=== PATIENT | female | born 1935 | race Caucasian/White ===

== ENCOUNTER → 2018-01-01 08:52 | Outpatient (CLI) | payer MEDICARE, BC, OTHER, SELFPAY ==
--- NOTE | 2018-01-01 09:00 | BD_ITS ---
STUDY: DUAL ENERGY X-RAY ABSORPTIOMETRY / DXA REASON FOR EXAM: Female, 82 years old. The patient is postmenopausal. Loss of height of 1 inch. TECHNIQUE: Bone Mineral Density (BMD) measurements of lumbar spine and bilateral hips were obtained. COMPARISON: Comparison is made with prior study dated December 28, 2015. FINDINGS: Lumbar Spine (L1-L4): g/cm2 (1.070) / T-score (-1.1) / Z-score (0.8) Findings are suggestive of osteopenia with a low fracture risk. Left Femur Total: g/cm2 (0.724) / T-score (-2.3) / Z-score (-0.2) Left Femoral Neck: g/cm2 (0.579) / T-score (-3.3) / Z-score (-1.1) Right Femur Total: g/cm2 (0.776) / T-score (-1.8) / Z-score (0.2) Right Femoral Neck: g/cm2 (0.703) / T-score (-2.4) / Z-score (-0.2) The T-Scores on the most recent prior examination were: Lumbar Spine (L1-L4): There has been worsening of bone density since the previous examination. Left Femur Total: which represents an improvement of 3.6%. Right Femur Total: which represents an improvement of 0.6%. BD/Dexa Bone Density Study IMPRESSION: The patient is considered osteoporotic as outlined below according to World [employer] Organization (WHO) criteria with a high fracture risk. There has been improvement of bone density since the previous examination. Reference Information: The T-score is the number of standard deviations above or below the standard which is normal for young adults at their peak bone mineral density. The World Health Organization (WHO) interprets the T-scores as follows: Above -1 Normal bone density Between -1 and -2.5 Osteopenia Equal to / or below -2.5 Osteoporosis As a practical clinical guideline, osteopenia may be graded as follows: Mild -1 through -1.5 Moderate -1.6 through -2.0 Severe -2.1 through -2.4 The Z-score is the number of standard deviations above or below age-matched controls. A Z-score of less than -1.5 would be considered abnormal. References: 1. NIH Osteoporosis and Related Bone Diseases http://www.osteo.org 2. International Society for Clinical Densitometry http://www.iscd.org 3. National Osteoporosis Foundation http://www.nof.org Electronically Signed: Arjun Dan MD at 14:40 EDT Tel [phone], Service support ,
== END ==
PROVIDERS: Family Provider Internal Medicine; PCP Internal Medicine; Visit Provider Internal Medicine
DX: Z78.0 Asymptomatic menopausal state (principal)
CPT/HCPCS: 77080

== ENCOUNTER → 2018-06-11 09:45 | Outpatient (CLI) | payer MEDICARE, BC, OTHER, SELFPAY ==
--- NOTE | 2018-06-11 09:50 | CDU_ITS ---
Reason For Study: CAROTID STENOSIS Rt. Velocities/BP Lt. Velocities/BP Prox CCA 69.8/11.1 cm/sec. Prox CCA 68.4/13.0 cm/sec. Mid CCA 87.9/16.4 cm/sec. Mid CCA 85.0/17.0 cm/sec. Dist CCA 75.0/13.5 cm/sec. Dist CCA 78.0/15.2 cm/sec. Prox ICA 80.3/20.5 cm/sec. Prox ICA 78.6/17.6 cm/sec. Mid ICA 97.9/23.5 cm/sec. Mid ICA 90.3/21.7 cm/sec. Dist ICA 103.0/22.9 cm/sec. Dist ICA 129.0/35.4 cm/sec. Rt. ICA/CCA = 103.0/87.9=1.2. Lt. ICA/CCA = 129.0/85.0=1.5. Prox ECA 191.0/0.0 cm/sec. Prox ECA 105.0/5.28 cm/sec. Rt. Vert. 42.0/8.25 cm/sec. Lt. Vert. 39.7/9.82 cm/sec. Right Extracranial There is homogeneous, smooth atherosclerotic plaque noted in the right common carotid artery. There is heterogeneous, irregular atherosclerotic plaque noted in the right internal carotid artery. There is heterogeneous, irregular atherosclerotic plaque noted in the right external carotid artery. Antegrade flow is noted in the right vertebral artery. Left Extracranial There is homogeneous, smooth atherosclerotic plaque noted in the left common carotid artery. There is heterogeneous, irregular atherosclerotic plaque noted in the left internal carotid artery. The tortuous nature of the left distal internal carotid artery may result in flow velocities overestimating the degree of stenosis. There is heterogeneous, irregular atherosclerotic plaque noted in the left external carotid artery. Antegrade flow is noted in the left vertebral artery. Procedure Carotid Duplex [id number]. The exam was diagnostic. Exam performed in department. Interpretation Summary Mild (<50%) stenosis right extracranial internal carotid. However, acoustic shadowing is noted in the proximal right internal carotid artery, which obscures visualization of the arterial lumen. Therefore, the degree of stenosis may exceed that which is estimated by velocity criteria alone, and clinical correlation is advised. Mild (<50%) stenosis left extracranial internal carotid. Flow within the vertebral arteries is antegrade bilaterally. Significant stenosis is noted in the right external carotid artery. Ordering Physician: Audrey Golden Referring Physician: Audrey Golden Performed By: Leanna Scanlon, HAWA, RVT
== END ==
PROVIDERS: Family Provider Internal Medicine; PCP Internal Medicine; Visit Provider Internal Medicine
DX: I65.23 Occlusion and stenosis of bilateral carotid arteries (principal)
CPT/HCPCS: 93880

== ENCOUNTER → 2018-07-02 09:19 | Outpatient (CLI) | payer MEDICARE, BC, OTHER, SELFPAY ==
--- NOTE | 2018-07-02 09:23 | CT_ITS ---
STUDY: CT ANGIOGRAM OF THE NECK WITH CONTRAST REASON FOR EXAM: Female, 83 years old. Bilateral carotid stenosis. RADIATION DOSAGE (If Supplied By Facility): CTDIvol = ( 19.05 ) mGy, DLP = ( 524.63 ) mGycm. Individualized dose optimization techniques were used for this CT.? TECHNIQUE: IV contrast Isovue-370, 100 mL. Thin slice helical [address] endocrine was performed of the cervical vasculature. Coronal and sagittal, curved planar, 3-D volume rendered reformatted images and MIP reformatted images saved to the PACS archive. COMPARISON: Carotid duplex ultrasound 06/11/2018. FINDINGS: Extra cranial soft tissues including orbital contents exhibit no acute process. Paranasal sinuses are clear. Mastoid air cells and middle ear cavities are clear. Craniofacial osseous structures unremarkable. There is prominent multilevel cervical degenerative disc disease with uncovertebral joint hypertrophy contributing to foraminal narrowing between C5-C6, C6-C7. Mild to moderate foraminal narrowing. Apical lungs are clear but with features consistent with underlying COPD/emphysema. Apical thoracic cage intact. Upper thoracic soft tissues unremarkable. Supraclavicular soft tissues exhibit no acute process. Mild heterogeneity of the thyroid gland without dominant nodule. No cervical mass or lymphadenopathy. Normal submandibular and parotid glands. Normal pharyngeal and laryngeal structures. No acute intracranial process is evident in limited evaluation. Grossly normal arborization of the intracranial arteries without visible stenosis, occlusion or aneurysm. Cervical vertebral arteries: Normal. Aorta: Mild atherosclerosis, otherwise normal, widely patent three-vessel cervical arch branching and normal subclavian arteries. Right carotid artery: Minimal plaque of the bulb, no stenosis. Left carotid artery: Minimal plaque of the bulb, no stenosis. CT/CTA Neck W/WO Contrast IMPRESSION: There is no carotid or vertebral artery stenosis. NASCET Criteria : Favian H, et al. Quantitative Vascular Measurements in Arterial Occlusive Disease. [employer] 2005;25:7919-2109. Electronically Signed: Alvaro Lancaster, at 17:50 EDT Tel , Service support ,
[2018-07-02 09:36] LABS: CREATININE FINGERSTICK 0.7 mg/dL (0.55-1.02); EGFR FINGERSTICK > 60.0000 mL/min (>60)
== END ==
PROVIDERS: Family Provider Internal Medicine; PCP Internal Medicine; Referring Provider Internal Medicine; Visit Provider Internal Medicine
DX: I65.23 Occlusion and stenosis of bilateral carotid arteries (principal)
CPT/HCPCS: 70498; Q9967

== ENCOUNTER → 2018-10-14 12:09 | Outpatient (CLI) | payer MEDICARE, BC, OTHER, SELFPAY ==
--- NOTE | 2018-10-14 12:16 | BI_ITS ---
MAMMOGRAPHY - BILATERAL SCREENING REASON FOR EXAM: Female, 83 years old. Routine annual screening examination. PERTINENT HISTORY: Non-contributory. TECHNIQUE: Digital bilateral breast jesse (3D mammographic acquisition) in the CC and MLO projections. 2-D mediolateral oblique (MLO) and craniocaudad (CC) views of both breasts were obtained. CAD: Full Field Digital Mammography with Computer Added Detection was performed. COMPARISON: Comparison is made with prior study dated August 25, 2017 and August 11, 2016. FINDINGS: Breast Composition: There are scattered areas of fibroglandular density. There are no dominant masses or suspicious calcifications. Stable small benign-appearing left axillary lymph nodes. No other significant abnormalities are identified. There has been no significant change since the prior study. BI/SCREENING MAMM (CAD), BILAT IMPRESSION: Stable bilateral screening mammogram. Yearly follow-up mammogram recommended. (A) ASSESSMENT CATEGORY: BIRADS Category 2: Benign. A letter regarding these results will be sent to the patient by the facility within 30 days. Approximately 10% of breast cancers are not detected by mammography. A normal mammogram should not delay biopsy of a clinically suspicious abnormality. [id number] Electronically Signed: Arjun Dan MD at 13:45 EST Tel [phone], Service support ,
--- OUTSIDE RECORDS SUMMARY | 2018-12-16 23:14 | XMS RPT_ITS | Continuity of Care Document ---
:1935 Author Organization [facility] Address [address] [place] [address] Phone Care Team Providers Name Role Phone Ke Rodriguez DOa A Unavailable Fast , Audrey A Unavailable Dr. Tyler Bagley Unavailable Sully Wright Unavailable Unavailable Kindra Vargas Unavailable Unavailable Az Graves Unavailable Unavailable Unavailable Unavailable Problems Name Dates Details Abnormal blood chemistry (R79.9, 790.6) Status: Active Abnormal Chest X-Ray (793.9) Status: Active Allergic reaction, initial encounter (T78.40XA, 995.3) Status: Active Annual Medicare Phyiscal WITHOUT abnormal findings (Renamed from Encounter for general adult medical examination without abnormal findings) (Z00.00, V70.9) Status: Active Bilateral carotid artery stenosis (I65.23, 433.10) Comments: cta was negative Status: Active BMI 29.0-29.9,adult (Z68.29, V85.25) Status: Active BMI 30.0-30.9,adult (Z68.30, V85.30) Status: Active Branch retinal artery occlusion of right eye (H34.231, 362.32) Comments: workup neg Status: Active Carpal tunnel syndrome, unspecified laterality (G56.00, 354.0) Status: Active Central retinal vein occlusion (H34.8192, 362.35) Comments: has had work up was off aspirin - had echo /carotids /hypercoag workup and rule out vasculitis Status: Active Chronic pain of left knee (M25.562, 719.46) Comments: better Status: Active Colonoscopy Comments: 10-21-09 Repeat 5 yrs. Status: Active Encounter for screening mammogram for breast cancer (Renamed from Encounter for screening mammogram for malignant neoplasm of breast) (Z12.31, V76.12) Status: Active Encounter for screening mammogram for breast cancer (Renamed from Encounter for screening mammogram for malignant neoplasm of breast) (Z12.31, V76.12) Status: Active Encounter for screening mammogram for breast cancer (Renamed from Encounter for screening mammogram for malignant neoplasm of breast) (Z12.31, V76.12) Status: Active Eustachian tube dysfunction (H69.80, 381.81) Status: Active Family history of diabetes mellitus (Z83.3, V18.0) Status: Active Family history of ischemic heart disease (Z82.49, V17.3) Status: Active Family history of malignant neoplasm of gastrointestinal tract (Z80.0, V16.0) Status: Active Fatigue (R53.83, 780.79) -Jun-2012 Status: Active Gastroesophageal reflux disease without esophagitis (K21.9, 530.81) Status: Active Hearing loss, unspecified laterality (389.9) Status: Active Hematuria (R31.9, 599.70) Comments: etioligy infection vs stone vs primary bladder problem?-- send for cx and rto end of week to re-eval if needs rx vs ct vs urology consult --pt remains asx at time Status: Active Herpes zoster without complication (B02.9, 053.9) Status: Active History of colon polyps (Z86.010, V12.72) Status: Active Hypercholesterolemia (E78.00, 272.0) Status: Active Hyperglycemia (R73.9, 790.29) Status: Active Hypertensive heart disease without congestive heart failure (I11.9, 402.90) Status: Active Impaired fasting glucose (R73.01, 790.21) Status: Active [facility]LL[facility] EXAM Status: Active [facility] Physical Status: Active Need for prophylactic vaccination and inoculation against influenza (Z23, V04.81) Status: Active Need for prophylactic vaccination and inoculation against influenza (Renamed from Need for immunization against influenza) (Z23, V04.81) Status: Active Need for prophylactic vaccination and inoculation against influenza (Renamed from Need for immunization against influenza) (Z23, V04.81) Status: Active Nonsmoker (Z78.9, V49.89) Status: Active Obstructive sleep apnea, adult (G47.33, 327.23) Comments: chronic stable-continue present regimen Status: Active Osteoarthritis (M19.90, 715.90) Comments: getting knee replacement Status: Active Osteoporosis (M81.0, 733.00) Status: Active Other abnormal finding of urine (R82.99, 791.9) Status: Active Other intervertebral disc degeneration, lumbar region (M51.36, 722.52) Status: Active Other specified cardiac dysrhythmias (I49.8, 427.89) Status: Active Other viral warts (B07.8, 078.19) Comments: cryo x 40 seconds right index finger Status: Active Peripheral vascular disease (I73.9, 443.9) Status: Active Postmenopausal (Renamed from Postmenopausal status) (Z78.0, V49.81) Status: Active Pre-operative exam (Renamed from Encounter for pre-operative examination) (Z01.818, V72.84) Status: Active screening Status: Active SCREENING MAMMOGRAM NEC (Z12.31, V76.12) Status: Active 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) Comments: improving Status: Active Upper respiratory tract infection, unspecified type (J06.9, 465.9) Status: Active Urinary frequency (R35.0, 788.41) Status: Active Urinary tract infection, site not specified (N39.0, 599.0) Status: Active Vitamin B 12 deficiency (E53.8, 266.2) Status: Active Vitamin D deficiency (E55.9, 268.9) Status: Active Medications Name Dates Details Aspirin 325 MG Oral Tablet Active 1 tab daily (325 MG) Atorvastatin Calcium 80 MG Oral Tablet 1 (one) Tablet qd for 0 days Quantity: 90 {Tablet} Refills: 3 Ordered:30-Sep-2018 Fast DO, Audrey AFast DO, Audrey A Start : 30-Sep-2018 Active Atorvastatin Calcium 80 MG Oral Tablet 1 (one) Tablet qd for 0 days Quantity: 90 {Tablet} Refills: 3 Ordered:30-Sep-2018 Audrey Rodriguez DO, DO Audrey Simon Start : 30-Sep-2018 Active Lotrel 10-40 MG Oral Capsule 1 Capsule daily for 90 days Quantity: 90 {Capsule} Refills: 3 Ordered:04-Feb-2018 Audrey Rodriguez DO, DO Audrey Simon Start : 04-Feb-2018 Active Micardis 40 MG Oral Tablet 1 Tablet qd for 90 days Quantity: 90 {Tablet} Refills: 3 Ordered:17-May-2018 Audrey Rodriguez DO, DO Audrey Simon Start : 17-May-2018 Active Mobic 7.5 MG Oral Tablet 1 (one) Tablet bid prn with food for 0 days Quantity: 180 {Tablet} Refills: 1 Ordered:03-Jun-2018 Audrey Rodriguez DO, DO Audrey Simon Start : 03-Jun-2018 Active Omeprazole 20 MG Oral Capsule Delayed Release [address] qd for 0 days Quantity: 90 {Capsule} Refills: 3 Ordered:18-Dec-2017 Audrey Rodriguez DO, DO Audrey Simon Start : 18-Dec-2017 Active OXYBUTYNIN CHLORIDE ER, 10MG (Oral Tablet Extended Release 24 Hour) 1 tab daily (10 MG) Active Vitamin D3 5000 UNIT Oral Capsule 1 (one) Capsule qd for 0 days Quantity: 60 {Capsule} Refills: 0 Ordered:05-Apr-2016 Audrey Rodriguez DO, DO Audrey Simon Start : 05-Apr-2016 Active Comments:take 3 one day - 1 rest of week AMOXICILLIN, 875MG (Oral Tablet) 1 (one) Tablet bid for 21 days Quantity: 42 {Tablet} Refills: 0 Ordered:21-Nov-2013 Audrey Rodriguez DO, DO Audrey Simon Start : 21-Nov-2013 End : 12-Dec-2013 Inactive Comments:with probiotic Atorvastatin Calcium 10 MG Oral Tablet 1 (one) Tablet Tablet qd for 0 days Quantity: 90 {Tablet} Refills: 3 Ordered:24-Jun-2018 Audrey Rodriguez DO, DO Audrey Simon Start : 04-Feb-2018 End : 24-Jun-2018 Inactive Atorvastatin Calcium 20 MG Oral Tablet 11/2 qd (20 MG) Start : 01-Feb-2018 Inactive BENICAR, 20MG (Oral Tablet) 1 (one) Tablet qd for 0 days Quantity: 30 {Tablet} Refills: 3 Ordered:01-Feb-2010 Kindra Vargas Start : 12-May-2009 Inactive BIAXIN XL PAC, 500MG (Oral Tablet Extended Release 24 Hour) 2 (two) Tablet ER 24HR as directed for 0 days Quantity: 1 {Package(s)} Refills: 0 Ordered:20-Nov-2006 [place] [facility] Start : 20-Nov-2006 End : 26-Jul-2007 Inactive Comments:hold zocor while take DIFLUCAN, 150MG (Oral Tablet) 1 (one) Tablet qd for 0 days Quantity: 5 {Tablet} Refills: 0 Ordered:01-Feb-2010 Kindra Vargas Start : 02-Nov-2009 Inactive METOPROLOL SUCCINATE, 50MG (Oral Tablet Extended Release 24 Hour) 1 Tablet ER 24HR daily for 0 days Quantity: 30 {Tablet_ER_24HR} Refills: 3 Ordered:06-Apr-2011 KENDALL Matamoros Start : 05-Apr-2011 End : 06-Apr-2011 Inactive Comments:disregard first fax for 25mg, pt to take 50mg-jjp VITAMIN B-12, 500MCG (Sublingual Tablet Sublingual) 1 (one) Tab Sublingual daily for 30 days Quantity: 30 {Tablet} Refills: 0 Ordered:08-Feb-2016 [place] NIETO, Audrey AFsly DO, Audrey A Start : 30-Nov-2015 End : 30-Dec-2015 Inactive ZOSTAVAX, 23026WHQ/0.65ML (Subcutaneous Solution Reconstituted) 1 For Solution x1-bring to doctors office once picked up for 0 days Quantity: 1 {For_Solution} Refills: 0 Ordered:01-Feb-2010 Kindra Vargas Start : 19-Oct-2009 Inactive ZOVIRAX, 5% (External Ointment) PRN for 0 days Refills: 0 Ordered:15-Oct-2012 Kindra Vargas End : 15-Oct-2012 Inactive Augmentin 875-125 MG Oral Tablet 1 Tablet Twice daily for 0 days Quantity: 28 {Tablet} Refills: 0 Ordered:05-Jun-2016 Kindra Vargas Start : 20-Oct-2015 End : 05-Jun-2016 Discontinued BONIVA, 150MG (Oral Tablet) 1 (one) Tablet q month for 90 days Quantity: 3 {Tablet} Refills: 3 Ordered:12-Dec-2011 Fast DO, Audrey AFast DO, Audrey A Start : 12-Dec-2011 End : 12-Dec-2011 Discontinued CALCIUM 500, 500MG (Oral Tablet) 1 (one) Tablet tid for 0 days Quantity: 90 {Tablet} Refills: 0 Ordered:04-Dec-2017 Fast DO, Audrey AFast DO, Audrey A Start : 02-Nov-2009 End : 04-Dec-2017 Discontinued Comments:This order discontinued per [facility]. Calcium Citrate Plus Oral Tablet 1 (one) Tablet 500 mg qd for 0 days Quantity: 30 {Tablet} Refills: 0 Ordered:13-Mar-2018 Carley Wise Start : 04-Dec-2017 End : 13-Mar-2018 Discontinued CEFDINIR, 300MG (Oral Capsule) 1 Capsule bid for 0 days Quantity: 20 {Capsule} Refills: 0 Ordered:15-Oct-2012 Fast DO, Audrey AFast DO, Audrey A Start : 15-Oct-2012 End : 15-Oct-2012 Discontinued CIPRO, 500MG (Oral Tablet) 1 (one) Tablet bid for 0 days Quantity: 20 {Tablet} Refills: 0 Ordered:01-Jul-2012 Fast DO, Audrey AFast DO, Audrey A Start : 01-Jul-2012 End : 01-Jul-2012 Discontinued Claritin 10 MG Oral Tablet 1 tab Tablet qd, prn for 0 days Quantity: 30 {Tablet} Refills: 0 Ordered:06-Aug-2017 Kindra Vargas Start : 15-Oct-2012 End : 06-Aug-2017 Discontinued Crestor 20 MG Oral Tablet 1/2 Tablet 3 times weekly for 0 days Quantity: 90 {Tablet} Refills: 3 Ordered:05-Jun-2016 Fast DO, Audrey AFast DO, Audrey A Start : 05-Jun-2016 End : 05-Jun-2016 Discontinued Crestor 20 MG Oral Tablet 1/2 Tablet 3 times weekly for 0 days Quantity: 90 {Tablet} Refills: 3 Ordered:05-Jun-2016 Fast DO, Audrey AFast DO, Audrey A Start : 05-Jun-2016 End : 05-Jun-2016 Discontinued ERGOCALCIFEROL, 52802OYUF (Oral Capsule) 1 (one) Capsule twice a week for 0 days Quantity: 24 {Capsule} Refills: 0 Ordered:12-May-2009 [place] NIETO Audrey SALINASsly DO, Audrey A Start : 12-May-2009 End : 12-May-2009 Discontinued FLAVOXATE HCL, 100MG (Oral Tablet) 1 Tablet tid for 0 days Quantity: 12 {Tablet} Refills: 0 Ordered:17-Jul-2012 [place] NIETO Audrey SALINASsly DO, Audrey A Start : 17-Jul-2012 End : 17-Jul-2012 Discontinued FOSAMAX, 70MG (Oral Tablet) 1 Tablet Daily for 0 days Quantity: 12 {Tablet} Refills: 3 Ordered:30-Jul-2006 Marium Liu RN Start : 30-Jul-2006 End : 12-Sep-2006 Discontinued HYDROCHLOROTHIAZIDE, 25MG (Oral Tablet) 1 (one) Tablet qd for 90 days Quantity: 90 {Tablet} Refills: 3 Ordered:28-May-2013 [place] NIETO Audrey SALINASsly NIETO Audrey A Start : 28-May-2013 End : 28-May-2013 Discontinued Comments:but she doesnt take it qd because she doesnt want to have to be using the restroom all day KEFLEX, 500MG (Oral Capsule) 1 (one) Capsule bid [id number] for 0 days Quantity: 20 {Capsule} Refills: 0 Ordered:30-Aug-2012 [place] NIETO Audrey SALINASsly , Audrey A Start : 30-Aug-2012 End : 30-Aug-2012 Discontinued Metoprolol Tartrate 25 MG Oral Tablet 1 (one) Tablet qd for 90 days Quantity: 90 {Tablet} Refills: 3 Ordered:06-Aug-2017 Kindra Vargas Start : 28-Jan-2014 End : 06-Aug-2017 Discontinued NASONEX, 50MCG/ACT (Nasal Suspension) 2 (two) Suspension qd for 0 days Quantity: 1 {Suspension} Refills: 0 Ordered:15-Oct-2012 [place] NIETO Audrey AFast DO, Audrey A Start : 15-Oct-2012 End : 15-Oct-2012 Discontinued Neurontin 100 MG Oral Capsule 1 (one) Capsule Capsule tid for 0 days Quantity: 360 {Capsule} Refills: 2 Ordered:06-Aug-2017 Kindra Vargas Start : 19-Jun-2016 End : 06-Aug-2017 Discontinued Comments:1 pill tid for 3 days then 2 tid for 3 days then 3 tid Pravastatin Sodium 10 MG Oral Tablet 1 (one) Tablet Tablet qeve for 0 days Quantity: 30 {Tablet} Refills: 3 Ordered:06-Sep-2016 [place] DO, Audrey AFast DO, Audrey A Start : 06-Sep-2016 End : 06-Sep-2016 Discontinued PredniSONE 10 MG Oral Tablet 1 Tablet uad for 0 days Quantity: 18 {QS} Refills: 0 Ordered:08-Dec-2016 Kindra Vargas Start : 06-Sep-2016 End : 08-Dec-2016 Discontinued Comments:3 pills for 3 days 2 pills for 3 days 1 pill for 3 days - take with food in am PRILOSEC, 20MG (Oral Capsule Delayed Release) [address] qd, prn for 0 days Quantity: 90 {Capsule_DR} Refills: 3 Ordered:12-Dec-2011 [place] NIETO Audrey AFast DO, Audrey A Start : 12-Dec-2011 End : 12-Dec-2011 Discontinued Probiotic Oral Capsule 1 (one) Capsule Capsule 2 hours after atb for 0 days Quantity: 1 {Bottle} Refills: 0 Ordered:06-Aug-2017 Kindra Vargas Start : 27-Oct-2013 End : 06-Aug-2017 Discontinued Comments:or 20 for 10 days Prolia 60 MG/ML Subcutaneous Solution 1 (one) Solution sq q 6months for 0 days Quantity: 1 {Pre-filled_Pen_Syringe} Refills: 1 Ordered:14-Jun-2016 [place] NIETO, Audrey AFast DO, Audrey A Start : 14-Jun-2016 End : 14-Jun-2016 Discontinued Comments:Lot #:[id number] date:07/2018Amount given:60mg/mlRoute: SQSite given: left armGiven by: ARABELLA Burgos Valtrex 1 GM Oral Tablet 1 (one) Tablet Tablet tid for 0 days Quantity: 21 {Tablet} Refills: 0 Ordered:06-Aug-2017 Kindra Vargas Start : 19-Jun-2016 End : 06-Aug-2017 Discontinued ZOCOR, 40MG (Oral Tablet) 1 Tablet Daily for 0 days Quantity: 90 {Tablet} Refills: 3 Ordered:20-Sep-2007 Fast DO, Audrey AFast DO, Audrey A Start : 20-Sep-2007 End : 20-Sep-2007 Discontinued Comments:generic Allergies and Adverse Reactions Name Dates Details BENICAR, 20MG (Oral Tablet) Status: Active (Allergy) Comments: dizzy Cipro *FLUOROQUINOLONES* (Allergy) Status: Active Comments: severe myalgia Estrace *VAGINAL PRODUCTS* Status: Active (Allergy) Comments: severe vaginal pain No Known Drug Allergies (Allergy) Onset: 28-May-2013 Status: Inactive Prolia *ENDOCRINE AND METABOLIC Status: Active AGENTS - MISC.* (Allergy) Comments: joint pain hives gi upset Past Medical History Name Dates Details Abnormal mammogram (R92.8, 793.80) Status: Resolved as of 12-May-2009 ACUTE CYSTITIS (N30.00, 595.0) Comments: completed atb course 2 weeks ago -- no symptoms Status: Resolved as of 24-Jun-2014 Acute sinusitis, unspecified (J01.90, 461.9) 08-Aug-2011 Status: Resolved as of 22-Jan-2013 BMI 28.0-28.9,adult (Z68.28, V85.24) Status: Inactive as of 24-Jun-2018 BMI 29.0-29.9,adult (Z68.29, V85.25) Status: Inactive as of 04-Dec-2017 BMI 29.0-29.9,adult (Z68.29, V85.25) Status: Inactive as of 30-Sep-2018 Bronchitis (J40, 490) Status: Resolved as of 03-Feb-2009 Candidiasis, unspecified (B37.9, 112.9) Status: Resolved as of 01-Feb-2010 Cerumen impaction (H61.20, 380.4) Comments: refused irrigation Status: Resolved as of 20-Nov-2011 Chest pain (R07.9, 786.59) Status: Resolved as of 03-Feb-2009 claudication Status: Inactive as of 30-Mar-2009 Cold sore (B00.1, 054.9) Status: Resolved as of 22-Jan-2013 Contact dermatitis and other eczema due to plants (except food) (L25.5, 692.6) Status: Resolved as of 03-May-2010 Dysuria (R30.0, 788.1) Status: Resolved as of 22-Jan-2013 Dysuria (R30.0, 788.1) Status: Resolved as of 30-Nov-2010 Edema (R60.9, 782.3) Status: Resolved as of 03-Feb-2009 Encounter for Medicare annual wellness exam (Z00.00, V70.0) Status: Inactive as of 24-Jun-2014 Encounter for screening for malignant neoplasm of cervix (Z12.4, V76.2) Status: Inactive as of 24-Jun-2014 Hematuria (Renamed from Blood in the urine) (R31.9, 599.7) Status: Inactive as of 04-Dec-2017 Immunization Hx: Shingles vaccine (Renamed from Shingles vaccine) Comments: 11/03 Status: Inactive Left leg swelling (M79.89, 729.81) Status: Inactive as of 04-Dec-2017 lower ext edema Status: Resolved as of 03-Feb-2009 Need for prophylactic vaccination and inoculation against influenza (Z23, V04.81) Status: Inactive as of 02-Sep-2010 screening Status: Inactive as of 24-Aug-2009 screening Status: Inactive as of 30-Nov-2010 screening Status: Inactive as of 24-Jun-2014 screening Status: Inactive as of 22-Jan-2013 supraventricular ectopy- avoid caffeine and decongestants- has had recent full cardiac workup and not significant enough to treat- avoid caffeine and decongestants Status: Inactive as of 30-Mar-2009 Swelling of limb (M79.89, 729.81) Status: Resolved as of 30-Nov-2010 Tachycardia, unspecified (R00.0, 785.0) Status: Inactive as of 04-Dec-2017 Unspecified Diagnosis Status: Inactive as of 24-Jun-2014 Unspecified Diagnosis Status: Inactive as of 22-Jan-2013 Urinary frequency (Renamed from Urine frequency) (R35.0, 788.41) Status: Inactive as of 04-Dec-2017 Procedures Procedure Dates Details left partial knee replacement 05/10- [place] Completed Tonsillectomy Completed tubal ligation Completed typanostomy- bilateral- 2010 Completed Date Value Details 02-Jul-2018 CTA Neck W/WO Contrast Result: Comments: See Note; NOTES: [facility] Imaging Services [address] [place] [address] CTA Neck W/WO Contrast MR#: [id number] Acct: [id number] Name: MANISH KERN Rep #: [id number] : 1935 F 83 From: Alvaro Lancaster MD PCP: Audrey Rodriguez DO Status: REG CLI Study: CTA Neck W/WO Contrast Date of Exam: 07/02/18 Exam# [id number] Ordering Dr: Audrey Rodriguez DO STUDY: CT ANGIOGR AM OF THE NECK WITH CONTRAST REASON FOR EXAM: Female, 83 years old. Bilateral carotid stenosis. RADIATION DOSAGE (If Supplied By Facility): CTDIvol = ( 19.05 ) mGy, DLP = ( 524.63 ) mGycm. Individuali zed dose optimization techniques were used for this CT.? TECHNIQUE: IV contrast Isovue-370, 100 mL. Thin slice helical [address] endocrine was performed of the cervical vasculature. Coronal and sagittal, curv ed planar, 3-D volume rendered reformatted images and MIP reformatted images saved to the PACS archive. COMPARISON: Carotid duplex ultrasound 06/11/2018. FINDINGS: Extra cranial soft tissues including orbital contents exhibit no acute process. Paranasal sinuses are clear. Mastoid air cells and middle ear cavities are clear. Craniofacial osseous structures unremark able. There is prominent multilevel cervical degenerative disc disease with uncovertebral joint hypertrophy contributing to foraminal narrowing between C5-C6, C6-C7. Mild to moderate foraminal narrowing . Apical lungs are clear but with features consistent with underlying COPD/emphysema. Apical thoracic cage intact. Upper thoracic soft tissues unremarkable. Supraclavicular soft tissues exhibit no acute process. Mild heterogeneity of the thyroid gland without dominant nodule. No cervical mass or lymphadenopathy. Normal submandibular and parotid glands. Normal pharyngeal and laryngeal structures. No ac elem intracranial process is evident in limited evaluation. Grossly normal arborization of the intracranial arteries without visible stenosis, occlusion or aneurysm. Cervical vertebral arteries: Normal. Aorta: Mild atherosclerosis, otherwise normal, widely patent three-vessel cervical arch branching and normal subclavian arteries. Right carotid artery: Minimal plaque of the bulb, no stenosis. Left carotid artery: Minimal plaque of the bulb, no stenosis. CT/CTA Neck W/WO Contrast IMPRESSION: There is no carotid or vertebral artery stenosis. NASCET Criteria : Third Loader H, et al. Quantitative Vascular Measurements in Arterial Occlusive Disease. [employer] 2005;25:8681-2911. Electronically Signed: Alvaro Lancaster, at 17:50 EDT Tel , Service support , CC: Audrey Rodriguez DO Barrel Bridge Assembler: Signed 15-Jun-2018 Carotid Duplex Ultrasound Result: Comments: See Note; NOTES: [facility] Cardiovascular Services [address] [place] [address] Carotid Duplex Ultrasound 06/11/18 1013 MR#: [id number] Acct: [id number] Name: MANISH ERICKSON Rep #: [id number] : 1935 82 From: Archie Shipman MD Attending Dr: Audrey Rodriguez DO Status: REG CLI Ordering Dr: Audrey Rodriguez DO Date: 06/11/18 Location: [facility] Sex: F C Admitted: Reason For Study: CAROTID STENOSIS Rt. Velocities/BP Lt. Velocities/BP Prox CCA 69.8/11.1 cm/sec. Prox CCA 68.4/13.0 cm/sec. Mid CCA 87.9/16.4 cm/sec. Mid CCA 85.0/17.0 cm/sec. Dist CCA 75.0/13.5 cm/sec. Dist CCA 78.0/15.2 cm/sec. Prox ICA 80.3/20.5 cm/sec. Prox ICA 78.6/17.6 cm/sec. Mid ICA 97.9/23.5 cm/sec. Mid ICA 90.3/21.7 cm/sec. Dist ICA 103.0/22.9 cm/sec. Dist ICA 129.0/35.4 cm/sec. Rt. ICA/CCA = 103 .0/87.9=1.2. Lt. ICA/CCA = 129.0/85.0=1.5. Prox ECA 191.0/0.0 cm/sec. Prox ECA 105.0/5.28 cm/sec. Rt. Vert. 42.0/8.25 cm/sec. Lt. Vert. 39.7/9.82 cm/sec. Right Extracranial There is homogeneous, smooth atherosclerotic plaque noted in the right common carotid artery. There is heterogeneous, irregular atherosclerotic plaque noted in the right internal carotid artery. There is heterogeneous, irregular a therosclerotic plaque noted in the right external carotid artery. Antegrade flow is noted in the right vertebral artery. Left Extracranial There is homogeneous, smooth atherosclerotic plaque noted in t he left common carotid artery. There is heterogeneous, irregular atherosclerotic plaque noted in the left internal carotid artery. The tortuous nature of the left distal internal carotid artery may resu lt in flow velocities overestimating the degree of stenosis. There is heterogeneous, irregular atherosclerotic plaque noted in the left external carotid artery. Antegrade flow is noted in the left verte bral artery. Procedure Carotid Duplex 55241. The exam was diagnostic. Exam performed in department. Interpretation Summary Mild (<50%) stenosis right extracranial internal carotid. However, ac oustic shadowing is noted in the proximal right internal carotid artery, which obscures visualization of the arterial lumen. Therefore, the degree of stenosis may exceed that which is estimated by veloc ity criteria alone, and clinical correlation is advised. Mild (<50%) stenosis left extracranial internal carotid. Flow within the vertebral arteries is antegrade bilaterally. Significant stenosi s is noted in the right external carotid artery. Ordering Physician: Audrey Rodriguez Referring Physic zach: Audrey Rodriguez Performed By: Leanna Scanlon, RDCS, RVT 06/15/18 9760 Date Archie Fowler MD CC: Audrey Rodriguez DO; Audrey Rodriguez DO Date Dictated: 06/11/18 1013 Date Transcribed: 06/15/18 1418 Barrel Bridge Assembler: Signed 01-Jan-2018 Dexa Bone Density Study Result: Comments: See Note; NOTES: [facility] Imaging Services [address] [place] [address] Dexa Bone Density Study MR#: [id number] Acct: [id number] Name: MANISH KERN Rep #: [id number] : 1935 F 82 From: Arjun Weathers MD PCP: Audrey Rodriguez DO Status: REG CLI Study: Dexa Bone Density Study Date of Exam: 01/01/18 Exam# [id number] Ordering Dr: Audrey Rodriguez DO STUDY: DUAL ENERGY X-RAY ABSORPTIOMETRY / DXA REASON FOR EXAM: Female, 82 years old. The patient is postmenopausal. Loss of height of 1 inch. TECHNIQUE: Bone Mineral Density (BMD) measurements of lumbar spine and bilateral hips were obtained. COMPARISON: Comparison is made with prior study dated December 28, 2015. FINDINGS: Lumbar Spine (L1-L4): g/cm2 (1.070) / T-score (-1.1) / Z-score (0.8) Findings are suggestive of osteopenia with a low fracture risk. Left Femur Total: g/cm2 (0.724) / T-score (-2.3) / Z-score (-0.2) Left Femoral Neck: g/cm2 (0.579) / T-score (-3.3) / Z-s core (-1.1) Right Femur Total: g/cm2 (0.776) / T-score (-1.8) / Z-score (0.2) Right Femoral Neck: g/cm2 (0.703) / T-score (-2.4) / Z-score (-0.2) The T- Scores on the most recent prior examination were: Lumbar Spine (L1-L4): There has been worsening of bone density since the previous examination. Left Femur Total: which represents an improvement of 3.6%. Right Femur Total: which represents an improv ement of 0.6%. BD/Dexa Bone Density Study IMPRESSION: The patient is considered osteoporotic as outlined below according to [employer] ion (WHO) criteria with a high fracture risk. There has been improvement of bone density since the previous examination. Reference Information: The T-score is the n umber of standard deviations above or below the standard which is normal for young adults at their peak bone mineral density. The World Health Organization (WHO) interprets the T-scores as follows: Abo ve -1 Normal bone density Between -1 and -2.5 Osteopenia Equal to / or below - 2.5 Osteoporosis As a practical clinical guideline, osteopenia may be graded as follows: Mild -1 through -1.5 Moderate -1.6 through -2.0 Severe -2.1 through -2.4 The Z-score is the number of standard deviations above or below age-matched controls. A Z-score of less than -1.5 would be considered abnormal. References: 1. NI H Osteoporosis and Related Bone Diseases http://www.osteo.org 2. International Society for Clinical Densitometry http://www.iscd.org 3. National Osteoporosis Foundation http://www.nof.org Electronicall y Signed: Arjun Weathers MD at 14:40 EDT Tel [phone], Service support , CC: Audrey Rodriguez DO Barrel Bridge Assembler: Signed 25-Aug-2017 SCREENING MAMM (CAD), BILAT Result: Comments: See Note; NOTES: [facility] Imaging Services [address] [place] [address] SCREENING MAMM (CAD), BILAT MR#: [id number] Acct: [id number] Name: MANISH KERN Rep #: [id number] : 1935 F 82 From: Arjun Weathers MD PCP: Audrey Rodriguez DO Status: PRE CLI Study: SCREENING MAMM (CAD), BILAT Date of Exam: 08/25/17 Exam# [id number] Ordering Dr: Audrey Rodriguez DO MAMM OGRAPHY - BILATERAL SCREENING REASON FOR EXAM: Female, 82 years old. Routine annual screening examination. PERTINENT HISTORY: Non-contributory. TECHNIQUE: Digital bilateral breast jesse (3D mammograph ic acquisition) in the CC and MLO projections. 2-D mediolateral oblique (MLO) and craniocaudad (CC) views of both breasts were obtained. CAD: Full Field Digital Mammography with Computer Added Detection was performed. COMPARISON: Comparison is made with prior examination dated August 11, 2016 and August 10, 2015. FINDINGS: Breast Composition: There are scatter ed areas of fibroglandular density. There are no dominant masses or suspicious calcifications. No other significant abnormalities are identified. There has been no significant change since the prior s dy. HPBI/SCREENING MAMM (CAD), BILAT IMPRESSION: Stable bilateral screening mammogram. Yearly follow-up mammogram recommended. (A) ASSESSMENT CATEGORY: BIRADS Category 1: Negative. A letter regarding these results will be sent to the patient by the facility within 30 days. Approximately 10% of breast canc ers are not detected by mammography. A normal mammogram should not delay biopsy of a clinically suspicious abnormality. [id number] Electronically Signed: Arjun Weathers MD at 9:39 EST Tel [phone], Service support , CC: Audrey Rodriguez DO Barrel Bridge Assembler: Signed 07-Aug-2017 Venous Duplex Lower Extremity Result: Comments: See Note; NOTES: [facility] Cardiovascular Services [address] [place] [address] Venous Duplex US, Unilateral 08/06/17 1403 MR#: [id number] Acct: [id number] Name: MANISH LOGAN Rep #: [id number] : 1935 82 From: Archie Shipman MD Attending Dr: Audrey Rodriguez DO Status: REG CLI Ordering Dr: Audrey Rodriguez DO Date: 08/06/17 Location: [facility] Sex: F C Admitted: Reas on For Study: SWELLING RIGHT LEFT CFV is compressible, spontaneous, phasic, GSV is normal. competent and demonstrates normal CFV is compressible, spontaneous, phasic, augmentation. competent, and demon strates normal Procedure augmentation. Exam performed in department. FV is compressible, spontaneous, phasic, A preliminary report was called and/or faxed competent and demonstrates normal to DR RODRIGUEZ. a ugmentation. POP V is compressible, spontaneous, phasic, competent and demonstrates normal augmentation. T/P Trunk is compressible. PTV is compressible. LT PerV is compressible. Interpretation Summary Deep veins of the left lower extremity are patent and compressible segmentally. There is no evidence of left lower extremity deep vein thrombosis. Valvular competence appears intact within the proximal deep venous system on the left . The left greater saphenous vein appears patent and compressible segmentally. __ Ordering Physician: Audrey Rodriguez Performed By: Isabel Kern, HAWA, RVT 08/07/172024 Date Archie Shipman MD CC: Audrey Rodriguez DO Date Dictated: 08/06/17 140 Date Transcribed: 08/07/172024 Barrel Bridge Assembler: Signed 23-Jun-2017 Echocardiogram Complete Result: Comments: See Note; NOTES: [facility] Cardiovascular Services [address] [place] [address] Echo Complete 06/22/17 1002 MR#: [id number] Acct: [id number] Name: CONCHAMANISH ep #: [id number] : 1935 81 From: Mac Smith MD Attending Dr: Coco BERG,Elbert Status: REG CLI Ordering Dr: Elbert Sepulveda MD Date: 06/22/17 Location: [facility] Sex: F C Admitted: Reason For Study: AMAUROSIS FUGAX, HTN, retinal artery occlusion Procedure This was a 2D Doppler, Color Flow transthoracic echocardiogram. Exam performed in department. Left Ventricle Normal LV size. Left ventricular systolic function is normal. The estimated ejection fraction is 65 %. No regional wall motion abnormalities noted. Right Ventricle Normal RV size. Normal systolic function. Atria Normal left atrium. N ormal right atrium. Mitral Valve Normal mitral valve. Tricuspid Valve Normal tricuspid valve. Mild (1+) tricuspid valve insufficiency. Pulmonary artery systolic pressure is 33 mmHg. Aortic Valve Carly l aortic valve. Pulmonic Valve Normal pulmonic valve. Great Vessels Normal aortic root. The pulmonary artery is normal size. Normal inferior vena cava. Pericardium/Pleural No pericardial effusion. M Mode/2D Measurements AND Calculations LVIDd: 4.4 cm IVSd: 1.0 cm Ao root diam: 2.7 cm LVIDs: 2.7 cm LVPWd: 1.1 cm LA dimension: 4.0 cm RVDd: 3.0 cm FS: 38.4 % LAV(MOD-bp): 43.1 ml LA A4 area: 14.6 cm2 RA A4 area: 12.5 cm2 LAV(MOD-bp) Indexed: 24.8 ml/m2 LAV(MOD-sp2): 46.6 ml LAV(MOD-sp4): 39.2 ml Doppler Measurements AND Calculations MV E max norberto: 77.1 cm/sec Lat Peak E' Norberto: 5.2 cm/sec Med Peak E' Norberto: 4.6 cm/sec MV A max norberto: 116.5 cm/sec E/E' lat: 14.8 E/E' med: 16.6 MV E/A: 0.66 Ao V2 max: 122.8 cm/sec LV V1 max: 113.2 cm/sec PA V2 max: 107.2 cm/sec Ao max P.0 mmHg LV V1 max P.1 mmHg TR max norberto: 269.3 cm/sec TR max P.0 mmHg Interpretation Summary Normal LV size. Left ventricular systolic function is normal. The estimated ejection fracti on is 65 %. Ordering Physician: Elbert Sepulveda Referring Physician: Audrey Rodriguez Performed By: Sydney de la fuente, Leanna, RDCS, RVT 06/23/17 1203 Date Mac Smith MD CC: Elbert Sepulveda MD; Audrey Rodriguez DO Date Dictated: 06/22/17 1002 Date Transcribed: 06/23/17 1203 Barrel Bridge Assembler: Signed 03-May-2017 Carotid Duplex Ultrasound Result: Comments: See Note; NOTES: [facility] Cardiovascular Services [address] [place] [address] Carotid Duplex Ultrasound 05/03/17 1338 MR#: [id number] Acct: [id number] Name: MANISH ERICKSON Rep #: [id number] : 1935 81 From: Archie Shipman MD Attending Dr: Audrey Rodriguez DO Status: REG CLI Ordering Dr: Audrey Rodriguez DO Date: 05/03/17 Location: [facility] Sex: F C Admitted: Reason For Study: carotid stenosis Rt. Velocities/BP Lt. Velocities/BP Prox CCA 60.4/11.7 cm/sec. Prox CCA 84.4/15.8 cm/sec. Mid CCA 90.9/15.8 cm/sec. Mid CCA 89.7/18.2 cm/sec. Dist CCA 80.9/13.5 cm/sec. Dist CCA 93.2/19.9 cm/sec. Prox ICA 85.0/19.9 cm/sec. Prox ICA 86.2/17.0 cm/sec. Mid ICA 82.7/21.7 cm/sec. Mid ICA 106/28.1 cm/sec. Dist ICA 77.8/18.4 cm/sec. Dist ICA 98.5/27.6 cm/sec. Rt. ICA/CCA = .9. Lt . ICA/CCA = 1.2. Prox ECA 174 cm/sec. Prox ECA 110/8.79 cm/sec. Rt. Vert. 53.9/9.38 cm/sec. Lt. Vert. 47.5/11.1 cm/sec. Right Extracranial There is homogeneous, smooth atherosclerotic plaque noted in t he right common carotid artery. There is heterogeneous, irregular atherosclerotic plaque noted in the right internal carotid artery. There is heterogeneous, irregular atherosclerotic plaque noted in the right external carotid artery. Antegrade flow is noted in the right vertebral artery. Left Extracranial There is homogeneous, smooth atherosclerotic plaque noted in the left common carotid artery. The re is heterogeneous, irregular atherosclerotic plaque noted in the left internal carotid artery. There is heterogeneous, irregular atherosclerotic plaque noted in the left external carotid artery. Anteg rade flow is noted in the left vertebral artery. Procedure Carotid Duplex 07585. The exam was diagnostic. Exam performed in department. Interpretation Summary Mild (<50%) stenosis right extrac ranial internal carotid. Mild (<50%) stenosis left extracranial internal carotid. Flow within the vertebral arteries is antegrade bilaterally. Ordering Physician: Audrey Rodriguez Performed By: Lloyd Barclay Rayne 05/03/17 1620 Date Archie Shipman MD CC: Audrey Rodriguez DO Date Dictated: 05/03/17 1338 Date Transcribed: 05/03/17 162 Barrel Bridge Assembler: Signed 02-May-2017 Chest PA and Lateral Result: Comments: See Note; NOTES: [facility] Imaging Services [address] [place] [address] Chest PA and Lateral MR#: [id number] Acct: [id number] Name: CONCHAMANISH Rep #: [id number] : 1935 F 81 From: Arjun Weathers MD PCP: Audrey Rodriguez DO Status: REG CLI Study: Chest PA and Lateral Date of Exam: 05/02/17 Exam# [id number] Ordering Dr: Audrey Rodriguez DO STUDY: X-RAY CHEST REASON FOR EXAM: Female, 81 years old. Preoperative evaluation. TECHNIQUE: PA and lateral views of the chest. COMPARISON: None. FINDINGS: Scattered calcified gr anulomas. No acute infiltrate or mass lesion is seen. There is no demonstrated pleural abnormality. There is borderline cardiomegaly. Normal mediastinum and alfredito. Normal visualized pulmonary arteries. There is atherosclerotic calcification of the aortic arch with tortuosity. There is demineralization of the osseous structures. Normal visualized ribs, clavicles, and shoulders. There is no demonstrat ed abnormality of the visualized soft tissue structures of the upper abdomen. RAD/Chest PA and Lateral IMPRESSION: No acute abnormality is seen. Electronically Signed: Arjun Weathers MD at 15:31 EDT Tel [phone], Service support , CC: Audrey Rodriguez DO Barrel Bridge Assembler: Signed 11-Aug-2016 Bilat Scrn Digital AND CAD Result: Comments: See Note; NOTES: [facility] Imaging Services [address] [place] [address] Verdana 4d Bilat Scrn Digital AND CAD MR#: [id number] Acct: [id number] Name: MANISH KERN Rep #: [id number] : 1935 F 81 From: Arjun Weathers MD PCP: Audrey Rodriguez DO Status: REG CLI Study: Bilat Scrn Digital AND CAD Date of Exam: 08/11/16 Exam# [id number] Ordering Dr: Audrey Rodriguez DO MAMMOGRAPHY - BILATERAL SCREENING REASON FOR EXAM: Female, 81 years old. Routine annual screening examination. PERTINENT HISTORY: Non-contributory. TECHNIQUE: Digital bilateral breast jesse (3D m ammographic acquisition) in the CC and MLO projections. 2-D mediolateral oblique (MLO) and craniocaudad (CC) views of both breasts were obtained. CAD: Full Field Digital Mammography with Computer Added Detection was performed. COMPARISON: Comparison is made with prior study dated August 10, 2015 and July 28, 2014. FINDINGS: Breast Composition: There are scatt ered areas of fibroglandular density. There are no dominant masses or suspicious calcifications. No other significant abnormalities are identified. There has been no significant change since the prior study. BI/Bilat Scrn Digital AND CAD IMPRESSION: Stable bilateral screening mammogram. Yearly follow-up mammogram recommended. (A) ASSESSMENT CATEGORY: BIRADS Category 1: Negative. A letter regarding these results will be sent to the patient by the facility within 30 days. Approximately 10% of breast can cers are not detected by mammography. A normal mammogram should not delay biopsy of a clinically suspicious abnormality. [id number] Electronically Signed: Arjun Weathers MD at 13:43 EST Te l [phone], Service support [phone], CC: Audrey Rodriguez DO Barrel Bridge Assembler: Signed 14-Jun-2016 Carotid Duplex Ultrasound Result: Comments: See Note; NOTES: [facility] Cardiovascular Services [address] [place] [address] Carotid Duplex Ultrasound 06/08/16 1257 MR#: [id number] Acct: [id number] Name: MANISH HADLEY Rep #: [id number] : 1935 80 From: Max Bustillos MD Attending Dr: Audrey Rodriguez DO Status: REG CLI Ordering Dr: Audrey Rodriguez DO Date: 06/08/16 Location: [facility] Sex: F C Admitted: Reas on For Study: Carotid stenosis Rt. Velocities/BP Lt. Velocities/BP Prox CCA 85.0/12.3 cm/sec. Prox CCA 75.6/10.6 cm/sec. Mid CCA 77.4/15.8 cm/sec. Mid CCA 87.9/18.8 cm/sec. Dist CCA 76.8/14.7 cm/sec. D ist CCA 70.9/16.4 cm/sec. Prox ICA 85.0/18.2 cm/sec. Prox ICA 74.5/14.7 cm/sec. Mid ICA 112.0/29.1 cm/sec. Mid ICA 92.6/23.5 cm/sec. Dist ICA 87.4/20.4 cm/sec. Dist ICA 119.0/34.8 cm/sec. Rt. ICA/CCA = 1.5. Lt. ICA/CCA = 1.4. Prox ECA 179.0/13.8 cm/sec. Prox ECA 93.3/6.3 cm/sec. Rt. Vert. 44.0/7.5 cm/sec. Lt. Vert. 42.4/10.2 cm/sec. Right Extracranial There is no significant atherosclerotic plaque no leanne in the right common carotid artery. There is heterogeneous, irregular atherosclerotic plaque noted in the right internal carotid artery. There is heterogeneous, irregular atherosclerotic plaque note d in the right external carotid artery. Antegrade flow is noted in the right vertebral artery. Left Extracranial There is intimal thickening but no significant atherosclerotic plaque noted in the left common carotid artery. There is heterogeneous, irregular atherosclerotic plaque noted in the left internal carotid artery. There is heterogeneous, irregular atherosclerotic plaque noted in the left exte rnal carotid artery. Antegrade flow is noted in the left vertebral artery. Interpretation Summary Mild (<50%) stenosis right extracranial internal carotid. Mild (<50%) stenosis left ext racranial internal carotid. Flow within the vertebral arteries is antegrade bilaterally. Ordering Physician: Audrey Rodriguez Performed By: Taisha Vasquez RVT 06/14/16 1220 Date Sherwin Bustillos MD CC: Audrey Rodriguez DO Date Dictated: 06/08/16 1257 Date Transcribed: 06/14/16 1220 Barrel Bridge Assembler: Signed 05-Apr-2016 Knee 4 or More Views Result: Comments: See Note; NOTES: [facility] Imaging Services [address] [place] [address] Verdana 4d Knee 4 or More Views MR#: [id number] Acct: [id number] Name: MANISH KERN Rep #: [id number] : 1935 F 80 From: Arjun Weathers MD PCP: Audrey Rodriguez DO Status: REG CLI Study: Knee 4 or More Views Date of Exam: 04/05/16 Exam# [id number] Ordering Dr: Hayley Rodriguez DO STUDY: X-RAY - LEFT KNEE REASON FOR EXAM: Female, 80 years old. Knee pain. No history of trauma. TECHNIQUE: 4 view(s) of the knee. COMPARISON: None. _ FINDINGS: Normal visualized distal femur. Normal visualized proximal tibia and fibula. Normal proximal tibiofibular articulation. There is severe degenerative arthrosis of the medial femorotibia l compartment with severe joint space narrowing. Normal lateral femorotibial compartment. There is mild degenerative arthrosis of the patellofemoral articulation. There is evidence of chondrocalcinos is. Small joint effusion. IMPRESSION: Degenerative arthrosis. Chondrocalcinosis. Small joint effusion. Electronically Signed: Arjun Weathers MD 04/05 at 10:47 EDT Tel [phone], Service support [phone], RAD/Knee 4 or More Views IMPRESSION: Degenerative arthrosis. Chondrocalcinosis. Small joint effusion. Electronically Signed: Arjun Weathers MD at 10:47 EDT Tel [phone], Service support [phone], CC: Audrey Rodriguez DO Barrel Bridge Assembler: Signed 28-Dec-2015 Dexa Bone Density Study () Result: Comments: See Note; NOTES: [facility] Imaging Services [address] [place] [address] Verda 4d Dexa Bone Density Study () MR#: [id number] Acct: [id number] Name : MANISH KERN Rep #: [id number] : 1935 F 80 From: Arjun Weathers MD PCP: Audrey Rodriguez DO Status: REG CLI Study: Dexa Bone Density Study () Date of Exam: 12/28/15 Exam# [id number] Marina velazquez Dr: Audrey Rodriguez DO STUDY: DUAL ENERGY X-RAY ABSORPTIOMETRY / DXA REASON FOR EXAM: Female, 80 years old. The patient is postmenopausal. Loss of height. TECHNIQUE: Bone Mineral Density (BMD) measurements of lumbar spine and bilateral hips were obtained. COMPARISON: Comparison is made with prior examination dated October 12, 2011. FINDINGS: Lumba r Spine (L1-L4): g/cm2 (0.982) / T-score (-1.6) / Z-score (0.2) Findings are suggestive of osteopenia with a moderate fracture risk. Left Femur Total: g/cm2 (0.699) / T-score (-2.4) / Z-score (-0.5) Left Femoral Neck: g/cm2 (0.577) / T-score (-3.3) / Z-score (-1.2) Right Femur Total: g/cm2 (0.771) / T-score (-1.9) / Z-score (0.0) Right Femoral Neck: g/cm2 (0.694) / T-score (-2.5) / Z-score (-0.4 ) The T-Scores on the most recent prior examination were: Lumbar Spine (L1- L4): There has been improvement of bone density since the previous examination. Left Femur Total: which represents a wor sening of 4.1%. Right Femur Total: which represents a worsening of 3.1%. IMPRESSION: The patient is considered osteoporotic at the level of femoral neck as outl ined below according to World Gavino Organization (WHO) criteria with a high fracture risk. There has been worsening of bone density since the previous examination. _ Reference Information: The T-score is the number of standard deviations above or below the standard which is normal for young adults at their peak bone mineral density. The World Health Organizat ion (WHO) interprets the T-scores as follows: Above -1 Normal bone density Between -1 and -2.5 Osteopenia Equal to / or below -2.5 Osteoporosis As a practical clinical guideline, osteopenia may b e graded as follows: Mild -1 through -1.5 Moderate -1.6 through -2.0 Severe -2.1 through -2.4 The Z-score is the number of standard deviations above or below age-matched controls. A Z-score of les s than -1.5 would be considered abnormal. References: 1. NIH Osteoporosis and Related Bone Diseases http://www.osteo.org 2. International Society for Clinical Densitometry http://www.iscd.org 3. [employer] [facility] Osteoporosis Foundation http://www.nof.org Electronically Signed: Arjun Weathers MD at 12:54 EDT Tel [phone], Service support [phone], CC: Syl Rodriguez DO Barrel Bridge Assembler: Signed 12-Nov-2015 ELECTROCARDIOGRAM, COMPLETE (ECG) (13481) Comments: ekg showed normal sinus rhythym, normal axis, no acute st/t wave changes lvh no change Result: [MEASUREMENTS ANALYSIS] Date of Test: 11/12/2015 10:43:53; Heart Rate: 54; PA Interval: 174; QRS: 98; QT Interval: 448; Corrected QT Interval (QTc): 438; P Wave Holden: 36; QRS Wave Holden: -21; T Wave Holden : 18; Blood Pressure: 168/84 [ECG DIAGNOSTIC STATEMENTS] Date of Test: 11/12/2015 10:43:53; Summary: Sinus Bradycardia Voltage criteria for LVH (R(I)+S(III) exceeds 2.50 mV) -Voltage criteria w/o ST/ T abnormality may be normal. -Poor R-wave progression -nonspecific -consider old anterior infarct. BORDERLINE 11-Aug-2015 Carotid Duplex Ultrasound Result: Comments: See Note; NOTES: [facility] Cardiovascular Services [address] [place] [address] Carotid Duplex Ultrasound 08/05/15 0957 MR#: [id number] Acct: [id number] Name: MANISH KERN Rep #: [id number] : 1935 80 From: Max Bustillos MD Attending Dr: Audrey Rodriguez DO Status: REG CLI Ordering Dr: Audrey Rodriguez DO Date: 08/05/15 Location: [facility] Sex: F C Ad mitted: Rt. Velocities/BP Lt. Velocities/BP Prox CCA 84/14 cm/sec. Prox CCA 88/14 cm/sec. Mid CCA 73/16 cm/sec. Mid CCA 86/19 cm/sec. Dist CCA 76/15 cm/sec. Dist CCA 76/18 cm/sec. Prox ICA 58/1 6 cm/sec. Prox ICA 81/20 cm/sec. Mid ICA 100/27 cm/sec. Mid ICA 90/30 cm/sec. Dist ICA 61/16 cm/sec. Dist ICA 111/35 cm/sec. Rt. ICA/CCA = 1.4. Lt. ICA/CCA = 1.3. Prox ECA 204/20 cm/sec. Prox ECA 10 0/8 cm/sec. Rt. Vert. 35/6 cm/sec. Lt. Vert. 41/11 cm/sec. Right Extracranial There is intimal thickening but no significant atherosclerotic plaque noted in the right common carotid artery. There is heterogeneous, irregular atherosclerotic plaque noted in the right internal carotid artery. There is heterogeneous, irregular atherosclerotic plaque noted in the right external carotid artery. An tegrade flow is noted in the right vertebral artery. There is heterogeneous, irregular atherosclerotic plaque noted in the left bulb. Left Extracranial There is intimal thickening but no significant atherosclerotic plaque noted in the left common carotid artery. There is heterogeneous, irregular atherosclerotic plaque noted in the left internal carotid artery. There is heterogeneous, irregular atherosclerotic plaque noted in the left external carotid artery. Antegrade flow is noted in the left vertebral artery. There is heterogeneous, irregular atherosclerotic plaque noted in the left bulb . Procedure Carotid Duplex 21589. Exam performed in department. Interpretation Summary Mild (<50%) stenosis right extracranial internal carotid. Mild (<50%) stenosis left extracra nial internal carotid. Flow within the vertebral arteries is antegrade bilaterally. Ordering P hysician: Audrey Rodriguez Performed By: Isabel Kern RDCS 08/11/15802 Date B tim Bustillos MD CC: Audrey Rodriguez DO Date Dictated: 08/05/15 0957 Date Transcribed: 08/11/15802 Barrel Bridge Assembler: Signed 10-Aug-2015 Bilat Scrn Digital AND CAD Result: Comments: See Note; NOTES: [facility] Imaging Services [address] [place] [address] Verdana 4d Bilat Scrn Digital AND CAD MR#: [id number] Acct: [id number] Name: MANISH KERN Rep #: [id number] : 1935 F 80 From: Arjun Weathers MD PCP: Audrey Rodriguez DO Status: REG CLI Study: Bilat Scrn Digital AND CAD Date of Exam: 08/10/15 Exam# [id number] Ordering Dr: Audrey Rodriguez DO MAMMOGRAPHY - BILATERAL SCREENING REASON FOR EXAM: Female, 80 years old. Routine annual screening examination. PERTINENT HISTORY: Non- contributory. TECHNIQUE: Digital exam ination. Mediolateral oblique (MLO) and craniocaudad (CC) views of both breasts were obtained. CAD: CAD was performed on this study. COMPARISON: Comparison is made with prior study dated July 28, 2014 and May 19, 2013. FINDINGS: Breast Composition: There are scattered areas of fibroglandular density. There are no dominant masses or suspicious calcif ications. No other significant abnormalities are identified. There has been no significant change since the prior study. IMPRESSION: Stable bilateral screening mammogram. Yearly follow-up recommended. (A) ASSESSMENT CATEGORY: BIRADS Category 1: Negative. A letter regarding these results will be sent to the patient by the facility within 30 days. Approximately 10% of breast cancers are not detected by mammography. A normal mammogram should not delay biopsy of a clinically suspicious abnormality. Electronically Signed: Arjun Weathers MD at 13:35 EST Tel [phone], Service support [phone], CC: Audrey Rodriguez DO Barrel Bridge Assembler: Signed 28-Jul-2014 Bilat Scrn Digital & CAD Result: Comments: See Note; NOTES: [facility] Imaging Services [address] [place] [address] Breast Imaging Report MR#: [id number] Acct: [id number] Name: MANISH KERN Rep #: [id number] : 1935 F 79 From: Arjun Weathers MD PCP: Audrey Rodriguez DO Status: REG CLI Exam# [id number] Ordering Dr: Audrey Rodriguez DO MAMMOGRAPHY - BILATERAL SCREENING REASON FOR EXAM: Fem dago, 79 years old. Routine annual screening examination. PERTINENT HISTORY: Non-contributory. TECHNIQUE: Digital examination. Mediolateral oblique (MLO) and craniocaudad (CC) views of both breasts were obtained. CAD: CAD was performed on this study. COMPARISON: Comparison is made with prior study dated May 19, 2013 and March 08, 2012. FINDINGS: Breas t Composition: There are scattered areas of fibroglandular density. There are no dominant masses or suspicious calcifications. No other significant abnormalities are identified. There has been no s ignificant change since the prior study. IMPRESSION: Stable bilateral screening mammogram. Yearly follow-up recommended. (A) ASSESSMENT CATEGORY: BIRADS Category 2: Benign finding(s). A letter regarding these results will be sent to the patient by the facility within 30 days. Approximately 10% of breast cancers are not detected by mammography. A normal mammogram should not delay biopsy of a clinically suspicious abnormality. Electronically Signed: Arjun Weathers MD at 10:23 EST Tel [phone], S ervice support [phone], CC: Audrey Rodriguez DO Barrel Bridge Assembler: Signed 16-Jul-2014 Echocardiogram Complete Result: Comments: See Note; NOTES: [facility] Cardiovascular Services [address] [place] [address] Echo Complete 07/15/14 1204 MR#: [id number] Acct: [id number] Name: DO YUVAL KERN Rep #: [id number] : 1935 79 From: Jhon Parker MD Attending Dr: Audrey Rodriguez DO Status: REG CLI Ordering Dr: Audrey Rodriguez DO Date: 07/15/14 Location: [facility] Sex: F C [facility] was a 2D Doppler, Color Flow transthoracic echocardiogram. The exam was diagnostic. Exam performed in department. Left Ventricle Normal size and thickness. The estimated ejection fraction is 65 %. Stage 1 diastolic dysfunction. No regional wall motion abnormalities noted. Right Ventricle Normal size and thickness. Normal systolic function. Atria Normal left atrium. Normal right a trium. Normal atrial septum. Mitral Valve The mitral valve is structurally normal. No prolapse or stenosis seen. Trivial mitral valve insufficiency. Tricuspid Valve Normal tricuspid valve. Trivi al tricuspid valve insufficiency. Right ventricular systolic pressure estimated to be 10 mmHg. Aortic Valve Trisinus/trileaflet aortic valve. Pulmonic Valve Normal pulmonic valve. Great Vessel s Normal aortic root. Normal arch. Normal inferior vena cava. Inferior vena cava collapse with sniff. Pericardium/Pleural No pericardial effusion. LVIDd: 4.8 cm IVSd: 1.0 cm Ao root diam: 2.5 cm LAV(MOD-bp): 38.9 ml LVIDs: 3.0 cm LVPWd: 1.3 cm Ao root area: 4.8 cm2 LAV(MOD- bp) Indexed: 22.4 ml/m2 RVDd: 3.4 cm FS: 36.6 % LA dimension: 3.6 cm LAV(MOD- sp2): 32.1 ml LAV(MOD-sp4): 43.6 ml __ LA A4 area: 15.9 cm2 RA A4 area: 12.0 cm2 MV E max norberto: Lat Peak E' Norberto: Med Peak E' Norberto: Ao V2 max: 88.8 cm/sec 7. 5 cm/sec 6.2 cm/sec 95.8 cm/sec MV A max norberto: Ao max P.7 mmHg 97.6 cm/sec MV E/A: 0.91 LV V1 max: 102.0 cm/s ec PA V2 max: 91.1 cm/sec TR max norberto: 111.5 cm/sec E /E' lat: 11.9 LV V1 max P.2 mmHg PA max P.3 mmHg TR max P.0 mmHg E/E' med: 14.3 Interpretation Summary The estimated ejection fraction is 65 %. Stage 1 diastolic dysfunction. Right ventricular systolic pressure estimated to be 10 mmHg. There is n o comparison study available. Ordering Physician: Audrey Rodriguez Performed By: LORETO Jones 07/16/141208 Date Jhon Parker MD CC: Audrey Rodriguez DO Date Dictated: 06/25 Date Transcribed: 07/16/141208 Barrel Bridge Assembler: Signed 06-Jul-2014 Carotid Duplex Ultrasound Result: Comments: See Note; NOTES: [facility] Cardiovascular Services [address] [place] [address] 06/26/14 0932 MR#: [id number] Acct: [id number] Name: MANSIH KERN Rep #: [id number] : 1935 78 From: Archie Shipman MD Attending Dr: Dre Flowers MD Status: REG CLI Ordering Dr: Date: 07/06/14 Location: [facility] Sex: F C Admitted: Rt. Velocities/BP Lt. Velocities/B P Prox CCA 61.6/6.5 cm/sec. Prox CCA 75.5/ 13.4 cm/sec. Mid CCA 65.7/11.1 cm/sec. Mid CCA 81.7/16.5 cm/sec. Dist CCA 65.7/15.2 cm/sec. Dist CCA 80.9/ 21.2 cm/sec. Prox ICA 67.6/20.4 cm/sec. Prox ICA 70.8/ 17.2 cm/sec. Mid ICA 105/24.9 cm/sec. Mid ICA 72.7/11.5 cm/sec. Dist ICA 81.9/20.2 cm/sec. Dist ICA 85.6/ 20.4 cm/sec. Rt. ICA/CCA = 1.5. Lt. ICA/CCA = 0.8. Prox ECA 200/29.5 cm/sec. Prox EC A 106/20.8 cm/sec. Rt. Vert. 58.1/11 cm/sec. Lt. Vert. 50.3/ 13.4 cm/sec. Right Extracranial There is homogeneous, smooth atherosclerotic plaque noted in the right common carotid artery. There is intimal thickening but no significant atherosclerotic plaque noted in the right internal carotid artery. There is intimal thickening but no significant atherosclerotic plaque noted in the right exte rnal carotid artery. Antegrade flow is noted in the right vertebral artery. There is heterogeneous, irregular atherosclerotic plaque noted in the right bulb. Left Extracranial There is homogeneous, smooth atherosclerotic plaque noted in the left common carotid artery. There is intimal thickening but no significant atherosclerotic plaque noted in the left internal carotid artery. There is intim al thickening but no significant atherosclerotic plaque noted in the left external carotid artery. Antegrade flow is noted in the left vertebral artery. There is heterogeneous, irregular atheroscler otic plaque noted in the left bulb. Procedure Carotid Duplex [id number]. The exam was diagnostic. Exam performed in department. Interpretation Summary Mild (<50%) stenosis right extracranial in ternal carotid. Mild (<50%) stenosis left extracranial internal carotid. Flow within the vertebral arteries is antegrade bilaterally. Elevated velocities within the right external carotid ar dolores are suggestive of stenosis. Ordering Physician: Dre Flowers M.D. Performed By: LORETO Jones 06/28/142152 Date Archie Shipman MD CC: Audrey Rodriguez DO Date Dictate d: 06/26/14931 Date Transcribed: 06/28/142152 Barrel Bridge Assembler: Signed 29-Dec-2013 Abdomen/Pelvis without Cont Result: Comments: See Note; NOTES: [facility] Imaging Services [address] [address] CAT Scan Report MR#: [id number] Acct: [id number] Name: CONCHAMAN[place] Rep #: [id number] : 1935 F 78 From: Medhat Leach MD PCP: Audrey Rodriguez DO Status: REG CLI Study: Abdomen/Pelvis without Cont Date of Exam: 12/29/13 Exam# [id number] Ordering Dr: Sabina Damon DO GELA DY: CT ABDOMEN AND PELVIS WITHOUT CONTRAST REASON FOR EXAM: Female, 78 years old. Hematuria and chronic urinary tract infections. RADIATION DOSAGE (If Supplied By Facility): CTDIvol = ( 12.58 ) mGy , DLP = ( 624.62 ) mGycm TECHNIQUE: Transaxial images were obtained from the dome of the diaphragm to the symphysis pubis without oral contrast, and without intravenous contrast. Sagittal and coron al images were reconstructed. COMPARISON: Prior CT scan performed with intravenous contrast on 08/26/09 FINDINGS: The visualized lung bases are unremarkable. Th ere is moderate cardiomegaly. Normal liver. Normal gallbladder and extrahepatic biliary system. Normal spleen. Normal pancreas. Normal bilateral adrenal glands. Normal right kidney. Normal left kidney. There are no right or left renal or ureteral calculi, and there are no masses, hydronephrosis or perinephric stranding. Normal visualized stomach. Normal small intestine. Normal colon. The appendix is normal and is visualized on sagittal images 30-36. There is diffuse atherosclerotic calcification of the abdominal aorta with elongation and tortuosity, but without a demonstrated aneurys m. There are similar changes in the iliac vessels, femoral vessels and splenic artery. Normal inferior vena cava. Normal retroperitoneum. Normal urinary bladder. Multiple pelvic phleboliths. Carly l abdominal wall. There is a stable curvature of the lumbar spine, convex left with degenerative changes. There are stable degenerative changes of the sacroiliac joints and hips. IMPRESSION: 1. No acute abdominal or pelvic process and no appreciable interval change. 2. There are no renal or ureteral calculi. 3. Bladder is unremarkable. Electronically Sign ed: Medhat Leach MD at 13:28 EDT Tel , Service support [phone], CC: Audrey Rodriguez DO; Sabina Damon DO Barrel Bridge Assembler: Signed 14-Oct-2013 Dexa Bone Density Study (HP) Result: Comments: See Note; NOTES: [facility] Imaging Services [address] [place] [address] Bone Density Report MR#: [id number] Acct: [id number] Name: MANISH KERN Rep #: [id number] : 1935 F 78 From: Arjun Weathers MD PCP: Audrey Rodriguez DO Status: REG CLI Study: Dexa Bone Density Study (HP) Date of Exam: 10/14/13 Exam# [id number] Ordering Dr: Audrey Rodriguez DO STUDY: DUAL ENERGY X-RAY ABSORPTIOMETRY / DXA REASON FOR EXAM: Female, 78 years old. Osteoporosis. TECHNIQUE: Bone Mineral Density (BMD) measurements of lumbar spine and bilateral hips were obtain ed. COMPARISON: Comparison is made with prior examination dated October 12, 2011. FINDINGS: Lumbar Spine (L1-L4): g/cm2 (0.856) / T-score (-2.6) / Z-score (-0 .8) Findings are suggestive of osteoporosis with a moderate fracture risk. Left Femur Total: g/cm2 (0.729) / T-score (-2.2) / Z-score (-0.4) Left Femoral Neck: g/cm2 (0.569) / T-score (-3.4) / Z-sco re (-1.4) Right Femur Total: g/cm2 (0.796) / T-score (-1.7) / Z-score (0.1) Right Femoral Neck: g/cm2 (0.650) / T-score (-2.8) / Z-score (-0.8) The T- Scores on the most recent prior examination were : Lumbar Spine (L1-L4): There has been worsening of bone density since the previous examination. Left Femur Total: which represents a worsening of 1.2%. Right Femur Total: which represents a worse cameron of 5.1%. IMPRESSION: The patient is considered osteoporotic as outlined below according to World Gavino Organization (WHO) criteria with a high fracture risk . There has been worsening of bone density since the previous examination. Reference Information: The T-score is the number of standard deviations above or belo w the standard which is normal for young adults at their peak bone mineral density. The World Health Organization (WHO) interprets the T-scores as follows: Above -1 Normal bone density Between -1 and -2.5 Osteopenia Equal to / or below -2.5 Osteoporosis As a practical clinical guideline, osteopenia may be graded as follows: Mild -1 through -1.5 Moderate -1.6 through -2.0 Severe -2.1 throug h -2.4 The Z-score is the number of standard deviations above or below age-matched controls. A Z-score of less than -1.5 would be considered abnormal. References: 1. NIH Osteoporosis and Related B one Diseases http://www.osteo.org 2. International Society for Clinical Densitometry http://www.iscd.org 3. National Osteoporosis Foundation http://www.nof.org Electronically Signed: Arjun bowman M.D. at 15:58 EST , Service support [phone], CC: Audrey Rodriguez DO Barrel Bridge Assembler: Signed Immunization Name Dates Details Influenza (3 years and up) on: 10-Jul-2008 Comments: 0.5cc given im lt loyd [place] Family History Unknown Family Member Name Dates Details Daughter 1 Comments: age 42 colon cancer Status: Active Daughter 2 Comments: dupytrens contracture Status: Active Father Comments: , CHF for unknown reasons Status: Active Mother Comments: , [place], peritonitis, DM Status: Active Sister 1 Comments: , [place]- age 52 Status: Active Sister 2 Comments: HTN, Osteoporosis, heart problems Status: Active Son 1 Comments: pvd and aneurysm of iliac artery Status: Active Social History Name Dates Details Caffeine Use Status: Active Non Drinker/No Alcohol Use Status: Active Non Smoker/No Tobacco Use Comments: 05/17/11 Status: Active Tobacco use: Never smoker. Comments: 12/12/11 Status: Active Smoking Status Name Dates Details Never smoker Vital Signs Date Test Result Details :01 Temperature 97.7 f Comments: Method: Temporal Pulse 68 /min Comments: Pattern: Regular Respiration Rate 16 /min Comments: Pattern: Unlabored BP Systolic 142 mm[Hg] Comments: Patient Position: Sitting; Cuff Location: Left Arm; Cuff Size: Standard BP Diastolic 68 mm[Hg] Comments: Patient Position: Sitting; Cuff Location: Left Arm; Cuff Size: Standard Weight 164 lb Height 62 in Body Mass Index Calculated 30 kg/m2 Body Surface Area Calculated 1.76 m2 :56 Temperature 97.8 f Comments: Method: Temporal Pulse 60 /min Comments: Pattern: Regular Respiration Rate 16 /min Comments: Pattern: Unlabored BP Systolic 132 mm[Hg] Comments: Patient Position: Sitting; Cuff Location: Left Arm; Cuff Size: Standard BP Diastolic 62 mm[Hg] Comments: Patient Position: Sitting; Cuff Location: Left Arm; Cuff Size: Standard Weight 160 lb Height 62 in Body Mass Index Calculated 29.26 kg/m2 Body Surface Area Calculated 1.74 m2 :55 Temperature 98 f Comments: Method: Oral Pulse 61 /min Comments: Pattern: Regular Respiration Rate 18 /min Comments: Pattern: Unlabored O2 SAT 97 % Comments: Room air BP Systolic 134 mm[Hg] Comments: Patient Position: Sitting; Cuff Location: Left Arm; Cuff Size: Standard BP Diastolic 62 mm[Hg] Comments: Patient Position: Sitting; Cuff Location: Left Arm; Cuff Size: Standard Weight 158 lb Height 62 in Body Mass Index Calculated 28.9 kg/m2 Body Surface Area Calculated 1.73 m2 :48 Temperature 97.5 f Pulse 66 /min Comments: Pattern: Regular Respiration Rate 18 /min Comments: Pattern: Unlabored O2 SAT 97 % Comments: Room air BP Systolic 128 mm[Hg] Comments: Patient Position: Sitting; Cuff Location: Left Arm; Cuff Size: Standard BP Diastolic 62 mm[Hg] Comments: Patient Position: Sitting; Cuff Location: Left Arm; Cuff Size: Standard Weight 156 lb Height 62 in Body Mass Index Calculated 28.53 kg/m2 Body Surface Area Calculated 1.72 m2 :35 Temperature 97.2 f Comments: Method: Temporal Pulse 68 /min Comments: Pattern: Regular Respiration Rate 16 /min Comments: Pattern: Unlabored O2 SAT 98 % Comments: Room air BP Systolic 152 mm[Hg] Comments: Patient Position: Sitting; Cuff Location: Left Arm; Cuff Size: Standard BP Diastolic 82 mm[Hg] Comments: Patient Position: Sitting; Cuff Location: Left Arm; Cuff Size: Standard Weight 156 lb Height 62 in Body Mass Index Calculated 28.53 kg/m2 Body Surface Area Calculated 1.72 m2 :48 Temperature 98.2 f Comments: Method: Temporal Pulse 70 /min Comments: Pattern: Regular Respiration Rate 16 /min Comments: Pattern: Unlabored BP Systolic 132 mm[Hg] Comments: Patient Position: Sitting; Cuff Location: Left Arm; Cuff Size: Standard BP Diastolic 62 mm[Hg] Comments: Patient Position: Sitting; Cuff Location: Left Arm; Cuff Size: Standard Weight 162 lb Height 62 in Body Mass Index Calculated 29.63 kg/m2 Body Surface Area Calculated 1.75 m2 :30 Temperature 97.1 f Comments: Method: Temporal Pulse 63 /min Comments: Pattern: Regular Respiration Rate 16 /min Comments: Pattern: Unlabored BP Systolic 142 mm[Hg] Comments: Patient Position: Sitting; Cuff Location: Left Arm; Cuff Size: Standard BP Diastolic 70 mm[Hg] Comments: Patient Position: Sitting; Cuff Location: Left Arm; Cuff Size: Standard Weight 163 lb Height 62 in Body Mass Index Calculated 29.81 kg/m2 Body Surface Area Calculated 1.75 m2 :34 Temperature 97.5 f Comments: Method: Temporal Pulse 62 /min Comments: Pattern: Regular Respiration Rate 16 /min Comments: Pattern: Unlabored O2 SAT 98 % Comments: Room air BP Systolic 148 mm[Hg] Comments: Patient Position: Sitting; Cuff Location: Left Arm; Cuff Size: Standard BP Diastolic 74 mm[Hg] Comments: Patient Position: Sitting; Cuff Location: Left Arm; Cuff Size: Standard Weight 162 lb Height 62 in Body Mass Index Calculated 29.63 kg/m2 Body Surface Area Calculated 1.75 m2 :03 Temperature 97.2 f Comments: Method: Temporal Pulse 63 /min Comments: Pattern: Regular Respiration Rate 16 /min Comments: Pattern: Unlabored BP Systolic 146 mm[Hg] Comments: Patient Position: Sitting; Cuff Location: Left Arm; Cuff Size: Standard BP Diastolic 70 mm[Hg] Comments: Patient Position: Sitting; Cuff Location: Left Arm; Cuff Size: Standard Weight 160 lb Height 62 in Body Mass Index Calculated 29.26 kg/m2 Body Surface Area Calculated 1.74 m2 :12 Temperature 97.6 f Comments: Method: Temporal Pulse 68 /min Comments: Pattern: Regular Respiration Rate 16 /min Comments: Pattern: Unlabored O2 SAT 98 % Comments: Room air BP Systolic 144 mm[Hg] Comments: Patient Position: Sitting; Cuff Location: Left Arm; Cuff Size: Standard BP Diastolic 80 mm[Hg] Comments: Patient Position: Sitting; Cuff Location: Left Arm; Cuff Size: Standard Weight 161 lb Height 62 in Body Mass Index Calculated 29.45 kg/m2 Body Surface Area Calculated 1.74 m2 :43 Temperature 97.8 f Comments: Method: Temporal Pulse 62 /min Comments: Pattern: Regular Respiration Rate 15 /min Comments: Pattern: Unlabored O2 SAT 97 % Comments: Room air BP Systolic 126 mm[Hg] Comments: Patient Position: Sitting; Cuff Location: Left Arm; Cuff Size: Standard BP Diastolic 64 mm[Hg] Comments: Patient Position: Sitting; Cuff Location: Left Arm; Cuff Size: Standard Weight 161 lb Height 62 in Body Mass Index Calculated 29.45 kg/m2 Body Surface Area Calculated 1.74 m2 :38 Temperature 97.3 f Comments: Method: Temporal Pulse 60 /min Comments: Pattern: Regular Respiration Rate 15 /min Comments: Pattern: Unlabored O2 SAT 99 % Comments: Room air BP Systolic 124 mm[Hg] Comments: Patient Position: Sitting; Cuff Location: Left Arm; Cuff Size: Standard BP Diastolic 70 mm[Hg] Comments: Patient Position: Sitting; Cuff Location: Left Arm; Cuff Size: Standard Weight 161 lb Height 62 in Body Mass Index Calculated 29.45 kg/m2 Body Surface Area Calculated 1.74 m2 :30 Temperature 97.6 f Comments: Method: Temporal Pulse 66 /min Comments: Pattern: Regular Respiration Rate 16 /min Comments: Pattern: Unlabored BP Systolic 142 mm[Hg] Comments: Patient Position: Sitting; Cuff Location: Left Arm; Cuff Size: Standard BP Diastolic 80 mm[Hg] Comments: Patient Position: Sitting; Cuff Location: Left Arm; Cuff Size: Standard Weight 160 lb Height 62 in Body Mass Index Calculated 29.26 kg/m2 Body Surface Area Calculated 1.74 m2 :17 Temperature 97.2 f Comments: Method: Temporal Pulse 73 /min Comments: Pattern: Regular Respiration Rate 16 /min Comments: Pattern: Unlabored O2 SAT 98 % Comments: Room air BP Systolic 134 mm[Hg] Comments: Patient Position: Sitting; Cuff Location: Left Arm; Cuff Size: Standard BP Diastolic 78 mm[Hg] Comments: Patient Position: Sitting; Cuff Location: Left Arm; Cuff Size: Standard Weight 160 lb Height 62 in Body Mass Index Calculated 29.26 kg/m2 Body Surface Area Calculated 1.74 m2 :54 Temperature 98 f Comments: Method: Temporal Pulse 60 /min Comments: Pattern: Regular Respiration Rate 16 /min Comments: Pattern: Unlabored O2 SAT 98 % Comments: Room air BP Systolic 124 mm[Hg] Comments: Patient Position: Sitting; Cuff Location: Left Arm; Cuff Size: Standard BP Diastolic 78 mm[Hg] Comments: Patient Position: Sitting; Cuff Location: Left Arm; Cuff Size: Standard Weight 161 lb Height 62 in Body Mass Index Calculated 29.45 kg/m2 Body Surface Area Calculated 1.74 m2 :41 Temperature 97 f Comments: Method: Oral Pulse 66 /min Comments: Pattern: Regular Respiration Rate 18 /min Comments: Pattern: Unlabored O2 SAT 98 % Comments: Room air BP Systolic 120 mm[Hg] Comments: Patient Position: Sitting; Cuff Location: Left Arm; Cuff Size: Standard BP Diastolic 62 mm[Hg] Comments: Patient Position: Sitting; Cuff Location: Left Arm; Cuff Size: Standard Weight 164 lb Height 62 in Body Mass Index Calculated 30 kg/m2 Body Surface Area Calculated 1.76 m2 :54 Temperature 98.4 f Pulse 64 /min Comments: Pattern: Regular Respiration Rate 16 /min Comments: Pattern: Unlabored BP Systolic 148 mm[Hg] Comments: Patient Position: Sitting; Cuff Location: Left Arm; Cuff Size: Standard BP Diastolic 88 mm[Hg] Comments: Patient Position: Sitting; Cuff Location: Left Arm; Cuff Size: Standard Weight 162 lb Height 62 in Body Mass Index Calculated 29.63 kg/m2 Body Surface Area Calculated 1.75 m2 :24 Temperature 98.4 f Pulse 68 /min Comments: Pattern: Regular Respiration Rate 16 /min Comments: Pattern: Unlabored BP Systolic 132 mm[Hg] Comments: Patient Position: Sitting; Cuff Location: Left Arm; Cuff Size: Standard BP Diastolic 84 mm[Hg] Comments: Patient Position: Sitting; Cuff Location: Left Arm; Cuff Size: Standard Weight 162 lb Height 62 in Body Mass Index Calculated 29.63 kg/m2 Body Surface Area Calculated 1.75 m2 :08 Temperature 97.2 f Pulse 54 /min Comments: Pattern: Regular Respiration Rate 16 /min Comments: Pattern: Unlabored BP Systolic 116 mm[Hg] Comments: Patient Position: Sitting; Cuff Location: Left Arm; Cuff Size: Large BP Diastolic 74 mm[Hg] Comments: Patient Position: Sitting; Cuff Location: Left Arm; Cuff Size: Large Weight 161 lb Height 62 in Body Mass Index Calculated 29.45 kg/m2 Body Surface Area Calculated 1.74 m2 :43 Temperature 96.7 f Comments: Method: Temporal Pulse 60 /min Comments: Pattern: Regular Respiration Rate 16 /min Comments: Pattern: Unlabored O2 SAT 97 % Comments: Room air BP Systolic 138 mm[Hg] Comments: Patient Position: Sitting; Cuff Location: Left Arm; Cuff Size: Standard BP Diastolic 78 mm[Hg] Comments: Patient Position: Sitting; Cuff Location: Left Arm; Cuff Size: Standard Weight 166 lb Height 62 in Body Mass Index Calculated 30.36 kg/m2 Body Surface Area Calculated 1.77 m2 :03 Pulse 58 /min Comments: Pattern: Regular Respiration Rate 18 /min Comments: Pattern: Unlabored O2 SAT 98 % Comments: Room air BP Systolic 142 mm[Hg] Comments: Patient Position: Sitting; Cuff Location: Left Arm; Cuff Size: Large BP Diastolic 80 mm[Hg] Comments: Patient Position: Sitting; Cuff Location: Left Arm; Cuff Size: Large Weight 165 lb Height 62 in Body Mass Index Calculated 30.18 kg/m2 Body Surface Area Calculated 1.76 m2 :55 Temperature 97.1 f Comments: Method: Oral Pulse 62 /min Comments: Pattern: Regular Respiration Rate 18 /min Comments: Pattern: Unlabored O2 SAT 98 % Comments: Room air BP Systolic 142 mm[Hg] Comments: Patient Position: Sitting; Cuff Location: Left Arm; Cuff Size: Standard BP Diastolic 82 mm[Hg] Comments: Patient Position: Sitting; Cuff Location: Left Arm; Cuff Size: Standard Weight 165 lb Height 62 in Body Mass Index Calculated 30.18 kg/m2 Body Surface Area Calculated 1.76 m2 :01 Temperature 97.9 f Comments: Method: Oral Pulse 50 /min Comments: Pattern: Regular Respiration Rate 18 /min Comments: Pattern: Unlabored O2 SAT 97 % Comments: Room air BP Systolic 138 mm[Hg] Comments: Patient Position: Sitting; Cuff Location: Left Arm; Cuff Size: Standard BP Diastolic 82 mm[Hg] Comments: Patient Position: Sitting; Cuff Location: Left Arm; Cuff Size: Standard Weight 165 lb Height 62 in Body Mass Index Calculated 30.18 kg/m2 Body Surface Area Calculated 1.76 m2 :50 Temperature 96.5 f Pulse 62 /min Comments: Pattern: Regular Respiration Rate 18 /min Comments: Pattern: Unlabored BP Systolic 128 mm[Hg] Comments: Patient Position: Sitting; Cuff Location: Left Arm; Cuff Size: Large BP Diastolic 80 mm[Hg] Comments: Patient Position: Sitting; Cuff Location: Left Arm; Cuff Size: Large Weight 165 lb Height 62 in Body Mass Index Calculated 30.18 kg/m2 Body Surface Area Calculated 1.76 m2 :43 Temperature 97 f Pulse 52 /min Comments: Pattern: Regular Respiration Rate 16 /min Comments: Pattern: Unlabored BP Systolic 120 mm[Hg] Comments: Patient Position: Sitting; Cuff Location: Left Arm; Cuff Size: Large BP Diastolic 76 mm[Hg] Comments: Patient Position: Sitting; Cuff Location: Left Arm; Cuff Size: Large Weight 158 lb Height 62 in Body Mass Index Calculated 28.9 kg/m2 Body Surface Area Calculated 1.73 m2 :40 Temperature 98.7 f Pulse 60 /min Comments: Pattern: Regular Respiration Rate 18 /min Comments: Pattern: Unlabored BP Systolic 126 mm[Hg] Comments: Patient Position: Sitting; Cuff Location: Left Arm; Cuff Size: Large BP Diastolic 78 mm[Hg] Comments: Patient Position: Sitting; Cuff Location: Left Arm; Cuff Size: Large Weight 157 lb Height 62 in Body Mass Index Calculated 28.72 kg/m2 Body Surface Area Calculated 1.72 m2 :40 Temperature 98.2 f Comments: Method: Oral Pulse 64 /min Comments: Pattern: Regular Respiration Rate 20 /min Comments: Pattern: Unlabored BP Systolic 120 mm[Hg] Comments: Patient Position: Sitting; Cuff Location: Left Arm; Cuff Size: Large BP Diastolic 70 mm[Hg] Comments: Patient Position: Sitting; Cuff Location: Left Arm; Cuff Size: Large Weight 164 lb Height 62 in Body Mass Index Calculated 30 kg/m2 Body Surface Area Calculated 1.76 m2 :36 Temperature 96.4 f Pulse 62 /min Comments: Pattern: Regular Respiration Rate 16 /min Comments: Pattern: Unlabored BP Systolic 134 mm[Hg] Comments: Patient Position: Sitting; Cuff Location: Left Arm; Cuff Size: Large BP Diastolic 82 mm[Hg] Comments: Patient Position: Sitting; Cuff Location: Left Arm; Cuff Size: Large Weight 164 lb Height 62 in Body Mass Index Calculated 30 kg/m2 Body Surface Area Calculated 1.76 m2 :26 Temperature 97.1 f Pulse 64 /min Comments: Pattern: Regular Respiration Rate 16 /min Comments: Pattern: Unlabored BP Systolic 142 mm[Hg] Comments: Patient Position: Sitting; Cuff Location: Left Arm; Cuff Size: Large BP Diastolic 68 mm[Hg] Comments: Patient Position: Sitting; Cuff Location: Left Arm; Cuff Size: Large Weight 166 lb Height 62 in Body Mass Index Calculated 30.36 kg/m2 Body Surface Area Calculated 1.77 m2 :18 Temperature 96.5 f Pulse 48 /min Comments: Pattern: Regular Respiration Rate 16 /min Comments: Pattern: Unlabored BP Systolic 136 mm[Hg] Comments: Patient Position: Sitting; Cuff Location: Left Arm; Cuff Size: Large BP Diastolic 72 mm[Hg] Comments: Patient Position: Sitting; Cuff Location: Left Arm; Cuff Size: Large Weight 166 lb Height 62 in Body Mass Index Calculated 30.36 kg/m2 Body Surface Area Calculated 1.77 m2 :53 Temperature 98.1 f Weight 167 lb Height 62 in Body Mass Index Calculated 30.54 kg/m2 Body Surface Area Calculated 1.77 m2 :47 Temperature 97 f Pulse 52 /min Comments: Pattern: Regular Respiration Rate 16 /min Comments: Pattern: Unlabored BP Systolic 140 mm[Hg] Comments: Patient Position: Sitting; Cuff Location: Left Arm; Cuff Size: Large BP Diastolic 66 mm[Hg] Comments: Patient Position: Sitting; Cuff Location: Left Arm; Cuff Size: Large Weight 167 lb Height 62 in Body Mass Index Calculated 30.54 kg/m2 Body Surface Area Calculated 1.77 m2 :12 Temperature 96.9 f Pulse 56 /min Comments: Pattern: Regular Respiration Rate 16 /min Comments: Pattern: Unlabored BP Systolic 150 mm[Hg] Comments: Patient Position: Sitting; Cuff Location: Left Arm; Cuff Size: Large BP Diastolic 78 mm[Hg] Comments: Patient Position: Sitting; Cuff Location: Left Arm; Cuff Size: Large Weight 165 lb Height 62 in Body Mass Index Calculated 30.18 kg/m2 Body Surface Area Calculated 1.76 m2 :03 Temperature 97.3 f Comments: Method: Oral Pulse 60 /min Comments: Pattern: Regular Respiration Rate 18 /min Comments: Pattern: Unlabored BP Systolic 100 mm[Hg] Comments: Patient Position: Sitting; Cuff Location: Left Arm; Cuff Size: Large BP Diastolic 62 mm[Hg] Comments: Patient Position: Sitting; Cuff Location: Left Arm; Cuff Size: Large Weight 160 lb Height 62 in Body Mass Index Calculated 29.26 kg/m2 Body Surface Area Calculated 1.74 m2 :53 Temperature 98 f Comments: Method: Oral Pulse 56 /min Comments: Pattern: Regular Respiration Rate 15 /min Comments: Pattern: Unlabored O2 SAT 98 % Comments: Room air BP Systolic 110 mm[Hg] Comments: Patient Position: Sitting; Cuff Location: Left Arm; Cuff Size: Standard BP Diastolic 62 mm[Hg] Comments: Patient Position: Sitting; Cuff Location: Left Arm; Cuff Size: Standard Weight 156 lb Height 62 in Body Mass Index Calculated 28.53 kg/m2 Body Surface Area Calculated 1.72 m2 :11 Temperature 96 f Pulse 56 /min Comments: Pattern: Regular Respiration Rate 16 /min Comments: Pattern: Unlabored BP Systolic 144 mm[Hg] Comments: Patient Position: Sitting; Cuff Location: Left Arm; Cuff Size: Large BP Diastolic 84 mm[Hg] Comments: Patient Position: Sitting; Cuff Location: Left Arm; Cuff Size: Large Weight 156 lb Height 62 in Body Mass Index Calculated 28.53 kg/m2 Body Surface Area Calculated 1.72 m2 :48 Temperature 98.4 f Comments: Method: Oral Pulse 60 /min Comments: Pattern: Regular Respiration Rate 16 /min Comments: Pattern: Unlabored BP Systolic 128 mm[Hg] Comments: Patient Position: Supine; Cuff Location: Left Arm; Cuff Size: Standard BP Diastolic 60 mm[Hg] Comments: Patient Position: Supine; Cuff Location: Left Arm; Cuff Size: Standard Weight 161 lb Height 62 in Body Mass Index Calculated 29.45 kg/m2 Body Surface Area Calculated 1.74 m2 :15 Temperature 97.4 f Pulse 68 /min Comments: Pattern: Regular Respiration Rate 14 /min Comments: Pattern: Unlabored BP Systolic 114 mm[Hg] Comments: Patient Position: Sitting; Cuff Location: Left Arm; Cuff Size: Large BP Diastolic 78 mm[Hg] Comments: Patient Position: Sitting; Cuff Location: Left Arm; Cuff Size: Large Weight 161 lb Height 62 in Body Mass Index Calculated 29.45 kg/m2 Body Surface Area Calculated 1.74 m2 :55 Temperature 96.7 f Pulse 60 /min Comments: Pattern: Regular Respiration Rate 16 /min Comments: Pattern: Unlabored BP Systolic 138 mm[Hg] Comments: Patient Position: Sitting; Cuff Location: Left Arm; Cuff Size: Large BP Diastolic 82 mm[Hg] Comments: Patient Position: Sitting; Cuff Location: Left Arm; Cuff Size: Large :29 Temperature 96.5 f Comments: Method: Oral Pulse 60 /min Comments: Pattern: Regular Respiration Rate 18 /min Comments: Pattern: Unlabored Weight 163 lb :13 Temperature 97 f Pulse 52 /min Comments: Pattern: Regular Respiration Rate 18 /min Comments: Pattern: Unlabored BP Systolic 142 mm[Hg] Comments: Patient Position: Sitting; Cuff Location: Left Arm; Cuff Size: Standard BP Diastolic 82 mm[Hg] Comments: Patient Position: Sitting; Cuff Location: Left Arm; Cuff Size: Standard Weight 163 lb :04 Temperature 96.7 f Pulse 56 /min Comments: Pattern: Regular Respiration Rate 18 /min Comments: Pattern: Unlabored BP Systolic 118 mm[Hg] Comments: Patient Position: Sitting; Cuff Location: Left Arm; Cuff Size: Large BP Diastolic 56 mm[Hg] Comments: Patient Position: Sitting; Cuff Location: Left Arm; Cuff Size: Large Weight 155 lb :58 Pulse 60 /min Comments: Pattern: Regular Respiration Rate 20 /min Comments: Pattern: Unlabored BP Systolic 122 mm[Hg] Comments: Patient Position: Sitting; Cuff Location: Left Arm; Cuff Size: Standard BP Diastolic 82 mm[Hg] Comments: Patient Position: Sitting; Cuff Location: Left Arm; Cuff Size: Standard Weight 158.1875 lb Height 62.25 in Body Mass Index Calculated 28.7 kg/m2 Body Surface Area Calculated 1.74 m2 :54 Temperature 96.4 f Pulse 56 /min Comments: Pattern: Regular Respiration Rate 18 /min Comments: Pattern: Unlabored BP Systolic 132 mm[Hg] Comments: Patient Position: Sitting; Cuff Location: Left Arm; Cuff Size: Standard BP Diastolic 72 mm[Hg] Comments: Patient Position: Sitting; Cuff Location: Left Arm; Cuff Size: Standard Weight 158 lb :27 Temperature 96.9 f Pulse 48 /min Comments: Pattern: Regular Respiration Rate 16 /min Comments: Pattern: Unlabored BP Systolic 124 mm[Hg] Comments: Patient Position: Sitting; Cuff Location: Left Arm; Cuff Size: Standard BP Diastolic 82 mm[Hg] Comments: Patient Position: Sitting; Cuff Location: Left Arm; Cuff Size: Standard Weight 162 lb :29 Temperature 97.3 f Comments: Method: Undefined Pulse 56 /min Comments: Pattern: Regular Respiration Rate 18 /min Comments: Pattern: Undefined BP Systolic 152 mm[Hg] Comments: Patient Position: Sitting; Cuff Location: Left Arm; Cuff Size: Large BP Diastolic 72 mm[Hg] Comments: Patient Position: Sitting; Cuff Location: Left Arm; Cuff Size: Large Weight 159 lb Height 62.25 in Body Mass Index Calculated 28.85 kg/m2 Body Surface Area Calculated 1.74 m2 Head Circumference 0.00 cm :30 Temperature 96.8 f Comments: Method: Undefined Pulse 68 /min Comments: Pattern: Regular Respiration Rate 18 /min Comments: Pattern: Undefined BP Systolic 146 mm[Hg] Comments: Patient Position: Sitting; Cuff Location: Right Arm; Cuff Size: Standard BP Diastolic 72 mm[Hg] Comments: Patient Position: Sitting; Cuff Location: Right Arm; Cuff Size: Standard Weight 158 lb Height 0 in Head Circumference 0.00 cm :01 BP Systolic 140 mm[Hg] Comments: Patient Position: Sitting; Cuff Location: Undefined; Cuff Size: Undefined BP Diastolic 74 mm[Hg] Comments: Patient Position: Sitting; Cuff Location: Undefined; Cuff Size: Undefined Weight 0 lb Height 0 in Head Circumference 0.00 cm :36 Temperature 97.1 f Comments: Method: Undefined Pulse 56 /min Comments: Pattern: Regular Respiration Rate 18 /min Comments: Pattern: Undefined BP Systolic 150 mm[Hg] Comments: Patient Position: Sitting; Cuff Location: Right Arm; Cuff Size: Standard BP Diastolic 74 mm[Hg] Comments: Patient Position: Sitting; Cuff Location: Right Arm; Cuff Size: Standard Weight 159 lb Height 0 in Head Circumference 0.00 cm :32 Temperature 97.3 f Comments: Method: Undefined Pulse 66 /min Comments: Pattern: Regular Respiration Rate 16 /min Comments: Pattern: Undefined BP Systolic 138 mm[Hg] Comments: Patient Position: Sitting; Cuff Location: Right Arm; Cuff Size: Standard BP Diastolic 60 mm[Hg] Comments: Patient Position: Sitting; Cuff Location: Right Arm; Cuff Size: Standard Weight 161 lb Height 62.25 in Body Mass Index Calculated 29.21 kg/m2 Body Surface Area Calculated 1.75 m2 Head Circumference 0.00 cm :03 Temperature 95.8 f Comments: Method: Undefined Pulse 56 /min Comments: Pattern: Regular Respiration Rate 16 /min Comments: Pattern: Undefined BP Systolic 142 mm[Hg] Comments: Patient Position: Sitting; Cuff Location: Left Arm; Cuff Size: Large BP Diastolic 82 mm[Hg] Comments: Patient Position: Sitting; Cuff Location: Left Arm; Cuff Size: Large Weight 156 lb Height 0 in Head Circumference 0.00 cm :02 Pulse 48 /min Comments: Pattern: Regular Respiration Rate 16 /min Comments: Pattern: Unlabored BP Systolic 112 mm[Hg] Comments: Patient Position: Sitting; Cuff Location: Left Arm; Cuff Size: Standard BP Diastolic 66 mm[Hg] Comments: Patient Position: Sitting; Cuff Location: Left Arm; Cuff Size: Standard Weight 155 lb Height 0 in Head Circumference 0.00 cm :00 Temperature 97 f Comments: Method: Undefined Pulse 52 /min Comments: Pattern: Regular Respiration Rate 16 /min Comments: Pattern: Undefined BP Systolic 144 mm[Hg] Comments: Patient Position: Sitting; Cuff Location: Right Arm; Cuff Size: Standard BP Diastolic 80 mm[Hg] Comments: Patient Position: Sitting; Cuff Location: Right Arm; Cuff Size: Standard Weight 155 lb Height 0 in Head Circumference 0.00 cm :41 Temperature 97.8 f Comments: Method: Undefined Pulse 64 /min Comments: Pattern: Regular Respiration Rate 16 /min Comments: Pattern: Undefined BP Systolic 120 mm[Hg] Comments: Patient Position: Sitting; Cuff Location: Right Arm; Cuff Size: Standard BP Diastolic 60 mm[Hg] Comments: Patient Position: Sitting; Cuff Location: Right Arm; Cuff Size: Standard Weight 156 lb Height 0 in Head Circumference 0.00 cm :59 Temperature 97.8 f Comments: Method: Undefined Pulse 52 /min Comments: Pattern: Regular Respiration Rate 16 /min Comments: Pattern: Undefined BP Systolic 158 mm[Hg] Comments: Patient Position: Sitting; Cuff Location: Left Arm; Cuff Size: Large BP Diastolic 78 mm[Hg] Comments: Patient Position: Sitting; Cuff Location: Left Arm; Cuff Size: Large Weight 0 lb Height 0 in Head Circumference 0.00 cm :59 Temperature 98.6 f Comments: Method: Oral Pulse 72 /min Comments: Pattern: Regular Respiration Rate 20 /min Comments: Pattern: Unlabored BP Systolic 122 mm[Hg] Comments: Patient Position: Sitting; Cuff Location: Left Arm; Cuff Size: Large BP Diastolic 80 mm[Hg] Comments: Patient Position: Sitting; Cuff Location: Left Arm; Cuff Size: Large Weight 153 lb Height 0 in Head Circumference 0.00 cm :28 Temperature 98 f Comments: Method: Oral Pulse 60 /min Comments: Pattern: Regular Respiration Rate 18 /min Comments: Pattern: Unlabored BP Systolic 102 mm[Hg] Comments: Patient Position: Sitting; Cuff Location: Right Arm; Cuff Size: Standard BP Diastolic 70 mm[Hg] Comments: Patient Position: Sitting; Cuff Location: Right Arm; Cuff Size: Standard Weight 0 lb Height 0 in Head Circumference 0.00 cm :15 Temperature 97.7 f Comments: Method: Oral Pulse 64 /min Comments: Pattern: Regular Respiration Rate 16 /min Comments: Pattern: Unlabored BP Systolic 110 mm[Hg] Comments: Patient Position: Sitting; Cuff Location: Left Arm; Cuff Size: Standard BP Diastolic 64 mm[Hg] Comments: Patient Position: Sitting; Cuff Location: Left Arm; Cuff Size: Standard Weight 0 lb Height 0 in Head Circumference 0.00 cm :37 Temperature 97.6 f Comments: Method: Oral Pulse 52 /min Comments: Pattern: Regular Respiration Rate 16 /min Comments: Pattern: Unlabored BP Systolic 120 mm[Hg] Comments: Patient Position: Sitting; Cuff Location: Right Arm; Cuff Size: Standard BP Diastolic 60 mm[Hg] Comments: Patient Position: Sitting; Cuff Location: Right Arm; Cuff Size: Standard Weight 153 lb Height 0 in Head Circumference 0.00 cm :33 Temperature 98.3 f Comments: Method: Oral Pulse 72 /min Comments: Pattern: Regular Respiration Rate 16 /min Comments: Pattern: Unlabored O2 SAT 95 % Comments: Room air BP Systolic 108 mm[Hg] Comments: Patient Position: Sitting; Cuff Location: Left Arm; Cuff Size: Standard BP Diastolic 76 mm[Hg] Comments: Patient Position: Sitting; Cuff Location: Left Arm; Cuff Size: Standard Weight 0 lb Height 0 in Head Circumference 0.00 cm :34 Temperature 98.5 f Comments: Method: Oral Pulse 64 /min Comments: Pattern: Regular Respiration Rate 16 /min Comments: Pattern: Unlabored BP Systolic 138 mm[Hg] Comments: Patient Position: Sitting; Cuff Location: Right Arm; Cuff Size: Standard BP Diastolic 70 mm[Hg] Comments: Patient Position: Sitting; Cuff Location: Right Arm; Cuff Size: Standard Weight 162 lb Height 0 in Head Circumference 0.00 cm :31 Temperature 97.7 f Comments: Method: Oral Pulse 62 /min Comments: Pattern: Regular Respiration Rate 20 /min Comments: Pattern: Unlabored BP Systolic 142 mm[Hg] Comments: Patient Position: Sitting; Cuff Location: Left Arm; Cuff Size: Standard BP Diastolic 76 mm[Hg] Comments: Patient Position: Sitting; Cuff Location: Left Arm; Cuff Size: Standard Weight 161 lb Height 0 in Head Circumference 0.00 cm :32 Temperature 97.7 f Comments: Method: Oral Pulse 60 /min Comments: Pattern: Regular Respiration Rate 16 /min Comments: Pattern: Unlabored BP Systolic 120 mm[Hg] Comments: Patient Position: Standing; Cuff Location: Right Arm; Cuff Size: Standard BP Diastolic 60 mm[Hg] Comments: Patient Position: Standing; Cuff Location: Right Arm; Cuff Size: Standard Weight 160.375 lb Height 0 in Head Circumference 0.00 cm [id number] Temperature 97.5 f Comments: Method: Oral Pulse 64 /min Comments: Pattern: Regular Respiration Rate 16 /min Comments: Pattern: Unlabored BP Systolic 166 mm[Hg] Comments: Patient Position: Sitting; Cuff Location: Left Arm; Cuff Size: Standard BP Diastolic 68 mm[Hg] Comments: Patient Position: Sitting; Cuff Location: Left Arm; Cuff Size: Standard Weight 157 lb Height 62 in Body Mass Index Calculated 28.72 kg/m2 Body Surface Area Calculated 1.72 m2 Head Circumference 0.00 cm Results Date Description Value Details :32 CREATININE FINGERSTICK Comments: [facility] [place] [address] [place], [place] [id number] EGFR WB > 60.0000 mL/min (Normal) CREATININE WB 0.7 mg/dL (Normal) Range: 0.55-1.02 [id number]:21 CBC with auto diff ([id number]) Comments: PATIENT WAS FASTINGPERFORMED BY: [facility] [id number] [facility] [id number] Immature Grans (Abs) 0.0 {x10E3/uL} (Normal) Range: 0.0-0.1 Immature Granulocytes 0 % (Normal) Baso (Absolute) 0.0 {x10E3/uL} (Normal) Range: 0.0-0.2 Eos (Absolute) 0.3 {x10E3/uL} (Normal) Range: 0.0-0.4 Monocytes(Absolute) 0.5 {x10E3/uL} (Normal) Range: 0.1-0.9 Lymphs (Absolute) 1.9 {x10E3/uL} (Normal) Range: 0.7-3.1 Neutrophils (Absolute) 3.2 {x10E3/uL} (Normal) Range: 1.4-7.0 Basos 1 % (Normal) Eos 4 % (Normal) Monocytes 8 % (Normal) Lymphs 32 % (Normal) Neutrophils 55 % (Normal) Platelets 187 {x10E3/uL} (Normal) Range: 150-379 RDW 13.9 % (Normal) Range: 12.3-15.4 MCHC 33.7 g/dL (Normal) Range: 31.5-35.7 MCH 31.5 pg (Normal) Range: 26.6-33.0 MCV 93 fL (Normal) Range: 79-97 Hematocrit 41.2 % (Normal) Range: 34.0-46.6 Hemoglobin 13.9 g/dL (Normal) Range: 11.1-15.9 RBC 4.41 {x10E6/uL} (Normal) Range: 3.77-5.28 WBC 5.9 {x10E3/uL} (Normal) Range: 3.4-10.8 0-Teh-[id number]:21 LIPID PANEL ([id number]) Comments: PATIENT WAS FASTINGPERFORMED BY: [facility] [id number] [facility] [id number] LDL/HDL Ratio 2.3 {ratio} (Normal) Range: 0.0-3.2 Comments: LDL/HDL Ratio Men Women 1/2 Avg.Risk 1.0 1.5 Av g.Risk 3.6 3.2 2X Avg.Risk 6.2 5.0 3X Avg.Risk 8.0 6.1 LDL Cholesterol Calc 94 mg/dL (Normal) Range: 0-99 VLDL Cholesterol Alexander 30 mg/dL (Normal) Range: 5-40 HDL Cholesterol 41 mg/dL (Normal) Triglycerides 149 mg/dL (Normal) Range: 0-149 Cholesterol, Total 165 mg/dL (Normal) Range: 100-199 2-Eqk-160793:21 MICROALBUMIN: CREATININE RATIO Comments: PATIENT WAS FASTINGPERFORMED BY: [email or web address] [id number] [facility] [id number] ([id number]) AND (79205) Alb/Creat Ratio 6.6 {mg/g_creat} (Normal) Range: 0.0-30.0 Comments: Normal: 0.0 - 30.0 Albuminuria: 31.0 - 300.0 Clinical albuminuria: >300.0 Albumin, Urine 3.9 ug/mL (Normal) Creatinine, Urine 58.9 mg/dL (Normal) [id number]:21 METABOLIC PANEL, COMPREHENSIVE Comments: PATIENT WAS FASTINGPERFORMED BY: KAILA Venyo [id number] [facility] [id number]; appt 09/30 (48889) ALT (SGPT) 19 [iU]/L (Normal) Range: 0-32 AST (SGOT) 14 [iU]/L (Normal) Range: 0-40 Alkaline Phosphatase 96 [iU]/L (Normal) Range: 39-117 Bilirubin, Total 0.6 mg/dL (Normal) Range: 0.0-1.2 A/G Ratio 1.6 (Normal) Range: 1.2-2.2 Globulin, Total 2.5 g/dL (Normal) Range: 1.5-4.5 Albumin 4.0 g/dL (Normal) Range: 3.5-4.7 Protein, Total 6.5 g/dL (Normal) Range: 6.0-8.5 Calcium 9.1 mg/dL (Normal) Range: 8.7-10.3 Carbon Dioxide, Total 25 mmol/L (Normal) Range: 20-29 Chloride 106 mmol/L (Normal) Range: 96-106 Potassium 4.2 mmol/L (Normal) Range: 3.5-5.2 Sodium 145 mmol/L (Abnormal) Range: 134-144 BUN/Creatinine Ratio 21 (Normal) Range: 12-28 eGFR If Africn Am 78 mL/min/1.73 (Normal) eGFR If NonAfricn Am 67 mL/min/1.73 (Normal) Creatinine 0.82 mg/dL (Normal) Range: 0.57-1.00 BUN 17 mg/dL (Normal) Range: 8-27 Glucose 104 mg/dL (Abnormal) Range: 65-99 3-Kam-[id number]:21 HGB A1C (59651) Comments: PATIENT WAS FASTINGPERFORMED BY: Venyo [id number] [facility] [id number] Hemoglobin A1c 5.6 % (Normal) Range: 4.8-5.6 Comments: . Prediabetes: 5.7 - 6.4 Diabetes: >6.4 Glycemic control for adults with diabetes: <7.0 77-Zpe-67784:29 Hemoglobin A1c 5.5 % (Normal) Comments: PATIENT WAS FASTINGPERFORMED BY: [employer] [facility] [id number] Range: 4.8-5.6 Comments: . Prediabetes: 5.7 - 6.4 Diabetes: >6.4 Glycemic control for adults with diabetes: <7.0 :29 VITAMIN B-12 (CYANOCOBALAMIN) Comments: PATIENT WAS FASTINGPERFORMED BY: [facility] [id number] [address] RoadDublin [place] [id number] (06075) Vitamin B12 583 pg/mL (Normal) Range: 232-1245 :29 Vitamin D Hydroxy (16470) Comments: PATIENT WAS FASTINGPERFORMED BY: [facility] [id number] [address] [facility] HospitalD[facility] [place] [id number] Vitamin D, 25-Hydroxy 54.1 ng/mL (Normal) Range: 30.0-100.0 Comments: Vitamin D deficiency has been defined by the [place] [facility] and an Endocrine Society practice guideline as alevel of serum 25-OH vitamin D less than 20 ng/mL (1,2).The Endocrine Society went on to further define vitamin Dinsufficiency as a level between 21 and 29 ng/mL (2).1. IOM ([place] of Medicine). 2010. Dietary reference intakes for calcium and D. [place]: The National Academies Press.2. Freddy MF, Pineda [place], Brody KHOURY, et al. Evaluation, treatment, and prevention of vitamin D deficiency: an Endocrine Society clinical practice guideline. JCEM. 2010; 96(7):1911-30. :29 LIPID PANEL (13970) Comments: PATIENT WAS FASTINGPERFORMED BY: [facility] [id number] [address] [facility] HospitalDublin [place] [id number] LDL/HDL Ratio 2.4 {ratio} (Normal) Range: 0.0-3.2 Comments: LDL/HDL Ratio Men Women 1/2 Avg.Risk 1.0 1.5 Av g.Risk 3.6 3.2 2X Avg.Risk 6.2 5.0 3X Avg.Risk 8.0 6.1 LDL Cholesterol Calc 94 mg/dL (Normal) Range: 0-99 VLDL Cholesterol Alexander 28 mg/dL (Normal) Range: 5-40 HDL Cholesterol 40 mg/dL (Normal) Triglycerides 140 mg/dL (Normal) Range: 0-149 Cholesterol, Total 162 mg/dL (Normal) Range: 100-199 94-Pkv-81008:29 METABOLIC PANEL, COMPREHENSIVE Comments: PATIENT WAS FASTINGPERFORMED BY: [facility] HospitalMdmbke6103 [facility] [id number]; will discuss at aura 06/24 (50192) ALT (SGPT) 13 [iU]/L (Normal) Range: 0-32 AST (SGOT) 17 [iU]/L (Normal) Range: 0-40 Alkaline Phosphatase 83 [iU]/L (Normal) Range: 39-117 Bilirubin, Total 0.6 mg/dL (Normal) Range: 0.0-1.2 A/G Ratio 1.7 (Normal) Range: 1.2-2.2 Globulin, Total 2.4 g/dL (Normal) Range: 1.5-4.5 Albumin 4.1 g/dL (Normal) Range: 3.5-4.7 Protein, Total 6.5 g/dL (Normal) Range: 6.0-8.5 Calcium 9.0 mg/dL (Normal) Range: 8.7-10.3 Carbon Dioxide, Total 25 mmol/L (Normal) Range: 20-29 Chloride 104 mmol/L (Normal) Range: 96-106 Potassium 4.3 mmol/L (Normal) Range: 3.5-5.2 Sodium 143 mmol/L (Normal) Range: 134-144 BUN/Creatinine Ratio 18 (Normal) Range: 12-28 eGFR If Africn Am 90 mL/min/1.73 (Normal) eGFR If NonAfricn Am 78 mL/min/1.73 (Normal) Creatinine 0.73 mg/dL (Normal) Range: 0.57-1.00 BUN 13 mg/dL (Normal) Range: 8-27 Glucose 97 mg/dL (Normal) Range: 65-99 77-Uel-924111:03 Microscopic Examination Comments: PATIENT WAS FASTINGPERFORMED BY: [facility] HospitalFeoprv7607 [facility] [id number] Bacteria Few (Normal) Epithelial Cells (non renal) 0-10 {/hpf} (Normal) Range: 0 - 10 RBC None seen {/hpf} (Normal) Range: 0 - 2 WBC 0-5 {/hpf} (Normal) Range: 0 - 5 :03 URINALYSIS, W/ MICRO (10456) Comments: PATIENT WAS FASTINGPERFORMED BY: VenyoUniversity HospitalWuludm8207 [facility] [id number] Microscopic Examination See below: (Normal) Comments: Microscopic was indicated and was performed. Nitrite, Urine Negative (Normal) Urobilinogen,Semi-Qn 0.2 mg/dL (Normal) Range: 0.2-1.0 Bilirubin Negative (Normal) Occult Blood Negative (Normal) Ketones Negative (Normal) Glucose Negative (Normal) Protein Negative (Normal) WBC Esterase Trace (Abnormal) Appearance Clear (Normal) Urine-Color Yellow (Normal) pH 7.5 (Normal) Range: 5.0-7.5 Specific Brandon 1.010 (Normal) Range: 1.005-1.030 33-Sio-561308:03 MICROALBUMIN: CREATININE RATIO Comments: PATIENT WAS FASTINGPERFORMED BY: [facility]yoUniversity HospitalCjmtqt2691 [facility] [id number] ([id number]) AND (74134) Alb/Creat Ratio <8.4 {mg/g_creat} (Normal) Range: 0.0-30.0 Albumin, Urine <3.0 ug/mL (Normal) Creatinine, Urine 35.9 mg/dL (Normal) :03 CBC W/AUTO DIFF WBC (33281) Comments: PATIENT WAS FASTINGPERFORMED BY: [facility]yoUniversity HospitalMyadoz4517 [facility] [id number] Immature Grans (Abs) 0.0 {x10E3/uL} (Normal) Range: 0.0-0.1 Immature Granulocytes 0 % (Normal) Baso (Absolute) 0.0 {x10E3/uL} (Normal) Range: 0.0-0.2 Eos (Absolute) 0.1 {x10E3/uL} (Normal) Range: 0.0-0.4 Monocytes(Absolute) 0.4 {x10E3/uL} (Normal) Range: 0.1-0.9 Lymphs (Absolute) 1.8 {x10E3/uL} (Normal) Range: 0.7-3.1 Neutrophils (Absolute) 3.1 {x10E3/uL} (Normal) Range: 1.4-7.0 Basos 1 % (Normal) Eos 2 % (Normal) Monocytes 8 % (Normal) Lymphs 33 % (Normal) Neutrophils 56 % (Normal) Platelets 190 {x10E3/uL} (Normal) Range: 150-379 RDW 14.8 % (Normal) Range: 12.3-15.4 MCHC 32.9 g/dL (Normal) Range: 31.5-35.7 MCH 30.6 pg (Normal) Range: 26.6-33.0 MCV 93 fL (Normal) Range: 79-97 Hematocrit 40.1 % (Normal) Range: 34.0-46.6 Hemoglobin 13.2 g/dL (Normal) Range: 11.1-15.9 RBC 4.32 {x10E6/uL} (Normal) Range: 3.77-5.28 WBC 5.4 {x10E3/uL} (Normal) Range: 3.4-10.8 59-Rvq-944514:03 METABOLIC PANEL, COMPREHENSIVE Comments: PATIENT WAS FASTINGPERFORMED BY: [facility]CoUniversity HospitalXmsyne3454 [facility] [id number]; review on 03/13 (31452) ALT (SGPT) 13 [iU]/L (Normal) Range: 0-32 AST (SGOT) 15 [iU]/L (Normal) Range: 0-40 Alkaline Phosphatase 81 [iU]/L (Normal) Range: 39-117 Bilirubin, Total 0.5 mg/dL (Normal) Range: 0.0-1.2 A/G Ratio 1.7 (Normal) Range: 1.2-2.2 Globulin, Total 2.3 g/dL (Normal) Range: 1.5-4.5 Albumin 4.0 g/dL (Normal) Range: 3.5-4.7 Protein, Total 6.3 g/dL (Normal) Range: 6.0-8.5 Calcium 9.0 mg/dL (Normal) Range: 8.7-10.3 Carbon Dioxide, Total 22 mmol/L (Normal) Range: 20-29 Comments: Please note reference interval change Chloride 105 mmol/L (Normal) Range: 96-106 Potassium 4.4 mmol/L (Normal) Range: 3.5-5.2 Sodium 143 mmol/L (Normal) Range: 134-144 BUN/Creatinine Ratio 23 (Normal) Range: 12-28 eGFR If Africn Am 83 mL/min/1.73 (Normal) eGFR If NonAfricn Am 72 mL/min/1.73 (Normal) Creatinine 0.78 mg/dL (Normal) Range: 0.57-1.00 BUN 18 mg/dL (Normal) Range: 8-27 Glucose 104 mg/dL (Abnormal) Range: 65-99 24-Fhn-201050:03 LIPID PANEL (78277) Comments: PATIENT WAS FASTINGPERFORMED BY: PLASTIQ LabComcast6370 [facility] [id number] LDL/HDL Ratio 2.5 {ratio} (Normal) Range: 0.0-3.2 Comments: LDL/HDL Ratio Men Women 1/2 Avg.Risk 1.0 1.5 Av g.Risk 3.6 3.2 2X Avg.Risk 6.2 5.0 3X Avg.Risk 8.0 6.1 LDL Cholesterol Calc 112 mg/dL (Abnormal) Range: 0-99 VLDL Cholesterol Alexander 22 mg/dL (Normal) Range: 5-40 HDL Cholesterol 44 mg/dL (Normal) Triglycerides 108 mg/dL (Normal) Range: 0-149 Cholesterol, Total 178 mg/dL (Normal) Range: 100-199 97-Xqg-322387:03 VITAMIN B-12 (CYANOCOBALAMIN) Comments: PATIENT WAS FASTINGPERFORMED BY: LabCo Vmgaug1015 [facility] [id number] (75632) Vitamin B12 453 pg/mL (Normal) Range: 232-1245 91-Ryh-186586:06 Vitamin D Hydroxy (05005) Comments: PATIENT WAS FASTINGPERFORMED BY: PLASTIQ [facility] Lzjppt2121 [facility] [id number] Vitamin D, 25-Hydroxy 69.0 ng/mL (Normal) Range: 30.0-100.0 Comments: Vitamin D deficiency has been defined by the [place] and an Endocrine Society practice guideline as alevel of serum 25-OH vitamin D less than 20 ng/mL (1,2).The Endocrine Society went on to further define vitamin Dinsufficiency as a level between 21 and 29 ng/mL (2).1. IOM ([place] [employer]). 2010. Dietary reference intakes for calcium and D. [place]: The National Academies Press.2. Freddy MF, Pineda EUBANKS, Brody KHOURY, et al. Evaluation, treatment, and prevention of vitamin D deficiency: an Endocrine Society clinical practice guideline. JCEM. 2010; 96(7):1911-30. 28-Sco-955696:06 VITAMIN B-12 (CYANOCOBALAMIN) Comments: PATIENT WAS FASTINGPERFORMED BY: Gen110 [place] [id number] (38336) Vitamin B12 519 pg/mL (Normal) Range: 232-1245 52-Hea-234320:06 LIPID PANEL (88665) Comments: PATIENT WAS FASTINGPERFORMED BY: WhistlestopMaria [facility] [id number] LDL/HDL Ratio 2.5 {ratio_units} (Normal) Range: 0.0-3.2 Comments: LDL/HDL Ratio Men Women 1/2 Avg.Risk 1.0 1.5 Av g.Risk 3.6 3.2 2X Avg.Risk 6.2 5.0 3X Avg.Risk 8.0 6.1 LDL Cholesterol Calc 100 mg/dL (Abnormal) Range: 0-99 VLDL Cholesterol Alexander 25 mg/dL (Normal) Range: 5-40 HDL Cholesterol 40 mg/dL (Normal) Triglycerides 127 mg/dL (Normal) Range: 0-149 Cholesterol, Total 165 mg/dL (Normal) Range: 100-199 97-Yvz-529190:06 METABOLIC PANEL, COMPREHENSIVE Comments: PATIENT WAS FASTINGPERFORMED BY: Rooster Teeth70 Excel EnergyMaria [facility] [id number]; review at 11/13 appt (78690) ALT (SGPT) 12 [iU]/L (Normal) Range: 0-32 AST (SGOT) 15 [iU]/L (Normal) Range: 0-40 Alkaline Phosphatase, S 74 [iU]/L (Normal) Range: 39-117 Bilirubin, Total 0.7 mg/dL (Normal) Range: 0.0-1.2 A/G Ratio 2.0 (Normal) Range: 1.2-2.2 Globulin, Total 2.2 g/dL (Normal) Range: 1.5-4.5 Albumin, Serum 4.3 g/dL (Normal) Range: 3.5-4.7 Protein, Total, Serum 6.5 g/dL (Normal) Range: 6.0-8.5 Calcium, Serum 9.0 mg/dL (Normal) Range: 8.7-10.3 Carbon Dioxide, Total 24 mmol/L (Normal) Range: 18-29 Chloride, Serum 102 mmol/L (Normal) Range: 96-106 Potassium, Serum 4.3 mmol/L (Normal) Range: 3.5-5.2 Sodium, Serum 143 mmol/L (Normal) Range: 134-144 BUN/Creatinine Ratio 22 (Normal) Range: 12-28 eGFR If Africn Am 100 mL/min/1.73 (Normal) eGFR If NonAfricn Am 86 mL/min/1.73 (Normal) Creatinine, Serum 0.60 mg/dL (Normal) Range: 0.57-1.00 BUN 13 mg/dL (Normal) Range: 8-27 Glucose, Serum 91 mg/dL (Normal) Range: 65-99 52-Kbt-63199:58 CBC W/Diff, Automated Comments: [facility] [address] [place], [place], [id number] Absolute Lymph 1.41 {X10_3/ul} (Normal) Range: 0.83-4.51 Absolute Neut 3.9 {X10_3/uL} (Normal) Range: 2.0-7.7 IM GRAN % 0.300 % (Normal) Range: 0.0-0.9 Comments: IG% - Immature Granulocytes (promyelocytes, myelocytes andmetamyelocytes) > 1% indicates that a LEFT SHIFT is Present. BASO% 0.5 % (Normal) Range: 0-1 EO% 1.7 % (Normal) Range: 0-5 MONO% 7.8 % (Normal) Range: 0-10 LY% 23.9 % (Normal) Range: 19-41 NEUT% 65.8 % (Normal) Range: 47-70 MPV 10.1 fL (Normal) Range: 6.2-12.0 PLT 255 K/mm3 (Normal) Range: 150-450 RDW SD 44.9 fL (Abnormal) Range: 35.1-43.9 RDW CV 13.5 % (Normal) Range: 11.6-14.6 MCHC 32.9 {g/gl} (Normal) Range: 32-36 MCH 30.6 pg (Normal) Range: 27.0-32.0 MCV 93.3 fL (Normal) Range: 81-99 HCT 41.7 % (Normal) Range: 37-47 HGB 13.7 g/dL (Normal) Range: 12.0-15.0 RBC 4.47 {M/mm3} (Normal) Range: 4.2-5.4 WBC 5.9 K/mm3 (Normal) Range: 4.4-11.0 :58 Hemoglobin A1c Comments: [facility] F[address]udoaiya[address] [place], [place], [id number] HGB A1C 5.7 % (Normal) Range: 4.2-6.3 38-Xet-194876:09 Fecal Occult Blood , Office (Inhouse) (49292) Fecal Occult Blood , Office (Inhouse) Negative (Normal) Comments: error 8-Rmd-735214:07 Basic Metabolic Profile (BMP) Comments: [facility] Wjnomxklbi6828 [facility] [address] [place], [place], [address] GAP 10 (Normal) Range: 5-15 CO2 27.0 mmol/L (Normal) Range: 21.0-32.0 CL 103 mmol/L (Normal) Range: 98-107 K 3.7 mmol/L (Normal) Range: 3.5-5.1 NA 140 mmol/L (Normal) Range: 136-145 CA 9.0 mg/dL (Normal) Range: 8.5-10.1 BUN/CRE 24.7 {RATIO} (Abnormal) Range: 10-20 EST GFR - AA 93 mL/min (Normal) Comments: GFR Calc EST GFR 77 mL/min (Normal) Comments: Non- GFR Calc CREAT,SERUM 0.77 mg/dL (Normal) Range: 0.55-1.02 Comments: The validity of the calculated GFR AND GFRAA in patients over70 years has not been determined. Clinical correlation isessential. BUN 19 mg/dL (Abnormal) Range: 7-18 GLU 98 mg/dL (Normal) Range: 70-110 3-Jxq-951625:07 CBC-Complete Blood Cnt No Diff Comments: [facility] [address] [place], [address] MPV 10.8 fL (Normal) Range: 6.2-12.0 PLT 178 K/mm3 (Normal) Range: 150-450 RDW SD 43.8 fL (Normal) Range: 35.1-43.9 RDW CV 13.2 % (Normal) Range: 11.6-14.6 MCHC 34.3 {g/gl} (Normal) Range: 32-36 MCH 31.5 pg (Normal) Range: 27.0-32.0 MCV 91.9 fL (Normal) Range: 81-99 HCT 42.0 % (Normal) Range: 37-47 HGB 14.4 g/dL (Normal) Range: 12.0-15.0 RBC 4.57 {M/mm3} (Normal) Range: 4.2-5.4 WBC 6.2 K/mm3 (Normal) Range: 4.4-11.0 27-Mmb-624547:25 HgA1C , Office (76424) HgA1C , Office 5.6 % (Normal) Range: 4.6 - 7.1 11-Pqh-512818:25 Blood Glucose , Office (77546) Blood Glucose , Office 106 (Normal) 67-Ihl-601174:30 VITAMIN B-12 Comments: PATIENT WAS FASTINGPERFORMED BY: Leverage[employer]7 [facility] [id number] BY: TravelAI Coreworx [facility] [id number] (CYANOCOBALAMIN) (14308) Vitamin B12 511 pg/mL (Normal) Range: 211-946 11-Fey-935707:30 MICROALBUMIN: CREATININE Comments: PATIENT WAS FASTINGPERFORMED BY: [address]theloo[address] [id number] BY: TravelAI Gbcmum1719 [facility] CenterTreasure In The Sand PizzeriaMaria [facility] [id number] RATIO (78546) AND (75381) Microalb/Creat Ratio 7.0 {mg/g_creat} (Normal) Range: 0.0-30.0 Microalbumin, Urine 3.6 ug/mL (Normal) Creatinine, Urine 51.4 mg/dL (Normal) 42-Nwu-464496:30 CBC W/AUTO DIFF WBC Comments: PATIENT WAS FASTINGPERFORMED BY: BN [facility] Bmgbjhuqmt0413 [facility] [id number] BY: CB [facility] Cucmvn1549 [facility] [id number] (03665) Immature Grans (Abs) 0.0 {x10E3/uL} (Normal) Range: 0.0-0.1 Immature Granulocytes 0 % (Normal) Baso (Absolute) 0.0 {x10E3/uL} (Normal) Range: 0.0-0.2 Eos (Absolute) 0.1 {x10E3/uL} (Normal) Range: 0.0-0.4 Monocytes(Absolute) 0.5 {x10E3/uL} (Normal) Range: 0.1-0.9 Lymphs (Absolute) 1.9 {x10E3/uL} (Normal) Range: 0.7-3.1 Neutrophils (Absolute) 3.6 {x10E3/uL} (Normal) Range: 1.4-7.0 Basos 0 % (Normal) Eos 2 % (Normal) Monocytes 8 % (Normal) Lymphs 31 % (Normal) Neutrophils 59 % (Normal) Platelets 204 {x10E3/uL} (Normal) Range: 150-379 RDW 13.4 % (Normal) Range: 12.3-15.4 MCHC 33.7 g/dL (Normal) Range: 31.5-35.7 MCH 30.7 pg (Normal) Range: 26.6-33.0 MCV 91 fL (Normal) Range: 79-97 Hematocrit 41.9 % (Normal) Range: 34.0-46.6 Hemoglobin 14.1 g/dL (Normal) Range: 11.1-15.9 RBC 4.59 {x10E6/uL} (Normal) Range: 3.77-5.28 WBC 6.1 {x10E3/uL} (Normal) Range: 3.4-10.8 64-Qbd-943054:30 METABOLIC PANEL, Comments: PATIENT WAS FASTINGPERFORMED BY: LabCo[address] [id number] BY: LabValnevaUniversity HospitalBcixzi9090 [facility] [id number] COMPREHENSIVE (31971) ALT (SGPT) 13 [iU]/L (Normal) Range: 0-32 AST (SGOT) 17 [iU]/L (Normal) Range: 0-40 Alkaline Phosphatase, S 75 [iU]/L (Normal) Range: 39-117 Bilirubin, Total 0.5 mg/dL (Normal) Range: 0.0-1.2 A/G Ratio 1.6 (Normal) Range: 1.2-2.2 Globulin, Total 2.5 g/dL (Normal) Range: 1.5-4.5 Albumin, Serum 3.9 g/dL (Normal) Range: 3.5-4.8 Protein, Total, Serum 6.4 g/dL (Normal) Range: 6.0-8.5 Calcium, Serum 8.9 mg/dL (Normal) Range: 8.7-10.3 Carbon Dioxide, Total 24 mmol/L (Normal) Range: 18-29 Chloride, Serum 104 mmol/L (Normal) Range: 96-106 Potassium, Serum 4.1 mmol/L (Normal) Range: 3.5-5.2 Sodium, Serum 144 mmol/L (Normal) Range: 134-144 BUN/Creatinine Ratio 17 (Normal) Range: 12-28 eGFR If Africn Am 97 mL/min/1.73 (Normal) eGFR If NonAfricn Am 84 mL/min/1.73 (Normal) Creatinine, Serum 0.66 mg/dL (Normal) Range: 0.57-1.00 BUN 11 mg/dL (Normal) Range: 8-27 Glucose, Serum 102 mg/dL (Abnormal) Range: 65-99 31-Sel-390494:30 LIPOPROTEIN, BLD, BY NMR Comments: PATIENT WAS FASTINGPERFORMED BY: LabCo[address] [id number] BY: LabCoJoan Ville 0289270 [facility] [id number]; non-emergent till apt ([address]) LP-IR Score 60 (Abnormal) Comments: INSULIN RESISTANCE MARKER <--Insulin Sensitive Insulin Resistant--> Percentile in Reference PopulationInsulin Resistance ScoreLP-IR Score Low 25th 50th 75th High <27 27 45 63 >63LP-IR Score is inaccurate if patient is non-fasting. .The LP-IR score is a laboratory developed i [facility] that has beenassociated with insulin resistance and diabetes risk and should beused as one component of a physician's clinical assessment. TheLP-IR score listed above has not been cleared by the US Food andDrug Administration. LDL Size 20.4 nm (Normal) Comments: INTERPRETATIVE INFORMATION PARTICLE CONCENTRATION AND SIZE <--Lower CVD Risk Highe r CVD Risk--> LDL AND HDL PARTICLES Percentile in Reference Population HDL-P (total) High 75th 50th 25th Low >34.9 34.9 30.5 26.7 <26.7 . Small LDL-P Low 25th 50th 75th High <117 117 527 839 >839 . LDL Size <-Large (Pattern A)-> <-Small (Pattern B)-> 23.0 20.6 20.5 19.0 Small LDL-P and LDL Size are associated with CVD risk, but not afterLDL-P is taken into account. .These assays were developed and their performance characteristicsdetermined by [employer]. These assays have not been cleared by [place] Food and Drug Administration. The clinical utility of theselaboratory values have not been fully established. Small LDL-P 882 nmol/L (Abnormal) HDL-P (Total) 26.5 umol/L (Abnormal) Cholesterol, Total 179 mg/dL (Normal) Range: 100-199 Triglycerides 156 mg/dL (Abnormal) Range: 0-149 HDL-C 37 mg/dL (Abnormal) LDL-C 111 mg/dL (Abnormal) Range: 0-99 Comments: . Optimal < 100 Above optimal 100 - 129 Borderline 1 30 - 159 High 160 - 189 Very high > 189 .LDL-C is inaccurate if patient is non-fasting. LDL-P 1564 nmol/L (Abnormal) Comments: Low < 1000 Moderate 1000 - 1299 Borderline-High 1300 - 1599 High 1600 - 2000 Very High > 2000 25-Vyr-274862:47 Urinalysis, Office (72333) UA - LEUKOCYTE ESTERASE Small (Normal) UA - NITRITE Negative (Normal) URINE UROBILINGN KOLBY TIMED Normal mg/dL (Normal) UA - PROTEIN Negative mg/dL (Normal) UA - PH 6.5 (Normal) UA - BLOOD Negative (Normal) UA - SPECIFIC GRAVITY 1.015 (Normal) UA - KETONES Negative mg/dL (Normal) UA - BILIRUBIN Negative (Normal) UA - GLUCOSE Negative (Normal) 71-Xvn-147944:42 URINE TEA CULTURE-IDENTIFICATN Comments: PATIENT NOT FASTINGPERFORMED BY: ReviewZAP [facility] [id number] Information: SRC:UC (33001) Result 1 MUG (Normal) Comments: Mixed urogenital flora25,000-50,000 colony forming units per mL Urine Final report (Normal) Culture,Comprehensive 59-Dek-782121:25 HgA1C , Office (06398) HgA1C , Office 5.4 % (Normal) Range: 4.6 - 7.1 21-Bqz-635686:31 MICROALBUMIN: CREATININE Comments: PATIENT WAS FASTINGPERFORMED BY: BeneStream [facility] [id number] BY: [employer] ([place])6370 [facility] [id number] RATIO (57272) AND (53565) Microalb/Creat Ratio 77.7 {mg/g_creat} (Abnormal) Range: 0.0-30.0 Microalbumin, Urine 30.3 ug/mL (Normal) Creatinine, Urine 39.0 mg/dL (Normal) 35-Nrn-253450:31 CBC, PLATELETS & AUT DIFF Comments: PATIENT WAS FASTINGPERFORMED BY: 2thelooton1447 [facility] [id number] BY: LabCoUniversity HospitalOdukee9920 [facility] [id number] (85571) Immature Grans (Abs) 0.0 {x10E3/uL} (Normal) Range: 0.0-0.1 Immature Granulocytes 0 % (Normal) Baso (Absolute) 0.0 {x10E3/uL} (Normal) Range: 0.0-0.2 Eos (Absolute) 0.1 {x10E3/uL} (Normal) Range: 0.0-0.4 Monocytes(Absolute) 0.4 {x10E3/uL} (Normal) Range: 0.1-0.9 Lymphs (Absolute) 2.4 {x10E3/uL} (Normal) Range: 0.7-3.1 Neutrophils (Absolute) 2.6 {x10E3/uL} (Normal) Range: 1.4-7.0 Basos 1 % (Normal) Eos 2 % (Normal) Monocytes 8 % (Normal) Lymphs 43 % (Normal) Neutrophils 46 % (Normal) Platelets 204 {x10E3/uL} (Normal) Range: 150-379 RDW 14.3 % (Normal) Range: 12.3-15.4 MCHC 33.2 g/dL (Normal) Range: 31.5-35.7 MCH 31.1 pg (Normal) Range: 26.6-33.0 MCV 94 fL (Normal) Range: 79-97 Hematocrit 43.7 % (Normal) Range: 34.0-46.6 Hemoglobin 14.5 g/dL (Normal) Range: 11.1-15.9 RBC 4.66 {x10E6/uL} (Normal) Range: 3.77-5.28 WBC 5.7 {x10E3/uL} (Normal) Range: 3.4-10.8 50-Qvp-037739:31 VITAMIN B-12 Comments: PATIENT WAS FASTINGPERFORMED BY: Lab[address] [id number] BY: LabCorewell Health [facility]6370 [facility] [id number] (CYANOCOBALAMIN) (34440) Vitamin B12 604 pg/mL (Normal) Range: 211-946 06-Dlt-222337:31 METABOLIC PANEL, Comments: PATIENT WAS FASTINGPERFORMED BY: Venyo[address] [id number] BY: VenyoUniversity HospitalFxncde7344 [facility] [id number] COMPREHENSIVE (21186) ALT (SGPT) 22 [iU]/L (Normal) Range: 0-32 AST (SGOT) 17 [iU]/L (Normal) Range: 0-40 Alkaline Phosphatase, S 75 [iU]/L (Normal) Range: 39-117 Bilirubin, Total 0.4 mg/dL (Normal) Range: 0.0-1.2 A/G Ratio 1.8 (Normal) Range: 1.2-2.2 Comments: Please note reference interval change Globulin, Total 2.4 g/dL (Normal) Range: 1.5-4.5 Albumin, Serum 4.3 g/dL (Normal) Range: 3.5-4.8 Protein, Total, Serum 6.7 g/dL (Normal) Range: 6.0-8.5 Calcium, Serum 8.8 mg/dL (Normal) Range: 8.7-10.3 Carbon Dioxide, Total 22 mmol/L (Normal) Range: 18-29 Chloride, Serum 103 mmol/L (Normal) Range: 96-106 Potassium, Serum 4.1 mmol/L (Normal) Range: 3.5-5.2 Sodium, Serum 143 mmol/L (Normal) Range: 134-144 BUN/Creatinine Ratio 21 (Normal) Range: 11-26 eGFR If Africn Am 95 mL/min/1.73 (Normal) eGFR If NonAfricn Am 83 mL/min/1.73 (Normal) Creatinine, Serum 0.70 mg/dL (Normal) Range: 0.57-1.00 BUN 15 mg/dL (Normal) Range: 8-27 Glucose, Serum 101 mg/dL (Abnormal) Range: 65-99 86-Gff-328405:31 LIPOPROTEIN, BLD, BY NMR Comments: PATIENT WAS FASTINGPERFORMED BY: Venyo[address] [id number] BY: VenyoUniversity HospitalHefvyx8909 [facility] [id number] (19550) LP-IR Score 72 (Abnormal) Comments: INSULIN RESISTANCE MARKER <--Insulin Sensitive Insulin Resistant--> Percentile in Reference PopulationInsulin Resistance ScoreLP-IR Score Low 25th 50th 75th High <27 27 45 63 >63LP-IR Score is inaccurate if patient is non-fasting. .The LP-IR score is a laboratory developed i [facility] that has beenassociated with insulin resistance and diabetes risk and should beused as one component of a physician's clinical assessment. TheLP-IR score listed above has not been cleared by the US Food andDrug Administration. LDL Size 20.2 nm (Normal) Comments: INTERPRETATIVE INFORMATION PARTICLE CONCENTRATION AND SIZE <--Lower CVD Risk Highe r CVD Risk--> LDL AND HDL PARTICLES Percentile in Reference Population HDL-P (total) High 75th 50th 25th Low >34.9 34.9 30.5 26.7 <26.7 . Small LDL-P Low 25th 50th 75th High <117 117 527 839 >839 . LDL Size <-Large (Pattern A)-> <-Small (Pattern B)-> 23.0 20.6 20.5 19.0 Small LDL-P and LDL Size are associated with CVD risk, but not afterLDL-P is taken into account. .These assays were developed and their performance characteristicsdetermined by [employer]. These assays have not been cleared by [place] Food and Drug Administration. The clinical utility of theselaboratory values have not been fully established. Small LDL-P 1084 nmol/L (Abnormal) HDL-P (Total) 32.1 umol/L (Normal) Cholesterol, Total 198 mg/dL (Normal) Range: 100-199 Triglycerides 148 mg/dL (Normal) Range: 0-149 HDL-C 41 mg/dL (Normal) LDL-C 127 mg/dL (Abnormal) Range: 0-99 Comments: . Optimal < 100 Above optimal 100 - 129 Borderline 1 30 - 159 High 160 - 189 Very high > 189 .LDL-C is inaccurate if patient is non-fasting. LDL-P 1634 nmol/L (Abnormal) Comments: Low < 1000 Moderate 1000 - 1299 Borderline-High 1300 - 1599 High 1600 - 2000 Very High > 2000 9-Ynu-300081:22 HGB A1C (79180) Comments: PATIENT WAS FASTINGPERFORMED BY: Venyo[address] [id number] BY: VenyoUniversity HospitalVfvnci7396 [facility] [id number] Hemoglobin A1c 5.8 % (Abnormal) Range: 4.8-5.6 Comments: . Pre-diabetes: 5.7 - 6.4 Diabetes: >6.4 Glycemic control for adults with diabetes: <7.0 8-Bkk-162772:22 VITAMIN B-12 (CYANOCOBALAMIN) Comments: PATIENT WAS FASTINGPERFORMED BY: Venyo[address] [id number] BY: VenyoJoan [place] 0289270 [facility] [id number] (83180) Vitamin B12 511 pg/mL (Normal) Range: 211-946 8-Otr-737505:22 CBC W/AUTO DIFF WBC Comments: PATIENT WAS FASTINGPERFORMED BY: Venyo[address] [id number] BY: Venyo[address] [id number] (93784) Immature Grans (Abs) 0.0 {x10E3/uL} (Normal) Range: 0.0-0.1 Immature Granulocytes 0 % (Normal) Baso (Absolute) 0.0 {x10E3/uL} (Normal) Range: 0.0-0.2 Eos (Absolute) 0.1 {x10E3/uL} (Normal) Range: 0.0-0.4 Monocytes(Absolute) 0.5 {x10E3/uL} (Normal) Range: 0.1-0.9 Lymphs (Absolute) 2.0 {x10E3/uL} (Normal) Range: 0.7-3.1 Neutrophils (Absolute) 3.4 {x10E3/uL} (Normal) Range: 1.4-7.0 Basos 0 % (Normal) Eos 1 % (Normal) Monocytes 8 % (Normal) Lymphs 34 % (Normal) Neutrophils 57 % (Normal) Platelets 172 {x10E3/uL} (Normal) Range: 150-379 RDW 14.7 % (Normal) Range: 12.3-15.4 MCHC 34.5 g/dL (Normal) Range: 31.5-35.7 MCH 31.6 pg (Normal) Range: 26.6-33.0 MCV 92 fL (Normal) Range: 79-97 Hematocrit 44.6 % (Normal) Range: 34.0-46.6 Hemoglobin 15.4 g/dL (Normal) Range: 11.1-15.9 RBC 4.87 {x10E6/uL} (Normal) Range: 3.77-5.28 WBC 5.9 {x10E3/uL} (Normal) Range: 3.4-10.8 6-Lgi-110375:22 METABOLIC PANEL, Comments: PATIENT WAS FASTINGPERFORMED BY: BN [facility] [address] [id number] BY: CB [facility] Qqrkhw2686 [facility] [id number] COMPREHENSIVE (20579) ALT (SGPT) 18 [iU]/L (Normal) Range: 0-32 AST (SGOT) 19 [iU]/L (Normal) Range: 0-40 Alkaline Phosphatase, S 57 [iU]/L (Normal) Range: 39-117 Bilirubin, Total 0.5 mg/dL (Normal) Range: 0.0-1.2 A/G Ratio 1.8 (Normal) Range: 1.1-2.5 Globulin, Total 2.3 g/dL (Normal) Range: 1.5-4.5 Albumin, Serum 4.1 g/dL (Normal) Range: 3.5-4.8 Protein, Total, Serum 6.4 g/dL (Normal) Range: 6.0-8.5 Calcium, Serum 9.1 mg/dL (Normal) Range: 8.7-10.3 Carbon Dioxide, Total 25 mmol/L (Normal) Range: 18-29 Chloride, Serum 101 mmol/L (Normal) Range: 97-106 Comments: Effective September 04, 2016 the reference interval for Chloride, Serum will be changing to: 96 - 106 Potassium, Serum 4.2 mmol/L (Normal) Range: 3.5-5.2 Sodium, Serum 141 mmol/L (Normal) Range: 136-144 Comments: Effective September 04, 2016 the reference interval for Sodium, Serum will be changing to: 134 - 144 BUN/Creatinine Ratio 23 (Normal) Range: 11-26 eGFR If Africn Am 95 mL/min/1.73 (Normal) eGFR If NonAfricn Am 83 mL/min/1.73 (Normal) Creatinine, Serum 0.70 mg/dL (Normal) Range: 0.57-1.00 BUN 16 mg/dL (Normal) Range: 8-27 Glucose, Serum 92 mg/dL (Normal) Range: 65-99 9-Wsq-841631:22 LIPOPROTEIN, BLD, BY NMR Comments: PATIENT WAS FASTINGPERFORMED BY: BN [facility] [address] [id number] BY: CB [facility] Xutjbh7851 [facility] [id number]; non-emergent till apt (00969) LP-IR Score 73 (Abnormal) Comments: INSULIN RESISTANCE MARKER <--Insulin Sensitive Insulin Resistant--> Percentile in Reference PopulationInsulin Resistance ScoreLP-IR Score Low 25th 50th 75th High <27 27 45 63 >63LP-IR Score is inaccurate if patient is non-fasting. .The LP-IR score is a laboratory developed i [facility] that has beenassociated with insulin resistance and diabetes risk and should beused as one component of a physician's clinical assessment. TheLP-IR score listed above has not been cleared by the US Food andDrug Administration. LDL Size 20.0 nm (Normal) Comments: INTERPRETATIVE INFORMATION PARTICLE CONCENTRATION AND SIZE <--Lower CVD Risk Highe r CVD Risk--> LDL AND HDL PARTICLES Percentile in Reference Population HDL-P (total) High 75th 50th 25th Low >34.9 34.9 30.5 26.7 <26.7 . Small LDL-P Low 25th 50th 75th High <117 117 527 839 >839 . LDL Size <-Large (Pattern A)-> <-Small (Pattern B)-> 23.0 20.6 20.5 19.0 Small LDL-P and LDL Size are associated with CVD risk, but not afterLDL-P is taken into account. .These assays were developed and their performance characteristicsdetermined by [employer]. These assays have not been cleared by [place] Food and Drug Administration. The clinical utility of theselaboratory values have not been fully established. Small LDL-P 1491 nmol/L (Abnormal) HDL-P (Total) 25.4 umol/L (Abnormal) Cholesterol, Total 230 mg/dL (Abnormal) Range: 100-199 Triglycerides 202 mg/dL (Abnormal) Range: 0-149 HDL-C 34 mg/dL (Abnormal) LDL-C 156 mg/dL (Abnormal) Range: 0-99 Comments: . Optimal < 100 Above optimal 100 - 129 Borderline 1 30 - 159 High 160 - 189 Very high > 189 .LDL-C is inaccurate if patient is non-fasting. LDL-P 2226 nmol/L (Abnormal) Comments: Low < 1000 Moderate 1000 - 1299 Borderline-High 1300 - 1599 High 1600 - 2000 Very High > 2000 [id number] Vitamin D Hydroxy Comments: PATIENT WAS FASTINGPERFORMED BY: [facility] CenterSrioouhjuu8137 [facility] [id number] BY: [facility] [id number] [facility] [id number] ([id number]) Vitamin D, 25-Hydroxy 59.7 ng/mL (Normal) Range: 30.0-100.0 Comments: Vitamin D deficiency has been defined by the [place] [employer] and an Endocrine Society practice guideline as alevel of serum 25-OH vitamin D less than 20 ng/mL (1,2).The Endocrine Society went on to further define vitamin Dinsufficiency as a level between 21 and 29 ng/mL (2).1. IOM ([place] [employer]). 2010. Dietary reference intakes for calcium and D. [place]: The National Academies Press.2. Freddy MF, Pineda NC, Brody KHOURY, et al. Evaluation, treatment, and prevention of vitamin D deficiency: an Endocrine Society clinical practice guideline. JCEM. 2010; 96(7):1911-30. :37 HgA1C , Office (76731) HgA1C , Office 5.6 % (Normal) Range: 4.6 - 7.1 [id number] Lipid Panel With LDL/HDL Comments: PATIENT NOT FASTINGPERFORMED BY: [facility] [id number] [facility] [id number] Information: [id number] Ratio LDL/HDL Ratio 2.4 {ratio_units} Range: 0.0-3.2 (Normal) Comments: LDL/HDL Ratio Men Women 1/2 Avg.Risk 1.0 1.5 Av g.Risk 3.6 3.2 2X Avg.Risk 6.2 5.0 3X Avg.Risk 8.0 6.1 LDL Cholesterol Calc 106 mg/dL (Abnormal) Range: 0-99 VLDL Cholesterol Alexander 29 mg/dL (Normal) Range: 5-40 HDL Cholesterol 44 mg/dL (Normal) Comments: According to ATP-III Guidelines, HDL-C >59 mg/dL is considered anegative risk factor for CHD. Triglycerides 143 mg/dL (Normal) Range: 0-149 Cholesterol, Total 179 mg/dL (Normal) Range: 100-199 Written Authorization WAR (Normal) Comments: PATIENT NOT FASTINGPERFORMED BY: [facility] Xiscer1405 [facility] [id number] 0:25 Comments: Written Authorization Received.Authorization received from KINDRA VARGAS [id number] by Madie Huynh 1-Auv-241165:24 Vitamin D Hydroxy (11326) Comments: PATIENT WAS FASTINGPERFORMED BY: Zero MotorcyclesFulton Medical Center- FultonXpdclz8080 [facility] [id number] Vitamin D, 25-Hydroxy 32.9 ng/mL (Normal) Range: 30.0-100.0 Comments: Vitamin D deficiency has been defined by the [place] [facility] and an Endocrine Society practice guideline as alevel of serum 25-OH vitamin D less than 20 ng/mL (1,2).The Endocrine Society went on to further define vitamin Dinsufficiency as a level between 21 and 29 ng/mL (2).1. IOM ([place] of Medicine). 2010. Dietary reference intakes for calcium and D. [place]: The National Academies Press.2. Freddy MF, Pineda EUBANKS, Brody KHOURY, et al. Evaluation, treatment, and prevention of vitamin D deficiency: an Endocrine Society clinical practice guideline. JCEM. 2010; 96(7):1911-30. 9-Llc-054792:24 METABOLIC PANEL, COMPREHENSIVE Comments: PATIENT WAS FASTINGPERFORMED BY: VenyoUniversity HospitalUnhfwm1387 [facility] [id number] (67905) ALT (SGPT) 12 [iU]/L (Normal) Range: 0-32 AST (SGOT) 16 [iU]/L (Normal) Range: 0-40 Alkaline Phosphatase, S 73 [iU]/L (Normal) Range: 39-117 Bilirubin, Total 0.4 mg/dL (Normal) Range: 0.0-1.2 A/G Ratio 1.8 (Normal) Range: 1.1-2.5 Globulin, Total 2.4 g/dL (Normal) Range: 1.5-4.5 Albumin, Serum 4.3 g/dL (Normal) Range: 3.5-4.8 Protein, Total, Serum 6.7 g/dL (Normal) Range: 6.0-8.5 Calcium, Serum 9.5 mg/dL (Normal) Range: 8.7-10.3 Carbon Dioxide, Total 21 mmol/L (Normal) Range: 18-29 Chloride, Serum 101 mmol/L (Normal) Range: 97-108 Potassium, Serum 4.6 mmol/L (Normal) Range: 3.5-5.2 Sodium, Serum 140 mmol/L (Normal) Range: 134-144 BUN/Creatinine Ratio 24 (Normal) Range: 11-26 eGFR If Africn Am 77 mL/min/1.73 (Normal) eGFR If NonAfricn Am 67 mL/min/1.73 (Normal) Creatinine, Serum 0.84 mg/dL (Normal) Range: 0.57-1.00 BUN 20 mg/dL (Normal) Range: 8-27 Glucose, Serum 109 mg/dL (Abnormal) Range: 65-99 9-Mjd-528920:24 CBC W/AUTO DIFF WBC Comments: PATIENT WAS FASTINGPERFORMED BY: LabCoUniversity HospitalRmegbv3914 [facility] [id number] Information: [id number] (44694) Immature Grans (Abs) 0.0 {x10E3/uL} (Normal) Range: 0.0-0.1 Immature Granulocytes 0 % (Normal) Baso (Absolute) 0.0 {x10E3/uL} (Normal) Range: 0.0-0.2 Eos (Absolute) 0.1 {x10E3/uL} (Normal) Range: 0.0-0.4 Monocytes(Absolute) 0.5 {x10E3/uL} (Normal) Range: 0.1-0.9 Lymphs (Absolute) 2.1 {x10E3/uL} (Normal) Range: 0.7-3.1 Neutrophils (Absolute) 3.7 {x10E3/uL} (Normal) Range: 1.4-7.0 Basos 1 % (Normal) Eos 2 % (Normal) Monocytes 8 % (Normal) Lymphs 32 % (Normal) Neutrophils 57 % (Normal) Platelets 206 {x10E3/uL} (Normal) Range: 150-379 RDW 14.3 % (Normal) Range: 12.3-15.4 MCHC 34.5 g/dL (Normal) Range: 31.5-35.7 MCH 31.1 pg (Normal) Range: 26.6-33.0 MCV 90 fL (Normal) Range: 79-97 Hematocrit 41.7 % (Normal) Range: 34.0-46.6 Hemoglobin 14.4 g/dL (Normal) Range: 11.1-15.9 RBC 4.63 {x10E6/uL} (Normal) Range: 3.77-5.28 WBC 6.5 {x10E3/uL} (Normal) Range: 3.4-10.8 :25 Vitamin B-12 (cyanocobalamin) Comments: 1 month; PATIENT NOT FASTINGPERFORMED BY: [facility]6370 [facility] [id number] Information: [id number] (94986) Vitamin B12 1403 pg/mL (Abnormal) Range: 211-946 :53 CBC, PLATELETS & AUT DIFF Comments: PATIENT NOT FASTINGPERFORMED BY: LabCoUniversity HospitalJoyffc5689 [facility] [id number] Information: [id number] (76118) Immature Grans (Abs) 0.0 {x10E3/uL} (Normal) Range: 0.0-0.1 Immature Granulocytes 0 % (Normal) Baso (Absolute) 0.0 {x10E3/uL} (Normal) Range: 0.0-0.2 Eos (Absolute) 0.2 {x10E3/uL} (Normal) Range: 0.0-0.4 Monocytes(Absolute) 0.5 {x10E3/uL} (Normal) Range: 0.1-0.9 Lymphs (Absolute) 2.4 {x10E3/uL} (Normal) Range: 0.7-3.1 Neutrophils (Absolute) 3.6 {x10E3/uL} (Normal) Range: 1.4-7.0 Basos 0 % (Normal) Eos 2 % (Normal) Monocytes 7 % (Normal) Lymphs 35 % (Normal) Neutrophils 56 % (Normal) Platelets 211 {x10E3/uL} (Normal) Range: 150-379 RDW 14.4 % (Normal) Range: 12.3-15.4 MCHC 33.6 g/dL (Normal) Range: 31.5-35.7 MCH 30.3 pg (Normal) Range: 26.6-33.0 MCV 90 fL (Normal) Range: 79-97 Hematocrit 44.7 % (Normal) Range: 34.0-46.6 Hemoglobin 15.0 g/dL (Normal) Range: 11.1-15.9 RBC 4.95 {x10E6/uL} (Normal) Range: 3.77-5.28 WBC 6.7 {x10E3/uL} (Normal) Range: 3.4-10.8 :53 VITAMIN B-12 (CYANOCOBALAMIN) Comments: PATIENT NOT FASTINGPERFORMED BY: [employer] Angnch5179 [address] [place] [id number] (94082) Vitamin B12 298 pg/mL (Normal) Range: 211-946 :53 TSH (40094) Comments: PATIENT NOT FASTINGPERFORMED BY: PLASTIQ [facility] Tvkknj4920 [address] imedoDublin [place] [id number] TSH 2.590 {uIU/mL} (Normal) Range: 0.450-4.500 :53 LIPID PANEL (96171) Comments: PATIENT NOT FASTINGPERFORMED BY: [employer] Ygmwnv7840 [address] imedoDublin [place] [id number] LDL/HDL Ratio 2.5 {ratio_units} (Normal) Range: 0.0-3.2 Comments: LDL/HDL Ratio Men Women 1/2 Avg.Risk 1.0 1.5 Av g.Risk 3.6 3.2 2X Avg.Risk 6.2 5.0 3X Avg.Risk 8.0 6.1 LDL Cholesterol Calc 116 mg/dL (Abnormal) Range: 0-99 VLDL Cholesterol Alxeander 26 mg/dL (Normal) Range: 5-40 HDL Cholesterol 47 mg/dL (Normal) Comments: According to ATP-III Guidelines, HDL-C >59 mg/dL is considered anegative risk factor for CHD. Triglycerides 130 mg/dL (Normal) Range: 0-149 Cholesterol, Total 189 mg/dL (Normal) Range: 100-199 :37 HgA1C , Office (47878) HgA1C , Office 5.8 % (Normal) Range: 4.6 - 7.1 :13 Vitamin D Hydroxy (03274) Comments: PATIENT WAS FASTINGPERFORMED BY: PLAST[facility] Nswppt7514 [address] imedoDublin [place] [id number] Vitamin D, 25-Hydroxy 44.2 ng/mL (Normal) Range: 30.0-100.0 Comments: Vitamin D deficiency has been defined by the [place] of[place]icine and an Endocrine Society practice guideline as alevel of serum 25-OH vitamin D less than 20 ng/mL (1,2).The Endocrine Society went on to further define vitamin Dinsufficiency as a level between 21 and 29 ng/mL (2).1. IOM ([place] of Medicine). 2010. Dietary reference intakes for calcium and D. [place]: The National Academies Press.2. Freddy MF, Pineda EUBANKS, Brody KHOURY, et al. Evaluation, treatment, and prevention of vitamin D deficiency: an Endocrine Society clinical practice guideline. JCEM. 2010; 96(7):1911-30. 56-Blp-030951:13 METABOLIC PANEL, Comments: PATIENT WAS FASTINGPERFORMED BY: LabCoUniversity HospitalWuxrrr2361 [facility] [id number] Information: [id number] COMPREHENSIVE (76184) ALT (SGPT) 11 [iU]/L (Normal) Range: 0-32 AST (SGOT) 14 [iU]/L (Normal) Range: 0-40 Alkaline Phosphatase, S 73 [iU]/L (Normal) Range: 39-117 Bilirubin, Total 0.5 mg/dL (Normal) Range: 0.0-1.2 A/G Ratio 1.6 (Normal) Range: 1.1-2.5 Globulin, Total 2.6 g/dL (Normal) Range: 1.5-4.5 Albumin, Serum 4.2 g/dL (Normal) Range: 3.5-4.8 Protein, Total, Serum 6.8 g/dL (Normal) Range: 6.0-8.5 Calcium, Serum 9.1 mg/dL (Normal) Range: 8.7-10.3 Carbon Dioxide, Total 20 mmol/L (Normal) Range: 18-29 Chloride, Serum 105 mmol/L (Normal) Range: 97-108 Potassium, Serum 4.1 mmol/L (Normal) Range: 3.5-5.2 Sodium, Serum 143 mmol/L (Normal) Range: 134-144 BUN/Creatinine Ratio 16 (Normal) Range: 11-26 eGFR If Africn Am 78 mL/min/1.73 (Normal) eGFR If NonAfricn Am 68 mL/min/1.73 (Normal) Creatinine, Serum 0.83 mg/dL (Normal) Range: 0.57-1.00 BUN 13 mg/dL (Normal) Range: 8-27 Glucose, Serum 92 mg/dL (Normal) Range: 65-99 70-Oid-088073:13 LIPID PANEL (05191) Comments: PATIENT WAS FASTINGPERFORMED BY: VenyoUniversity HospitalGukkeh8213 [facility] [id number] LDL/HDL Ratio 3.6 {ratio_units} (Abnormal) Range: 0.0-3.2 Comments: LDL/HDL Ratio Men Women 1/2 Avg.Risk 1.0 1.5 Av g.Risk 3.6 3.2 2X Avg.Risk 6.2 5.0 3X Avg.Risk 8.0 6.1 LDL Cholesterol Calc 126 mg/dL (Abnormal) Range: 0-99 VLDL Cholesterol Alexander 32 mg/dL (Normal) Range: 5-40 HDL Cholesterol 35 mg/dL (Abnormal) Comments: According to ATP-III Guidelines, HDL-C >59 mg/dL is considered anegative risk factor for CHD. Triglycerides 159 mg/dL (Abnormal) Range: 0-149 Cholesterol, Total 193 mg/dL (Normal) Range: 100-199 26-Hzl-76506:39 HgA1C , Office (53665) HgA1C , Office 6.2 % (Normal) Range: 4.6 - 7.1 96-Pzt-054589:03 URINE TEA CULTURE-IDENTIFICATN Comments: PATIENT NOT FASTINGPERFORMED BY: Zero MotorcyclesCorewell Health [facility]6370 [facility] [id number] Information: [id number] (25374) Antimicrobial MIHEAD (Normal) Comments: S = Susceptible; I = Intermediate; R = Resistant P = Positive; N = Negative MICS are expressed in micrograms per mL Antibiotic RSLT#1 RSLT#2 RS Susceptibility LT#3 RSLT#4Amoxicillin/Clavulanic Acid IAmpicillin RCefepime SCeftriaxone SCefuroxime SCephalothin ICiprofloxacin SErtapenem SGentamicin SImipenem SLevofloxacin SNitrofurantoin SPipera cillin RTetracycline STobramycin STrimethoprim/Sulfa S Result 1 Escherichia coli Comments: 10,000-25,000 colony forming units per mL (Abnormal) Urine Final report Culture,Comprehensive (Abnormal) :11 Urinalysis, Office (80953) UA - LEUKOCYTE ESTERASE Small (Normal) UA - NITRITE Negative (Normal) URINE UROBILINGN KOLBY TIMED Normal mg/dL (Normal) UA - PROTEIN Negative mg/dL (Normal) UA - PH 7 (Normal) UA - BLOOD Negative (Normal) UA - SPECIFIC GRAVITY 1.015 (Normal) UA - KETONES Negative mg/dL (Normal) UA - BILIRUBIN Negative (Normal) UA - GLUCOSE Negative (Normal) 04-Stx-750993:42 Urine Culture,Comprehensive Comments: PATIENT NOT FASTINGPERFORMED BY: [facility]opMaria [facility] [id number] Information: [facility] [place] [id number] Antimicrobial MIHEAD (Normal) Comments: S = Susceptible; I = Intermediate; R = Resistant P = Positive; N = Negative MICS are expressed in micrograms per mL Antibiotic RSLT#1 RSLT#2 RS Susceptibility LT#3 RSLT#4Amoxicillin/Clavulanic Acid SAmpicillin RCefepime SCeftriaxone SCefuroxime SCephalothin SCiprofloxacin SErtapenem SGentamicin SImipenem SLevofloxacin SNitrofurantoin SPipera cillin RTetracycline STobramycin STrimethoprim/Sulfa S Result 1 Escherichia coli Comments: 50,000-100,000 colony forming units per mL (Abnormal) Urine Final report Culture,Comprehensive (Abnormal) :42 Comp. Metabolic Panel (14) Comments: PATIENT WAS FASTINGPERFORMED BY: [employer] ([place])6370 [facility] [id number] Information: [id number] ALT (SGPT) 12 [iU]/L (Normal) Range: 0-32 AST (SGOT) 15 [iU]/L (Normal) Range: 0-40 Alkaline Phosphatase, 75 [iU]/L (Normal) Range: 39-117 S Bilirubin, Total 0.5 mg/dL (Normal) Range: 0.0-1.2 A/G Ratio 2.1 (Normal) Range: 1.1-2.5 Globulin, Total 2.0 g/dL (Normal) Range: 1.5-4.5 Albumin, Serum 4.1 g/dL (Normal) Range: 3.5-4.8 Protein, Total, Serum 6.1 g/dL (Normal) Range: 6.0-8.5 Calcium, Serum 9.2 mg/dL (Normal) Range: 8.7-10.3 Carbon Dioxide, Total 25 mmol/L (Normal) Range: 18-29 Chloride, Serum 102 mmol/L (Normal) Range: 97-108 Potassium, Serum 4.3 mmol/L (Normal) Range: 3.5-5.2 Sodium, Serum 142 mmol/L (Normal) Range: 134-144 BUN/Creatinine Ratio 16 (Normal) Range: 11-26 eGFR If Africn Am 98 mL/min/1.73 (Normal) eGFR If NonAfricn Am 85 mL/min/1.73 (Normal) Creatinine, Serum 0.68 mg/dL (Normal) Range: 0.57-1.00 BUN 11 mg/dL (Normal) Range: 8-27 Glucose, Serum 94 mg/dL (Normal) Range: 65-99 Hemoglobin A1c 5.6 % (Normal) Comments: PATIENT WAS FASTINGPERFORMED BY: ReviewZAP [facility] [id number] :42 Range: 4.8-5.6 Comments: . Increased risk for diabetes: 5.7 - 6.4 Diabetes: >6.4 Glycemic control for adults with diabetes: <7.0 :42 Lipid Panel With LDL/HDL Comments: PATIENT WAS FASTINGPERFORMED BY: [employer]70 [facility] [id number] Ratio LDL/HDL Ratio 2.9 {ratio_units} (Normal) Range: 0.0-3.2 Comments: LDL/HDL Ratio Men Women 1/2 Avg.Risk 1.0 1.5 Av g.Risk 3.6 3.2 2X Avg.Risk 6.2 5.0 3X Avg.Risk 8.0 6.1 LDL Cholesterol Calc 105 mg/dL (Abnormal) Range: 0-99 VLDL Cholesterol Alexander 39 mg/dL (Normal) Range: 5-40 HDL Cholesterol 36 mg/dL (Abnormal) Comments: According to ATP-III Guidelines, HDL-C >59 mg/dL is considered anegative risk factor for CHD. Triglycerides 196 mg/dL (Abnormal) Range: 0-149 Cholesterol, Total 180 mg/dL (Normal) Range: 100-199 44-Sgm-582861:22 Urine Culture,Comprehensive Comments: PATIENT NOT FASTINGPERFORMED BY: Venyo Jqrxvj7591 [facility] [id number] Information: [id number] Result 1 BETAGB (Abnormal) Comments: Beta hemolytic Streptococcus, group BGreater than 100,000 colony forming units per mLPenicillin and ampicillin are drugs of choice for treatment ofbeta-hemolytic streptococcal infections. Susceptibility testing ofpenicillins and other beta-lactam agents approved by the FDA fortreatment of beta-hemolytic streptococcal infections need not beperformed routinely because nonsusceptible isolates are extreme lyrare in any beta-hemolytic streptococcus and have not been reportedfor Streptococcus pyogenes (group A). (CLSI 2011) Urine Final report (Abnormal) Culture,Comprehensive :43 Urinalysis, Office (12903) UA - LEUKOCYTE ESTERASE Small (Normal) UA - NITRITE Negative (Normal) URINE UROBILINGN KOLBY TIMED Normal mg/dL (Normal) UA - PROTEIN Trace mg/dL (Normal) UA - PH 6.5 (Normal) UA - BLOOD Negative (Normal) UA - SPECIFIC GRAVITY 1.015 (Normal) UA - KETONES Negative mg/dL (Normal) UA - BILIRUBIN Negative (Normal) UA - GLUCOSE Negative (Normal) :43 MICROALBUMIN: CREATININE RATIO Comments: PATIENT WAS FASTINGPERFORMED BY: VenyoUniversity HospitalQimgds0863 [facility] [id number] (67606) AND (21919) Microalb/Creat Ratio 5.2 {mg/g_creat} (Normal) Range: 0.0-30.0 Microalbumin, Urine 6.5 ug/mL (Normal) Range: 0.0-17.0 Creatinine, Urine 125.1 mg/dL (Normal) Range: 15.0-278.0 :43 Vitamin D Hydroxy (33970) Comments: PATIENT WAS FASTINGPERFORMED BY: [facility]6370 [facility] [id number] Vitamin D, 25-Hydroxy 56.5 ng/mL (Normal) Range: 30.0-100.0 Comments: Vitamin D deficiency has been defined by the [place] of[place]icine and an Endocrine Society practice guideline as alevel of serum 25-OH vitamin D less than 20 ng/mL (1,2).The Endocrine Society went on to further define vitamin Dinsufficiency as a level between 21 and 29 ng/mL (2).1. IOM ([place] of Medicine). 2010. Dietary reference intakes for calcium and D. [place]: The National Academies Press.2. Freddy MF, Pineda [place], Brody KHOURY, et al. Evaluation, treatment, and prevention of vitamin D deficiency: an Endocrine Society clinical practice guideline. JCEM. 2010; 96(7):1911-30. :43 CBC W/AUTO DIFF WBC Comments: PATIENT WAS FASTINGPERFORMED BY: LabCoUniversity HospitalFrolpl8438 [facility] [id number] Information: [id number] (67842) Immature Grans (Abs) 0.0 {x10E3/uL} (Normal) Range: 0.0-0.1 Immature Granulocytes 0 % (Normal) Baso (Absolute) 0.0 {x10E3/uL} (Normal) Range: 0.0-0.2 Eos (Absolute) 0.1 {x10E3/uL} (Normal) Range: 0.0-0.4 Monocytes(Absolute) 0.4 {x10E3/uL} (Normal) Range: 0.1-0.9 Lymphs (Absolute) 1.9 {x10E3/uL} (Normal) Range: 0.7-3.1 Neutrophils (Absolute) 3.1 {x10E3/uL} (Normal) Range: 1.4-7.0 Basos 0 % (Normal) Eos 2 % (Normal) Monocytes 8 % (Normal) Lymphs 35 % (Normal) Neutrophils 55 % (Normal) Platelets 186 {x10E3/uL} (Normal) Range: 150-379 RDW 14.1 % (Normal) Range: 12.3-15.4 MCHC 33.7 g/dL (Normal) Range: 31.5-35.7 MCH 30.9 pg (Normal) Range: 26.6-33.0 MCV 92 fL (Normal) Range: 79-97 Hematocrit 42.1 % (Normal) Range: 34.0-46.6 Hemoglobin 14.2 g/dL (Normal) Range: 11.1-15.9 RBC 4.60 {x10E6/uL} (Normal) Range: 3.77-5.28 WBC 5.6 {x10E3/uL} (Normal) Range: 3.4-10.8 30-Oct-20149:43 METABOLIC PANEL, COMPREHENSIVE Comments: PATIENT WAS FASTINGPERFORMED BY: LabCoUniversity HospitalRttogp5529 [facility] [id number] (33869) ALT (SGPT) 15 [iU]/L (Normal) Range: 0-32 AST (SGOT) 16 [iU]/L (Normal) Range: 0-40 Alkaline Phosphatase, S 67 [iU]/L (Normal) Range: 39-117 Bilirubin, Total 0.4 mg/dL (Normal) Range: 0.0-1.2 A/G Ratio 2.1 (Normal) Range: 1.1-2.5 Globulin, Total 2.0 g/dL (Normal) Range: 1.5-4.5 Albumin, Serum 4.2 g/dL (Normal) Range: 3.5-4.8 Protein, Total, Serum 6.2 g/dL (Normal) Range: 6.0-8.5 Calcium, Serum 9.1 mg/dL (Normal) Range: 8.7-10.3 Carbon Dioxide, Total 25 mmol/L (Normal) Range: 18-29 Chloride, Serum 102 mmol/L (Normal) Range: 97-108 Potassium, Serum 4.2 mmol/L (Normal) Range: 3.5-5.2 Sodium, Serum 142 mmol/L (Normal) Range: 134-144 BUN/Creatinine Ratio 21 (Normal) Range: 11-26 eGFR If Africn Am 97 mL/min/1.73 (Normal) eGFR If NonAfricn Am 84 mL/min/1.73 (Normal) Creatinine, Serum 0.70 mg/dL (Normal) Range: 0.57-1.00 BUN 15 mg/dL (Normal) Range: 8-27 Glucose, Serum 89 mg/dL (Normal) Range: 65-99 :43 LIPID PANEL (94453) Comments: PATIENT WAS FASTINGPERFORMED BY: [facility] Xrlavz3470 [facility] [id number] LDL/HDL Ratio 1.7 {ratio_units} (Normal) Range: 0.0-3.2 Comments: LDL/HDL Ratio Men Women 1/2 Avg.Risk 1.0 1.5 Av g.Risk 3.6 3.2 2X Avg.Risk 6.2 5.0 3X Avg.Risk 8.0 6.1 LDL Cholesterol Calc 79 mg/dL (Normal) Range: 0-99 VLDL Cholesterol Alexander 23 mg/dL (Normal) Range: 5-40 HDL Cholesterol 47 mg/dL (Normal) Comments: According to ATP-III Guidelines, HDL-C >59 mg/dL is considered anegative risk factor for CHD. Triglycerides 115 mg/dL (Normal) Range: 0-149 Cholesterol, Total 149 mg/dL (Normal) Range: 100-199 82-Jmp-269067:55 Anticardiolip Ab, IgA/G/M, Comments: PATIENT NOT FASTINGPERFORMED BY: [facility] Znbbso8992 [facility] [id number] BY: [facility] Rsfcmibvdb8141 [facility] [id number] BY: TG [facility] Qn [id number] [facility] [id number] Anticardiolipin Ab,IgA,Qn <9 {APL_U/mL} (Normal) Range: 0-11 Comments: Negative: <12 Indeterminate: 12 - 20 Low-Med Positive: >20 - 80 High Positive: >80 Anticardiolipin Ab,IgM,Qn <9 {MPL_U/mL} (Normal) Range: 0-12 Comments: Negative: <13 Indeterminate: 13 - 20 Low-Med Positive: >20 - 80 High Positive: >80 Anticardiolipin Ab,IgG,Qn <9 {GPL_U/mL} (Normal) Range: 0-14 Comments: Negative: <15 Indeterminate: 15 - 20 Low-Med Positive: >20 - 80 High Positive: >80 97-Mbc-499699:55 Antinuclear Antibodies Comments: PATIENT NOT FASTINGPERFORMED BY: CB [facility] Rrboxu1313 [address]riz[address] RoadDublin [place] [id number] BY: [facility] [address] [id number] BY: TG [facility] Direct [id number] [facility] [id number] SURI Direct Negative (Normal) 61-Pkc-662806:55 Antithrombin III, Comments: PATIENT NOT FASTINGPERFORMED BY: CB [facility] Wtczao2377 [address] RoadDublin [place] [id number] BY: [facility] [address] [id number] BY: TG [facility] Func/Immunol [id number] [facility] [id number] Antithrombin Antigen 85 % (Normal) Range: 75-130 Antithrombin Activity 100 % (Normal) Range: 75-135 C-Reactive Protein, <0.3 mg/L (Normal) Comments: PATIENT NOT FASTINGPERFORMED BY: CB [facility] Sdexcm6389 [address]rizales RoadDublin [place] [id number] BY: [facility] [address] [id number] BY: TG [facility] 2:55 Quant [id number] [facility] [id number] Range: 0.0-4.9 Factor II Activity 88 % (Normal) Comments: PATIENT NOT FASTINGPERFORMED BY: CB [facility] Tyhomn7222 [address]rizales RoadDublin [place] [id number] BY: [facility] [address] [id number] BY: TG [facility] 2:55 LVO6327 [facility] [id number] Range: 75-130 27-Buj-156233:55 Factor V Leiden Mutation Comments: PATIENT NOT FASTINGPERFORMED BY: CB [facility] Ylezxd9503 [address] RoadDublin [place] [id number] BY: [facility] [place] [address] [facility] [id number] BY: [facility] [id number] [facility]UN[facility] [id number] Factor V Leiden FVNEG3 (Normal) Comments: Result: Negative (no mutation found) .Factor V Leiden is a specific mutation (R506Q) in the factorV gene that is associated with an increased r isk of venousthrombosis. Factor V Leiden is more resistant toinactivation by activated protein C. As a result, factor Vpersists in the circulation leading to a mild hyper-coagulable state. The Leiden mutation accounts for 90% -95% of APC resistance. Factor V Leiden has been reported inpatients with deep vein thrombosis, pulmonary embolus,central retinal vein occlusion, cerebral sinus thrombosisand hepatic vein thrombosis. Other risk factors to beconsidered in the workup for venous thrombosis include [id number] mutation in the factor II (prothrombin) gene,protein S and C deficiency, and antithromb in deficiencies.Anticardiolipin antibody and lupus anticoagulant analysismay be appropriate for certain patients, as well ashomocysteine levels. .Contact your local [facility] for information on how to orderadditional testing if desired. .Genetic counselors are available for health care* providers to discuss results at [phone] .Methodology:DNA analysis of the Factor V gene was performed by allele-specific PCR followed by gel electrophoresis. The diagnosticsensitivity and specificity is >99% for both. Molecular-based testing is highly accurate, but as in any laboratorytest, diagnostic errors may occur. All test results must becombined with clinical information for the most accurateinterpretation. .References:Katharine Lew (1996). Clin Lab Med 16: 169-186. .Korey Mccall, Mauricio Cantor PhDAgustina Hsu, PhDCassie Hearn MDVal V Zvereff, MD, PhDS MARQUISE Gonsales, PhD . 72-Siv-978652:55 Protein C Deficiency Comments: PATIENT NOT FASTINGPERFORMED BY: LabCoUniversity HospitalBosjur4486 [facility] [id number] BY: [facility] [address] [id number] BY: LabValnevarp Profile [id number] [facility] [id number] Protein C-Functional 134 % (Normal) Range: 74-151 Protein C Antigen 97 % (Normal) Range: 70-140 21-Eoo-412380:55 Protein Electro, Random Comments: PATIENT NOT FASTINGPERFORMED BY: [facility] Ephuem8268 [facility] [id number] BY: [facility] [address] [id number] BY: LabValneva Urine ZIE8584 [facility] [id number] Please note: SPRCS (Normal) Comments: Protein electrophoresis scan will follow via computer, mail, orcourier delivery. M-Peter, % Not Observed % (Normal) Gamma Globulin, U 18.3 % (Normal) Beta Globulin, U 24.9 % (Normal) Vutmp-9-Jvtbrrhu, U 17.0 % (Normal) Jxpek-4-Oxzorbun, U 6.3 % (Normal) Albumin, U 33.5 % (Normal) Protein,Total,Urine 5.6 mg/dL (Normal) Range: 0.0-15.0 [id number] Protein Electro.,S Comments: PATIENT NOT FASTINGPERFORMED BY: PLASTIQ [facility] [id number] [facility] [id number] BY: [facility] [address] [id number] BY: [facility] [id number] [facility] [id number] Please note: SPRCS (Normal) Comments: Protein electrophoresis scan will follow via computer, mail, orcourier delivery. A/G Ratio 1.5 (Normal) Range: 0.7-2.0 Globulin, Total 2.7 g/dL (Normal) Range: 2.0-4.5 M-Peter Not Observed g/dL (Normal) Gamma Globulin 1.0 g/dL (Normal) Range: 0.5-1.6 Beta Globulin 0.9 g/dL (Normal) Range: 0.6-1.3 Xuqwp-9-Jturwsyt 0.6 g/dL (Normal) Range: 0.4-1.2 Xywhm-9-Njnlfrzf 0.2 g/dL (Normal) Range: 0.1-0.4 Albumin 4.1 g/dL (Normal) Range: 3.2-5.6 Protein, Total, Serum 6.8 g/dL (Normal) Range: 6.0-8.5 [id number] Protein S Panel Comments: PATIENT NOT FASTINGPERFORMED BY: CB [facility] [id number]Dublin [place] [id number] BY: [address]Co[address] [id number] BY: [facility]Co[address] [id number] Protein S-Functional 100 % (Normal) Range: 60-145 Protein S, Free 112 % (Normal) Range: 56-124 Protein S, Total 120 % (Normal) Range: 58-150 99-Opz-477517:55 Rheumatoid Arthritis Comments: PATIENT NOT FASTINGPERFORMED BY: [facility] Kvwdag1697 [address] [place] [id number] BY: LabValneva[address] [id number] BY: [facility]Co[facility] BED0546 [facility] [id number] RA Latex Turbid. 6.4 {IU/mL} Range: 0.0-13.9 (Normal) 62-Yzf-24186 Sedimentation 5 mm/h (Normal) Comments: PATIENT NOT FASTINGPERFORMED BY: [facility] Tscxqe7358 [address] imedoDublin [place] [id number] BY: [address] [id number] BY: [facility] 2:55 Rate-Westergren XSQ6441 [facility] [id number] Range: 0-40 7-Mow-628910:10 Vitamin D Hydroxy (03927) Comments: PATIENT NOT FASTINGPERFORMED BY: CB [facility] Plcukv8528 Carrizales RoadDublin [place] [id number] Vitamin D, 25-Hydroxy 56.5 ng/mL (Normal) Range: 30.0-100.0 Comments: Vitamin D deficiency has been defined by the [place] of[place] and an Endocrine Society practice guideline as alevel of serum 25-OH vitamin D less than 20 ng/mL (1,2).The Endocrine Society went on to further define vitamin Dinsufficiency as a level between 21 and 29 ng/mL (2).1. IOM ([place]). 2010. Dietary reference intakes for calcium and D. [place]: The National Academies Press.2. Freddy MF, Pineda EUBANKS, Brody KHOURY, et al. Evaluation, treatment, and prevention of vitamin D deficiency: an Endocrine Society clinical practice guideline. JCEM. 2010; 96(7):1911-30. 0-Gyp-131459:10 VITAMIN B-12 (CYANOCOBALAMIN) Comments: PATIENT NOT FASTINGPERFORMED BY: [employer] ([place])[address] [facility] [id number] (89541) Vitamin B12 455 pg/mL (Normal) Range: 211-946 7-Eot-846242:10 TSH (94999) Comments: PATIENT NOT FASTINGPERFORMED BY: TravelAIrp Siyudg9146 [employer] EnergyMaria [facility] [id number] TSH 1.870 {uIU/mL} (Normal) Range: 0.450-4.500 7-Xxp-791527:10 EBV Panel (23187) Comments: PATIENT NOT FASTINGPERFORMED BY: TravelAIrp Qexhit8551 [facility] [id number] Information: [id number] Interpretation: SPRCS (Normal) Comments: EBV Interpretation Chart . Interpretation EBV-IgM VCA-IgG EBNA-IgG EA(D)-IgG . EBV Seronegative - - - - Early Phase + - - - Acute Primary + + - +or- Infection Convalescence/Past - + + +or- Infection Reactivated +or- + + + Infection + Antibody Present - Antibody Absent EBV Nuclear Antigen Ab, IgG 297.0 U/mL (Abnormal) Range: 0.0-17.9 Comments: Negative <18.0 Equivocal 18.0 - 21.9 Positive >21.9 EBV Ab VCA, IgG 165.0 U/mL (Abnormal) Range: 0.0-17.9 Comments: Negative <18.0 Equivocal 18.0 - 21.9 Positive >21.9 EBV Early Antigen Ab, IgG 26.9 U/mL (Abnormal) Range: 0.0-8.9 Comments: Hepatitis A, Hepatitis C and HIV antibodies may cross-reactwith this assay. Negative < 9.0 Equivoc al 9.0 - 10.9 Positive >10.9 EBV Ab VCA, IgM <36.0 U/mL (Normal) Range: 0.0-35.9 Comments: Negative <36.0 Equivocal 36.0 - 43.9 Positive >43.9 :47 HgA1C , Office (47756) HgA1C , Office 5.8 % (Normal) Range: 4.6 - 7.1 05-Man-497449:38 Microscopic Examination Comments: PATIENT WAS FASTINGPERFORMED BY: [facility]istlestopMaria [facility] [id number] Bacteria Few (Normal) Mucus Threads Present (Normal) Epithelial Cells (non renal) 0-10 {/hpf} (Normal) Range: 0 - 10 RBC None seen {/hpf} (Normal) Range: 0 - 2 WBC 0-5 {/hpf} (Normal) Range: 0 - 5 89-Uce-795625:38 MICROALBUMIN: CREATININE RATIO Comments: PATIENT WAS FASTINGPERFORMED BY: [facility]noteC[facility] [id number] (66524) AND (99608) Creatinine, Urine 59.0 mg/dL (Normal) Range: 15.0-278.0 Microalb/Creat Ratio 8.3 {mg/g_creat} (Normal) Range: 0.0-30.0 Microalbumin, Urine 4.9 ug/mL (Normal) Range: 0.0-17.0 24-Equ-498013:38 URINALYSIS, W/ MICRO (01175) Comments: PATIENT WAS FASTINGPERFORMED BY: [facility]noteC[facility] [id number] Microscopic Examination MICRON (Normal) Comments: Microscopic follows if indicated. Microscopic Examination See below: (Normal) Comments: Microscopic was indicated and was performed. Nitrite, Urine Negative (Normal) Urobilinogen,Semi-Qn 0.2 mg/dL (Normal) Range: 0.0-1.9 Bilirubin Negative (Normal) Occult Blood Negative (Normal) Ketones Negative (Normal) Glucose Negative (Normal) Protein Negative (Normal) Appearance Clear (Normal) WBC Esterase Negative (Normal) pH 7.5 (Normal) Range: 5.0-7.5 Urine-Color Yellow (Normal) Specific Brandon 1.016 (Normal) Range: 1.005-1.030 33-Rdh-745294:38 CBC WITH MANUAL DIFF Comments: PATIENT WAS FASTINGPERFORMED BY: [facility]Corewell [facility]6370 [facility] [id number] Information: [id number] (03176) Immature Grans (Abs) 0.0 {x10E3/uL} (Normal) Range: 0.0-0.1 Immature Granulocytes 0 % (Normal) Range: 0-2 Baso (Absolute) 0.0 {x10E3/uL} (Normal) Range: 0.0-0.2 Eos (Absolute) 0.1 {x10E3/uL} (Normal) Range: 0.0-0.4 Monocytes(Absolute) 0.4 {x10E3/uL} (Normal) Range: 0.1-0.9 Lymphs (Absolute) 1.8 {x10E3/uL} (Normal) Range: 0.7-3.1 Neutrophils (Absolute) 2.5 {x10E3/uL} (Normal) Range: 1.4-7.0 Basos 0 % (Normal) Range: 0-3 Eos 2 % (Normal) Range: 0-5 Monocytes 8 % (Normal) Range: 4-12 Lymphs 37 % (Normal) Range: 14-46 Neutrophils 53 % (Normal) Range: 40-74 Platelets 172 {x10E3/uL} (Normal) Range: 150-379 RDW 13.8 % (Normal) Range: 12.3-15.4 MCHC 34.3 g/dL (Normal) Range: 31.5-35.7 MCH 30.9 pg (Normal) Range: 26.6-33.0 MCV 90 fL (Normal) Range: 79-97 Hematocrit 40.2 % (Normal) Range: 34.0-46.6 Hemoglobin 13.8 g/dL (Normal) Range: 11.1-15.9 RBC 4.47 {x10E6/uL} (Normal) Range: 3.77-5.28 WBC 4.8 {x10E3/uL} (Normal) Range: 3.4-10.8 :38 LIPID PANEL (31390) Comments: PATIENT WAS FASTINGPERFORMED BY: [employer] Te[employer]70 [facility] [id number] LDL/HDL Ratio 1.9 {ratio_units} (Normal) Range: 0.0-3.2 LDL Cholesterol Calc 83 mg/dL (Normal) Range: 0-99 VLDL Cholesterol Alexander 22 mg/dL (Normal) Range: 5-40 HDL Cholesterol 43 mg/dL (Normal) Comments: According to ATP-III Guidelines, HDL-C >59 mg/dL is considered anegative risk factor for CHD. Triglycerides 110 mg/dL (Normal) Range: 0-149 Cholesterol, Total 148 mg/dL (Normal) Range: 100-199 :38 METABOLIC PANEL, COMPREHENSIVE Comments: PATIENT WAS FASTINGPERFORMED BY: [employer] ([place])6370 [facility] [id number] (96959) ALT (SGPT) 12 [iU]/L (Normal) Range: 0-32 AST (SGOT) 16 [iU]/L (Normal) Range: 0-40 Alkaline Phosphatase, S 69 [iU]/L (Normal) Range: 39-117 Bilirubin, Total 0.4 mg/dL (Normal) Range: 0.0-1.2 A/G Ratio 2.0 (Normal) Range: 1.1-2.5 Globulin, Total 2.1 g/dL (Normal) Range: 1.5-4.5 Albumin, Serum 4.2 g/dL (Normal) Range: 3.5-4.8 Protein, Total, Serum 6.3 g/dL (Normal) Range: 6.0-8.5 Calcium, Serum 9.2 mg/dL (Normal) Range: 8.6-10.2 Carbon Dioxide, Total 27 mmol/L (Normal) Range: 18-29 Chloride, Serum 100 mmol/L (Normal) Range: 97-108 Potassium, Serum 4.4 mmol/L (Normal) Range: 3.5-5.2 Sodium, Serum 141 mmol/L (Normal) Range: 134-144 BUN/Creatinine Ratio 18 (Normal) Range: 11-26 eGFR If Africn Am 91 mL/min/1.73 (Normal) eGFR If NonAfricn Am 79 mL/min/1.73 (Normal) Creatinine, Serum 0.74 mg/dL (Normal) Range: 0.57-1.00 BUN 13 mg/dL (Normal) Range: 8-27 Glucose, Serum 98 mg/dL (Normal) Range: 65-99 97-Hos-965588:43 URINE TEA CULTURE (KOLBY Comments: PATIENT NOT FASTINGPERFORMED BY: LabCoUniversity HospitalAgqynk6802 [facility] [id number] Information: SRC:VALENTINA [id number] COL COUNT) (41177) Result 1 BETAGB (Abnormal) Comments: Beta hemolytic Streptococcus, group B25,000- 50,000 colony forming units per mLPenicillin and ampicillin are drugs of choice for treatment ofbeta-hemolytic streptococcal infections. Susceptibility testin g ofpenicillins and other beta-lactam agents approved by the FDA fortreatment of beta-hemolytic streptococcal infections need not beperformed routinely because nonsusceptible isolates are extremelyrare in any beta-hemolytic streptococcus and have not been reportedfor Streptococcus pyogenes (group A). (CLSI 2011) Urine Final report (Abnormal) Culture,Comprehensive 4-Rrm-950562:47 Urinalysis, Office (49654) UA - LEUKOCYTE ESTERASE Small (Normal) UA - NITRITE Negative (Normal) URINE UROBILINGN KOLBY TIMED Normal mg/dL (Normal) UA - PROTEIN 30 mg/dL (Normal) UA - PH 5 (Abnormal) UA - BLOOD Negative (Normal) UA - SPECIFIC GRAVITY 1.025 (Normal) UA - KETONES Negative mg/dL (Normal) UA - BILIRUBIN Small (Normal) UA - GLUCOSE Negative (Normal) 4-Mhj-661613:43 HgA1C , Office (58964) HgA1C , Office 5.9 % (Normal) Range: 4.6 - 7.1 4-Fnn-908167:43 Blood Glucose , Office (60093) Blood Glucose , Office 137 (Normal) 2-Wrl-041531:00 URINE TEA CULTURE-IDENTIFICATN Comments: PATIENT NOT FASTINGPERFORMED BY: [facility]6370 [facility] [id number] Information: [id number] (00039) Result 1 BETAGB (Abnormal) Comments: Beta hemolytic Streptococcus, group B25,000- 50,000 colony forming units per mLPenicillin and ampicillin are drugs of choice for treatment ofbeta-hemolytic streptococcal infections. Susceptibility testin g ofpenicillins and other beta-lactam agents approved by the FDA fortreatment of beta-hemolytic streptococcal infections need not beperformed routinely because nonsusceptible isolates are extremelyrare in any beta-hemolytic streptococcus and have not been reportedfor Streptococcus pyogenes (group A). (CLSI 2011) Urine Final report (Abnormal) Culture,Comprehensive 7-Epe-811528:04 Urinalysis, Office (43938) UA - LEUKOCYTE ESTERASE Small (Normal) UA - NITRITE Negative (Normal) URINE UROBILINGN KOLBY TIMED Normal mg/dL (Normal) UA - PROTEIN Negative mg/dL (Normal) UA - PH 6.5 (Normal) UA - BLOOD non-hemolyzed trace (Normal) UA - SPECIFIC GRAVITY 1.015 (Normal) UA - KETONES Negative mg/dL (Normal) UA - BILIRUBIN Negative (Normal) UA - GLUCOSE Negative (Normal) 79-Rgu-515418:47 LIPID PANEL (60144) Comments: PATIENT WAS FASTINGPERFORMED BY: Zero MotorcyclesCorewell Health [facility]6370 [facility] [id number] LDL/HDL Ratio 2.0 {ratio_units} (Normal) Range: 0.0-3.2 LDL Cholesterol Calc 88 mg/dL (Normal) Range: 0-99 VLDL Cholesterol Alexander 19 mg/dL (Normal) Range: 5-40 HDL Cholesterol 45 mg/dL (Normal) Comments: According to ATP-III Guidelines, HDL-C >59 mg/dL is considered anegative risk factor for CHD. Cholesterol, Total 152 mg/dL (Normal) Range: 100-199 Triglycerides 95 mg/dL (Normal) Range: 0-149 28-Gjc-875979:47 CBC WITH MANUAL DIFF Comments: PATIENT WAS FASTINGPERFORMED BY: [place] 2395870 [facility] [id number] Information: [id number],2ND ORDER NO DRAW F EE (72870) Immature Grans (Abs) 0.0 {x10E3/uL} (Normal) Range: 0.0-0.1 Immature Granulocytes 0 % (Normal) Range: 0-2 Baso (Absolute) 0.0 {x10E3/uL} (Normal) Range: 0.0-0.2 Eos (Absolute) 0.1 {x10E3/uL} (Normal) Range: 0.0-0.4 Monocytes(Absolute) 0.5 {x10E3/uL} (Normal) Range: 0.1-0.9 Lymphs (Absolute) 2.0 {x10E3/uL} (Normal) Range: 0.7-3.1 Neutrophils (Absolute) 3.1 {x10E3/uL} (Normal) Range: 1.4-7.0 Basos 1 % (Normal) Range: 0-3 Eos 2 % (Normal) Range: 0-5 Monocytes 9 % (Normal) Range: 4-12 Lymphs 34 % (Normal) Range: 14-46 Neutrophils 54 % (Normal) Range: 40-74 Platelets 174 {x10E3/uL} (Normal) Range: 155-379 RDW 13.9 % (Normal) Range: 12.3-15.4 MCHC 32.8 g/dL (Normal) Range: 31.5-35.7 MCH 30.4 pg (Normal) Range: 26.6-33.0 MCV 93 fL (Normal) Range: 79-97 Hematocrit 43.0 % (Normal) Range: 34.0-46.6 Hemoglobin 14.1 g/dL (Normal) Range: 11.1-15.9 RBC 4.64 {x10E6/uL} (Normal) Range: 3.77-5.28 WBC 5.8 {x10E3/uL} (Normal) Range: 3.4-10.8 89-Run-856691:47 METABOLIC PANEL, COMPREHENSIVE Comments: PATIENT WAS FASTINGPERFORMED BY: LabCoUniversity HospitalHvfzgq4971 [facility] [id number] (04598) ALT (SGPT) 16 [iU]/L (Normal) Range: 0-32 AST (SGOT) 19 [iU]/L (Normal) Range: 0-40 Alkaline Phosphatase, S 76 [iU]/L (Normal) Range: 39-117 Bilirubin, Total 0.4 mg/dL (Normal) Range: 0.0-1.2 A/G Ratio 2.0 (Normal) Range: 1.1-2.5 Globulin, Total 2.1 g/dL (Normal) Range: 1.5-4.5 Albumin, Serum 4.3 g/dL (Normal) Range: 3.5-4.8 Protein, Total, Serum 6.4 g/dL (Normal) Range: 6.0-8.5 Calcium, Serum 9.2 mg/dL (Normal) Range: 8.6-10.2 Carbon Dioxide, Total 25 mmol/L (Normal) Range: 19-28 Chloride, Serum 103 mmol/L (Normal) Range: 97-108 Potassium, Serum 4.2 mmol/L (Normal) Range: 3.5-5.2 Sodium, Serum 141 mmol/L (Normal) Range: 134-144 BUN/Creatinine Ratio 17 (Normal) Range: 11-26 eGFR If Africn Am 96 mL/min/1.73 (Normal) eGFR If NonAfricn Am 83 mL/min/1.73 (Normal) BUN 12 mg/dL (Normal) Range: 8-27 Creatinine, Serum 0.71 mg/dL (Normal) Range: 0.57-1.00 Glucose, Serum 94 mg/dL (Normal) Range: 65-99 86-Atd-835660:13 URINE TEA CULTURE (KOLBY Comments: PATIENT NOT FASTINGPERFORMED BY: [facility] Rsdttt1753 [facility] [id number] Information: SRC:UR [id number] COL COUNT) (47546) Result 1 BETAGB (Abnormal) Comments: Beta hemolytic Streptococcus, group BGreater than 100,000 colony forming units per mLPenicillin and ampicillin are drugs of choice for treatment ofbeta-hemolytic streptococcal infections. Susceptibility testing ofpenicillins and other beta-lactam agents approved by the FDA fortreatment of beta-hemolytic streptococcal infections need not beperformed routinely because nonsusceptible isolates are extreme lyrare in any beta-hemolytic streptococcus and have not been reportedfor Streptococcus pyogenes (group A). (CLSI 2011) Urine Final report (Abnormal) Culture,Comprehensive 90-Btd-180977:11 Urinalysis, Office (38002) UA - LEUKOCYTE ESTERASE Small (Normal) UA - NITRITE Negative (Normal) URINE UROBILINGN KOLBY TIMED Normal mg/dL (Normal) UA - PROTEIN Negative mg/dL (Normal) UA - PH 7 (Normal) UA - BLOOD Non Hemolyzed Moderate (Normal) UA - SPECIFIC GRAVITY 1.015 (Normal) UA - KETONES Negative mg/dL (Normal) UA - BILIRUBIN Negative (Normal) UA - GLUCOSE Negative (Normal) 12-Wkb-368093:47 Phosphorus (60057) Comments: 2 weeks; PATIENT NOT FASTINGPERFORMED BY: [employer]70 [address] imedoCape Fear [facility] [id number] Information: [id number] Phosphorus, Serum 3.7 mg/dL (Normal) Range: 2.5-4.5 58-Pou-763292:36 URINE TEA CULTURE-IDENTIFICATN Comments: PATIENT NOT FASTINGPERFORMED BY: [employer]70 [employer] EnergyMaria [facility] [id number] Information: SRC: URINE (92998) Result 1 BETAGB (Normal) Comments: Beta hemolytic Streptococcus, group B50,000- 100,000 colony forming units per mLPenicillin and ampicillin are drugs of choice for treatment ofbeta-hemolytic streptococcal infections. Susceptibility testi ng ofpenicillins and other beta-lactam agents approved by the FDA fortreatment of beta-hemolytic streptococcal infections need not beperformed routinely because nonsusceptible isolates are extremelyrare in any beta-hemolytic streptococcus and have not been reportedfor Streptococcus pyogenes (group A). (CLSI 2011) Urine Final report (Normal) Culture,Comprehensive 44-Zxf-291217:02 Urinalysis, Office (54295) UA - LEUKOCYTE ESTERASE Trace (Normal) UA - NITRITE Negative (Normal) URINE UROBILINGN KOLBY TIMED Normal mg/dL (Normal) UA - PROTEIN Negative mg/dL (Normal) UA - PH 7 (Normal) UA - BLOOD Negative (Normal) UA - SPECIFIC GRAVITY 1.010 (Normal) UA - KETONES Negative mg/dL (Normal) UA - BILIRUBIN Negative (Normal) UA - GLUCOSE Negative (Normal) 63-Pwi-689121:16 Microscopic Examination Comments: PATIENT NOT FASTINGPERFORMED BY: TravelAIrp Yqtwxg6988 [facility] [id number] Bacteria Few (Normal) Mucus Threads Present (Normal) Epithelial Cells (non renal) 0-10 {/hpf} (Normal) Range: 0 - 10 RBC 0-3 {/hpf} (Normal) Range: 0 - 3 WBC 6-10 {/hpf} (Abnormal) Range: 0 - 5 :45 Protein Electro, Random Urine Comments: PERFORMED BY: WhistlestopMaria [facility] [id number] M-Peter, % Not Observed % (Normal) Please note: SPRCS (Normal) Comments: Protein electrophoresis scan will follow via computer, mail, orcourier delivery. Beta Globulin, U 27.1 % (Normal) Gamma Globulin, U 31.6 % (Normal) Ljarc-0-Jwczqajv, U 4.3 % (Normal) Petlq-2-Xrrbzphr, U 15.2 % (Normal) Albumin, U 21.8 % (Normal) Protein,Total,Urine 5.5 mg/dL (Normal) Range: 0.0-15.0 :45 Protein Electro.,S Comments: PERFORMED BY: WhistlestopMaria [facility] [id number] Please note: SPRCS (Normal) Comments: Protein electrophoresis scan will follow via computer, mail, orcourier delivery. A/G Ratio 1.6 (Normal) Range: 0.7-2.0 Globulin, Total 2.5 g/dL (Normal) Range: 2.0-4.5 Beta Globulin 0.8 g/dL (Normal) Range: 0.6-1.3 Gamma Globulin 0.9 g/dL (Normal) Range: 0.5-1.6 M-Peter Not Observed g/dL (Normal) Xenjz-7-Hjuridpq 0.6 g/dL (Normal) Range: 0.4-1.2 Tsyot-2-Fmmuwtqe 0.2 g/dL (Normal) Range: 0.1-0.4 Albumin 4.1 g/dL (Normal) Range: 3.2-5.6 Protein, Total, Serum 6.6 g/dL (Normal) Range: 6.0-8.5 23-Kgw-146815:25 URINALYSIS, W/ MICRO Comments: PATIENT NOT FASTINGPERFORMED BY: TalknoteDublin [place] [id number] Information: [id number] (30983) Microscopic Examination See below: (Normal) Nitrite, Urine Negative (Normal) Bilirubin Negative (Normal) Urobilinogen,Semi-Qn 0.2 mg/dL (Normal) Range: 0.0-1.9 Occult Blood Negative (Normal) Ketones Negative (Normal) Glucose Negative (Normal) Protein Negative (Normal) WBC Esterase Trace (Abnormal) Appearance Clear (Normal) Urine-Color Yellow (Normal) pH 6.5 (Normal) Range: 5.0-7.5 Specific Brandon 1.019 (Normal) Range: 1.005-1.030 91-Lsu-661288:25 URINE TEA CULTURE (KOLBY COL Comments: PATIENT NOT FASTINGPERFORMED BY: [facility]6370 [facility] [id number] COUNT) (33520) Result 1 BETAGB (Normal) Comments: Beta hemolytic Streptococcus, group B25,000- 50,000 colony forming units per mLPenicillin and ampicillin are drugs of choice for treatment ofbeta-hemolytic streptococcal infections. Susceptibility testin g ofpenicillins and other beta-lactam agents approved by the FDA fortreatment of beta-hemolytic streptococcal infections need not beperformed routinely because nonsusceptible isolates are extremelyrare in any beta-hemolytic streptococcus and have not been reportedfor Streptococcus pyogenes (group A). (CLSI 2011) Urine Final report (Normal) Culture,Comprehensive 2-Frw-592192:13 URINE CALCIUM KOLBY TIMED Comments: PATIENT NOT FASTINGPERFORMED BY: [facility]6370 [facility] [id number] Information: [id number], START TIME: 10-27-13 AT 9 AMEND TIME 10/28/13 AT 7 AM 24 Hour (27349) Calcium, Urine 24hr 199.5 {mg/24_hr} (Normal) Range: 100.0-300.0 Calcium, Urine 21.0 mg/dL (Normal) 23-Ciz-889437:15 PARATHORMONE (87720) Comments: PERFORMED BY: Zero MotorcyclesSsm [facility] Zsdgml8310 [facility] [id number] PTH, Intact 20 pg/mL (Normal) Range: 15-65 09-Nec-704374:15 PHOSPHORUS (72139) Comments: PERFORMED BY: Zero MotorcyclesCorewell Health [facility]6370 [facility] [id number] Phosphorus, Serum 4.6 mg/dL (Abnormal) Range: 2.5-4.5 07-Yon-159632:15 TSH (94803) Comments: PERFORMED BY: Zero MotorcyclesCorewell Health [facility]6370 [facility] [id number] TSH 2.710 {uIU/mL} (Normal) Range: 0.450-4.500 35-Vst-905185:57 FECAL OCCULT- Tubes sent home (70392) FECAL OCCULT HGB ASSAY, QUAL, 1-3 SIMULTANEOU negative (Normal) 84-Dlh-593928:50 HgA1C , Office (49060) HgA1C , Office 6.1 % (Normal) Range: 4.6 - 7.1 :26 LIPID PANEL (70549) Comments: PATIENT WAS FASTINGPERFORMED BY: VenyoUniversity HospitalBgeulm8160 [facility] [id number] LDL/HDL Ratio 2.1 {ratio_units} (Normal) Range: 0.0-3.2 LDL Cholesterol Calc 104 mg/dL (Abnormal) Range: 0-99 HDL Cholesterol 50 mg/dL (Normal) Comments: According to ATP-III Guidelines, HDL-C >59 mg/dL is considered anegative risk factor for CHD. VLDL Cholesterol Alexander 22 mg/dL (Normal) Range: 5-40 Triglycerides 109 mg/dL (Normal) Range: 0-149 Cholesterol, Total 176 mg/dL (Normal) Range: 100-199 :26 MICROALBUMIN: CREATININE RATIO Comments: PATIENT WAS FASTINGPERFORMED BY: Zero MotorcyclesCorewell Health [facility]6370 [facility] [id number] (03965) AND (90383) Microalb/Creat Ratio 13.1 {mg/g_creat} (Normal) Range: 0.0-30.0 Creatinine, Urine 70.1 mg/dL (Normal) Range: 15.0-278.0 Microalbumin, Urine 9.2 ug/mL (Normal) Range: 0.0-17.0 :26 METABOLIC PANEL, Comments: PATIENT WAS FASTINGPERFORMED BY: Venyo Qlrnyx7077 [facility] [id number] Information: [id number] [facility] (57395) ALT (SGPT) 17 [iU]/L (Normal) Range: 0-32 AST (SGOT) 18 [iU]/L (Normal) Range: 0-40 Alkaline Phosphatase, S 80 [iU]/L (Normal) Range: 39-117 Bilirubin, Total 0.5 mg/dL (Normal) Range: 0.0-1.2 A/G Ratio 1.7 (Normal) Range: 1.1-2.5 Globulin, Total 2.6 g/dL (Normal) Range: 1.5-4.5 Albumin, Serum 4.3 g/dL (Normal) Range: 3.5-4.8 Protein, Total, Serum 6.9 g/dL (Normal) Range: 6.0-8.5 Calcium, Serum 9.4 mg/dL (Normal) Range: 8.6-10.2 Carbon Dioxide, Total 23 mmol/L (Normal) Range: 19-28 Chloride, Serum 102 mmol/L (Normal) Range: 97-108 Potassium, Serum 4.1 mmol/L (Normal) Range: 3.5-5.2 Sodium, Serum 140 mmol/L (Normal) Range: 134-144 BUN/Creatinine Ratio 26 (Normal) Range: 11-26 eGFR If Africn Am 85 mL/min/1.73 (Normal) eGFR If NonAfricn Am 74 mL/min/1.73 (Normal) Creatinine, Serum 0.78 mg/dL (Normal) Range: 0.57-1.00 BUN 20 mg/dL (Normal) Range: 8-27 Glucose, Serum 108 mg/dL (Abnormal) Range: 65-99 :26 Vitamin D Hydroxy (55287) Comments: PATIENT WAS FASTINGPERFORMED BY: VenyoUniversity HospitalOkotzy2560 [facility] [id number] Vitamin D, 25-Hydroxy 57.3 ng/mL (Normal) Range: 30.0-100.0 Comments: Vitamin D deficiency has been defined by the [place] of[place] and an Endocrine Society practice guideline as alevel of serum 25-OH vitamin D less than 20 ng/mL (1,2).The Endocrine Society went on to further define vitamin Dinsufficiency as a level between 21 and 29 ng/mL (2).1. IOM ([place] [employer]). 2010. Dietary reference intakes for calcium and D. [place]: The National Academies Press.2. Freddy MF, Pineda EUBANKS, Brody KHOURY, et al. Evaluation, treatment, and prevention of vitamin D deficiency: an Endocrine Society clinical practice guideline. JCEM. 2010; 96(7):1911-30. 6-Vpm-279477:42 HgA1C , Office (90721) HgA1C , Office 5.6 % (Normal) Range: 4.6 - 7.1 :17 METABOLIC PANEL, Comments: PATIENT WAS FASTINGPERFORMED BY: LabCoUniversity HospitalQogknl2646 [facility] [id number] Information: [id number] COMPREHENSIVE (19821) ALT (SGPT) 25 [iU]/L (Normal) Range: 0-32 AST (SGOT) 27 [iU]/L (Normal) Range: 0-40 Alkaline Phosphatase, S 76 [iU]/L (Normal) Range: 45-108 Bilirubin, Total 0.5 mg/dL (Normal) Range: 0.0-1.2 A/G Ratio 1.6 (Normal) Range: 1.1-2.5 Globulin, Total 2.5 g/dL (Normal) Range: 1.5-4.5 Albumin, Serum 4.1 g/dL (Normal) Range: 3.5-4.8 Protein, Total, Serum 6.6 g/dL (Normal) Range: 6.0-8.5 Calcium, Serum 9.2 mg/dL (Normal) Range: 8.6-10.2 Carbon Dioxide, Total 23 mmol/L (Normal) Range: 19-28 Chloride, Serum 104 mmol/L (Normal) Range: 97-108 Potassium, Serum 4.4 mmol/L (Normal) Range: 3.5-5.2 Sodium, Serum 143 mmol/L (Normal) Range: 134-144 BUN/Creatinine Ratio 20 (Normal) Range: 11-26 eGFR If Africn Am 83 mL/min/1.73 (Normal) eGFR If NonAfricn Am 72 mL/min/1.73 (Normal) Creatinine, Serum 0.80 mg/dL (Normal) Range: 0.57-1.00 BUN 16 mg/dL (Normal) Range: 8-27 Glucose, Serum 94 mg/dL (Normal) Range: 65-99 [id number] LIPID PANEL ([id number]) Comments: PATIENT WAS FASTINGPERFORMED BY: [facility] [id number] [facility] [id number] LDL/HDL Ratio 1.9 {ratio_units} (Normal) Range: 0.0-3.2 LDL Cholesterol Calc 77 mg/dL (Normal) Range: 0-99 VLDL Cholesterol Alexander 24 mg/dL (Normal) Range: 5-40 HDL Cholesterol 40 mg/dL (Normal) Comments: According to ATP-III Guidelines, HDL-C >59 mg/dL is considered anegative risk factor for CHD. Triglycerides 119 mg/dL (Normal) Range: 0-149 Cholesterol, Total 141 mg/dL (Normal) Range: 100-199 04-Hpk-682313:35 BILAT SCRN DIGITAL & CAD Radiology Report See Note Comments: MAMMOGRAPHY - BILATERAL SCREENING REASON FOR EXAM: Female, 77 years old. Routine annual screeningexamination. PERTINENT HISTORY: Non-contributory. TECHNIQUE: Digital examination. Med iolateral ob (Normal) lique (MLO) andcraniocaudad (CC) views of both breasts were obtained. CAD: CAD wasperformed on this study. COMPARISON: 03/08/12 FINDINGS:The breast composition is c om posed of scattered fibroglandular tissuesranging from 25% to 50% of the breast. There are no dominant masses or suspicious calcifications. Benign right-sided calcifications are unchanged. Asymmetric pa renchymaldensities in the upper left breast and outer left breast are unchanged.Tiny benign nodular asymmetric parenchymal density in the subareolar leftbreast is unchanged. IMPRESSION:Stable bilateral screening mammogram. Yearly follow-up recommended. (A) ASSESSMENT CATEGORY:BIRADS Category 2: Benign finding(s). A letter diegoar reyna these resultswill be sent to the patient by the facility within 30 days. Approximately 10% of breast cancers are not detected by mammography. Anormal mammogram should not delay biopsy of a clinica lly suspiciousabnormality. Signed:Alvaro Bajwa M.D.May 20, 2013 at 7:25:00 AM [phone] Signed RU/RU If you are the referring physician and would like to consult with suzette maurer who provided this interpretation, please contact Julisa George at [phone]. If this radiologist is unavailable, youwillbe directed to another radiologist to assist. If you are a patien t with a question regarding this report, pleasecontactyour referring physician directly. Professional Interpretation Provided By: [employer], Phone , These documents conta in legally protected and confidential healthinformation intended only for the use of the individual or entity namedabove. If you are not the intended recipient, you are hereby notifiedthatany disclosure , copying, distribution, or other use of these documents isstrictly prohibited. If you have received this information in error,pleasenotify the sender immediately and arrange for the return or destructi onofthese documents. Dictated on 05/20/13724 by Alvaro BajwaTranscribed on 05/20/13725 by ITS IMPORTSign by Alvaro Bajwa on 05/20/13726 Sign by: Alvaro Bajwa 4-Yhs-639011:29 VITAMIN B-12 (CYANOCOBALAMIN) Comments: PATIENT NOT FASTINGPERFORMED BY: [facility]Co[facility]Ftdhti0093 [facility] [id number] ([id number]) Vitamin B12 395 pg/mL (Normal) Range: 211-946 0-Qyw-528488:29 TSH (76520) Comments: PATIENT NOT FASTINGPERFORMED BY: [facility] Jwoufv5866 [facility] [id number] TSH 2.020 {uIU/mL} (Normal) Range: 0.450-4.500 2-Kax-259648:29 CBC WITH MANUAL DIFF Comments: PATIENT NOT FASTINGPERFORMED BY: [facility] Avceqm2332 [facility] [id number] Information: [id number] ([id number]) Immature Grans (Abs) 0.0 {x10E3/uL} (Normal) Range: 0.0-0.1 Immature Granulocytes 0 % (Normal) Range: 0-2 Baso (Absolute) 0.0 {x10E3/uL} (Normal) Range: 0.0-0.2 Eos (Absolute) 0.1 {x10E3/uL} (Normal) Range: 0.0-0.4 Monocytes(Absolute) 0.7 {x10E3/uL} (Normal) Range: 0.1-1.0 Lymphs (Absolute) 2.2 {x10E3/uL} (Normal) Range: 0.7-4.5 Neutrophils (Absolute) 4.6 {x10E3/uL} (Normal) Range: 1.8-7.8 Basos 0 % (Normal) Range: 0-3 Eos 1 % (Normal) Range: 0-7 Monocytes 10 % (Normal) Range: 4-13 Lymphs 28 % (Normal) Range: 14-46 Neutrophils 61 % (Normal) Range: 40-74 Platelets 210 {x10E3/uL} (Normal) Range: 140-415 RDW 13.8 % (Normal) Range: 12.3-15.4 MCHC 33.2 g/dL (Normal) Range: 31.5-35.7 MCH 30.5 pg (Normal) Range: 26.6-33.0 MCV 92 fL (Normal) Range: 79-97 Hematocrit 41.6 % (Normal) Range: 34.0-46.6 Hemoglobin 13.8 g/dL (Normal) Range: 11.1-15.9 RBC 4.52 {x10E6/uL} (Normal) Range: 3.77-5.28 WBC 7.6 {x10E3/uL} (Normal) Range: 4.0-10.5 2-Qkz-434030:29 EBV Panel (35112) Comments: PATIENT NOT FASTINGPERFORMED BY: [facility]6370 [facility] [id number] Interpretation: SPRCS (Normal) Comments: EBV Interpretation Chart . Interpretation VCA-IgM EA-IgG VCA-IgG NA-ABS . Susceptible - - - - Acute Infection + +or- +or- - Convalescent Phase +or- +or- + + Chronic or Reactivated - + + +or- Old Infection - - +or- + + Antibody Present - Antibody Absent EBV Ab VCA, IgG 8.0 {AI} (Abnormal) Range: 0.0-0.8 Comments: Negative <0.9 Equivocal 0.9 - 1.0 Positive >1.0 EBV Nuclear Antigen Ab, IgG >8.0 {AI} (Abnormal) Range: 0.0-0.8 Comments: Negative <0.9 Equivocal 0.9 - 1.0 Positive >1.0 EBV Early Antigen Ab, IgG 2.7 {AI} (Abnormal) Range: 0.0-0.8 Comments: Negative <0.9 Equivocal 0.9 - 1.0 Positive >1.0 EBV Ab VCA, IgM <0.2 {AI} (Normal) Range: 0.0-0.8 Comments: Negative <0.9 Equivocal 0.9 - 1.0 Positive >1.0 1-Eqb-049841:39 HgA1C , Office (47388) HgA1C , Office 6.2 % (Normal) Range: 4.6 - 7.1 06-Ced-049986:36 Vitamin D Hydroxy (14672) Comments: PATIENT WAS FASTINGPERFORMED BY: [facility]6370 [facility] [id number] Vitamin D, 25-Hydroxy 64.3 ng/mL (Normal) Range: 30.0-100.0 Comments: Vitamin D deficiency has been defined by the [place] of[place] and an Endocrine Society practice guideline as alevel of serum 25-OH vitamin D less than 20 ng/mL (1,2).The Endocrine Society went on to further define vitamin Dinsufficiency as a level between 21 and 29 ng/mL (2).1. IOM ([place] of Medicine). 2010. Dietary reference intakes for calcium and D. [place]: The National Academies Press.2. Freddy MF, Pineda NC, Brody KHOURY, et al. Evaluation, treatment, and prevention of vitamin D deficiency: an Endocrine Society clinical practice guideline. JCEM. 2010; 96(7):1911-30. :36 METABOLIC PANEL, COMPREHENSIVE Comments: PATIENT WAS FASTINGPERFORMED BY: [facility] [id number] ([id number]) ALT (SGPT) 16 [iU]/L (Normal) Range: 0-32 AST (SGOT) 17 [iU]/L (Normal) Range: 0-40 Alkaline Phosphatase, S 79 [iU]/L (Normal) Range: 25-165 Bilirubin, Total 0.4 mg/dL (Normal) Range: 0.0-1.2 A/G Ratio 1.9 (Normal) Range: 1.1-2.5 Globulin, Total 2.2 g/dL (Normal) Range: 1.5-4.5 Albumin, Serum 4.2 g/dL (Normal) Range: 3.5-4.8 Protein, Total, Serum 6.4 g/dL (Normal) Range: 6.0-8.5 Calcium, Serum 9.0 mg/dL (Normal) Range: 8.6-10.2 Carbon Dioxide, Total 22 mmol/L (Normal) Range: 20-32 Chloride, Serum 104 mmol/L (Normal) Range: 97-108 Potassium, Serum 3.8 mmol/L (Normal) Range: 3.5-5.2 Sodium, Serum 141 mmol/L (Normal) Range: 134-144 BUN/Creatinine Ratio 19 (Normal) Range: 11-26 eGFR If Africn Am 93 mL/min/1.73 (Normal) eGFR If NonAfricn Am 81 mL/min/1.73 (Normal) Creatinine, Serum 0.73 mg/dL (Normal) Range: 0.57-1.00 BUN 14 mg/dL (Normal) Range: 8-27 Glucose, Serum 96 mg/dL (Normal) Range: 65-99 :36 LIPID PANEL (96755) Comments: PATIENT WAS FASTINGPERFORMED BY: [place] [id number] LDL/HDL Ratio 2.3 {ratio_units} (Normal) Range: 0.0-3.2 LDL Cholesterol Calc 86 mg/dL (Normal) Range: 0-99 VLDL Cholesterol Alexander 28 mg/dL (Normal) Range: 5-40 HDL Cholesterol 38 mg/dL (Abnormal) Comments: According to ATP-III Guidelines, HDL-C >59 mg/dL is considered anegative risk factor for CHD. Triglycerides 140 mg/dL (Normal) Range: 0-149 Cholesterol, Total 152 mg/dL (Normal) Range: 100-199 4-Efz-957723:14 URINE TEA CULTURE-IDENTIFICATN Comments: PATIENT NOT FASTINGPERFORMED BY: [place] 2395870 [facility] [id number] Information: [id number] ([id number]) Result 1 MUG (Normal) Comments: Mixed urogenital flora8,000 Colonies/mL Urine Culture,Comprehensive Final report (Normal) 02-Oct-20129:47 Urinalysis, Office (00705) UA - BILIRUBIN Negative (Normal) UA - BLOOD Negative (Normal) UA - GLUCOSE Negative (Normal) UA - KETONES Negative mg/dL (Normal) UA - LEUKOCYTE ESTERASE Small (Normal) UA - NITRITE Negative (Normal) UA - PH 7.0 (Normal) UA - PROTEIN Trace mg/dL (Normal) UA - SPECIFIC GRAVITY 1.020 (Normal) URINE UROBILINGN KOLBY TIMED Normal mg/dL (Normal) Comments: 1.0 E.U./dL 23-Yye-450598:49 URINE TEA CULTURE-IDENTIFICATN Comments: PATIENT NOT FASTINGPERFORMED BY: [facility]6370 [facility] [id number] Information: [id number] (85211) Result 2 ECV (Normal) Comments: Escherichia coli, identified by an automated biochemical system.300 Colonies/mL2ND STRAIN S = Susceptible; I = Intermediate; R = Resistant P = Positive; N = Negative MICS are expressed in micrograms per mL Antibiotic RSLT#1 RSLT#2 RSLT#3 RSLT#4Amoxicillin/Clavulanic Acid S IAmpicillin S RCefazo milo S RCefepime S SCeftriaxone S SCefuroxime S SCephalothin I RCiprofloxacin S SESBL N NErtapenem S SGentamicin S RImipenem S SLevofloxacin S SNitrofurantoin S SPiperacillin S RTetracycline S RTobramycin S ITrimethoprim/Sulfa S R Result 1 Escherichia coli Comments: 1,000 Colonies/mL (Normal) Urine Final report (Normal) [facility] 77-Kbi-806964:47 Urinalysis, Office (12626) UA - BILIRUBIN Negative (Normal) UA - BLOOD Hemolyzed Moderate (Normal) UA - GLUCOSE Negative (Normal) UA - KETONES Negative mg/dL (Normal) UA - LEUKOCYTE ESTERASE Small (Normal) UA - NITRITE Negative (Normal) UA - PH 7.0 (Normal) UA - PROTEIN Negative mg/dL (Normal) UA - SPECIFIC GRAVITY 1.015 (Normal) URINE UROBILINGN KOLBY TIMED Normal mg/dL (Normal) 58-Xja-011518:07 URINE TEA CULTURE-IDENTIFICATN Comments: PATIENT NOT FASTINGPERFORMED BY: [facility] Nfezre6948 [facility] [id number] Information: [id number] ([id number]) Result 2 ECV (Normal) Comments: Escherichia coli, identified by an automated biochemical system.200 Colonies/mL .STRAIN#2 S = Susceptible; I = Intermediate; R = Resistant P = Positive; N = Negative MICS are expressed in micrograms per mL Antibiotic RSLT#1 RSLT#2 RSLT#3 RSLT#4Amoxicillin/Clavulanic Acid S IAmpicillin S RCefazolin S SCefepime S SCeftriaxone S SCefuroxime S SCephalothin S RCiprofloxacin S SESBL N NErtapenem S SGentamicin S RImipenem S SLevofloxacin S SNitrofurantoin S SPiperacillin S RTetracycline S RTobramycin S ITrimethoprim/Sulfa S R Result 1 Escherichia coli Comments: 900 Colonies/mLSTRAIN#1 (Normal) Urine Final report (Normal) Culture,[facility] 15-Bop-642398:56 Urinalysis, Office (76831) UA - BILIRUBIN Small (Normal) UA - BLOOD Negative (Normal) UA - GLUCOSE Negative (Normal) UA - KETONES Small mg/dL (Normal) UA - LEUKOCYTE ESTERASE Small (Normal) UA - NITRITE Negative (Normal) UA - PH 6.0 (Normal) UA - PROTEIN Trace mg/dL (Normal) UA - SPECIFIC GRAVITY 1.025 (Normal) URINE UROBILINGN KOLBY TIMED Normal mg/dL (Normal) :34 MICROALBUMIN: CREATININE RATIO Comments: PATIENT WAS FASTINGPERFORMED BY: [employer]70 [facility] [id number] ([id number]) AND (03373) Microalb/Creat Ratio 5.9 {mg/g_creat} (Normal) Range: 0.0-30.0 Microalbumin, Urine 5.6 ug/mL (Normal) Range: 0.0-17.0 Creatinine, Urine 95.1 mg/dL (Normal) Range: 15.0-278.0 :34 CBC WITH MANUAL DIFF Comments: PATIENT WAS FASTINGPERFORMED BY: [employer] ([place])6370 [facility] EnergyMaria [facility] [id number] Information: [id number] (33984) Immature Grans (Abs) 0.0 {x10E3/uL} (Normal) Range: 0.0-0.1 Immature Granulocytes 0 % (Normal) Range: 0-2 Baso (Absolute) 0.0 {x10E3/uL} (Normal) Range: 0.0-0.2 Eos (Absolute) 0.1 {x10E3/uL} (Normal) Range: 0.0-0.4 Monocytes(Absolute) 0.5 {x10E3/uL} (Normal) Range: 0.1-1.0 Lymphs (Absolute) 1.8 {x10E3/uL} (Normal) Range: 0.7-4.5 Neutrophils (Absolute) 2.7 {x10E3/uL} (Normal) Range: 1.8-7.8 Basos 0 % (Normal) Range: 0-3 Eos 2 % (Normal) Range: 0-7 Monocytes 10 % (Normal) Range: 4-13 Lymphs 35 % (Normal) Range: 14-46 Neutrophils 53 % (Normal) Range: 40-74 Platelets 191 {x10E3/uL} (Normal) Range: 140-415 RDW 14.2 % (Normal) Range: 12.3-15.4 MCHC 33.7 g/dL (Normal) Range: 31.5-35.7 MCH 30.5 pg (Normal) Range: 26.6-33.0 MCV 91 fL (Normal) Range: 79-97 Hematocrit 39.8 % (Normal) Range: 34.0-46.6 Hemoglobin 13.4 g/dL (Normal) Range: 11.1-15.9 RBC 4.39 {x10E6/uL} (Normal) Range: 3.77-5.28 WBC 5.1 {x10E3/uL} (Normal) Range: 4.0-10.5 :34 Vitamin D Hydroxy (50146) Comments: PATIENT WAS FASTINGPERFORMED BY: [employer] [facility] [id number] Vitamin D, 25-Hydroxy 70.7 ng/mL (Normal) Range: 30.0-100.0 Comments: Vitamin D deficiency has been defined by the [place] of[place] and an Endocrine Society practice guideline as alevel of serum 25-OH vitamin D less than 20 ng/mL (1,2).The Endocrine Society went on to further define vitamin Dinsufficiency as a level between 21 and 29 ng/mL (2).1. IOM ([place] of [employer]). 2010. Dietary reference intakes for calcium and D. [place]: The National Academies Press.2. Freddy MF, Pineda NC, Brody KHOURY, et al. Evaluation, treatment, and prevention of vitamin D deficiency: an Endocrine Society clinical practice guideline. JCEM. 2010; 96(7):1911-30. :34 LIPID PANEL (00372) Comments: PATIENT WAS FASTINGPERFORMED BY: [facility] ClinicPhttcb1787 [facility] [id number] LDL/HDL Ratio 1.5 {ratio_units} (Normal) Range: 0.0-3.2 LDL Cholesterol Calc 68 mg/dL (Normal) Range: 0-99 VLDL Cholesterol Alexander 20 mg/dL (Normal) Range: 5-40 HDL Cholesterol 46 mg/dL (Normal) Comments: According to ATP-III Guidelines, HDL-C >59 mg/dL is considered anegative risk factor for CHD. Triglycerides 98 mg/dL (Normal) Range: 0-149 Cholesterol, Total 134 mg/dL (Normal) Range: 100-199 02-Oct-20129:34 METABOLIC PANEL, COMPREHENSIVE Comments: PATIENT WAS FASTINGPERFORMED BY: [employer]70 [facility] EnergyMaria [facility] [id number] ([id number]) ALT (SGPT) 19 [iU]/L (Normal) Range: 0-32 AST (SGOT) 18 [iU]/L (Normal) Range: 0-40 Alkaline Phosphatase, S 71 [iU]/L (Normal) Range: 25-165 Bilirubin, Total 0.6 mg/dL (Normal) Range: 0.0-1.2 A/G Ratio 1.9 (Normal) Range: 1.1-2.5 Globulin, Total 2.2 g/dL (Normal) Range: 1.5-4.5 Albumin, Serum 4.1 g/dL (Normal) Range: 3.5-4.8 Protein, Total, Serum 6.3 g/dL (Normal) Range: 6.0-8.5 Calcium, Serum 9.1 mg/dL (Normal) Range: 8.6-10.2 Carbon Dioxide, Total 23 mmol/L (Normal) Range: 20-32 Chloride, Serum 105 mmol/L (Normal) Range: 97-108 Potassium, Serum 4.2 mmol/L (Normal) Range: 3.5-5.2 Sodium, Serum 143 mmol/L (Normal) Range: 134-144 BUN/Creatinine Ratio 14 (Normal) Range: 11-26 eGFR If Africn Am 87 mL/min/1.73 (Normal) eGFR If NonAfricn Am 76 mL/min/1.73 (Normal) Creatinine, Serum 0.77 mg/dL (Normal) Range: 0.57-1.00 BUN 11 mg/dL (Normal) Range: 8-27 Glucose, Serum 95 mg/dL (Normal) Range: 65-99 72-Mjo-610050:25 URINE TEA CULTURE-KOLBY COL Comments: PATIENT NOT FASTINGPERFORMED BY: [employer] Sussps1778 [facility] EnergyMaria [facility] [id number] Information: SRC:UR [id number] COUNT ([id number]) Result 1 ECV (Normal) Comments: Escherichia coli, identified by an automated biochemical system.600 Colonies/mL S = Susceptible; I = Intermediate; R = Resistant P = Positive; N = Negative GA CS are expressed in micrograms per mL Antibiotic RSLT#1 RSLT#2 RSLT#3 RSLT#4Amoxicillin/Clavulanic Acid IAmpicillin RCefazolin SCef epime SCeftriaxone SCefuroxime SCephalothin RCiprofloxacin SESBL NErtapenem SGentamicin RImipenem SLevofloxacin SNitrofurantoin SPiperacillin RTetracycline RTobramycin ITrimethoprim/Sulfa R Urine Final report (Normal) Culture,Comprehensiv e 56-Obb-38578:42 Urinalysis, Office (36494) UA - BILIRUBIN Negative (Normal) UA - BLOOD Negative (Normal) UA - GLUCOSE Negative (Normal) UA - KETONES Negative mg/dL (Normal) UA - LEUKOCYTE ESTERASE Trace (Normal) UA - NITRITE Negative (Normal) UA - PH 7.0 (Normal) UA - PROTEIN Negative mg/dL (Normal) UA - SPECIFIC GRAVITY 1.010 (Normal) URINE UROBILINGN KOLBY TIMED Normal mg/dL (Normal) 5-Mns-544974:52 Hemoglobin Glyclated (HGB A1C) Comments: PATIENT NOT FASTINGPERFORMED BY: [employer] ([place])6370 [facility] [id number] (88069) Hemoglobin A1c 5.6 % (Normal) Range: 4.8-5.6 Comments: . Increased risk for diabetes: 5.7 - 6.4 Diabetes: >6.4 Glycemic control for adults with diabetes: <7.0 3-Mnl-942259:52 EBV Panel (99294) Comments: PATIENT NOT FASTINGPERFORMED BY: Sprig[employer] KidsCoiSTARJqogjj2391 [facility] [id number] Interpretation: SPRCS (Normal) Comments: EBV Interpretation Chart . Interpretation VCA-IgM EA-IgG VCA-IgG NA-ABS . Susceptible - - - - Acute Infection + +or- +or- - Convalescent Phase +or- +or- + + Chronic or Reactivated - + + +or- Old Infection - - +or- + + Antibody Present - Antibody Absent EBV Nuclear Antigen Ab, IgG >8.0 {AI} (Abnormal) Range: 0.0-0.8 Comments: Negative <0.9 Equivocal 0.9 - 1.0 Positive >1.0 EBV Ab VCA, IgG >8.0 {AI} (Abnormal) Range: 0.0-0.8 Comments: Negative <0.9 Equivocal 0.9 - 1.0 Positive >1.0 EBV Early Antigen Ab, IgG 2.5 {AI} (Abnormal) Range: 0.0-0.8 Comments: Negative <0.9 Equivocal 0.9 - 1.0 Positive >1.0 EBV Ab VCA, IgM <0.2 {AI} (Normal) Range: 0.0-0.8 Comments: Negative <0.9 Equivocal 0.9 - 1.0 Positive >1.0 6-Msv-291082:52 CBC WITH MANUAL DIFF Comments: PATIENT NOT FASTINGPERFORMED BY: [facility] Lvskdr6355 [facility] [id number] Information: [id number] (73922) Immature Grans (Abs) 0.0 {x10E3/uL} (Normal) Range: 0.0-0.1 Immature Granulocytes 0 % (Normal) Range: 0-2 Baso (Absolute) 0.0 {x10E3/uL} (Normal) Range: 0.0-0.2 Eos (Absolute) 0.1 {x10E3/uL} (Normal) Range: 0.0-0.4 Monocytes(Absolute) 0.5 {x10E3/uL} (Normal) Range: 0.1-1.0 Lymphs (Absolute) 2.1 {x10E3/uL} (Normal) Range: 0.7-4.5 Neutrophils (Absolute) 3.6 {x10E3/uL} (Normal) Range: 1.8-7.8 Basos 1 % (Normal) Range: 0-3 Eos 2 % (Normal) Range: 0-7 Monocytes 9 % (Normal) Range: 4-13 Lymphs 32 % (Normal) Range: 14-46 Neutrophils 56 % (Normal) Range: 40-74 Platelets 199 {x10E3/uL} (Normal) Range: 140-415 RDW 14.2 % (Normal) Range: 12.3-15.4 MCHC 34.1 g/dL (Normal) Range: 31.5-35.7 MCH 31.0 pg (Normal) Range: 26.6-33.0 MCV 91 fL (Normal) Range: 79-97 Hematocrit 41.0 % (Normal) Range: 34.0-46.6 Hemoglobin 14.0 g/dL (Normal) Range: 11.1-15.9 RBC 4.52 {x10E6/uL} (Normal) Range: 3.77-5.28 WBC 6.4 {x10E3/uL} (Normal) Range: 4.0-10.5 1-Rya-386226:52 VITAMIN B-12 (CYANOCOBALAMIN) Comments: PATIENT NOT FASTINGPERFORMED BY: [employer] Viwwca8543 [facility] [id number] ([id number]) Vitamin B12 373 pg/mL (Normal) Range: 211-946 0-Xfm-472340:22 URINE TEA CULTURE-KOLBY COL Comments: PATIENT NOT FASTINGPERFORMED BY: [employer] [facility] [id number] Information: SRC: URINE COUNT ([id number]) Result 1 ECV (Normal) Comments: Escherichia coli, identified by an automated biochemical system.Greater than 100,000 colony forming units per mL S = Susceptible; I = Intermediate; R = Resistant P = Posi tive; N = Negative MICS are expressed in micrograms per mL Antibiotic RSLT#1 RSLT#2 RSLT#3 RSLT#4Amoxicillin/Clavulanic Acid RAmpicillin RCef azolin SCefepime SCeftriaxone SCefuroxime SCephalothin RCiprofloxacin SESBL NErtapenem SGentamicin RImipenem SLevofloxacin SNitrofurantoin SPiperacillin RTetracycline RTobramycin ITrimethoprim/Sulfa R Urine Final report (Normal) Culture,Comprehensiv e 8-Tnk-682201:11 Urinalysis, Office (54993) UA - BILIRUBIN Negative (Normal) UA - BLOOD Negative (Normal) UA - GLUCOSE Negative (Normal) UA - KETONES Negative mg/dL (Normal) UA - LEUKOCYTE ESTERASE Small (Normal) UA - NITRITE Negative (Normal) UA - PH 7.0 (Normal) UA - PROTEIN Negative mg/dL (Normal) UA - SPECIFIC GRAVITY 1.015 (Normal) URINE UROBILINGN KOLBY TIMED Normal mg/dL (Normal) 26-Dku-090227:01 BILAT JOSE DIGITAL & CAD Radiology Report See Note (Normal) Comments: MAMMOGRAPHY - BILATERAL SCREENING REASON FOR EXAM: Female, 76 years old. Routine annual screeningexamination. PERTINENT HISTORY: TECHNIQUE: Digital examination. Mediolateral oblique ( MLO) andcran iocaudad (CC) views of both breasts were obtained. CAD: CAD wasperformed on this study. COMPARISON: February 16, 2011 FINDINGS:The breast composition is composed of scattered fibroglandular densities. Ther e are no dominant masses or suspicious calcifications. No other significant abnormalities are identified. IMPRESSION:Stable bilateral screening mammogram. Yearly follow-up recommended. (A) ASSESSMENT CATEGORY:BIRADS Category 1: Negative. A letter regarding these results will besent to the patient by the facility within 30 days. Approximately 10% of breast cancers are not detected by mammography. Anormal mammogram should not delay biopsy of a clinically suspiciousabnormality. Signed:Marcelino Dixno M.D.March 08, 2012 at 12:50:06 PM EDTElectronically Signed MV/MV Professional Interpretation Provided By: [facility], , To consult with a radiologist regarding this report, please call our [id number] line @ Dictated on 03/08/12 1212 by Abdiel PETERS MDcribed on 03/08/12 1535 by ITS IMPORTSign by MARCELINO PETERS MD on 03/08/12 1536 Sign by: __ MARCELINO PETERS MD 28-May-20129:39 METABOLIC PANEL, Comments: PATIENT WAS FASTINGPERFORMED BY: [facility]CoUniversity HospitalSvbaez5282 [facility] [id number] Information: [id number] COMPREHENSIVE (48515) ALT (SGPT) 18 [iU]/L (Normal) Range: 0-40 AST (SGOT) 20 [iU]/L (Normal) Range: 0-40 Alkaline Phosphatase, S 67 [iU]/L (Normal) Range: 25-165 Bilirubin, Total 0.5 mg/dL (Normal) Range: 0.0-1.2 A/G Ratio 2.1 (Normal) Range: 1.1-2.5 Globulin, Total 2.1 g/dL (Normal) Range: 1.5-4.5 Albumin, Serum 4.4 g/dL (Normal) Range: 3.5-4.8 Protein, Total, Serum 6.5 g/dL (Normal) Range: 6.0-8.5 Calcium, Serum 9.4 mg/dL (Normal) Range: 8.6-10.2 Carbon Dioxide, Total 26 mmol/L (Normal) Range: 20-32 Chloride, Serum 104 mmol/L (Normal) Range: 97-108 Potassium, Serum 4.4 mmol/L (Normal) Range: 3.5-5.2 Sodium, Serum 142 mmol/L (Normal) Range: 134-144 BUN/Creatinine Ratio 17 (Normal) Range: 11-26 eGFR If Africn Am 87 mL/min/1.73 (Normal) eGFR If NonAfricn Am 75 mL/min/1.73 (Normal) Creatinine, Serum 0.78 mg/dL (Normal) Range: 0.57-1.00 BUN 13 mg/dL (Normal) Range: 8-27 Glucose, Serum 104 mg/dL (Abnormal) Range: 65-99 28-May-20129:39 LIPID PANEL (71768) Comments: PATIENT WAS FASTINGPERFORMED BY: [facility]Co[facility] HospitalGyzifh7929 [facility] [id number] LDL/HDL Ratio 2.2 {ratio_units} (Normal) Range: 0.0-3.2 LDL Cholesterol Calc 91 mg/dL (Normal) Range: 0-99 Comments: Effective June 03, 2012, the reference interval for LDL Cholesterol Calc will be changing to: 0 - 19 years 0 - 109 20 - 24 years 0 - 119 > 24 years 0 - 99 VLDL Cholesterol Alexander 28 mg/dL (Normal) Range: 5-40 HDL Cholesterol 42 mg/dL (Normal) Comments: According to ATP-III Guidelines, HDL-C >59 mg/dL is considered anegative risk factor for CHD. Triglycerides 142 mg/dL (Normal) Range: 0-149 Comments: Effective June 03, 2012, the reference interval for Triglycerides will be changing to: 0 - 9 years 0 - 74 10 - 19 years 0 - 89 20 - 24 years 0 - 114 > 24 years 0 - 149 Cholesterol, Total 161 mg/dL (Normal) Range: 100-199 Comments: Effective June 03, 2012, the reference interval for Cholesterol, Total will be changing to: 0 - 19 years 100 - 169 20 - 24 years 100 - 189 > 24 years 100 - 199 :39 Vitamin D Hydroxy (81235) Comments: PATIENT WAS FASTINGPERFORMED BY: ZAP [id number]Dublin [place] [id number] Vitamin D, 25-Hydroxy 63.5 ng/mL (Normal) Range: 30.0-100.0 Comments: Vitamin D deficiency has been defined by the [place] [facility] and an Endocrine Society practice guideline as alevel of serum 25-OH vitamin D less than 20 ng/mL (1,2).The Endocrine Society went on to further define vitamin Dinsufficiency as a level between 21 and 29 ng/mL (2).1. IOM ([place] [employer]). 2010. Dietary reference intakes for calcium and D. [place]: The National Academies Press.2. Freddy MF, Pineda EUBANKS, Brody KHOURY, et al. Evaluation, treatment, and prevention of vitamin D deficiency: an Endocrine Society clinical practice guideline. JCEM. 2010; 96(7):1911-30. :39 PHOSPHORUS (60633) Comments: PATIENT WAS FASTINGPERFORMED BY: [facility] Yeenqt16[address]Dublin [place] [id number] Phosphorus, Serum 4.1 mg/dL (Normal) Range: 2.5-4.5 :39 PARATHORMONE (89058) Comments: PATIENT WAS FASTINGPERFORMED BY: [facility] Mcqifz1493 [address]Dublin [place] [id number] PTH, Intact 32 pg/mL (Normal) Range: 15-65 :39 TSH (92180) Comments: PATIENT WAS FASTINGPERFORMED BY: [facility] [id number] TSH 3.330 {uIU/mL} (Normal) Range: 0.450-4.500 10-Fyc-565451:01 DEXA BONE DENSITY STUDY () Radiology Report See Note (Normal) Comments: PROCEDURE: DUAL ENERGY X-RAY ABSORPTIOMETRY / DEXA. REASON FOR EXAM: Female, 76 years old. The patient has a history ofosteoporosis. TECHNIQUE: Bone Mineral Density (BMD) measurements of lumbar sp ine andbilateral hips were obtained. COMPARISON: Comparison is made with prior study dated August. FINDINGS: Lumbar Spine (L1-L4): g/cm2 (0.929) / T-score (-2.1) / Z-score (-0.4)Left Fe mur Total: g/cm2 (0.576) / T-score (-3.3) / Z-score (-1.4)Right Femur Total: g/cm2 (0.685) / T-score (-2.5) / Z-score (-0.7) Since prior study, there has been an improvement of 1.6% in the lum barspine and a decrease in bone density of 6.6% in the left hip. IMPRESSION:The patient is considered osteoporotic, as outlined above, according toWorld Health Organization (WHO) criteria. Fracture ris k is high. Reference Information:The T-score is the number of standard deviations above or below thestandard which is normal for young adults at their peak bone mineraldensity. The World Health Organiza tion (WHO) interprets the T-scores asfollows: Above -1 Normal bone densityBetween -1 and -2.5 OsteopeniaEqual to / or below -2.5 Osteoporosis As a practical clinical guideline, osteopenia may be graded as follows:Mild -1 through -1.5Moderate -1.6 through -2.0Severe -2.1 through -2.4 The Z-score is the number of standard deviations above or below age-matchedcontrols. A Z-score of less than -1.5 would be considered abnormal. References:1. NIH Osteoporosis and Related Bone Diseases http://www.osteo.org2. International Society for Clinical Densitometry http://www.iscd.org3. National Osteoporosis Foundation http://www.nof.org To consult with a radiologist regarding this report, please call our [id number] line @ Dictated on 10/12/11 1004 by Ni BERG,Oscar rodriguezribed on 10/12/11 1101 by ITS IMPORTSign by Ni BERG,Arjun on 10/12/11 1102 Sign by: Ni BERG,Arjun 22-Wrl-528570:12 METABOLIC PANEL, Comments: PATIENT WAS FASTINGPERFORMED BY: [facility]6[address] [facility] [id number] Information: [id number] COMPREHENSIVE (40046) ALT (SGPT) 15 [iU]/L (Normal) Range: 0-40 AST (SGOT) 19 [iU]/L (Normal) Range: 0-40 Alkaline Phosphatase, S 72 [iU]/L (Normal) Range: 25-165 Bilirubin, Total 0.5 mg/dL (Normal) Range: 0.0-1.2 A/G Ratio 1.9 (Normal) Range: 1.1-2.5 Globulin, Total 2.3 g/dL (Normal) Range: 1.5-4.5 Albumin, Serum 4.4 g/dL (Normal) Range: 3.5-4.8 Protein, Total, Serum 6.7 g/dL (Normal) Range: 6.0-8.5 Calcium, Serum 9.5 mg/dL (Normal) Range: 8.6-10.2 Carbon Dioxide, Total 26 mmol/L (Normal) Range: 20-32 Chloride, Serum 103 mmol/L (Normal) Range: 97-108 Potassium, Serum 4.0 mmol/L (Normal) Range: 3.5-5.2 Sodium, Serum 141 mmol/L (Normal) Range: 134-144 BUN/Creatinine Ratio 24 (Normal) Range: 11-26 eGFR If Africn Am 100 mL/min/1.73 (Normal) Comments: Note: A persistent eGFR <60 mL/min/1.73 m2 (3 months or more) mayindicate chronic kidney disease. An eGFR >59 mL/min/1.73 m2 with anelevated urine protein also may indicate chronic kidney disease.Calculated using CKD-EPI formula. eGFR If NonAfricn Am 86 mL/min/1.73 (Normal) Creatinine, Serum 0.68 mg/dL (Normal) Range: 0.57-1.00 BUN 16 mg/dL (Normal) Range: 8-27 Glucose, Serum 92 mg/dL (Normal) Range: 65-99 85-Snf-743319:12 Vitamin D Hydroxy (96628) Comments: PATIENT WAS FASTINGPERFORMED BY: [employer] ([place])[address] [facility] [id number] Vitamin D, 25-Hydroxy 70.5 ng/mL (Normal) Range: 30.0-100.0 Comments: Vitamin D deficiency has been defined by the [place] of[place] and an Endocrine Society practice guideline as alevel of serum 25-OH vitamin D less than 20 ng/mL (1,2).The Endocrine Society went on to further define vitamin Dinsufficiency as a level between 21 and 29 ng/mL (2).1. IOM ([place] [employer]). 2010. Dietary reference intakes for calcium and D. [place]: The National Academies Press.2. Freddy MF, Pineda NC, Brody KHOURY, et al. Evaluation, treatment, and prevention of vitamin D deficiency: an Endocrine Society clinical practice guideline. JCEM. 2010; 96(7):1911-30. 68-Aij-272769:12 LIPID PANEL (30895) Comments: PATIENT WAS FASTINGPERFORMED BY: [employer] Uqmukj9122 [facility] [id number] LDL/HDL Ratio 2.1 {ratio_units} (Normal) Range: 0.0-3.2 LDL Cholesterol Calc 103 mg/dL (Abnormal) Range: 0-99 VLDL Cholesterol Alexander 19 mg/dL (Normal) Range: 5-40 HDL Cholesterol 50 mg/dL (Normal) Comments: According to ATP-III Guidelines, HDL-C >59 mg/dL is considered anegative risk factor for CHD. Triglycerides 97 mg/dL (Normal) Range: 0-149 Cholesterol, Total 172 mg/dL (Normal) Range: 100-199 30-Fgm-723584:56 UNILAT LT DIAG DIGITAL & CAD Radiology Report See Note (Normal) Comments: MAMMOGRAPHY - UNILATERAL DIAGNOSTIC: LEFT BREAST INDICATION:Female, 75 years old. PERTINENT HISTORY:The patient was recalled for additional views of the left breast. TECHNIQUE:Digital exami nation. 90 degree lateral as well as compression views ofthe breast were obtained. CAD: CAD was performed on this study. COMPARISON:Comparison is made with prior study dated February 16, 2011. FINDINGS:The breast comp osition is heterogeneously dense. There are no masses or suspicious microcalcifications. No other significant abnormalities are identified. IMPRESSION:Normal unilateral diagnostic mammogram. One year f ollow-up recommended.(1) ASSESSMENT CATEGORY:BIRADS Category 2: Benign finding(s). A letter regarding these resultswill be sent to the patient by the facility within 30 days. Approximately 10% of [address] cancers are not detected by mammography. Anormal mammogram should not delay biopsy of a clinically suspiciousabnormality. Dictated on 02/17/11 1004 by Estella Weathers MDeleTranscribed on 02/17/11 1133 by ITS IMPORTSign by Arjun Weathers MD on 02/17/11 1134 Sign by: Arjun Weathers MD 92-Kvw-95371:59 BILAT SCRN DIGITAL & CAD Radiology Report See Note (Normal) Comments: MAMMOGRAPHY - BILATERAL SCREENING INDICATION:Female, 75 years old. Routine annual screening examination. PERTINENT HISTORY:Non-contributory. TECHNIQUE:Digital examination. Mediolateral oblique (MLO) and craniocaudad (CC)viewsof both breasts were obtained. CAD: CAD was performed on this study. COMPARISON:Comparison is made with prior study dated September 07, 2009. FINDINGS:The breast composition is het erogeneously dense. Two small densities are seen in the upper aspect of the left breast onthemediolateral oblique view. This most likely represents super impositionoftissue. The patient will be recalled for additional views including a 90degree lateral, as well as compression spot views. No cluster ofmicrocalcifications seen. No other significant abnormalities are identified. IMPRESSION:Two densities seen in the left breast as previously described. Thepatientwill be recalled for additional views. ASSESSMENT CATEGORY:BIRADS Category 0: Need Additional Imaging Evaluation. A letter regardingthese resul ts will be sent to the patient by the facility within 30 days. Approximately 10% of breast cancers are not detected by mammography. Anormal mammogram should not delay biopsy of a clinically suspiciousab normality. Dictated on 02/16/11 0824 by Rhea Weathers MDranscribed on 02/16/11 1025 by ITS IMPORTSign by Arjun Weathers MD on 02/16/11 1026 Sign by: Arjun Weathers MD 65-Uxq-726393:01 METABOLIC PANEL, Comments: PATIENT WAS FASTINGPERFORMED BY: LabCoUniversity HospitalOsgsya0098 [facility] [id number] Information: [id number] COMPREHENSIVE (49154) ALT (SGPT) 20 [iU]/L (Normal) Range: 0-40 AST (SGOT) 20 [iU]/L (Normal) Range: 0-40 Alkaline Phosphatase, S 60 [iU]/L (Normal) Range: 25-165 Bilirubin, Total 0.5 mg/dL (Normal) Range: 0.0-1.2 A/G Ratio 1.9 (Normal) Range: 1.1-2.5 Globulin, Total 2.3 g/dL (Normal) Range: 1.5-4.5 Albumin, Serum 4.4 g/dL (Normal) Range: 3.5-4.8 Protein, Total, Serum 6.7 g/dL (Normal) Range: 6.0-8.5 Calcium, Serum 9.3 mg/dL (Normal) Range: 8.6-10.2 Carbon Dioxide, Total 26 mmol/L (Normal) Range: 20-32 Chloride, Serum 104 mmol/L (Normal) Range: 97-108 Potassium, Serum 4.3 mmol/L (Normal) Range: 3.5-5.2 Sodium, Serum 140 mmol/L (Normal) Range: 135-145 BUN/Creatinine Ratio 22 (Normal) Range: 11-26 eGFR If Africn Am 86 mL/min/1.73 (Normal) Comments: Note: A persistent eGFR <60 mL/min/1.73 m2 (3 months or more) mayindicate chronic kidney disease. An eGFR >59 mL/min/1.73 m2 with anelevated urine protein also may indicate chronic kidney disease.Calculated using CKD-EPI formula. eGFR If NonAfricn Am 74 mL/min/1.73 (Normal) Creatinine, Serum 0.79 mg/dL (Normal) Range: 0.57-1.00 BUN 17 mg/dL (Normal) Range: 8-27 Glucose, Serum 99 mg/dL (Normal) Range: 65-99 66-Rhe-923445:01 LIPID PANEL (63389) Comments: PATIENT WAS FASTINGPERFORMED BY: [facility] [id number] LDL/HDL Ratio 2.1 {ratio_units} (Normal) Range: 0.0-3.2 LDL Cholesterol Calc 91 mg/dL (Normal) Range: 0-99 VLDL Cholesterol Alexander 23 mg/dL (Normal) Range: 5-40 HDL Cholesterol 44 mg/dL (Normal) Comments: According to ATP-III Guidelines, HDL-C >59 mg/dL is considered anegative risk factor for CHD. Triglycerides 114 mg/dL (Normal) Range: 0-149 Cholesterol, Total 158 mg/dL (Normal) Range: 100-199 88-Van-725732:01 Vitamin D Hydroxy (29099) Comments: PATIENT WAS FASTINGPERFORMED BY: [employer] ([place])[address] [facility] [id number] Vitamin D, 25-Hydroxy 39.2 ng/mL (Normal) Range: 32.0-100.0 Comments: Recent studies consider the lower limit of 32.0 ng/mL to be athreshold for optimal health.Harman GALVAN. J Nutr. 2004;135(2):317-22. 52-Rpz-445916:59 URINE TEA CULTURE-KOLBY COL Comments: PATIENT NOT FASTINGPERFORMED BY: [employer]70 [facility] [id number] Information: SRC:UR [id number] COUNT (65766) Result 1 MUG (Normal) Comments: Mixed urogenital Colonies/mL Urine Culture,Comprehensive Final report (Normal) 40-Xjw-139551:54 Urinalysis, Office (13103) UA - BILIRUBIN Negative (Normal) UA - BLOOD Negative (Normal) UA - GLUCOSE Negative (Normal) UA - KETONES Negative mg/dL (Normal) UA - LEUKOCYTE ESTERASE Small (Normal) UA - NITRITE Negative (Normal) UA - PH 6.0 (Normal) UA - PROTEIN Negative mg/dL (Normal) UA - SPECIFIC GRAVITY 1.005 (Normal) URINE UROBILINGN KOLBY TIMED Normal mg/dL (Normal) 85-Cna-641643:21 URINE TEA CULTURE (KOLBY Comments: PATIENT NOT FASTINGPERFORMED BY: [employer]70 [facility] [id number] Information: SRC:UR [id number] COL COUNT) (95905) Result 1 BETAGB (Normal) Comments: Beta hemolytic Streptococcus, group B3,000 Colonies/mL .Penicillin continues to be the drug of choice for infectionscaused by beta hemolytic streptococ ci in groups A,B,C and G.No penicillin resistance has been described among theseorganisms and surveillance for emerging resistance is notrecommended. (MARQUIS Lopez. Clinical Microbiology Newsletter,; CURT Mondragon, et al. Diagnostic Microbiology andInfectious Disease, February,.) Urine Final report (Normal) Culture,Comprehensive 53-Cuc-66334:30 Urinalysis, Office (01043) UA - BILIRUBIN Negative (Normal) UA - BLOOD Hemolyzed Trace (Normal) UA - GLUCOSE Negative (Normal) UA - KETONES Negative mg/dL (Normal) UA - LEUKOCYTE ESTERASE Moderate (Normal) UA - NITRITE Negative (Normal) UA - PH 7.0 (Normal) UA - PROTEIN Negative mg/dL (Normal) UA - SPECIFIC GRAVITY 1.010 (Normal) URINE UROBILINGN KOLBY TIMED Normal mg/dL (Normal) 53-Svy-013778:26 Microscopic Examination Comments: PATIENT WAS FASTINGPERFORMED BY: [employer] ([place])[address] [facility] [id number] Bacteria None seen (Normal) Epithelial Cells (non renal) 0-10 {/hpf} (Normal) Range: 0 - 10 Mucus Threads Present (Normal) RBC 4-10 {/hpf} (Abnormal) Range: 0 - 3 WBC 11-30 {/hpf} (Abnormal) Range: 0 - 5 :26 CBC WITH MANUAL DIFF Comments: PATIENT WAS FASTINGPERFORMED BY: [facility]yoUniversity HospitalLkgifh5980 [facility] [id number] Information: [id number] (82760) Baso (Absolute) 0.0 {x10E3/uL} (Normal) Range: 0.0-0.2 Basos 0 % (Normal) Range: 0-3 Eos 3 % (Normal) Range: 0-7 Eos (Absolute) 0.1 {x10E3/uL} (Normal) Range: 0.0-0.4 Immature Grans (Abs) 0.0 {x10E3/uL} (Normal) Range: 0.0-0.1 Immature Granulocytes 0 % (Normal) Range: 0-1 Lymphs (Absolute) 1.9 {x10E3/uL} (Normal) Range: 0.7-4.5 Monocytes(Absolute) 0.5 {x10E3/uL} (Normal) Range: 0.1-1.0 Neutrophils (Absolute) 2.6 {x10E3/uL} (Normal) Range: 1.8-7.8 Hematocrit 40.3 % (Normal) Range: 34.0-44.0 Hemoglobin 13.5 g/dL (Normal) Range: 11.5-15.0 Lymphs 37 % (Normal) Range: 14-46 MCH 31.3 pg (Normal) Range: 27.0-34.0 MCHC 33.5 g/dL (Normal) Range: 32.0-36.0 MCV 93 fL (Normal) Range: 80-98 Monocytes 10 % (Normal) Range: 4-13 Neutrophils 50 % (Normal) Range: 40-74 Platelets 198 {x10E3/uL} (Normal) Range: 140-415 RBC 4.32 {x10E6/uL} (Normal) Range: 3.80-5.10 RDW 13.7 % (Normal) Range: 11.7-15.0 WBC 5.2 {x10E3/uL} (Normal) Range: 4.0-10.5 04-Adh-278525:26 URINALYSIS, W/ MICRO (39574) Comments: PATIENT WAS FASTINGPERFORMED BY: [facility]yoUniversity HospitalMrcweu8823 [facility] [id number] Bilirubin Negative (Normal) Ketones Negative (Normal) Microscopic Examination See below: (Normal) Nitrite, Urine Negative (Normal) Occult Blood 1+ (Abnormal) Urobilinogen,Semi-Qn 0.2 mg/dL (Normal) Range: 0.0-1.9 Appearance Clear (Normal) Glucose Negative (Normal) pH 6.5 (Normal) Range: 5.0-7.5 Protein Trace (Normal) Specific Brandon 1.024 (Normal) Range: 1.005-1.030 Urine-Color Yellow (Normal) WBC Esterase 2+ (Abnormal) 52-Lbv-408454:26 TSH (95816) Comments: PATIENT WAS FASTINGPERFORMED BY: [employer] [facility] [id number] TSH 2.590 {uIU/mL} (Normal) Range: 0.450-4.500 49-Irh-317664:26 METABOLIC PANEL, COMPREHENSIVE Comments: PATIENT WAS FASTINGPERFORMED BY: [employer]70 [facility] [id number] (21995) A/G Ratio 2.0 (Normal) Range: 1.1-2.5 Albumin, Serum 4.3 g/dL (Normal) Range: 3.5-4.8 Alkaline Phosphatase, S 55 [iU]/L (Normal) Range: 25-165 ALT (SGPT) 15 [iU]/L (Normal) Range: 0-40 AST (SGOT) 19 [iU]/L (Normal) Range: 0-40 Bilirubin, Total 0.5 mg/dL (Normal) Range: 0.0-1.2 Globulin, Total 2.2 g/dL (Normal) Range: 1.5-4.5 BUN 17 mg/dL (Normal) Range: 5-26 Comments: Effective October 03, 2010, BUN reference interval will be changing to: 0 - 12 months 3 - 18 mg/dL 1 - 17 years 5 - 18 mg/dL 18 - 39 years 6 - 20 mg/dL 40 - 59 years 6 - 24 mg/dL 60 - 89 y ears 8 - 27 mg/dL > 89 years 10 - 36 mg/dL BUN/Creatinine Ratio 20 (Normal) Range: 8-27 Comments: Effective October 03, 2010, Bun/Creatinine Ratio reference interval will be changing to: Age Male Female <18 years 9 - 27 9 - 25 18 - 39 years 8 - 8 - 20 40 - 59 years 9 - 9 - 60 years and older 11 - Calcium, Serum 9.4 mg/dL (Normal) Range: 8.6-10.2 Carbon Dioxide, Total 27 mmol/L (Normal) Range: 20-32 Chloride, Serum 102 mmol/L (Normal) Range: 97-108 Creatinine, Serum 0.86 mg/dL (Normal) Range: 0.57-1.00 eGFR >59 mL/min/1.73 (Normal) eGFR AfricanAmerican >59 mL/min/1.73 Comments: Note: Persistent reduction for 3 months or more in an eGFR<60 mL/min/1.73 m2 defines CKD. Patients with eGFR values>/=60 mL/min/1.73 m2 may also have CKD if evidence of persistentproteinuria is (Normal) present. Additional information may be found atwww.kdoqi.org. Potassium, Serum 3.7 mmol/L (Normal) Range: 3.5-5.2 Protein, Total, Serum 6.5 g/dL (Normal) Range: 6.0-8.5 Sodium, Serum 140 mmol/L (Normal) Range: 135-145 Glucose, Serum 98 mg/dL (Normal) Range: 65-99 95-Xjx-449140:26 Vitamin D Hydroxy (13926) Comments: PATIENT WAS FASTINGPERFORMED BY: [employer] ([place])[address] [facility] [id number] Vitamin D, 25-Hydroxy 57.0 ng/mL (Normal) Range: 32.0-100.0 Comments: Recent studies consider the lower limit of 32.0 ng/mL to be athreshold for optimal health.Harman GALVAN. J Nutr. 2004;135(2):317-22. 53-Thp-399968:26 LIPID PANEL (49980) Comments: PATIENT WAS FASTINGPERFORMED BY: [employer] ([place])[address] [facility] [id number] Cholesterol, Total 145 mg/dL (Normal) Range: 100-199 HDL Cholesterol 45 mg/dL (Normal) Comments: According to ATP-III Guidelines, HDL-C >59 mg/dL is considered anegative risk factor for CHD. LDL Cholesterol Calc 81 mg/dL (Normal) Range: 0-99 LDL/HDL Ratio 1.8 {ratio_units} (Normal) Range: 0.0-3.2 Triglycerides 93 mg/dL (Normal) Range: 0-149 VLDL Cholesterol Alexander 19 mg/dL (Normal) Range: 40 :32 LIPID PANEL (10960) Comments: PATIENT WAS FASTINGPERFORMED BY: [employer] [id number] Cholesterol, Total 168 mg/dL (Normal) Range: 100-199 HDL Cholesterol 43 mg/dL (Normal) Comments: According to ATP-III Guidelines, HDL-C >59 mg/dL is considered anegative risk factor for CHD. LDL Cholesterol Calc 110 mg/dL (Abnormal) Range: 0-99 LDL/HDL Ratio 2.6 {ratio_units} (Normal) Range: 0.0-3.2 Triglycerides 76 mg/dL (Normal) Range: 0-149 VLDL Cholesterol Alexander 15 mg/dL (Normal) Range: 40 36-Psq-155435:32 METABOLIC PANEL, Comments: PATIENT WAS FASTINGPERFORMED BY: [employer]6370 [facility] [id number] Information: [id number] COMPREHENSIVE (93038) A/G Ratio 1.8 (Normal) Range: 1.1-2.5 Alkaline Phosphatase, S 75 [iU]/L (Normal) Range: 25-165 ALT (SGPT) 32 [iU]/L (Normal) Range: 0-40 AST (SGOT) 29 [iU]/L (Normal) Range: 0-40 Bilirubin, Total 0.4 mg/dL (Normal) Range: 0.0-1.2 Globulin, Total 2.4 g/dL (Normal) Range: 1.5-4.5 Albumin, Serum 4.4 g/dL (Normal) Range: 3.5-4.8 Calcium, Serum 9.1 mg/dL (Normal) Range: 8.6-10.2 Carbon Dioxide, Total 23 mmol/L (Normal) Range: 20-32 Chloride, Serum 103 mmol/L (Normal) Range: 97-108 Protein, Total, Serum 6.8 g/dL (Normal) Range: 6.0-8.5 BUN/Creatinine Ratio 20 (Normal) Range: 8-27 Creatinine, Serum 0.74 mg/dL (Normal) Range: 0.57-1.00 eGFR >59 mL/min/1.73 (Normal) eGFR AfricanAmerican >59 mL/min/1.73 Comments: Note: Persistent reduction for 3 months or more in an eGFR<60 mL/min/1.73 m2 defines CKD. Patients with eGFR values>/=60 mL/min/1.73 m2 may also have CKD if evidence of persistentproteinuria is (Normal) present. Additional information may be found atwww.[email or web address]. Potassium, Serum 4.2 mmol/L (Normal) Range: 3.5-5.2 Sodium, Serum 140 mmol/L (Normal) Range: 135-145 BUN 15 mg/dL (Normal) Range: 5-26 Glucose, Serum 93 mg/dL (Normal) Range: 65-99 75-Yfe-983751:32 Vitamin D Hydroxy (84663) Comments: PATIENT WAS FASTINGPERFORMED BY: [employer] ([place])6[address] [facility] [id number] Vitamin D, 25-Hydroxy 39.3 ng/mL (Normal) Range: 32.0-100.0 Comments: Recent studies consider the lower limit of 32.0 ng/mL to be athreshold for optimal health.Harman GALVAN. J Nutr. 2004;135(2):317-22. :20 Glucose (2 Spec) Comments: PATIENT WAS FASTINGPERFORMED BY: [employer] Etdfdq9121 [facility]comC[facility] [id number] Information: 75G DRAWN @ 1107AM Tolerance, S Glucose, 2 hour 92 mg/dL (Normal) Range: 65-139 Glucose, Fasting 97 mg/dL (Normal) Range: 65-99 :44 Vitamin D Hydroxy (35050) Comments: PATIENT WAS FASTINGPERFORMED BY: [employer] Hokheu7581 [facility] [id number] Vitamin D, 25-Hydroxy 38.1 ng/mL (Normal) Range: 32.0-100.0 Comments: Recent studies consider the lower limit of 32.0 ng/mL to be athreshold for optimal health.Harman GALVAN. J Nutr. 2004;135(2):317-22. :44 CBC WITH MANUAL DIFF Comments: PATIENT WAS FASTINGPERFORMED BY: [facility]yoUniversity HospitalJzeqsq9605 [facility] [id number] Information: [id number] (10153) Baso (Absolute) 0.1 {x10E3/uL} (Normal) Range: 0.0-0.2 Eos (Absolute) 0.1 {x10E3/uL} (Normal) Range: 0.0-0.4 Lymphs (Absolute) 1.9 {x10E3/uL} (Normal) Range: 0.7-4.5 Monocytes(Absolute) 0.4 {x10E3/uL} (Normal) Range: 0.1-1.0 Neutrophils (Absolute) 2.6 {x10E3/uL} (Normal) Range: 1.8-7.8 Basos 1 % (Normal) Range: 0-3 Eos 2 % (Normal) Range: 0-7 Lymphs 37 % (Normal) Range: 14-46 Monocytes 8 % (Normal) Range: 4-13 Neutrophils 52 % (Normal) Range: 40-74 Platelets 182 {x10E3/uL} (Normal) Range: 140-415 RDW 14.0 % (Normal) Range: 11.7-15.0 MCH 32.2 pg (Normal) Range: 27.0-34.0 MCHC 33.9 g/dL (Normal) Range: 32.0-36.0 MCV 95 fL (Normal) Range: 80-98 Hematocrit 41.6 % (Normal) Range: 34.0-44.0 Hemoglobin 14.1 g/dL (Normal) Range: 11.5-15.0 RBC 4.37 {x10E6/uL} (Normal) Range: 3.80-5.10 WBC 5.0 {x10E3/uL} (Normal) Range: 4.0-10.5 :44 METABOLIC PANEL, COMPREHENSIVE Comments: PATIENT WAS FASTINGPERFORMED BY: [facility]6370 [facility] [id number] (09085) ALT (SGPT) 24 [iU]/L (Normal) Range: 0-40 Alkaline Phosphatase, S 64 [iU]/L (Normal) Range: 25-165 AST (SGOT) 25 [iU]/L (Normal) Range: 0-40 A/G Ratio 1.9 (Normal) Range: 1.1-2.5 Albumin, Serum 4.3 g/dL (Normal) Range: 3.5-4.8 Bilirubin, Total 0.5 mg/dL (Normal) Range: 0.0-1.2 Comments: Please note reference interval change Globulin, Total 2.3 g/dL (Normal) Range: 1.5-4.5 Protein, Total, Serum 6.6 g/dL (Normal) Range: 6.0-8.5 Calcium, Serum 9.2 mg/dL (Normal) Range: 8.6-10.2 Carbon Dioxide, Total 27 mmol/L (Normal) Range: 20-32 Chloride, Serum 104 mmol/L (Normal) Range: 97-108 Potassium, Serum 4.0 mmol/L (Normal) Range: 3.5-5.2 BUN/Creatinine Ratio 19 (Normal) Range: 8-27 eGFR AfricanAmerican >59 mL/min/1.73 Comments: Note: Persistent reduction for 3 months or more in an eGFR<60 mL/min/1.73 m2 defines CKD. Patients with eGFR values>/=60 mL/min/1.73 m2 may also have CKD if evidence of persistentproteinuria is (Normal) present. Additional information may be found [email or web address]. Sodium, Serum 144 mmol/L (Normal) Range: 135-145 Creatinine, Serum 0.84 mg/dL (Normal) Range: 0.57-1.00 eGFR >59 mL/min/1.73 (Normal) BUN 16 mg/dL (Normal) Range: 5-26 Glucose, Serum 104 mg/dL (Abnormal) Range: 65-99 :44 HEPATIC FUNCTION PANEL (74266) Comments: PATIENT WAS FASTINGPERFORMED BY: LabCoUniversity HospitalTyhseq8207 [facility] [id number] Bilirubin, Direct 0.14 mg/dL (Normal) Range: 0.00-0.40 :44 LIPID PANEL (91772) Comments: PATIENT WAS FASTINGPERFORMED BY: [employer] Kpelky9089 [facility] [id number] LDL/HDL Ratio 2.3 {ratio_units} (Normal) Range: 0.0-3.2 HDL Cholesterol 45 mg/dL (Normal) Comments: According to ATP-III Guidelines, HDL-C >59 mg/dL is considered anegative risk factor for CHD. LDL Cholesterol Calc 104 mg/dL (Abnormal) Range: 0-99 Triglycerides 105 mg/dL (Normal) Range: 0-149 VLDL Cholesterol Alexander 21 mg/dL (Normal) Range: 5-40 Cholesterol, Total 170 mg/dL (Normal) Range: 100-199 12-Meq-182940:45 BILAT SCRN DIGITAL & CAD Radiology Report See Note (Normal) Comments: Exam Number: [id number] DIGITAL BILATERAL MAMMOGRAM Digital oblique and craniocaudal views were obtained. Comparison ismade with the prior examination dated July 31, 2008.Interpretation was made with the benefit of the CAD system. There is a small amount of fibroglandular tissue. No dominant masslesion is seen. No cluster of microcalcification is present. Theoverlying skin is not thickened. The re has been no change since priorexamination. IMPRESSION1. There has been no change since prior examination. 2. Routine annual mammographic followup is suggested.3. BIRADS Category 1, negative. A le tter regarding the results has been sent to the patient. This interpretation was rendered by a radiologist certified under theMammography Quality Standards Act of 1992 (MQSA). The mammograms werealso examined with computer-aided detection software ([employer], [employer] Reported By: ARJUN WEATHERS 10-Fpu-191062:42 DEXA BONE DENSITY STUDY () Radiology Report See Note (Normal) Comments: Exam Number: [id number] DEXA BONE DENSITY STUDY A dexa scan was obtained. At the level of the lumbar spine, thepatient's bone mineral density measured 0.914 g per cm2. This givesthe patient a T-score of -2.2 and a Z-score of -0.8. This isconsistent with osteopenia. Since prior examination dated September, the bone mineral density has increased by 17.5%. At the left femoral neck, the patie nt's mean bone mineral densitymeasures 0.711 g per cm2. This gives the patient a T-score of -2.4and a Z-score of -1. This is consistent with osteopenia. Since priorexamination dated October 11, 2005 , there has been a decrease in theamount of bone mineral density of approximately -9.8%. Treatment isadvised. Reported By: ARJUN WEATHERS 4-Ssk-270582:04 CTA ABDOMEN W/WO CONTRAST Radiology Report See Note (Normal) Comments: Exam Number: [id number] CT ANGIOGRAM ABDOMEN WITH CONTRAST HISTORY Uncontrolled hypertension. Abnormal renal ultrasound. TECHNIQUE Multiplanar CT angiogram abdomen with contrast images were obtainedaf ter intravenous injection of 100 mL of Isovue 370. No oral contrastwas given for this study. FINDINGSThere are scattered atherosclerotic calcifications at abdominal aorta.No evidence of aneurysm. Or igin of celiac trunk, superior mesenteric artery, inferior mesenteric artery are patent with no evidence ofhigh-grade stenosis. Left renal artery demonstrated atheroscleroticcalcifications at its origi n, however no evidence of stenosis. Rightrenal artery demonstrated no evidence of atheroscleroticcalcifications, however appears to be mildly narrowed at its ostium orno definite evidence of high-grade stenosis. Both kidneysconcentrated and excreted contrast normally. Normal size of bothkidneys is noted. The liver, spleen, pancreas, bilateral adrenal glands, gallbladder areunremarkable. No sign ificant lymphadenopathy. Normal appendix. Images were onlyobtained up to mid pelvic region. Multilevel degenerative changes at lumbar spine most prominent atL5-S1 facet joints, left much more promin ent than right side. However, there was no significant neural foraminal narrowing or spinalcanal narrowing. IMPRESSION 1. Atherosclerotic disease at abdominal aorta and its branches,however no eviden ce of high-grade stenosis at renal arteries or othermajor abdominal aorta branches. 2. Mild atherosclerotic calcifications at origin of left renalartery, however no definite evidence of stenosis. Mil d narrowing atostium of right renal artery, however no evidence of associatedatherosclerotic calcifications. Both kidneys concentrated andexcreted contrast normally. Reported By: Real Monk 68-Rum-57201:33 Vitamin D Hydroxy (04186) Comments: PATIENT WAS FASTINGPERFORMED BY: KAILA LabCoUniversity HospitalFwxbca5090 [facility] [id number] Vitamin D, 25-Hydroxy 35.2 ng/mL (Normal) Range: 32.0-100.0 Comments: Recent studies consider the lower limit of 32.0 ng/mL to be athreshold for optimal health.Harman GALVAN. J Nutr. 2004;135(2):317-22. 69-Fld-65081:33 METABOLIC PANEL, Comments: PATIENT WAS FASTINGPERFORMED BY: KAILA [facility] Efzpdx6068 [facility] [id number] Information: [id number] COMPREHENSIVE (57754) ALT (SGPT) 23 [iU]/L (Normal) Range: 0-40 AST (SGOT) 22 [iU]/L (Normal) Range: 0-40 A/G Ratio 1.7 (Normal) Range: 1.1-2.5 Albumin, Serum 4.3 g/dL (Normal) Range: 3.5-4.8 Alkaline Phosphatase, S 82 [iU]/L (Normal) Range: 25-165 Bilirubin, Total 0.4 mg/dL (Normal) Range: 0.1-1.2 Calcium, Serum 9.6 mg/dL (Normal) Range: 8.6-10.2 Carbon Dioxide, Total 23 mmol/L (Normal) Range: 20-32 Chloride, Serum 103 mmol/L (Normal) Range: 97-108 Globulin, Total 2.6 g/dL (Normal) Range: 1.5-4.5 Potassium, Serum 3.9 mmol/L (Normal) Range: 3.5-5.2 Protein, Total, Serum 6.9 g/dL (Normal) Range: 6.0-8.5 BUN/Creatinine Ratio 18 (Normal) Range: 8-27 eGFR AfricanAmerican >59 mL/min/1.73 Comments: Note: Persistent reduction for 3 months or more in an eGFR<60 mL/min/1.73 m2 defines CKD. Patients with eGFR values>/=60 mL/min/1.73 m2 may also have CKD if evidence of persistentproteinuria is (Normal) present. Additional information may be found [email or web address]. Sodium, Serum 141 mmol/L (Normal) Range: 135-145 Creatinine, Serum 0.82 mg/dL (Normal) Range: 0.57-1.00 eGFR >59 mL/min/1.73 (Normal) BUN 15 mg/dL (Normal) Range: 5-26 Glucose, Serum 104 mg/dL (Abnormal) Range: 65-99 :33 LIPID PANEL (67005) Comments: PATIENT WAS FASTINGPERFORMED BY: ZAP Pqtago7641 [facility] [id number] Cholesterol, Total 180 mg/dL (Normal) Range: 100-199 HDL Cholesterol 49 mg/dL (Normal) Comments: According to ATP-III Guidelines, HDL-C >59 mg/dL is considered anegative risk factor for CHD. LDL Cholesterol Calc 112 mg/dL (Abnormal) Range: 0-99 LDL/HDL Ratio 2.3 {ratio_units} (Normal) Range: 0.0-3.2 Triglycerides 95 mg/dL (Normal) Range: 0-149 VLDL Cholesterol Alexander 19 mg/dL (Normal) Range: 5-40 :29 Comp. Metabolic Panel (14) Comments: PATIENT WAS FASTINGPERFORMED BY: ZAP Cefpvf8856 [facility] [id number] A/G Ratio 1.6 (Normal) Range: 1.1-2.5 Albumin, Serum 4.1 g/dL (Normal) Range: 3.5-4.8 Alkaline Phosphatase, S 76 [iU]/L (Normal) Range: 25-165 ALT (SGPT) 19 [iU]/L (Normal) Range: 0-40 AST (SGOT) 25 [iU]/L (Normal) Range: 0-40 Bilirubin, Total 0.5 mg/dL (Normal) Range: 0.1-1.2 Globulin, Total 2.5 g/dL (Normal) Range: 1.5-4.5 BUN 13 mg/dL (Normal) Range: 5-26 BUN/Creatinine Ratio 16 (Normal) Range: 8-27 Calcium, Serum 9.1 mg/dL (Normal) Range: 8.5-10.6 Carbon Dioxide, Total 26 mmol/L (Normal) Range: 20-32 Chloride, Serum 105 mmol/L (Normal) Range: 97-108 Creatinine, Serum 0.81 mg/dL (Normal) Range: 0.57-1.00 eGFR >59 mL/min/1.73 (Normal) eGFR AfricanAmerican >59 mL/min/1.73 Comments: Note: Persistent reduction for 3 months or more in an eGFR<60 mL/min/1.73 m2 defines CKD. Patients with eGFR values>/=60 mL/min/1.73 m2 may also have CKD if evidence of persistentproteinuria is (Normal) present. Additional information may be found [email or web address]. Glucose, Serum 96 mg/dL (Normal) Range: 65-99 Potassium, Serum 4.2 mmol/L (Normal) Range: 3.5-5.2 Protein, Total, Serum 6.6 g/dL (Normal) Range: 6.0-8.5 Sodium, Serum 142 mmol/L (Normal) Range: 135-145 :29 Lipid Panel With LDL/HDL Comments: PATIENT WAS FASTINGPERFORMED BY: Ro[employer] Teeth70 Excel EnergyMaria [facility] [id number] Ratio Cholesterol, Total 156 mg/dL (Normal) Range: 100-199 HDL Cholesterol 44 mg/dL (Normal) Comments: According to ATP-III Guidelines, HDL-C >59 mg/dL is considered anegative risk factor for CHD. LDL Cholesterol Calc 83 mg/dL (Normal) Range: 0-99 LDL/HDL Ratio 1.9 {ratio_units} Range: 0.0-3.2 (Normal) Triglycerides 143 mg/dL (Normal) Range: 0-149 VLDL Cholesterol Alexander 29 mg/dL (Normal) Range: 5-40 Vitamin D, 25-Hydroxy 49.0 ng/mL (Normal) Comments: PATIENT WAS FASTINGPERFORMED BY: ZAP Ijishw2928 [facility] [id number] :29 Range: 32.0-100.0 Comments: Recent studies consider the lower limit of 32.0 ng/mL to be athreshold for optimal health.Harman GALVAN. J Nutr. 2004;135(2):317-22. D-DIMER QUANT <200 ng/mL (Normal) Comments: NORMAL D-Dimer level indicates no DVT or PE. 0:05 TROPONIN-I < 0.04 ng/mL Comments: TROPONIN-I EXPECTED VALUES < 0.50 NEGATIVE 0.50 - 1.49 INDETERMINANT > OR = 1.50 SUGGEST GA 0:05 (Normal) VIT D,25 97163 16.5 ng/mL Range: 32.0-100.0 0:05 (Abnormal) Comments: Recent studies consider the lower limit of 32.0 ng/mL to dulce maria threshold for optimal health.Harman GALVAN. J Nutr. 2004;135(2):317- 22.Performed At: [address] [id number] VITAMIN B12 403 pg/mL (Normal) Range: 211-911 0:05 23-Pfz-509210:38 Microscopic Examination Comments: PATIENT WAS FASTINGPERFORMED BY: TravelAI Fufzjq3728 [facility] [id number] Bacteria Few (Normal) Epithelial Cells (non renal) 0-10 {/hpf} (Normal) Range: 0 - 10 Mucus Threads Present (Normal) RBC 0-3 {/hpf} (Normal) Range: 0 - 3 WBC 6-10 {/hpf} (Abnormal) Range: 0 - 5 66-Ofg-861975:38 URINALYSIS W/O MICRO (44624) Comments: PATIENT WAS FASTINGPERFORMED BY: TravelAI [address] [place] [address] [id number] Appearance Clear (Normal) Bilirubin Negative (Normal) Glucose Negative (Normal) Ketones Negative (Normal) Microscopic Examination See below: (Normal) Nitrite, Urine Negative (Normal) Occult Blood Negative (Normal) pH 6.0 (Normal) Range: 5.0-7.5 Protein Trace (Normal) Specific Brandon 1.022 (Normal) Range: 1.005-1.030 Urine-Color Yellow (Normal) Urobilinogen,Semi-Qn 0.2 mg/dL (Normal) Range: 0.0-1.9 WBC Esterase 1+ (Abnormal) :38 TSH (01167) Comments: PATIENT WAS FASTINGPERFORMED BY: Venyo[address] [id number] TSH 2.313 {uIU/mL} (Normal) Range: 0.450-4.500 :38 CBC WITH MANUAL DIFF (36646) Comments: PATIENT WAS FASTINGClinical Information: ADD DRAW FEE [id number] ADD [id number] PERFORMED BY: LabCoUniversity HospitalUpxrtl5987 [facility] [id number] Baso (Absolute) 0.0 {x10E3/uL} (Normal) Range: 0.0-0.2 Basos 0 % (Normal) Range: 0-3 Eos 1 % (Normal) Range: 0-7 Eos (Absolute) 0.1 {x10E3/uL} (Normal) Range: 0.0-0.4 Hematocrit 41.8 % (Normal) Range: 34.0-44.0 Hemoglobin 14.2 g/dL (Normal) Range: 11.5-15.0 Lymphs 23 % (Normal) Range: 14-46 Lymphs (Absolute) 2.0 {x10E3/uL} (Normal) Range: 0.7-4.5 MCH 31.6 pg (Normal) Range: 27.0-34.0 MCHC 34.1 g/dL (Normal) Range: 32.0-36.0 MCV 93 fL (Normal) Range: 80-98 Monocytes 5 % (Normal) Range: 4-13 Monocytes(Absolute) 0.4 {x10E3/uL} (Normal) Range: 0.1-1.0 Neutrophils 71 % (Normal) Range: 40-74 Neutrophils (Absolute) 6.3 {x10E3/uL} (Normal) Range: 1.8-7.8 Platelets 196 {x10E3/uL} (Normal) Range: 140-415 RBC 4.49 {x10E6/uL} (Normal) Range: 3.80-5.10 RDW 13.8 % (Normal) Range: 11.7-15.0 WBC 8.9 {x10E3/uL} (Normal) Range: 4.0-10.5 56-Pyl-035318:38 HEPATIC FUNCTION PANEL Comments: PATIENT WAS FASTINGPERFORMED BY: LabCoUniversity HospitalMbipqx1730 [facility] [id number] (84394) Albumin, Serum 4.4 g/dL (Normal) Range: 3.5-4.8 Alkaline Phosphatase, S 85 [iU]/L (Normal) Range: 25-165 ALT (SGPT) 13 [iU]/L (Normal) Range: 0-40 AST (SGOT) 15 [iU]/L (Normal) Range: 0-40 Bilirubin, Direct 0.12 mg/dL (Normal) Range: 0.00-0.40 Bilirubin, Total 0.4 mg/dL (Normal) Range: 0.1-1.2 Protein, Total, Serum 6.7 g/dL (Normal) Range: 6.0-8.5 29-Pqx-590131:38 LIPID PANEL (41100) Comments: PATIENT WAS FASTINGPERFORMED BY: [facility]Corewell [facility]6370 [facility] [id number] Cholesterol, Total 161 mg/dL (Normal) Range: 100-199 HDL Cholesterol 47 mg/dL (Normal) Comments: According to ATP-III Guidelines, HDL-C >59 mg/dL is considered anegative risk factor for CHD. LDL Cholesterol Calc 97 mg/dL (Normal) Range: 0-99 LDL/HDL Ratio 2.1 {ratio_units} (Normal) Range: 0.0-3.2 Triglycerides 85 mg/dL (Normal) Range: 0-149 VLDL Cholesterol Alexander 17 mg/dL (Normal) Range: 5-40 31-Jul-20087:35 BILAT SCRN DIGITAL & CAD Radiology Report See Note (Normal) Comments: Exam Number: [id number] BILATERAL SCREENING DIGITAL MAMMOGRAM CLINICAL INFORMATIONScreening. Bilateral digital mammography was performed as a screening exam. Standard CC and MLO views were ob tained. The current study is compared to the previous examinations of October 11, 2005, and August 20, 2007. FINDINGSThere has been no significant change in the overall appearance of thebreasts. There are scatte red fibroglandular elements bilaterally. Nodominant masses are evident and no suspicious groups of calcificationsare seen. There are benign calcifications bilaterally includingvascular calcifications. No areas of spiculation or distortion arefound. IMPRESSION1. Stable appearance of the breasts with no specific mammographicevidence of malignancy. Annual mammography is recommended.2. BIRADS 2 wi th 1-year followup. A letter regarding the results has been sent to the patient. This interpretation was rendered by a radiologist certified underthe Mammography Quality Standards Act of 1992 (MQSA). T he mammogramswere also examined with computer-aided detection software([employer] Reported By: DRE BEVERLY M.D. 60-Ndf-965690:47 KNEE,1 OR 2 VIEWS Radiology Report See Note (Normal) Comments: Exam Number: [id number] LEFT KNEE - 4 VIEWS CLINICAL INFORMATIONOsteoarthritis. 4 images of the left knee were obtained. There is no acute bonyabnormality. No joint effusion is seen. There is diffuse osteopenia.There is narrowing of the medial joint compartment and minimalspurring at the superior articular surface of the patella. Thereappears to be some meniscal calcification present. No destructi vebone lesion is seen. IMPRESSIONFindings appear consistent with mild osteoarthritis of the left knee. Reported By: DRE BEVERLY M.D. 73-Awu-348847:23 URINE TEA CULTURE (KOLBY COL Comments: PATIENT NOT FASTINGClinical Information: SRC:UR ADD [id number] PERFORMED BY: Rooster [employer]70 [facility] [place] [id number] COUNT) (72808) Result 1 NG36 (Normal) Comments: No growth in 36 - 48 hours. Urine Culture,Comprehensive Final report (Normal) 17-Lyk-009723:51 Urinalysis, Office (36999) UA - BILIRUBIN Negative (Normal) UA - BLOOD Non Hemolyzed Trace (Normal) UA - GLUCOSE Negative (Normal) UA - KETONES Negative mg/dL (Normal) UA - LEUKOCYTE ESTERASE Trace (Normal) UA - NITRITE Negative (Normal) UA - PH 6.0 (Normal) UA - PROTEIN Negative mg/dL (Normal) UA - SPECIFIC GRAVITY 1.015 (Normal) URINE UROBILINGN KOLBY TIMED Normal mg/dL (Normal) 28-Xkq-12839:49 CBC With Differential/Platelet Comments: PATIENT WAS FASTINGPERFORMED BY: [employer]70 [employer] [place] [id number] Baso (Absolute) 0.0 {x10E3/uL} (Normal) Range: 0.0-0.2 Basos 0 % (Normal) Range: 0-3 Eos 2 % (Normal) Range: 0-7 Eos (Absolute) 0.1 {x10E3/uL} (Normal) Range: 0.0-0.4 Hematocrit 39.9 % (Normal) Range: 34.0-44.0 Hemoglobin 13.6 g/dL (Normal) Range: 11.5-15.0 Lymphs 30 % (Normal) Range: 14-46 Lymphs (Absolute) 1.9 {x10E3/uL} (Normal) Range: 0.7-4.5 MCH 31.2 pg (Normal) Range: 27.0-34.0 MCHC 34.2 g/dL (Normal) Range: 32.0-36.0 MCV 91 fL (Normal) Range: 80-98 Monocytes 9 % (Normal) Range: 4-13 Monocytes(Absolute) 0.6 {x10E3/uL} (Normal) Range: 0.1-1.0 Neutrophils 59 % (Normal) Range: 40-74 Neutrophils (Absolute) 3.7 {x10E3/uL} (Normal) Range: 1.8-7.8 Platelets 217 {x10E3/uL} (Normal) Range: 140-415 RBC 4.37 {x10E6/uL} (Normal) Range: 3.80-5.10 RDW 14.2 % (Normal) Range: 11.7-15.0 WBC 6.2 {x10E3/uL} (Normal) Range: 4.0-10.5 :49 Comp. Metabolic Panel (14) Comments: PATIENT WAS FASTINGPERFORMED BY: LabCoUniversity HospitalHzhmxd4600 [facility] [id number] A/G Ratio 1.8 (Normal) Range: 1.1-2.5 Albumin, Serum 4.2 g/dL (Normal) Range: 3.5-4.8 Alkaline Phosphatase, S 78 [iU]/L (Normal) Range: 25-165 ALT (SGPT) 17 [iU]/L (Normal) Range: 0-40 AST (SGOT) 19 [iU]/L (Normal) Range: 0-40 Bilirubin, Total 0.5 mg/dL (Normal) Range: 0.1-1.2 BUN 17 mg/dL (Normal) Range: 5-26 BUN/Creatinine Ratio 21 (Normal) Range: 8-27 Calcium, Serum 9.4 mg/dL (Normal) Range: 8.5-10.6 Carbon Dioxide, Total 24 mmol/L (Normal) Range: 20-32 Chloride, Serum 107 mmol/L (Normal) Range: 97-108 Creatinine, Serum 0.80 mg/dL (Normal) Range: 0.50-1.50 Globulin, Total 2.4 g/dL (Normal) Range: 1.5-4.5 Glom Filt Rate, Est >60 mL/min (Normal) Range: 60-128 Glucose, Serum 99 mg/dL (Normal) Range: 65-99 If -Micronesian >60 mL/min (Normal) Range: 60-128 Comments: Note: Persistent reduction for 3 months or more in an eGFR<60 mL/min/1.73 m2 defines CKD. Patients with eGFR values>/=60 mL/min/1.73 m2 may also have CKD if evidence of persistentproteinuria is present. Additional information may be found [email or web address]. Potassium, Serum 4.0 mmol/L (Normal) Range: 3.5-5.2 Protein, Total, Serum 6.6 g/dL (Normal) Range: 6.0-8.5 Sodium, Serum 144 mmol/L (Normal) Range: 135-145 :49 Lipid Panel With LDL/HDL Comments: PATIENT WAS FASTINGPERFORMED BY: Whistlestop[facility] [id number] Ratio Cholesterol, Total 164 mg/dL (Normal) Range: 100-199 Comment SPRCS (Normal) Comments: If initial LDL-cholesterol result is >100 mg/dL, assess forrisk factors. HDL Cholesterol 42 mg/dL (Normal) Range: 40-59 LDL Cholesterol Calc 102 mg/dL (Abnormal) Range: 0-99 LDL/HDL Ratio 2.4 {ratio_units} (Normal) Range: 0.0-3.2 Triglycerides 101 mg/dL (Normal) Range: 0-149 VLDL Cholesterol Alexander 20 mg/dL (Normal) Range: 5-40 :49 Microscopic Examination Comments: PATIENT WAS FASTINGPERFORMED BY: [facility] Teeth70 [facility] [id number] Bacteria Few (Normal) Epithelial Cells (non 0-10 {/hpf} Range: 0 - 10 renal) (Normal) Mucus Threads Present (Abnormal) RBC 0-3 {/hpf} (Normal) Range: 0 - 3 WBC 6-10 {/hpf} Range: 0 - 5 (Abnormal) TSH 2.465 {uIU/mL} Comments: PATIENT WAS FASTINGPERFORMED BY: VenyoUniversity HospitalSecveb1388 [facility] [id number] :49 (Normal) Range: 0.350-5.500 Comments: Adult TSH concentrations below 5.5 uIU/mL do not rule out the presence of subclinical hypothyroidism. . EFFECTIVE Apr the adult reference interval for TSH will be changing to 0.450 - 4.500 uIU/mL. :49 Urinalysis, Routine Comments: PATIENT WAS FASTINGPERFORMED BY: VenyoUniversity HospitalXcvamo8586 [facility] [id number] Appearance Clear (Normal) Bilirubin Negative (Normal) Glucose Negative (Normal) Ketones Negative (Normal) Microscopic Examination See below: (Normal) Nitrite, Urine Negative (Normal) Occult Blood Negative (Normal) pH 6.0 (Normal) Range: 5.0-7.5 Protein Negative (Normal) Specific Brandon 1.020 (Normal) Range: 1.005-1.030 Urine-Color Yellow (Normal) Urobilinogen,Semi-Qn 0.2 mg/dL (Normal) Range: 0.0-1.9 WBC Esterase 2+ (Abnormal) :03 DEXA BONE DENSITY STUDY () Radiology Report See Note (Normal) Comments: Exam Number: [id number] BONE DENSITOMETRY HISTORYOsteoporosis. TECHNIQUE Bone densitometry of the lumbar spine and left hip was performed. Thebest criteria for evaluation of osteoporosis is the T-va lue whichrepresents the comparison of the patient's bone mass to an expectedpeak bone mass. For most patients, the mean T-value of L1 through L4and the T-value of the total left hip are most useful. FINDINGSIn this patient, the mean T-value of L1 through L4 is -2.8 which is inthe range of osteoporosis. Bone mineral density is measured at 10.4%greater than in 2003, and 1.1% less than in 2006. Digi brennan lateralview for evaluation of vertebral deformity only demonstrates slightconcavity of multiple vertebral body end plates but no frankcompression fracture is present. T-value of the left femoral n iglesia is-3.2 which is in the range of osteoporosis. T-value of the total lefthip is -2.2 which is in the range of osteopenia. The WHOclassification is now based on the T-value of the femoral neck. There fore, there is osteoporosis of the left hip. Bone mineraldensity is measured at 1.9% less than in 2003, and 5.1% less than se2154. IMPRESSIONThere is osteoporosis of the lumbar spine and left hip. Reported By: LAYO ROTH M.D. 29-Oct-20078:16 METABOLIC PANEL, BASIC (92379) Comments: PATIENT WAS FASTINGClinical Information: ADD DRAW FEE [id number] ADD [id number] PERFORMED BY: LabCoUniversity HospitalVuflje3957 [facility] [id number] BUN 15 mg/dL (Normal) Range: 5-26 BUN/Creatinine Ratio 19 (Normal) Range: 8-27 Calcium, Serum 9.1 mg/dL (Normal) Range: 8.5-10.6 Carbon Dioxide, Total 27 mmol/L (Normal) Range: 20-32 Chloride, Serum 104 mmol/L (Normal) Range: 96-109 Creatinine, Serum 0.8 mg/dL (Normal) Range: 0.5-1.5 Glucose, Serum 94 mg/dL (Normal) Range: 65-99 Potassium, Serum 4.0 mmol/L (Normal) Range: 3.5-5.5 Sodium, Serum 141 mmol/L (Normal) Range: 135-148 41-Eso-956709:12 UNILAT DIA DIGITAL & CAD Radiology Report See Note (Normal) Comments: Exam Number: [id number] MAMMOGRAM, UNILATERAL LEFT DIAGNOSTIC DIGITAL AND CAD HISTORYRoutine screening. Full field digital images were obtained in left true lateral, leftmediolateral oblique spot myke sully views and left craniocaudalmagnification spot view. The current study is compared to the examinations of July. The apparent focal density seen in the upper outer quadrant of the left breast is not a persistent finding. The possible calcificationseen in the outer left breast appear to be small parenchymal densitieson the magnification view. There is no skin thickening or retraction ,architectural distortion or dominant mass. If there is no suspiciouspalpable abnormality, followup mammogram in 1 year is recommended. IMPRESSIONThere is no radiographic evidence of malignancy ident ified. FINAL ASSESSMENTBenign findings. BIRADS Category 2. A letter regarding these results has been sent to the patient. This interpretation was rendered by a radiologist certified under theMammogr aphy Quality Standards Act of 1992 (MQSA). The mammograms werealso examined with computer-aided detection software ([employer], [employer] Reported By: LAYO ROTH M.D. 51-Wix-990256:21 BILAT SCRN DIGITAL & CAD Radiology Report See Note (Normal) Comments: Exam Number: [id number] MAMMOGRAM, BILATERAL SCREENING DIGITAL AND CAD HISTORYRoutine screening. Full field digital images were obtained in mediolateral oblique andcraniocaudal projections. CAD images w ere reviewed. The current study is compared to the examinations of January 2004 andSeptember 2005. There is moderately dense fibroglandular parenchyma present. There isno skin thickening or retraction. Ther e are scattered calcificationspresent. In the left breast in the anterior depth, there is anapparent group of calcifications seen laterally. A magnificationspot view of this finding is recommended. A lso seen on the left is adensity in the upper breast which appears irregular and isquestionably associated with architectural distortion. For furtherevaluation of this finding, left true lateral and sp ot mediolateraloblique views are recommended. IMPRESSIONThere are changes on the left for which additional views arerecommended. FINAL ASSESSMENTNeed additional imaging evaluation. BIRADS Category 0. A letter regarding these results has been sent to the patient. This interpretation was rendered by a radiologist certified under theMammography Quality Standards Act of 1992 (MQSA). The mammograms wer ealso examined with computer-aided detection software ([facility], [employer] Reported By: LAYO ROTH M.D. :06 BMP BUN 13 mg/dL (Normal) Range: 7-18 BUN/CRE 18.6 {RATIO} (Normal) Range: 10-20 CA 8.5 mg/dL (Normal) Range: 8.5-10.1 CL 105 mmol/L (Normal) Range: 98-107 CO2 28.1 mmol/L (Normal) Range: 21.0-32.0 Comments: Please Note Reference Interval Change CREAT,SERUM 0.7 mg/dL (Normal) Range: 0.6-1.0 GAP 8 (Normal) Range: 5-15 GLU 85 mg/dL (Normal) Range: 70-110 K 3.4 mmol/L (Abnormal) Range: 3.5-5.1 NA 141 mmol/L (Normal) Range: 136-145 :12 CBCD,SMEAR DIFF MONOCYTE 8 % (Normal) Range: 0-10 PLT EST SeeNote (Normal) Comments: Result: ADEQUATE RED CELL MORPH SeeNote {NORMAL} (Normal) Comments: Result: NORM C&C BAND 1 % (Normal) Range: 0-5 CELLS COUNTED 100 (Normal) HCT 39.1 % (Normal) Range: 37-47 HGB 13.5 g/dL (Normal) Range: 12.0-16.0 LYMPH 50 % (Abnormal) Range: 19-41 MCH 32.3 pg (Abnormal) Range: 27.0-32.0 MCHC 34.5 g/dL (Normal) Range: 32-36 MCV 93.7 fL (Normal) Range: 81-99 PLT 223 K/mm3 (Normal) Range: 150-450 RBC 4.18 {M/mm3} (Abnormal) Range: 4.2-5.4 RDW 13.2 % (Normal) Range: 11.6-14.6 SEGS 41 % (Abnormal) Range: 47-70 WBC 5.6 K/mm3 (Normal) Range: 4.4-11.0 :12 COMP METABOLIC A/G 1.3 {RATIO} (Normal) Range: 0.9-2.4 ALB 3.5 g/dL (Normal) Range: 3.4-5.0 ALK P 85 U/L (Normal) Range: 50-136 ALT 33 [iU]/L (Normal) Range: 30-65 AST 19 U/L (Normal) Range: 15-37 BUN 10 mg/dL (Normal) Range: 7-18 BUN/CRE 12.5 {RATIO} (Normal) Range: 10-20 CA 8.4 mg/dL (Abnormal) Range: 8.5-10.1 CL 103 mmol/L (Normal) Range: 98-107 CO2 29.6 mmol/L (Normal) Range: 21.0-32.0 Comments: Please Note Reference Interval Change CREAT,SERUM 0.8 mg/dL (Normal) Range: 0.6-1.0 GAP 5 (Normal) Range: 5-15 GLOB 2.8 g/dL (Normal) Range: 2.7-4.2 Comments: Please Note Reference Interval Change GLU 89 mg/dL (Normal) Range: 70-110 K 3.3 mmol/L (Abnormal) Range: 3.5-5.1 NA 138 mmol/L (Normal) Range: 136-145 T BILI 0.43 mg/dL (Normal) Range: 0.00-1.00 T PROT 6.3 g/dL (Abnormal) Range: 6.4-8.2 :12 D BILI 0.09 mg/dL (Normal) Range: 0.00-0.30 :12 LIPID CHOL 118 mg/dL (Normal) Comments: <200 mg/dL Desirable 200-240 mg/dL Borderline >240 mg/dL High Risk HDL 38 mg/dL (Normal) Comments: Reference Range HDL <40 mg/dL Low HDL Cholesterol HDL >or= 60 mg/dL High HDL Cholesterol LDL 59 mg/dL (Normal) Range: 0-130 TRIG 107 mg/dL (Normal) Comments: Serum Triglycerides Reference Interval Normal <150 mg/dL Borderline high 150 - 199 mg/dL High 200 - 499 mg/dL Very High > or = 500 mg/dL VLDL 21 mg/dL (Normal) Range: 5-40 :12 ROUTINE UA BILIRUBIN URINE SeeNote (Normal) Comments: Result: NEGATIVE CLARITY CLEAR (Normal) COLOR YELLOW (Normal) GLUCOSE, UR SeeNote (Normal) Comments: Result: NEGATIVE KETONE UR SeeNote mg/dL (Normal) Comments: Result: NEGATIVE LEUK ESTERASE 1+ (Abnormal) NITRITE UR SeeNote (Normal) Comments: Result: NEGATIVE OCCULT BLOOD-UR SeeNote (Normal) Comments: Result: NEGATIVE pH UR 7.0 (Normal) Range: 5.0-8.0 PROT DIPSTX SeeNote (Normal) Comments: Result: NEGATIVE SP.GR. DIPSTX 1.015 (Normal) Range: 1.002-1.030 UROBILI 0.2 EU/dl (Normal) Range: 0.2 - 1.0 66-Rua-43690:12 TSH 3.09 {uIU/mL} (Normal) Range: 0.34-4.82 8-Glj-405494:45 Urinalysis, Office (24322) UA - BILIRUBIN Negative (Normal) UA - BLOOD Hemolyzed Trace (Normal) UA - GLUCOSE Negative (Normal) UA - KETONES Negative mg/dL (Normal) UA - LEUKOCYTE ESTERASE Moderate (Normal) UA - NITRITE Negative (Normal) UA - PH 5.0 (Normal) UA - PROTEIN Negative mg/dL (Normal) UA - SPECIFIC GRAVITY 1.020 (Normal) URINE UROBILINGN KOLBY TIMED Normal mg/dL (Normal) 30-Jul-20060:00 CULTURE, URINE Comments: The date and/or time of collection was not indicated on therequisition as required by state and federal law. The dateof receipt of the specimen was used as the collection dateif not supplied. URINE CULTURE See Note {CFU/mL} (Normal) Comments: COLONY COUNT 11,000-25,000 ORGANISM 1: MIXED GRAM POSITIVE ORGANISMS Plan of Care Name Dates Details Instructions Hypertensive heart disease without congestive heart failure : Eprescribed prescriptions (G8553) Indication: Hypertensive heart disease without congestive heart failure Gastroesophageal reflux disease without esophagitis : Eprescribed prescriptions (G8553) Indication: Gastroesophageal reflux disease without esophagitis Impaired fasting glucose : Eprescribed prescriptions (G8553) Indication: Impaired fasting glucose [facility] WELLNESS EXAM : Eprescribed prescriptions (G8553) Indication: [facility] WELLNESS EXAM Hypertensive heart disease without congestive heart failure : Eprescribed prescriptions (G8553) Indication: Hypertensive heart disease without congestive heart failure Pre-operative exam (Renamed from Encounter for pre-operative examination) : Eprescribed prescriptions (G8553) Indication: Pre-operative exam (Renamed from Encounter for pre-operative examination) Impaired fasting glucose : Eprescribed prescriptions (G8553) Indication: Impaired fasting glucose Impaired fasting glucose : Eprescribed prescriptions (G8553) Indication: Impaired fasting glucose Impaired fasting glucose : Blood Pressure: blood pressure Indication: Impaired fasting glucose Impaired fasting glucose : Eprescribed prescriptions (G8553) Indication: Impaired fasting glucose Herpes zoster without complication : Eprescribed prescriptions (G8553) Indication: Herpes zoster without complication [facility] Wellness Physical : Eprescribed prescriptions (G8553) Indication: [facility] Wellness Physical Impaired fasting glucose : Eprescribed prescriptions (G8553) Indication: Impaired fasting glucose Impaired fasting glucose : Eprescribed prescriptions (G8553) Indication: Impaired fasting glucose Upper respiratory tract infection, unspecified type : Eprescribed prescriptions (G8553) Indication: Upper respiratory tract infection, unspecified type Impaired fasting glucose : Diet, Exercise, and Wt loss Indication: Impaired fasting glucose Impaired fasting glucose : Eprescribed prescriptions (G8553) Indication: Impaired fasting glucose Urinary frequency : Eprescribed prescriptions (G8553) Indication: Urinary frequency Impaired fasting glucose : Eprescribed prescriptions (G8553) Indication: Impaired fasting glucose Need for prophylactic vaccination and inoculation against influenza : Eprescribed prescriptions (G8553) Indication: Need for prophylactic vaccination and inoculation against influenza Impaired fasting glucose : Eprescribed prescriptions (G8553) Indication: Impaired fasting glucose Encounter for Medicare annual wellness exam : fall reduction handout Indication: Encounter for Medicare annual wellness exam Encounter for Medicare annual wellness exam : elderly packet given Indication: Encounter for Medicare annual wellness exam Encounter for screening for malignant neoplasm of cervix : *Well Female Maintenance (KF) Indication: Encounter for screening for malignant neoplasm of cervix Impaired fasting glucose : Diet, Exercise, and Wt loss Indication: Impaired fasting glucose Acute sinusitis, unspecified : *Antibiotic Usage Education - Female Indication: Acute sinusitis, unspecified Urinary tract infection, site not specified : *Antibiotic Usage Education - Female Indication: Urinary tract infection, site not specified Hypertensive heart disease without congestive heart failure : High Blood Pressure (Essential Hypertension) *: blood pressure problems Indication: Hypertensive heart disease without congestive heart failure Urinary tract infection, site not specified : follow up for recheck urine 1 week after complete antibiotic Indication: Urinary tract infection, site not specified Dysuria : *Antibiotic Usage Education - Female Indication: Dysuria Dysuria : Urinary Tract Infection in Women *: bladder infection Indication: Dysuria Hearing loss, unspecified laterality : Follow up in 2 weeks Indication: Hearing loss, unspecified laterality Acute sinusitis, unspecified : *Antibiotic Usage Education - Female Indication: Acute sinusitis, unspecified Acute sinusitis, unspecified : *URI Treatment Indication: Acute sinusitis, unspecified Acute sinusitis, unspecified : *Antibiotic Usage Education - Female Indication: Acute sinusitis, unspecified Hyperglycemia : Diet, Exercise, and Wt loss Indication: Hyperglycemia Hyperglycemia : Diet, Exercise, and Wt loss Indication: Hyperglycemia Hyperglycemia : Diet, Exercise, and Wt loss Indication: Hyperglycemia Hypercholesterolemia : Diet, Exercise, and Wt loss Indication: Hypercholesterolemia Osteoporosis : *Bisphosphonate Education Indication: Osteoporosis Acute sinusitis, unspecified : Antibiotic Usage Education - Female Indication: Acute sinusitis, unspecified Hypercholesterolemia : Diet and Exercise Indication: Hypercholesterolemia Urinary frequency : Antibiotic Usage Education - Female Indication: Urinary frequency Hypertensive heart disease without congestive heart failure : Continue Current Prescription(s) Indication: Hypertensive heart disease without congestive heart failure Acute sinusitis, unspecified : *URI Treatment Indication: Acute sinusitis, unspecified Acute sinusitis, unspecified : Antibiotic Usage Education - Female Indication: Acute sinusitis, unspecified Acute sinusitis, unspecified : URI Symptoms Indication: Acute sinusitis, unspecified Bronchitis : Antibiotic Usage Education - Female Indication: Bronchitis Bronchitis : URI Symptoms Indication: Bronchitis Edema : FOLLOW UP IN 3 MONTHS Indication: Edema Abnormal Chest X-Ray : FOLLOW UP - MAKE APPT AFTER DIAGNOSTIC TESTS Indication: Abnormal Chest X-Ray Planned Observations CBC W/AUTO DIFF WBC ([id number])Indication: Hypertensive heart disease without congestive heart failure On: :25 Request METABOLIC PANEL, COMPREHENSIVE (88316)Indication: Hypertensive heart disease without congestive heart failure On: :25 Request VITAMIN B-12 (CYANOCOBALAMIN) (96537)Indication: Vitamin B 12 deficiency On: :24 Request HgA1C , Office (62270)Indication: Impaired fasting glucose On: 46-Nal-884916:13 Request MICROALBUMIN: CREATININE RATIO (33673) AND (90186)Indication: Impaired fasting glucose On: 3-Cxf-473421:26 Request CBC W/AUTO DIFF WBC (13286)Indication: Impaired fasting glucose On: 9-Voy-108697:26 Request METABOLIC PANEL, COMPREHENSIVE (61402)Indication: Impaired fasting glucose On: 5-Crq-920241:25 Request PTT (Activated Partial Thromboplastin Time) (64605)Indication: Pre-operative exam (Renamed from Encounter for pre-operative examination) On: 4-Fve-733675:10 Request PT (Prothrobim Time) (68402)Indication: Pre-operative exam (Renamed from Encounter for pre-operative examination) On: 6-Yyn-057524:10 Request URINALYSIS, W/ MICRO (48541)Indication: Pre-operative exam (Renamed from Encounter for pre-operative examination) On: 0-Cfb-349660:09 Request CBC W/AUTO DIFF WBC (50262)Indication: Pre-operative exam (Renamed from Encounter for pre-operative examination) On: 7-Zyh-951203:09 Request METABOLIC PANEL, COMPREHENSIVE (63586)Indication: Pre-operative exam (Renamed from Encounter for pre-operative examination) On: 4-Yra-887837:09 Request CBC W/AUTO DIFF WBC (26107)Indication: Impaired fasting glucose On: 29-Ytr-454888:56 Request METABOLIC PANEL, COMPREHENSIVE (69379)Indication: Impaired fasting glucose On: 88-Xsk-927610:56 Request VITAMIN B-12 (CYANOCOBALAMIN) (91536)Indication: Vitamin B 12 deficiency On: 33-Kmv-180216:56 Request HgA1C , Office (94055)Indication: Impaired fasting glucose On: 56-Bgc-565801:34 Request URINE TEA CULTURE-KOLBY COL COUNT (59377)Indication: Urinary tract infection, site not specified On: 5-Bug-026922:37 Request URINE TEA CULTURE-KOLBY COL COUNT (50516)Indication: Urinary frequency On: 30-Vkb-610101:40 Request LIPID PANEL (63977)Indication: Hypercholesterolemia On: 88-Dpo-009335:27 Request Hemoglobin Glyclated (HGB A1C) (39527)Indication: Impaired fasting glucose On: 74-Pij-688093:27 Request METABOLIC PANEL, COMPREHENSIVE (80274)Indication: Hypertensive heart disease without congestive heart failure On: 69-Zhq-585945:27 Request URINE TEA CULTURE-IDENTIFICATN (72403)Indication: Urinary frequency On: 18-Hyo-88804:43 Request HgA1C , Office (29467)Indication: Impaired fasting glucose On: 28-Oct-20149:47 Request RHEUMATOID FACTOR-QUANT (79231)Indication: Branch retinal artery occlusion of right eye On: 68-Vgv-738490:21 Request SURI (ANTINUCLEAR ANTIBODY) (78415)Indication: Branch retinal artery occlusion of right eye On: 94-Khs-123486:21 Request Protein S Profile (82423)Indication: Branch retinal artery occlusion of right eye On: 39-Eqo-762886:21 Request Protein C Profile (84246)Indication: Branch retinal artery occlusion of right eye On: Request Antiphospholipid atb (28735)Indication: Branch retinal artery occlusion of right eye On: Request ANTICOAG ANTTHROMB III & ASSAY (66634)Indication: Branch retinal artery occlusion of right eye On: Request ANTITHROMBIN III ACTIVTY (35170)Indication: Branch retinal artery occlusion of right eye On: Request CLOTTING FACTOR II (94705)Indication: Branch retinal artery occlusion of right eye On: Request Factor V Leiden (13095)Indication: Branch retinal artery occlusion of right eye On: Request Protein Electrophoresis, Serum (SPEP) (57326)Indication: Branch retinal artery occlusion of right eye On: Request UPEP (26968)Indication: Branch retinal artery occlusion of right eye On: Request C-REACTIVE PROTEIN (27220)Indication: Branch retinal artery occlusion of right eye On: Request SED RATE ERYTHROCYTE (07725)Indication: Branch retinal artery occlusion of right eye On: Request CBC W/AUTO DIFF WBC (96608)Indication: Impaired fasting glucose On: 37 Request Comments: 4 months MICROALBUMIN: CREATININE RATIO (41352) AND (10233)Indication: Impaired fasting glucose On: :37 Request Comments: 4 months LIPID PANEL (30630)Indication: Impaired fasting glucose On: 37 Request Comments: 4 mnths METABOLIC PANEL, COMPREHENSIVE (22791)Indication: Impaired fasting glucose On: :37 Request Comments: 4 months Calcium Serum (92418)Indication: Abnormal blood chemistry On: :44 Request Comments: 2 weeks URINE TEA CULTURE-KOLBY COL COUNT (91930)Indication: Urinary tract infection, site not specified On: 37-Abr-405916:28 Request SPEP (08632)Indication: Osteoporosis On: :13 Request UPEP (63094)Indication: Osteoporosis On: 88-Trw-805037:13 Request GLUCOSE TOLERANCE TEST (GTT) 2 hour (16086)Indication: Hyperglycemia On: 84-Dop-255588:07 Request Vitamin D Hydroxy (40119)Indication: Vitamin D deficiency On: 67-Bwn-72885:50 Request Vitamin D Hydroxy (57456) On: 87-Qgy-435165:58 Request ASSAY, TROPONIN, QUANTITATIVE (aka Troponin I) (49291)Indication: Chest pain On: 18-Ezp-943069:06 Request D-Dimer (15317)Indication: Chest pain On: 06-Zmk-649221:05 Request VITAMIN B-12 (CYANOCOBALAMIN) (10184)Indication: Fatigue On: 84-Rkk-238871:00 Request Vitamin D Hydroxy (32262)Indication: Osteoporosis On: 46-Kfk-03719:59 Request METABOLIC PANEL, COMPREHENSIVE (75288)Indication: Hypertensive heart disease without congestive heart failure On: :28 Request LIPID PANEL (23207)Indication: Hypercholesterolemia On: :27 Request HEPATIC FUNCTION PANEL (98960)Indication: Hypercholesterolemia On: :27 Request URINALYSIS W/O MICRO (97748)Indication: lower ext edema On: 84-Kur-388759:32 Request TSH ([id number])Indication: lower ext edema On: :32 Request CBC WITH MANUAL DIFF (63071)Indication: lower ext edema On: :32 Request METABOLIC PANEL, COMPREHENSIVE (57131)Indication: lower ext edema On: :32 Request LIPID PANEL (20305)Indication: Hypercholesterolemia On: :56 Request HEPATIC FUNCTION PANEL (78179)Indication: Hypercholesterolemia On: 79-Gwi-114321:56 Request URINALYSIS W/O MICRO (90783)Indication: Hypertensive heart disease without congestive heart failure On: :03 Request TSH (76183)Indication: Hypertensive heart disease without congestive heart failure On: :03 Request METABOLIC PANEL, COMPREHENSIVE (86650)Indication: Hypertensive heart disease without congestive heart failure On: :03 Request CBC WITH MANUAL DIFF (78243)Indication: Hypertensive heart disease without congestive heart failure On: :03 Request HEPATIC FUNCTION PANEL (68876)Indication: Hypercholesterolemia On: 8-Dnw-428963:03 Request LIPID PANEL (87731)Indication: Hypercholesterolemia On: 8-Ncz-827473:03 Request URINE TEA CULTURE-IDENTIFICATN (33609)Indication: Urinary tract infection, site not specified On: 9-Izl-341987:34 Request URINALYSIS W/O MICRO ([id number])Indication: Hypertensive heart disease without congestive heart failure On: 88-Fup-386558:20 Request TSH ([id number])Indication: Hypertensive heart disease without congestive heart failure On: 43-Ybq-595569:20 Request METABOLIC PANEL, COMPREHENSIVE (02847)Indication: Hypertensive heart disease without congestive heart failure On: 72-Lmt-149543:20 Request LIPID PANEL (77561)Indication: Hypercholesterolemia On: :19 Request CBC WITH MANUAL DIFF ([id number])Indication: Hypertensive heart disease without congestive heart failure On: 55-Xbf-489829:19 Request Planned Encounters Medical; [facility] Pre Wellness Exam (DF Nurse) - On: 31-Dec-2018 10:00 [facility] NURSE, DF Medical; [facility] Wellness Exam (Doctor) - On: 22-Jan-2019 13:30 [facility] Fast DO, Audrey A Fast DO, Audrey A Planned Procedures COMPUTED TOMOGRAPHY ANGIOGRAPHY OF On: 24-Jun-2018 Intent BOTH CAROTID ARTERIES ([id number])By: Fast DO, Audrey A Fast DO, Audrey A SCREENING DIGITAL TOMOSYNTHESIS OF On: 24-Jun-2018 Intent BREAST (65469)By: Fast DO, Audrey A Comments: dec Fast DO, Audrey A Flu Vaccine (Quadrivalent) 42379Ji: On: 24-Jun-2018 Intent Fast DO, Audrey A Fast DO, Audrey A Comments: Lot: [id number]: 03/23/19Site: L dltd, IMDose prefilled syringegiven by: CManchakVIS reviewed and ABN signed Cartoid DopplerBy: Fast DO, Audrey A On: 13-Mar-2018 Intent Fast DO, Audrey A Comments: sept ELECTROCARDIOGRAM, COMPLETE (ECG) On: 04-Dec-2017 Intent (58094)By: Fast DO, Audrey A Fast DO, Audrey A DEXA SCAN AXIAL SKELETON (20598)By: On: 04-Dec-2017 Intent Fast DO, Audrey A Fast DO, Audrey A Comments: DUE IN DECEMBER Doppler Ultrasound OtherBy: Fast DO, On: 06-Aug-2017 Intent Audrey A Fast DO, Audrey A Comments: left leg SCREENING DIGITAL TOMOSYNTHESIS OF On: 06-Aug-2017 Intent BREAST (40751)By: Fast DO, Audrey A Fast DO, Audrey A Flu Vaccine (Quadrivalent) 27299Le: On: 06-Aug-2017 Intent Fast DO, Audrey A Fast DO, Audrey A Comments: Lot #:[id number] date:03/11/18Amount given:0.5mlRoute: IMSite given: deltoidGiven by: ARABELLA Burgos Radiology - Chest- PA and LatBy: On: 02-May-2017 Intent Fast DO, Audrey A Fast DO, Audrey A Cartoid DopplerBy: Fast DO, Audrey A On: 02-May-2017 Intent Fast DO, Audrey A ELECTROCARDIOGRAM, COMPLETE (ECG) On: 02-May-2017 Intent (35110)By: Fast DO, Audrey A Fast DO, Comments: ekg- lvh with poor r wave progression no change sinus and no st/t wave changes Audrey A Flu Vaccine (Quadrivalent) 60319Zg: On: 03-Aug-2016 Intent Fast DO, Audrey A Fast DO, Audrey A Comments: FLUlot: [id number]:02/07site:Lt deltoidroute:IMdose:.5mlARABELLA VAZQUEZ Cartoid DopplerBy: Fast DO, Audrey A On: 05-Jun-2016 Intent Fast DO, Audrey A Comments: bilateral MAMMOGRAM, SCREENING, BOTH BREAST On: 05-Jun-2016 Intent ([id number])By: Fast DO, Audrey A Fast DO, Comments: nov Audrey A ELECTROCARDIOGRAM, COMPLETE (ECG) On: 05-Jun-2016 Intent (58508)By: Fast DO, Audrey A Fast DO, Comments: ekg showed normal sinus rhythym, normal axis, no acute st/t wave changes sinus edy poor rwave progression no change Audrey A Radiology - Knee - Left - Weight On: 05-Apr-2016 Intent BearingBy: Fast DO, Audrey A Fast DO, Audrey A B 12 Injection, 1000 mcg ([id number])By: On: 01-Dec-2015 Intent Fast DO, Audrey A Fast DO, Audrey A Comments: B12lot:5200exp:02/07site:lt deltroute:IMdose:ARABELLA BANSAL DEXA SCAN AXIAL SKELETON (04925)By: On: 12-Nov-2015 Intent Fast DO, Audrey A Fast DO, Audrey A MAMMOGRAM, SCREENING, BOTH BREAST On: 14-Jul-2015 Intent (07340)By: Fast DO, Audrey A Fast DO, Audrey A Cartoid DopplerBy: Fast DO, Audrey A On: 14-Jul-2015 Intent Fast DO, Audrey A Flu Vaccine (Quadrivalent) 97555Dg: On: 14-Jul-2015 Intent Fast DO, Audrey A Fast DO, Audrey A Comments: Lot #:[id number] date: 02/2016Amount given:prefilled syringeSite given:L Dltd, IMGiven by: ANA Caruso and PEDRITO signed ADMINISTRATION OF INFLUENZA VIRUS On: 14-Jul-2015 Intent VACCINE (G0008)By: Fast DO, Audrey A Fast DO, Audrey A EKG (85217)By: Fast DO, Audrey A On: 08-Jul-2014 Intent Fast DO, Audrey A Comments: ekg showed normal sinus rhythym, normal axis, no acute st/t wave changes lvh - poor r wave progresxsion no change Echo CompleteBy: Fast DO, Audrey A On: 08-Jul-2014 Intent Fast DO, Audrey A FLU VAC, SPLIT, >3 YEARS, INTRAMUSC On: 08-Jul-2014 Intent (48939)By: Fast DO, Audrey A Fast DO, Comments: Lot:[id number]:03/23/15Dose:0.5mLRoute:IMSite:L DltdGiven By:GRACIELA signed Audrey A ADMINISTRATION OF INFLUENZA VIRUS On: 08-Jul-2014 Intent VACCINE (G0008)By: Fast DO, Audrey A Fast DO, Audrey A MAMMOGRAM, SCREENING, BOTH BREAST On: 24-Jun-2014 Intent (83654)By: Fast DO, Audrey A Fast DO, Audrey A EKG (03114)By: Fast DO, Audrey A On: 24-Jun-2014 Intent Fast DO, Audrye A Comments: ekg showed normal sinus rhythym, normal axis, no acute st/t wave changes sinus edy- lvh no change in r wave Eprescribed prescriptions (G8553)By: On: 28-Jan-2014 Intent Fast DO, Audrey A Fast DO, Audrey A Eprescribed prescriptions (G8553)By: On: 29-Dec-2013 Intent Sabina Damon DO CT - Abdomen & Pelvis Stone On: 29-Dec-2013 Intent ProtocolBy: Sabina Damon DO Pelvic and Breast, Medicare On: 24-Oct-2013 Intent (G0101)By: Kindra Vargas DXA, BONE DENSITY, AXIAL SKELETON On: 28-May-2013 Intent (98909)By: Fast DO, Audrey A Fast DO, Comments: sep Audrey A Eprescribed prescriptions (G8553)By: On: 28-May-2013 Intent Kindra Vargas MAMMOGRAM, SCREENING, BOTH BREASTS On: 22-Jan-2013 Intent (63532)By: Fast DO, Audrey A Fast DO, Comments: february Audrey A Eprescribed prescriptions (G8553)By: On: 22-Jan-2013 Intent Kindra Vargas Eprescribed prescriptions (G8553)By: On: 15-Oct-2012 Intent Kindra Vargas Rocephon Injection, 1 Gm ([id number])By: On: 09-Sep-2012 Intent Fast DO, Audrey A Fast DO, Audrey A Comments: [id number] 5.141 gram,plit into 2 injections of 2ml with lidocaine 1%R hip, IMMegan Eprescribed prescriptions (G8553)By: On: 09-Sep-2012 Intent Kindra Vargas EKG (58766)By: Fast DO, Audrey A On: 30-Aug-2012 Intent Fast DO, Audrey A Comments: ekg showed sinusbrady, normal axis, no acute st/t wave changes- lvh Holter Monitor 24 hrsBy: Fast DO, On: 30-Aug-2012 Intent Audrey A Fast DO, Audrey A Comments: 1 week Eprescribed prescriptions (G8553)By: On: 30-Aug-2012 Intent Kindra Vargas Renal DopplerBy: Fast DO, Audrey A On: 17-Jul-2012 Intent Fast DO, Audrey A Eprescribed prescriptions (G8553)By: On: 17-Jul-2012 Intent Kindra Vargas Eprescribed prescriptions (G8553)By: On: 28-Jun-2012 Intent Kindra Vargas MAMMOGRAM, SCREENING, BOTH BREASTS On: 12-Dec-2011 Intent (82648)By: Fast DO, Audrey A Fast DO, Comments: a A TDAP VACCINE >7 IM (42080)By: [place] On: 17-May-2011 Intent DO, Audrey A Fast DO, Audrey A Comments: Lot #:[id number] date:mount given:0.5mlRoute: IMSite given:left deltGiven by: ARABELLA Burgos EKG (92106)By: Kindra Vargas On: 17-May-2011 Intent Comments: ekg showed normal sinus rhythym, normal axis, no acute st/t wave changes poor r wave progerssion- lvh no change DXA, BONE DENSITY, AXIAL SKELETON On: 17-May-2011 Intent (55441)By: Fast DO, Audrey A Fast DO, Comments: aug Audrey A Breast Screening - BilateralBy: Fast On: 06-Sep-2010 Intent DO, Audrey A Fast DO, Audrey A Comments: bilateral mammo MAMMOGRAM, SCREENING, BOTH BREASTS On: 02-Sep-2010 Intent (08591)By: Fast DO, Audrey A Fast DO, Audrey A Solu -Medrol Injection, 125 mg On: 25-Apr-2010 Intent ([id number])By: Bc BERG, Shandra Denney Comments: 2ml given im rt hip 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 EKG (03100)By: Kindra Vargas On: 01-Feb-2010 Intent Comments: ekg- sinus edy lvh no acute change MAMMOGRAM, SCREENING, BOTH BREASTS On: 18-Aug-2009 Intent (43481)By: Fast DO, Audrey A Fast DO, Audrey A DXA, BONE DENSITY, AXIAL SKELETON On: 18-Aug-2009 Intent (95372)By: Fast DO, Audrey A Fast DO, Comments: oct Audrey A Bio Z (75886)By: Fast DO, Audrey A On: 12-May-2009 Intent Fast DO, Audrey A Comments: high svr on bioz normal cardiac output Renal Duplex ScanBy: Fast DO, Audrey On: 12-May-2009 Intent A Fast DO, Audrey A Bio Z ([id number])By: Fast DO, Audrey A On: 11-Jan-2009 Intent Fast DO, Audrey A Comments: good cardiac output and svr -- bpis good EKG (96203)By: Fast DO, Audrey A On: 11-Jan-2009 Intent Fast DO, Audrey A Comments: ekg showed normal sinus rhythym, normal axis, no acute st/t wave changes lvh RIGO (Ankle Brachial Index) On: 30-Sep-2008 Intent (57443)By: Floresita Parker LPN ADMINISTRATION OF INFLUENZA VIRUS On: 10-Jul-2008 Intent VACCINE (G0008)By: Saida Oreilly LPN FLU VAC, SPLIT, >3 YEARS, INTRAMUSC On: 10-Jul-2008 Intent (51982)By: Saida Oreilly LPN Comments: 0.5cc given im lt loyd H.Horn MAMMOGRAM, SCREENING, BOTH BREASTS On: 30-Jun-2008 Intent (00467)By: Fast DO, Audrey A Fast DO, Audrey A RIGO (Ankle Brachial Index) On: 30-Jun-2008 Intent (31426)By: Fast DO, Audrey A Fast DO, Comments: nov Audrey A Radiology - Knee - Left - Weight On: 19-May-2008 Intent BearingBy: Fast DO, Audrey A Fast DO, Audrey A Venous Doppler - BothBy: Fast DO, On: 22-Apr-2008 Intent Audrey A Fast DO, Audrey A Comments: lower ext Bio Z (62534)By: Fast DO, Audrey A On: 22-Apr-2008 Intent Fast DO, Audrey A Comments: parameters good EKG (43372)By: Fast DO, Audrey A On: 22-Apr-2008 Intent Fast DO, Audrey A Comments: ekg showed normal sinus rhythym, normal axis, no acute st/t wave changes poor r wave progression unchanged Echo CompleteBy: Fast DO, Audrey A On: 22-Apr-2008 Intent Fast DO, Audrey A RIGO (Ankle Brachial Index) On: 07-Aug-2007 Intent ([id number])By: Marium Liu RN RIGO (Ankle Brachial Index) On: 26-Jul-2007 Intent ([id number])By: Fast DO, Audrey A Fast DO, Audrey A DXA, BONE DENSITY, AXIAL SKELETON On: 26-Jul-2007 Intent ([id number])By: Fast DO, Audrey A Fast DO, Comments: in [place] A MAMMOGRAM, SCREENING, BOTH BREASTS On: 26-Jul-2007 Intent ([id number])By: Fast DO, Audrey A Fast DO, Audrey A Pulse Oximetry ([id number])By: Noe BETTENCOURT, On: 20-Nov-2006 Intent Marium Holter Moniter ([id number])By: Ly, On: 10-Sep-2006 Intent Sridevi Holter Moniter ([id number])By: [place] NIETO, On: 30-Jul-2006 Intent Audrey A Fast DO, Audrey A Planned Medications INJECTION, CEFTRIAXONE SODIUM, PER 250 MG Ordered: 09-Sep-2012 Pending Fast DO, Audrey A Fast DO, Audrey A Vitamin B-12 1000 MCG/ML Injection Solution Ordered: 01-Dec-2015 Pending Fast DO, Audrey A Fast DO, Audrey A Instructions Name Dates Details Hypertensive heart disease without congestive heart failure : How to access health information online Indication: Hypertensive heart disease without congestive heart failure Hypertensive heart disease without congestive heart failure : How to access health information online - Detail Indication: Hypertensive heart disease without congestive heart failure Hypertensive heart disease without congestive heart failure : Patient Instructions Indication: Hypertensive heart disease without congestive heart failure Gastroesophageal reflux disease without esophagitis : How to access health information online Indication: Gastroesophageal reflux disease without esophagitis Gastroesophageal reflux disease without esophagitis : How to access health information online - Detail Indication: Gastroesophageal reflux disease without esophagitis Gastroesophageal reflux disease without esophagitis : Patient Instructions Indication: Gastroesophageal reflux disease without esophagitis Impaired fasting glucose : How to access health information online Indication: Impaired fasting glucose Impaired fasting glucose : How to access health information online - Detail Indication: Impaired fasting glucose Impaired fasting glucose : Patient Instructions Indication: Impaired fasting glucose [facility] EXAM : How to access health information online Indication: [facility] EX[facility] EXAM : How to access health information online - Detail Indication: [facility] EXAM [facility] EXAM : Patient Instructions Indication: [facility] EXAM Hypertensive heart disease without congestive heart failure : How to access health information online Indication: Hypertensive heart disease without congestive heart failure Hypertensive heart disease without congestive heart failure : How to access health information online - Detail Indication: Hypertensive heart disease without congestive heart failure Hypertensive heart disease without congestive heart failure : Patient Instructions Indication: Hypertensive heart disease without congestive heart failure Pre-operative exam (Renamed from Encounter for pre-operative examination) : How to access health information online Indication: Pre-operative exam (Renamed from Encounter for pre-operative examination) Pre-operative exam (Renamed from Encounter for pre-operative examination) : How to access health information online - Detail Indication: Pre-operative exam (Renamed from Encounter for pre-operative examination) Pre-operative exam (Renamed from Encounter for pre-operative examination) : Patient Instructions Indication: Pre-operative exam (Renamed from Encounter for pre-operative examination) Impaired fasting glucose : How to access health information online Indication: Impaired fasting glucose Impaired fasting glucose : How to access health information online - Detail Indication: Impaired fasting glucose Impaired fasting glucose : Patient Instructions Indication: Impaired fasting glucose Impaired fasting glucose : How to access health information online Indication: Impaired fasting glucose Impaired fasting glucose : How to access health information online - Detail Indication: Impaired fasting glucose Impaired fasting glucose : Patient Instructions Indication: Impaired fasting glucose Impaired fasting glucose : How to access health information online Indication: Impaired fasting glucose Impaired fasting glucose : How to access health information online - Detail Indication: Impaired fasting glucose Impaired fasting glucose : Patient Instructions Indication: Impaired fasting glucose Herpes zoster without complication : How to access health information online Indication: Herpes zoster without complication Herpes zoster without complication : How to access health information online - Detail Indication: Herpes zoster without complication Herpes zoster without complication : Patient Instructions Indication: Herpes zoster without complication [facility] : How to access health information online Indication: [facility] Physical [facility] Physical : How to access health information online - Detail Indication: [facility] Physical [facility] Physical : Patient Instructions Indication: [facility] Physical Impaired fasting glucose : How to access health information online Indication: Impaired fasting glucose Impaired fasting glucose : How to access health information online - Detail Indication: Impaired fasting glucose Impaired fasting glucose : Patient Instructions Indication: Impaired fasting glucose Impaired fasting glucose : How to access health information online Indication: Impaired fasting glucose Impaired fasting glucose : How to access health information online - Detail Indication: Impaired fasting glucose Impaired fasting glucose : Patient Instructions Indication: Impaired fasting glucose Upper respiratory tract infection, unspecified type : How to access health information online Indication: Upper respiratory tract infection, unspecified type Upper respiratory tract infection, unspecified type : How to access health information online - Detail Indication: Upper respiratory tract infection, unspecified type Upper respiratory tract infection, unspecified type : Patient Instructions Indication: Upper respiratory tract infection, unspecified type Impaired fasting glucose : Patient Instructions Indication: Impaired fasting glucose Urinary frequency : Patient Instructions Indication: Urinary frequency Impaired fasting glucose : Patient Instructions Indication: Impaired fasting glucose Need for prophylactic vaccination and inoculation against influenza : Patient Instructions Indication: Need for prophylactic vaccination and inoculation against influenza Impaired fasting glucose : How to access health information online Indication: Impaired fasting glucose Impaired fasting glucose : How to access health information online - Detail Indication: Impaired fasting glucose screening : How to access health information online Indication: screening screening : How to access health information online - Detail Indication: screening Impaired fasting glucose : Patient Instructions Indication: Impaired fasting glucose Impaired fasting glucose : Patient Instructions Indication: Impaired fasting glucose Urinary frequency : Patient Instructions Indication: Urinary frequency Impaired fasting glucose : Patient Instructions Indication: Impaired fasting glucose Impaired fasting glucose : Patient Instructions Indication: Impaired fasting glucose Impaired fasting glucose : Patient Instructions Indication: Impaired fasting glucose Acute sinusitis, unspecified : Patient Instructions Indication: Acute sinusitis, unspecified Hypertensive heart disease without congestive heart failure : Patient Instructions Indication: Hypertensive heart disease without congestive heart failure Hypertensive heart disease without congestive heart failure : Patient Instructions Indication: Hypertensive heart disease without congestive heart failure Fatigue : Patient Instructions Indication: Fatigue Urinary tract infection, site not specified : Patient Instructions Indication: Urinary tract infection, site not specified Dysuria : Patient Instructions Indication: Dysuria Encounters Review On: 30-Sep-2018 8:55 Encounter Reason: Follow up tests - Date: (09/25 blood work)., [ADDITIONAL REASON] Follow up for chronic medical issues - The patient feels well with no complaints , has good energy level and is sleeping well. Patient has been compliant with instructions. Current medication use: no side effects and compliant with dosing regimen. Patient sleeps 7 hours per night. N utrition: balanced diet. The medical issues the patient is following up for include All identified problems below, blood sugar issues, cardiac issues and osteoarthritis. Note for Follow up for chronic medical issues: she is not checking bps at home feeling ok although little tired today- bp up a little took her pills just prior to coming she getting routine eye exams and has appt this week at retinal doc Encounter Diagnosis: Nonsmoker, BMI 30.0-30.9,adult, Hypertensive heart disease without congestive heart failure, Hypercholesterolemia, Vitamin B 12 deficiency, Vitamin D deficiency, Impaired fasting glucose (790.21), Gastroesophageal reflux disease without esophagitis, Osteoporosis, Bilateral carotid artery stenosis [facility] Office Visit On: 24-Jun-2018 8:50 Encounter Reason: Follow up tests - Date: (06/17 blood work)., [ADDITIONAL REASON] Follow up for chronic medical issues - The patient feels well with no complaints End: 24-Jun-2018 10:07 , has good energy level and is sleeping well. Patient has been compliant with instructions. Current medication use: no side effects and compliant with dosing regimen. Patient sleeps 7 hours per night. N utrition: balanced diet. The medical issues the patient is following up for include All identified problems below, blood sugar issues, cardiac issues and osteoarthritis. Note for Follow up for chronic medical issues: bp good energy good- she getting different shots now in eyes for crao- and carotid artery screening questions amount of plaque - chol improved - sugar good- no gerd and knee doing well Encounter Diagnosis: Nonsmoker, Need for prophylactic vaccination and inoculation against influenza (Renamed from Need for immunization against influenza), BMI 29.0-29.9,adult, Encounter for screening mammogram for breast cancer (Renamed from Encounter for screening mammogram f or malignant neoplasm of breast), Gastroesophageal reflux disease without esophagitis, Impaired fasting glucose (790.21), Bilateral carotid artery stenosis, Hypertensive heart disease without congestive heart failure, Vitamin D deficiency, Vitamin B 12 deficiency, Hypercholesterolemia [facility] Office Visit On: 13-Mar-2018 9:42 Encounter Reason: Follow up tests - Date: (03/04 blood work)., [ADDITIONAL REASON] Follow up for chronic medical issues - The patient feels well with no complaints End: 13-Mar-2018 10:48 , has good energy level and is sleeping well. Patient has been compliant with instructions. Current medication use: no side effects and compliant with dosing regimen. Patient sleeps 7 hours per night. N utrition: balanced diet. The medical issues the patient is following up for include All identified problems below, blood sugar issues, cardiac issues and osteoarthritis. Note for Follow up for chronic medical issues: still wh2vsjol shots in the eye- they have been adjusting meds- feels good otherwise and energy good- no gerd =- knee feels alot better Encounter Diagnosis: Nonsmoker, BMI 28.0-28.9,adult, Impaired fasting glucose (790.21), Bilateral carotid artery stenosis, Hypercholesterolemia, Vitamin B 12 deficiency, Hypertensive heart disease without congestive heart failure, Gastroesophageal reflux disease without esophagitis, Vitamin D deficiency, Chronic pain of left knee, Osteoporosis [facility] Phone Encounter On: 04-Feb-2018 10:41 Encounter Diagnosis: Hypercholesterolemia End: 04-Feb-2018 11:01 [facility] Office Visit On: 04-Dec-2017 8:43 Encounter Reason: Physical female exam - General health: feels well with no complaints, has good energy level and is sleeping well. The patient's appetite is normal. Nutrition: normal/adequate. Exercises 2 days per week. End: 20-Dec-2017 16:43 Sleeps on average 7 hours per night. Elimination problems include constipation. Safety measures include appropriate use of safety belts, appropriate use of helmets and home smoke detectors. There are n o current emotional problems. Note for Physical exam: [facility] Well[facility] Physical- she is going every 6 weeks to retinal specialist- they think related to her bp but her bp is good and has been good there - she getting avastatin// has macular degeneration and crvo- bp is good and no gerd and energy is variable depending on whats going onEncounter Diagnosis: Nonsmoker, BMI 28.0-28.9,adult, [facility]LL[facility] EXAM, Gastroesophageal reflux disease without esophagitis, Hypertensive heart disease without congestive heart failure, Vitamin D deficiency, Vitamin B 12 deficiency, Hypercholesterolemia, Osteoporosis, Postmenopausal (Renamed from Postmenopausal status), Chronic pain of left knee [facility] Office Visit On: 06-Aug-2017 10:07 Encounter Reason: Follow up for chronic medical issues - The patient feels well with no complaints, has good energy level and is sleeping well. Patient has been compliant with instructions. Current medication use: no eduarda End: 06-Aug-2017 13:57 e effects and compliant with dosing regimen. Patient sleeps 7 hours per night. Nutrition: balanced diet. The medical issues the patient is following up for include All identified problems below, blood s ugar issues, cardiac issues and osteoarthritis. 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 He put her on a full strength asa daily. She is doing well. She also had a partial left knee surgery and is doing well with that too.- happened after the surgery- her bp wasnt high- she was off her aspirin for the surgery and sh thinks this may have done it - n ow on full strength aspirin- reviewed chart had hypercoag workup- and echo and carotids- and she is feeling good and energy good- she had been monioring her bp she runnign 140/70- she hasnt taken for couple weeks and didnt take micardis this am, [ADDITIONAL REASON] Follow up, Laboratory Test Results - Date: (06/20/17). Encounter Diagnosis: Hypertensive heart disease without congestive heart failure, Nonsmoker, BMI 29.0-29.9,adult, Need for prophylactic vaccination and inoculation against influenza (Renamed from Need for immunization against influenza), Impaired fasting glucose (790.21), Bilateral carotid artery stenosis, Encounter for screening mammogram for breast cancer (Renamed from Encounter for screening mammogram for malignant neoplasm of breast), Gastroesophageal reflux disease without esophagitis, Vitamin B 12 deficiency, Hypercholesterolemia, Vitamin D deficiency, Central retinal vein occlusion, Left leg swelling [facility] Annotation/Addendum On: 06-Jun-2017 15:08 Encounter Diagnosis: History of colon polyps End: 06-Jun-2017 15:10 [facility] Office Visit On: 02-May-2017 9:40 Encounter Reason: Pre-Op Visit - The procedure scheduled is a partial Lknee replacement on undetermined. The surgeon for the procedure will be Dr. Singleton. Pertinent medical history includes prior anesthesia (tonsilecetom End: 02-May-2017 12:60 y at young age) and frequent aspirin use (81mg), while pertinent medical history does not include previous anesthesia reaction, clotting disorder, bleeding disorder or impaired immunity. Pertinent famil y history does not include clotting disorder or bleeding disorder. Pertinent social history includes aspirin use, nonsteroidal anti-inflammatory drug use (mobic) and wearing dentures or partial plates, while pertinent social history does not include tobacco use, alcohol use or concerns regarding care after surgery. After surgery the patient plans to recover at home with family. Note for Pre-op visit : no chest pain or sob and bp is good and sugar last was good at 5.6- no history of issues with anesthesia- no gerd no history of bleeding or clottingEncounter Diagnosis: Pre-operative exam (Renamed from Encounter for pre-operative examination), Nonsmoker, Hypertensive heart disease without congestive heart failure, Impaired fasting glucose (790.21), Gastroesophageal reflux disease without esophagitis, Osteoarthritis, Bilateral carotid artery stenosis, Obstructive sleep apnea, adult [facility] Office Visit On: 02-Apr-2017 11:24 Encounter Reason: Follow up tests - Date: (03/19 blood work)., [ADDITIONAL REASON] Follow up for chronic medical issues - The patient feels well with no complaints End: 03-Apr-2017 8:25 , has good energy level and is sleeping well. Patient has been compliant with instructions. Current medication use: no side effects and compliant with dosing regimen. Patient sleeps 7 hours per night. N utrition: balanced diet. The medical issues the patient is following up for include All identified problems below, blood sugar issues, cardiac issues and osteoarthritis. Note for Follow up for chronic medical issues: she not getting 140s on er bp at home she is monitoring typically in the 130s- - going to have partial knee replacemetn on left she thinks seeing [facility]- she tolerating her meds and chol not moving a whole lot though Encounter Diagnosis: Nonsmoker, Impaired fasting glucose (790.21), BMI 29.0-29.9,adult, Hypercholesterolemia, Vitamin B 12 deficiency, Vitamin D deficiency, Hypertensive heart disease without congestive heart failure, Bilateral carotid artery stenosis [facility] Office Visit On: 08-Dec-2016 10:23 Encounter Reason: Follow up for chronic medical issues - The patient feels well with no complaints, has good energy level and is sleeping well. Patient has been compliant with instructions. Current medication use: no eduarda End: 10-Dec-2016 17:06 e effects and compliant with dosing regimen. Patient sleeps 7 hours per night. Nutrition: balanced diet. The medical issues the patient is following up for include All identified problems below, blood s ugar issues, cardiac issues and osteoarthritis. Note for Follow up for chronic medical issues: francisco didnt take bp pill again this am needs to be consistent- her knee swelling better but still some melvin n - has to go back to [facility] inmay ??- her sugar way better has been exercising, [ADDITIONAL REASON] Follow up, Laboratory Test Results - Date: (11/2016). Encounter Diagnosis: Impaired fasting glucose (790.21), Nonsmoker, BMI 29.0-29.9,adult, Hypertensive heart disease without congestive heart failure, Vitamin B 12 deficiency, Chronic pain of left knee, Urinary frequency (Renamed from Urine frequency), Hypercholesterolemia, Vitamin D deficiency, Osteoporosis, Bilateral carotid artery stenosis [facility] Office Visit On: 06-Sep-2016 9:16 Encounter Reason: Follow up tests - Date: (08/28 blood work)., [ADDITIONAL REASON] Follow up for chronic medical issues - The patient feels well with minor complai End: 07-Sep-2016 20:31 nts (a lot of pain in knee. Had 3 shots of euflexxa), has good energy level and is sleeping well. Patient has been compliant with instructions. Current medication use: no side effects and compliant with dosing regimen. Patient sleeps 7 hours per night. Nutrition: balanced diet. The medical issues the patient is following up for include All identified problems below, blood sugar issues, cardiac issues and osteoarthritis. Note for Follow up for chronic medical issues: has had 3 euflexxa shots scond one hurt a lot and told them when went back- but they said would be ok- - leg actually less swollen th en was- cant bend the knee right now- not takingmobic didnt help much - sugar better but chol worse is taking pravastatin - tolerating but not much effectiveness Encounter Diagnosis: Impaired fasting glucose (790.21), Bilateral carotid artery stenosis, Hypercholesterolemia, Hypertensive heart disease without congestive heart failure, Chronic pain of left knee, Vitamin B 12 deficiency [facility] Office Visit On: 03-Aug-2016 11:34 Encounter Reason: Nurse procedure visit - The symptoms have been associated with other (flu).Encounter Diagnosis: Need for prophylactic vaccination and inoculation against influenza End: 03-Aug-2016 20:28 [facility] Office Visit On: 19-Jun-2016 14:05 Encounter Reason: Rash - Symptoms include rash, while symptoms do not include fever. The patient describes the rash as red, tender, burning and stinging. The rash is located on the right side of the back and on the right End: 19-Jun-2016 21:26 side of the abdomen. Onset was sudden day(s) ago. The rash is spreading. Note for Rash: Pt is unable to wear a bra also. is taking tylenol - is having signficant pain Encounter Diagnosis: Herpes zoster without complication [facility] Office Visit On: 14-Jun-2016 12:22 Encounter Diagnosis: Allergic reaction, initial encounter End: 14-Jun-2016 12:27 [facility] Office Visit On: 05-Jun-2016 13:33 Encounter Reason: Follow up tests - Diagnostic tests include other (labs). Date: (04/2016)., [ADDITIONAL REASON] Physical female exam - General health: feels well with no complaints, has good e End: 12-Jun-2016 12:19 nergy level and is sleeping well. The patient's appetite is normal. Nutrition: normal/adequate. Exercises 0 days per week. Sleeps on average 7 hours per night. Elimination problems include constipation. Safety measures include appropriate use of safety belts and home smoke detectors. There are no current emotional problems. Note for Physical exam: [facility] Physical Encounter Diagnosis: [facility] Physical, BMI 29.0- 29.9,adult, Nonsmoker , Osteoporosis, Encounter for screening mammogram for breast cancer (Renamed from Encounter for screening mammogram for malignant neoplasm of breast), Bilateral carotid artery stenosis, Hypercholesterolemia, Vitamin B 12 deficiency, Impaired fasting glucose (790.21) [facility] Office Visit On: 21-Apr-2016 11:02 Encounter Diagnosis: Obstructive sleep apnea, adult End: 21-Apr-2016 11:02 [facility] Office Visit On: 05-Apr-2016 8:35 Encounter Reason: Follow up for chronic medical issues - The patient feels well with no complaints, has good energy level and is sleeping well. Patient has been compliant with instructions. Current medication use: no eduarda End: 05-Apr-2016 10:22 e effects and compliant with dosing regimen. Patient sleeps 7 hours per night. Nutrition: balanced diet. The medical issues the patient is following up for include All identified problems below. Note fo r Follow up for chronic medical issues: overall feeling ok and trying to be active sugars good and tolerating crestor, [ADDITIONAL REASON] Follow up, Laboratory Test Results - Date: (02/24/16). Encounter Diagnosis: Impaired fasting glucose (790.21) , BMI 29.0-29.9,adult, Nonsmoker, Osteoporosis, Hypertensive heart disease without congestive heart failure, Vitamin B 12 deficiency, Vitamin D deficiency, Bilateral carotid artery stenosis, Hypercholesterolemia, Gastroesophageal reflux disease without esophagitis, Chronic pain of left knee [facility] Office Visit On: 01-Dec-2015 10:36 Encounter Reason: Nurse procedure visit - Reason for visit: other (B12).Encounter Diagnosis: Vitamin B 12 deficiency End: 01-Dec-2015 13:28 [facility] Phone Encounter On: 30-Nov-2015 12:47 Encounter Diagnosis: Vitamin B 12 deficiency End: 30-Nov-2015 12:51 [facility] Office Visit On: 12-Nov-2015 9:21 Encounter Reason: Follow up for chronic medical issues - The patient feels well with no complaints, has good energy level and is sleeping well. Patient has been compliant with instructions. Current medication use: no eduarda End: 14-Nov-2015 16:44 e effects and compliant with dosing regimen. Patient sleeps 7 hours per night. Nutrition: balanced diet. The medical issues the patient is following up for include All identified problems below. Note fo r Follow up for chronic medical issues: bp up no sx- took meds- nothing new sx everett - no routien gerd tolerating meds - we talkeda bout her level of cardio exx which is low and diet , [ADDITIONAL REASON] Follow up, Laboratory Test Results - Date: (10/04/15). , [ADDITIONAL REASON] Annual Medicare Exam - The patient had reviewed and updated the family history, medication/s, past medical history and social history. Yes the patient did have (in sep- see scanned document) a mini mental status exam done today. The activities of daily living the patient needs help with are none. The patient has driven in past 6 months, fallen in the past 6 months (fell over her sweeper in the kitchen) and put area rugs through house, but the patient has not had fecal incontinenc e, had urinary incontinence, missed or ran out of medications to soon, gotten lost, has a medalert necklace or bracelet or put handrails in bathroom. The patient has completed the following preventative measures: mammography (2014) and colonoscopy (2014- repeat in 5 years). The patient does have durable power of blister rust eradicator and living will. The patient has noticed nothing from the geriatic depression sca le. Other providers contributing to the patient's care are urologist (Dr. Lilly) and other: (ENT- Dr. lees). Encounter Diagnosis: Impaired fasting glucose (790.21), Osteoporosis, Annual Medicare Phyiscal WITHOUT abnormal findings (Renamed from Encounter for general adult medical examination without abnormal findings), Hypertensive heart disease without congestive heart failure, Vitamin D deficiency, Bilateral carotid artery stenosis, Hypercholesterolemia, Gastroesophageal reflux disease without esophagitis, Fatigue (780.79) [facility] Office Visit On: 20-Oct-2015 10:07 Encounter Reason: Nasal Congestion - The onset of the nasal congestion has been gradual and has been occurring in a persistent pattern for 2 months. The course has been constant. The nasal congestion is described as mode End: 21-Oct-2015 22:19 rate. The congestion is located in both sides. The nasal discharge is described as yellowish. There has been associated cough, while there has been no dizziness, ear pain, facial pain, fever, headache, nausea or vomiting. Note for Nasal congestion: using nasal spray- she getting bloody nasal draiange- no fever, [ADDITIONAL REASON] Warts, Unspecified - The lesions are located on the right hand (index finger). O nset was gradual 3 month(s) ago. The patient describes this as mild and unchanged. Associated symptoms include irritation (painful), while associated symptoms do not include itching or bleeding. Current treatment includes cryosurgery (otc). Encounter Diagnosis: Upper respiratory tract infection, unspecified type, Other viral warts [facility] Office Visit On: 14-Jul-2015 9:37 Encounter Reason: Follow up for chronic medical issues - The patient feels well with no complaints, has good energy level and is sleeping well. Patient has been compliant with instructions. Current medication use: no eduarda End: 15-Jul-2015 23:11 e effects and compliant with dosing regimen. Patient sleeps 7 hours per night. Nutrition: balanced diet. The medical issues the patient is following up for include All identified problems below. Note fo r Follow up for chronic medical issues: -her sugar up significantly she- may not be exercising as much sugar -- but cereal ??for breakfast and eating fast food - so we discussed , [ADDITIONAL REASON] Follow up, Laboratory Test Results - Date: (03/22/15). Encounter Diagnosis: Impaired fasting glucose (790.21), Osteoarthritis (715.96), Hypertensive heart dx. (402.90), Need for prophylactic vaccination and inoculation against influenza (Renamed from Need for immunization against influenza), Hypercholesterolemia, GERD (gastroesophageal reflux disease), Carotid stenosis, Vitamin D deficiency, SCREENING MAMMOGRAM NEC (V76.12) [facility] Office Visit On: 12-May-2015 8:48 Encounter Diagnosis: Urinary frequency (788.41) End: 12-May-2015 9:28 [facility] Phone Encounter On: 29-Mar-2015 18:35 Encounter Diagnosis: Urinary tract infection, site not specified (599.0) End: 29-Mar-2015 18:38 [facility] Phone Encounter On: 22-Mar-2015 10:39 Encounter Diagnosis: Urinary frequency (788.41) End: 22-Mar-2015 10:41 [facility] Office Visit On: 05-Mar-2015 9:38 Encounter Reason: Follow up for chronic medical issues - The patient feels well with no complaints, has good energy level and is sleeping well. Patient has been compliant with instructions. Current medication use: no eduarda End: 07-Mar-2015 21:09 e effects and compliant with dosing regimen. Patient sleeps 7 hours per night. Nutrition: balanced diet. Note for Follow up for chronic medical issues: she is feeling better fatigue better and bp is g ood- had colosnocopy and had polyp repeat 5 years- has urinary sx- has tolerted half crestorEncounter Diagnosis: Urinary frequency (788.41), VITAMIN D DEFICIENCY, NOS (268.9), Hypercholesterolemia (272.0), Impaired fasting glucose (790.21), GERD (530.81), Carotid Stenosis (433.10), Osteoporosis (733.00), Hypertensive heart dx. (402.90) [facility] Office Visit On: 28-Oct-2014 9:43 Encounter Reason: Follow up for chronic medical issues - The patient feels well with no complaints, has good energy level and is sleeping well. Patient has been compliant with instructions. Current medication use: no eduarda End: 28-Oct-2014 10:26 e effects, compliant with dosing regimen and considered effective by patient. Patient sleeps 7 hours per night. Nutrition: balanced diet, supplemental vitamins and low salt diet. The medical issues the patient is following up for include All identified problems below, cardiac issues (cardiac dysrhythmia), gastric reflux, high blood pressure, high cholesterol, osteoarthritis, osteoporosis/osteopenia, o ther (ddd, fatigue, vitamin d deficient) and peripheral vascular disease. Note for Follow up for chronic medical issues: no change in vision no headache - and all workup for secondary causes of retina l aretery occlusion were neg- no gerd and bp up didnt take meds-this aqm warned no t to do this - rebound htn stroke- and myalgia from crestor at bedtime so hold, [ADDITIONAL REASON] Follow up, Laboratory Test Results - Date: (07/08/14). Encounter Diagnosis: Impaired fasting glucose (790.21), Hypercholesterolemia (272.0), GERD (530.81), Carotid Stenosis (433.10), Branch retinal artery occlusion of right eye, VITAMIN D DEFICIENCY, NOS (268.9), Colon Polyps, History of (V12.72) [facility] Office Visit On: 08-Jul-2014 9:24 Encounter Reason: Follow up tests - Diagnostic tests include other (carotid doppler and labs). Date: (07/06/14). Current symptoms include other (a lot of fatigue ). Note for Discuss procedure results: had branch retina End: 08-Jul-2014 22:58 l artery occlusion - right eye and had carotids done- we reviewed today and taking baby asprin daily- has more energy since off beta riki and bp acceptable and pulse higher and sleeping better- still some fatigue but betterEncounter Diagnosis: NEED FOR PROPHYLACTIC VACCINATION AND INOCULATION AGAINST INFLUENZA (V04.81), Carotid Stenosis (433.10), Branch retinal artery occlusion of right eye, OTHER SPECIFIED CARDIAC DYSRHYTHMIAS, OTHER (427.89) [facility] Office Visit On: 24-Jun-2014 9:44 Encounter Reason: Follow up for chronic medical issues - The patient feels well with minor complaints (wonders if has mono again cause really tired and wants to sleep all the time), has decreased energy level and is slee End: 24-Jun-2014 22:46 ping well. Patient has been compliant with instructions. Current medication use: no side effects, compliant with dosing regimen and considered effective by patient. Patient sleeps 7 hours per night. Nut rition: balanced diet, supplemental vitamins and low salt diet. The medical issues the patient is following up for include All identified problems below, cardiac issues (cardiac dysrhythmia), gastric re flux, high blood pressure, high cholesterol, osteoarthritis, osteoporosis/osteopenia, other (ddd, fatigue, vitamin d deficient) and peripheral vascular disease. Note for Follow up for chronic medical i ssues: more fatigue and worried aboutmono again - bp is good and weight down 5 pounds- had eye issue and saw Fenzyl- has carotid dopplers set up- had hemianopsia right eye- and apparently some more testing- she still only seeing Half- not as bad, [ADDITIONAL REASON] Follow up, Laboratory Test Results - Date: (05/21/14). Encounter Diagnosis: Impaired fasting glucose (790.21), Hypertensive heart dx. (402.90), screening, Fatigue (780.79), GERD (530.81), Hypercholesterolemia (272.0), VITAMIN D DEFICIENCY, NOS (268.9), OTHER SPECIFIED CARDIAC DYSRHYTHMIAS, OTHER (427.89) [facility] Office Visit On: 28-Jan-2014 10:40 Encounter Reason: Follow up for chronic medical issues - The patient feels well with no complaints, has good energy level and is sleeping well. Patient has been compliant with instructions. Current medication use: no eduarda End: 28-Jan-2014 13:04 e effects, compliant with dosing regimen and considered effective by patient. Patient sleeps 7 hours per night. Nutrition: balanced diet, supplemental vitamins and low salt diet. The medical issues the patient is following up for include All identified problems below, cardiac issues (cardiac dysrhythmia), gastric reflux, high blood pressure, high cholesterol, osteoarthritis, osteoporosis/osteopenia, o ther (ddd, fatigue, vitamin d deficient) and peripheral vascular disease. Note for Follow up for chronic medical issues: sugar better and bp is good no urinary sx and chol good-except hdl low- - so she is exercising more routinelynow , [ADDITIONAL REASON] Follow up tests - Date: (). Encounter Diagnosis: Impaired fasting glucose (790.21), ACUTE CYSTITIS, Hypertensive heart dx. (402.90), Hypercholesterolemia (272.0), GERD (530.81) [facility] Office Visit On: 29-Dec-2013 10:01 Encounter Reason: Follow up acute care visit - The patient feeling better since last seen. Patient has been compliant with instructions. Current medication use: no side effects and compliant with dosing regimen. The medi End: 29-Dec-2013 10:38 alexander issues the patient is following up for include UTI.Encounter Diagnosis: Urinary frequency (788.41), Hematuria (Renamed from Blood in the urine), ACUTE CYSTITIS [facility] Office Visit On: 22-Dec-2013 10:32 Encounter Reason: Nurse procedure visit - Reason for visit: other (recheck urine).Encounter Diagnosis: Urinary frequency (788.41), Hematuria (599.70), Abnormal Urine (791.9) End: 22-Dec-2013 12:50 [facility] Phone Encounter On: 19-Nov-2013 15:43 Encounter Diagnosis: Abnormal blood chemistry (790.6) End: 19-Nov-2013 15:45 [facility] Office Visit On: 19-Nov-2013 12:00 Encounter Diagnosis: Urinary frequency (788.41) End: 19-Nov-2013 23:14 [facility] Phone Encounter On: 18-Nov-2013 16:24 Encounter Diagnosis: Urinary tract infection, site not specified (599.0) End: 18-Nov-2013 16:28 [facility] Phone Encounter On: 27-Oct-2013 9:07 Encounter Diagnosis: Unspecified Diagnosis End: 03-Nov-2013 14:42 [facility] Office Visit On: 24-Oct-2013 11:41 Encounter Reason: Follow up for chronic medical issues - The patient feels well with no complaints, has good energy level and is sleeping well. Patient has been compliant with instructions. Current medication use: no eduarda End: 24-Oct-2013 14:32 e effects, compliant with dosing regimen and considered effective by patient. Patient sleeps 7 hours per night. Nutrition: balanced diet, supplemental vitamins and low salt diet. The medical issues the patient is following up for include All identified problems below, cardiac issues (cardiac dysrhythmia), gastric reflux, high blood pressure, high cholesterol, osteoarthritis, osteoporosis/osteopenia, o ther (ddd, fatigue, vitamin d deficient) and peripheral vascular disease. Note for Follow up for chronic medical issues: had eye doc appt in last year bp is good sugar went up discussed feeling ok tho ugh - no gerd- failed reclast has taken for 2-3 years adn doing calcium and vit d- and active maybe not as much as was though - has had nighttime urinary freq , [ADDITIONAL REASON] Follow up, Laboratory Test Results - Date: (10/23/13). , [ADDITIONAL REASON] Annual Medicare Exam - The patient had reviewed and updated the family history, medication/s, past medical history and social history. Yes the patient did have a mini mental status exam done today. The activities of daily living the patient needs help with are none. The patient has driven in past 6 months and put area rugs through house, but the patient has not had fecal incontine nce, had urinary incontinence, missed or ran out of medications to soon, fallen in the past 6 months, gotten lost, has a medalert necklace or bracelet or put handrails in bathroom. The patient has compl eted the following preventative measures: mammography and colonoscopy. The patient does have durable power of blister rust eradicator and living will. The patient has noticed nothing from the geriatic depression scale . Other providers contributing to the patient's care are other: (ENT). , [ADDITIONAL REASON] Well Women Exam - The patient feels well with no complaints, has good energy lev el and is sleeping well. Pap smear: date of last pap: (long time ago). Contraceptive history: The patient is not using any method of contraception at this time. Patient does not exercise. The patient's libido is absent. The patient reports that she performs monthly self breast exam. Calcium intake includes 2 serving(s) milk daily. The patient denies the use of oral contraceptives or hormone replacemen t therapy. Menstruation: Last menstrual period date: (post-anita). Note for Well Women Exam: no vaginal bleeding and doing breast exam - no lumps - and not due for colonsocopy - mammo and bone density up to date and reviewed - had flu vaccine this year Encounter Diagnosis: Impaired fasting glucose (790.21), Hypertensive heart dx. (402.90), Well Woman Exam , Medicare (V76.2) (Renamed from Well Woman Exam , Medicare (V76.2, V72.31)), Osteoporosis (733.00), VITAMIN D DEFICIENCY, NOS (268.9), GERD (530.81), Hypercholesterolemia (272.0), Urinary frequency (788.41), Annual Medicare Physical (V70.0) [facility] Office Visit On: 28-May-2013 10:39 Encounter Reason: Follow up for chronic medical issues - The patient feels well with no complaints, has good energy level and is sleeping well. Patient has been compliant with instructions. Current medication use: no eduarda End: 28-May-2013 11:20 e effects, compliant with dosing regimen and considered effective by patient. Patient sleeps 7 hours per night. Nutrition: balanced diet, supplemental vitamins and low salt diet. The medical issues the patient is following up for include All identified problems below, cardiac issues (cardiac dysrhythmia), gastric reflux, high blood pressure, high cholesterol, osteoarthritis, osteoporosis/osteopenia, o ther (ddd, fatigue, vitamin d deficient) and peripheral vascular disease., [ADDITIONAL REASON] Follow up, Laboratory Test Results - Date: (05/19/13). Encounter Diagnosis: Impaired fasting glucose (790.21), Hypertensive heart dx. (402.90), VITAMIN D DEFICIENCY, NOS (268.9), GERD (530.81), Hypercholesterolemia (272.0), Osteoporosis (733.00) [facility] Office Visit On: 22-Jan-2013 11:34 Encounter Reason: Follow up for chronic medical issues - The patient feels well with minor complaints (still a lot of fatigue- hopes the mono isnt back?), has decreased energy level and is sleeping well. Patient has been End: 22-Jan-2013 12:22 compliant with instructions. Current medication use: no side effects, compliant with dosing regimen and considered effective by patient. Patient sleeps 7 hours per night. Nutrition: balanced diet, supp lemental vitamins and low salt diet. The medical issues the patient is following up for include All identified problems below, cardiac issues (cardiac dysrhythmia), gastric reflux, high blood pressure, high cholesterol, osteoarthritis, osteoporosis/osteopenia, other (ddd, fatigue, vitamin d deficient) and peripheral vascular disease. Note for Follow up for chronic medical issues: weight down 10 poun ds becuase more active- bp is good- and feels sleepy still - sleeping 8-9 hours of sleep and wakes up rested but gets sleepy after gets kids on bus- sugar and chol up becuase was eating out alot for a while- no gerd , [ADDITIONAL REASON] Follow up, Laboratory Test Results - Date: (01/14/13). Encounter Diagnosis: Impaired fasting glucose (790.21), Fatigue (780.79), Hypertensive heart dx. (402.90), VITAMIN D DEFICIENCY, NOS (268.9), Hypercholesterolemia (272.0), GERD (530.81), screening, Osteoporosis (733.00) [facility] Office Visit On: 14-Nov-2012 10:36 Encounter Reason: Sinusitis - The last clinic visit was 1 week(s) ago. No changes in management were made at the last visit. Symptoms include nasal congestion, clear rhinorrhea, cheek pressure, upper tooth pain, forehead End: 14-Nov-2012 11:11 pain, cough, ear fullness, ear pain and headache. Onset was sudden. The symptoms occur constantly. The patient describes this as moderate in severity and worsening. Associated symptoms include sore thr oat, while associated symptoms do not include chills, fever or diplopia.Encounter Diagnosis: Acute sinusitis, unspecified (461.9), Cold sore (054.9) [facility] Office Visit On: 15-Oct-2012 11:31 Encounter Reason: Follow up Meds - The patient feels well with no complaints, has good energy level and is sleeping well. Patient has been compliant with instructions. Current medication use: no side effects and complian End: 15-Oct-2012 11:54 t with dosing regimen. Patient sleeps 7 hours per night. Nutrition: balanced diet and no supplemental vitamins & iron. Note for Follow up Meds: F/u on starting Micardis for HTN. Pt states she is t olerating it well and brought a bp list. no uti sx and feeling good- she went off metoprolol thinking she was supposed to so will go back on 25- no side effects on meds- her bps are improving now down low 130-140- and feels better than has in months , [ADDITIONAL REASON] Follow up, Laboratory Test Results - Date: (10/02/12). Encounter Diagnosis: Hypertensive heart dx. (402.90), VITAMIN D DEFICIENCY, NOS (268.9), Hypercholesterolemia (272.0) [facility] Office Visit On: 02-Oct-2012 9:29 Encounter Reason: Nurse procedure visit - Reason for visit: other (re check urine).Encounter Diagnosis: Hematuria (599.70) End: 02-Oct-2012 10:28 [facility] Office Visit On: 09-Sep-2012 10:19 Encounter Reason: Follow up Hypertension - The patient has experienced follow up hypertension for weeks. The symptoms have been associated with family history of hypertension, while the symptoms have not been associated End: 09-Sep-2012 11:20 with anxiety, excessive caffeine intake, obesity, use of nasal decongestants, use of oral contraceptives or use of steroids. blood pressure range : (see pt list- 141/65, 154/69, 148/68, 143/71, 152/69, 158/79, 153/80 and 168/87). Note for Follow up Hypertension: she isnt taking mobic routinely- she isnt walking routinely but going to try, [ADDITIONAL REASON] Follow up, Diagnostic Procedure Results - Diagnostic tests include other (holter monitor and urine culture). Date: (09/04/12). Note for Discuss procedure results: pulse better- bps are high at home- 140-150 she was less fatigued last week but was up last night with urinary freq and urgency - no fever Encounter Diagnosis: Hypertensive heart dx. (402.90), Urinary tract infection, site not specified (599.0) [facility] Office Visit On: 06-Sep-2012 14:42 Encounter Reason: Urinary problems - The onset of the urinary problems has been variable (no sx just a recheck).Encounter Diagnosis: Hematuria (599.70) End: 08-Sep-2012 22:17 [facility] Office Visit On: 30-Aug-2012 11:11 Encounter Reason: Follow up tests - Diagnostic tests include ultrasound (renal vascular- in scanned documents). Date: (07/17/12). Follow up visit with no current symptoms. 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 Patient has been compliant with inst End: 17-Jul-2012 10:30 ructions. Current medication use: no side effects, compliant with dosing regimen and considered effective by patient. Patient sleeps 7 hours per night. Nutrition: balanced diet, supplemental vitamins an d low salt diet. The medical issues the patient is following up for include All identified problems below, cardiac issues (cardiac dysrhythmia), gastric reflux, high blood pressure, high cholesterol, os teoarthritis, osteoporosis/osteopenia, other (ddd, fatigue, vitamin d deficient) and peripheral vascular disease. Note for Follow up for chronic medical issues: her uti sx are gone - hasnt taken mobic this week - doesnt take routinely , [ADDITIONAL REASON] Follow up, Laboratory Test Results - Date: (06/28/12). 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 The course has been constant. The dysuria is described as moderate. The quality of the pain i End: 30-Jun-2012 20:31 s described as a burning sensation The dysuria is described as being located in the vaginal area. The dysuria does not radiate. The symptoms have been associated with frequency, incontinence, past histo ry of urinary tract infections and urgency, while the symptoms have not been associated with chills, fever or vaginal discharge. Note for Dysuria: - she hasnt had fever or flank pain but alot of dysur ia- she hasd some incontinence - she is doing some caffeine and trying to cut back Encounter Diagnosis: Dysuria (788.1), Fatigue (780.79), Impaired fasting glucose (790.21) [facility] Office Visit On: 12-Dec-2011 10:01 Encounter Reason: Follow up for chronic medical issues - The patient feels well with no complaints, has good energy level and is sleeping well. Patient has been compliant with instructions. Current medication use: no eduarda End: 12-Dec-2011 10:49 e effects, non-compliant with dosing regimen (hasn't been taking the hctz because says that she hasnt had swelling in her feet) and considered effective by patient. Patient sleeps 7 hours per night. Imp act of disease: emotional impact-mild. Nutrition: balanced diet, supplemental vitamins and low salt diet. The medical issues the patient is following up for include All identified problems below, cardia c issues (cardiac dysrhythmia), gastric reflux, high blood pressure, high cholesterol, osteoarthritis, osteoporosis/osteopenia, other (ddd, fatigue, vitamin d deficient) and peripheral vascular disease. Note for Follow up for chronic medical issues: she saw nabeel and ended up having tubes in ears because fluid and couldnt hear- hearing better now and feeling betteris taking boniva every month and stillnot improving- no gerd , [ADDITIONAL REASON] Follow up tests - Diagnostic tests include other (labs- cmp, flp, vit d). Date: (11/15/11). Encounter Diagnosis: Hypercholesterolemia (272.0), Hypertensive heart dx. (402.90), Carpel tunnel syndrome (354.0), Osteoporosis (733.00), GERD (530.81), screening [facility] Office Visit On: 08-Aug-2011 8:45 Encounter Reason: Sinusitis/ - The duration of the symptoms are 4 weeks The course has been increasing. The sinusitis/ has no relieving factors. Associated features include The symptoms have been associated with cough, e End: 08-Aug-2011 9:16 ar pain (bilatteral) and nasal discharge/stuffy nose, while the symptoms have not been associated with sinus pain, sore throat, swollen lymph glands or teeth pain.Encounter Diagnosis: Hearing loss, unspecified (389.9), Eustachian tube dysfunction (381.81), Cerumen impaction (380.4), Acute sinusitis, unspecified (461.9) [facility] Office Visit On: 17-May-2011 9:06 Encounter Reason: Follow up for chronic medical issues - The patient feels well with no complaints, has good energy level and is sleeping well. Patient has been compliant with instructions. Current medication use: no eduarda End: 17-May-2011 10:19 e effects and compliant with dosing regimen. Patient sleeps 7 hours per night. Nutrition: balanced diet, supplemental vitamins and low salt diet. The medical issues the patient is following up for inclu de All identified problems below, cardiac issues (cardiac dysrhythmia), gastric reflux, high blood pressure, high cholesterol, osteoarthritis, osteoporosis/osteopenia, other (ddd, fatigue, vitamin d def icient) and peripheral vascular disease. Note for Follow up for chronic medical issues: she was only taking 5000 5 days aweek and 90850 twice a week- - take 45841 4 x a week- she was out of one bp med last week but weight coming down and tryign - blood sugar ok- no gerd or dysphagia, [ADDITIONAL REASON] Follow up, Laboratory Test Results - Date: (05/05/11). Encounter Diagnosis: Osteoporosis (733.00), Hypertensive heart dx. (402.90), Hypercholesterolemia (272.0), Degenerative Disc Disease - Lumbar (722.52), VITAMIN D DEFICIENCY, NOS (268.9) [facility] Office Visit On: 02-Mar-2011 8:36 Encounter Reason: Sinusitis/ - The duration of the symptoms are 5 days The course has been gradually worsening. The sinusitis/ has no relieving factors. Associated features include The symptoms have been associated with End: 02-Mar-2011 9:03 cough, ear pain, nasal discharge/stuffy nose, sinus pain and swollen lymph glands. No previous evaluations were reported.Encounter Diagnosis: Acute sinusitis, unspecified (461.9) [facility] Office Visit On: 30-Nov-2010 10:02 Encounter Reason: Follow up for chronic medical issues - The patient feels well with no complaints, has good energy level and is sleeping well. Patient has been compliant with instructions. Current medication use: no eduarda End: 30-Nov-2010 10:39 e effects and compliant with dosing regimen. Patient sleeps 7 hours per night. Nutrition: balanced diet, supplemental vitamins and low salt diet. The medical issues the patient is following up for inclu de All identified problems below, cardiac issues (cardiac dysrhythmia), gastric reflux, high blood pressure, high cholesterol, osteoarthritis, osteoporosis/osteopenia, other (ddd, fatigue, vitamin d def icient) and peripheral vascular disease. Note for Follow up for chronic medical issues: weight down 2 pounds and bp is good- - no gerd - hasnt done mammo- but will- edema is better- and got rid of utiEncounter Diagnosis: Hypertensive heart dx. (402.90), VITAMIN D DEFICIENCY, NOS (268.9), Hypercholesterolemia (272.0), HYPERGLYCEMIA, NOS (790.6), Osteoporosis (733.00) [facility] Office Visit On: 11-Oct-2010 10:50 Encounter Reason: Dysuria - The onset of the dysuria has been sudden and has been occurring in a persistent pattern for 1 day. The course has been increasing. The dysuria is described as moderate. The quality of the pain End: 11-Oct-2010 11:25 is described as a burning sensation The dysuria is described as being located in the vaginal area. The dysuria does not radiate. The symptoms have been associated with frequency, nocturia, past history of urinary tract infections, urgency and excessive caffeine intake (4 cups coffee and tea daily), while the symptoms have not been associated with chills, fever, incontinence or vaginal discharge. Note for Dysuria: doesnt drink much except coffee- during day- no feveerEncounter Diagnosis: Dysuria (788.1) [facility] Annotation/Addendum On: 14-Sep-2010 9:29 Encounter Reason: Nurse procedure visit - The symptoms have been associated with other. Reason for visit: other (ua).Encounter Diagnosis: Family history of diabetes mellitus (V18.0) End: 14-Sep-2010 9:44 [facility] Office Visit On: 06-Sep-2010 9:32 Encounter Diagnosis: SCREENING MAMMOGRAM NEC (V76.12) End: 06-Sep-2010 9:34 [facility] Office Visit On: 02-Sep-2010 10:04 Encounter Reason: Follow up for chronic medical issues - The patient feels well with no complaints, has good energy level and is sleeping well. Patient has been compliant with instructions. Current medication use: no eduarda End: 02-Sep-2010 10:49 e effects and compliant with dosing regimen. Patient sleeps 7 hours per night. Nutrition: balanced diet, supplemental vitamins and low salt diet. The medical issues the patient is following up for inclu de All identified problems below, cardiac issues (cardiac dysrhythmia), gastric reflux, high blood pressure, high cholesterol, osteoarthritis, osteoporosis/osteopenia, other (ddd, fatigue, vitamin d def icient) and peripheral vascular disease. Note for Follow up for chronic medical issues: no ge4rd or dysphagia - with boniva- she is gaining weight and bp is up- she admits to drinking alot of coffee- that she wasnt doing before- - not more sob- no orthopnea has been standing alot the last few mos- hours at a time making candy-thinks may be related, [ADDITIONAL REASON] Follow up, Laboratory Test Results - Date: (06/17/10). Encounter Diagnosis: Hypercholesterolemia (272.0), Hypertensive heart dx. (402.90), GERD (530.81), VITAMIN D DEFICIENCY, NOS (268.9), Osteoporosis (733.00), Swelling of limb (729.81), screening [facility] Office Visit On: 03-May-2010 11:57 Encounter Reason: Follow up for chronic medical issues - The patient feels well with no complaints ,has good energy level and is sleeping well. Patient has been compliant with instructions. Current medication use: no eduarda End: 03-May-2010 12:36 e effects and compliant with dosing regimen. Patient sleeps 7 hours per night. Nutrition: balanced diet ,supplemental vitamins and low salt diet. The medical issues the patient is following up for inclu de All identified problems below ,cardiac issues (cardiac dysrhythmia) ,gastric reflux ,high blood pressure ,high cholesterol ,osteoarthritis ,osteoporosis/osteopenia ,other (ddd, fatigue, vitamin d def icient) and peripheral vascular disease. Note for Follow up for chronic medical issues: she tried lower dose of metroplol and actually felt worse so went back to full dose and feels fine and bp is goo d only using mobic prn and helps aches and pains- she isnt having gerd if takes medsEncounter Diagnosis: Osteoporosis (733.00), GERD (530.81), VITAMIN D DEFICIENCY, NOS (268.9), Hypertensive heart dx. (402.90), Hypercholesterolemia (272.0), HYPERGLYCEMIA, NOS (790.6) [facility] Office Visit On: 25-Apr-2010 7:57 Encounter Reason: Rash - The onset of the rash has been sudden and has been occurring in a persistent pattern for 1 days. The course has been constant. The rash is characterized as red and raised above the skin. The rash End: 25-Apr-2010 8:09 was first seen on the entire body. It spread to the entire body. There has been associated itching. Encounter Diagnosis: Contact dermatitis and other eczema due to plants (except food) (692.6) [facility] Office Visit On: 01-Feb-2010 10:40 Encounter Reason: Follow up, Laboratory Test Results - Date: (01/27/10). Note for Follow up, Laboratory Test Results: her bp has been good at home no diastolic 80s- the diuretic has helped she is feeling well and she saw End: 01-Feb-2010 11:32 Jabour and no polyps recheck 5 years- had cta had plaque but not significant-- no gerd, [ADDITIONAL REASON] Follow up for chronic medical issues - The patient feels well with no complaints ,has good energy level and is sleeping well. Patient has been compliant with instructions. Current medication use: no side effects and compliant with dosing regimen. Patient sleeps 7 hours per night. N utrition: balanced diet ,supplemental vitamins and low salt diet. The medical issues the patient is following up for include All identified problems below ,cardiac issues (cardiac dysrhythmia) ,gastric reflux ,high blood pressure ,high cholesterol ,osteoarthritis ,osteoporosis/osteopenia ,other (ddd, fatigue, vitamin d deficient) and peripheral vascular disease. Note for Follow up for chronic medical issues: feeling well and got rid of yeast- weight down 4 pounds more active- she doesnt check bp at home Encounter Diagnosis: Osteoarthritis (715.96), Hypertensive heart dx. (402.90), VITAMIN D DEFICIENCY, NOS (268.9), HYPERGLYCEMIA, NOS (790.6), Osteoporosis (733.00), GERD (530.81), Fatigue (780.79) [facility] Historical Summary On: 04-Nov-2009 9:31 [facility] End: 04-Nov-2009 9:32 Office Visit On: 02-Nov-2009 10:27 Encounter Reason: Follow up, Laboratory Test Results - Date: (10/18/09). Note for Follow up, Laboratory Test Results: her bp has been good at home no diastolic 80s- the diuretic has helped she is feeling well and she sa End: 02-Nov-2009 11:04 w Yudi and no polyps recheck 5 years- had cta had plaque but not significant-- no gerd, [ADDITIONAL REASON] Follow up, Diagnostic Procedure Results - Diagnostic tests include other (bone dexa). Date: (09/07/10). Encounter Diagnosis: Osteoporosis (733.00), Hypercholesterolemia (272.0), VITAMIN D DEFICIENCY, NOS (268.9), Hypertensive heart dx. (402.90), Colon Polyps, History of (V12.72), 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), HYPERGLYCEMIA, NOS (790.6), Yeast Infection: Candidiasis of Unspecified Site (112.9) [facility] Annotation/Addendum On: 19-Oct-2009 13:43 [facility] End: 19-Oct-2009 13:45 Office Visit On: 18-Aug-2009 8:22 Encounter Reason: Follow up, Diagnostic Procedure Results - Diagnostic tests include ultrasound (renal duplex- on paper). Date: (08/12/09). , [ADDITIONAL REASON] Follow up for chronic medical issues - The patient feels well with no complaints End: 18-Aug-2009 9:21 ,has good energy level and is sleeping well. Patient has been compliant with instructions. Current medication use: experiencing side effects (lightheadedness from benicar- stopped it) and compliant wit h dosing regimen. Patient sleeps 7 hours per night. Nutrition: balanced diet ,supplemental vitamins and low salt diet. The medical issues the patient is following up for include All identified problems below ,cardiac issues (cardiac dysrhythmia) ,gastric reflux ,high blood pressure ,high cholesterol ,osteoarthritis ,osteoporosis/osteopenia ,other (ddd, fatigue, vitamin d deficient) and peripheral vasc ular disease. blood pressure range : (130's/60's to 150's/70's) and weight :. Note for Follow up for chronic medical issues: didnt get colonsocopy- [facility] office never called her to schedule- and she didnt tolerate the benicar it made her dizzy Encounter Diagnosis: renovascular htn, VITAMIN D DEFICIENCY, NOS (268.9), Hypercholesterolemia (272.0), Colon Polyps, History of (V12.72), GERD (530.81), Osteoporosis (733.00), screening [facility] Office Visit On: 12-May-2009 8:22 Encounter Reason: Follow up for chronic medical issues - The patient feels well with no complaints and is sleeping well. Patient has been compliant with instructions. Current medication use: no side effects and compliant End: 13-May-2009 22:52 with dosing regimen. Patient sleeps 7 hours per night. Nutrition: balanced diet ,no supplemental vitamins & iron and low salt diet. The medical issues the patient is following up for include All id entified problems below ,gastric reflux ,high blood pressure ,high cholesterol ,osteoarthritis ,osteoporosis/osteopenia ,other (vit d deficient, ddd) and peripheral vascular disease. Note for Follow up for chronic medical issues: only zari lin a couple times a week and really helps her aches and pains- her gerd is good as long as eats rifht- vitamin d level is good - does snore -- has family hx of sleep apnea- less fatigue with vitamin d- than previously but stillhas but bp not controlled on 3 drugsEncounter Diagnosis: VITAMIN D DEFICIENCY, NOS (268.9), Hypertensive heart dx. (402.90), Hypercholesterolemia (272.0), Peripheral vascular disease (443.9), Fatigue (780.79), GERD (530.81), Abnormal mammogram (793.80), Colon Polyps, History of (V12.72) [facility] Historical Summary On: 30-Mar-2009 10:59 [facility] End: 30-Mar-2009 11:00 Office Visit On: 03-Feb-2009 11:36 Encounter Reason: Follow up, Laboratory Test Results - Date: (01/11/09). Note for Follow up, Laboratory Test Results: she is feeling alot better- chest pain gone fatigue improved and sinus bug gone- her whole family was End: 03-Feb-2009 22:43 sick with the same and she is doing alot better Encounter Diagnosis: vit d deficency, Hypertensive heart dx. (402.90), Fatigue (780.79), Chest pain (786.59), Acute sinusitis, unspecified (461.9), BRONCHITIS, NOT SPECIFIED ACUTE OR CHRONIC (490.) , Edema (782.3), Knee pain (719.46), lower ext edema, Urinary frequency (788.41) [facility] Office Visit On: 11-Jan-2009 9:26 Encounter Reason: Nasal discharge - The onset of the nasal discharge has been sudden and has been occurring in a persistent pattern for 1 weeks. The course has been constant. The nasal discharge is described as moderate. End: 11-Jan-2009 10:29 Note for Nasal discharge: yellow, [ADDITIONAL REASON] Follow up, Laboratory Test Results - Date: (01/06/09 under date of 10/02). , [ADDITIONAL REASON] Follow up for chronic medical issues - The patient does not feel well ,has decre ased energy level and is sleeping well. Patient has been compliant with instructions. Current medication use: no side effects and compliant with dosing regimen. Patient sleeps 7 hours per night. Nutriti on: balanced diet ,no supplemental vitamins & iron and low salt diet. The medical issues the patient is following up for include All identified problems below ,gastric reflux ,high blood pressure ,h igh cholesterol ,osteoarthritis ,osteoporosis/osteopenia ,other (ddd) and peripheral vascular disease. Encounter Diagnosis: Hypertensive heart dx. (402.90), Osteoarthritis (715.96), GERD (530.81), Osteoporosis (733.00), Hypercholesterolemia (272.0), Fatigue (780.79), Chest pain (786.59), Acute sinusitis, unspecified (461.9) [facility] Office Visit On: 02-Oct-2008 10:00 Encounter Reason: Follow up for chronic medical issues - The patient feels well with no complaints ,has good energy level and is sleeping well. Patient has been compliant with instructions. Current medication use: no eduarda End: 02-Oct-2008 10:42 e effects and compliant with dosing regimen. Patient sleeps 6 hours per night. Nutrition: balanced diet and no supplemental vitamins & iron. The medical issues the patient is following up for includ e All identified problems below ,cardiac issues (tachy) ,gastric reflux ,high blood pressure ,high cholesterol ,osteoarthritis ,osteoporosis/osteopenia ,other (ddd, edema) and peripheral vascular diseas e. Note for Follow up for chronic medical issues: not checking her bps- her knee still bothers her but she doesnt feel bad enough to do more venkat- her abis neg-- Encounter Diagnosis: Peripheral vascular disease (443.9), Hypertensive heart dx. (402.90), Hypercholesterolemia (272.0), GERD (530.81), Knee pain (719.46) [facility] Office Visit On: 30-Sep-2008 9:43 Encounter Diagnosis: Peripheral vascular disease (443.9) End: 30-Sep-2008 13:28 [facility] Nurse Visit On: 10-Jul-2008 15:13 Encounter Diagnosis: Need for prophylactic vaccination and inoculation against influenza (V04.81) End: 10-Jul-2008 15:14 [facility] Office Visit On: 30-Jun-2008 11:58 Encounter Reason: Follow up, Diagnostic Procedure Results - Diagnostic tests include X-Ray (knee). Date: (05/19/08). Note for Follow up, Diagnostic Procedure Results: knee significantly better since cold- went and walke End: 30-Jun-2008 12:29 d all day sun and sunday-- and so flared a little again-- she does think the mobic helped=-- and only use prn-- hasnt needed for 2-3 days== no swollen feet -- do some bp checks at home-- urinary freq go ne and carpal tunnel doing great- she reallly hasnt felt this good in ages - no claudication, [ADDITIONAL REASON] Follow up Meds - The patient feels well with minor complaints (feeling better wi th the knee pain. Over did it this past weekend and her knee is alittle stiff and sore, but overall better since last here. The mobic is helping with the knee pain, prn.) ,has good energy level and is s leeping well. Patient has been compliant with instructions. Current medication use: no side effects and compliant with dosing regimen. Patient sleeps 7 hours per night. Nutrition: balanced diet and no supplemental vitamins & iron. Encounter Diagnosis: Knee pain (719.46), Hypercholesterolemia (272.0), Peripheral vascular disease (443.9), Abnormal mammogram (793.80), Hypertensive heart dx. (402.90) [facility] Office Visit On: 19-May-2008 11:38 Encounter Reason: Follow up, Laboratory Test Results - Date: (04/23/08). Note for Follow up, Laboratory Test Results: her bp is bettter- and her leg is intermittently swelling in the left leg- and her left knee is reall End: 19-May-2008 22:04 y giving her pain when she walks or sleeps- and she is getting carpal tunnel back again in right arm - can she shake it out- had gone off her splint- , [ADDITIONAL REASON] Urinary problems - The onset of the urinary problems has been sudden and they have been occurring in a persistent pattern for 3 days. The course has been constant. The urinary probl ems are described as severe. The urinary problem is characterized as frequency and urgency. There has been no associated fever / chills ,back pain ,nausea or blood in urine. Past medical history : recurrent urinary tract infection. Encounter Diagnosis: Urinary frequency (788.41), Osteoarthritis (715.96), Hypercholesterolemia (272.0), Carpel tunnel syndrome (354.0) [facility] Office Visit On: 22-Apr-2008 16:59 Encounter Reason: Edema - The onset of the edema has been gradual and has been occurring in an intermittent pattern for 6 weeks. The course has been recurrent. The edema is described as being located in the left lower ex End: 23-Apr-2008 20:38 tremity. The symptoms have been associated with fatigue, while the symptoms have not been associated with abdominal pain ,chest pain ,fever ,itching ,known diabetes ,known heart disease ,redness ,use of new medication ,use of oral contraceptives ,use of steroids ,wheezing ,calf pain ,cough or short of breath. Note for Edema: the swelling is new- this has done however in past - but last was == has done traveling- and happens with traveling- no chest pain or sob- bps have been up as well, [ADDITIONAL REASON] Leg pain - The leg pain began suddenly and has been occurring for 1 weeks. The s ymptoms have been occurring in a persistent (with walking) pattern. The symptoms are described as a ache and sharp, stabbing pain and are moderate to severe. The symptoms occur at rest ,when lying down ,when walking and at night. There is involvement of the left lower extremity. There are no precipitating factors. Aggravating factors include exertion and lying flat. Relief is provided by other (elevat ion of leg). The symptoms have been associated with fatigue and muscle weakness, while the symptoms have not been associated with blurred vision ,chest pain ,dizziness ,numbness and tingling in toes ,vi sual disturbances or calf swelling. Note for Leg pain: no weakness or numbness in the leg-- feels different than sciatica-- feels heavy and tight Encounter Diagnosis: lower ext edema, Hypertensive heart dx. (402.90) [facility] Office Visit On: 10-Feb-2008 7:57 Encounter Reason: Sinusitis/ - The duration of the symptoms are 3 days The course has been worsening. The sinusitis/ has no relieving factors. Associated features include The symptoms have been associated with cough and End: 10-Feb-2008 8:49 nasal discharge/stuffy nose, while the symptoms have not been associated with ear pain ,sinus pain ,sore throat ,swollen lymph glands or teeth pain. No previous evaluations were reported. Encounter Diagnosis: Acute sinusitis, unspecified (461.9), Hypertensive heart dx. (402.90) [facility] Phone Encounter On: 28-Oct-2007 16:07 Encounter Diagnosis: OTHER SPECIFIED CARDIAC DYSRHYTHMIAS, OTHER (427.89) End: 28-Oct-2007 16:08 [facility] Office Visit On: 20-Sep-2007 10:28 Encounter Reason: Follow up tests - Diagnostic tests include RIGO and mammography. Date: (08/20/07). Current symptoms include other (muscle aches- right leg). Note for Follow up tests: pt states in general her leg pain End: 25-Sep-2007 8:04 is gone with respect to both aching off the zocor but now noting chronic pain in the right lateral calf-- this pain there all the time-- doesnt come and go not worse with exertion-- we did find mild vas cular disease in that leg-- laying down sometimes makes it sometimes go awayEncounter Diagnosis: Hypercholesterolemia (272.0), Degenerative Disc Disease - Lumbar (722.52), Abnormal mammogram (793.80), Peripheral vascular disease (443.9) [facility] Office Visit On: 07-Aug-2007 12:15 Encounter Diagnosis: claudication End: 07-Aug-2007 13:34 [facility] Office Visit On: 26-Jul-2007 11:37 Encounter Reason: Leg pain - The leg pain began gradually over time and has been occurring for 1 years. The symptoms have been occurring in a persistent pattern. The symptoms are described as a ache and are moderate to s End: 28-Jul-2007 16:10 evere. The symptoms occur at night and during the day. There is involvement of the lower extremities (both). There are no precipitating factors. There are no aggravating factors. Relief is provided by o ther (aleve). The symptoms have been associated with muscle weakness, while the symptoms have not been associated with chest pain ,dizziness ,fatigue ,numbness and tingling in toes ,foot/leg ulcers ,calf swelling ,fever or chills. , [ADDITIONAL REASON] Follow up for chronic medical issues - The patient feels well with minor complaints (leg myalgia) ,has good energy level and is sleeping well (unless her lags are aching). Patient h as been compliant with instructions. Current medication use: no side effects and compliant with dosing regimen. Nutrition: balanced diet and supplemental vitamins. The medical issues the patient is foll owing up for include All identified problems below ,gastric reflux ,high blood pressure ,high cholesterol ,osteoarthritis ,osteoporosis/osteopenia and other (edema, ddd). Note for Follow up for chronic medical issues: no leg swelling but legs are aching-- -- legs ache with walking -- aleve helps Encounter Diagnosis: Hypercholesterolemia (272.0), Colon Polyps, History of (V12.72), Hypertensive heart dx. (402.90), Osteoporosis (733.00), claudication [facility] Refill Request On: 31-Dec-2006 13:59 [facility] End: 31-Dec-2006 14:00 Office Visit On: 20-Nov-2006 8:33 Encounter Reason: Cough - The onset of the cough has been 3 weeks ago. The cough is characterized as productive of mucoid sputum. The amount of sputum produced is less than a half a cup per day. The cough occurs all the End: 20-Nov-2006 9:00 time. The symptoms have been associated with wheezing. the color of the sputum is yellowish. Encounter Diagnosis: BRONCHITIS, NOT SPECIFIED ACUTE OR CHRONIC (490.) [facility] Office Visit On: 12-Sep-2006 15:33 Encounter Reason: Edema - The onset of the edema has been acute (x approximately 2 weeks) and has been occurring in a persistent pattern for 2 weeks. The course has been increasing. The edema is described as being locate End: 18-Sep-2006 22:42 d in both lower extremities. The symptoms have been associated with fatigue. Note for Edema: also started lyrica when the swelling started and also on celebrex but was swelling prior to celebrex, [ADDITIONAL REASON] Follow up tests - Diagnostic tests include other (Holter Monitor). Date: (09/10/06). Current symptoms include other (LE Edema). Encounter Diagnosis: Edema (782.3), supraventricular ectopy- avoid caffeine and decongestants- has had recent full cardiac workup and not significant enough to treat- avoid caffeine and decongestants, Hypertensive heart dx. (402.90) [facility] Nurse Visit On: 10-Sep-2006 13:31 Encounter Diagnosis: Unspecified Diagnosis End: 10-Sep-2006 13:33 [facility] Historical Summary On: 04-Sep-2006 13:05 [facility] End: 04-Sep-2006 13:09 Office Visit On: 30-Jul-2006 10:32 Encounter Reason: Follow up, Laboratory Test Results - Date: (07/13/06-IN EMR, CMP,FLP,UA). , [ADDITIONAL REASON] Follow up tests - Diagnostic tests include chest X-ray (06/13/06-IN EMR) ,MRI ( End: 31-Jul-2006 14:16 15/03- IN EMR) and treadmill exercise stress test (06/13/06-IN EMR). , [ADDITIONAL REASON] Follow up for chronic medical issues - The patient has decreased energy level. T he medical issues the patient is following up for include high blood pressure ,high cholesterol and other (uti, herniated disc, fatigue). Note for Follow up for chronic medical issues: nausea gone- ap petite still some diminished- but believes partly secondary to pain and is presently in pt for her herniated disc- she saw [facility] and he is trying to avoid surgery- urinary frequency is gone and fatigue is somewhat better but not resolved- xray showed emphysema and we need to do spiromety- has 30-40 pack year hx Encounter Diagnosis: Hypercholesterolemia (272.0), Hypertensive heart dx. (402.90), OTHER SPECIFIED CARDIAC DYSRHYTHMIAS, OTHER (427.89) , Urinary tract infection, site not specified (599.0), Osteoporosis (733.00), GERD (530.81), Degenerative Disc Disease - Lumbar (722.52), Abnormal Chest X-Ray (793.9) [facility] Office Visit On: 13-Jun-2006 11:39 Encounter Reason: Nausea - The onset of the nausea has been gradual and has been occurring in an intermittent pattern for 4 hours. The course has been recurrent. The symptoms have no aggravating factors. , End: 14-Jun-2006 9:28 [ADDITIONAL REASON] Arthritis - The onset of the arthritis has been gradual and has been occurring in a persistent and all year round pattern. The course has been worsening. The arthritis is described as a severe dull ache and tightness. , [ADDITIONAL REASON] Follow up for chronic medical issues - The patient does not feel well (pain in hips and leg) ,has decreased energy level and is sleeping poorly. Patient has been compliant with inst ructions. Current medication use: no side effects. Patient sleeps 5 hours per night. Nutrition: balanced diet and supplemental vitamins. The medical issues the patient is following up for include gastri c reflux ,high blood pressure ,high cholesterol ,osteoarthritis and osteoporosis/osteopenia. blood pressure range : and weight :. Note for Follow up for chronic medical issues: bps are running 150-180/ 60-70 Encounter Diagnosis: Hypercholesterolemia (272.0), GERD (530.81), Hypertensive heart dx. (402.90), Osteoporosis (733.00) [facility] Historical Summary On: 12-Jun-2006 19:36 [facility] End: 12-Jun-2006 19:47 Payers MedicareAnthem [employer]/[facility], [place]/[employer]; a guarantor
--- OUTSIDE RECORDS SUMMARY | 2018-12-16 23:16 | XMS RPT_ITS | Continuity of Care Document ---
:1935 Author Organization [facility] Address [address] [facility] [address] [place] [address] Phone Care Team Providers Name Role Phone [...] {Package(s)} Refills: 0 Ordered:20-Nov-2006 [place] NI[facility], [facility] A Start : 20-Nov-2006 [...] : 30-Nov-2015 End : 30-Dec-2015 Inactive ZOSTAVAX, 81935UWM/0.65ML (Subcutaneous Solution Reconstituted) 1 For Solution x1-bring [...] : 05-Jun-2016 End : 05-Jun-2016 Discontinued ERGOCALCIFEROL, 75200CJWX (Oral Capsule) 1 (one) Capsule twice a [...] 500MG (Oral Capsule) 1 (one) Capsule bid y73ghva for 0 days Quantity: 20 {Capsule} Refills: [...] : 14-Jun-2016 End : 14-Jun-2016 Discontinued Comments:Lot #:[id number] date:07/2018Amount given:60mg/mlRoute: SQSite given: left armGiven by: [...] W/WO Contrast Result: Comments: See Note; NOTES: [facility] Imaging Services [address] [place] [address] CTA Neck W/WO Contrast MR#: [id number] Acct: [id number] Name: MANISH KERN Rep #: [id number] : 1935 F 83 From: Alvaro Lancaster MD PCP: Audrey Rodriguez DO Status: REG CLI Study: CTA Neck W/WO Contrast Date of Exam: 07/02/18 Exam# [id number] Ordering Dr: Audrey Rodriguez DO STUDY: CT [...] Normal pharyngeal and laryngeal structures. No ac k[place] intracranial process is evident in limited evaluation. [...] or vertebral artery stenosis. NASCET Criteria : Instrument Assembly Supervisor H, et al. Quantitative Vascular Measurements in Arterial Occlusive Disease. RadioGraphics 2005;25:2145-8861. Electronically Signed: Alvaro Lancaster, at 17:50 EDT Tel , Service support , CC: Audrey Rodriguez DO Acute Care Assistant: Signed 15-Jun-2018 Carotid Duplex Ultrasound Result: Comments: See Note; NOTES: [facility] Cardiovascular Services [address] [place] [address] Carotid Duplex Ultrasound 06/11/18 1013 MR#: [id number] Acct: [id number] Name: MANISH ERICKSON Rep #: [id number] : 1935 82 From: Archie Shipman MD Attending Dr: Audrey Rodriguez DO Status: REG CLI Ordering Dr: Audrey Rodriguez DO Date: 06/11/18 Location: [facility] Sex: F C Admitted: Reason For Study: [...] left verte bral artery. Procedure Carotid Duplex 06673. The exam was diagnostic. Exam performed in [...] Performed By: Leanna Scanlon, RDCS, RVT 06/15/18 4100 Date Archie Fowler MD CC: Audrey Rodriguez DO; Audrey Rodriguez DO Date Dictated: 06/11/18 1013 Date Transcribed: 06/15/18 1418 Acute Care Assistant: Signed 01-Jan-2018 Dexa Bone Density Study Result: Comments: See Note; NOTES: [facility] Imaging Services [address] [place] [address] Dexa Bone Density Study MR#: [id number] Acct: [id number] Name: MANISH KERN Rep #: [id number] : 1935 F 82 From: Arjun Weathers MD PCP: Audrey Rodriguez DO Status: REG CLI Study: Dexa Bone Density Study Date of Exam: 01/01/18 Exam# [id number] Ordering Dr: Audrey Rodriguez DO STUDY: DUAL [...] Arjun Weathers MD at 14:40 EDT Tel [phone], Service support , CC: Audrey Rodriguez DO Acute Care Assistant: Signed 25-Aug-2017 SCREENING MAMM (CAD), BILAT Result: Comments: See Note; NOTES: [facility] Imaging Services [address] [place] [address] SCREENING MAMM (CAD), BILAT MR#: [id number] Acct: [id number] Name: MANISH KERN Rep #: [id number] : 1935 F 82 From: Arjun Weathers MD PCP: Audrey Rodriguez DO Status: PRE CLI Study: SCREENING MAMM (CAD), BILAT Date of Exam: 08/25/17 Exam# [id number] Ordering Dr: Audrey Rodriguez DO MAMM OGRAPHY [...] delay biopsy of a clinically suspicious abnormality. II3840 Electronically Signed: Arjun Weathers MD at 9:39 EST Tel [phone], Service support , CC: Audrey Rodriguez DO Acute Care Assistant: Signed 07-Aug-2017 Venous Duplex Lower Extremity Result: Comments: See Note; NOTES: [facility] Cardiovascular Services [address] [place] [address] Venous Duplex US, Unilateral 08/06/17 1403 MR#: [id number] Acct: [id number] Name: MANISH LOGAN Rep #: [id number] : 1935 82 From: Archie Shipman MD [...] Date Dictated: 08/06/17 140 Date Transcribed: 08/07/172024 Acute Care Assistant: Signed 23-Jun-2017 Echocardiogram Complete Result: Comments: See Note; NOTES: [facility] Cardiovascular Services [address] [place] [address] Echo Complete 06/22/17 1002 MR#: [id number] Acct: [id number] Name: CONCHAMANISH ep #: [id number] : 1935 81 From: Mac Smith MD Attending Dr: Coco BERG,Elbert Status: REG CLI Ordering Dr: Elbert Sepulveda MD Date: 06/22/17 Location: [facility] Sex: F C Admitted: Reason For Study: [...] Dictated: 06/22/17 1002 Date Transcribed: 06/23/17 1203 Acute Care Assistant: Signed 03-May-2017 Carotid Duplex Ultrasound Result: Comments: See Note; NOTES: [facility] Cardiovascular Services [address] [place] [address] Carotid Duplex Ultrasound 05/03/17 1338 MR#: [id number] Acct: [id number] Name: MANISH ERICKSON Rep #: [id number] : 1935 81 From: Archie Shipman MD [...] the left vertebral artery. Procedure Carotid Duplex 44289. The exam was diagnostic. Exam performed in department. Interpretation Summary Mild (<50%) stenosis right extrac ranial internal carotid. Mild (<50%) stenosis left extracranial internal carotid. Flow within the vertebral arteries is antegrade bilaterally. Ordering Physician: Audrey Rodriguez Performed By: Lloyd Barclay Rayne 05/03/17 1620 Date Archie Shipman MD CC: Audrey Rodriguez DO Date Dictated: 05/03/17 1338 Date Transcribed: 05/03/17 162 Acute Care Assistant: Signed 02-May-2017 Chest PA and Lateral Result: Comments: See Note; NOTES: [facility] Imaging Services [address] [place] [address] Chest PA and Lateral MR#: [id number] Acct: [id number] Name: CONCHAMANISH Rep #: [id number] : 1935 F 81 From: Arjun Weathers MD PCP: Audrey Rodriguez DO Status: REG CLI Study: Chest PA and Lateral Date of Exam: 05/02/17 Exam# [id number] Ordering Dr: Audrey Rodriguez DO STUDY: X-RAY [...] Arjun Weathers MD at 15:31 EDT Tel [phone], Service support , CC: Audrey Rodriguez DO Acute Care Assistant: Signed 11-Aug-2016 Bilat Scrn Digital AND CAD Result: Comments: See Note; NOTES: [facility] Imaging Services [address] [place] [address] Verdana 4d Bilat Scrn Digital AND CAD MR#: [id number] Acct: [id number] Name: MANISH KERN Rep #: [id number] : 1935 F 81 From: Arjun Weathers MD PCP: Audrey Rodriguez DO Status: REG CLI Study: Bilat Scrn Digital AND CAD Date of Exam: 08/11/16 Exam# [id number] Ordering Dr: Audrey Rodriguez DO MAMMOGRAPHY - [...] delay biopsy of a clinically suspicious abnormality. XL0123 Electronically Signed: Arjun Weathers MD at 13:43 EST Te l [phone], Service support [phone], CC: Audrey Rodriguez DO Acute Care Assistant: Signed 14-Jun-2016 Carotid Duplex Ultrasound Result: Comments: See Note; NOTES: [facility] Cardiovascular Services [address] [place] [address] Carotid Duplex Ultrasound 06/08/16 1257 MR#: [id number] Acct: [id number] Name: MANISH HADLEY Rep #: [id number] : 1935 80 From: Max Bustillos MD Attending Dr: Audrey Rodriguez DO Status: REG CLI Ordering Dr: Audrey Rodriguez DO Date: 06/08/16 Location: [facility] Sex: F C Admitted: Reas on For [...] Dictated: 06/08/16 1257 Date Transcribed: 06/14/16 1220 Acute Care Assistant: Signed 05-Apr-2016 Knee 4 or More Views Result: Comments: See Note; NOTES: [facility] Imaging Services [address] [place] [address] Verdana 4d Knee 4 or More Views MR#: [id number] Acct: [id number] Name: MANISH KERN Rep #: [id number] : 1935 F 80 From: Arjun Weathers MD PCP: Audrey Rodriguez DO Status: REG CLI Study: Knee 4 or More Views Date of Exam: 04/05/16 Exam# [id number] Ordering Dr: Hayley Rodriguez DO STUDY: X-RAY [...] Weathers MD 04/05 at 10:47 EDT Tel [phone], Service support [phone], RAD/Knee 4 or More Views IMPRESSION: Degenerative arthrosis. Chondrocalcinosis. Small joint effusion. Electronically Signed: Arjun Weathers MD at 10:47 EDT Tel [phone], Service support [phone], CC: Audrey Rodriguez DO Acute Care Assistant: Signed 28-Dec-2015 Dexa Bone Density Study () Result: Comments: See Note; NOTES: [facility] Imaging Services [address] [place] [address] Verda 4d Dexa Bone Density Study () MR#: [id number] Acct: [id number] Name : MANISH KERN Rep #: [id number] : 1935 F 80 From: Arjun Weathers MD PCP: Audrey Rodriguez DO Status: REG CLI Study: Dexa Bone Density Study () Date of Exam: 12/28/15 Exam# [id number] Marina velazquez Dr: Audrey Rodriguez DO STUDY: [...] Society for Clinical Densitometry http://www.iscd.org 3. [facility] Osteoporosis Foundation http://www.nof.org Electronically Signed: Arjun Weathers MD at 12:54 EDT Tel [phone], Service support [phone], CC: Syl Rodriguez DO Acute Care Assistant: Signed 12-Nov-2015 ELECTROCARDIOGRAM, COMPLETE (ECG) (28925) Comments: ekg showed normal sinus rhythym, normal axis, no acute st/t wave changes lvh no change Result: [MEASUREMENTS ANALYSIS] Date of Test: 11/12/2015 10:43:53; Heart Rate: 54; MA Interval: 174; QRS: 98; QT Interval: 448; Corrected QT Interval (QTc): 438; P Wave Cranbury: 36; QRS Wave Cranbury: -21; T Wave Cranbury : 18; Blood Pressure: 168/84 [ECG DIAGNOSTIC STATEMENTS] Date of Test: 11/12/2015 10:43:53; Summary: Sinus Bradycardia Voltage criteria for LVH (R(I)+S(III) exceeds 2.50 mV) -Voltage criteria w/o ST/ T abnormality may be normal. -Poor R-wave progression -nonspecific -consider old anterior infarct. BORDERLINE 11-Aug-2015 Carotid Duplex Ultrasound Result: Comments: See Note; NOTES: [facility] Cardiovascular Services [address] [place] [address] Carotid Duplex Ultrasound 08/05/15 0957 MR#: [id number] Acct: [id number] Name: MANISH KERN Rep #: [id number] : 1935 80 From: Max Bustillos MD [...] the left bulb . Procedure Carotid Duplex 00573. Exam performed in department. Interpretation Summary Mild (<50%) stenosis right extracranial internal carotid. Mild (<50%) stenosis left extracra nial internal carotid. Flow within the vertebral arteries is antegrade bilaterally. Ordering P hysician: Audrey Rodriguez Performed By: Isabel Kern RDCS 08/11/15802 Date B tim Bustillos MD CC: Audrey Rodriguez DO Date Dictated: 08/05/15 0957 Date Transcribed: 08/11/15802 Acute Care Assistant: Signed 10-Aug-2015 Bilat Scrn Digital AND CAD Result: Comments: See Note; NOTES: [facility] Imaging Services [address] [place] [address] Verdana 4d Bilat Scrn Digital AND CAD MR#: [id number] Acct: [id number] Name: MANISH KERN Rep #: [id number] : 1935 F 80 From: Arjun Weathers MD PCP: Audrey Rodriguez DO Status: REG CLI Study: Bilat Scrn Digital AND CAD Date of Exam: 08/10/15 Exam# [id number] Ordering Dr: Audrey Rodriguez DO MAMMOGRAPHY - [...] Arjun Weathers MD at 13:35 EST Tel [phone], Service support [phone], CC: Audrey Rodriguez DO Acute Care Assistant: Signed 28-Jul-2014 Bilat Scrn Digital & CAD Result: Comments: See Note; NOTES: [facility] Imaging Services [address] [place] [address] Breast Imaging Report MR#: [id number] Acct: [id number] Name: MANISH KERN Rep #: [id number] : 1935 F 79 From: Arjun Weathers MD PCP: Audrey Rodriguez DO Status: REG CLI Exam# [id number] Ordering Dr: Audrey Rodriguez DO MAMMOGRAPHY - [...] Arjun Weathers MD at 10:23 EST Tel [phone], S ervice support [phone], CC: Audrey Rodriguez DO Acute Care Assistant: Signed 16-Jul-2014 Echocardiogram Complete Result: Comments: See Note; NOTES: [facility] Cardiovascular Services [address] [place] [address] Echo Complete 07/15/14 1204 MR#: [id number] Acct: [id number] Name: DO YUVAL KERN Rep #: [id number] : 1935 79 From: Jhon Parker MD Attending Dr: Audrey Rodriguez DO Status: REG CLI Ordering Dr: Audrey Rodriguez DO Date: 07/15/14 Location: [facility] Sex: F C [facility], Color [...] DO Date Dictated: 06/25 Date Transcribed: 07/16/141208 Acute Care Assistant: Signed 06-Jul-2014 Carotid Duplex Ultrasound Result: Comments: See Note; NOTES: [facility] Cardiovascular Services [address] [place] [address] 06/26/14 0932 MR#: [id number] Acct: [id number] Name: MANISH KERN Rep #: [id number] : 1935 [...] in the left bulb. Procedure Carotid Duplex 16583. The exam was diagnostic. Exam performed in [...] Date Dictate d: 06/26/14931 Date Transcribed: 06/28/142152 Acute Care Assistant: Signed 29-Dec-2013 Abdomen/Pelvis without Cont Result: Comments: See Note; NOTES: [facility] Imaging Services [address] [place] [place] [address] CAT Scan Report MR#: [id number] Acct: [id number] Name: CONCHAMANISH Rep #: [id number] : 1935 F 78 From: Medhat Leach MD PCP: Audrey Rodriguez DO Status: REG CLI Study: Abdomen/Pelvis without Cont Date of Exam: 12/29/13 Exam# [id number] Ordering Dr: Sabina Damon DO GELA DY: [...] at 13:28 EDT Tel , Service support [phone], CC: Audrey Rodriguez DO; Sabina Damon DO Acute Care Assistant: Signed 14-Oct-2013 Dexa Bone Density Study (HP) Result: Comments: See Note; NOTES: [facility] Imaging Services [address] [place] [address] Bone Density Report MR#: [id number] Acct: [id number] Name: MANISH KERN Rep #: [id number] : 1935 F 78 From: Arjun Weathers MD PCP: Audrey Rodriguez DO Status: REG CLI Study: Dexa Bone Density Study (HP) Date of Exam: 10/14/13 Exam# [id number] Ordering Dr: Audrey Rodriguez DO STUDY: DUAL [...] M.D. at 15:58 EST , Service support [phone], CC: Audrey Rodriguez DO Acute Care Assistant: Signed Immunization Name Dates Details Influenza (3 [...] DM Status: Active Sister 1 Comments: , DC- age 52 Status: Active Sister 2 Comments: [...] Height 0 in Head Circumference 0.00 cm 07-Xvv-451659:39 Temperature 97.5 f Comments: Method: Oral Pulse [...] Description Value Details :32 CREATININE FINGERSTICK Comments: [facility] [place] [address] [place], [place] [id number] EGFR WB > 60.0000 mL/min (Normal) CREATININE WB 0.7 mg/dL (Normal) Range: 0.55-1.02 9-Vsi-802996:21 CBC with auto diff (27577) Comments: PATIENT WAS FASTINGPERFORMED BY: [facility] Amsadl5467 [facility] [id number] Immature Grans (Abs) 0.0 {x10E3/uL} (Normal) Range: [...] 3.77-5.28 WBC 5.9 {x10E3/uL} (Normal) Range: 3.4-10.8 9-Ecb-937239:21 LIPID PANEL (77761) Comments: PATIENT WAS FASTINGPERFORMED BY: [employer] Tfsmzy4574 [facility] [id number] LDL/HDL Ratio 2.3 {ratio} (Normal) Range: 0.0-3.2 Comments: LDL/HDL Ratio Men Women 1/2 Avg.Risk 1.0 1.5 Av g.Risk 3.6 3.2 2X Avg.Risk 6.2 5.0 3X Avg.Risk 8.0 6.1 LDL Cholesterol Calc 94 mg/dL (Normal) Range: 0-99 VLDL Cholesterol Alexander 30 mg/dL (Normal) Range: 5-40 HDL Cholesterol 41 mg/dL (Normal) Triglycerides 149 mg/dL (Normal) Range: 0-149 Cholesterol, Total 165 mg/dL (Normal) Range: 100-199 6-Leo-459627:21 MICROALBUMIN: CREATININE RATIO Comments: PATIENT WAS FASTINGPERFORMED BY: [employer] [facility] Cbnrby3827 [facility] [id number] (75766) AND (45621) Alb/Creat Ratio 6.6 {mg/g_creat} (Normal) Range: 0.0-30.0 Comments: Normal: 0.0 - 30.0 Albuminuria: 31.0 - 300.0 Clinical albuminuria: >300.0 Albumin, Urine 3.9 ug/mL (Normal) Creatinine, Urine 58.9 mg/dL (Normal) 9-Mwg-802106:21 METABOLIC PANEL, COMPREHENSIVE Comments: PATIENT WAS FASTINGPERFORMED BY: [facility] [employer] Joipdt8257 [facility] [id number]; appt 09/30 (71511) ALT (SGPT) 19 [iU]/L (Normal) Range: 0-32 [...] 8-27 Glucose 104 mg/dL (Abnormal) Range: 65-99 8-Lec-278374:21 HGB A1C (82669) Comments: PATIENT WAS FASTINGPERFORMED BY: [employer] Pckmii8536 [facility] [id number] Hemoglobin A1c 5.6 % (Normal) Range: 4.8-5.6 Comments: . Prediabetes: 5.7 - 6.4 Diabetes: >6.4 Glycemic control for adults with diabetes: <7.0 80-Tow-97045:29 Hemoglobin A1c 5.5 % (Normal) Comments: PATIENT WAS FASTINGPERFORMED BY: [employer] [facility] [id number] Range: 4.8-5.6 Comments: . Prediabetes: 5.7 - 6.4 Diabetes: >6.4 Glycemic control for adults with diabetes: <7.0 :29 VITAMIN B-12 (CYANOCOBALAMIN) Comments: PATIENT WAS FASTINGPERFORMED BY: [facility] Vlfvhq4115 Carrizales RoadDublin [place] [id number] (53945) Vitamin B12 583 pg/mL (Normal) Range: 232-1245 :29 Vitamin D Hydroxy (31350) Comments: PATIENT WAS FASTINGPERFORMED BY: [facility] Wtflfe8652 [address] [facility] HospitalDublin [place] [id number] Vitamin D, 25-Hydroxy 54.1 ng/mL (Normal) Range: 30.0-100.0 Comments: Vitamin D deficiency has been defined by the Bland ofMer[facility] Health Clermont Hospitalcine and an Endocrine Society practice guideline as alevel of serum 25-OH vitamin D less than 20 ng/mL (1,2).The Endocrine Society went on to further define vitamin Dinsufficiency as a level between 21 and 29 ng/mL (2).1. IOM (Bland of Medicine). 2010. Dietary reference intakes for calcium and D. [place]: The National Academies Press.2. Freddy MF, Pineda NC, Brody KHOURY, et al. Evaluation, treatment, and prevention of vitamin D deficiency: an Endocrine Society clinical practice guideline. JCEM. 2010; 96(7):1911-30. :29 LIPID PANEL (48186) Comments: PATIENT WAS FASTINGPERFORMED BY: [facility] Erentv6415 [address] [facility] HospitalDublin [place] [id number] LDL/HDL Ratio 2.4 {ratio} (Normal) Range: 0.0-3.2 Comments: LDL/HDL Ratio Men Women 1/2 Avg.Risk 1.0 1.5 Av g.Risk 3.6 3.2 2X Avg.Risk 6.2 5.0 3X Avg.Risk 8.0 6.1 LDL Cholesterol Calc 94 mg/dL (Normal) Range: 0-99 VLDL Cholesterol Alexander 28 mg/dL (Normal) Range: 5-40 HDL Cholesterol 40 mg/dL (Normal) Triglycerides 140 mg/dL (Normal) Range: 0-149 Cholesterol, Total 162 mg/dL (Normal) Range: 100-199 15-Tiz-40268:29 METABOLIC PANEL, COMPREHENSIVE Comments: PATIENT WAS FASTINGPERFORMED BY: [facility]CoMarl[facility] Rehabilitation HospitalOsbroy6793 [facility] [id number]; will discuss at aura 06/24 (11654) ALT (SGPT) 13 [iU]/L (Normal) Range: 0-32 [...] 8-27 Glucose 97 mg/dL (Normal) Range: 65-99 14-Hvm-165182:03 Microscopic Examination Comments: PATIENT WAS FASTINGPERFORMED BY: [facility]CoMarl[facility] Rehabilitation HospitalKwesqp8468 [facility] [id number] Bacteria Few (Normal) Epithelial Cells (non renal) 0-10 {/hpf} (Normal) Range: 0 - 10 RBC None seen {/hpf} (Normal) Range: 0 - 2 WBC 0-5 {/hpf} (Normal) Range: 0 - 5 :03 URINALYSIS, W/ MICRO (06827) Comments: PATIENT WAS FASTINGPERFORMED BY: [facility]Cards.comMarlton Rehabilitation HospitalZxbcpu4779 [facility] [id number] Microscopic Examination See below: (Normal) Comments: Microscopic was indicated and was performed. Nitrite, Urine Negative (Normal) Urobilinogen,Semi-Qn 0.2 mg/dL (Normal) Range: 0.2-1.0 Bilirubin Negative (Normal) Occult Blood Negative (Normal) Ketones Negative (Normal) Glucose Negative (Normal) Protein Negative (Normal) WBC Esterase Trace (Abnormal) Appearance Clear (Normal) Urine-Color Yellow (Normal) pH 7.5 (Normal) Range: 5.0-7.5 Specific Kincaid 1.010 (Normal) Range: 1.005-1.030 21-Icg-780459:03 MICROALBUMIN: CREATININE RATIO Comments: PATIENT WAS FASTINGPERFORMED BY: CreditCards.comMarlton Rehabilitation HospitalCictqd3019 [facility] [id number] (91244) AND (41317) Alb/Creat Ratio <8.4 {mg/g_creat} (Normal) Range: 0.0-30.0 Albumin, Urine <3.0 ug/mL (Normal) Creatinine, Urine 35.9 mg/dL (Normal) :03 CBC W/AUTO DIFF WBC (65537) Comments: PATIENT WAS FASTINGPERFORMED BY: CreditCards.comMarlton Rehabilitation HospitalCkiyyl0767 [facility] [id number] Immature Grans (Abs) 0.0 {x10E3/uL} (Normal) Range: [...] 3.77-5.28 WBC 5.4 {x10E3/uL} (Normal) Range: 3.4-10.8 70-Ncy-137083:03 METABOLIC PANEL, COMPREHENSIVE Comments: PATIENT WAS FASTINGPERFORMED BY: LabCoMarl[facility] Rehabilitation HospitalBtmlzs0351 [facility] [id number]; review on 03/13 (73661) ALT (SGPT) 13 [iU]/L (Normal) Range: 0-32 [...] 8-27 Glucose 104 mg/dL (Abnormal) Range: 65-99 62-Msw-637071:03 LIPID PANEL (05583) Comments: PATIENT WAS FASTINGPERFORMED BY: [employer] LabOrthos6370 [facility] Orthodontic TechnologiesRutherford Regional [facility] System [id number] LDL/HDL Ratio 2.5 {ratio} (Normal) Range: 0.0-3.2 Comments: LDL/HDL Ratio Men Women 1/2 Avg.Risk 1.0 1.5 Av g.Risk 3.6 3.2 2X Avg.Risk 6.2 5.0 3X Avg.Risk 8.0 6.1 LDL Cholesterol Calc 112 mg/dL (Abnormal) Range: 0-99 VLDL Cholesterol Alexander 22 mg/dL (Normal) Range: 5-40 HDL Cholesterol 44 mg/dL (Normal) Triglycerides 108 mg/dL (Normal) Range: 0-149 Cholesterol, Total 178 mg/dL (Normal) Range: 100-199 69-Vzf-454330:03 VITAMIN B-12 (CYANOCOBALAMIN) Comments: PATIENT WAS FASTINGPERFORMED BY: [facility] Fusdvv6860 [facility] [id number] (22481) Vitamin B12 453 pg/mL (Normal) Range: 232-1245 75-Hsw-944229:06 Vitamin D Hydroxy (99054) Comments: PATIENT WAS FASTINGPERFORMED BY: [facility] Jjodnf3025 [facility] [id number] Vitamin D, 25-Hydroxy 69.0 ng/mL (Normal) Range: 30.0-100.0 Comments: Vitamin D deficiency has been defined by the Bland ofMedicine and an Endocrine Society practice guideline as alevel of serum 25-OH vitamin D less than 20 ng/mL (1,2).The Endocrine Society went on to further define vitamin Dinsufficiency as a level between 21 and 29 ng/mL (2).1. IOM (Bland of Medicine). 2010. Dietary reference intakes for calcium and D. [place]: The National Academies Press.2. Freddy MF, Pineda EUBANKS, Brody KHOURY, et al. Evaluation, treatment, and prevention of vitamin D deficiency: an Endocrine Society clinical practice guideline. JCEM. 2010; 96(7):1911-30. 64-Zeo-973001:06 VITAMIN B-12 (CYANOCOBALAMIN) Comments: PATIENT WAS FASTINGPERFORMED BY: [employer] [place] [id number] (41274) Vitamin B12 519 pg/mL (Normal) Range: 232-1245 72-Rce-383204:06 LIPID PANEL (95750) Comments: PATIENT WAS FASTINGPERFORMED BY: [facility] [id number] LDL/HDL Ratio 2.5 {ratio_units} (Normal) Range: 0.0-3.2 Comments: LDL/HDL Ratio Men Women 1/2 Avg.Risk 1.0 1.5 Av g.Risk 3.6 3.2 2X Avg.Risk 6.2 5.0 3X Avg.Risk 8.0 6.1 LDL Cholesterol Calc 100 mg/dL (Abnormal) Range: 0-99 VLDL Cholesterol Alexander 25 mg/dL (Normal) Range: 5-40 HDL Cholesterol 40 mg/dL (Normal) Triglycerides 127 mg/dL (Normal) Range: 0-149 Cholesterol, Total 165 mg/dL (Normal) Range: 100-199 78-Fpp-547136:06 METABOLIC PANEL, COMPREHENSIVE Comments: PATIENT WAS FASTINGPERFORMED BY: [email or web address] [facility] NetworkCritical access hospital [id number]; review at 11/13 appt (09721) ALT (SGPT) 12 [iU]/L (Normal) Range: 0-32 [...] Glucose, Serum 91 mg/dL (Normal) Range: 65-99 60-Obj-29928:58 CBC W/Diff, Automated Comments: [facility] [address] [place], [place], [id number] Absolute Lymph 1.41 {X10_3/ul} (Normal) Range: 0.83-4.51 [...] (Normal) Range: 4.4-11.0 :58 Hemoglobin A1c Comments: [facility] Pdfrdbukot[address] [place], [place], [id number] HGB A1C 5.7 % (Normal) Range: 4.2-6.3 25-Yio-018277:09 Fecal Occult Blood , Office (Inhouse) (02130) Fecal Occult Blood , Office (Inhouse) Negative (Normal) Comments: error 5-Wgv-185760:07 Basic Metabolic Profile (BMP) Comments: [facility] Byspucdjoh[address] [facility] [address] [place], [place], [address] GAP 10 (Normal) Range: 5-15 CO2 27.0 [...] 7-18 GLU 98 mg/dL (Normal) Range: 70-110 5-Awg-333466:07 CBC-Complete Blood Cnt No Diff Comments: [facility] [address] [place], [address] MPV 10.8 fL (Normal) Range: 6.2-12.0 PLT [...] 4.2-5.4 WBC 6.2 K/mm3 (Normal) Range: 4.4-11.0 69-Pnq-134944:25 HgA1C , Office (45550) HgA1C , Office 5.6 % (Normal) Range: 4.6 - 7.1 64-Xrw-408074:25 Blood Glucose , Office (75629) Blood Glucose , Office 106 (Normal) 45-Rvi-221517:30 VITAMIN B-12 Comments: PATIENT WAS FASTINGPERFORMED BY: Adaptivity7 [facility] [id number] BY: Noveporter KneoWorld [facility] [id number] (CYANOCOBALAMIN) (53116) Vitamin B12 511 pg/mL (Normal) Range: 211-946 62-Pqk-566889:30 MICROALBUMIN: CREATININE Comments: PATIENT WAS FASTINGPERFORMED BY: Watchfinder[address] [id number] BY: Noveporter Dbisyn1284 [facility] SystemAlvos TherapeuticCritical access hospital [id number] RATIO (00999) AND (68191) Microalb/Creat Ratio 7.0 {mg/g_creat} (Normal) Range: 0.0-30.0 Microalbumin, Urine 3.6 ug/mL (Normal) Creatinine, Urine 51.4 mg/dL (Normal) 51-Wov-943441:30 CBC W/AUTO DIFF WBC Comments: PATIENT WAS FASTINGPERFORMED BY: BN [facility] Nolgwadnnr4364 [facility] [id number] BY: CB [facility] Onnfid4008 [facility] [id number] (79704) Immature Grans (Abs) 0.0 {x10E3/uL} (Normal) Range: [...] 3.77-5.28 WBC 6.1 {x10E3/uL} (Normal) Range: 3.4-10.8 42-Mdv-109432:30 METABOLIC PANEL, Comments: PATIENT WAS FASTINGPERFORMED BY: LabCo[address] [id number] BY: LabEco MarketMarlton Rehabilitation HospitalOiivfa1260 [facility] [id number] COMPREHENSIVE (71047) ALT (SGPT) 13 [iU]/L (Normal) Range: 0-32 [...] Glucose, Serum 102 mg/dL (Abnormal) Range: 65-99 96-Lah-092693:30 LIPOPROTEIN, BLD, BY NMR Comments: PATIENT WAS FASTINGPERFORMED BY: LabCo[address] [id number] BY: LabCoJoyce Ville 1982370 [facility] [id number]; non-emergent till apt (84162) LP-IR Score 60 (Abnormal) Comments: INSULIN RESISTANCE MARKER <--Insulin Sensitive Insulin Resistant--> Percentile in Reference PopulationInsulin Resistance ScoreLP-IR Score Low 25th 50th 75th High <27 27 45 63 >63LP-IR Score is inaccurate if patient is non-fasting. .The LP-IR score is a laboratory developed i [facility] that has beenassociated with insulin resistance and [...] were developed and their performance characteristicsdetermined by GELI. These assays have not been cleared by [...] 1600 - 2000 Very High > 2000 23-Gyn-726050:47 Urinalysis, Office (01705) UA - LEUKOCYTE ESTERASE Small (Normal) UA - NITRITE Negative (Normal) URINE UROBILINGN KOLBY TIMED Normal mg/dL (Normal) UA - PROTEIN Negative mg/dL (Normal) UA - PH 6.5 (Normal) UA - BLOOD Negative (Normal) UA - SPECIFIC GRAVITY 1.015 (Normal) UA - KETONES Negative mg/dL (Normal) UA - BILIRUBIN Negative (Normal) UA - GLUCOSE Negative (Normal) 65-Npk-028553:42 URINE TEA CULTURE-IDENTIFICATN Comments: PATIENT NOT FASTINGPERFORMED BY: Contemporary Analysis [facility] [id number] Information: SRC:UC (30505) Result 1 MUG (Normal) Comments: Mixed urogenital flora25,000-50,000 colony forming units per mL Urine Final report (Normal) Culture,Comprehensive 25-Her-632295:25 HgA1C , Office (92134) HgA1C , Office 5.4 % (Normal) Range: 4.6 - 7.1 05-Wjx-588256:31 MICROALBUMIN: CREATININE Comments: PATIENT WAS FASTINGPERFORMED BY: Scrapblog [facility] [id number] BY: gBox6370 [facility] [id number] RATIO (57470) AND (81382) Microalb/Creat Ratio 77.7 {mg/g_creat} (Abnormal) Range: 0.0-30.0 Microalbumin, Urine 30.3 ug/mL (Normal) Creatinine, Urine 39.0 mg/dL (Normal) 08-Kmo-407727:31 CBC, PLATELETS & AUT DIFF Comments: PATIENT WAS FASTINGPERFORMED BY: Watchfinderton1447 [facility] [id number] BY: LabCoMarlton Rehabilitation HospitalIlbxyn6757 [facility] [id number] (42297) Immature Grans (Abs) 0.0 {x10E3/uL} (Normal) Range: [...] 3.77-5.28 WBC 5.7 {x10E3/uL} (Normal) Range: 3.4-10.8 39-Xbp-017112:31 VITAMIN B-12 Comments: PATIENT WAS FASTINGPERFORMED BY: Lab[address] [id number] BY: LabMymichigan Medical Center [facility]aginaw6370 [facility] [id number] (CYANOCOBALAMIN) (55357) Vitamin B12 604 pg/mL (Normal) Range: 211-946 97-Wjj-634659:31 METABOLIC PANEL, Comments: PATIENT WAS FASTINGPERFORMED BY: CreditCards.com[address] [id number] BY: CreditCards.comMarlton Rehabilitation HospitalQmlhdz6153 [facility] [id number] COMPREHENSIVE (25556) ALT (SGPT) 22 [iU]/L (Normal) Range: 0-32 [...] Glucose, Serum 101 mg/dL (Abnormal) Range: 65-99 00-Ujp-088898:31 LIPOPROTEIN, BLD, BY NMR Comments: PATIENT WAS FASTINGPERFORMED BY: CreditCards.com[address] [id number] BY: CreditCards.comMarlton Rehabilitation HospitalNsfyef5061 [facility] [id number] (14642) LP-IR Score 72 (Abnormal) Comments: INSULIN RESISTANCE MARKER <--Insulin Sensitive Insulin Resistant--> Percentile in Reference PopulationInsulin Resistance ScoreLP-IR Score Low 25th 50th 75th High <27 27 45 63 >63LP-IR Score is inaccurate if patient is non-fasting. .The LP-IR score is a laboratory developed i [facility] that has beenassociated with insulin resistance and [...] 1600 - 2000 Very High > 2000 5-Fzi-728377:22 HGB A1C (16051) Comments: PATIENT WAS FASTINGPERFORMED BY: CreditCards.com[address] [id number] BY: CreditCards.comMarlton Rehabilitation HospitalFymlmx2569 [facility] [id number] Hemoglobin A1c 5.8 % (Abnormal) Range: 4.8-5.6 Comments: . Pre-diabetes: 5.7 - 6.4 Diabetes: >6.4 Glycemic control for adults with diabetes: <7.0 7-Wpp-398389:22 VITAMIN B-12 (CYANOCOBALAMIN) Comments: PATIENT WAS FASTINGPERFORMED BY: CreditCards.com[address] [id number] BY: CreditCards.comJoyce Ville 1982370 [facility] [id number] (57085) Vitamin B12 511 pg/mL (Normal) Range: 211-946 8-Opa-773945:22 CBC W/AUTO DIFF WBC Comments: PATIENT WAS FASTINGPERFORMED BY: CreditCards.com[address] [id number] BY: CreditCards.com[address] [id number] (78141) Immature Grans (Abs) 0.0 {x10E3/uL} (Normal) Range: [...] 3.77-5.28 WBC 5.9 {x10E3/uL} (Normal) Range: 3.4-10.8 3-Npz-954147:22 METABOLIC PANEL, Comments: PATIENT WAS FASTINGPERFORMED BY: BN [facility] [address] [id number] BY: CB [facility] Cgbibl5750 [facility] [id number] COMPREHENSIVE (69463) ALT (SGPT) 18 [iU]/L (Normal) Range: 0-32 [...] Glucose, Serum 92 mg/dL (Normal) Range: 65-99 1-Afg-002309:22 LIPOPROTEIN, BLD, BY NMR Comments: PATIENT WAS FASTINGPERFORMED BY: BN [facility] [address] [id number] BY: CB [facility] Lfiltx2620 [facility] [id number]; non-emergent till apt (91271) LP-IR Score 73 (Abnormal) Comments: INSULIN RESISTANCE MARKER <--Insulin Sensitive Insulin Resistant--> Percentile in Reference PopulationInsulin Resistance ScoreLP-IR Score Low 25th 50th 75th High <27 27 45 63 >63LP-IR Score is inaccurate if patient is non-fasting. .The LP-IR score is a laboratory developed i [facility] that has beenassociated with insulin resistance and [...] were developed and their performance characteristicsdetermined by GELI. These assays have not been cleared by [...] 1600 - 2000 Very High > 2000 1-Hth-816212:22 Vitamin D Hydroxy Comments: PATIENT WAS FASTINGPERFORMED BY: LabCoInspira Medical Center Mullica HillTeldzqdyzd9089 [facility] [id number] BY: [facility] Syjvvy3192 [facility] [id number] (99750) Vitamin D, 25-Hydroxy 59.7 ng/mL (Normal) Range: 30.0-100.0 Comments: Vitamin D deficiency has been defined by the Bland ofMedicine and an Endocrine Society practice guideline as alevel of serum 25-OH vitamin D less than 20 ng/mL (1,2).The Endocrine Society went on to further define vitamin Dinsufficiency as a level between 21 and 29 ng/mL (2).1. IOM (Bland of Medicine). 2010. Dietary reference intakes for calcium and D. [place]: The National Academies Press.2. Freddy MF, Pineda NC, Brody KHOURY, et al. Evaluation, treatment, and prevention of vitamin D deficiency: an Endocrine Society clinical practice guideline. JCEM. 2010; 96(7):1911-30. :37 HgA1C , Office (19832) HgA1C , Office 5.6 % (Normal) Range: 4.6 - 7.1 4-Ggh-719648:25 Lipid Panel With LDL/HDL Comments: PATIENT NOT FASTINGPERFORMED BY: LabCo Ykzqic6553 CarrizalesSt. [facility] [id number] Information: [id number] Ratio LDL/HDL Ratio 2.4 {ratio_units} Range: 0.0-3.2 [...] (Normal) Comments: PATIENT NOT FASTINGPERFORMED BY: [facility] Meeqre4722 [facility] [id number] 0:25 Comments: Written Authorization Received.Authorization received from KINDRA VARGAS [id number] by Madie Huynh 1-Gla-700193:24 Vitamin D Hydroxy (88442) Comments: PATIENT WAS FASTINGPERFORMED BY: AmeiboSaint John'S HospitalAnlgpg1335 [facility] [id number] Vitamin D, 25-Hydroxy 32.9 ng/mL (Normal) Range: 30.0-100.0 Comments: Vitamin D deficiency has been defined by the Bland ofMercy Health Clermont Hospitalcine and an Endocrine Society practice guideline as alevel of serum 25-OH vitamin D less than 20 ng/mL (1,2).The Endocrine Society went on to further define vitamin Dinsufficiency as a level between 21 and 29 ng/mL (2).1. IOM (Bland of Medicine). 2010. Dietary reference intakes for calcium and D. [place]: The National Academies Press.2. Freddy MF, Pineda EUBANKS, Brody KHOURY, et al. Evaluation, treatment, and prevention of vitamin D deficiency: an Endocrine Society clinical practice guideline. JCEM. 2010; 96(7):1911-30. 4-Cmi-782370:24 METABOLIC PANEL, COMPREHENSIVE Comments: PATIENT WAS FASTINGPERFORMED BY: CreditCards.comMarlton Rehabilitation HospitalBamnqs8401 [facility] [id number] (03290) ALT (SGPT) 12 [iU]/L (Normal) Range: 0-32 [...] Glucose, Serum 109 mg/dL (Abnormal) Range: 65-99 2-Zdp-569476:24 CBC W/AUTO DIFF WBC Comments: PATIENT WAS FASTINGPERFORMED BY: LabCoMarlton Rehabilitation HospitalLzgnxe2284 [facility] [id number] Information: [id number] (02486) Immature Grans (Abs) 0.0 {x10E3/uL} (Normal) Range: [...] Comments: 1 month; PATIENT NOT FASTINGPERFORMED BY: [facility]6370 [facility] [id number] Information: [id number] (46019) Vitamin B12 1403 pg/mL (Abnormal) Range: 211-946 :53 CBC, PLATELETS & AUT DIFF Comments: PATIENT NOT FASTINGPERFORMED BY: LabCoMarlton Rehabilitation HospitalTqscgo9776 [facility] [id number] Information: [id number] (39997) Immature Grans (Abs) 0.0 {x10E3/uL} (Normal) Range: [...] B-12 (CYANOCOBALAMIN) Comments: PATIENT NOT FASTINGPERFORMED BY: Noveporter Ajcfkb8270 [address] Zane Prepblin [place] [id number] (76329) Vitamin B12 298 pg/mL (Normal) Range: 211-946 :53 TSH (30756) Comments: PATIENT NOT FASTINGPERFORMED BY: CliqSearch [facility] Nrspcz2293 [address] BiiCodeDublin [place] [id number] TSH 2.590 {uIU/mL} (Normal) Range: 0.450-4.500 :53 LIPID PANEL (26675) Comments: PATIENT NOT FASTINGPERFORMED BY: Noveporter Cufenh4975 [address] BiiCodeDublin [place] [id number] LDL/HDL Ratio 2.5 {ratio_units} (Normal) Range: 0.0-3.2 Comments: LDL/HDL Ratio Men Women 1/2 Avg.Risk 1.0 1.5 Av g.Risk 3.6 3.2 2X Avg.Risk 6.2 5.0 3X Avg.Risk 8.0 6.1 LDL Cholesterol Calc 116 mg/dL (Abnormal) Range: 0-99 VLDL Cholesterol Alexander 26 mg/dL (Normal) Range: 5-40 HDL Cholesterol 47 mg/dL (Normal) Comments: According to ATP-III Guidelines, HDL-C >59 mg/dL is considered anegative risk factor for CHD. Triglycerides 130 mg/dL (Normal) Range: 0-149 Cholesterol, Total 189 mg/dL (Normal) Range: 100-199 :37 HgA1C , Office (45480) HgA1C , Office 5.8 % (Normal) Range: 4.6 - 7.1 :13 Vitamin D Hydroxy (55597) Comments: PATIENT WAS FASTINGPERFORMED BY: CliqSearch [facility] Mwaabd1678 [address] BiiCodeDublin [place] [id number] Vitamin D, 25-Hydroxy 44.2 ng/mL (Normal) Range: 30.0-100.0 Comments: Vitamin D deficiency has been defined by the Bland ofMedicine and an Endocrine Society practice guideline as alevel of serum 25-OH vitamin D less than 20 ng/mL (1,2).The Endocrine Society went on to further define vitamin Dinsufficiency as a level between 21 and 29 ng/mL (2).1. IOM (Bland of Medicine). 2010. Dietary reference intakes for calcium and D. [place]: The National Academies Press.2. Freddy MF, Pineda EUBANKS, Brody KHOURY, et al. Evaluation, treatment, and prevention of vitamin D deficiency: an Endocrine Society clinical practice guideline. JCEM. 2010; 96(7):1911-30. 31-Fhd-732864:13 METABOLIC PANEL, Comments: PATIENT WAS FASTINGPERFORMED BY: LabCoMarlton Rehabilitation HospitalHmsdxl7379 [facility] [id number] Information: [id number] COMPREHENSIVE (26615) ALT (SGPT) 11 [iU]/L (Normal) Range: 0-32 [...] Glucose, Serum 92 mg/dL (Normal) Range: 65-99 20-Adq-269713:13 LIPID PANEL (96399) Comments: PATIENT WAS FASTINGPERFORMED BY: CreditCards.comMarlton Rehabilitation HospitalYqddsp7423 [facility] [id number] LDL/HDL Ratio 3.6 {ratio_units} (Abnormal) Range: 0.0-3.2 [...] Cholesterol, Total 193 mg/dL (Normal) Range: 100-199 79-Avz-97091:39 HgA1C , Office (71262) HgA1C , Office 6.2 % (Normal) Range: 4.6 - 7.1 40-Nns-134830:03 URINE TEA CULTURE-IDENTIFICATN Comments: PATIENT NOT FASTINGPERFORMED BY: AmeiboMymichigan Medical Center [facility]aw6370 [facility] [id number] Information: [id number] (45654) Antimicrobial MIHEAD (Normal) Comments: S = Susceptible; [...] Final report Culture,Comprehensive (Abnormal) :11 Urinalysis, Office (37506) UA - LEUKOCYTE ESTERASE Small (Normal) UA - NITRITE Negative (Normal) URINE UROBILINGN KOLBY TIMED Normal mg/dL (Normal) UA - PROTEIN Negative mg/dL (Normal) UA - PH 7 (Normal) UA - BLOOD Negative (Normal) UA - SPECIFIC GRAVITY 1.015 (Normal) UA - KETONES Negative mg/dL (Normal) UA - BILIRUBIN Negative (Normal) UA - GLUCOSE Negative (Normal) 37-Zrj-623152:42 Urine Culture,Comprehensive Comments: PATIENT NOT FASTINGPERFORMED BY: CloudFloorCritical access hospital [id number] Information: [facility] [id number] Antimicrobial MIHEAD (Normal) Comments: S = Susceptible; [...] Panel (14) Comments: PATIENT WAS FASTINGPERFORMED BY: gBox6370 [facility] [id number] Information: [id number] ALT (SGPT) 12 [iU]/L (Normal) Range: 0-32 [...] % (Normal) Comments: PATIENT WAS FASTINGPERFORMED BY: Contemporary Analysis [facility] [id number] :42 Range: 4.8-5.6 Comments: . Increased risk for diabetes: 5.7 - 6.4 Diabetes: >6.4 Glycemic control for adults with diabetes: <7.0 :42 Lipid Panel With LDL/HDL Comments: PATIENT WAS FASTINGPERFORMED BY: MENA36070 [facility] [id number] Ratio LDL/HDL Ratio 2.9 {ratio_units} (Normal) Range: [...] Cholesterol, Total 180 mg/dL (Normal) Range: 100-199 14-Puc-340845:22 Urine Culture,Comprehensive Comments: PATIENT NOT FASTINGPERFORMED BY: [employer] Ygjqng2299 [facility] [id number] Information: [id number] Result 1 BETAGB (Abnormal) Comments: Beta hemolytic [...] Final report (Abnormal) Culture,Comprehensive :43 Urinalysis, Office (68461) UA - LEUKOCYTE ESTERASE Small (Normal) UA [...] CREATININE RATIO Comments: PATIENT WAS FASTINGPERFORMED BY: CreditCards.comMarlton Rehabilitation HospitalUlwuhe2786 [facility] [id number] (22253) AND (59410) Microalb/Creat Ratio 5.2 {mg/g_creat} (Normal) Range: 0.0-30.0 Microalbumin, Urine 6.5 ug/mL (Normal) Range: 0.0-17.0 Creatinine, Urine 125.1 mg/dL (Normal) Range: 15.0-278.0 :43 Vitamin D Hydroxy (02282) Comments: PATIENT WAS FASTINGPERFORMED BY: [facility]6370 [facility] [id number] Vitamin D, 25-Hydroxy 56.5 ng/mL (Normal) Range: 30.0-100.0 Comments: Vitamin D deficiency has been defined by the Bland ofMedicine and an Endocrine Society practice guideline as alevel of serum 25-OH vitamin D less than 20 ng/mL (1,2).The Endocrine Society went on to further define vitamin Dinsufficiency as a level between 21 and 29 ng/mL (2).1. IOM (Bland of Medicine). 2010. Dietary reference intakes for calcium and D. [place]: The National Academies Press.2. Freddy MF, Pineda NC, Brody KHOURY, et al. Evaluation, treatment, and prevention of vitamin D deficiency: an Endocrine Society clinical practice guideline. JCEM. 2010; 96(7):1911-30. :43 CBC W/AUTO DIFF WBC Comments: PATIENT WAS FASTINGPERFORMED BY: LabCoMarlton Rehabilitation HospitalAqujlu9895 [facility] [id number] Information: [id number] (34831) Immature Grans (Abs) 0.0 {x10E3/uL} (Normal) Range: [...] PANEL, COMPREHENSIVE Comments: PATIENT WAS FASTINGPERFORMED BY: LabCoMarlton Rehabilitation HospitalTfooon2081 [facility] [id number] (06141) ALT (SGPT) 15 [iU]/L (Normal) Range: 0-32 [...] mg/dL (Normal) Range: 65-99 :43 LIPID PANEL (27601) Comments: PATIENT WAS FASTINGPERFORMED BY: [facility] Iyttdg8000 [facility] [id number] LDL/HDL Ratio 1.7 {ratio_units} (Normal) Range: 0.0-3.2 [...] Cholesterol, Total 149 mg/dL (Normal) Range: 100-199 62-Tkw-637002:55 Anticardiolip Ab, IgA/G/M, Comments: PATIENT NOT FASTINGPERFORMED BY: [facility] Apmxbz9536 [facility] [id number] BY: [facility] Lsvbpgcehb8572 [facility] [id number] BY: TG [facility] Qn AEN4981 [facility] [id number] Anticardiolipin Ab,IgA,Qn <9 {APL_U/mL} (Normal) Range: 0-11 [...] Positive: >20 - 80 High Positive: >80 19-Tuq-075122:55 Antinuclear Antibodies Comments: PATIENT NOT FASTINGPERFORMED BY: CB [facility] Jojlup2446 Carrizales RoadDublin [place] [id number] BY: [facility] [address] [id number] BY: TG [facility] Direct FVD6675 [facility] [id number] SURI Direct Negative (Normal) 15-Jqw-702684:55 Antithrombin III, Comments: PATIENT NOT FASTINGPERFORMED BY: CB [facility] Kphqao4781 Carrizales RoadDublin [place] [id number] BY: [facility] [address] [id number] BY: TG [facility] Func/Immunol WZR4295 [facility] [id number] Antithrombin Antigen 85 % (Normal) Range: 75-130 Antithrombin Activity 100 % (Normal) Range: 75-135 C-Reactive Protein, <0.3 mg/L (Normal) Comments: PATIENT NOT FASTINGPERFORMED BY: CB [facility] Pspsmv6761 Carrizales RoadDublin [place] [id number] BY: [facility] [address] [id number] BY: TG [facility] 2:55 Quant BBM3109 [facility] [id number] Range: 0.0-4.9 Factor II Activity 88 % (Normal) Comments: PATIENT NOT FASTINGPERFORMED BY: CB [facility] Pkwiqu1013 Carrizales RoadDublin [place] [id number] BY: [facility] [address] [id number] BY: TG [facility] 2:55 CJB3201 [facility] [id number] Range: 75-130 28-Okd-449118:55 Factor V Leiden Mutation Comments: PATIENT NOT FASTINGPERFORMED BY: CB [facility] Uuxadr1456 Carrizales RoadDublin [place] [id number] BY: [facility] [place] [address] [facility] [id number] BY: LabCo OMR0021 PANCHO [facility]oP[facility] [id number] Factor V Leiden FVNEG3 (Normal) Comments: Result: [...] in the workup for venous thrombosis include [id number] mutation in the factor II (prothrombin) gene,protein S and C deficiency, and antithromb in deficiencies.Anticardiolipin antibody and lupus anticoagulant analysismay be appropriate for certain patients, as well ashomocysteine levels. .Contact your local [facility] for information on how to orderadditional testing if desired. .Genetic counselors are available for health care* providers to discuss results at [phone] ([phone]). .Methodology:DNA analysis of the Factor V gene [...] Zvereff, MD, PhDS MARQUISE Gonsales, PhD . 87-Knu-772089:55 Protein C Deficiency Comments: PATIENT NOT FASTINGPERFORMED BY: LabCoMarlton Rehabilitation HospitalZfahea7907 [facility] [id number] BY: [facility] [address] [id number] BY: LabEco Marketrp Profile ZPJ1162 [facility] [id number] Protein C-Functional 134 % (Normal) Range: 74-151 Protein C Antigen 97 % (Normal) Range: 70-140 47-Uaz-314875:55 Protein Electro, Random Comments: PATIENT NOT FASTINGPERFORMED BY: [facility] Grugcy5311 [facility] [id number] BY: [facility] [address] [id number] BY: LabEco Market Urine LAV5952 [facility] [id number] Please note: SPRCS (Normal) Comments: Protein electrophoresis scan will follow via computer, mail, orcourier delivery. M-Peter, % Not Observed % (Normal) Gamma Globulin, U 18.3 % (Normal) Beta Globulin, U 24.9 % (Normal) Nqfff-7-Ytunxrij, U 17.0 % (Normal) Yrmlg-2-Ebhgmklu, U 6.3 % (Normal) Albumin, U 33.5 % (Normal) Protein,Total,Urine 5.6 mg/dL (Normal) Range: 0.0-15.0 74-Jfn-193099:55 Protein Electro.,S Comments: PATIENT NOT FASTINGPERFORMED BY: CliqSearch [facility] Kuyydm9759 [facility] [id number] BY: [facility] [address] [id number] BY: [facility] LFN4867 [facility] [id number] Please note: SPRCS (Normal) Comments: Protein electrophoresis scan will follow via computer, mail, orcourier delivery. A/G Ratio 1.5 (Normal) Range: 0.7-2.0 Globulin, Total 2.7 g/dL (Normal) Range: 2.0-4.5 M-Peter Not Observed g/dL (Normal) Gamma Globulin 1.0 g/dL (Normal) Range: 0.5-1.6 Beta Globulin 0.9 g/dL (Normal) Range: 0.6-1.3 Lwetp-7-Gqpfahjy 0.6 g/dL (Normal) Range: 0.4-1.2 Lchlt-1-Tldcykwn 0.2 g/dL (Normal) Range: 0.1-0.4 Albumin 4.1 g/dL (Normal) Range: 3.2-5.6 Protein, Total, Serum 6.8 g/dL (Normal) Range: 6.0-8.5 84-Lda-702200:55 Protein S Panel Comments: PATIENT NOT FASTINGPERFORMED BY: CB [facility] Znzyny2609 Carrizales RoadDublin [place] [id number] BY: LabCo[address] [id number] BY: LabCo[address] [id number] Protein S-Functional 100 % (Normal) Range: 60-145 Protein S, Free 112 % (Normal) Range: 56-124 Protein S, Total 120 % (Normal) Range: 58-150 58-Wcb-362651:55 Rheumatoid Arthritis Comments: PATIENT NOT FASTINGPERFORMED BY: [facility] Opjyes3329 [address] Zane Prepblin [place] [id number] BY: LabEco Market[address] [id number] BY: [facility]CoBr[facility] XTA9037 [facility] [id number] RA Latex Turbid. 6.4 {IU/mL} Range: 0.0-13.9 (Normal) 05-Nmr-65410 Sedimentation 5 mm/h (Normal) Comments: PATIENT NOT FASTINGPERFORMED BY: [facility] Tfopqx3163 [address] BiiCodeDublin [place] [id number] BY: LabCo[address] [id number] BY: [facility] 2:55 Rate-Westergren MLE9748 [facility] [id number] Range: 0-40 6-Oun-908739:10 Vitamin D Hydroxy (00167) Comments: PATIENT NOT FASTINGPERFORMED BY: CB [facility] Tqyhur9742 [address]rizales RoadDublin [place] [id number] Vitamin D, 25-Hydroxy 56.5 ng/mL (Normal) Range: 30.0-100.0 Comments: Vitamin D deficiency has been defined by the Bland ofMedicine and an Endocrine Society practice guideline as alevel of serum 25-OH vitamin D less than 20 ng/mL (1,2).The Endocrine Society went on to further define vitamin Dinsufficiency as a level between 21 and 29 ng/mL (2).1. IOM (Bland of Medicine). 2010. Dietary reference intakes for calcium and D. [place]: The National Academies Press.2. Freddy MF, Pineda EUBANKS, Brody KHOURY, et al. Evaluation, treatment, and prevention of vitamin D deficiency: an Endocrine Society clinical practice guideline. JCEM. 2010; 96(7):1911-30. 3-Tcq-992321:10 VITAMIN B-12 (CYANOCOBALAMIN) Comments: PATIENT NOT FASTINGPERFORMED BY: gBox6370 [facility] [id number] (31337) Vitamin B12 455 pg/mL (Normal) Range: 211-946 9-Zsk-451092:10 TSH (76245) Comments: PATIENT NOT FASTINGPERFORMED BY: Noveporterrp Nusfsy8785 [facility] NetworkCritical access hospital [id number] TSH 1.870 {uIU/mL} (Normal) Range: 0.450-4.500 1-Qjs-626567:10 EBV Panel (91079) Comments: PATIENT NOT FASTINGPERFORMED BY: Noveporterrp Wtagkl9062 [facility] [id number] Information: [id number] Interpretation: SPRCS (Normal) Comments: EBV Interpretation Chart [...] 43.9 Positive >43.9 :47 HgA1C , Office (27691) HgA1C , Office 5.8 % (Normal) Range: 4.6 - 7.1 12-Hzw-105548:38 Microscopic Examination Comments: PATIENT WAS FASTINGPERFORMED BY: CloudFloorCritical access hospital [id number] Bacteria Few (Normal) Mucus Threads Present (Normal) Epithelial Cells (non renal) 0-10 {/hpf} (Normal) Range: 0 - 10 RBC None seen {/hpf} (Normal) Range: 0 - 2 WBC 0-5 {/hpf} (Normal) Range: 0 - 5 63-Qrt-790378:38 MICROALBUMIN: CREATININE RATIO Comments: PATIENT WAS FASTINGPERFORMED BY: Miso MediaRuther[facility] System [id number] (69133) AND (72671) Creatinine, Urine 59.0 mg/dL (Normal) Range: 15.0-278.0 Microalb/Creat Ratio 8.3 {mg/g_creat} (Normal) Range: 0.0-30.0 Microalbumin, Urine 4.9 ug/mL (Normal) Range: 0.0-17.0 58-Eet-279595:38 URINALYSIS, W/ MICRO (63964) Comments: PATIENT WAS FASTINGPERFORMED BY: Miso MediaRutherford Regional Health System [id number] Microscopic Examination MICRON (Normal) Comments: Microscopic follows if indicated. Microscopic Examination See below: (Normal) Comments: Microscopic was indicated and was performed. Nitrite, Urine Negative (Normal) Urobilinogen,Semi-Qn 0.2 mg/dL (Normal) Range: 0.0-1.9 Bilirubin Negative (Normal) Occult Blood Negative (Normal) Ketones Negative (Normal) Glucose Negative (Normal) Protein Negative (Normal) Appearance Clear (Normal) WBC Esterase Negative (Normal) pH 7.5 (Normal) Range: 5.0-7.5 Urine-Color Yellow (Normal) Specific Kincaid 1.016 (Normal) Range: 1.005-1.030 27-Nia-559139:38 CBC WITH MANUAL DIFF Comments: PATIENT WAS FASTINGPERFORMED BY: [facility] [facility] [id number] Information: [id number] (98761) Immature Grans (Abs) 0.0 {x10E3/uL} (Normal) Range: [...] {x10E3/uL} (Normal) Range: 3.4-10.8 :38 LIPID PANEL (92782) Comments: PATIENT WAS FASTINGPERFORMED BY: MENA36070 [facility] [id number] LDL/HDL Ratio 1.9 {ratio_units} (Normal) Range: 0.0-3.2 [...] PANEL, COMPREHENSIVE Comments: PATIENT WAS FASTINGPERFORMED BY: gBox6370 [facility] [id number] (77133) ALT (SGPT) 12 [iU]/L (Normal) Range: 0-32 [...] Glucose, Serum 98 mg/dL (Normal) Range: 65-99 35-Hzh-796351:43 URINE TEA CULTURE (KOLBY Comments: PATIENT NOT FASTINGPERFORMED BY: LabCoMarlton Rehabilitation HospitalHldrga5738 [facility] [id number] Information: SRC:VALENTINA [id number] COL COUNT) (33223) Result 1 BETAGB (Abnormal) Comments: Beta hemolytic [...] (CLSI 2011) Urine Final report (Abnormal) Culture,Comprehensive 0-Cqu-025029:47 Urinalysis, Office (97407) UA - LEUKOCYTE ESTERASE Small (Normal) UA - NITRITE Negative (Normal) URINE UROBILINGN KOLBY TIMED Normal mg/dL (Normal) UA - PROTEIN 30 mg/dL (Normal) UA - PH 5 (Abnormal) UA - BLOOD Negative (Normal) UA - SPECIFIC GRAVITY 1.025 (Normal) UA - KETONES Negative mg/dL (Normal) UA - BILIRUBIN Small (Normal) UA - GLUCOSE Negative (Normal) 6-Vlp-298975:43 HgA1C , Office (71967) HgA1C , Office 5.9 % (Normal) Range: 4.6 - 7.1 3-Trl-188568:43 Blood Glucose , Office (25664) Blood Glucose , Office 137 (Normal) 8-Wmb-558506:00 URINE TEA CULTURE-IDENTIFICATN Comments: PATIENT NOT FASTINGPERFORMED BY: [facility]6[address] [facility] [id number] Information: [id number] (39006) Result 1 BETAGB (Abnormal) Comments: Beta hemolytic [...] (CLSI 2011) Urine Final report (Abnormal) Culture,Comprehensive 4-Btj-202710:04 Urinalysis, Office (81075) UA - LEUKOCYTE ESTERASE Small (Normal) UA - NITRITE Negative (Normal) URINE UROBILINGN KOLBY TIMED Normal mg/dL (Normal) UA - PROTEIN Negative mg/dL (Normal) UA - PH 6.5 (Normal) UA - BLOOD non-hemolyzed trace (Normal) UA - SPECIFIC GRAVITY 1.015 (Normal) UA - KETONES Negative mg/dL (Normal) UA - BILIRUBIN Negative (Normal) UA - GLUCOSE Negative (Normal) 80-Rdz-770910:47 LIPID PANEL (94765) Comments: PATIENT WAS FASTINGPERFORMED BY: [facility]iboMymich[facility]6[address] [facility] [id number] LDL/HDL Ratio 2.0 {ratio_units} (Normal) Range: 0.0-3.2 LDL Cholesterol Calc 88 mg/dL (Normal) Range: 0-99 VLDL Cholesterol Alexander 19 mg/dL (Normal) Range: 5-40 HDL Cholesterol 45 mg/dL (Normal) Comments: According to ATP-III Guidelines, HDL-C >59 mg/dL is considered anegative risk factor for CHD. Cholesterol, Total 152 mg/dL (Normal) Range: 100-199 Triglycerides 95 mg/dL (Normal) Range: 0-149 27-Uzg-685989:47 CBC WITH MANUAL DIFF Comments: PATIENT WAS FASTINGPERFORMED BY: [place] 9[address] [facility] [id number] Information: [id number] ORDER NO DRAW F EE (35382) Immature Grans (Abs) 0.0 {x10E3/uL} (Normal) Range: [...] 3.77-5.28 WBC 5.8 {x10E3/uL} (Normal) Range: 3.4-10.8 90-Yig-031494:47 METABOLIC PANEL, COMPREHENSIVE Comments: PATIENT WAS FASTINGPERFORMED BY: LabCoMarlton Rehabilitation HospitalLcpoys6649 [facility] [id number] (01363) ALT (SGPT) 16 [iU]/L (Normal) Range: 0-32 [...] Glucose, Serum 94 mg/dL (Normal) Range: 65-99 87-Myg-513937:13 URINE TEA CULTURE (KOLBY Comments: PATIENT NOT FASTINGPERFORMED BY: [facility] Sbwott0316 [facility] [id number] Information: SRC:UR [id number] COL COUNT) (93971) Result 1 BETAGB (Abnormal) Comments: Beta hemolytic [...] (CLSI 2011) Urine Final report (Abnormal) Culture,Comprehensive 92-Tvv-917043:11 Urinalysis, Office (04871) UA - LEUKOCYTE ESTERASE Small (Normal) UA - NITRITE Negative (Normal) URINE UROBILINGN KOLBY TIMED Normal mg/dL (Normal) UA - PROTEIN Negative mg/dL (Normal) UA - PH 7 (Normal) UA - BLOOD Non Hemolyzed Moderate (Normal) UA - SPECIFIC GRAVITY 1.015 (Normal) UA - KETONES Negative mg/dL (Normal) UA - BILIRUBIN Negative (Normal) UA - GLUCOSE Negative (Normal) 11-Fyr-527971:47 Phosphorus (96454) Comments: 2 weeks; PATIENT NOT FASTINGPERFORMED BY: [id number] Carrizales BiiCodeRutherford [facility] System [id number] Information: [id number] Phosphorus, Serum 3.7 mg/dL (Normal) Range: 2.5-4.5 77-Rfp-667627:36 URINE TEA CULTURE-IDENTIFICATN Comments: PATIENT NOT FASTINGPERFORMED BY: MENA36070 Independent Comedy NetworkCritical access hospital [id number] Information: SRC: URINE (26138) Result 1 BETAGB (Normal) Comments: Beta hemolytic [...] (CLSI 2011) Urine Final report (Normal) Culture,Comprehensive 91-Ukj-223859:02 Urinalysis, Office (75506) UA - LEUKOCYTE ESTERASE Trace (Normal) UA - NITRITE Negative (Normal) URINE UROBILINGN KOLBY TIMED Normal mg/dL (Normal) UA - PROTEIN Negative mg/dL (Normal) UA - PH 7 (Normal) UA - BLOOD Negative (Normal) UA - SPECIFIC GRAVITY 1.010 (Normal) UA - KETONES Negative mg/dL (Normal) UA - BILIRUBIN Negative (Normal) UA - GLUCOSE Negative (Normal) 36-Ngr-578539:16 Microscopic Examination Comments: PATIENT NOT FASTINGPERFORMED BY: Noveporterrp Lsibrv7852 [facility] [id number] Bacteria Few (Normal) Mucus Threads Present (Normal) Epithelial Cells (non renal) 0-10 {/hpf} (Normal) Range: 0 - 10 RBC 0-3 {/hpf} (Normal) Range: 0 - 3 WBC 6-10 {/hpf} (Abnormal) Range: 0 - 5 :45 Protein Electro, Random Urine Comments: PERFORMED BY: CloudFloorCritical access hospital [id number] M-Peter, % Not Observed % (Normal) Please note: SPRCS (Normal) Comments: Protein electrophoresis scan will follow via computer, mail, orcourier delivery. Beta Globulin, U 27.1 % (Normal) Gamma Globulin, U 31.6 % (Normal) Tvofm-5-Cmqprgxr, U 4.3 % (Normal) Inaeg-0-Ztdtaesw, U 15.2 % (Normal) Albumin, U 21.8 % (Normal) Protein,Total,Urine 5.5 mg/dL (Normal) Range: 0.0-15.0 :45 Protein Electro.,S Comments: PERFORMED BY: CloudFloorCritical access hospital [id number] Please note: SPRCS (Normal) Comments: Protein electrophoresis scan will follow via computer, mail, orcourier delivery. A/G Ratio 1.6 (Normal) Range: 0.7-2.0 Globulin, Total 2.5 g/dL (Normal) Range: 2.0-4.5 Beta Globulin 0.8 g/dL (Normal) Range: 0.6-1.3 Gamma Globulin 0.9 g/dL (Normal) Range: 0.5-1.6 M-Peter Not Observed g/dL (Normal) Enjoc-0-Eidlqicb 0.6 g/dL (Normal) Range: 0.4-1.2 Icccd-3-Tttqovrk 0.2 g/dL (Normal) Range: 0.1-0.4 Albumin 4.1 g/dL (Normal) Range: 3.2-5.6 Protein, Total, Serum 6.6 g/dL (Normal) Range: 6.0-8.5 27-Dir-309057:25 URINALYSIS, W/ MICRO Comments: PATIENT NOT FASTINGPERFORMED BY: Miso MediaDublin [place] [id number] Information: [id number] (15049) Microscopic Examination See below: (Normal) Nitrite, Urine Negative (Normal) Bilirubin Negative (Normal) Urobilinogen,Semi-Qn 0.2 mg/dL (Normal) Range: 0.0-1.9 Occult Blood Negative (Normal) Ketones Negative (Normal) Glucose Negative (Normal) Protein Negative (Normal) WBC Esterase Trace (Abnormal) Appearance Clear (Normal) Urine-Color Yellow (Normal) pH 6.5 (Normal) Range: 5.0-7.5 Specific Kincaid 1.019 (Normal) Range: 1.005-1.030 76-Bri-799510:25 URINE TEA CULTURE (KOLBY COL Comments: PATIENT NOT FASTINGPERFORMED BY: [facility]6[address] [facility] [id number] COUNT) (07821) Result 1 BETAGB (Normal) Comments: Beta hemolytic [...] (CLSI 2011) Urine Final report (Normal) Culture,Comprehensive 2-Qny-184026:13 URINE CALCIUM KOLBY TIMED Comments: PATIENT NOT FASTINGPERFORMED BY: [facility]6[address] [facility] [id number] Information: [id number], START TIME: 10-27-13 AT 9 AMEND TIME 10/28/13 AT 7 AM 24 Hour (30935) Calcium, Urine 24hr 199.5 {mg/24_hr} (Normal) Range: 100.0-300.0 Calcium, Urine 21.0 mg/dL (Normal) 45-Ran-071924:15 PARATHORMONE (79257) Comments: PERFORMED BY: [facility]Haw[facility] Pjjxan5995 [facility] [id number] PTH, Intact 20 pg/mL (Normal) Range: 15-65 99-Vev-779750:15 PHOSPHORUS (99237) Comments: PERFORMED BY: [facility]iboMymichigan [facility]6370 [facility] [id number] Phosphorus, Serum 4.6 mg/dL (Abnormal) Range: 2.5-4.5 54-Kfl-909857:15 TSH (32808) Comments: PERFORMED BY: [facility]iboMymichigan [facility] Center [facility]6[address] [facility] [id number] TSH 2.710 {uIU/mL} (Normal) Range: 0.450-4.500 50-Cnp-428693:57 FECAL OCCULT- Tubes sent home (15986) FECAL OCCULT HGB ASSAY, QUAL, 1-3 SIMULTANEOU negative (Normal) 96-Swo-152751:50 HgA1C , Office (44973) HgA1C , Office 6.1 % (Normal) Range: 4.6 - 7.1 :26 LIPID PANEL (38708) Comments: PATIENT WAS FASTINGPERFORMED BY: CreditCards.comMarlton Rehabilitation HospitalDdbwbg2728 [facility] [id number] LDL/HDL Ratio 2.1 {ratio_units} (Normal) Range: 0.0-3.2 [...] CREATININE RATIO Comments: PATIENT WAS FASTINGPERFORMED BY: [facility]iboMymichigan [facility]6[address] [facility] [id number] (78510) AND (43684) Microalb/Creat Ratio 13.1 {mg/g_creat} (Normal) Range: 0.0-30.0 Creatinine, Urine 70.1 mg/dL (Normal) Range: 15.0-278.0 Microalbumin, Urine 9.2 ug/mL (Normal) Range: 0.0-17.0 :26 METABOLIC PANEL, Comments: PATIENT WAS FASTINGPERFORMED BY: [employer] Iabrfj1417 [facility] [id number] Information: [id number] [facility] (39768) ALT (SGPT) 17 [iU]/L (Normal) Range: 0-32 [...] (Abnormal) Range: 65-99 :26 Vitamin D Hydroxy (54313) Comments: PATIENT WAS FASTINGPERFORMED BY: CreditCards.comMarlton Rehabilitation HospitalCqydmy0681 [facility] [id number] Vitamin D, 25-Hydroxy 57.3 ng/mL (Normal) Range: 30.0-100.0 Comments: Vitamin D deficiency has been defined by the Bland ofMedicine and an Endocrine Society practice guideline as alevel of serum 25-OH vitamin D less than 20 ng/mL (1,2).The Endocrine Society went on to further define vitamin Dinsufficiency as a level between 21 and 29 ng/mL (2).1. IOM (Bland of Medicine). 2010. Dietary reference intakes for calcium and D. [place]: The National Academies Press.2. Freddy MF, Pineda EUBANKS, Brody KHOURY, et al. Evaluation, treatment, and prevention of vitamin D deficiency: an Endocrine Society clinical practice guideline. JCEM. 2010; 96(7):1911-30. 8-Frq-906606:42 HgA1C , Office (68302) HgA1C , Office 5.6 % (Normal) Range: 4.6 - 7.1 :17 METABOLIC PANEL, Comments: PATIENT WAS FASTINGPERFORMED BY: LabCoMarlton Rehabilitation HospitalKakuak6762 [facility] [id number] Information: [id number] COMPREHENSIVE (65884) ALT (SGPT) 25 [iU]/L (Normal) Range: 0-32 [...] Glucose, Serum 94 mg/dL (Normal) Range: 65-99 86-Kly-763076:17 LIPID PANEL (66572) Comments: PATIENT WAS FASTINGPERFORMED BY: LabCo Mfxxyp8717 [facility] [id number] LDL/HDL Ratio 1.9 {ratio_units} (Normal) Range: 0.0-3.2 LDL Cholesterol Calc 77 mg/dL (Normal) Range: 0-99 VLDL Cholesterol Alexander 24 mg/dL (Normal) Range: 5-40 HDL Cholesterol 40 mg/dL (Normal) Comments: According to ATP-III Guidelines, HDL-C >59 mg/dL is considered anegative risk factor for CHD. Triglycerides 119 mg/dL (Normal) Range: 0-149 Cholesterol, Total 141 mg/dL (Normal) Range: 100-199 31-Bir-582472:35 BILAT SCRN DIGITAL & CAD Radiology Report [...] Bajwa M.D.May 20, 2013 at 7:25:00 AM [id number] Signed RU/RU If you are the referring physician and would like to consult with suzette maurer who provided this interpretation, please contact Julisa George at [phone]. If this radiologist is unavailable, youwillbe directed to another radiologist to assist. If you are a patien t with a question regarding this report, pleasecontactyour referring physician directly. Professional Interpretation Provided By: [employer], Phone , These documents conta in legally [...] Bajwa on 05/20/13726 Sign by: Alvaro Bajwa 3-Nxu-020653:29 VITAMIN B-12 (CYANOCOBALAMIN) Comments: PATIENT NOT FASTINGPERFORMED BY: LabCoMarlton Rehabilitation HospitalTyvybo1409 [facility] [id number] (43931) Vitamin B12 395 pg/mL (Normal) Range: 211-946 1-Gfo-408046:29 TSH (19783) Comments: PATIENT NOT FASTINGPERFORMED BY: [facility] Ztsaog9163 [facility] [id number] TSH 2.020 {uIU/mL} (Normal) Range: 0.450-4.500 3-Rnh-740147:29 CBC WITH MANUAL DIFF Comments: PATIENT NOT FASTINGPERFORMED BY: [facility] Cyjsxn4524 [facility] [id number] Information: [id number] (36943) Immature Grans (Abs) 0.0 {x10E3/uL} (Normal) Range: [...] 3.77-5.28 WBC 7.6 {x10E3/uL} (Normal) Range: 4.0-10.5 3-Cof-813518:29 EBV Panel (32236) Comments: PATIENT NOT FASTINGPERFORMED BY: [facility]Mym[facility]6370 [facility] [id number] Interpretation: SPRCS (Normal) Comments: EBV Interpretation Chart [...] <0.9 Equivocal 0.9 - 1.0 Positive >1.0 6-Puq-997473:39 HgA1C , Office (50488) HgA1C , Office 6.2 % (Normal) Range: 4.6 - 7.1 91-Xzq-468847:36 Vitamin D Hydroxy (82272) Comments: PATIENT WAS FASTINGPERFORMED BY: [facility]Mym[facility]6370 [facility] [id number] Vitamin D, 25-Hydroxy 64.3 ng/mL (Normal) Range: 30.0-100.0 Comments: Vitamin D deficiency has been defined by the Bland ofMedicine and an Endocrine Society practice guideline as alevel of serum 25-OH vitamin D less than 20 ng/mL (1,2).The Endocrine Society went on to further define vitamin Dinsufficiency as a level between 21 and 29 ng/mL (2).1. IOM (Bland of Medicine). 2010. Dietary reference intakes for calcium and D. [place]: The National Academies Press.2. Freddy MF, Pineda [place], Brody KHOURY, et al. Evaluation, treatment, and prevention of vitamin D deficiency: an Endocrine Society clinical practice guideline. JCEM. 2010; 96(7):1911-30. :36 METABOLIC PANEL, COMPREHENSIVE Comments: PATIENT WAS FASTINGPERFORMED BY: CloudFloorCritical access hospital [id number] (57275) ALT (SGPT) 16 [iU]/L (Normal) Range: 0-32 [...] mg/dL (Normal) Range: 65-99 :36 LIPID PANEL (18501) Comments: PATIENT WAS FASTINGPERFORMED BY: [place] [id number] LDL/HDL Ratio 2.3 {ratio_units} (Normal) Range: 0.0-3.2 LDL Cholesterol Calc 86 mg/dL (Normal) Range: 0-99 VLDL Cholesterol Alexander 28 mg/dL (Normal) Range: 5-40 HDL Cholesterol 38 mg/dL (Abnormal) Comments: According to ATP-III Guidelines, HDL-C >59 mg/dL is considered anegative risk factor for CHD. Triglycerides 140 mg/dL (Normal) Range: 0-149 Cholesterol, Total 152 mg/dL (Normal) Range: 100-199 6-Nkx-077382:14 URINE TEA CULTURE-IDENTIFICATN Comments: PATIENT NOT FASTINGPERFORMED BY: [place] [address]270 [facility] [id number] Information: [id number] (44379) Result 1 MUG (Normal) Comments: Mixed urogenital flora8,000 Colonies/mL Urine Culture,Comprehensive Final report (Normal) 02-Oct-20129:47 Urinalysis, Office (63407) UA - BILIRUBIN Negative (Normal) UA - BLOOD Negative (Normal) UA - GLUCOSE Negative (Normal) UA - KETONES Negative mg/dL (Normal) UA - LEUKOCYTE ESTERASE Small (Normal) UA - NITRITE Negative (Normal) UA - PH 7.0 (Normal) UA - PROTEIN Trace mg/dL (Normal) UA - SPECIFIC GRAVITY 1.020 (Normal) URINE UROBILINGN KOLBY TIMED Normal mg/dL (Normal) Comments: 1.0 E.U./dL 78-Dhd-749335:49 URINE TEA CULTURE-IDENTIFICATN Comments: PATIENT NOT FASTINGPERFORMED BY: [facility]6[address] [facility] [id number] Information: [id number] (01970) Result 2 ECV (Normal) Comments: Escherichia coli, [...] 1,000 Colonies/mL (Normal) Urine Final report (Normal) Culture,[facility] 01-Wpu-579698:47 Urinalysis, Office (92893) UA - BILIRUBIN Negative (Normal) UA - BLOOD Hemolyzed Moderate (Normal) UA - GLUCOSE Negative (Normal) UA - KETONES Negative mg/dL (Normal) UA - LEUKOCYTE ESTERASE Small (Normal) UA - NITRITE Negative (Normal) UA - PH 7.0 (Normal) UA - PROTEIN Negative mg/dL (Normal) UA - SPECIFIC GRAVITY 1.015 (Normal) URINE UROBILINGN KOLBY TIMED Normal mg/dL (Normal) 67-Rao-525420:07 URINE TEA CULTURE-IDENTIFICATN Comments: PATIENT NOT FASTINGPERFORMED BY: [facility] Fdvaii7260 [facility] [id number] Information: [id number] (09443) Result 2 ECV (Normal) Comments: Escherichia coli, [...] 900 Colonies/mLSTRAIN#1 (Normal) Urine Final report (Normal) Culture,[facility] 87-Ypp-021002:56 Urinalysis, Office (21378) UA - BILIRUBIN Small (Normal) UA - [...] CREATININE RATIO Comments: PATIENT WAS FASTINGPERFORMED BY: MENA36070 Independent Comedy NetworkCritical access hospital [id number] (59763) AND (04308) Microalb/Creat Ratio 5.9 {mg/g_creat} (Normal) Range: 0.0-30.0 Microalbumin, Urine 5.6 ug/mL (Normal) Range: 0.0-17.0 Creatinine, Urine 95.1 mg/dL (Normal) Range: 15.0-278.0 :34 CBC WITH MANUAL DIFF Comments: PATIENT WAS FASTINGPERFORMED BY: gBox6370 Independent Comedy NetworkCritical access hospital [id number] Information: [id number] (30136) Immature Grans (Abs) 0.0 {x10E3/uL} (Normal) Range: [...] (Normal) Range: 4.0-10.5 :34 Vitamin D Hydroxy (03685) Comments: PATIENT WAS FASTINGPERFORMED BY: Wipebook70 Carrizales [facility] [id number] Vitamin D, 25-Hydroxy 70.7 ng/mL (Normal) Range: 30.0-100.0 Comments: Vitamin D deficiency has been defined by the Bland ofMedicine and an Endocrine Society practice guideline as alevel of serum 25-OH vitamin D less than 20 ng/mL (1,2).The Endocrine Society went on to further define vitamin Dinsufficiency as a level between 21 and 29 ng/mL (2).1. IOM (Bland of Medicine). 2010. Dietary reference intakes for calcium and D. [place]: The National Academies Press.2. Freddy MF, Pineda [place], Brody KHOURY, et al. Evaluation, treatment, and prevention of vitamin D deficiency: an Endocrine Society clinical practice guideline. JCEM. 2010; 96(7):1911-30. :34 LIPID PANEL (75147) Comments: PATIENT WAS FASTINGPERFORMED BY: LabCoAcoma-Canoncito-Laguna Service UnitCuucja4820 [facility] [id number] LDL/HDL Ratio 1.5 {ratio_units} (Normal) Range: 0.0-3.2 [...] PANEL, COMPREHENSIVE Comments: PATIENT WAS FASTINGPERFORMED BY: [id number] Independent Comedy NetworkCritical access hospital [id number] (82096) ALT (SGPT) 19 [iU]/L (Normal) Range: 0-32 [...] Glucose, Serum 95 mg/dL (Normal) Range: 65-99 53-Wre-960590:25 URINE TEA CULTURE-KOLBY COL Comments: PATIENT NOT FASTINGPERFORMED BY: Noveporter Nfudoo3741 Independent Comedy NetworkCritical access hospital [id number] Information: SRC:UR [id number] COUNT (88950) Result 1 ECV (Normal) Comments: Escherichia coli, identified by an automated biochemical system.600 Colonies/mL S = Susceptible; I = Intermediate; R = Resistant P = Positive; N = Negative DC CS are expressed in micrograms per mL Antibiotic RSLT#1 RSLT#2 RSLT#3 RSLT#4Amoxicillin/Clavulanic Acid IAmpicillin RCefazolin SCef epime SCeftriaxone SCefuroxime SCephalothin RCiprofloxacin SESBL NErtapenem SGentamicin RImipenem SLevofloxacin SNitrofurantoin SPiperacillin RTetracycline RTobramycin ITrimethoprim/Sulfa R Urine Final report (Normal) Culture,Comprehensiv e 08-Hcj-74055:42 Urinalysis, Office (31823) UA - BILIRUBIN Negative (Normal) UA - BLOOD Negative (Normal) UA - GLUCOSE Negative (Normal) UA - KETONES Negative mg/dL (Normal) UA - LEUKOCYTE ESTERASE Trace (Normal) UA - NITRITE Negative (Normal) UA - PH 7.0 (Normal) UA - PROTEIN Negative mg/dL (Normal) UA - SPECIFIC GRAVITY 1.010 (Normal) URINE UROBILINGN KOLBY TIMED Normal mg/dL (Normal) 6-Xxa-515983:52 Hemoglobin Glyclated (HGB A1C) Comments: PATIENT NOT FASTINGPERFORMED BY: gBox6370 [facility] [id number] (62999) Hemoglobin A1c 5.6 % (Normal) Range: 4.8-5.6 Comments: . Increased risk for diabetes: 5.7 - 6.4 Diabetes: >6.4 Glycemic control for adults with diabetes: <7.0 4-Iru-669557:52 EBV Panel (56557) Comments: PATIENT NOT FASTINGPERFORMED BY: [employer] SoftwareCoPlura ProcessingTlhlmr1762 [facility] [id number] Interpretation: SPRCS (Normal) Comments: EBV Interpretation Chart [...] <0.9 Equivocal 0.9 - 1.0 Positive >1.0 7-Axw-583237:52 CBC WITH MANUAL DIFF Comments: PATIENT NOT FASTINGPERFORMED BY: LabCo Osflxc6788 [facility] [id number] Information: [id number] (19168) Immature Grans (Abs) 0.0 {x10E3/uL} (Normal) Range: [...] 3.77-5.28 WBC 6.4 {x10E3/uL} (Normal) Range: 4.0-10.5 5-Uck-905008:52 VITAMIN B-12 (CYANOCOBALAMIN) Comments: PATIENT NOT FASTINGPERFORMED BY: [email or web address] Oavqar4620 [facility] [id number] (33248) Vitamin B12 373 pg/mL (Normal) Range: 211-946 6-Kjn-732398:22 URINE TEA CULTURE-KOLBY COL Comments: PATIENT NOT FASTINGPERFORMED BY: [employer] KneoWorld [facility] [id number] Information: SRC: URINE COUNT ([id number]) Result 1 ECV (Normal) Comments: Escherichia coli, [...] R Urine Final report (Normal) Culture,Comprehensiv e 8-Fnd-154718:11 Urinalysis, Office (17276) UA - BILIRUBIN Negative (Normal) UA - BLOOD Negative (Normal) UA - GLUCOSE Negative (Normal) UA - KETONES Negative mg/dL (Normal) UA - LEUKOCYTE ESTERASE Small (Normal) UA - NITRITE Negative (Normal) UA - PH 7.0 (Normal) UA - PROTEIN Negative mg/dL (Normal) UA - SPECIFIC GRAVITY 1.015 (Normal) URINE UROBILINGN KOLBY TIMED Normal mg/dL (Normal) [id number] BILAT JOSE DIGITAL & CAD Radiology Report [...] delay biopsy of a clinically suspiciousabnormality. Signed:Marcelino Dixon M.D.March 08, 2012 at 12:50:06 PM EDTElectronically Signed MV/MV Professional Interpretation Provided By: [facility], , To consult with a radiologist regarding this report, please call our [id number] line @ Dictated on 03/08/12 1212 by Abdiel PETERS MDcribed on 03/08/12 1535 by ITS IMPORTSign by MARCELINO PETERS MD on 03/08/12 1536 Sign by: __ MARCELINO PETERS MD 28-May-20129:39 METABOLIC PANEL, Comments: PATIENT WAS FASTINGPERFORMED BY: LabCoMarlton Rehabilitation HospitalBqwauy2356 [facility] [id number] Information: [id number] COMPREHENSIVE (97510) ALT (SGPT) 18 [iU]/L (Normal) Range: 0-40 [...] mg/dL (Abnormal) Range: 65-99 28-May-20129:39 LIPID PANEL (18522) Comments: PATIENT WAS FASTINGPERFORMED BY: LabCoMarlton Rehabilitation HospitalXilhhi1679 [facility] [id number] LDL/HDL Ratio 2.2 {ratio_units} (Normal) Range: 0.0-3.2 [...] 100 - 199 :39 Vitamin D Hydroxy (13339) Comments: PATIENT WAS FASTINGPERFORMED BY: LendingStandard Kdaiil7806 [address]riz[address] RoadDublin [place] [id number] Vitamin D, 25-Hydroxy 63.5 ng/mL (Normal) Range: 30.0-100.0 Comments: Vitamin D deficiency has been defined by the Bland ofMer[facility] Health Clermont Hospitalcine and an Endocrine Society practice guideline as alevel of serum 25-OH vitamin D less than 20 ng/mL (1,2).The Endocrine Society went on to further define vitamin Dinsufficiency as a level between 21 and 29 ng/mL (2).1. IOM (Bland of Medicine). 2010. Dietary reference intakes for calcium and D. [place]: The National Academies Press.2. Freddy MF, Pineda EUBANKS, Brody KHOURY, et al. Evaluation, treatment, and prevention of vitamin D deficiency: an Endocrine Society clinical practice guideline. JCEM. 2010; 96(7):1911-30. :39 PHOSPHORUS (86606) Comments: PATIENT WAS FASTINGPERFORMED BY: [facility] Acsdzx75[address] RoadDublin [place] [id number] Phosphorus, Serum 4.1 mg/dL (Normal) Range: 2.5-4.5 :39 PARATHORMONE (09562) Comments: PATIENT WAS FASTINGPERFORMED BY: [facility] Gahncq7[address] RoadDublin [place] [id number] PTH, Intact 32 pg/mL (Normal) Range: 15-65 :39 TSH (70562) Comments: PATIENT WAS FASTINGPERFORMED BY: [facility]6370 [address]rizalesSt[address] [facility] [id number] TSH 3.330 {uIU/mL} (Normal) Range: 0.450-4.500 85-Aai-322518:01 DEXA BONE DENSITY STUDY () Radiology Report [...] radiologist regarding this report, please call our [id number] line @ Dictated on 10/12/11 1004 by Ni BERG,Oscar rodriguezribed on 10/12/11 1101 by ITS IMPORTSign by Ni BERG,Arjun on 10/12/11 1102 Sign by: Ni BERG,Arjun 55-Pyt-170297:12 METABOLIC PANEL, Comments: PATIENT WAS FASTINGPERFORMED BY: [facility]6370 [facility] [id number] Information: [id number] COMPREHENSIVE (15201) ALT (SGPT) 15 [iU]/L (Normal) Range: 0-40 [...] Glucose, Serum 92 mg/dL (Normal) Range: 65-99 56-Oxq-807354:12 Vitamin D Hydroxy (73554) Comments: PATIENT WAS FASTINGPERFORMED BY: gBox6370 [facility] [id number] Vitamin D, 25-Hydroxy 70.5 ng/mL (Normal) Range: 30.0-100.0 Comments: Vitamin D deficiency has been defined by the Bland ofMedicine and an Endocrine Society practice guideline as alevel of serum 25-OH vitamin D less than 20 ng/mL (1,2).The Endocrine Society went on to further define vitamin Dinsufficiency as a level between 21 and 29 ng/mL (2).1. IOM (Bland of Medicine). 2010. Dietary reference intakes for calcium and D. [place]: The National Academies Press.2. Freddy MF, Pineda [place], Brody KHOURY, et al. Evaluation, treatment, and prevention of vitamin D deficiency: an Endocrine Society clinical practice guideline. JCEM. 2010; 96(7):1911-30. 65-Vrp-973518:12 LIPID PANEL (17321) Comments: PATIENT WAS FASTINGPERFORMED BY: Noveporter Aydunm9648 [facility] [id number] LDL/HDL Ratio 2.1 {ratio_units} (Normal) Range: 0.0-3.2 LDL Cholesterol Calc 103 mg/dL (Abnormal) Range: 0-99 VLDL Cholesterol Alexander 19 mg/dL (Normal) Range: 5-40 HDL Cholesterol 50 mg/dL (Normal) Comments: According to ATP-III Guidelines, HDL-C >59 mg/dL is considered anegative risk factor for CHD. Triglycerides 97 mg/dL (Normal) Range: 0-149 Cholesterol, Total 172 mg/dL (Normal) Range: 100-199 87-Rkf-297317:56 UNILAT LT DIAG DIGITAL & CAD Radiology [...] 02/17/11 1134 Sign by: Arjun Weathers MD 96-Nda-78576:59 BILAT SCRN DIGITAL & CAD Radiology Report [...] 02/16/11 1026 Sign by: Arjun Weathers MD 04-Nce-011493:01 METABOLIC PANEL, Comments: PATIENT WAS FASTINGPERFORMED BY: LabCoMarlton Rehabilitation HospitalZkymhg4013 [facility] [id number] Information: [id number] COMPREHENSIVE (68851) ALT (SGPT) 20 [iU]/L (Normal) Range: 0-40 [...] Glucose, Serum 99 mg/dL (Normal) Range: 65-99 90-Zyn-122824:01 LIPID PANEL (24878) Comments: PATIENT WAS FASTINGPERFORMED BY: [facility]FloorCritical access hospital [id number] LDL/HDL Ratio 2.1 {ratio_units} (Normal) Range: 0.0-3.2 LDL Cholesterol Calc 91 mg/dL (Normal) Range: 0-99 VLDL Cholesterol Alexander 23 mg/dL (Normal) Range: 5-40 HDL Cholesterol 44 mg/dL (Normal) Comments: According to ATP-III Guidelines, HDL-C >59 mg/dL is considered anegative risk factor for CHD. Triglycerides 114 mg/dL (Normal) Range: 0-149 Cholesterol, Total 158 mg/dL (Normal) Range: 100-199 56-Zso-822576:01 Vitamin D Hydroxy (62260) Comments: PATIENT WAS FASTINGPERFORMED BY: gBox[address] [facility] [id number] Vitamin D, 25-Hydroxy 39.2 ng/mL (Normal) Range: 32.0-100.0 Comments: Recent studies consider the lower limit of 32.0 ng/mL to be athreshold for optimal health.Harman GALVAN. J Nutr. 2004;135(2):317-22. 19-Xul-999255:59 URINE TEA CULTURE-KOLBY COL Comments: PATIENT NOT FASTINGPERFORMED BY: [id number] [facility] [id number] Information: SRC:UR [id number] COUNT (76987) Result 1 MUG (Normal) Comments: Mixed urogenital [id number] Colonies/mL Urine Culture,Comprehensive Final report (Normal) 47-Ccr-079154:54 Urinalysis, Office (95300) UA - BILIRUBIN Negative (Normal) UA - BLOOD Negative (Normal) UA - GLUCOSE Negative (Normal) UA - KETONES Negative mg/dL (Normal) UA - LEUKOCYTE ESTERASE Small (Normal) UA - NITRITE Negative (Normal) UA - PH 6.0 (Normal) UA - PROTEIN Negative mg/dL (Normal) UA - SPECIFIC GRAVITY 1.005 (Normal) URINE UROBILINGN KOLBY TIMED Normal mg/dL (Normal) 70-Hlz-659622:21 URINE TEA CULTURE (KOLBY Comments: PATIENT NOT FASTINGPERFORMED BY: [id number] [facility] [id number] Information: SRC:UR [id number] COL COUNT) (74258) Result 1 BETAGB (Normal) Comments: Beta hemolytic [...] Disease, February,.) Urine Final report (Normal) Culture,Comprehensive 29-Sni-91646:30 Urinalysis, Office (07285) UA - BILIRUBIN Negative (Normal) UA - BLOOD Hemolyzed Trace (Normal) UA - GLUCOSE Negative (Normal) UA - KETONES Negative mg/dL (Normal) UA - LEUKOCYTE ESTERASE Moderate (Normal) UA - NITRITE Negative (Normal) UA - PH 7.0 (Normal) UA - PROTEIN Negative mg/dL (Normal) UA - SPECIFIC GRAVITY 1.010 (Normal) URINE UROBILINGN KOLBY TIMED Normal mg/dL (Normal) 91-Dra-951583:26 Microscopic Examination Comments: PATIENT WAS FASTINGPERFORMED BY: gBox6370 [facility] [id number] Bacteria None seen (Normal) Epithelial Cells (non renal) 0-10 {/hpf} (Normal) Range: 0 - 10 Mucus Threads Present (Normal) RBC 4-10 {/hpf} (Abnormal) Range: 0 - 3 WBC 11-30 {/hpf} (Abnormal) Range: 0 - 5 :26 CBC WITH MANUAL DIFF Comments: PATIENT WAS FASTINGPERFORMED BY: CreditCards.comMarlton Rehabilitation HospitalNhirof2200 [facility] [id number] Information: [id number] (70393) Baso (Absolute) 0.0 {x10E3/uL} (Normal) Range: 0.0-0.2 [...] 11.7-15.0 WBC 5.2 {x10E3/uL} (Normal) Range: 4.0-10.5 61-Vuw-319411:26 URINALYSIS, W/ MICRO (90239) Comments: PATIENT WAS FASTINGPERFORMED BY: CreditCards.comMarlton Rehabilitation HospitalMhyaup7512 [facility] [id number] Bilirubin Negative (Normal) Ketones Negative (Normal) Microscopic Examination See below: (Normal) Nitrite, Urine Negative (Normal) Occult Blood 1+ (Abnormal) Urobilinogen,Semi-Qn 0.2 mg/dL (Normal) Range: 0.0-1.9 Appearance Clear (Normal) Glucose Negative (Normal) pH 6.5 (Normal) Range: 5.0-7.5 Protein Trace (Normal) Specific Kincaid 1.024 (Normal) Range: 1.005-1.030 Urine-Color Yellow (Normal) WBC Esterase 2+ (Abnormal) 85-Uaa-060502:26 TSH (16030) Comments: PATIENT WAS FASTINGPERFORMED BY: [facility] [id number] TSH 2.590 {uIU/mL} (Normal) Range: 0.450-4.500 53-Evi-412780:26 METABOLIC PANEL, COMPREHENSIVE Comments: PATIENT WAS FASTINGPERFORMED BY: [id number] [facility] [id number] (41878) A/G Ratio 2.0 (Normal) Range: 1.1-2.5 Albumin, [...] Glucose, Serum 98 mg/dL (Normal) Range: 65-99 65-Bmu-935188:26 Vitamin D Hydroxy (28073) Comments: PATIENT WAS FASTINGPERFORMED BY: gBox6370 [facility] [id number] Vitamin D, 25-Hydroxy 57.0 ng/mL (Normal) Range: 32.0-100.0 Comments: Recent studies consider the lower limit of 32.0 ng/mL to be athreshold for optimal health.Harman GALVAN. J Nutr. 2004;135(2):317-22. 28-Vtd-770822:26 LIPID PANEL (58032) Comments: PATIENT WAS FASTINGPERFORMED BY: gBox6370 [facility] [id number] Cholesterol, Total 145 mg/dL (Normal) Range: 100-199 HDL Cholesterol 45 mg/dL (Normal) Comments: According to ATP-III Guidelines, HDL-C >59 mg/dL is considered anegative risk factor for CHD. LDL Cholesterol Calc 81 mg/dL (Normal) Range: 0-99 LDL/HDL Ratio 1.8 {ratio_units} (Normal) Range: 0.0-3.2 Triglycerides 93 mg/dL (Normal) Range: 0-149 VLDL Cholesterol Alexander 19 mg/dL (Normal) Range: 40 :32 LIPID PANEL (25233) Comments: PATIENT WAS FASTINGPERFORMED BY: [id number] [facility] [id number] Cholesterol, Total 168 mg/dL (Normal) Range: 100-199 HDL Cholesterol 43 mg/dL (Normal) Comments: According to ATP-III Guidelines, HDL-C >59 mg/dL is considered anegative risk factor for CHD. LDL Cholesterol Calc 110 mg/dL (Abnormal) Range: 0-99 LDL/HDL Ratio 2.6 {ratio_units} (Normal) Range: 0.0-3.2 Triglycerides 76 mg/dL (Normal) Range: 0-149 VLDL Cholesterol Alexander 15 mg/dL (Normal) Range: 40 28-Uav-677072:32 METABOLIC PANEL, Comments: PATIENT WAS FASTINGPERFORMED BY: veriCARlin6370 [facility] [id number] Information: [id number] COMPREHENSIVE (06803) A/G Ratio 1.8 (Normal) Range: 1.1-2.5 Alkaline [...] Glucose, Serum 93 mg/dL (Normal) Range: 65-99 95-Txv-849238:32 Vitamin D Hydroxy (59711) Comments: PATIENT WAS FASTINGPERFORMED BY: gBox6370 [facility] Orthodontic TechnologiesRutherford Regional [facility] System [id number] Vitamin D, 25-Hydroxy 39.3 ng/mL (Normal) Range: 32.0-100.0 Comments: Recent studies consider the lower limit of 32.0 ng/mL to be athreshold for optimal health.Harman GALVAN. J Nutr. 2004;135(2):317-22. :20 Glucose (2 Spec) Comments: PATIENT WAS FASTINGPERFORMED BY: Noveporter Ykevmy8408 [facility]strate Orthodontic TechnologiesRutherford Regional Health System [id number] Information: 75G DRAWN @ 1107AM Tolerance, S Glucose, 2 hour 92 mg/dL (Normal) Range: 65-139 Glucose, Fasting 97 mg/dL (Normal) Range: 65-99 :44 Vitamin D Hydroxy (22921) Comments: PATIENT WAS FASTINGPERFORMED BY: Noveporter Vdjwjg3503 [facility] Orthodontic TechnologiesRutherford Regional Health System [id number] Vitamin D, 25-Hydroxy 38.1 ng/mL (Normal) Range: 32.0-100.0 Comments: Recent studies consider the lower limit of 32.0 ng/mL to be athreshold for optimal health.Harman GALVAN. J Nutr. 2004;135(2):317-22. :44 CBC WITH MANUAL DIFF Comments: PATIENT WAS FASTINGPERFORMED BY: CreditCards.comMarlton Rehabilitation HospitalBhcopy5914 [facility] [id number] Information: [id number] (77344) Baso (Absolute) 0.1 {x10E3/uL} (Normal) Range: 0.0-0.2 [...] PANEL, COMPREHENSIVE Comments: PATIENT WAS FASTINGPERFORMED BY: LabMym[facility]6370 [facility] [id number] (99051) ALT (SGPT) 24 [iU]/L (Normal) Range: 0-40 [...] (Abnormal) Range: 65-99 :44 HEPATIC FUNCTION PANEL (85681) Comments: PATIENT WAS FASTINGPERFORMED BY: LabCoMarlton Rehabilitation HospitalTtembm6460 [facility] [id number] Bilirubin, Direct 0.14 mg/dL (Normal) Range: 0.00-0.40 :44 LIPID PANEL (95148) Comments: PATIENT WAS FASTINGPERFORMED BY: KAILA LabCo Dnmwxz6748 [facility] [id number] LDL/HDL Ratio 2.3 {ratio_units} (Normal) Range: 0.0-3.2 HDL Cholesterol 45 mg/dL (Normal) Comments: According to ATP-III Guidelines, HDL-C >59 mg/dL is considered anegative risk factor for CHD. LDL Cholesterol Calc 104 mg/dL (Abnormal) Range: 0-99 Triglycerides 105 mg/dL (Normal) Range: 0-149 VLDL Cholesterol Alexander 21 mg/dL (Normal) Range: 5-40 Cholesterol, Total 170 mg/dL (Normal) Range: 100-199 91-Kio-245476:45 BILAT SCRN DIGITAL & CAD Radiology Report See Note (Normal) Comments: Exam Number: [id number] DIGITAL BILATERAL MAMMOGRAM Digital oblique and craniocaudal [...] mammograms werealso examined with computer-aided detection software ([employer], [employer] Reported By: ARJUN WEATHERS 15-Tub-590983:42 DEXA BONE DENSITY STUDY () Radiology Report See Note (Normal) Comments: Exam Number: [id number] DEXA BONE DENSITY STUDY A dexa scan [...] -9.8%. Treatment isadvised. Reported By: ARJUN WEATHERS 6-Vmz-124529:04 CTA ABDOMEN W/WO CONTRAST Radiology Report See Note (Normal) Comments: Exam Number: [id number] CT ANGIOGRAM ABDOMEN WITH CONTRAST HISTORY Uncontrolled [...] andexcreted contrast normally. Reported By: Real Monk 76-Lbt-21696:33 Vitamin D Hydroxy (67362) Comments: PATIENT WAS FASTINGPERFORMED BY: KAILA LabCoMarlton Rehabilitation HospitalLvzirk4077 [facility] [id number] Vitamin D, 25-Hydroxy 35.2 ng/mL (Normal) Range: 32.0-100.0 Comments: Recent studies consider the lower limit of 32.0 ng/mL to be athreshold for optimal health.Harman GALVAN. J Nutr. 2004;135(2):317-22. 97-Gvr-14921:33 METABOLIC PANEL, Comments: PATIENT WAS FASTINGPERFORMED BY: KAILA [facility] Wjnvxo8423 [facility] [id number] Information: [id number] COMPREHENSIVE (77267) ALT (SGPT) 23 [iU]/L (Normal) Range: 0-40 [...] mg/dL (Abnormal) Range: 65-99 :33 LIPID PANEL (72786) Comments: PATIENT WAS FASTINGPERFORMED BY: LendingStandard Jkvvzo8596 [facility] [id number] Cholesterol, Total 180 mg/dL (Normal) Range: 100-199 [...] Panel (14) Comments: PATIENT WAS FASTINGPERFORMED BY: LendingStandard Fmzsut4999 [facility] [id number] A/G Ratio 1.6 (Normal) Range: 1.1-2.5 Albumin, [...] With LDL/HDL Comments: PATIENT WAS FASTINGPERFORMED BY: [id number] [facility] NetworkCritical access hospital [id number] Ratio Cholesterol, Total 156 mg/dL (Normal) Range: [...] ng/mL (Normal) Comments: PATIENT WAS FASTINGPERFORMED BY: LendingStandard Drynpr1844 Orchestr[facility] Orthodontic TechnologiesRutherford Regional Health System [id number] :29 Range: 32.0-100.0 Comments: Recent studies consider the lower limit of 32.0 ng/mL to be athreshold for optimal health.Harman GALVAN. J Nutr. 2004;135(2):317-22. D-DIMER QUANT <200 ng/mL (Normal) Comments: NORMAL D-Dimer level indicates no DVT or PE. 0:05 TROPONIN-I < 0.04 ng/mL Comments: TROPONIN-I EXPECTED VALUES < 0.50 NEGATIVE 0.50 - 1.49 INDETERMINANT > OR = 1.50 SUGGEST DC 0:05 (Normal) VIT D,25 23809 16.5 ng/mL Range: 32.0-100.0 0:05 (Abnormal) Comments: Recent studies consider the lower limit of 32.0 ng/mL to dulce maria threshold for optimal health.Harman GALVAN. J Nutr. 2004;135(2):317- 22.Performed At: [address] [id number] VITAMIN B12 403 pg/mL (Normal) Range: 211-911 0:05 34-Owt-864843:38 Microscopic Examination Comments: PATIENT WAS FASTINGPERFORMED BY: Noveporter Zvqnrr6486 [facility] [id number] Bacteria Few (Normal) Epithelial Cells (non renal) 0-10 {/hpf} (Normal) Range: 0 - 10 Mucus Threads Present (Normal) RBC 0-3 {/hpf} (Normal) Range: 0 - 3 WBC 6-10 {/hpf} (Abnormal) Range: 0 - 5 92-Ycl-265206:38 URINALYSIS W/O MICRO (78766) Comments: PATIENT WAS FASTINGPERFORMED BY: Noveporter Rbjdmi[address] [place] [address] [id number] Appearance Clear (Normal) Bilirubin Negative (Normal) Glucose Negative (Normal) Ketones Negative (Normal) Microscopic Examination See below: (Normal) Nitrite, Urine Negative (Normal) Occult Blood Negative (Normal) pH 6.0 (Normal) Range: 5.0-7.5 Protein Trace (Normal) Specific Kincaid 1.022 (Normal) Range: 1.005-1.030 Urine-Color Yellow (Normal) Urobilinogen,Semi-Qn 0.2 mg/dL (Normal) Range: 0.0-1.9 WBC Esterase 1+ (Abnormal) :38 TSH (61376) Comments: PATIENT WAS FASTINGPERFORMED BY: CreditCards.com[address] [id number] TSH 2.313 {uIU/mL} (Normal) Range: 0.450-4.500 :38 CBC WITH MANUAL DIFF (72201) Comments: PATIENT WAS FASTINGClinical Information: ADD DRAW FEE [id number] ADD [id number] PERFORMED BY: LabCoMarlton Rehabilitation HospitalDgqoak5103 [facility] [id number] Baso (Absolute) 0.0 {x10E3/uL} (Normal) Range: 0.0-0.2 [...] 11.7-15.0 WBC 8.9 {x10E3/uL} (Normal) Range: 4.0-10.5 95-Dhu-733543:38 HEPATIC FUNCTION PANEL Comments: PATIENT WAS FASTINGPERFORMED BY: LabCoMarlton Rehabilitation HospitalMomavn6568 [facility] [id number] (20983) Albumin, Serum 4.4 g/dL (Normal) Range: 3.5-4.8 Alkaline Phosphatase, S 85 [iU]/L (Normal) Range: 25-165 ALT (SGPT) 13 [iU]/L (Normal) Range: 0-40 AST (SGOT) 15 [iU]/L (Normal) Range: 0-40 Bilirubin, Direct 0.12 mg/dL (Normal) Range: 0.00-0.40 Bilirubin, Total 0.4 mg/dL (Normal) Range: 0.1-1.2 Protein, Total, Serum 6.7 g/dL (Normal) Range: 6.0-8.5 06-Xtg-175034:38 LIPID PANEL (51329) Comments: PATIENT WAS FASTINGPERFORMED BY: LabMymich[facility] Center Saginaw6370 [facility] [id number] Cholesterol, Total 161 mg/dL (Normal) Range: 100-199 [...] Report See Note (Normal) Comments: Exam Number: [id number] BILATERAL SCREENING DIGITAL MAMMOGRAM CLINICAL INFORMATIONScreening. Bilateral [...] he mammogramswere also examined with computer-aided detection software([employer].). Reported By: DRE BEVERLY M.D. 19-Aos-738023:47 KNEE,1 OR 2 VIEWS Radiology Report See Note (Normal) Comments: Exam Number: [id number] LEFT KNEE - 4 VIEWS CLINICAL INFORMATIONOsteoarthritis. [...] left knee. Reported By: DRE BEVERLY M.D. 06-Oce-586430:23 URINE TEA CULTURE (KOLBY COL Comments: PATIENT NOT FASTINGClinical Information: SRC:UR ADD [id number] PERFORMED BY: [id number] [place] [id number] COUNT) (58655) Result 1 NG36 (Normal) Comments: No growth in 36 - 48 hours. Urine Culture,Comprehensive Final report (Normal) 92-Ebp-875382:51 Urinalysis, Office (20647) UA - BILIRUBIN Negative (Normal) UA - BLOOD Non Hemolyzed Trace (Normal) UA - GLUCOSE Negative (Normal) UA - KETONES Negative mg/dL (Normal) UA - LEUKOCYTE ESTERASE Trace (Normal) UA - NITRITE Negative (Normal) UA - PH 6.0 (Normal) UA - PROTEIN Negative mg/dL (Normal) UA - SPECIFIC GRAVITY 1.015 (Normal) URINE UROBILINGN KOLBY TIMED Normal mg/dL (Normal) 44-Fff-78218:49 CBC With Differential/Platelet Comments: PATIENT WAS FASTINGPERFORMED BY: [id number] [employer] Comedy NetworkSmashFly [place] [id number] Baso (Absolute) 0.0 {x10E3/uL} (Normal) Range: 0.0-0.2 [...] Panel (14) Comments: PATIENT WAS FASTINGPERFORMED BY: LabCoMarlton Rehabilitation HospitalGthcgp5116 [facility] [id number] A/G Ratio 1.8 (Normal) Range: 1.1-2.5 Albumin, [...] Serum 99 mg/dL (Normal) Range: 65-99 If -Kenyan >60 mL/min (Normal) Range: 60-128 Comments: Note: [...] With LDL/HDL Comments: PATIENT WAS FASTINGPERFORMED BY: CloudFloorCritical access hospital [id number] Ratio Cholesterol, Total 164 mg/dL (Normal) Range: [...] Microscopic Examination Comments: PATIENT WAS FASTINGPERFORMED BY: [id number] CarrizalesSt. [facility] [id number] Bacteria Few (Normal) Epithelial Cells (non 0-10 {/hpf} Range: 0 - 10 renal) (Normal) Mucus Threads Present (Abnormal) RBC 0-3 {/hpf} (Normal) Range: 0 - 3 WBC 6-10 {/hpf} Range: 0 - 5 (Abnormal) TSH 2.465 {uIU/mL} Comments: PATIENT WAS FASTINGPERFORMED BY: CreditCards.comMarlton Rehabilitation HospitalYrbkgk4254 [facility] [id number] :49 (Normal) Range: 0.350-5.500 Comments: Adult TSH concentrations below 5.5 uIU/mL do not rule out the presence of subclinical hypothyroidism. . EFFECTIVE Apr the adult reference interval for TSH will be changing to 0.450 - 4.500 uIU/mL. :49 Urinalysis, Routine Comments: PATIENT WAS FASTINGPERFORMED BY: CreditCards.comMarlton Rehabilitation HospitalQoaymz4937 [facility] [id number] Appearance Clear (Normal) Bilirubin Negative (Normal) Glucose Negative (Normal) Ketones Negative (Normal) Microscopic Examination See below: (Normal) Nitrite, Urine Negative (Normal) Occult Blood Negative (Normal) pH 6.0 (Normal) Range: 5.0-7.5 Protein Negative (Normal) Specific Kincaid 1.020 (Normal) Range: 1.005-1.030 Urine-Color Yellow (Normal) Urobilinogen,Semi-Qn 0.2 mg/dL (Normal) Range: 0.0-1.9 WBC Esterase 2+ (Abnormal) :03 DEXA BONE DENSITY STUDY () Radiology Report See Note (Normal) Comments: Exam Number: [id number] BONE DENSITOMETRY HISTORYOsteoporosis. TECHNIQUE Bone densitometry of [...] than in 2003, and 5.1% less than [id number]. IMPRESSIONThere is osteoporosis of the lumbar spine and left hip. Reported By: LAYO ROTH M.D. 29-Oct-20078:16 METABOLIC PANEL, BASIC (83723) Comments: PATIENT WAS FASTINGClinical Information: ADD DRAW FEE [id number] ADD [id number] PERFORMED BY: LabCoMarlton Rehabilitation HospitalTlqzwx6762 [facility] [id number] BUN 15 mg/dL (Normal) Range: 5-26 BUN/Creatinine Ratio 19 (Normal) Range: 8-27 Calcium, Serum 9.1 mg/dL (Normal) Range: 8.5-10.6 Carbon Dioxide, Total 27 mmol/L (Normal) Range: 20-32 Chloride, Serum 104 mmol/L (Normal) Range: 96-109 Creatinine, Serum 0.8 mg/dL (Normal) Range: 0.5-1.5 Glucose, Serum 94 mg/dL (Normal) Range: 65-99 Potassium, Serum 4.0 mmol/L (Normal) Range: 3.5-5.5 Sodium, Serum 141 mmol/L (Normal) Range: 135-148 11-Pin-500588:12 UNILAT DIA DIGITAL & CAD Radiology Report See Note (Normal) Comments: Exam Number: [id number] MAMMOGRAM, UNILATERAL LEFT DIAGNOSTIC DIGITAL AND CAD [...] mammograms werealso examined with computer-aided detection software ([employer], [employer].). Reported By: LAYO ROTH M.D. 89-Att-847017:21 BILAT SCRN DIGITAL & CAD Radiology Report See Note (Normal) Comments: Exam Number: [id number] MAMMOGRAM, BILATERAL SCREENING DIGITAL AND CAD HISTORYRoutine [...] wer ealso examined with computer-aided detection software ([employer], [employer] Reported By: LAYO ROTH M.D. :06 [...] 0.2 EU/dl (Normal) Range: 0.2 - 1.0 56-Imt-06907:12 TSH 3.09 {uIU/mL} (Normal) Range: 0.34-4.82 4-Nkw-744909:45 Urinalysis, Office (31051) UA - BILIRUBIN Negative (Normal) UA - [...] X-Ray Planned Observations CBC W/AUTO DIFF WBC (86671)Indication: Hypertensive heart disease without congestive heart failure On: :25 Request METABOLIC PANEL, COMPREHENSIVE (82362)Indication: Hypertensive heart disease without congestive heart failure On: :25 Request VITAMIN B-12 (CYANOCOBALAMIN) (26425)Indication: Vitamin B 12 deficiency On: :24 Request HgA1C , Office (35546)Indication: Impaired fasting glucose On: 78-Gtl-319036:13 Request MICROALBUMIN: CREATININE RATIO (75731) AND (28092)Indication: Impaired fasting glucose On: 2-Lvi-072770:26 Request CBC W/AUTO DIFF WBC (63214)Indication: Impaired fasting glucose On: 3-Lxp-127288:26 Request METABOLIC PANEL, COMPREHENSIVE (29405)Indication: Impaired fasting glucose On: 9-Kri-132722:25 Request PTT (Activated Partial Thromboplastin Time) (09362)Indication: Pre-operative exam (Renamed from Encounter for pre-operative examination) On: 7-Pss-090239:10 Request PT (Prothrobim Time) (61066)Indication: Pre-operative exam (Renamed from Encounter for pre-operative examination) On: 0-Ajz-619583:10 Request URINALYSIS, W/ MICRO (85661)Indication: Pre-operative exam (Renamed from Encounter for pre-operative examination) On: 8-Elo-572470:09 Request CBC W/AUTO DIFF WBC ([id number])Indication: Pre-operative exam (Renamed from Encounter for pre-operative examination) On: 3-Mze-819131:09 Request METABOLIC PANEL, COMPREHENSIVE ([id number])Indication: Pre-operative exam (Renamed from Encounter for pre-operative examination) On: 6-Nwd-481324:09 Request CBC W/AUTO DIFF WBC ([id number])Indication: Impaired fasting glucose On: 16-Dgw-279870:56 Request METABOLIC PANEL, COMPREHENSIVE ([id number])Indication: Impaired fasting glucose On: 85-Gbo-548843:56 Request VITAMIN B-12 (CYANOCOBALAMIN) ([id number])Indication: Vitamin B 12 deficiency On: 09-Cqm-792372:56 Request HgA1C , Office (53622)Indication: Impaired fasting glucose On: 40-Esj-970175:34 Request URINE TEA CULTURE-KOLBY COL COUNT ([id number])Indication: Urinary tract infection, site not specified On: 7-Izt-043513:37 Request URINE TEA CULTURE-KOLBY COL COUNT ([id number])Indication: Urinary frequency On: 13-Kjc-274039:40 Request LIPID PANEL (78458)Indication: Hypercholesterolemia On: 14-Qjs-249934:27 Request Hemoglobin Glyclated (HGB A1C) (49684)Indication: Impaired fasting glucose On: 05-Ldl-852717:27 Request METABOLIC PANEL, COMPREHENSIVE (59432)Indication: Hypertensive heart disease without congestive heart failure On: 49-Swl-337979:27 Request URINE TEA CULTURE-IDENTIFICATN ([id number])Indication: Urinary frequency On: 41-Cis-11024:43 Request HgA1C , Office ([id number])Indication: Impaired fasting glucose On: 28-Oct-20149:47 Request RHEUMATOID FACTOR-QUANT ([id number])Indication: Branch retinal artery occlusion of right eye On: 50-Avj-879719:21 Request SURI (ANTINUCLEAR ANTIBODY) ([id number])Indication: Branch retinal artery occlusion of right eye On: 08-Dea-610289:21 Request Protein S Profile (40637)Indication: Branch retinal artery occlusion of right eye On: 01-Yfv-279331:21 Request Protein C Profile ([id number])Indication: Branch retinal artery occlusion of right eye On: Request Antiphospholipid atb (44654)Indication: Branch retinal artery occlusion of right eye On: Request ANTICOAG ANTTHROMB III & ASSAY (41397)Indication: Branch retinal artery occlusion of right eye On: Request ANTITHROMBIN III ACTIVTY (43051)Indication: Branch retinal artery occlusion of right eye On: Request CLOTTING FACTOR II (61370)Indication: Branch retinal artery occlusion of right eye On: Request Factor V Leiden (38651)Indication: Branch retinal artery occlusion of right eye On: Request Protein Electrophoresis, Serum (SPEP) (08371)Indication: Branch retinal artery occlusion of right eye On: Request UPEP (27206)Indication: Branch retinal artery occlusion of right eye On: Request C-REACTIVE PROTEIN (76176)Indication: Branch retinal artery occlusion of right eye On: Request SED RATE ERYTHROCYTE ([id number])Indication: Branch retinal artery occlusion of right eye On: Request CBC W/AUTO DIFF WBC ([id number])Indication: Impaired fasting glucose On: 37 Request Comments: 4 months MICROALBUMIN: CREATININE RATIO (96270) AND (96050)Indication: Impaired fasting glucose On: :37 Request Comments: 4 months LIPID PANEL (55047)Indication: Impaired fasting glucose On: 37 Request Comments: 4 mnths METABOLIC PANEL, COMPREHENSIVE (15643)Indication: Impaired fasting glucose On: :37 Request Comments: 4 months Calcium Serum (37578)Indication: Abnormal blood chemistry On: :44 Request Comments: 2 weeks URINE TEA CULTURE-KOLBY COL COUNT (94632)Indication: Urinary tract infection, site not specified On: 31-Owy-027931:28 Request SPEP ([id number])Indication: Osteoporosis On: :13 Request UPEP ([id number])Indication: Osteoporosis On: 59-Lxs-589036:13 Request GLUCOSE TOLERANCE TEST (GTT) 2 hour (66204)Indication: Hyperglycemia On: 57-Bfi-496333:07 Request Vitamin D Hydroxy (01621)Indication: Vitamin D deficiency On: 32-Heu-69299:50 Request Vitamin D Hydroxy (67355) On: 83-Cha-982572:58 Request ASSAY, TROPONIN, QUANTITATIVE (aka Troponin I) (81478)Indication: Chest pain On: 83-Yqz-567111:06 Request D-Dimer (87734)Indication: Chest pain On: 60-Kfy-125103:05 Request VITAMIN B-12 (CYANOCOBALAMIN) (49853)Indication: Fatigue On: 26-Rra-242480:00 Request Vitamin D Hydroxy (24603)Indication: Osteoporosis On: 07-Oit-69353:59 Request METABOLIC PANEL, COMPREHENSIVE (49991)Indication: Hypertensive heart disease without congestive heart failure On: :28 Request LIPID PANEL ([id number])Indication: Hypercholesterolemia On: :27 Request HEPATIC FUNCTION PANEL ([id number])Indication: Hypercholesterolemia On: :27 Request URINALYSIS W/O MICRO ([id number])Indication: lower ext edema On: 97-Iqg-595737:32 Request TSH ([id number])Indication: lower ext edema On: :32 Request CBC WITH MANUAL DIFF ([id number])Indication: lower ext edema On: :32 Request METABOLIC PANEL, COMPREHENSIVE ([id number])Indication: lower ext edema On: :32 Request LIPID PANEL ([id number])Indication: Hypercholesterolemia On: :56 Request HEPATIC FUNCTION PANEL ([id number])Indication: Hypercholesterolemia On: 66-Tii-698878:56 Request URINALYSIS W/O MICRO ([id number])Indication: Hypertensive heart disease without congestive heart failure On: :03 Request TSH (00001)Indication: Hypertensive heart disease without congestive heart failure On: :03 Request METABOLIC PANEL, COMPREHENSIVE ([id number])Indication: Hypertensive heart disease without congestive heart failure On: :03 Request CBC WITH MANUAL DIFF ([id number])Indication: Hypertensive heart disease without congestive heart failure On: :03 Request HEPATIC FUNCTION PANEL ([id number])Indication: Hypercholesterolemia On: 8-Mhq-899652:03 Request LIPID PANEL ([id number])Indication: Hypercholesterolemia On: 9-Ekr-223843:03 Request URINE TEA CULTURE-IDENTIFICATN ([id number])Indication: Urinary tract infection, site not specified On: 0-Xwb-757888:34 Request URINALYSIS W/O MICRO ([id number])Indication: Hypertensive heart disease without congestive heart failure On: 32-Mhp-932313:20 Request TSH ([id number])Indication: Hypertensive heart disease without congestive heart failure On: 97-Dlv-691014:20 Request METABOLIC PANEL, COMPREHENSIVE ([id number])Indication: Hypertensive heart disease without congestive heart failure On: 06-Gur-114196:20 Request LIPID PANEL ([id number])Indication: Hypercholesterolemia On: :19 Request CBC WITH MANUAL DIFF ([id number])Indication: Hypertensive heart disease without congestive heart failure On: 37-Btl-368941:19 Request Planned Encounters Medical; [facility]ness Exam (DF Nurse) - On: 31-Dec-2018 10:00 [facility] NURSE, DF Medical; [facility] Exam (Doctor) - On: 22-Jan-2019 13:30 [facility] Fast DO, Audrey A Fast DO, Audrey A Planned Procedures COMPUTED TOMOGRAPHY ANGIOGRAPHY OF On: 24-Jun-2018 Intent BOTH CAROTID ARTERIES ([id number])By: Fast DO, Audrey A Fast DO, Audrey A SCREENING DIGITAL TOMOSYNTHESIS OF On: 24-Jun-2018 Intent BREAST ([id number])By: Fast DO, Audrey A Comments: dec Fast DO, Audrey A Flu Vaccine (Quadrivalent) 27714Sw: On: 24-Jun-2018 Intent Fast DO, Audrey A Fast DO, Audrey A Comments: Lot: [id number]: 03/23/19Site: L dltd, IMDose prefilled syringegiven by: CManchakVIS reviewed and ABN signed Cartoid DopplerBy: Fast DO, Audrey A On: 13-Mar-2018 Intent Fast DO, Adurey A Comments: sept ELECTROCARDIOGRAM, COMPLETE (ECG) On: 04-Dec-2017 Intent ([id number])By: Fast DO, Audrey A Fast DO, Audrey A DEXA SCAN AXIAL SKELETON ([id number])By: On: 04-Dec-2017 Intent Fast DO, Audrey A Fast DO, Audrey A Comments: DUE IN DECEMBER Doppler Ultrasound OtherBy: Fast DO, On: 06-Aug-2017 Intent Audrey A Fast DO, Audrey A Comments: left leg SCREENING DIGITAL TOMOSYNTHESIS OF On: 06-Aug-2017 Intent BREAST ([id number])By: Fast DO, Audrey A Fast DO, Audrey A Flu Vaccine (Quadrivalent) 83756Au: On: 06-Aug-2017 Intent Fast DO, Audrey A Fast DO, Audrey A Comments: Lot #:[id number] date:03/11/18Amount given:0.5mlRoute: IMSite given: deltoidGiven by: ARABELLA Burgos Radiology - Chest- PA and LatBy: On: 02-May-2017 Intent Fast DO, Audrey A Fast DO, Audrey A Cartoid DopplerBy: Fast DO, Audrey A On: 02-May-2017 Intent Fast DO, Audrey A ELECTROCARDIOGRAM, COMPLETE (ECG) On: 02-May-2017 Intent ([id number])By: Fast DO, Audrey A Fast DO, Comments: ekg- lvh with poor r wave progression no change sinus and no st/t wave changes Audrey A Flu Vaccine (Quadrivalent) 09062Uc: On: 03-Aug-2016 Intent Fast DO, Audrey A Fast DO, Audrey A Comments: FLUlot: [id number]:02/07site:Lt deltoidroute:IMdose:.5mlARABELLA VAZQUEZ Cartoid DopplerBy: Fast DO, Audrey A On: 05-Jun-2016 Intent Fast DO, Audrey A Comments: bilateral MAMMOGRAM, SCREENING, BOTH BREAST On: 05-Jun-2016 Intent ([id number])By: Fast DO, Audrey A Fast DO, Comments: nov Audrey A ELECTROCARDIOGRAM, COMPLETE (ECG) On: 05-Jun-2016 Intent ([id number])By: Fast DO, Audrey A Fast DO, Comments: [...] B12lot:5200exp:02/07site:lt deltroute:IMdose:ARABELLA BANSAL DEXA SCAN AXIAL SKELETON ([id number])By: On: 12-Nov-2015 Intent Fast DO, Audrey A Fast DO, Audrey A MAMMOGRAM, SCREENING, BOTH BREAST On: 14-Jul-2015 Intent ([id number])By: Fast DO, Audrey A Fast DO, Audrey A Cartoid DopplerBy: Fast DO, Audrey A On: 14-Jul-2015 Intent Fast DO, Audrey A Flu Vaccine (Quadrivalent) 11784Ro: On: 14-Jul-2015 Intent Fast DO, Audrey A Fast DO, Audrey A Comments: Lot #:[id number] date: 02/2016Amount given:prefilled syringeSite given:L Dltd, IMGiven by: ANA Caruso and PEDRITO signed ADMINISTRATION OF INFLUENZA VIRUS On: 14-Jul-2015 Intent VACCINE ([id number])By: Fast DO, Audrey A Fast DO, Audrey A EKG ([id number])By: Fast DO, Audrey A On: 08-Jul-2014 Intent Fast DO, Audrey A Comments: ekg showed normal sinus rhythym, normal axis, no acute st/t wave changes lvh - poor r wave progresxsion no change Echo CompleteBy: Fast DO, Audrey A On: 08-Jul-2014 Intent Fast DO, Audrey A FLU VAC, SPLIT, >3 YEARS, INTRAMUSC On: 08-Jul-2014 Intent ([id number])By: Fast DO, Audrey A Fast DO, Comments: Lot:[id number]:03/23/15Dose:0.5mLRoute:IMSite:L DltdGiven By:GRACIELA signed Audrey A ADMINISTRATION OF INFLUENZA VIRUS On: 08-Jul-2014 Intent VACCINE ([id number])By: Fast DO, Audrey A Fast DO, Audrey A MAMMOGRAM, SCREENING, BOTH BREAST On: 24-Jun-2014 Intent ([id number])By: Fast DO, Audrey A Fast DO, Audrey A EKG ([id number])By: Fast DO, Audrey A On: 24-Jun-2014 Intent Fast DO, Audrey A Comments: ekg [...] BONE DENSITY, AXIAL SKELETON On: 28-May-2013 Intent ([id number])By: Fast DO, Audrey A Fast DO, Comments: sep Audrey A Eprescribed prescriptions ([id number])By: On: 28-May-2013 Intent Kindra Vargas MAMMOGRAM, SCREENING, BOTH BREASTS On: 22-Jan-2013 Intent ([id number])By: Fast DO, Audrey A Fast DO, Comments: february Audrey A Eprescribed prescriptions ([id number])By: On: 22-Jan-2013 Intent Kindra Vargas Eprescribed prescriptions ([id number])By: On: 15-Oct-2012 Intent Kindra Vargas Rocephon Injection, 1 Gm ([id number])By: On: 09-Sep-2012 Intent Fast DO, Audrey A Fast DO, Audrey A Comments: [id number] 5.141 gram,plit into 2 injections of 2ml with lidocaine 1%R hip, IMMegan Eprescribed prescriptions ([id number])By: On: 09-Sep-2012 Intent Kindra Vargas EKG ([id number])By: Fast DO, Audrey A On: 30-Aug-2012 Intent [...] MAMMOGRAM, SCREENING, BOTH BREASTS On: 12-Dec-2011 Intent ([id number])By: Fast DO, Audrey A Fast DO, Comments: a A TDAP VACCINE >7 IM ([id number])By: [place] On: 17-May-2011 Intent DO, Audrey A Fast DO, Audrey A Comments: Lot #:[id number] date:mount given:0.5mlRoute: IMSite given:left deltGiven by: ARABELLA Burgos EKG (49590)By: Kindra Vargas On: 17-May-2011 Intent Comments: ekg showed normal sinus rhythym, normal axis, no acute st/t wave changes poor r wave progerssion- lvh no change DXA, BONE DENSITY, AXIAL SKELETON On: 17-May-2011 Intent ([id number])By: Fast DO, Audrey A Fast DO, Comments: aug Audrey A Breast Screening - BilateralBy: Fast On: 06-Sep-2010 Intent DO, Audrey A Fast DO, Audrey A Comments: bilateral mammo MAMMOGRAM, SCREENING, BOTH BREASTS On: 02-Sep-2010 Intent ([id number])By: Fast DO, Audrey A Fast DO, Audrey A Solu -Medrol Injection, 125 mg On: 25-Apr-2010 Intent ([id number])By: Bc BERG, Shandra Denney Comments: 2ml given im rt hip [id number] exp 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 EKG (30718)By: Kindra Vargas On: 01-Feb-2010 Intent Comments: ekg- sinus edy lvh no acute change MAMMOGRAM, SCREENING, BOTH BREASTS On: 18-Aug-2009 Intent ([id number])By: Fast DO, Audrey A Fast DO, Audrey A DXA, BONE DENSITY, AXIAL SKELETON On: 18-Aug-2009 Intent ([id number])By: Fast DO, Audrey A Fast DO, Comments: oct Audrey A Bio Z ([id number])By: Fast DO, Audrey A On: 12-May-2009 Intent Fast DO, Audrey A Comments: high svr on bioz normal cardiac output Renal Duplex ScanBy: Fast DO, Audrey On: 12-May-2009 Intent A Fast DO, Audrey A Bio Z ([id number])By: Fast DO, Audrey A On: 11-Jan-2009 Intent Fast DO, Audrey A Comments: good cardiac output and svr -- bpis good EKG ([id number])By: Fast DO, Audrey A On: 11-Jan-2009 Intent Fast DO, Audrey A Comments: ekg showed normal sinus rhythym, normal axis, no acute st/t wave changes lvh RIGO (Ankle Brachial Index) On: 30-Sep-2008 Intent ([id number])By: Floresita Parker LPN ADMINISTRATION OF INFLUENZA VIRUS On: 10-Jul-2008 Intent VACCINE (G0008)By: Saida Oreilly LPN FLU VAC, SPLIT, >3 YEARS, INTRAMUSC On: 10-Jul-2008 Intent ([id number])By: Saida Oreilly LPN Comments: 0.5cc given im lt loyd H.Horn MAMMOGRAM, SCREENING, BOTH BREASTS On: 30-Jun-2008 Intent ([id number])By: Fast DO, Audrey A Fast DO, Audrey A RIGO (Ankle Brachial Index) On: 30-Jun-2008 Intent ([id number])By: Fast DO, Audrey A Fast DO, Comments: nov Audrey A Radiology - Knee - Left - Weight On: 19-May-2008 Intent BearingBy: Fast DO, Audrey A Fast DO, Audrey A Venous Doppler - BothBy: Fast DO, On: 22-Apr-2008 Intent Audrey A Fast DO, Audrey A Comments: lower ext Bio Z ([id number])By: Fast DO, Audrey A On: 22-Apr-2008 Intent Fast DO, Audrey A Comments: parameters good EKG ([id number])By: Fast DO, Audrey A On: 22-Apr-2008 Intent Fast DO, Audrey A Comments: ekg showed normal sinus rhythym, normal axis, no acute st/t wave changes poor r wave progression unchanged Echo CompleteBy: Fast DO, Audrey A On: 22-Apr-2008 Intent Fast DO, Audrey A RIGO (Ankle Brachial Index) On: 07-Aug-2007 Intent ([id number])By: Marium Liu RN RIGO (Ankle Brachial Index) On: 26-Jul-2007 Intent ([id number])By: Fast DO, Audrey A Fast DO, Audrey A DXA, BONE DENSITY, AXIAL SKELETON On: 26-Jul-2007 Intent ([id number])By: Fast DO, Audrey A Fast DO, Comments: in sumaya Ventura A MAMMOGRAM, SCREENING, BOTH BREASTS On: 26-Jul-2007 Intent ([id number])By: Fast DO, Audrey A Fast DO, Audrey A Pulse Oximetry (16120)By: Noe BETTENCOURT, On: 20-Nov-2006 Intent Marium Holter Moniter (42876)By: Ly, On: 10-Sep-2006 Intent Sridevi Holter Moniter ([id number])By: [place] NIETO, On: 30-Jul-2006 Intent Audrey A [...] Patient Instructions Indication: [facility]oster without [facility] : How to access [...] Follow up for chronic medical issues: still [id number] shots in the eye- they have been [...] The patient does have durable power of senior trial attorney and living will. The patient has noticed [...] The patient does have durable power of senior trial attorney and living will. The patient has noticed [...] up for chronic medical issues: she saw nabele and ended up having tubes in ears [...] only taking 5000 5 days aweek and 36546 twice a week- - take 53012 4 x a week- she was out [...] for chronic medical issues: didnt get colonsocopy- [facility] office never called her to schedule- [...] Internal Medicine End: 12-Jun-2006 19:47 Payers MedicareAnthem BC[facility]/JOESPH CHAVEZ [facility]; a guarantor
--- OUTSIDE RECORDS SUMMARY | 2018-12-16 23:18 | XMS RPT_ITS | Continuity of Care Document ---
:1935 Author Organization [facility] Address [address] [facility] [address] [place] [address] Phone Care Team Providers Name Role Phone [...] Gastroesophageal reflux disease without esophagitis (K21.9, 530.81) Comments: chronic stable-continue present regimen Status: Active Hearing loss, unspecified laterality (389.9) [...] (Z86.010, V12.72) Status: Active Hypercholesterolemia (E78.00, 272.0) Comments: watch animal fats increase ex she will alternate 80 mg qod with 40 mg Status: Active Hyperglycemia (R73.9, 790.29) Status: Active Hypertensive heart disease without congestive heart failure (I11.9, 402.90) Status: Active Impaired fasting glucose (R73.01, 790.21) Comments: keep working on diet and ex Status: Active [facility] WELLNESS EXAM Status: Active [...] knee replacement Status: Active Osteoporosis (M81.0, 733.00) Comments: exercise - weight bearing- patient not want additional meds Status: Active Other abnormal finding of urine [...] Active Vitamin B 12 deficiency (E53.8, 266.2) Comments: chronic stable-continue present regimen Status: Active Vitamin D deficiency (E55.9, 268.9) Comments: chronic stable-continue present regimen Status: Active Medications Name Dates Details Aspirin 325 MG Oral Tablet Active 1 tab daily (325 MG) Atorvastatin Calcium 80 MG Oral Tablet 1 (one) Tablet qd for 0 days Quantity: 90 {Tablet} Refills: 3 Ordered:30-Sep-2018 Audrey Rodriguez DOsly Audrey Simon Start : 30-Sep-2018 Active Atorvastatin Calcium 80 MG Oral Tablet 1 (one) Tablet qd for 0 days Quantity: 90 {Tablet} Refills: 3 Ordered:30-Sep-2018 Audrey Rodriguez DOsly Audrey Simon Start : 30-Sep-2018 Active Lotrel 10-40 MG Oral Capsule 1 Capsule daily for 90 days Quantity: 90 {Capsule} Refills: 3 Ordered:04-Feb-2018 [place] NIETO Audrey SALINASsly Audrey Simon Start : 04-Feb-2018 Active Micardis 40 MG Oral Tablet 1 Tablet qd for 90 days Quantity: 90 {Tablet} Refills: 3 Ordered:17-May-2018 [place] NIETO Audrey SALINASsly Audrey Simon Start : 17-May-2018 Active Mobic 7.5 MG Oral Tablet 1 (one) Tablet bid prn with food for 0 days Quantity: 180 {Tablet} Refills: 1 Ordered:03-Jun-2018 [place] NIETO Audrey SALINASsly NIETO Audrey Simon Start : 03-Jun-2018 Active Omeprazole 20 MG Oral Capsule Delayed Release [address] qd for 0 days Quantity: 90 {Capsule} Refills: 3 Ordered:18-Dec-2017 Audrey Rodriguez DOsly Audrey Simon Start : 18-Dec-2017 Active OXYBUTYNIN CHLORIDE ER, 10MG (Oral Tablet Extended Release 24 Hour) 1 tab daily (10 MG) Active Vitamin D3 5000 UNIT Oral Capsule 1 (one) Capsule qd for 0 days Quantity: 60 {Capsule} Refills: 0 Ordered:05-Apr-2016 Audrey Rodriguez DOsly Audrey Simon Start : 05-Apr-2016 Active Comments:take 3 one day - 1 rest of week AMOXICILLIN, 875MG (Oral Tablet) 1 (one) Tablet bid for 21 days Quantity: 42 {Tablet} Refills: 0 Ordered:21-Nov-2013 Audrey Rodriguez DOsly Audrey Simon Start : 21-Nov-2013 End : 12-Dec-2013 Inactive Comments:with probiotic Atorvastatin Calcium 10 MG Oral Tablet 1 (one) Tablet Tablet qd for 0 days Quantity: 90 {Tablet} Refills: 3 Ordered:24-Jun-2018 Audrey Rodriguez DOsly , Audrey A Start : 04-Feb-2018 End : 24-Jun-2018 Inactive [...] days Quantity: 1 {Package(s)} Refills: 0 Ordered:20-Nov-2006 Audrey Rodriguez DOsly Audrey A Start : 20-Nov-2006 End : [...] days Quantity: 30 {Tablet} Refills: 0 Ordered:08-Feb-2016 Audrey Rodriguez DOsly , Audrey A Start : 30-Nov-2015 End : 30-Dec-2015 Inactive ZOSTAVAX, 43211ZMF/0.65ML (Subcutaneous Solution Reconstituted) 1 For Solution x1-bring [...] Quantity: 3 {Tablet} Refills: 3 Ordered:12-Dec-2011 Fast DO Audrey AFast DO, Audrey A Start : 12-Dec-2011 End : 12-Dec-2011 Discontinued CALCIUM 500, 500MG (Oral Tablet) 1 (one) Tablet tid for 0 days Quantity: 90 {Tablet} Refills: 0 Ordered:04-Dec-2017 Fast DOKea AFast DO, Audrey A Start : 02-Nov-2009 End : 04-Dec-2017 Discontinued Comments:This order discontinued per [facility]. Calcium Citrate Plus Oral Tablet 1 (one) Tablet 500 mg qd for 0 days Quantity: 30 {Tablet} Refills: 0 Ordered:13-Mar-2018 Carley Wise Start : 04-Dec-2017 End : 13-Mar-2018 Discontinued CEFDINIR, 300MG (Oral Capsule) 1 Capsule bid for 0 days Quantity: 20 {Capsule} Refills: 0 Ordered:15-Oct-2012 Ke Rodriguez DOa AFast DO, Audrey A Start : 15-Oct-2012 [...] Quantity: 90 {Tablet} Refills: 3 Ordered:05-Jun-2016 Fast DO Audrey AFast DO, Audrey A Start : 05-Jun-2016 End : 05-Jun-2016 Discontinued Crestor 20 MG Oral Tablet 1/2 Tablet 3 times weekly for 0 days Quantity: 90 {Tablet} Refills: 3 Ordered:05-Jun-2016 [place] NIETO Audrey SALINASsly Audrey A Start : 05-Jun-2016 End : 05-Jun-2016 Discontinued ERGOCALCIFEROL, 19309UXYT (Oral Capsule) 1 (one) Capsule twice a week for 0 days Quantity: 24 {Capsule} Refills: 0 Ordered:12-May-2009 [place] NIETO Audrey SALINASsly Audrey A Start : 12-May-2009 End : 12-May-2009 Discontinued FLAVOXATE HCL, 100MG (Oral Tablet) 1 Tablet tid for 0 days Quantity: 12 {Tablet} Refills: 0 Ordered:17-Jul-2012 [place] NIETO Audrey SALINASsly Audrey A Start : 17-Jul-2012 End : 17-Jul-2012 Discontinued FOSAMAX, 70MG (Oral Tablet) 1 Tablet Daily for 0 days Quantity: 12 {Tablet} Refills: 3 Ordered:30-Jul-2006 Mast Marium BETTENCOURT Start : 30-Jul-2006 End : 12-Sep-2006 Discontinued HYDROCHLOROTHIAZIDE, 25MG (Oral Tablet) 1 (one) Tablet qd for 90 days Quantity: 90 {Tablet} Refills: 3 Ordered:28-May-2013 [place] NIETO Audrey SALINASsly Audrey A Start : 28-May-2013 End : 28-May-2013 Discontinued Comments:but she doesnt take it qd because she doesnt want to have to be using the restroom all day KEFLEX, 500MG (Oral Capsule) 1 (one) Capsule bid [id number] for 0 days Quantity: 20 {Capsule} Refills: 0 Ordered:30-Aug-2012 [place] NIETO Audrey SALINASsly Audrey A Start : 30-Aug-2012 End : 30-Aug-2012 Discontinued Metoprolol Tartrate 25 MG Oral Tablet 1 (one) Tablet qd for 90 days Quantity: 90 {Tablet} Refills: 3 Ordered:06-Aug-2017 Kindra Vargas Start : 28-Jan-2014 End : 06-Aug-2017 Discontinued NASONEX, 50MCG/ACT (Nasal Suspension) 2 (two) Suspension qd for 0 days Quantity: 1 {Suspension} Refills: 0 Ordered:15-Oct-2012 [place] NIETO Audrey Duran DO, Audrey A Start : 15-Oct-2012 End [...] days Quantity: 30 {Tablet} Refills: 3 Ordered:06-Sep-2016 Audrey Rodriguez DOsly DO Audrey A Start : 06-Sep-2016 End : [...] days Quantity: 90 {Capsule_DR} Refills: 3 Ordered:12-Dec-2011 Audrey Rodriguez DO, DO, Audrey A Start : 12-Dec-2011 End [...] days Quantity: 1 {Pre-filled_Pen_Syringe} Refills: 1 Ordered:14-Jun-2016 Audrey Rodriguez DO, DO, Audrey A Start : 14-Jun-2016 End : 14-Jun-2016 Discontinued Comments:Lot #:[id number] date:07/2018Amount given:60mg/mlRoute: SQSite given: left armGiven by: ARABELLA Burgos Valtrex 1 GM Oral Tablet 1 (one) Tablet Tablet tid for 0 days Quantity: 21 {Tablet} Refills: 0 Ordered:06-Aug-2017 HarjitemmanuelfredericKindra Start : 19-Jun-2016 End : 06-Aug-2017 Discontinued [...] of 02-Sep-2010 screening Status: Inactive as of 30-Nov-2010 screening Status: Inactive as of 24-Aug-2009 screening Status: Inactive as of 22-Jan-2013 screening Status: Inactive as of 24-Jun-2014 supraventricular ectopy- avoid caffeine and decongestants- has [...] Dates Details left partial knee replacement 05/10- Areli Completed Tonsillectomy Completed tubal ligation Completed typanostomy- bilateral- 2010 Completed Date Value Details 02-Jul-2018 CTA Neck W/WO Contrast Result: Comments: See Note; NOTES: [facility] [address] [place] [address] CTA Neck W/WO Contrast MR#: [id number] Acct: [id number] Name: MANISH KERN Rep #: [id number] : 1935 F 83 From: Alvaro Lancaster MD PCP: Audrey Rodriguez DO Status: REG CLI Study: CTA Neck W/WO Contrast Date of Exam: 07/02/18 Exam# [id number] Ordering Dr: Audrey Rodriguez DO STUDY: CT [...] Normal pharyngeal and laryngeal structures. No ac [place] intracranial process is evident in limited evaluation. [...] or vertebral artery stenosis. NASCET Criteria : Favian H, et al. Quantitative Vascular Measurements in Arterial Occlusive Disease. RadioGraphics 2005;25:1355-3758. Electronically Signed: Alvaro Fuentesney, at 17:50 EDT Tel , Service support , CC: Audrey Rodriguez DO Surveillance System Monitor: Signed 15-Jun-2018 Carotid Duplex Ultrasound Result: Comments: See Note; NOTES: [facility] [address] [place] [address] Carotid Duplex Ultrasound 06/11/18 1013 MR#: [id number] Acct: [id number] Name: MANISH ERICKSON Rep #: [id number] : 1935 82 From: Archie Shipman MD Attending Dr: Audrey Rodriguez DO Status: REG CLI Ordering Dr: Audrey Rodriguez DO Date: 06/11/18 Location: [facility] Sex: F C Admitted: Reason [...] left verte bral artery. Procedure Carotid Duplex 28208. The exam was diagnostic. Exam performed in [...] zach: Audrey Rodriguez Performed By: Leanna Scanlon, HAWA, RVT 06/15/18 1418 Date Archie Fowler MD CC: Audrey Rodriguez DO; Audrey Rodriguez DO Date Dictated: 06/11/18 1013 Date Transcribed: 06/15/18 1418 Surveillance System Monitor: Signed 01-Jan-2018 Dexa Bone Density Study Result: Comments: See Note; NOTES: [facility] [address] [place] [address] Dexa Bone Density Study MR#: [id number] Acct: [id number] Name: MANISH KERN Rep #: [id number] : 1935 F 82 From: Arjun Weathers MD PCP: uAdrey Rodriguez DO Status: REG CLI Study: Dexa Bone Density Study Date of Exam: 01/01/18 Exam# [id number] Ordering Dr: Audrey Rodriguez DO STUDY: DUAL [...] Arjun Weathers MD at 14:40 EDT Tel [phone], Service support , CC: Audrey Rodriguez DO Surveillance System Monitor: Signed 25-Aug-2017 SCREENING MAMM (CAD), BILAT Result: Comments: See Note; NOTES: [facility] [address] [place] [address] SCREENING MAMM (CAD), BILAT MR#: [id number] Acct: [id number] Name: MANISH KERN Rep #: [id number] : 1935 F 82 From: Arjun Weathers MD PCP: Audrey Rodriguez DO Status: PRE CLI Study: SCREENING MAMM (CAD), BILAT Date of Exam: 08/25/17 Exam# [id number] Ordering Dr: Audrey Rodriguez DO MAMM OGRAPHY [...] delay biopsy of a clinically suspicious abnormality. [id number] Electronically Signed: Arjun Weathers MD at 9:39 EST Tel [phone], Service support , CC: Audrey Rodriguez DO Surveillance System Monitor: Signed 07-Aug-2017 Venous Duplex Lower Extremity Result: Comments: See Note; NOTES: [facility] [address] [place] [address] Venous Duplex US, Unilateral 08/06/17 1403 MR#: [id number] Acct: [id number] Name: MANISH LOGAN Rep #: [id number] : 1935 82 From: Archie Shipman MD [...] Physician: Audrey Rodriguez Performed By: Isabel Kern, RDCS, RVT 08/07/172024 Date Archie Shipman MD CC: Audrey Rodriguez DO Date Dictated: 08/06/17 1403 Date Transcribed: 08/07/172024 Surveillance System Monitor: Signed 23-Jun-2017 Echocardiogram Complete Result: Comments: See Note; NOTES: [facility] [address] [place] [address] Echo Complete 06/22/17 1002 MR#: [id number] Acct: [id number] Name: CONCHAMANISH ep #: [id number] : 1935 81 From: Mac Smith MD Attending Dr: Elbert Sepulveda MD Status: REG CLI Ordering Dr: Elbert Sepulveda MD Date: 06/22/17 Location: [facility] Sex: F C Admitted: Reason For Study: [...] Dictated: 06/22/17 1002 Date Transcribed: 06/23/17 1203 Surveillance System Monitor: Signed 03-May-2017 Carotid Duplex Ultrasound Result: Comments: See Note; NOTES: [facility] [address] [place] [address] Carotid Duplex Ultrasound 05/03/17 1338 MR#: [id number] Acct: [id number] Name: MANISH ERICKSON Rep #: [id number] : 1935 81 From: Archie Shipman MD Attending Dr: Audrey Rodriguez DO Status: REG CLI Ordering Dr: Audrey Rodriguez DO Date: 05/03/17 Location: [facility] Sex: F C Admitted: Reason For Study: [...] the left vertebral artery. Procedure Carotid Duplex 05349. The exam was diagnostic. Exam performed in department. Interpretation Summary Mild (<50%) stenosis right extrac ranial internal carotid. Mild (<50%) stenosis left extracranial internal carotid. Flow within the vertebral arteries is antegrade bilaterally. Ordering Physician: Audrey Rodriguez Performed By: Lloyd Barclay RVT 05/03/17 1620 Date Archie Shipman MD CC: Audrey Rodriguez DO Date Dictated: 05/03/17 1338 Date Transcribed: 05/03/171619 Surveillance System Monitor: Signed 02-May-2017 Chest PA and Lateral Result: Comments: See Note; NOTES: [facility] [address] [place] [address] Chest PA and Lateral MR#: [id number] Acct: [id number] Name: MANISH KERN Rep #: [id number] : 1935 F 81 From: Arjun Weathers MD PCP: Audrey Rodriguez DO Status: REG CLI Study: Chest PA and Lateral Date of Exam: 05/02/17 Exam# [id number] Ordering Dr: Audrey Rodriguez DO STUDY: X-RAY [...] Arjun Weathers MD at 15:31 EDT Tel [phone], Service support , CC: Audrey Rodriguez DO Surveillance System Monitor: Signed 11-Aug-2016 Bilat Scrn Digital AND CAD Result: Comments: See Note; NOTES: [facility] [address] [place] [address] Verdana 4d Bilat Scrn Digital AND CAD MR#: [id number] Acct: [id number] Name: MANISH KERN Rep #: [id number] : 1935 F 81 From: Arjun Weathers MD PCP: Audrey Rodriguez DO Status: REG CLI Study: [place] Scrn Digital AND CAD Date of Exam: 08/11/16 Exam# [id number] Ordering Dr: Audrey Rodriguez DO MAMMOGRAPHY - [...] no significant change since the prior study. [facility]/Gely Scrn Digital AND CAD IMPRESSION: Stable bilateral screening mammogram. Yearly follow-up mammogram recommended. (A) ASSESSMENT CATEGORY: BIRADS Category 1: Negative. A letter regarding these results will be sent to the patient by the facility within 30 days. Approximately 10% of breast can cers are not detected by mammography. A normal mammogram should not delay biopsy of a clinically suspicious abnormality. [id number] Electronically Signed: Arjun Weathers MD at 13:43 EST Te l [phone], Service support [phone], CC: Audrey Rodriguez DO Surveillance System Monitor: Signed 14-Jun-2016 Carotid Duplex Ultrasound Result: Comments: See Note; NOTES: [facility] [address] [place] [address] Carotid Duplex Ultrasound 06/08/16 1257 MR#: [id number] Acct: [id number] Name: MANISH HADLEY Rep #: [id number] : 1935 80 From: Max Bustillos MD Attending Dr: Audrey Rodriguez DO Status: REG CLI Ordering Dr: Audrey Rodriguez DO Date: 06/08/16 Location: [facility] Sex: F C Admitted: Reas [...] Dictated: 06/08/16 1257 Date Transcribed: 06/14/16 1220 Surveillance System Monitor: Signed 05-Apr-2016 Knee 4 or More Views Result: Comments: See Note; NOTES: [facility] [address] [place] [address] Verdana 4d Knee 4 or More Views MR#: [id number] Acct: [id number] Name: MANISH KERN Rep #: [id number] : 1935 F 80 From: Arjun Weathers MD PCP: Audrey Rodriguez DO Status: REG CLI Study: Knee 4 or More Views Date of Exam: 04/05/16 Exam# [id number] Ordering Dr: Hayley Rodriguez DO STUDY: X-RAY [...] Weathers MD 04/05 at 10:47 EDT Tel [phone], Service support [phone], RAD/Knee 4 or More Views IMPRESSION: Degenerative arthrosis. Chondrocalcinosis. Small joint effusion. Electronically Signed: Arjun Weathers MD at 10:47 EDT Tel [phone], Service support [phone], CC: Audrey Rodriguez DO Surveillance System Monitor: Signed 28-Dec-2015 Dexa Bone Density Study () Result: Comments: See Note; NOTES: [facility] [address] [place] [address] Verdana 4d Dexa Bone Density Study () MR#: [id number] Acct: [id number] Name : MANISH KERN Rep #: [id number] : 1935 F 80 From: Arjun Weathers MD PCP: Audrey Rodriguez DO Status: REG CLI Study: Dexa Bone Density Study () Date of Exam: 12/28/15 Exam# [id number] [place] Dr: Audrey Rodriguez DO STUDY: DUAL ENERGY [...] Society for Clinical Densitometry http://www.iscd.org 3. Na tional Osteoporosis Foundation http://www.nof.org Electronically Signed: Arjun Weathers MD at 12:54 EDT Tel [phone], Service support [phone], CC: Syl Rodriguez DO Surveillance System Monitor: Signed 12-Nov-2015 ELECTROCARDIOGRAM, COMPLETE (ECG) (34147) Comments: ekg showed normal sinus rhythym, normal axis, no acute st/t wave changes lvh no change Result: [MEASUREMENTS ANALYSIS] Date of Test: 11/12/2015 10:43:53; Heart Rate: 54; [place] Interval: 174; QRS: 98; QT Interval: 448; Corrected QT Interval (QTc): 438; P Wave [place]: 36; QRS Wave [place]: -21; T Wave [place] : 18; Blood Pressure: 168/84 [ECG DIAGNOSTIC STATEMENTS] Date of Test: 11/12/2015 10:43:53; Summary: Sinus Bradycardia Voltage criteria for LVH (R(I)+S(III) exceeds 2.50 mV) -Voltage criteria w/o ST/ T abnormality may be normal. -Poor R-wave progression -nonspecific -consider old anterior infarct. BORDERLINE 11-Aug-2015 Carotid Duplex Ultrasound Result: Comments: See Note; NOTES: [facility] [address] [place] [address] Carotid Duplex Ultrasound 08/05/15 0957 MR#: [id number] Acct: [id number] Name: MANISH KERN Rep #: [id number] : 1935 80 From: Max Bustillos MD [...] the left bulb . Procedure Carotid Duplex 94424. Exam performed in department. Interpretation Summary Mild (<50%) stenosis right extracranial internal carotid. Mild (<50%) stenosis left extracra nial internal carotid. Flow within the vertebral arteries is antegrade bilaterally. Ordering P hysician: Audrey Rodriguez Performed By: Isabel Kern RDCS 08/11/15 0803 Date B tim Bustillos MD CC: Audrey Rodriguez DO Date Dictated: 08/05/15 0957 Date Transcribed: 08/11/15802 Surveillance System Monitor: Signed 10-Aug-2015 Bilat Scrn Digital AND CAD Result: Comments: See Note; NOTES: [facility] [address] [place] [address] Verdana 4d Bilat Scrn Digital AND CAD MR#: [id number] Acct: [id number] Name: MANISH KERN Rep #: [id number] : 1935 F 80 From: Arjun Weathers MD PCP: Audrey Rodriguez DO Status: REG CLI Study: Bilat Scrn Digital AND CAD Date of Exam: 08/10/15 Exam# [id number] Ordering Dr: Audrey Rodriguez DO MAMMOGRAPHY - [...] Arjun Weathers MD at 13:35 EST Tel [phone], Service support [phone], CC: Audrey Rodriguez DO Surveillance System Monitor: Signed 28-Jul-2014 Bilat Scrn Digital & CAD Result: Comments: See Note; NOTES: [facility] [address] [place] [address] Breast Imaging Report MR#: [id number] Acct: [id number] Name: MANISH KERN Rep #: [id number] : 1935 F 79 From: Arjun Weathers MD PCP: Audrey Rodriguez DO Status: REG CLI Exam# [id number] Ordering Dr: Audrey Rodriguez DO MAMMOGRAPHY - [...] Arjun Weathers MD at 10:23 EST Tel [phone], Marvin uribe support [phone], CC: Audrey Rodriguez DO Surveillance System Monitor: Signed 16-Jul-2014 Echocardiogram Complete Result: Comments: See Note; NOTES: [facility] [address] [place] [address] Echo Complete 07/15/14 1204 MR#: [id number] Acct: [id number] Name: CONCHADO RIS A Rep #: [id number] : 1935 79 From: Jhon Parker MD Attending Dr: Audrey Rodriguez DO Status: REG CLI Ordering Dr: Audrey Rodriguez DO Date: 07/15/14 Location: [facility] Sex: F C Admitted: Procedu re This was a 2D Doppler, Color Flow [...] Physician: Audrey Rodriguez Performed By: LORETO Jones 07/16/14 1209 Date Jhon Parker MD CC: Audrey Rodriguez DO Date Dictated: 06/25 11/07 1204 Date Transcribed: 07/16/141208 Surveillance System Monitor: Signed 06-Jul-2014 Carotid Duplex Ultrasound Result: Comments: See Note; NOTES: [facility] [address] [place] [address] 06/26/14 0932 MR#: [id number] Acct: [id number] Name: MANISH KERN Rep #: [id number] [...] in the left bulb. Procedure Carotid Duplex 05877. The exam was diagnostic. Exam performed in [...] CC: Audrey Rodriguez DO Date Dictate d: 06/26/14 0932 Date Transcribed: 06/28/142152 Surveillance System Monitor: Signed 29-Dec-2013 Abdomen/Pelvis without Cont Result: Comments: See Note; NOTES: [facility] [address] [place] [address] CAT Scan Report MR#: [id number] Acct: [id number] Name: MANISH KERN Rep #: [id number] : 1935 F 78 From: Medhat Leach MD PCP: uAdrey Rodriguez DO Status: REG CLI Study: Abdomen/Pelvis without Cont Date of Exam: 12/29/13 Exam# [id number] Ordering Dr: Sabina Damon DO GELA DY: [...] at 13:28 EDT Tel , Service support [phone], CC: Audrey Rodriguez DO; Sabina Damon DO Surveillance System Monitor: Signed 14-Oct-2013 Dexa Bone Density Study (HP) Result: Comments: See Note; NOTES: [facility] [address] [place] [address] Bone Density Report MR#: [id number] Acct: [id number] Name: MANISH KERN Rep #: [id number] : 1935 F 78 From: Arjun Weathers MD PCP: Audrey Rodriguez DO Status: REG CLI Study: Dexa Bone Density Study (HP) Date of Exam: 10/14/13 Exam# [id number] Ordering Dr: Audrey Rodriguez DO STUDY: DUAL [...] M.D. at 15:58 EST , Service support [phone], CC: Audrey Rodriguez DO Surveillance System Monitor: Signed Immunization Name Dates Details Influenza (3 [...] DM Status: Active Sister 1 Comments: , [place]- age 52 Status: Active Sister 2 Comments: [...] kg/m2 Body Surface Area Calculated 1.77 m2 08-Tdw-341643:53 Temperature 98.1 f Weight 167 lb Height [...] Height 0 in Head Circumference 0.00 cm :39 Temperature 97.5 f Comments: Method: Oral Pulse [...] Description Value Details :32 CREATININE FINGERSTICK Comments: [facility] [place] [address] [address] [place], [place] [id number] EGFR WB > 60.0000 mL/min (Normal) CREATININE WB 0.7 mg/dL (Normal) Range: 0.55-1.02 :21 CBC with auto diff (36782) Comments: PATIENT WAS FASTINGPERFORMED BY: [facility] [id number] [facility]ie [facility] [id number] Immature Grans (Abs) 0.0 {x10E3/uL} (Normal) Range: [...] 3.77-5.28 WBC 5.9 {x10E3/uL} (Normal) Range: 3.4-10.8 4-Ecx-779657:21 LIPID PANEL (74882) Comments: PATIENT WAS FASTINGPERFORMED BY: [facility] [id number] [facility] [id number] LDL/HDL Ratio 2.3 {ratio} (Normal) Range: 0.0-3.2 Comments: LDL/HDL Ratio Men Women 1/2 Avg.Risk 1.0 1.5 Av g.Risk 3.6 3.2 2X Avg.Risk 6.2 5.0 3X Avg.Risk 8.0 6.1 LDL Cholesterol Calc 94 mg/dL (Normal) Range: 0-99 VLDL Cholesterol Alexander 30 mg/dL (Normal) Range: 5-40 HDL Cholesterol 41 mg/dL (Normal) Triglycerides 149 mg/dL (Normal) Range: 0-149 Cholesterol, Total 165 mg/dL (Normal) Range: 100-199 7-Mpn-520655:21 MICROALBUMIN: CREATININE RATIO Comments: PATIENT WAS FASTINGPERFORMED BY: [facility] [id number] [facility] [id number] (59444) AND (60340) Alb/Creat Ratio 6.6 {mg/g_creat} (Normal) Range: 0.0-30.0 Comments: Normal: 0.0 - 30.0 Albuminuria: 31.0 - 300.0 Clinical albuminuria: >300.0 Albumin, Urine 3.9 ug/mL (Normal) Creatinine, Urine 58.9 mg/dL (Normal) 3-Zza-834377:21 METABOLIC PANEL, COMPREHENSIVE Comments: PATIENT WAS FASTINGPERFORMED BY: [employer]6370 [facility] [id number]; appt 09/30 (06660) ALT (SGPT) 19 [iU]/L (Normal) Range: 0-32 [...] 8-27 Glucose 104 mg/dL (Abnormal) Range: 65-99 8-Jge-747888:21 HGB A1C (26241) Comments: PATIENT WAS FASTINGPERFORMED BY: [employer]6[facility] [id number] Hemoglobin A1c 5.6 % (Normal) Range: 4.8-5.6 Comments: . Prediabetes: 5.7 - 6.4 Diabetes: >6.4 Glycemic control for adults with diabetes: <7.0 :29 Hemoglobin A1c 5.5 % (Normal) Comments: PATIENT WAS FASTINGPERFORMED BY: [facility] Bduzmi7751 [address] Road[address]ublin [place] [id number] Range: 4.8-5.6 Comments: . Prediabetes: 5.7 - 6.4 Diabetes: >6.4 Glycemic control for adults with diabetes: <7.0 :29 VITAMIN B-12 (CYANOCOBALAMIN) Comments: PATIENT WAS FASTINGPERFORMED BY: CB [facility] Istnhe7915 [address] RoadDublin [place] [id number] (57775) Vitamin B12 583 pg/mL (Normal) Range: 232-1245 :29 Vitamin D Hydroxy (40265) Comments: PATIENT WAS FASTINGPERFORMED BY: CB [facility] [id number] [address] RoadDublin [place] [id number] Vitamin D, 25-Hydroxy 54.1 ng/mL (Normal) Range: 30.0-100.0 Comments: Vitamin D deficiency has been defined by the [place] [facility] and an Endocrine Society practice guideline as alevel of serum 25-OH vitamin D less than 20 ng/mL (1,2).The Endocrine Society went on to further define vitamin Dinsufficiency as a level between 21 and 29 ng/mL (2).1. IOM ([place] of Medicine). 2010. Dietary reference intakes for calcium and D. [place]: The National Academies Press.2. Freddy MF, Pineda NC, Brody KHOURY, et al. Evaluation, treatment, and prevention of vitamin D deficiency: an Endocrine Society clinical practice guideline. JCEM. 2010; 96(7):1911-30. :29 LIPID PANEL (76087) Comments: PATIENT WAS FASTINGPERFORMED BY: CB [facility] Jvxzdi1339 Carrizales RoadDublin [place] [id number] LDL/HDL Ratio 2.4 {ratio} (Normal) Range: 0.0-3.2 Comments: LDL/HDL Ratio Men Women 1/2 Avg.Risk 1.0 1.5 Av g.Risk 3.6 3.2 2X Avg.Risk 6.2 5.0 3X Avg.Risk 8.0 6.1 LDL Cholesterol Calc 94 mg/dL (Normal) Range: 0-99 VLDL Cholesterol Alexander 28 mg/dL (Normal) Range: 5-40 HDL Cholesterol 40 mg/dL (Normal) Triglycerides 140 mg/dL (Normal) Range: 0-149 Cholesterol, Total 162 mg/dL (Normal) Range: 100-199 00-Vie-82951:29 METABOLIC PANEL, COMPREHENSIVE Comments: PATIENT WAS FASTINGPERFORMED BY: KAILA Wooboard.comkarlee KennedyAszkoy2175 [facility] [id number]; will discuss at aura 06/24 (11537) ALT (SGPT) 13 [iU]/L (Normal) Range: 0-32 [...] 8-27 Glucose 97 mg/dL (Normal) Range: 65-99 17-Eiu-236558:03 Microscopic Examination Comments: PATIENT WAS FASTINGPERFORMED BY: KAILA Wooboard.comkarlee Hardy70 [facility] [id number] Bacteria Few (Normal) Epithelial Cells (non renal) 0-10 {/hpf} (Normal) Range: 0 - 10 RBC None seen {/hpf} (Normal) Range: 0 - 2 WBC 0-5 {/hpf} (Normal) Range: 0 - 5 :03 URINALYSIS, W/ MICRO (49258) Comments: PATIENT WAS FASTINGPERFORMED BY: [employer] Ktvojv7755 [facility] [id number] Microscopic Examination See below: (Normal) Comments: Microscopic was indicated and was performed. Nitrite, Urine Negative (Normal) Urobilinogen,Semi-Qn 0.2 mg/dL (Normal) Range: 0.2-1.0 Bilirubin Negative (Normal) Occult Blood Negative (Normal) Ketones Negative (Normal) Glucose Negative (Normal) Protein Negative (Normal) WBC Esterase Trace (Abnormal) Appearance Clear (Normal) Urine-Color Yellow (Normal) pH 7.5 (Normal) Range: 5.0-7.5 Specific Aladdin 1.010 (Normal) Range: 1.005-1.030 17-Eji-481294:03 MICROALBUMIN: CREATININE RATIO Comments: PATIENT WAS FASTINGPERFORMED BY: Wooboard.comBacharach Institute for RehabilitationPsbybv2597 [facility] [id number] (64517) AND (03922) Alb/Creat Ratio <8.4 {mg/g_creat} (Normal) Range: 0.0-30.0 Albumin, Urine <3.0 ug/mL (Normal) Creatinine, Urine 35.9 mg/dL (Normal) 61-Tut-580693:03 CBC W/AUTO DIFF WBC (69275) Comments: PATIENT WAS FASTINGPERFORMED BY: Wooboard.comBacharach Institute for RehabilitationJnytye0393 [facility] [id number] Immature Grans (Abs) 0.0 {x10E3/uL} (Normal) Range: [...] 3.77-5.28 WBC 5.4 {x10E3/uL} (Normal) Range: 3.4-10.8 47-Egk-531531:03 METABOLIC PANEL, COMPREHENSIVE Comments: PATIENT WAS FASTINGPERFORMED BY: LabCoBacharach Institute for RehabilitationSybosk4571 [facility] [id number]; review on 03/13 (60690) ALT (SGPT) 13 [iU]/L (Normal) Range: 0-32 [...] 8-27 Glucose 104 mg/dL (Abnormal) Range: 65-99 27-Vko-642115:03 LIPID PANEL (87433) Comments: PATIENT WAS FASTINGPERFORMED BY: [employer] [facility] Efqloc0714 [facility] [place] [id number] LDL/HDL Ratio 2.5 {ratio} (Normal) Range: 0.0-3.2 Comments: LDL/HDL Ratio Men Women 1/2 Avg.Risk 1.0 1.5 Av g.Risk 3.6 3.2 2X Avg.Risk 6.2 5.0 3X Avg.Risk 8.0 6.1 LDL Cholesterol Calc 112 mg/dL (Abnormal) Range: 0-99 VLDL Cholesterol Alexander 22 mg/dL (Normal) Range: 5-40 HDL Cholesterol 44 mg/dL (Normal) Triglycerides 108 mg/dL (Normal) Range: 0-149 Cholesterol, Total 178 mg/dL (Normal) Range: 100-199 01-Miv-762477:03 VITAMIN B-12 (CYANOCOBALAMIN) Comments: PATIENT WAS FASTINGPERFORMED BY: [employer] [facility] Eoppfu5553 [facility] [place] [id number] (97322) Vitamin B12 453 pg/mL (Normal) Range: 232-1245 13-Hkd-906902:06 Vitamin D Hydroxy (99263) Comments: PATIENT WAS FASTINGPERFORMED BY: [employer] [facility] Vkzvxe8882 [facility] [place] [id number] Vitamin D, 25-Hydroxy 69.0 ng/mL (Normal) Range: 30.0-100.0 Comments: Vitamin D deficiency has been defined by the [place] of[place]icine and an Endocrine Society practice guideline as alevel of serum 25-OH vitamin D less than 20 ng/mL (1,2).The Endocrine Society went on to further define vitamin Dinsufficiency as a level between 21 and 29 ng/mL (2).1. IOM ([place] of Medicine). 2010. Dietary reference intakes for calcium and D. [place]: The National Academies Press.2. Freddy MF, Pineda EUBANKS, Brody KHOURY, et al. Evaluation, treatment, and prevention of vitamin D deficiency: an Endocrine Society clinical practice guideline. JCEM. 2010; 96(7):1911-30. 50-Eab-029909:06 VITAMIN B-12 (CYANOCOBALAMIN) Comments: PATIENT WAS FASTINGPERFORMED BY: [employer] [place] [id number] (72819) Vitamin B12 519 pg/mL (Normal) Range: 232-1245 58-Qex-819774:06 LIPID PANEL (49170) Comments: PATIENT WAS FASTINGPERFORMED BY: [employer] [id number] LDL/HDL Ratio 2.5 {ratio_units} (Normal) Range: 0.0-3.2 Comments: LDL/HDL Ratio Men Women 1/2 Avg.Risk 1.0 1.5 Av g.Risk 3.6 3.2 2X Avg.Risk 6.2 5.0 3X Avg.Risk 8.0 6.1 LDL Cholesterol Calc 100 mg/dL (Abnormal) Range: 0-99 VLDL Cholesterol Alexander 25 mg/dL (Normal) Range: 5-40 HDL Cholesterol 40 mg/dL (Normal) Triglycerides 127 mg/dL (Normal) Range: 0-149 Cholesterol, Total 165 mg/dL (Normal) Range: 100-199 52-Uwb-284101:06 METABOLIC PANEL, COMPREHENSIVE Comments: PATIENT WAS FASTINGPERFORMED BY: [employer] [place] [id number]; review at 11/13 appt (27360) ALT (SGPT) 12 [iU]/L (Normal) Range: 0-32 [...] Glucose, Serum 91 mg/dL (Normal) Range: 65-99 18-Rrw-49281:58 CBC W/Diff, Automated Comments: [facility] Trbinzjfdq[address] [place], [place], [id number] Absolute Lymph 1.41 {X10_3/ul} (Normal) Range: 0.83-4.51 [...] (Normal) Range: 4.4-11.0 :58 Hemoglobin A1c Comments: [facility] Dxcfhxnssa7882 [facility]. [place], [place], [id number] HGB A1C 5.7 % (Normal) Range: 4.2-6.3 98-Kuv-426432:09 Fecal Occult Blood , Office (Inhouse) (02289) Fecal Occult Blood , Office (Inhouse) Negative (Normal) Comments: error 2-Tmd-432907:07 Basic Metabolic Profile (BMP) Comments: [facility] Nyiwdbajcv6736 [facility]. [place], [place], [address] GAP 10 (Normal) Range: 5-15 CO2 27.0 [...] 7-18 GLU 98 mg/dL (Normal) Range: 70-110 1-Mgy-970506:07 CBC-Complete Blood Cnt No Diff Comments: [facility] Rkkeovcpao0043 [address] [place], [place], [address] MPV 10.8 fL (Normal) Range: 6.2-12.0 PLT [...] 4.2-5.4 WBC 6.2 K/mm3 (Normal) Range: 4.4-11.0 22-Qdy-821649:25 HgA1C , Office (85646) HgA1C , Office 5.6 % (Normal) Range: 4.6 - 7.1 92-Trt-112143:25 Blood Glucose , Office (88732) Blood Glucose , Office 106 (Normal) 92-Zxm-738309:30 VITAMIN B-12 Comments: PATIENT WAS FASTINGPERFORMED BY: vpod.tv[address] [id number] BY: [employer] Nwwimg5881 [facility] [id number] (CYANOCOBALAMIN) (88323) Vitamin B12 511 pg/mL (Normal) Range: 211-946 37-Cvp-630102:30 MICROALBUMIN: CREATININE Comments: PATIENT WAS FASTINGPERFORMED BY: vpod.tvton1447 [facility] [id number] BY: Wooboard.comBacharach Institute for RehabilitationXyudsm4271 [facility] [id number] RATIO (57160) AND (59498) Microalb/Creat Ratio 7.0 {mg/g_creat} (Normal) Range: 0.0-30.0 Microalbumin, Urine 3.6 ug/mL (Normal) Creatinine, Urine 51.4 mg/dL (Normal) 27-Mxc-904156:30 CBC W/AUTO DIFF WBC Comments: PATIENT WAS FASTINGPERFORMED BY: [employer] Sezgxzrwar9045 [facility] [id number] BY: [employer] Qkbort3550 [facility] [id number] (79763) Immature Grans (Abs) 0.0 {x10E3/uL} (Normal) Range: [...] 3.77-5.28 WBC 6.1 {x10E3/uL} (Normal) Range: 3.4-10.8 52-Tnf-846265:30 METABOLIC PANEL, Comments: PATIENT WAS FASTINGPERFORMED BY: LabCoSecretBuildersZiwfqofhuv7967 [facility] [id number] BY: LabCoBacharach Institute for RehabilitationNobfba2922 [facility] [id number] [facility] (85615) ALT (SGPT) 13 [iU]/L (Normal) Range: 0-32 [...] Glucose, Serum 102 mg/dL (Abnormal) Range: 65-99 23-Zsh-650077:30 LIPOPROTEIN, BLD, BY NMR Comments: PATIENT WAS FASTINGPERFORMED BY: [facility] Nvlowjfzvq3780 [facility] [id number] BY: KAILA [facility] Bohdsj7313 Sofie [facility] [id number]; non-emergent till apt (56463) LP-IR Score 60 (Abnormal) Comments: INSULIN RESISTANCE MARKER <--Insulin Sensitive Insulin Resistant--> Percentile in Reference PopulationInsulin Resistance ScoreLP-IR Score Low 25th 50th 75th High <27 27 45 63 >63LP-IR Score is inaccurate if patient is non-fasting. .The LP-IR score is a laboratory developed [facility] that has beenassociated with insulin resistance and [...] 1600 - 2000 Very High > 2000 20-Jeo-310927:47 Urinalysis, Office (70702) UA - LEUKOCYTE ESTERASE Small (Normal) UA - NITRITE Negative (Normal) URINE UROBILINGN KOLBY TIMED Normal mg/dL (Normal) UA - PROTEIN Negative mg/dL (Normal) UA - PH 6.5 (Normal) UA - BLOOD Negative (Normal) UA - SPECIFIC GRAVITY 1.015 (Normal) UA - KETONES Negative mg/dL (Normal) UA - BILIRUBIN Negative (Normal) UA - GLUCOSE Negative (Normal) 94-Paa-739008:42 URINE TEA CULTURE-IDENTIFICATN Comments: PATIENT NOT FASTINGPERFORMED BY: Wooboard.comBacharach Institute for RehabilitationAisgno3483 [facility] [id number] Information: SRC:UC (83986) Result 1 MUG (Normal) Comments: Mixed urogenital flora25,000-50,000 colony forming units per mL Urine Final report (Normal) Culture,Comprehensive 99-Oip-357371:25 HgA1C , Office (19707) HgA1C , Office 5.4 % (Normal) Range: 4.6 - 7.1 37-Amm-379356:31 MICROALBUMIN: CREATININE Comments: PATIENT WAS FASTINGPERFORMED BY: LabCo[address] [id number] BY: LabChongqing Jielai CommunicationBacharach Institute for RehabilitationTakzvm5258 [facility] [id number] RATIO (59824) AND (29485) Microalb/Creat Ratio 77.7 {mg/g_creat} (Abnormal) Range: 0.0-30.0 Microalbumin, Urine 30.3 ug/mL (Normal) Creatinine, Urine 39.0 mg/dL (Normal) 15-Sdk-567391:31 CBC, PLATELETS & AUT DIFF Comments: PATIENT WAS FASTINGPERFORMED BY: Woob[employer].com[address] [id number] BY: [employer] Rmjqkn9872 Sofie [facility] [id number] (15519) Immature Grans (Abs) 0.0 {x10E3/uL} (Normal) Range: [...] 3.77-5.28 WBC 5.7 {x10E3/uL} (Normal) Range: 3.4-10.8 92-Oxv-930506:31 VITAMIN B-12 Comments: PATIENT WAS FASTINGPERFORMED BY: Wooboard.com[address] [id number] BY: LabCoBacharach Institute for RehabilitationBrjxoi8714 [facility] [id number] (CYANOCOBALAMIN) (93408) Vitamin B12 604 pg/mL (Normal) Range: 211-946 63-Ajn-245293:31 METABOLIC PANEL, Comments: PATIENT WAS FASTINGPERFORMED BY: LabCo[address] [id number] BY: LabCoBacharach Institute for RehabilitationGezwyr3188 [facility] [id number] COMPREHENSIVE (55701) ALT (SGPT) 22 [iU]/L (Normal) Range: 0-32 [...] Glucose, Serum 101 mg/dL (Abnormal) Range: 65-99 99-Jav-551749:31 LIPOPROTEIN, BLD, BY NMR Comments: PATIENT WAS FASTINGPERFORMED BY: BN [facility] Wlhdhnatcz2239 [facility] [id number] BY: CB [facility] Dywhsk3148 [facility] [id number] (44705) LP-IR Score 72 (Abnormal) Comments: INSULIN RESISTANCE MARKER <--Insulin Sensitive Insulin Resistant--> Percentile in Reference PopulationInsulin Resistance ScoreLP-IR Score Low 25th 50th 75th High <27 27 45 63 >63LP-IR Score is inaccurate if patient is non-fasting. .The LP-IR score is a laboratory developed i [facility] that has beenassociated with insulin resistance and [...] 1600 - 2000 Very High > 2000 7-Pei-561368:22 HGB A1C (01856) Comments: PATIENT WAS FASTINGPERFORMED BY: [employer] [address] [id number] BY: ValconFormerly [facility] [id number] Hemoglobin A1c 5.8 % (Abnormal) Range: 4.8-5.6 Comments: . Pre-diabetes: 5.7 - 6.4 Diabetes: >6.4 Glycemic control for adults with diabetes: <7.0 9-Vsc-902550:22 VITAMIN B-12 (CYANOCOBALAMIN) Comments: PATIENT WAS FASTINGPERFORMED BY: [employer] [address] [id number] BY: ValconFormerly [facility] [id number] (23845) Vitamin B12 511 pg/mL (Normal) Range: 211-946 6-Mts-860083:22 CBC W/AUTO DIFF WBC Comments: PATIENT WAS FASTINGPERFORMED BY: [employer] [address] [id number] BY: Break Medialin6370 [employer] [facility] [id number] (28574) Immature Grans (Abs) 0.0 {x10E3/uL} (Normal) Range: [...] 3.77-5.28 WBC 5.9 {x10E3/uL} (Normal) Range: 3.4-10.8 5-Adq-523652:22 METABOLIC PANEL, Comments: PATIENT WAS FASTINGPERFORMED BY: [facility] [address] [id number] BY: [facility] Sjiywj2120 [facility] [id number] COMPREHENSIVE (85407) ALT (SGPT) 18 [iU]/L (Normal) Range: 0-32 [...] Glucose, Serum 92 mg/dL (Normal) Range: 65-99 0-Axt-736604:22 LIPOPROTEIN, BLD, BY NMR Comments: PATIENT WAS FASTINGPERFORMED BY: BN [facility] [address] [id number] BY: CB [facility] Ppxlig6589 [facility] [id number]; non-emergent till apt (33377) LP-IR Score 73 (Abnormal) Comments: INSULIN RESISTANCE MARKER <--Insulin Sensitive Insulin Resistant--> Percentile in Reference PopulationInsulin Resistance ScoreLP-IR Score Low 25th 50th 75th High <27 27 45 63 >63LP-IR Score is inaccurate if patient is non-fasting. .The LP-IR score is a laboratory developed i [facility] that has beenassociated with insulin resistance and [...] were developed and their performance characteristicsdetermined by [employer]. These assays have not been cleared by [...] 1600 - 2000 Very High > 2000 2-Icu-526735:22 Vitamin D Hydroxy Comments: PATIENT WAS FASTINGPERFORMED BY: BN LabChongqing Jielai Communication[address] [id number] BY: CB LabCoBacharach Institute for RehabilitationPrgzmh8844 [facility] [id number] (97956) Vitamin D, 25-Hydroxy 59.7 ng/mL (Normal) Range: 30.0-100.0 Comments: Vitamin D deficiency has been defined by the [place] of[place]icine and an Endocrine Society practice guideline as alevel of serum 25-OH vitamin D less than 20 ng/mL (1,2).The Endocrine Society went on to further define vitamin Dinsufficiency as a level between 21 and 29 ng/mL (2).1. IOM ([place] of Medicine). 2010. Dietary reference intakes for calcium and D. [place]: The National Academies Press.2. Freddy MF, Pineda NC, Brody KHOURY, et al. Evaluation, treatment, and prevention of vitamin D deficiency: an Endocrine Society clinical practice guideline. JCEM. 2010; 96(7):1911-30. :37 HgA1C , Office (39424) HgA1C , Office 5.6 % (Normal) Range: 4.6 - 7.1 :25 Lipid Panel With LDL/HDL Comments: PATIENT NOT FASTINGPERFORMED BY: [employer] Ibgrxe2796 [facility] [id number] Information: [id number] Ratio LDL/HDL Ratio 2.4 {ratio_units} Range: 0.0-3.2 [...] WAR (Normal) Comments: PATIENT NOT FASTINGPERFORMED BY: [employer] Fashions and AccessoriesHenry Ford Jackson Hospital6370 [facility] [id number] 0:25 Comments: Written Authorization Received.Authorization received from KINDRA VARGAS [id number] by Madie Huynh 8-Kbq-582674:24 Vitamin D Hydroxy (64834) Comments: PATIENT WAS FASTINGPERFORMED BY: [facility] Btdcdl1913 [facility] [id number] Vitamin D, 25-Hydroxy 32.9 ng/mL (Normal) Range: 30.0-100.0 Comments: Vitamin D deficiency has been defined by the [place] of[place]icine and an Endocrine Society practice guideline as alevel of serum 25-OH vitamin D less than 20 ng/mL (1,2).The Endocrine Society went on to further define vitamin Dinsufficiency as a level between 21 and 29 ng/mL (2).1. IOM ([place] Medicine). 2010. Dietary reference intakes for calcium and D. [place]: The National Academies Press.2. Freddy MF, Pineda NC, Brody KHOURY, et al. Evaluation, treatment, and prevention of vitamin D deficiency: an Endocrine Society clinical practice guideline. JCEM. 2010; 96(7):1911-30. 5-Acr-879291:24 METABOLIC PANEL, COMPREHENSIVE Comments: PATIENT WAS FASTINGPERFORMED BY: LabCoTsaile Health CenterPbvtbk9434 [facility] [id number] (86148) ALT (SGPT) 12 [iU]/L (Normal) Range: 0-32 [...] Glucose, Serum 109 mg/dL (Abnormal) Range: 65-99 9-Rzp-187528:24 CBC W/AUTO DIFF WBC Comments: PATIENT WAS FASTINGPERFORMED BY: LabCoBacharach Institute for RehabilitationQaugmf7243 [facility] [id number] Information: [id number] (40487) Immature Grans (Abs) 0.0 {x10E3/uL} (Normal) Range: [...] Comments: 1 month; PATIENT NOT FASTINGPERFORMED BY: [employer] Fashions and AccessoriesOscar [place] 6361570 [facility] [id number] Information: [id number] (84347) Vitamin B12 1403 pg/mL (Abnormal) Range: 211-946 40-Sez-672322:53 CBC, PLATELETS & AUT DIFF Comments: PATIENT NOT FASTINGPERFORMED BY: [employer].comSusan [place] 4569670 [facility] [id number] Information: [id number] (94182) Immature Grans (Abs) 0.0 {x10E3/uL} (Normal) Range: [...] B-12 (CYANOCOBALAMIN) Comments: PATIENT NOT FASTINGPERFORMED BY: [employer]6370 [address] GlycomindsFormerly [facility] [id number] (84975) Vitamin B12 298 pg/mL (Normal) Range: 211-946 :53 TSH (78678) Comments: PATIENT NOT FASTINGPERFORMED BY: [employer] [facility] Hrdgvf5397 [address] [facility]in [place] [id number] TSH 2.590 {uIU/mL} (Normal) Range: 0.450-4.500 :53 LIPID PANEL (23490) Comments: PATIENT NOT FASTINGPERFORMED BY: [employer] [facility] Umduxw7084 [address] [facility] [id number] LDL/HDL Ratio 2.5 {ratio_units} (Normal) Range: 0.0-3.2 [...] (Normal) Range: 100-199 :37 HgA1C , Office (22234) HgA1C , Office 5.8 % (Normal) Range: 4.6 - 7.1 21-Tnt-184861:13 Vitamin D Hydroxy (06438) Comments: PATIENT WAS FASTINGPERFORMED BY: Rooks Fashions and AccessoriesHenry Ford Jackson Hospital6370 [facility] [id number] Vitamin D, 25-Hydroxy 44.2 ng/mL (Normal) Range: 30.0-100.0 Comments: Vitamin D deficiency has been defined by the [place] of[place]icine and an Endocrine Society practice guideline as alevel of serum 25-OH vitamin D less than 20 ng/mL (1,2).The Endocrine Society went on to further define vitamin Dinsufficiency as a level between 21 and 29 ng/mL (2).1. IOM ([place] of Medicine). 2010. Dietary reference intakes for calcium and D. [place]: The National Academies Press.2. Freddy MF, Pineda EUBANKS, Brody KHOURY, et al. Evaluation, treatment, and prevention of vitamin D deficiency: an Endocrine Society clinical practice guideline. JCEM. 2010; 96(7):1911-30. 95-Txu-372279:13 METABOLIC PANEL, Comments: PATIENT WAS FASTINGPERFORMED BY: [facility]North[facility] Icwfyt6546 [facility] [id number] Information: [id number] COMPREHENSIVE (25549) ALT (SGPT) 11 [iU]/L (Normal) Range: 0-32 [...] Glucose, Serum 92 mg/dL (Normal) Range: 65-99 83-Pgu-984696:13 LIPID PANEL (18942) Comments: PATIENT WAS FASTINGPERFORMED BY: [employer]70 [place] etoECU [facility] [id number] LDL/HDL Ratio 3.6 {ratio_units} (Abnormal) Range: 0.0-3.2 [...] Cholesterol, Total 193 mg/dL (Normal) Range: 100-199 74-Aoe-27474:39 HgA1C , Office (11860) HgA1C , Office 6.2 % (Normal) Range: 4.6 - 7.1 40-Dom-189523:03 URINE TEA CULTURE-IDENTIFICATN Comments: PATIENT NOT FASTINGPERFORMED BY: [employer] Spenpb9571 [facility] [id number] Information: [id number] (43859) Antimicrobial MIHEAD (Normal) Comments: S = Susceptible; [...] Final report Culture,Comprehensive (Abnormal) :11 Urinalysis, Office (15185) UA - LEUKOCYTE ESTERASE Small (Normal) UA - NITRITE Negative (Normal) URINE UROBILINGN KOLBY TIMED Normal mg/dL (Normal) UA - PROTEIN Negative mg/dL (Normal) UA - PH 7 (Normal) UA - BLOOD Negative (Normal) UA - SPECIFIC GRAVITY 1.015 (Normal) UA - KETONES Negative mg/dL (Normal) UA - BILIRUBIN Negative (Normal) UA - GLUCOSE Negative (Normal) 82-Nip-614502:42 Urine Culture,Comprehensive Comments: PATIENT NOT FASTINGPERFORMED BY: Attentive.lyECU Health [facility]pl[facility] Hospital [id number] Information: SRC:[facility] [id number] Antimicrobial MIHEAD (Normal) Comments: S = Susceptible; [...] Panel (14) Comments: PATIENT WAS FASTINGPERFORMED BY: Attentive.lyECU Health [facility] Hospital [id number] Information: [id number] ALT (SGPT) 12 [iU]/L (Normal) Range: 0-32 [...] % (Normal) Comments: PATIENT WAS FASTINGPERFORMED BY: [employer] [facility] [id number] Range: 4.8-5.6 Comments: . Increased risk for diabetes: 5.7 - 6.4 Diabetes: >6.4 Glycemic control for adults with diabetes: <7.0 :42 Lipid Panel With LDL/HDL Comments: PATIENT WAS FASTINGPERFORMED BY: [employer] Carrizales [facility] [id number] Ratio LDL/HDL Ratio 2.9 {ratio_units} (Normal) Range: [...] Cholesterol, Total 180 mg/dL (Normal) Range: 100-199 21-Xuy-845950:22 Urine Culture,Comprehensive Comments: PATIENT NOT FASTINGPERFORMED BY: [employer] frestyl [facility] HospitalDuolingoECU Health [facility] [id number] Information: [id number] Result 1 BETAGB (Abnormal) Comments: Beta hemolytic [...] (CLSI 2011) Urine Final report (Abnormal) Culture,Comprehensive 96-Llb-19472:43 Urinalysis, Office (38581) UA - LEUKOCYTE ESTERASE Small (Normal) UA [...] CREATININE RATIO Comments: PATIENT WAS FASTINGPERFORMED BY: [employer] Nybbjd5714 [facility] [id number] (13040) AND (11579) Microalb/Creat Ratio 5.2 {mg/g_creat} (Normal) Range: 0.0-30.0 Microalbumin, Urine 6.5 ug/mL (Normal) Range: 0.0-17.0 Creatinine, Urine 125.1 mg/dL (Normal) Range: 15.0-278.0 :43 Vitamin D Hydroxy (12856) Comments: PATIENT WAS FASTINGPERFORMED BY: [facility]6370 [facility] [id number] Vitamin D, 25-Hydroxy 56.5 ng/mL (Normal) Range: 30.0-100.0 Comments: Vitamin D deficiency has been defined by the [place] of[place]icine and an Endocrine Society practice guideline as alevel of serum 25-OH vitamin D less than 20 ng/mL (1,2).The Endocrine Society went on to further define vitamin Dinsufficiency as a level between 21 and 29 ng/mL (2).1. IOM ([place] of Medicine). 2010. Dietary reference intakes for calcium and D. [place]: The National Academies Press.2. Freddy MF, Pineda NC, Brody KHOURY, et al. Evaluation, treatment, and prevention of vitamin D deficiency: an Endocrine Society clinical practice guideline. JCEM. 2010; 96(7):1911-30. :43 CBC W/AUTO DIFF WBC Comments: PATIENT WAS FASTINGPERFORMED BY: [facility]6370 [facility] [facility] [id number] Information: [id number] (32226) Immature Grans (Abs) 0.0 {x10E3/uL} (Normal) Range: [...] 3.77-5.28 WBC 5.6 {x10E3/uL} (Normal) Range: 3.4-10.8 :43 METABOLIC PANEL, COMPREHENSIVE Comments: PATIENT WAS FASTINGPERFORMED BY: LabCoBacharach Institute for RehabilitationPfexia1555 [facility] [id number] (77966) ALT (SGPT) 15 [iU]/L (Normal) Range: 0-32 [...] Glucose, Serum 89 mg/dL (Normal) Range: 65-99 30-Oct-20149:43 LIPID PANEL (72810) Comments: PATIENT WAS FASTINGPERFORMED BY: LabCoBacharach Institute for RehabilitationBxfbqf3037 [facility] [id number] LDL/HDL Ratio 1.7 {ratio_units} (Normal) Range: 0.0-3.2 [...] Cholesterol, Total 149 mg/dL (Normal) Range: 100-199 10-Atv-033636:55 Anticardiolip Ab, IgA/G/M, Comments: PATIENT NOT FASTINGPERFORMED BY: [facility] Vquewz5031 [facility] [id number] BY: BN [facility] [address] [id number] BY: TG [facility] Qn AJN8865 [facility] [id number] Anticardiolipin Ab,IgA,Qn <9 {APL_U/mL} (Normal) Range: 0-11 [...] Positive: >20 - 80 High Positive: >80 66-Rtw-338797:55 Antinuclear Antibodies Comments: PATIENT NOT FASTINGPERFORMED BY: CB [facility] Klyzks5785 [address]rizales RoadDublin [place] [id number] BY: [facility] [address] [id number] BY: TG [facility] Direct YLN2857 [facility] [id number] SURI Direct Negative (Normal) :55 Antithrombin III, Comments: PATIENT NOT FASTINGPERFORMED BY: CB [facility] Cnzvlq6485 Carrizales RoadDublin [place] [id number] BY: [facility] [address] [id number] BY: TG [facility] Func/Immunol CHA5998 [facility] [id number] Antithrombin Antigen 85 % (Normal) Range: 75-130 Antithrombin Activity 100 % (Normal) Range: 75-135 C-Reactive Protein, <0.3 mg/L (Normal) Comments: PATIENT NOT FASTINGPERFORMED BY: CB [facility] Rpbvwf0779 [address]rizales RoadDublin [place] [id number] BY: [facility] [address] [id number] BY: TG [facility] 2:55 Quant [id number] [facility] [id number] Range: 0.0-4.9 Factor II Activity 88 % (Normal) Comments: PATIENT NOT FASTINGPERFORMED BY: CB [facility] Decsxu4591 [address] RoadDublin [place] [id number] BY: [facility] [address] [id number] BY: TG [facility] 2:55 ZXN2861 [facility] [id number] Range: 75-130 84-Rgr-719854:55 Factor V Leiden Mutation Comments: PATIENT NOT FASTINGPERFORMED BY: CB [facility] Fgaeys0951 [place] [id number] BY: BN [facility] Nrdzwuupjt5136 [place] [id number] BY: TG [facility] LKB8842 [address]RTP [place] [id number] Factor V Leiden FVNEG3 (Normal) Comments: Result: [...] in the workup for venous thrombosis include [id number] mutation in the factor II (prothrombin) gene,protein S and C deficiency, and antithromb in deficiencies.Anticardiolipin antibody and lupus anticoagulant analysismay be appropriate for certain patients, as well ashomocysteine levels. .Contact your local [facility] for information on how to orderadditional testing if desired. .Genetic counselors are available for health care* providers to discuss results at [phone] [phone] .Methodology:DNA analysis of the Factor V gene was performed by allele-specific PCR followed by gel electrophoresis. The diagnosticsensitivity and specificity is >99% for both. Molecular-based testing is highly accurate, but as in any laboratorytest, diagnostic errors may occur. All test results must becombined with clinical information for the most accurateinterpretation. .References:Katharine Lew (1996). Clin Lab Med 16: 169-186. .Korey Mcacll, PhDMauricio Guerrero PhDMichaela Owusu PhDDorothy M Adcock, MDVal V Zvereff, MD, PhDS MARQUISE Gonsales, PhD . 55-Vwl-061626:55 Protein C Deficiency Comments: PATIENT NOT FASTINGPERFORMED BY: CB [facility] Cemyyq4658 [address] [facility] [id number] BY: [facility] [address] [id number] BY: TG [facility] Profile FHV5974 [facility] [id number] Protein C-Functional 134 % (Normal) Range: 74-151 Protein C Antigen 97 % (Normal) Range: 70-140 57-Qqi-466696:55 Protein Electro, Random Comments: PATIENT NOT FASTINGPERFORMED BY: CB [facility] Gmoejn2223 [facility] [id number] BY: [facility] [address] [id number] BY: Be[employer] LabKangaDo Urine DRH2389 [facility] [id number] Please note: SPRCS (Normal) Comments: Protein electrophoresis scan will follow via computer, mail, orcourier delivery. M-Peter, % Not Observed % (Normal) Gamma Globulin, U 18.3 % (Normal) Beta Globulin, U 24.9 % (Normal) Etzbm-7-Gtpqchmh, U 17.0 % (Normal) Iygtb-4-Wwbcvkxe, U 6.3 % (Normal) Albumin, U 33.5 % (Normal) Protein,Total,Urine 5.6 mg/dL (Normal) Range: 0.0-15.0 :55 Protein Electro.,S Comments: PATIENT NOT FASTINGPERFORMED BY: [employer] [facility] Geoppg8308 [facility] [id number] BY: LabChongqing Jielai Communicationrp [address] [id number] BY: [facility] IDE6969 [facility] [id number] Please note: SPRCS (Normal) Comments: Protein electrophoresis scan will follow via computer, mail, orcourier delivery. A/G Ratio 1.5 (Normal) Range: 0.7-2.0 Globulin, Total 2.7 g/dL (Normal) Range: 2.0-4.5 M-Peter Not Observed g/dL (Normal) Gamma Globulin 1.0 g/dL (Normal) Range: 0.5-1.6 Beta Globulin 0.9 g/dL (Normal) Range: 0.6-1.3 Ztpqj-7-Glzejutq 0.6 g/dL (Normal) Range: 0.4-1.2 Zznbb-1-Ydbhofzo 0.2 g/dL (Normal) Range: 0.1-0.4 Albumin 4.1 g/dL (Normal) Range: 3.2-5.6 Protein, Total, Serum 6.8 g/dL (Normal) Range: 6.0-8.5 89-Eck-231952:55 Protein S Panel Comments: PATIENT NOT FASTINGPERFORMED BY: KAILA [facility] Qzqrku8359 [facility] HospitalDuolingoECU Health [facility] [id number] BY: LabCo[address] [id number] BY: [facility] QCD3948 [facility] [id number] Protein S-Functional 100 % (Normal) Range: 60-145 Protein S, Free 112 % (Normal) Range: 56-124 Protein S, Total 120 % (Normal) Range: 58-150 15-Qyw-012689:55 Rheumatoid Arthritis Comments: PATIENT NOT FASTINGPERFORMED BY: [facility] Phqmdy6204 [facility] [id number] BY: [facility] [address] [id number] BY: [facility] HGY9797 [facility] [id number] RA Latex Turbid. 6.4 {IU/mL} Range: 0.0-13.9 (Normal) 15-Bky-90731 Sedimentation 5 mm/h (Normal) Comments: PATIENT NOT FASTINGPERFORMED BY: CB [facility] Vpohnn8027 [facility] HospitalDuolingoECU Health [facility] [id number] BY: LabCo[address] [id number] BY: [facility] 2:55 Rate-Westergren GTJ3025 [facility] [place] [id number] Range: 0-40 1-Otg-114139:10 Vitamin D Hydroxy (25442) Comments: PATIENT NOT FASTINGPERFORMED BY: [facility] Fvwdcr5229 [address] [facility]blin [place] [id number] Vitamin D, 25-Hydroxy 56.5 ng/mL (Normal) Range: 30.0-100.0 Comments: Vitamin D deficiency has been defined by the [place] of[place] and an Endocrine Society practice guideline as alevel of serum 25-OH vitamin D less than 20 ng/mL (1,2).The Endocrine Society went on to further define vitamin Dinsufficiency as a level between 21 and 29 ng/mL (2).1. IOM ([place] of Medicine). 2010. Dietary reference intakes for calcium and D. [place]: The National Academies Press.2. Freddy MF, Pineda EUBANKS, Brody KHOURY, et al. Evaluation, treatment, and prevention of vitamin D deficiency: an Endocrine Society clinical practice guideline. JCEM. 2010; 96(7):1911-30. 4-Rml-407498:10 VITAMIN B-12 (CYANOCOBALAMIN) Comments: PATIENT NOT FASTINGPERFORMED BY: [employer]ions and AccessoriesCorp Fbrjun7786 [address] [facility] [id number] (49222) Vitamin B12 455 pg/mL (Normal) Range: 211-946 3-Urz-064191:10 TSH (23197) Comments: PATIENT NOT FASTINGPERFORMED BY: [facility] Hrdrdc7710 [facility] [id number] TSH 1.870 {uIU/mL} (Normal) Range: 0.450-4.500 5-Ynx-779197:10 EBV Panel (42101) Comments: PATIENT NOT FASTINGPERFORMED BY: CB [facility] Mlqnaf1933 [facility] Centerin [place] [id number] Information: [id number] Interpretation: SPRCS (Normal) Comments: EBV Interpretation Chart [...] 43.9 Positive >43.9 :47 HgA1C , Office (86415) HgA1C , Office 5.8 % (Normal) Range: 4.6 - 7.1 50-Uaw-726482:38 Microscopic Examination Comments: PATIENT WAS FASTINGPERFORMED BY: [employer] [facility] Kzzweb9031 [facility] [id number] Bacteria Few (Normal) Mucus Threads Present (Normal) Epithelial Cells (non renal) 0-10 {/hpf} (Normal) Range: 0 - 10 RBC None seen {/hpf} (Normal) Range: 0 - 2 WBC 0-5 {/hpf} (Normal) Range: 0 - 5 94-Obx-534259:38 MICROALBUMIN: CREATININE RATIO Comments: PATIENT WAS FASTINGPERFORMED BY: [employer] [facility] Brybua2444 [facility] [id number] (39229) AND (28485) Creatinine, Urine 59.0 mg/dL (Normal) Range: 15.0-278.0 Microalb/Creat Ratio 8.3 {mg/g_creat} (Normal) Range: 0.0-30.0 Microalbumin, Urine 4.9 ug/mL (Normal) Range: 0.0-17.0 12-Vmn-020418:38 URINALYSIS, W/ MICRO (98143) Comments: PATIENT WAS FASTINGPERFORMED BY: LabCoBacharach Institute for RehabilitationEtwbol6666 [facility] [id number] Microscopic Examination MICRON (Normal) Comments: Microscopic follows if indicated. Microscopic Examination See below: (Normal) Comments: Microscopic was indicated and was performed. Nitrite, Urine Negative (Normal) Urobilinogen,Semi-Qn 0.2 mg/dL (Normal) Range: 0.0-1.9 Bilirubin Negative (Normal) Occult Blood Negative (Normal) Ketones Negative (Normal) Glucose Negative (Normal) Protein Negative (Normal) Appearance Clear (Normal) WBC Esterase Negative (Normal) pH 7.5 (Normal) Range: 5.0-7.5 Urine-Color Yellow (Normal) Specific Aladdin 1.016 (Normal) Range: 1.005-1.030 51-Uyo-752724:38 CBC WITH MANUAL DIFF Comments: PATIENT WAS FASTINGPERFORMED BY: LabCoBacharach Institute for RehabilitationKsbxyg8116 [facility] [id number] Information: [id number] (31238) Immature Grans (Abs) 0.0 {x10E3/uL} (Normal) Range: [...] {x10E3/uL} (Normal) Range: 3.4-10.8 :38 LIPID PANEL (52239) Comments: PATIENT WAS FASTINGPERFORMED BY: [employer] [facility] [id number] LDL/HDL Ratio 1.9 {ratio_units} (Normal) Range: 0.0-3.2 [...] PANEL, COMPREHENSIVE Comments: PATIENT WAS FASTINGPERFORMED BY: Break Medialin6370 [facility] [id number] (69324) ALT (SGPT) 12 [iU]/L (Normal) Range: 0-32 [...] Glucose, Serum 98 mg/dL (Normal) Range: 65-99 56-Zdg-314747:43 URINE TEA CULTURE (KOLBY Comments: PATIENT NOT FASTINGPERFORMED BY: [facility] Qxacln9590 [facility] [id number] Information: SRC:UR [id number] COL COUNT) (31649) Result 1 BETAGB (Abnormal) Comments: Beta hemolytic [...] (CLSI 2011) Urine Final report (Abnormal) Culture,Comprehensive 6-Uor-662652:47 Urinalysis, Office (75734) UA - LEUKOCYTE ESTERASE Small (Normal) UA - NITRITE Negative (Normal) URINE UROBILINGN KOLBY TIMED Normal mg/dL (Normal) UA - PROTEIN 30 mg/dL (Normal) UA - PH 5 (Abnormal) UA - BLOOD Negative (Normal) UA - SPECIFIC GRAVITY 1.025 (Normal) UA - KETONES Negative mg/dL (Normal) UA - BILIRUBIN Small (Normal) UA - GLUCOSE Negative (Normal) 2-Dkf-069428:43 HgA1C , Office (67550) HgA1C , Office 5.9 % (Normal) Range: 4.6 - 7.1 9-Hxh-372733:43 Blood Glucose , Office (76815) Blood Glucose , Office 137 (Normal) 0-Ysx-206720:00 URINE TEA CULTURE-IDENTIFICATN Comments: PATIENT NOT FASTINGPERFORMED BY: [facility] Fashions and AccessoriesHenry Ford Jackson Hospital6370 [facility] [id number] Information: [id number] (06219) Result 1 BETAGB (Abnormal) Comments: Beta hemolytic [...] been reportedfor Streptococcus pyogenes (group A). (CLSI 2010) Urine Final report (Abnormal) Culture,Comprehensive 2-Zys-082572:04 Urinalysis, Office (23852) UA - LEUKOCYTE ESTERASE Small (Normal) UA - NITRITE Negative (Normal) URINE UROBILINGN KOLBY TIMED Normal mg/dL (Normal) UA - PROTEIN Negative mg/dL (Normal) UA - PH 6.5 (Normal) UA - BLOOD non-hemolyzed trace (Normal) UA - SPECIFIC GRAVITY 1.015 (Normal) UA - KETONES Negative mg/dL (Normal) UA - BILIRUBIN Negative (Normal) UA - GLUCOSE Negative (Normal) 36-Dtq-114901:47 LIPID PANEL (75272) Comments: PATIENT WAS FASTINGPERFORMED BY: LabCoBacharach Institute for RehabilitationCzrrtf3998 [facility] [id number] LDL/HDL Ratio 2.0 {ratio_units} (Normal) Range: 0.0-3.2 LDL Cholesterol Calc 88 mg/dL (Normal) Range: 0-99 VLDL Cholesterol Alexander 19 mg/dL (Normal) Range: 5-40 HDL Cholesterol 45 mg/dL (Normal) Comments: According to ATP-III Guidelines, HDL-C >59 mg/dL is considered anegative risk factor for CHD. Cholesterol, Total 152 mg/dL (Normal) Range: 100-199 Triglycerides 95 mg/dL (Normal) Range: 0-149 02-Cyi-263271:47 CBC WITH MANUAL DIFF Comments: PATIENT WAS FASTINGPERFORMED BY: [employer] Xwsrto1397 [facility] [id number] Information: [id number],2ND ORDER NO DRAW F EE (98253) Immature Grans (Abs) 0.0 {x10E3/uL} (Normal) Range: [...] 3.77-5.28 WBC 5.8 {x10E3/uL} (Normal) Range: 3.4-10.8 14-Avx-631088:47 METABOLIC PANEL, COMPREHENSIVE Comments: PATIENT WAS FASTINGPERFORMED BY: Wooboard.comBacharach Institute for RehabilitationNdreni9433 [facility] [id number] (44875) ALT (SGPT) 16 [iU]/L (Normal) Range: 0-32 [...] Glucose, Serum 94 mg/dL (Normal) Range: 65-99 48-Dir-416912:13 URINE TEA CULTURE (KOLBY Comments: PATIENT NOT FASTINGPERFORMED BY: [facility] Btrbfi8869 [facility] [id number] Information: SRC:UR [id number] COL COUNT) (40178) Result 1 BETAGB (Abnormal) Comments: Beta hemolytic [...] been reportedfor Streptococcus pyogenes (group A). (CLSI 2010) Urine Final report (Abnormal) Culture,Comprehensive 33-Fkx-865494:11 Urinalysis, Office (71578) UA - LEUKOCYTE ESTERASE Small (Normal) UA - NITRITE Negative (Normal) URINE UROBILINGN KOLBY TIMED Normal mg/dL (Normal) UA - PROTEIN Negative mg/dL (Normal) UA - PH 7 (Normal) UA - BLOOD Non Hemolyzed Moderate (Normal) UA - SPECIFIC GRAVITY 1.015 (Normal) UA - KETONES Negative mg/dL (Normal) UA - BILIRUBIN Negative (Normal) UA - GLUCOSE Negative (Normal) 81-Oet-221915:47 Phosphorus (57750) Comments: 2 weeks; PATIENT NOT FASTINGPERFORMED BY: [employer]70 [facility] [id number] Information: [id number] Phosphorus, Serum 3.7 mg/dL (Normal) Range: 2.5-4.5 80-Umz-030292:36 URINE TEA CULTURE-IDENTIFICATN Comments: PATIENT NOT FASTINGPERFORMED BY: [employer] LabChongqing Jielai Communicationrp Vitnth8174 [facility] [id number] Information: SRC: URINE (94143) Result 1 BETAGB (Normal) Comments: Beta hemolytic [...] been reportedfor Streptococcus pyogenes (group A). (CLSI 2010) Urine Final report (Normal) Culture,Comprehensive 50-Hhu-642723:02 Urinalysis, Office (03997) UA - LEUKOCYTE ESTERASE Trace (Normal) UA - NITRITE Negative (Normal) URINE UROBILINGN KOLBY TIMED Normal mg/dL (Normal) UA - PROTEIN Negative mg/dL (Normal) UA - PH 7 (Normal) UA - BLOOD Negative (Normal) UA - SPECIFIC GRAVITY 1.010 (Normal) UA - KETONES Negative mg/dL (Normal) UA - BILIRUBIN Negative (Normal) UA - GLUCOSE Negative (Normal) 13-Dqa-852479:16 Microscopic Examination Comments: PATIENT NOT FASTINGPERFORMED BY: Wooboard.comBacharach Institute for RehabilitationHxzhsf3514 [facility] [id number] Bacteria Few (Normal) Mucus Threads Present (Normal) Epithelial Cells (non renal) 0-10 {/hpf} (Normal) Range: 0 - 10 RBC 0-3 {/hpf} (Normal) Range: 0 - 3 WBC 6-10 {/hpf} (Abnormal) Range: 0 - 5 36-Lkl-247343:45 Protein Electro, Random Urine Comments: PERFORMED BY: [employer] Oohhso2896 [facility] [id number] M-Peter, % Not Observed % (Normal) Please note: SPRCS (Normal) Comments: Protein electrophoresis scan will follow via computer, mail, orcourier delivery. Beta Globulin, U 27.1 % (Normal) Gamma Globulin, U 31.6 % (Normal) Ofrxb-3-Hzyscxpb, U 4.3 % (Normal) Kzinv-2-Grqfgkad, U 15.2 % (Normal) Albumin, U 21.8 % (Normal) Protein,Total,Urine 5.5 mg/dL (Normal) Range: 0.0-15.0 98-Jew-615297:45 Protein Electro.,S Comments: PERFORMED BY: [employer] Iijvyq5039 [facility] [id number] Please note: SPRCS (Normal) Comments: Protein electrophoresis scan will follow via computer, mail, orcourier delivery. A/G Ratio 1.6 (Normal) Range: 0.7-2.0 Globulin, Total 2.5 g/dL (Normal) Range: 2.0-4.5 Beta Globulin 0.8 g/dL (Normal) Range: 0.6-1.3 Gamma Globulin 0.9 g/dL (Normal) Range: 0.5-1.6 M-Peter Not Observed g/dL (Normal) Bznli-2-Twtlpjru 0.6 g/dL (Normal) Range: 0.4-1.2 Epahb-5-Lkmzapme 0.2 g/dL (Normal) Range: 0.1-0.4 Albumin 4.1 g/dL (Normal) Range: 3.2-5.6 Protein, Total, Serum 6.6 g/dL (Normal) Range: 6.0-8.5 87-Oig-590339:25 URINALYSIS, W/ MICRO Comments: PATIENT NOT FASTINGPERFORMED BY: [place] 4148870 [facility] [id number] Information: [id number] (83566) Microscopic Examination See below: (Normal) Nitrite, Urine Negative (Normal) Bilirubin Negative (Normal) Urobilinogen,Semi-Qn 0.2 mg/dL (Normal) Range: 0.0-1.9 Occult Blood Negative (Normal) Ketones Negative (Normal) Glucose Negative (Normal) Protein Negative (Normal) WBC Esterase Trace (Abnormal) Appearance Clear (Normal) Urine-Color Yellow (Normal) pH 6.5 (Normal) Range: 5.0-7.5 Specific Aladdin 1.019 (Normal) Range: 1.005-1.030 09-Ypk-258967:25 URINE TEA CULTURE (KOLBY COL Comments: PATIENT NOT FASTINGPERFORMED BY: [facility] Fashions and AccessoriesHenry Ford Jackson Hospital6370 [facility] [id number] COUNT) (12215) Result 1 BETAGB (Normal) Comments: Beta hemolytic [...] (CLSI 2011) Urine Final report (Normal) Culture,Comprehensive 8-Toy-886917:13 URINE CALCIUM KOLBY TIMED Comments: PATIENT NOT FASTINGPERFORMED BY: [facility]6370 [facility] [id number] Information: [id number], START TIME: 10-27-13 AT 9 AMEND TIME 10/28/13 AT 7 AM 24 Hour (07066) Calcium, Urine 24hr 199.5 {mg/24_hr} (Normal) Range: 100.0-300.0 Calcium, Urine 21.0 mg/dL (Normal) 85-Kkg-301011:15 PARATHORMONE (22870) Comments: PERFORMED BY: [employer]6370 [address] [facility] [id number] PTH, Intact 20 pg/mL (Normal) Range: 15-65 57-Ocg-086626:15 PHOSPHORUS (11688) Comments: PERFORMED BY: [employer] Firqrj6461 [address] [facility] [id number] Phosphorus, Serum 4.6 mg/dL (Abnormal) Range: 2.5-4.5 12-Lsf-420726:15 TSH (42832) Comments: PERFORMED BY: [facility]70 [address] [facility] [id number] TSH 2.710 {uIU/mL} (Normal) Range: 0.450-4.500 00-Wld-370849:57 FECAL OCCULT- Tubes sent home (68794) FECAL OCCULT HGB ASSAY, QUAL, 1-3 SIMULTANEOU negative (Normal) 99-Mfx-252169:50 HgA1C , Office (67303) HgA1C , Office 6.1 % (Normal) Range: 4.6 - 7.1 35-Sag-84837:26 LIPID PANEL (24330) Comments: PATIENT WAS FASTINGPERFORMED BY: [facility]70 [facility] [id number] LDL/HDL Ratio 2.1 {ratio_units} (Normal) Range: 0.0-3.2 [...] CREATININE RATIO Comments: PATIENT WAS FASTINGPERFORMED BY: [employer]6370 [address] [facility] [id number] (69077) AND (53464) Microalb/Creat Ratio 13.1 {mg/g_creat} (Normal) Range: 0.0-30.0 Creatinine, Urine 70.1 mg/dL (Normal) Range: 15.0-278.0 Microalbumin, Urine 9.2 ug/mL (Normal) Range: 0.0-17.0 :26 METABOLIC PANEL, Comments: PATIENT WAS FASTINGPERFORMED BY: [employer]70 Hochy etoECU Health [facility] Hospital [id number] Information: [id number] COMPREHENSIVE (95160) ALT (SGPT) 17 [iU]/L (Normal) Range: 0-32 [...] (Abnormal) Range: 65-99 :26 Vitamin D Hydroxy (83364) Comments: PATIENT WAS FASTINGPERFORMED BY: Attentive.lyECU Health Duplin Hospital [id number] Vitamin D, 25-Hydroxy 57.3 ng/mL (Normal) Range: 30.0-100.0 Comments: Vitamin D deficiency has been defined by the [place] of[place]icine and an Endocrine Society practice guideline as alevel of serum 25-OH vitamin D less than 20 ng/mL (1,2).The Endocrine Society went on to further define vitamin Dinsufficiency as a level between 21 and 29 ng/mL (2).1. IOM ([place] of Medicine). 2010. Dietary reference intakes for calcium and D. [place]: The National AcademGraphic [place] Press.2. Freddy MF, Pineda EUBANKS, Brody KHOURY, et al. Evaluation, treatment, and prevention of vitamin D deficiency: an Endocrine Society clinical practice guideline. JCEM. 2010; 96(7):1911-30. 6-Zby-128459:42 HgA1C , Office (22523) HgA1C , Office 5.6 % (Normal) Range: 4.6 - 7.1 33-Pzf-404651:17 METABOLIC PANEL, Comments: PATIENT WAS FASTINGPERFORMED BY: [facility] Kfedoh2964 [facility] [id number] Information: [id number] COMPREHENSIVE (81633) ALT (SGPT) 25 [iU]/L (Normal) Range: 0-32 [...] Glucose, Serum 94 mg/dL (Normal) Range: 65-99 54-Sia-695239:17 LIPID PANEL (57222) Comments: PATIENT WAS FASTINGPERFORMED BY: LabCoBacharach Institute for RehabilitationSbsuqo3051 [facility] [id number] LDL/HDL Ratio 1.9 {ratio_units} (Normal) Range: 0.0-3.2 LDL Cholesterol Calc 77 mg/dL (Normal) Range: 0-99 VLDL Cholesterol Alexander 24 mg/dL (Normal) Range: 5-40 HDL Cholesterol 40 mg/dL (Normal) Comments: According to ATP-III Guidelines, HDL-C >59 mg/dL is considered anegative risk factor for CHD. Triglycerides 119 mg/dL (Normal) Range: 0-149 Cholesterol, Total 141 mg/dL (Normal) Range: 100-199 95-Jik-225617:35 BILAT MARY JON DIGITAL & CAD Radiology Report See Note [...] CATEGORY:BIRADS Category 2: Benign finding(s). A letter regar reyna these resultswill be sent to the patient by the facility within 30 days. Approximately 10% of breast cancers are not detected by mammography. Anormal mammogram should not delay biopsy of a clinica lly suspiciousabnormality. Signed:Alvaro Bajwa M.D.May 20, 2013 at 7:25:00 AM [id number] Signed RU/RU If you are the referring physician and would like to consult with suzette maurer who provided this interpretation, please contact Julisa George at [phone]. If this radiologist is unavailable, youtuliollbe directed to another radiologist to assist. If you are a patien t with a question regarding this report, pleasecontactyour referring physician directly. Professional Interpretation Provided By: [employer], Phone , These documents conta in legally [...] Bajwa on 05/20/13726 Sign by: Alvaro Bajwa 1-Kay-799918:29 VITAMIN B-12 (CYANOCOBALAMIN) Comments: PATIENT NOT FASTINGPERFORMED BY: [facility]6370 [facility] [id number] (57841) Vitamin B12 395 pg/mL (Normal) Range: 211-946 5-Rvn-437614:29 TSH (50966) Comments: PATIENT NOT FASTINGPERFORMED BY: [facility] HospitalCoBacharach Institute for RehabilitationNbnyer1224 [facility] [id number] TSH 2.020 {uIU/mL} (Normal) Range: 0.450-4.500 3-Rwi-718211:29 CBC WITH MANUAL DIFF Comments: PATIENT NOT FASTINGPERFORMED BY: LabHenry Ford [facility] Hospital6370 [facility] [id number] Information: [id number] (41635) Immature Grans (Abs) 0.0 {x10E3/uL} (Normal) Range: [...] 3.77-5.28 WBC 7.6 {x10E3/uL} (Normal) Range: 4.0-10.5 5-Ygy-590719:29 EBV Panel (77883) Comments: PATIENT NOT FASTINGPERFORMED BY: [employer] frestyl [facility] [id number] Interpretation: SPRCS (Normal) Comments: EBV Interpretation Chart [...] <0.9 Equivocal 0.9 - 1.0 Positive >1.0 9-Cnx-736669:39 HgA1C , Office (31417) HgA1C , Office 6.2 % (Normal) Range: 4.6 - 7.1 81-Srb-661889:36 Vitamin D Hydroxy (78779) Comments: PATIENT WAS FASTINGPERFORMED BY: [facility]ook[facility] Fashions and AccessoriesHenry Ford Jackson Hospital6370 [facility] [id number] Vitamin D, 25-Hydroxy 64.3 ng/mL (Normal) Range: 30.0-100.0 Comments: Vitamin D deficiency has been defined by the [place] of[place]icine and an Endocrine Society practice guideline as alevel of serum 25-OH vitamin D less than 20 ng/mL (1,2).The Endocrine Society went on to further define vitamin Dinsufficiency as a level between 21 and 29 ng/mL (2).1. IOM ([place] of Medicine). 2010. Dietary reference intakes for calcium and D. [place]: The National Academies Press.2. Freddy MF, Pineda EUBANKS, Brody KHOURY, et al. Evaluation, treatment, and prevention of vitamin D deficiency: an Endocrine Society clinical practice guideline. JCEM. 2010; 96(7):1911-30. 35-Ykz-668271:36 METABOLIC PANEL, COMPREHENSIVE Comments: PATIENT WAS FASTINGPERFORMED BY: LabCoBacharach Institute for RehabilitationQcawfm4463 [facility] [id number] (48908) ALT (SGPT) 16 [iU]/L (Normal) Range: 0-32 [...] Glucose, Serum 96 mg/dL (Normal) Range: 65-99 48-Bce-002548:36 LIPID PANEL (67146) Comments: PATIENT WAS FASTINGPERFORMED BY: [employer] Fashions and AccessoriesHenry Ford Jackson Hospital6370 [facility] [id number] LDL/HDL Ratio 2.3 {ratio_units} (Normal) Range: 0.0-3.2 LDL Cholesterol Calc 86 mg/dL (Normal) Range: 0-99 VLDL Cholesterol Alexander 28 mg/dL (Normal) Range: 5-40 HDL Cholesterol 38 mg/dL (Abnormal) Comments: According to ATP-III Guidelines, HDL-C >59 mg/dL is considered anegative risk factor for CHD. Triglycerides 140 mg/dL (Normal) Range: 0-149 Cholesterol, Total 152 mg/dL (Normal) Range: 100-199 4-Wfi-643925:14 URINE TEA CULTURE-IDENTIFICATN Comments: PATIENT NOT FASTINGPERFORMED BY: [facility] [place] [address] [id number] Information: [id number] (35545) Result 1 MUG (Normal) Comments: Mixed urogenital flora8,000 Colonies/mL Urine Culture,Comprehensive Final report (Normal) 02-Oct-20129:47 Urinalysis, Office (83856) UA - BILIRUBIN Negative (Normal) UA - BLOOD Negative (Normal) UA - GLUCOSE Negative (Normal) UA - KETONES Negative mg/dL (Normal) UA - LEUKOCYTE ESTERASE Small (Normal) UA - NITRITE Negative (Normal) UA - PH 7.0 (Normal) UA - PROTEIN Trace mg/dL (Normal) UA - SPECIFIC GRAVITY 1.020 (Normal) URINE UROBILINGN KOLBY TIMED Normal mg/dL (Normal) Comments: 1.0 E.U./dL 05-Vwt-171818:49 URINE TEA CULTURE-IDENTIFICATN Comments: PATIENT NOT FASTINGPERFORMED BY: [facility]6370 [facility] [id number] Information: [id number] (31046) Result 2 ECV (Normal) Comments: Escherichia coli, [...] 1,000 Colonies/mL (Normal) Urine Final report (Normal) Culture,Femi wade 25-Zos-103644:47 Urinalysis, Office (92642) UA - BILIRUBIN Negative (Normal) UA - BLOOD Hemolyzed Moderate (Normal) UA - GLUCOSE Negative (Normal) UA - KETONES Negative mg/dL (Normal) UA - LEUKOCYTE ESTERASE Small (Normal) UA - NITRITE Negative (Normal) UA - PH 7.0 (Normal) UA - PROTEIN Negative mg/dL (Normal) UA - SPECIFIC GRAVITY 1.015 (Normal) URINE UROBILINGN KOLBY TIMED Normal mg/dL (Normal) 89-Pao-986616:07 URINE TEA CULTURE-IDENTIFICATN Comments: PATIENT NOT FASTINGPERFORMED BY: [facility] Kpqgjl1506 [facility] [id number] Information: [id number] (56130) Result 2 ECV (Normal) Comments: Escherichia coli, [...] 900 Colonies/mLSTRAIN#1 (Normal) Urine Final report (Normal) CultureFemi 33-Kmf-712659:56 Urinalysis, Office (51884) UA - BILIRUBIN Small (Normal) UA - [...] CREATININE RATIO Comments: PATIENT WAS FASTINGPERFORMED BY: Luc[facility] SkyTsaile Health CenterWjivjq1170 Car[facility] HealthDuolingoECU Health [facility] [id number] (81781) AND (73996) Microalb/Creat Ratio 5.9 {mg/g_creat} (Normal) Range: 0.0-30.0 Microalbumin, Urine 5.6 ug/mL (Normal) Range: 0.0-17.0 Creatinine, Urine 95.1 mg/dL (Normal) Range: 15.0-278.0 :34 CBC WITH MANUAL DIFF Comments: PATIENT WAS FASTINGPERFORMED BY: Luc[facility] SkyTsaile Health CenterCynjsu8804 [facility] [id number] Information: [id number] (21414) Immature Grans (Abs) 0.0 {x10E3/uL} (Normal) Range: [...] (Normal) Range: 4.0-10.5 :34 Vitamin D Hydroxy (99202) Comments: PATIENT WAS FASTINGPERFORMED BY: [employer]70 Hochy etoECU Health Duplin Hospital [id number] Vitamin D, 25-Hydroxy 70.7 ng/mL (Normal) Range: 30.0-100.0 Comments: Vitamin D deficiency has been defined by the [place] of[place]icine and an Endocrine Society practice guideline as alevel of serum 25-OH vitamin D less than 20 ng/mL (1,2).The Endocrine Society went on to further define vitamin Dinsufficiency as a level between 21 and 29 ng/mL (2).1. IOM ([place] of Medicine). 2010. Dietary reference intakes for calcium and D. [place]: The National Academies Press.2. Freddy MF, Pineda NC, Brody KHOURY, et al. Evaluation, treatment, and prevention of vitamin D deficiency: an Endocrine Society clinical practice guideline. JCEM. 2010; 96(7):1911-30. :34 LIPID PANEL (97353) Comments: PATIENT WAS FASTINGPERFORMED BY: [employer]6370 Carrizales [facility] [id number] LDL/HDL Ratio 1.5 {ratio_units} (Normal) Range: 0.0-3.2 [...] PANEL, COMPREHENSIVE Comments: PATIENT WAS FASTINGPERFORMED BY: LabCoBacharach Institute for RehabilitationFdsyep8944 [facility] [id number] (80559) ALT (SGPT) 19 [iU]/L (Normal) Range: 0-32 [...] Glucose, Serum 95 mg/dL (Normal) Range: 65-99 55-Vrk-777641:25 URINE TEA CULTURE-KOLBY COL Comments: PATIENT NOT FASTINGPERFORMED BY: Wooboard.comTsaile Health CenterXjttqm0129 [facility] [id number] Information: SRC:VALENTINA [id number] COUNT (62078) Result 1 ECV (Normal) Comments: Escherichia coli, identified by an automated biochemical system.600 Colonies/mL S = Susceptible; I = Intermediate; R = Resistant P = Positive; N = Negative PA CS are expressed in micrograms per mL Antibiotic RSLT#1 RSLT#2 RSLT#3 RSLT#4Amoxicillin/Clavulanic Acid IAmpicillin RCefazolin SCef epime SCeftriaxone SCefuroxime SCephalothin RCiprofloxacin SESBL NErtapenem SGentamicin RImipenem SLevofloxacin SNitrofurantoin SPiperacillin RTetracycline RTobramycin ITrimethoprim/Sulfa R Urine Final report (Normal) Culture,Comprehensiv e 16-Mot-03108:42 Urinalysis, Office (50785) UA - BILIRUBIN Negative (Normal) UA - BLOOD Negative (Normal) UA - GLUCOSE Negative (Normal) UA - KETONES Negative mg/dL (Normal) UA - LEUKOCYTE ESTERASE Trace (Normal) UA - NITRITE Negative (Normal) UA - PH 7.0 (Normal) UA - PROTEIN Negative mg/dL (Normal) UA - SPECIFIC GRAVITY 1.010 (Normal) URINE UROBILINGN KOLBY TIMED Normal mg/dL (Normal) 4-Pdp-126081:52 Hemoglobin Glyclated (HGB A1C) Comments: PATIENT NOT FASTINGPERFORMED BY: [employer] Fashions and AccessoriesHenry Ford Jackson Hospital6370 [facility] [id number] (47871) Hemoglobin A1c 5.6 % (Normal) Range: 4.8-5.6 Comments: . Increased risk for diabetes: 5.7 - 6.4 Diabetes: >6.4 Glycemic control for adults with diabetes: <7.0 9-Wpu-024898:52 EBV Panel (78272) Comments: PATIENT NOT FASTINGPERFORMED BY: [employer] Fashions and AccessoriesHenry Ford Jackson Hospital6370 [facility] [id number] Interpretation: SPRCS (Normal) Comments: EBV Interpretation Chart [...] <0.9 Equivocal 0.9 - 1.0 Positive >1.0 0-Gla-152468:52 CBC WITH MANUAL DIFF Comments: PATIENT NOT FASTINGPERFORMED BY: LabCo Jhqobm0183 [facility] [id number] Information: [id number] (89928) Immature Grans (Abs) 0.0 {x10E3/uL} (Normal) Range: [...] 3.77-5.28 WBC 6.4 {x10E3/uL} (Normal) Range: 4.0-10.5 4-Atg-269280:52 VITAMIN B-12 (CYANOCOBALAMIN) Comments: PATIENT NOT FASTINGPERFORMED BY: Wooboard.comBacharach Institute for RehabilitationHdobbn2975 [facility] [id number] (58990) Vitamin B12 373 pg/mL (Normal) Range: 211-946 1-Koz-339206:22 URINE TEA CULTURE-KOLBY COL Comments: PATIENT NOT FASTINGPERFORMED BY: [employer] Fashions and AccessoriesHenry Ford Jackson Hospital6370 [facility] [id number] Information: SRC: URINE COUNT (28680) Result 1 ECV (Normal) Comments: Escherichia coli, [...] R Urine Final report (Normal) Culture,Comprehensiv e 8-Oar-385351:11 Urinalysis, Office (40373) UA - BILIRUBIN Negative (Normal) UA - BLOOD Negative (Normal) UA - GLUCOSE Negative (Normal) UA - KETONES Negative mg/dL (Normal) UA - LEUKOCYTE ESTERASE Small (Normal) UA - NITRITE Negative (Normal) UA - PH 7.0 (Normal) UA - PROTEIN Negative mg/dL (Normal) UA - SPECIFIC GRAVITY 1.015 (Normal) URINE UROBILINGN KOLBY TIMED Normal mg/dL (Normal) 34-Hwz-131905:01 BILAT SCRN DIGITAL & CAD Radiology Report [...] EDTElectronically Signed MV/MV Professional Interpretation Provided By: [facility] [employer], , To consult with a radiologist regarding this report, please call our [id number] line @ Dictated on 03/08/12 1212 by Abdiel PETERS MDcribed on 03/08/12 1535 by ITS IMPORTSign by MARCELINO PETERS MD on 03/08/12 1536 Sign by: __ MARCELINO PETERS MD 28-May-20129:39 METABOLIC PANEL, Comments: PATIENT WAS FASTINGPERFORMED BY: KAILA [employer]6370 [facility] [id number] Information: [id number] [facility] (62871) ALT (SGPT) 18 [iU]/L (Normal) Range: 0-40 [...] mg/dL (Abnormal) Range: 65-99 28-May-20129:39 LIPID PANEL (06030) Comments: PATIENT WAS FASTINGPERFORMED BY: Wooboard.comBacharach Institute for RehabilitationYbxlie1720 [facility] [id number] LDL/HDL Ratio 2.2 {ratio_units} (Normal) Range: 0.0-3.2 [...] 100 - 199 :39 Vitamin D Hydroxy (07241) Comments: PATIENT WAS FASTINGPERFORMED BY: [employer]70 Hochy etoECU Health [facility]pl[facility] Hospital [id number] Vitamin D, 25-Hydroxy 63.5 ng/mL (Normal) Range: 30.0-100.0 Comments: Vitamin D deficiency has been defined by the [place] of[place]icine and an Endocrine Society practice guideline as alevel of serum 25-OH vitamin D less than 20 ng/mL (1,2).The Endocrine Society went on to further define vitamin Dinsufficiency as a level between 21 and 29 ng/mL (2).1. IOM ([place] of Medicine). 2010. Dietary reference intakes for calcium and D. [place]: The National Academies Press.2. Freddy MF, Pineda NC, Brody KHOURY, et al. Evaluation, treatment, and prevention of vitamin D deficiency: an Endocrine Society clinical practice guideline. JCEM. 2010; 96(7):1911-30. :39 PHOSPHORUS (08754) Comments: PATIENT WAS FASTINGPERFORMED BY: [employer]6370 [facility] Hospitalin [place] [id number] Phosphorus, Serum 4.1 mg/dL (Normal) Range: 2.5-4.5 :39 PARATHORMONE (46415) Comments: PATIENT WAS FASTINGPERFORMED BY: [facility] Xxazlv8229 [facility] [id number] PTH, Intact 32 pg/mL (Normal) Range: 15-65 28-May-20129:39 TSH (70586) Comments: PATIENT WAS FASTINGPERFORMED BY: [facility] Kjojom3758 [facility] [id number] TSH 3.330 {uIU/mL} (Normal) Range: 0.450-4.500 77-Tbj-196337:01 DEXA BONE DENSITY STUDY () Radiology Report [...] radiologist regarding this report, please call our [id number] line @ Dictated on 10/12/11 1004 by Ni BERG,Oscar rodriguezrishereen on 10/12/11 1101 by ITS IMPORTSign by Ni BERG,Arjun on 10/12/11 1102 Sign by: Arjun Weathers MD 34-Afb-709966:12 METABOLIC PANEL, Comments: PATIENT WAS FASTINGPERFORMED BY: LabHenry Ford Jackson Hospital6370 [facility] [id number] Information: [id number] COMPREHENSIVE (49620) ALT (SGPT) 15 [iU]/L (Normal) Range: 0-40 [...] Glucose, Serum 92 mg/dL (Normal) Range: 65-99 04-Oqm-246883:12 Vitamin D Hydroxy (70470) Comments: PATIENT WAS FASTINGPERFORMED BY: Attentive.lyECU Health Duplin Hospital [id number] Vitamin D, 25-Hydroxy 70.5 ng/mL (Normal) Range: 30.0-100.0 Comments: Vitamin D deficiency has been defined by the [place] of[place]icine and an Endocrine Society practice guideline as alevel of serum 25-OH vitamin D less than 20 ng/mL (1,2).The Endocrine Society went on to further define vitamin Dinsufficiency as a level between 21 and 29 ng/mL (2).1. IOM ([place] of Medicine). 2010. Dietary reference intakes for calcium and D. [place]: The National Academies Press.2. Freddy MF, Pineda EUBANKS, Brody KHOURY, et al. Evaluation, treatment, and prevention of vitamin D deficiency: an Endocrine Society clinical practice guideline. JCEM. 2010; 96(7):1911-30. 72-Xyb-915433:12 LIPID PANEL (62109) Comments: PATIENT WAS FASTINGPERFORMED BY: [employer]6370 [facility] [id number] LDL/HDL Ratio 2.1 {ratio_units} (Normal) Range: 0.0-3.2 LDL Cholesterol Calc 103 mg/dL (Abnormal) Range: 0-99 VLDL Cholesterol Alexander 19 mg/dL (Normal) Range: 5-40 HDL Cholesterol 50 mg/dL (Normal) Comments: According to ATP-III Guidelines, HDL-C >59 mg/dL is considered anegative risk factor for CHD. Triglycerides 97 mg/dL (Normal) Range: 0-149 Cholesterol, Total 172 mg/dL (Normal) Range: 100-199 88-Ddv-485073:56 UNILAT LT DIAG DIGITAL & CAD Radiology [...] clinically suspiciousabnormality. Dictated on 02/17/11 1004 by Rhea Weathers MDranscribed on 02/17/11 1133 by ITS IMPORTSign by Arjun Weathers MD on 02/17/11 1134 Sign by: Arjun Weathers MD 99-Jil-75576:59 BILAT SCRN DIGITAL & CAD Radiology Report [...] 02/16/11 1026 Sign by: Arjun Weathers MD 38-Ikp-865761:01 METABOLIC PANEL, Comments: PATIENT WAS FASTINGPERFORMED BY: LabCoBacharach Institute for RehabilitationVgnvvh2712 [facility] [id number] Information: [id number] COMPREHENSIVE (32939) ALT (SGPT) 20 [iU]/L (Normal) Range: 0-40 [...] Glucose, Serum 99 mg/dL (Normal) Range: 65-99 89-Rty-226080:01 LIPID PANEL (98458) Comments: PATIENT WAS FASTINGPERFORMED BY: [employer] [place] [id number] LDL/HDL Ratio 2.1 {ratio_units} (Normal) Range: 0.0-3.2 LDL Cholesterol Calc 91 mg/dL (Normal) Range: 0-99 VLDL Cholesterol Alexander 23 mg/dL (Normal) Range: 5-40 HDL Cholesterol 44 mg/dL (Normal) Comments: According to ATP-III Guidelines, HDL-C >59 mg/dL is considered anegative risk factor for CHD. Triglycerides 114 mg/dL (Normal) Range: 0-149 Cholesterol, Total 158 mg/dL (Normal) Range: 100-199 71-Avp-905007:01 Vitamin D Hydroxy (46118) Comments: PATIENT WAS FASTINGPERFORMED BY: Attentive.lyECU Health Duplin Hospital [id number] Vitamin D, 25-Hydroxy 39.2 ng/mL (Normal) Range: 32.0-100.0 Comments: Recent studies consider the lower limit of 32.0 ng/mL to be athreshold for optimal health.Harman GALVAN. J Nutr. 2004;135(2):317-22. 74-Mku-613643:59 URINE TEA CULTURE-KOLBY COL Comments: PATIENT NOT FASTINGPERFORMED BY: [employer] [place] [id number] Information: SRC:UR [id number] COUNT (40888) Result 1 MUG (Normal) Comments: Mixed urogenital Colonies/mL Urine Culture,Comprehensive Final report (Normal) 58-Dex-512279:54 Urinalysis, Office (10505) UA - BILIRUBIN Negative (Normal) UA - BLOOD Negative (Normal) UA - GLUCOSE Negative (Normal) UA - KETONES Negative mg/dL (Normal) UA - LEUKOCYTE ESTERASE Small (Normal) UA - NITRITE Negative (Normal) UA - PH 6.0 (Normal) UA - PROTEIN Negative mg/dL (Normal) UA - SPECIFIC GRAVITY 1.005 (Normal) URINE UROBILINGN KOLBY TIMED Normal mg/dL (Normal) 31-Lcd-893422:21 URINE TEA CULTURE (KOLBY Comments: PATIENT NOT FASTINGPERFORMED BY: Attentive.lyECU Health Duplin Hospital [id number] Information: SRC:UR [id number] COL COUNT) (43266) Result 1 BETAGB (Normal) Comments: Beta hemolytic [...] Disease, February,.) Urine Final report (Normal) Culture,Comprehensive 54-Igb-95146:30 Urinalysis, Office (20585) UA - BILIRUBIN Negative (Normal) UA - BLOOD Hemolyzed Trace (Normal) UA - GLUCOSE Negative (Normal) UA - KETONES Negative mg/dL (Normal) UA - LEUKOCYTE ESTERASE Moderate (Normal) UA - NITRITE Negative (Normal) UA - PH 7.0 (Normal) UA - PROTEIN Negative mg/dL (Normal) UA - SPECIFIC GRAVITY 1.010 (Normal) URINE UROBILINGN KOLBY TIMED Normal mg/dL (Normal) 78-Lna-032619:26 Microscopic Examination Comments: PATIENT WAS FASTINGPERFORMED BY: [employer] Rybcyl4596 [facility] [id number] Bacteria None seen (Normal) Epithelial Cells (non renal) 0-10 {/hpf} (Normal) Range: 0 - 10 Mucus Threads Present (Normal) RBC 4-10 {/hpf} (Abnormal) Range: 0 - 3 WBC 11-30 {/hpf} (Abnormal) Range: 0 - 5 00-Ode-046783:26 CBC WITH MANUAL DIFF Comments: PATIENT WAS FASTINGPERFORMED BY: LabHenry Ford Jackson Hospital6370 [facility] [id number] Information: [id number] (10865) Baso (Absolute) 0.0 {x10E3/uL} (Normal) Range: 0.0-0.2 [...] 11.7-15.0 WBC 5.2 {x10E3/uL} (Normal) Range: 4.0-10.5 32-Vzf-928338:26 URINALYSIS, W/ MICRO (25820) Comments: PATIENT WAS FASTINGPERFORMED BY: Wooboard.comBacharach Institute for RehabilitationBdkjxm9704 [facility] [id number] Bilirubin Negative (Normal) Ketones Negative (Normal) Microscopic Examination See below: (Normal) Nitrite, Urine Negative (Normal) Occult Blood 1+ (Abnormal) Urobilinogen,Semi-Qn 0.2 mg/dL (Normal) Range: 0.0-1.9 Appearance Clear (Normal) Glucose Negative (Normal) pH 6.5 (Normal) Range: 5.0-7.5 Protein Trace (Normal) Specific Aladdin 1.024 (Normal) Range: 1.005-1.030 Urine-Color Yellow (Normal) WBC Esterase 2+ (Abnormal) :26 TSH (39018) Comments: PATIENT WAS FASTINGPERFORMED BY: Wooboard.comBacharach Institute for RehabilitationCdvmkj1010 [facility] [id number] TSH 2.590 {uIU/mL} (Normal) Range: 0.450-4.500 83-Nws-009528:26 METABOLIC PANEL, COMPREHENSIVE Comments: PATIENT WAS FASTINGPERFORMED BY: Wooboard.comBacharach Institute for RehabilitationCvftdl7891 [facility] [id number] (92245) A/G Ratio 2.0 (Normal) Range: 1.1-2.5 Albumin, [...] 25 18 - 39 years 8 - 19 8 - 20 40 - 59 years 9 - 20 9 - 23 60 years and older 10 11 - 26 Calcium, Serum 9.4 mg/dL (Normal) Range: 8.6-10.2 [...] Glucose, Serum 98 mg/dL (Normal) Range: 65-99 83-Tjb-813151:26 Vitamin D Hydroxy (82323) Comments: PATIENT WAS FASTINGPERFORMED BY: [employer] LabChongqing Jielai Communicationrp Kxmqpo2965 [facility] [id number] Vitamin D, 25-Hydroxy 57.0 ng/mL (Normal) Range: 32.0-100.0 Comments: Recent studies consider the lower limit of 32.0 ng/mL to be athreshold for optimal health.Harman GALVAN. J Nutr. 2004;135(2):317-22. 49-Osa-590019:26 LIPID PANEL (55606) Comments: PATIENT WAS FASTINGPERFORMED BY: LabHenry Ford Jackson Hospital6370 [facility] [id number] Cholesterol, Total 145 mg/dL (Normal) Range: 100-199 HDL Cholesterol 45 mg/dL (Normal) Comments: According to ATP-III Guidelines, HDL-C >59 mg/dL is considered anegative risk factor for CHD. LDL Cholesterol Calc 81 mg/dL (Normal) Range: 0-99 LDL/HDL Ratio 1.8 {ratio_units} (Normal) Range: 0.0-3.2 Triglycerides 93 mg/dL (Normal) Range: 0-149 VLDL Cholesterol Alexander 19 mg/dL (Normal) Range: :32 LIPID PANEL (86584) Comments: PATIENT WAS FASTINGPERFORMED BY: Wooboard.comBacharach Institute for RehabilitationXdlfwx9954 [facility] [id number] Cholesterol, Total 168 mg/dL (Normal) Range: 100-199 HDL Cholesterol 43 mg/dL (Normal) Comments: According to ATP-III Guidelines, HDL-C >59 mg/dL is considered anegative risk factor for CHD. LDL Cholesterol Calc 110 mg/dL (Abnormal) Range: 0-99 LDL/HDL Ratio 2.6 {ratio_units} (Normal) Range: 0.0-3.2 Triglycerides 76 mg/dL (Normal) Range: 0-149 VLDL Cholesterol Alexander 15 mg/dL (Normal) Range: 17-Jun-201011:32 METABOLIC PANEL, Comments: PATIENT WAS FASTINGPERFORMED BY: [facility]6370 [facility] [id number] Information: [id number] COMPREHENSIVE (39686) A/G Ratio 1.8 (Normal) Range: 1.1-2.5 Alkaline [...] Glucose, Serum 93 mg/dL (Normal) Range: 65-99 84-Pfk-907184:32 Vitamin D Hydroxy (21699) Comments: PATIENT WAS FASTINGPERFORMED BY: [employer]6370 [facility] [id number] Vitamin D, 25-Hydroxy 39.3 ng/mL (Normal) Range: 32.0-100.0 Comments: Recent studies consider the lower limit of 32.0 ng/mL to be athreshold for optimal health.Harman GALVAN. J Nutr. 2004;135(2):317-22. 5-Jcl-777364:20 Glucose (2 Spec) Comments: PATIENT WAS FASTINGPERFORMED BY: [employer] LabCoCeDe Group Dlcbri2730 [facility] [id number] Information: 75G DRAWN @ 1107AM Tolerance, S Glucose, 2 hour 92 mg/dL (Normal) Range: 65-139 Glucose, Fasting 97 mg/dL (Normal) Range: 65-99 :44 Vitamin D Hydroxy (07263) Comments: PATIENT WAS FASTINGPERFORMED BY: [facility] Tularelin6370 [facility] [id number] Vitamin D, 25-Hydroxy 38.1 ng/mL (Normal) Range: 32.0-100.0 Comments: Recent studies consider the lower limit of 32.0 ng/mL to be athreshold for optimal health.Harman GALVAN. J Nutr. 2004;135(2):317-22. -:44 CBC WITH MANUAL DIFF Comments: PATIENT WAS FASTINGPERFORMED BY: LabNorth[facility] Center Tizlfc0864 [facility] [id number] Information: [id number] (93045) Baso (Absolute) 0.1 {x10E3/uL} (Normal) Range: 0.0-0.2 [...] PANEL, COMPREHENSIVE Comments: PATIENT WAS FASTINGPERFORMED BY: LabCoBacharach Institute for RehabilitationOkysmx7057 [facility] [id number] (15450) ALT (SGPT) 24 [iU]/L (Normal) Range: 0-40 [...] (Abnormal) Range: 65-99 :44 HEPATIC FUNCTION PANEL (97808) Comments: PATIENT WAS FASTINGPERFORMED BY: [facility]Co Pssxzq4610 [facility] [id number] Bilirubin, Direct 0.14 mg/dL (Normal) Range: 0.00-0.40 27-Jan-20109:44 LIPID PANEL (81229) Comments: PATIENT WAS FASTINGPERFORMED BY: LabCo Sbraxi5777 [facility] [id number] LDL/HDL Ratio 2.3 {ratio_units} (Normal) Range: 0.0-3.2 HDL Cholesterol 45 mg/dL (Normal) Comments: According to ATP-III Guidelines, HDL-C >59 mg/dL is considered anegative risk factor for CHD. LDL Cholesterol Calc 104 mg/dL (Abnormal) Range: 0-99 Triglycerides 105 mg/dL (Normal) Range: 0-149 VLDL Cholesterol Alexander 21 mg/dL (Normal) Range: 5-40 Cholesterol, Total 170 mg/dL (Normal) Range: 100-199 99-Zrc-374076:45 BILAT SCRN DIGITAL & CAD Radiology Report See Note (Normal) Comments: Exam Number: [id number] DIGITAL BILATERAL MAMMOGRAM Digital oblique and craniocaudal [...] mammograms werealso examined with computer-aided detection software ([employer] Reported By: ARJUN WEATHERS 97-Hhi-934103:42 DEXA BONE DENSITY STUDY () Radiology Report See Note (Normal) Comments: Exam Number: [id number] DEXA BONE DENSITY STUDY A dexa scan [...] -9.8%. Treatment isadvised. Reported By: ARJUN WEATHERS 5-Duy-619753:04 CTA ABDOMEN W/WO CONTRAST Radiology Report See Note (Normal) Comments: Exam Number: [id number] CT ANGIOGRAM ABDOMEN WITH CONTRAST HISTORY Uncontrolled [...] andexcreted contrast normally. Reported By: Real Monk :33 Vitamin D Hydroxy (84487) Comments: PATIENT WAS FASTINGPERFORMED BY: LabCo Gwdrlb2997 [facility] [id number] Vitamin D, 25-Hydroxy 35.2 ng/mL (Normal) Range: 32.0-100.0 Comments: Recent studies consider the lower limit of 32.0 ng/mL to be athreshold for optimal health.Harman GALVAN. J Nutr. 2004;135(2):317-22. :33 METABOLIC PANEL, Comments: PATIENT WAS FASTINGPERFORMED BY: [employer] Rtrzwl1525 [facility] [id number] Information: [id number] COMPREHENSIVE (69999) ALT (SGPT) 23 [iU]/L (Normal) Range: 0-40 [...] mg/dL (Abnormal) Range: 65-99 :33 LIPID PANEL (28369) Comments: PATIENT WAS FASTINGPERFORMED BY: [employer]70 [facility]oEC[facility] [id number] Cholesterol, Total 180 mg/dL (Normal) Range: 100-199 [...] Panel (14) Comments: PATIENT WAS FASTINGPERFORMED BY: [employer]6370 [facility] [id number] A/G Ratio 1.6 (Normal) Range: 1.1-2.5 Albumin, [...] With LDL/HDL Comments: PATIENT WAS FASTINGPERFORMED BY: [employer]70 [facility]ochy etoEC[facility] [id number] Ratio Cholesterol, Total 156 mg/dL (Normal) Range: [...] ng/mL (Normal) Comments: PATIENT WAS FASTINGPERFORMED BY: [employer]6370 [employer] [facility] [id number] :29 Range: 32.0-100.0 Comments: Recent studies consider the lower limit of 32.0 ng/mL to be athreshold for optimal health.Harman GALVAN. J Nutr. 2005 Feb;135(2):317-22. D-DIMER QUANT <200 ng/mL (Normal) Comments: NORMAL D-Dimer level indicates no DVT or PE. 0:05 TROPONIN-I < 0.04 ng/mL Comments: TROPONIN-I EXPECTED VALUES < 0.50 NEGATIVE 0.50 - 1.49 INDETERMINANT > OR = 1.50 SUGGEST PA 0:05 (Normal) VIT D,25 40548 16.5 ng/mL Range: 32.0-100.0 0:05 (Abnormal) Comments: Recent studies consider the lower limit of 32.0 ng/mL to dulce maria threshold for optimal health.[facility]. J Nutr. 2004;135(2):317- 22.Performed At: [facility] [id number] VITAMIN B12 403 pg/mL (Normal) Range: 211-911 0:05 88-Cxw-959660:38 Microscopic Examination Comments: PATIENT WAS FASTINGPERFORMED BY: [employer]6370 [facility] [id number] Bacteria Few (Normal) Epithelial Cells (non renal) 0-10 {/hpf} (Normal) Range: 0 - 10 Mucus Threads Present (Normal) RBC 0-3 {/hpf} (Normal) Range: 0 - 3 WBC 6-10 {/hpf} (Abnormal) Range: 0 - 5 24-Akj-128761:38 URINALYSIS W/O MICRO (86836) Comments: PATIENT WAS FASTINGPERFORMED BY: [employer]6370 [facility] [id number] Appearance Clear (Normal) Bilirubin Negative (Normal) Glucose Negative (Normal) Ketones Negative (Normal) Microscopic Examination See below: (Normal) Nitrite, Urine Negative (Normal) Occult Blood Negative (Normal) pH 6.0 (Normal) Range: 5.0-7.5 Protein Trace (Normal) Specific Aladdin 1.022 (Normal) Range: 1.005-1.030 Urine-Color Yellow (Normal) Urobilinogen,Semi-Qn 0.2 mg/dL (Normal) Range: 0.0-1.9 WBC Esterase 1+ (Abnormal) :38 TSH (32959) Comments: PATIENT WAS FASTINGPERFORMED BY: LabCoBacharach Institute for RehabilitationSpcvys7084 [facility] [id number] TSH 2.313 {uIU/mL} (Normal) Range: 0.450-4.500 :38 CBC WITH MANUAL DIFF (47249) Comments: PATIENT WAS FASTINGClinical Information: ADD DRAW FEE [id number] ADD [id number] PERFORMED BY: LabCoBacharach Institute for RehabilitationShnqkr5319 [facility] [id number] Baso (Absolute) 0.0 {x10E3/uL} (Normal) Range: 0.0-0.2 [...] 11.7-15.0 WBC 8.9 {x10E3/uL} (Normal) Range: 4.0-10.5 47-Lwj-072115:38 HEPATIC FUNCTION PANEL Comments: PATIENT WAS FASTINGPERFORMED BY: Wooboard.comBacharach Institute for RehabilitationJmomwe4332 [facility] [id number] (51448) Albumin, Serum 4.4 g/dL (Normal) Range: 3.5-4.8 Alkaline Phosphatase, S 85 [iU]/L (Normal) Range: 25-165 ALT (SGPT) 13 [iU]/L (Normal) Range: 0-40 AST (SGOT) 15 [iU]/L (Normal) Range: 0-40 Bilirubin, Direct 0.12 mg/dL (Normal) Range: 0.00-0.40 Bilirubin, Total 0.4 mg/dL (Normal) Range: 0.1-1.2 Protein, Total, Serum 6.7 g/dL (Normal) Range: 6.0-8.5 50-Uys-392883:38 LIPID PANEL (73333) Comments: PATIENT WAS FASTINGPERFORMED BY: Wooboard.comBacharach Institute for RehabilitationDgbqkw1995 [facility] [id number] Cholesterol, Total 161 mg/dL (Normal) Range: 100-199 HDL Cholesterol 47 mg/dL (Normal) Comments: According to ATP-III Guidelines, HDL-C >59 mg/dL is considered anegative risk factor for CHD. LDL Cholesterol Calc 97 mg/dL (Normal) Range: 0-99 LDL/HDL Ratio 2.1 {ratio_units} (Normal) Range: 0.0-3.2 Triglycerides 85 mg/dL (Normal) Range: 0-149 VLDL Cholesterol Alexander 17 mg/dL (Normal) Range: 5-40 :35 BILAT SCRN DIGITAL & CAD Radiology Report See Note (Normal) Comments: Exam Number: [id number] BILATERAL SCREENING DIGITAL MAMMOGRAM CLINICAL INFORMATIONScreening. Bilateral [...] he mammogramswere also examined with computer-aided detection software([employer] Reported By: DRE BEVERLY M.D. 87-Xwh-513766:47 KNEE,1 OR 2 VIEWS Radiology Report See Note (Normal) Comments: Exam Number: [id number] LEFT KNEE - 4 VIEWS CLINICAL INFORMATIONOsteoarthritis. [...] left knee. Reported By: DRE BEVERLY M.D. 47-Nnc-518146:23 URINE TEA CULTURE (KOLBY COL Comments: PATIENT NOT FASTINGClinical Information: SRC:UR ADD [id number] PERFORMED BY: [employer] [place] [id number] COUNT) (01096) Result 1 NG36 (Normal) Comments: No growth in 36 - 48 hours. Urine Culture,Comprehensive Final report (Normal) 95-Lgr-560046:51 Urinalysis, Office (68389) UA - BILIRUBIN Negative (Normal) UA - BLOOD Non Hemolyzed Trace (Normal) UA - GLUCOSE Negative (Normal) UA - KETONES Negative mg/dL (Normal) UA - LEUKOCYTE ESTERASE Trace (Normal) UA - NITRITE Negative (Normal) UA - PH 6.0 (Normal) UA - PROTEIN Negative mg/dL (Normal) UA - SPECIFIC GRAVITY 1.015 (Normal) URINE UROBILINGN KOLBY TIMED Normal mg/dL (Normal) 44-Foq-86184:49 CBC With Differential/Platelet Comments: PATIENT WAS FASTINGPERFORMED BY: [facility]entive.lyECU [facility] [id number] Baso (Absolute) 0.0 {x10E3/uL} (Normal) Range: 0.0-0.2 [...] Panel (14) Comments: PATIENT WAS FASTINGPERFORMED BY: LabCoBacharach Institute for RehabilitationDnvpou2493 [facility] [id number] A/G Ratio 1.8 (Normal) Range: 1.1-2.5 Albumin, [...] Serum 99 mg/dL (Normal) Range: 65-99 If -South Korean >60 mL/min (Normal) Range: 60-128 Comments: Note: [...] With LDL/HDL Comments: PATIENT WAS FASTINGPERFORMED BY: [facility] [facility] [id number] Ratio Cholesterol, Total 164 mg/dL (Normal) Range: [...] Microscopic Examination Comments: PATIENT WAS FASTINGPERFORMED BY: [place] [id number] Bacteria Few (Normal) Epithelial Cells (non 0-10 {/hpf} Range: 0 - 10 renal) (Normal) Mucus Threads Present (Abnormal) RBC 0-3 {/hpf} (Normal) Range: 0 - 3 WBC 6-10 {/hpf} Range: 0 - 5 (Abnormal) TSH 2.465 {uIU/mL} Comments: PATIENT WAS FASTINGPERFORMED BY: [facility]6370 [facility] [id number] :49 (Normal) Range: 0.350-5.500 Comments: Adult TSH concentrations below 5.5 uIU/mL do not rule out the presence of subclinical hypothyroidism. . EFFECTIVE Apr the adult reference interval for TSH will be changing to 0.450 - 4.500 uIU/mL. :49 Urinalysis, Routine Comments: PATIENT WAS FASTINGPERFORMED BY: [facility]6370 [facility] [id number] Appearance Clear (Normal) Bilirubin Negative (Normal) Glucose Negative (Normal) Ketones Negative (Normal) Microscopic Examination See below: (Normal) Nitrite, Urine Negative (Normal) Occult Blood Negative (Normal) pH 6.0 (Normal) Range: 5.0-7.5 Protein Negative (Normal) Specific Aladdin 1.020 (Normal) Range: 1.005-1.030 Urine-Color Yellow (Normal) Urobilinogen,Semi-Qn 0.2 mg/dL (Normal) Range: 0.0-1.9 WBC Esterase 2+ (Abnormal) :03 DEXA BONE DENSITY STUDY () Radiology Report See Note (Normal) Comments: Exam Number: [id number] BONE DENSITOMETRY HISTORYOsteoporosis. TECHNIQUE Bone densitometry of [...] than in 2003, and 5.1% less than [id number]. IMPRESSIONThere is osteoporosis of the lumbar spine and left hip. Reported By: LAYO ROTH M.D. 29-Oct-20078:16 METABOLIC PANEL, BASIC (87765) Comments: PATIENT WAS FASTINGClinical Information: ADD DRAW FEE [id number] ADD [id number] PERFORMED BY: [facility]Henry [facility]6370 [facility] [id number] BUN 15 mg/dL (Normal) Range: 5-26 BUN/Creatinine Ratio 19 (Normal) Range: 8-27 Calcium, Serum 9.1 mg/dL (Normal) Range: 8.5-10.6 Carbon Dioxide, Total 27 mmol/L (Normal) Range: 20-32 Chloride, Serum 104 mmol/L (Normal) Range: 96-109 Creatinine, Serum 0.8 mg/dL (Normal) Range: 0.5-1.5 Glucose, Serum 94 mg/dL (Normal) Range: 65-99 Potassium, Serum 4.0 mmol/L (Normal) Range: 3.5-5.5 Sodium, Serum 141 mmol/L (Normal) Range: 135-148 88-Hmo-138693:12 UNILAT DIA DIGITAL & CAD Radiology Report See Note (Normal) Comments: Exam Number: [id number] MAMMOGRAM, UNILATERAL LEFT DIAGNOSTIC DIGITAL AND CAD [...] mammograms werealso examined with computer-aided detection software ([employer] Reported By: LAYO ROTH M.D. 81-Prr-719044:21 BILAT SCRN DIGITAL & CAD Radiology Report See Note (Normal) Comments: Exam Number: [id number] MAMMOGRAM, BILATERAL SCREENING DIGITAL AND CAD HISTORYRoutine [...] wer ealso examined with computer-aided detection software ([employer].). Reported By: LAYO ROTH M.D. 45-Suq-52133:06 BMP BUN 13 mg/dL (Normal) Range: 7-18 [...] 0.2 EU/dl (Normal) Range: 0.2 - 1.0 :12 TSH 3.09 {uIU/mL} (Normal) Range: 0.34-4.82 9-Svz-266007:45 Urinalysis, Office (73100) UA - BILIRUBIN Negative (Normal) UA - [...] X-Ray Planned Observations CBC W/AUTO DIFF WBC (28583)Indication: Hypertensive heart disease without congestive heart failure On: :25 Request METABOLIC PANEL, COMPREHENSIVE (70511)Indication: Hypertensive heart disease without congestive heart failure On: :25 Request VITAMIN B-12 (CYANOCOBALAMIN) (40828)Indication: Vitamin B 12 deficiency On: :24 Request HgA1C , Office (06276)Indication: Impaired fasting glucose On: 97-Kbj-961320:13 Request MICROALBUMIN: CREATININE RATIO (00773) AND (25475)Indication: Impaired fasting glucose On: 8-Moq-972069:26 Request CBC W/AUTO DIFF WBC (67064)Indication: Impaired fasting glucose On: 8-Pmo-843326:26 Request METABOLIC PANEL, COMPREHENSIVE (97834)Indication: Impaired fasting glucose On: 1-Bnf-626925:25 Request PTT (Activated Partial Thromboplastin Time) (83342)Indication: Pre-operative exam (Renamed from Encounter for pre-operative examination) On: 6-Uvv-804798:10 Request PT (Prothrobim Time) (31037)Indication: Pre-operative exam (Renamed from Encounter for pre-operative examination) On: 8-Mbi-133092:10 Request URINALYSIS, W/ MICRO (81005)Indication: Pre-operative exam (Renamed from Encounter for pre-operative examination) On: :09 Request CBC W/AUTO DIFF WBC (45012)Indication: Pre-operative exam (Renamed from Encounter for pre-operative examination) On: 2-Uum-657401:09 Request METABOLIC PANEL, COMPREHENSIVE (78579)Indication: Pre-operative exam (Renamed from Encounter for pre-operative examination) On: : Request CBC W/AUTO DIFF WBC (75350)Indication: Impaired fasting glucose On: 85-Uvt-107680:56 Request METABOLIC PANEL, COMPREHENSIVE (64856)Indication: Impaired fasting glucose On: 33-Hyx-616781:56 Request VITAMIN B-12 (CYANOCOBALAMIN) (90819)Indication: Vitamin B 12 deficiency On: 49-Pli-466723:56 Request HgA1C , Office (84115)Indication: Impaired fasting glucose On: 57-Nug-747389:34 Request URINE TEA CULTURE-KOLBY COL COUNT (47227)Indication: Urinary tract infection, site not specified On: 3-Frl-131669:37 Request URINE TEA CULTURE-KOLBY COL COUNT (11802)Indication: Urinary frequency On: 56-Uic-586607:40 Request LIPID PANEL (17635)Indication: Hypercholesterolemia On: 27-Gru-145639:27 Request Hemoglobin Glyclated (HGB A1C) (71420)Indication: Impaired fasting glucose On: 91-Cpy-893413:27 Request METABOLIC PANEL, COMPREHENSIVE (55604)Indication: Hypertensive heart disease without congestive heart failure On: 19-Tab-419984:27 Request URINE TEA CULTURE-IDENTIFICATN (21971)Indication: Urinary frequency On: 23-Yey-51551:43 Request HgA1C , Office (94851)Indication: Impaired fasting glucose On: 28-Oct-20149:47 Request RHEUMATOID FACTOR-QUANT (29608)Indication: Branch retinal artery occlusion of right eye On: 37-Rjl-787210:21 Request SURI (ANTINUCLEAR ANTIBODY) (12413)Indication: Branch retinal artery occlusion of right eye On: Request Protein S Profile (56438)Indication: Branch retinal artery occlusion of right eye On: Request Protein C Profile (40778)Indication: Branch retinal artery occlusion of right eye On: Request Antiphospholipid atb (66364)Indication: Branch retinal artery occlusion of right eye On: Request ANTICOAG ANTTHROMB III & ASSAY (84516)Indication: Branch retinal artery occlusion of right eye On: Request ANTITHROMBIN III ACTIVTY (39097)Indication: Branch retinal artery occlusion of right eye On: Request CLOTTING FACTOR II (09223)Indication: Branch retinal artery occlusion of right eye On: Request Factor V Leiden (19136)Indication: Branch retinal artery occlusion of right eye On: Request Protein Electrophoresis, Serum (SPEP) (09480)Indication: Branch retinal artery occlusion of right eye On: Request UPEP (61983)Indication: Branch retinal artery occlusion of right eye On: Request C-REACTIVE PROTEIN (79379)Indication: Branch retinal artery occlusion of right eye On: Request SED RATE ERYTHROCYTE (70605)Indication: Branch retinal artery occlusion of right eye On: Request CBC W/AUTO DIFF WBC (28526)Indication: Impaired fasting glucose On: Request Comments: 4 months MICROALBUMIN: CREATININE RATIO (61120) AND (56354)Indication: Impaired fasting glucose On: :37 Request Comments: 4 months LIPID PANEL (19510)Indication: Impaired fasting glucose On: Request Comments: 4 mnths METABOLIC PANEL, COMPREHENSIVE (00712)Indication: Impaired fasting glucose On: Request Comments: 4 months Calcium Serum (16861)Indication: Abnormal blood chemistry On: :44 Request Comments: 2 weeks URINE TEA CULTURE-KOLBY COL COUNT (48052)Indication: Urinary tract infection, site not specified On: 75-Hgt-121158:28 Request SPEP (25563)Indication: Osteoporosis On: 06-Zgc-163823:13 Request UPEP (81138)Indication: Osteoporosis On: 04-Olp-933210:13 Request GLUCOSE TOLERANCE TEST (GTT) 2 hour (29113)Indication: Hyperglycemia On: 98-Ret-024012:07 Request Vitamin D Hydroxy (22551)Indication: Vitamin D deficiency On: 08-Xic-75890:50 Request Vitamin D Hydroxy (11777) On: 89-Yxd-106543:58 Request ASSAY, TROPONIN, QUANTITATIVE (aka Troponin I) (53806)Indication: Chest pain On: 14-Tvs-402270:06 Request D-Dimer (92577)Indication: Chest pain On: 85-Gux-586522:05 Request VITAMIN B-12 (CYANOCOBALAMIN) (08979)Indication: Fatigue On: 07-Pdt-560815:00 Request Vitamin D Hydroxy (83030)Indication: Osteoporosis On: 80-Bgb-51849:59 Request METABOLIC PANEL, COMPREHENSIVE (93638)Indication: Hypertensive heart disease without congestive heart failure On: 6-Naj-928716:28 Request LIPID PANEL (87541)Indication: Hypercholesterolemia On: 8-Otj-751787:27 Request HEPATIC FUNCTION PANEL (35901)Indication: Hypercholesterolemia On: 8-Dud-104097:27 Request URINALYSIS W/O MICRO (77433)Indication: lower ext edema On: 03-Vqn-017583:32 Request TSH (19566)Indication: lower ext edema On: 96-Srr-959333:32 Request CBC WITH MANUAL DIFF (97129)Indication: lower ext edema On: 78-Rgm-801777:32 Request METABOLIC PANEL, COMPREHENSIVE (09382)Indication: lower ext edema On: 60-Hks-090316:32 Request LIPID PANEL (61532)Indication: Hypercholesterolemia On: 33-Kym-963757:56 Request HEPATIC FUNCTION PANEL (81771)Indication: Hypercholesterolemia On: 42-Awn-948344:56 Request URINALYSIS W/O MICRO (65176)Indication: Hypertensive heart disease without congestive heart failure On: 6-Eig-301289:03 Request TSH (36978)Indication: Hypertensive heart disease without congestive heart failure On: 1-Vhi-854053:03 Request METABOLIC PANEL, COMPREHENSIVE (04877)Indication: Hypertensive heart disease without congestive heart failure On: 9-Eye-828703:03 Request CBC WITH MANUAL DIFF (27465)Indication: Hypertensive heart disease without congestive heart failure On: 9-Nlu-400117:03 Request HEPATIC FUNCTION PANEL (86033)Indication: Hypercholesterolemia On: 2-Qqu-995309:03 Request LIPID PANEL (74052)Indication: Hypercholesterolemia On: 4-Jru-830044:03 Request URINE TEA CULTURE-IDENTIFICATN (46696)Indication: Urinary tract infection, site not specified On: 5-Sfk-100233:34 Request URINALYSIS W/O MICRO (18880)Indication: Hypertensive heart disease without congestive heart failure On: 29-Lui-922604:20 Request TSH (04317)Indication: Hypertensive heart disease without congestive heart failure On: :20 Request METABOLIC PANEL, COMPREHENSIVE (61320)Indication: Hypertensive heart disease without congestive heart failure On: 73-Jio-081026:20 Request LIPID PANEL (21430)Indication: Hypercholesterolemia On: :19 Request CBC WITH MANUAL DIFF (15396)Indication: Hypertensive heart disease without congestive heart failure On: 60-Ezt-525315:19 Request Planned Encounters Medical; [facility]ness Exam (DF Nurse) - On: 31-Dec-2018 10:00 [facility] NURSE, DF Medical; [facility] Exam (Doctor) - On: 22-Jan-2019 13:30 [facility] Fast DO, Audrey A Fast DO, Audrey A Planned Procedures COMPUTED TOMOGRAPHY ANGIOGRAPHY OF On: 24-Jun-2018 Intent BOTH CAROTID ARTERIES (62447)By: Fast DO, Audrey A Fast DO, Audrey A SCREENING DIGITAL TOMOSYNTHESIS OF On: 24-Jun-2018 Intent BREAST (79335)By: Fast DO, Audrey A Comments: dec Fast DO, Audrey A Flu Vaccine (Quadrivalent) 89492Cw: On: 24-Jun-2018 Intent Fast DO, Audrey A Fast DO, Audrey A Comments: Lot: [id number]: 03/23/19Site: L dltd, IMDose prefilled syringegiven by: ArunnchacaioVIS reviewed and ABN signed Cartoid DopplerBy: Fast DO, Audrey A On: 13-Mar-2018 Intent Fast DO, Audrey A Comments: sept ELECTROCARDIOGRAM, COMPLETE (ECG) On: 04-Dec-2017 Intent (57688)By: Fast DO, Audrey A Fast DO, Audrey A DEXA SCAN AXIAL SKELETON (60000)By: On: 04-Dec-2017 Intent Fast DO, Audrey A Fast DO, Audrey A Comments: DUE IN DECEMBER Doppler Ultrasound OtherBy: Fast DO, On: 06-Aug-2017 Intent Audrey A Fast DO, Audrey A Comments: left leg SCREENING DIGITAL TOMOSYNTHESIS OF On: 06-Aug-2017 Intent BREAST (74715)By: Fast DO, Audrey A Fast DO, Audrey A Flu Vaccine (Quadrivalent) 40399Ie: On: 06-Aug-2017 Intent Fast DO, Audrey A Fast DO, Audrey A Comments: Lot #:[id number] date:03/11/18Amount given:0.5mlRoute: IMSite given: deltoidGiven by: ARABELLA Burgos Radiology - Chest- PA and LatBy: On: 02-May-2017 Intent Fast DO, Audrey A Fast DO, Audrey A Cartoid DopplerBy: Fast DO, Audrey A On: 02-May-2017 Intent Fast DO, Audrey A ELECTROCARDIOGRAM, COMPLETE (ECG) On: 02-May-2017 Intent (44730)By: Fast DO, Audrey A Fast DO, Comments: ekg- lvh with poor r wave progression no change sinus and no st/t wave changes Audrey A Flu Vaccine (Quadrivalent) 10934Bj: On: 03-Aug-2016 Intent Fast DO, Audrey A Fast DO, Audrey A Comments: FLUlot: [id number]:02/07site:Lt deltoidroute:IMdose:.5mlARABELLA VAZQUEZ Cartoid DopplerBy: Fast DO, Audrey A On: 05-Jun-2016 Intent Fast DO, Audrey A Comments: bilateral MAMMOGRAM, SCREENING, BOTH BREAST On: 05-Jun-2016 Intent (62839)By: Fast DO, Audrey A Fast DO, Comments: nov Audrey A ELECTROCARDIOGRAM, COMPLETE (ECG) On: 05-Jun-2016 Intent (44370)By: Fast DO, Audrey A Fast DO, Comments: [...] B12lot:5200exp:02/07site:lt deltroute:IMdose:ARABELLA BANSAL DEXA SCAN AXIAL SKELETON (31635)By: On: 12-Nov-2015 Intent Fast DO, Audrey A Fast DO, Audrey A MAMMOGRAM, SCREENING, BOTH BREAST On: 14-Jul-2015 Intent (49553)By: Fast DO, Audrey A Fast DO, Audrey A Cartoid DopplerBy: Fast DO, Audrey A On: 14-Jul-2015 Intent Fast DO, Audrey A Flu Vaccine (Quadrivalent) 14139Br: On: 14-Jul-2015 Intent Fast DO, Audrey A Fast DO, Audrey A Comments: Lot #:[id number] date: 02/2016Amount given:prefilled syringeSite given:L Dltd, IMGiven by: ANA Caruso and ABN signed ADMINISTRATION OF INFLUENZA VIRUS On: 14-Jul-2015 Intent VACCINE (G0008)By: Fast DO, Audrey A Fast DO, Audrey A EKG (58329)By: Fast DO, Audrey A On: 08-Jul-2014 Intent Fast DO, Audrey A Comments: ekg showed normal sinus rhythym, normal axis, no acute st/t wave changes lvh - poor r wave progresxsion no change Echo CompleteBy: Fast DO, Audrey A On: 08-Jul-2014 Intent Fast DO, Audrey A FLU VAC, SPLIT, >3 YEARS, INTRAMUSC On: 08-Jul-2014 Intent (70427)By: Fast DO, Audrey A Fast DO, Comments: Lot:[id number]:03/23/15Dose:0.5mLRoute:IMSite:L DltdGiven By:GRACIELA signed Audrey A ADMINISTRATION OF INFLUENZA VIRUS On: 08-Jul-2014 Intent VACCINE (G0008)By: Fast DO, Audrey A Fast DO, Audrey A MAMMOGRAM, SCREENING, BOTH BREAST On: 24-Jun-2014 Intent (99391)By: Fast DO, Audrey A Fast DO, Audrey A EKG (47198)By: Fast DO, Audrey A On: 24-Jun-2014 Intent Fast DO, Audrey A Comments: ekg showed normal sinus rhythym, normal axis, no acute st/t wave changes sinus edy- lvh no change in r wave Eprescribed prescriptions (G8553)By: On: 28-Jan-2014 Intent Fast DO, Audrey A Fast DO, Audrey A Eprescribed prescriptions (G8553)By: On: 29-Dec-[address] - Abdomen & Pelvis Stone On: 29-Dec-2013 Intent ProtocolBy: Nelson Sabina NIETO Pelvic and Breast, Medicare On: 24-Oct-2013 Intent (G0101)By: Kindra Vargas DXA, BONE DENSITY, AXIAL SKELETON On: 28-May-2013 Intent (26315)By: Fast DO, Audrey A Fast DO, Comments: sep Audrey A Eprescribed prescriptions (G8553)By: On: 28-May-2013 Intent Kindra Vargas MAMMOGRAM, SCREENING, BOTH BREASTS On: 22-Jan-2013 Intent (10353)By: Fast DO, Audrey A Fast DO, Comments: february Audrey A Eprescribed prescriptions (G8553)By: On: 22-Jan-2013 Intent Kindra Vargas Eprescribed prescriptions (G8553)By: On: 15-Oct-2012 Intent Kindra Vargas Rocephon Injection, 1 Gm (J0696)By: On: 09-Sep-2012 Intent Fast DO, Audrey A Fast DO, Audrey A Comments: [id number] 5.141 gram,plit into 2 injections of 2ml with lidocaine 1%R hip, IMMegan Eprescribed prescriptions (G8553)By: On: 09-Sep-2012 Intent Kindra Vargas EKG (83814)By: Fast DO, Audrey A On: 30-Aug-2012 Intent [...] MAMMOGRAM, SCREENING, BOTH BREASTS On: 12-Dec-2011 Intent (07978)By: Fast DO, Audrey A Fast DO, Comments: a A TDAP VACCINE >7 IM (21292)By: [place] On: 17-May-2011 Intent DO, Audrey A Fast DO, Audrey A Comments: Lot #:[id number] date:mount given:0.5mlRoute: IMSite given:left deltGiven by: ARABELLA Burgos EKG (85869)By: Kindra Vargas On: 17-May-2011 Intent Comments: ekg showed normal sinus rhythym, normal axis, no acute st/t wave changes poor r wave progerssion- lvh no change DXA, BONE DENSITY, AXIAL SKELETON On: 17-May-2011 Intent (74052)By: Fast DO, Audrey A Fast DO, Comments: auga A Breast Screening - BilateralBy: Fast On: 06-Sep-2010 Intent DO, Audrey A Fast DO, Audrey A Comments: bilateral mammo MAMMOGRAM, SCREENING, BOTH BREASTS On: 02-Sep-2010 Intent (92195)By: Fast DO, Audrey A Fast DO, Audrey A Solu -Medrol Injection, 125 mg On: 25-Apr-2010 Intent (J2930)By: Bc BERG, Shandra Denney Comments: 2ml given im rt hip [id number] exp 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 EKG (69999)By: Kindra Vargas On: 01-Feb-2010 Intent Comments: ekg- sinus edy lvh no acute change MAMMOGRAM, SCREENING, BOTH BREASTS On: 18-Aug-2009 Intent (72301)By: Fast DO, Audrey A Fast DO, Audrey A DXA, BONE DENSITY, AXIAL SKELETON On: 18-Aug-2009 Intent (01392)By: Fast DO Audrey A Fast DO, Comments: oct Audrey A Bio Z (54597)By: Fast DO, Audrey A On: 12-May-2009 Intent Fast DO, Audrey A Comments: high svr on bioz normal cardiac output Renal Duplex ScanBy: Fast DO, Audrey On: 12-May-2009 Intent A Fast DO, Audrey A Bio Z (03210)By: Fast DO, Audrey A On: 11-Jan-2009 Intent Fast DO, Audrey A Comments: good cardiac output and svr -- bpis good EKG (69497)By: Fast DO, Audrey A On: 11-Jan-2009 Intent Fast DO, Audrey A Comments: ekg showed normal sinus rhythym, normal axis, no acute st/t wave changes lvh RIGO (Ankle Brachial Index) On: 30-Sep-2008 Intent ([id number])By: Floresita Parker LPN ADMINISTRATION OF INFLUENZA VIRUS On: 10-Jul-2008 Intent VACCINE (G0008)By: Saida Oreilly LPN FLU VAC, SPLIT, >3 YEARS, INTRAMUSC On: 10-Jul-2008 Intent ([id number])By: Saida Oreilly LPN Comments: 0.5cc given im lt loyd HPako MAMMOGRAM, SCREENING, BOTH BREASTS On: 30-Jun-2008 Intent ([id number])By: Fast DO, Audrey A Fast DO, Audrey A RIGO (Ankle Brachial Index) On: 30-Jun-2008 Intent ([id number])By: Fast DO Audrey A Fast DO, Comments: nov Audrey A Radiology - Knee - Left - Weight On: 19-May-2008 Intent BearingBy: Fast DO, Audrey A Fast DO, Audrey A Venous Doppler - BothBy: Fast DO, On: 22-Apr-2008 Intent Audrey A Fast DO, Audrey A Comments: lower ext Bio Z ([id number])By: Fast DO, Audrey A On: 22-Apr-2008 Intent Fast DO, Audrey A Comments: parameters good EKG ([id number])By: Fast DO, Audrey A On: 22-Apr-2008 Intent Fast DO, Audrey A Comments: ekg showed normal sinus rhythym, normal axis, no acute st/t wave changes poor r wave progression unchanged Echo CompleteBy: Fast DO, Audrey A On: 22-Apr-2008 Intent Fast DO, Audrey A RIGO (Ankle Brachial Index) On: 07-Aug-2007 Intent ([id number])By: Marium Liu RN RIGO (Ankle Brachial Index) On: 26-Jul-2007 Intent ([id number])By: Fast DO, Audrey A Fast DO, Audrey A DXA, BONE DENSITY, AXIAL SKELETON On: 26-Jul-2007 Intent ([id number])By: Fast DO, Audrey A Fast DO, Comments: in sep Audrey A MAMMOGRAM, SCREENING, BOTH BREASTS On: 26-Jul-2007 Intent ([id number])By: Fast DO, Audrey A Fast DO, Audrey A Pulse Oximetry ([id number])By: Noe BETTENCOURT, On: 20-Nov-2006 Intent Marium Holter Moniter ([id number])By: Ly On: 10-Sep-2006 Intent Sridevi Holter Moniter ([id number])By: [place] NIETO, On: 30-Jul-2006 Intent Audrey A [...] Patient Instructions Indication: Herpes zoster without complication [facility] : How to access health [...] Dysuria : Patient Instructions Indication: Dysuria Encounters Office Visit On: 30-Sep-2018 8:55 Encounter Reason: Follow up tests - Date: (09/25 blood work)., [ADDITIONAL REASON] Follow up for chronic medical issues - The patient feels well with no complaints End: 30-Sep-2018 19:46 , has good energy level and is [...] Follow up for chronic medical issues: still [id number] shots in the eye- they have been [...] current emotional problems. Note for Physical exam: [facility]- she is going every 6 [...] current emotional problems. Note for Physical exam: [facility] Encounter Diagnosis: [facility], [...] The patient does have durable power of trial attorney and living will. The patient [...] 5 pounds- had eye issue and saw Miko- has carotid dopplers set up- had hemianopsia [...] The patient does have durable power of trial attorney and living will. The patient [...] only taking 5000 5 days aweek and 11924 twice a week- - take 33841 4 x a week- she was out [...] raised above the skin. The rash End: 2-Aug-2010 8:09 was first seen on the entire [...] and she sa End: 02-Nov-2009 11:04 w [facility] and no polyps recheck 5 years- [...] for chronic medical issues: didnt get colonsocopy- [facility] office never called her to schedule- and [...] Follow up for chronic medical issues: only takign mobic a couple times a week and really [...] Internal Medicine End: 12-Jun-2006 19:47 Payers MedicareAnthem /[facility], [facility]/JOESPH CHAVEZ CONCHA; a guarantor
--- OUTSIDE RECORDS SUMMARY | 2018-12-16 23:20 | XMS RPT_ITS | Continuity of Care Document ---
:1935 Author Organization [facility] Address [address] [facility] [address] [place] [address] Phone Care Team Providers Name Role Phone [...] {Package(s)} Refills: 0 Ordered:20-Nov-2006 [place] [facility] Start : 20-Nov-2006 End [...] : 30-Nov-2015 End : 30-Dec-2015 Inactive ZOSTAVAX, 95370XMR/0.65ML (Subcutaneous Solution Reconstituted) 1 For Solution x1-bring [...] : 05-Jun-2016 End : 05-Jun-2016 Discontinued ERGOCALCIFEROL, 78160YWAM (Oral Capsule) 1 (one) Capsule twice a [...] 500MG (Oral Capsule) 1 (one) Capsule bid [id number] for 0 days Quantity: 20 {Capsule} Refills: [...] : 14-Jun-2016 End : 14-Jun-2016 Discontinued Comments:Lot #:[id number] date:07/2018Amount given:60mg/mlRoute: SQSite given: left armGiven by: [...] W/WO Contrast Result: Comments: See Note; NOTES: [facility] Imaging Services [address] [place] [address] CTA Neck W/WO Contrast MR#: [id number] Acct: [id number] Name: MANISH KERN Rep #: [id number] : 1935 F 83 From: Alvaro Lancaster MD PCP: Audrey Rodriguez DO Status: REG CLI Study: CTA Neck W/WO Contrast Date of Exam: 07/02/18 Exam# [id number] Ordering Dr: Audrey Rodriguez DO STUDY: CT [...] Normal pharyngeal and laryngeal structures. No ac knik intracranial process is evident in limited evaluation. [...] or vertebral artery stenosis. NASCET Criteria : Returned Case Inspector H, et al. Quantitative Vascular Measurements in Arterial Occlusive Disease. RadioGraphics 2005;25:4926-7567. Electronically Signed: Alvaro Lancaster, at 17:50 EDT Tel , Service support , CC: Audrey Rodriguez DO Executive Chairman: Signed 15-Jun-2018 Carotid Duplex Ultrasound Result: Comments: See Note; NOTES: [facility] Cardiovascular Services [address] [place] [address] Carotid Duplex Ultrasound 06/11/18 1013 MR#: [id number] Acct: [id number] Name: MANISH ERICKSON Rep #: [id number] : 1935 82 From: Archie Shipman MD Attending Dr: Audrey Rodriguez DO Status: REG CLI Ordering Dr: Audrey Rodriguez DO Date: 06/11/18 Location: [facility] Sex: F C Admitted: Reason For [...] left verte bral artery. Procedure Carotid Duplex 25337. The exam was diagnostic. Exam performed in [...] Performed By: Leanna Scanlon, RDCS, RVT 06/15/18 8333 Date Archie Fowler MD CC: Audrey Rodriguez DO; Audrey Rodriguez DO Date Dictated: 06/11/18 1013 Date Transcribed: 06/15/18 1418 Executive Chairman: Signed 01-Jan-2018 Dexa Bone Density Study Result: Comments: See Note; NOTES: [facility] Imaging Services [address] [place] [address] Dexa Bone Density Study MR#: [id number] Acct: [id number] Name: MANISH KERN Rep #: [id number] : 1935 F 82 From: Arjun Weathers MD PCP: Audrey Rodriguez DO Status: REG CLI Study: Dexa Bone Density Study Date of Exam: 01/01/18 Exam# [id number] Ordering Dr: Audrey Rodriguez DO STUDY: DUAL [...] Arjun Weathers MD at 14:40 EDT Tel [phone], Service support , CC: Audrey Rodriguez DO Executive Chairman: Signed 25-Aug-2017 SCREENING MAMM (CAD), BILAT Result: Comments: See Note; NOTES: [facility] Imaging Services [address] [place] [address] SCREENING MAMM (CAD), BILAT MR#: [id number] Acct: [id number] Name: MANISH KERN Rep #: [id number] : 1935 F 82 From: Arjun Weathers MD PCP: Audrey Rodriguez DO Status: PRE CLI Study: SCREENING MAMM (CAD), BILAT Date of Exam: 08/25/17 Exam# [id number] Ordering Dr: Audrey Rodriguez DO MAMM OGRAPHY [...] delay biopsy of a clinically suspicious abnormality. [id number] Electronically Signed: Arjun Weathers MD at 9:39 EST Tel [phone], Service support , CC: Audrey Rodriguez DO Executive Chairman: Signed 07-Aug-2017 Venous Duplex Lower Extremity Result: Comments: See Note; NOTES: [facility] Cardiovascular Services [address] [place] [address] Venous Duplex US, Unilateral 08/06/17 1403 MR#: [id number] Acct: [id number] Name: MANISH LOGAN Rep #: [id number] : 1935 82 From: Archie Shipman MD [...] Date Dictated: 08/06/17 140 Date Transcribed: 08/07/172024 Executive Chairman: Signed 23-Jun-2017 Echocardiogram Complete Result: Comments: See Note; NOTES: [facility] Cardiovascular Services [address] [place] [address] Echo Complete 06/22/17 1002 MR#: [id number] Acct: [id number] Name: CONCHAMANISH ep #: [id number] : 1935 81 From: Mac Smith MD Attending Dr: Coco BERG,Elbert Status: REG CLI Ordering Dr: Elbert Sepulveda MD Date: 06/22/17 Location: [facility] Sex: F C Admitted: Reason For [...] Dictated: 06/22/17 1002 Date Transcribed: 06/23/17 1203 Executive Chairman: Signed 03-May-2017 Carotid Duplex Ultrasound Result: Comments: See Note; NOTES: [facility] Cardiovascular Services [address] [place] [address] Carotid Duplex Ultrasound 05/03/17 1338 MR#: [id number] Acct: [id number] Name: MANISH ERICKSON Rep #: [id number] : 1935 81 From: Archie Shipman MD [...] the left vertebral artery. Procedure Carotid Duplex 07061. The exam was diagnostic. Exam performed in department. Interpretation Summary Mild (<50%) stenosis right extrac ranial internal carotid. Mild (<50%) stenosis left extracranial internal carotid. Flow within the vertebral arteries is antegrade bilaterally. Ordering Physician: Audrey Rodriguez Performed By: Lloyd Barclay Rayne 05/03/17 1620 Date Archie Shipman MD CC: Audrey Rodriguez DO Date Dictated: 05/03/17 1338 Date Transcribed: 05/03/17 162 Executive Chairman: Signed 02-May-2017 Chest PA and Lateral Result: Comments: See Note; NOTES: [facility] Imaging Services [address] [place] [address] Chest PA and Lateral MR#: [id number] Acct: [id number] Name: CONCHAMANISH Rep #: [id number] : 1935 F 81 From: Arjun Weathers MD PCP: Audrey Rodriguez DO Status: REG CLI Study: Chest PA and Lateral Date of Exam: 05/02/17 Exam# [id number] Ordering Dr: Audrey Rodriguez DO STUDY: X-RAY [...] Arjun Weathers MD at 15:31 EDT Tel [phone], Service support , CC: Audrey Rodriguez DO Executive Chairman: Signed 11-Aug-2016 Bilat Scrn Digital AND CAD Result: Comments: See Note; NOTES: [facility] Imaging Services [address] [place] [address] Verdana 4d Bilat Scrn Digital AND CAD MR#: [id number] Acct: [id number] Name: MANISH KERN Rep #: [id number] : 1935 F 81 From: Arjun Weathers MD PCP: Audrey Rodriguez DO Status: REG CLI Study: Bilat Scrn Digital AND CAD Date of Exam: 08/11/16 Exam# [id number] Ordering Dr: Audrey Rodrigeuz DO MAMMOGRAPHY - BILATERAL SCREENING REASON FOR [...] delay biopsy of a clinically suspicious abnormality. [id number] Electronically Signed: Arjun Weathers MD at 13:43 EST Te l [phone], Service support [phone], CC: Audrey Rodriguez DO Executive Chairman: Signed 14-Jun-2016 Carotid Duplex Ultrasound Result: Comments: See Note; NOTES: [facility] Cardiovascular Services [address] [place] [address] Carotid Duplex Ultrasound 06/08/16 1257 MR#: [id number] Acct: [id number] Name: MANISH HADLEY Rep #: [id number] : 1935 80 From: Max Bustillos MD Attending Dr: Audrey Rodriguez DO Status: REG CLI Ordering Dr: Audrey Rodriguez DO Date: 06/08/16 Location: [facility] Sex: F C Admitted: Reas on [...] Dictated: 06/08/16 1257 Date Transcribed: 06/14/16 1220 Executive Chairman: Signed 05-Apr-2016 Knee 4 or More Views Result: Comments: See Note; NOTES: [facility] Imaging Services [address] [place] [address] Verdana 4d Knee 4 or More Views MR#: [id number] Acct: [id number] Name: MANISH KERN Rep #: [id number] : 1935 F 80 From: Arjun Weathers MD PCP: Audrey Rodriguez DO Status: REG CLI Study: Knee 4 or More Views Date of Exam: 04/05/16 Exam# [id number] Ordering Dr: Hayley Rodriguez DO STUDY: X-RAY [...] Weathers MD 04/05 at 10:47 EDT Tel [phone], Service support [phone], RAD/Knee 4 or More Views IMPRESSION: Degenerative arthrosis. Chondrocalcinosis. Small joint effusion. Electronically Signed: Arjun Weathers MD at 10:47 EDT Tel [phone], Service support [phone], CC: Audrey Rodriguez DO Executive Chairman: Signed 28-Dec-2015 Dexa Bone Density Study () Result: Comments: See Note; NOTES: [facility] Imaging Services [address] [place] [address] Verda 4d Dexa Bone Density Study () MR#: [id number] Acct: [id number] Name : MANISH KERN Rep #: [id number] : 1935 F 80 From: Arjun Weathers MD PCP: Audrey Rodriguez DO Status: REG CLI Study: Dexa Bone Density Study () Date of Exam: 12/28/15 Exam# [id number] Marina velazuqez Dr: Audrey Rodriguez DO STUDY: DUAL ENERGY [...] Society for Clinical Densitometry http://www.iscd.org 3. Na [facility] Osteoporosis Foundation http://www.nof.org Electronically Signed: Arjun Weathers MD at 12:54 EDT Tel [phone], Service support [phone], CC: Syl Rodriguez DO Executive Chairman: Signed 12-Nov-2015 ELECTROCARDIOGRAM, COMPLETE (ECG) (16944) Comments: ekg showed normal sinus rhythym, normal axis, no acute st/t wave changes lvh no change Result: [MEASUREMENTS ANALYSIS] Date of Test: 11/12/2015 10:43:53; Heart Rate: 54; NE Interval: 174; QRS: 98; QT Interval: 448; Corrected QT Interval (QTc): 438; P Wave [place]: 36; QRS Wave [place]: -21; T Wave [place] : 18; Blood Pressure: 168/84 [ECG DIAGNOSTIC STATEMENTS] Date of Test: 11/12/2015 10:43:53; Summary: Sinus Bradycardia Voltage criteria for LVH (R(I)+S(III) exceeds 2.50 mV) -Voltage criteria w/o ST/ T abnormality may be normal. -Poor R-wave progression -nonspecific -consider old anterior infarct. BORDERLINE 11-Aug-2015 Carotid Duplex Ultrasound Result: Comments: See Note; NOTES: [facility] Cardiovascular Services [address] [place] [address] Carotid Duplex Ultrasound 08/05/15 0957 MR#: [id number] Acct: [id number] Name: MANISH KERN Rep #: [id number] : 1935 80 From: Max Bustillos MD [...] the left bulb . Procedure Carotid Duplex 32097. Exam performed in department. Interpretation Summary Mild (<50%) stenosis right extracranial internal carotid. Mild (<50%) stenosis left extracra nial internal carotid. Flow within the vertebral arteries is antegrade bilaterally. Ordering P hysician: Audrey Rodriguez Performed By: Isabel Kern RDCS 08/11/15802 Date B tim Bustillos MD CC: Audrey Rodriguez DO Date Dictated: 08/05/15 0957 Date Transcribed: 08/11/15802 Executive Chairman: Signed 10-Aug-2015 Bilat Scrn Digital AND CAD Result: Comments: See Note; NOTES: [facility] Imaging Services [address] [place] [address] Verdana 4d Bilat Scrn Digital AND CAD MR#: [id number] Acct: [id number] Name: MANISH KERN Rep #: [id number] : 1935 F 80 From: Arjun Weathers MD PCP: Audrey Rordiguez DO Status: REG CLI Study: Bilat Scrn Digital AND CAD Date of Exam: 08/10/15 Exam# [id number] Ordering Dr: Audrey Rodriguez DO MAMMOGRAPHY - [...] Arjun Weathers MD at 13:35 EST Tel [phone], Service support [phone], CC: Audrey Rodriguez DO Executive Chairman: Signed 28-Jul-2014 Bilat Scrn Digital & CAD Result: Comments: See Note; NOTES: [facility] Imaging Services [address] [place] [address] Breast Imaging Report MR#: [id number] Acct: [id number] Name: MANISH KERN Rep #: [id number] : 1935 F 79 From: Arjun Weathers MD PCP: Audrey Rodriguez DO Status: REG CLI Exam# [id number] Ordering Dr: Audrey Rodriguez DO MAMMOGRAPHY - [...] Arjun Weathers MD at 10:23 EST Tel [phone], S ervice support [phone], CC: Audrey Rodriguez DO Executive Chairman: Signed 16-Jul-2014 Echocardiogram Complete Result: Comments: See Note; NOTES: [facility] Cardiovascular Services [address] [place] [address] Echo Complete 07/15/14 1204 MR#: [id number] Acct: [id number] Name: DO YUVAL KERN Rep #: [id number] : 1935 79 From: Jhon Parker MD Attending Dr: Audrey Rodriguez DO Status: REG CLI Ordering Dr: Audrey Rodriguez DO Date: 07/15/14 Location: [facility]: F C [facility], Color [...] DO Date Dictated: 06/25 Date Transcribed: 07/16/141208 Executive Chairman: Signed 06-Jul-2014 Carotid Duplex Ultrasound Result: Comments: See Note; NOTES: [facility] Cardiovascular Services [address] [place] [address] 06/26/14 0932 MR#: [id number] Acct: [id number] Name: MANISH KERN Rep #: [id number] [...] in the left bulb. Procedure Carotid Duplex 86764. The exam was diagnostic. Exam performed in [...] Date Dictate d: 06/26/14931 Date Transcribed: 06/28/142152 Executive Chairman: Signed 29-Dec-2013 Abdomen/Pelvis without Cont Result: Comments: See Note; NOTES: [facility] Imaging Services [address] [place] [address] CAT Scan Report MR#: [id number] Acct: [id number] Name: CONCHAMANISH Rep #: [id number] : 1935 F 78 From: Medhat Leach MD PCP: Audrey Rodriguez DO Status: REG CLI Study: Abdomen/Pelvis without Cont Date of Exam: 12/29/13 Exam# [id number] Ordering Dr: Sabina Damon DO GELA DY: [...] at 13:28 EDT Tel , Service support [phone], CC: Audrey Rodriguez DO; Sabina Damon DO Executive Chairman: Signed 14-Oct-2013 Dexa Bone Density Study (HP) Result: Comments: See Note; NOTES: [facility] Imaging Services [address] [place] [address] Bone Density Report MR#: [id number] Acct: [id number] Name: MANISH KERN Rep #: [id number] : 1935 F 78 From: Arjun Weathers MD PCP: Audrey Rodriguez DO Status: REG CLI Study: Dexa Bone Density Study (HP) Date of Exam: 10/14/13 Exam# [id number] Ordering Dr: Audrey Rodriguez DO STUDY: DUAL [...] M.D. at 15:58 EST , Service support [phone], CC: Audrey Rodriguez DO Executive Chairman: Signed Immunization Name Dates Details Influenza (3 [...] DM Status: Active Sister 1 Comments: , [place]- age 52 Status: Active Sister 2 Comments: [...] Height 0 in Head Circumference 0.00 cm 33-Obl-451946:39 Temperature 97.5 f Comments: Method: Oral Pulse [...] Description Value Details :32 CREATININE FINGERSTICK Comments: [facility] [place] [address] [place], [place] [id number] EGFR WB > 60.0000 mL/min (Normal) CREATININE WB 0.7 mg/dL (Normal) Range: 0.55-1.02 5-Oxf-485543:21 CBC with auto diff (43010) Comments: PATIENT WAS FASTINGPERFORMED BY: [facility] Fxlkch6812 [facility] [id number] Immature Grans (Abs) 0.0 {x10E3/uL} (Normal) Range: [...] 3.77-5.28 WBC 5.9 {x10E3/uL} (Normal) Range: 3.4-10.8 6-Ito-132666:21 LIPID PANEL (62019) Comments: PATIENT WAS FASTINGPERFORMED BY: [employer] Cdrleh7063 [facility] [id number] LDL/HDL Ratio 2.3 {ratio} (Normal) Range: 0.0-3.2 Comments: LDL/HDL Ratio Men Women 1/2 Avg.Risk 1.0 1.5 Av g.Risk 3.6 3.2 2X Avg.Risk 6.2 5.0 3X Avg.Risk 8.0 6.1 LDL Cholesterol Calc 94 mg/dL (Normal) Range: 0-99 VLDL Cholesterol Alexander 30 mg/dL (Normal) Range: 5-40 HDL Cholesterol 41 mg/dL (Normal) Triglycerides 149 mg/dL (Normal) Range: 0-149 Cholesterol, Total 165 mg/dL (Normal) Range: 100-199 1-Pzk-780019:21 MICROALBUMIN: CREATININE RATIO Comments: PATIENT WAS FASTINGPERFORMED BY: [facility] Vgdudf6551 [facility] [id number] (80049) AND (57142) Alb/Creat Ratio 6.6 {mg/g_creat} (Normal) Range: 0.0-30.0 Comments: Normal: 0.0 - 30.0 Albuminuria: 31.0 - 300.0 Clinical albuminuria: >300.0 Albumin, Urine 3.9 ug/mL (Normal) Creatinine, Urine 58.9 mg/dL (Normal) 2-Fkp-898894:21 METABOLIC PANEL, COMPREHENSIVE Comments: PATIENT WAS FASTINGPERFORMED BY: KAIL[facility] Xpsoin6697 [facility] [id number]; appt 09/30 (98452) ALT (SGPT) 19 [iU]/L (Normal) Range: 0-32 [...] 8-27 Glucose 104 mg/dL (Abnormal) Range: 65-99 7-Ybl-758817:21 HGB A1C (66726) Comments: PATIENT WAS FASTINGPERFORMED BY: [facility] Eslxys3000 [facility] [id number] Hemoglobin A1c 5.6 % (Normal) Range: 4.8-5.6 Comments: . Prediabetes: 5.7 - 6.4 Diabetes: >6.4 Glycemic control for adults with diabetes: <7.0 19-Jwy-89797:29 Hemoglobin A1c 5.5 % (Normal) Comments: PATIENT WAS FASTINGPERFORMED BY: [employer] [facility] [id number] Range: 4.8-5.6 Comments: . Prediabetes: 5.7 - 6.4 Diabetes: >6.4 Glycemic control for adults with diabetes: <7.0 :29 VITAMIN B-12 (CYANOCOBALAMIN) Comments: PATIENT WAS FASTINGPERFORMED BY: [facility] Fglthw2295 Carriz[address] RoadDublin [place] [id number] ([address]) Vitamin B12 583 pg/mL (Normal) Range: 232-1245 :29 Vitamin D Hydroxy (87636) Comments: PATIENT WAS FASTINGPERFORMED BY: [facility] Azakrz1555 [address] [facility] [place] [id number] Vitamin D, 25-Hydroxy 54.1 ng/mL (Normal) Range: 30.0-100.0 Comments: Vitamin D deficiency has been defined by the Commerce ofWvumed[facility] Hospitalcine and an Endocrine Society practice guideline as alevel of serum 25-OH vitamin D less than 20 ng/mL (1,2).The Endocrine Society went on to further define vitamin Dinsufficiency as a level between 21 and 29 ng/mL (2).1. IOM (Commerce of Medicine). 2010. Dietary reference intakes for calcium and D. [place]: The National Academies Press.2. Freddy MF, Pineda NC, Brody KHOURY, et al. Evaluation, treatment, and prevention of vitamin D deficiency: an Endocrine Society clinical practice guideline. JCEM. 2010; 96(7):1911-30. :29 LIPID PANEL (43236) Comments: PATIENT WAS FASTINGPERFORMED BY: [facility] Brzlel3468 [address] [facility] [place] [place] [id number] LDL/HDL Ratio 2.4 {ratio} (Normal) Range: 0.0-3.2 Comments: LDL/HDL Ratio Men Women 1/2 Avg.Risk 1.0 1.5 Av g.Risk 3.6 3.2 2X Avg.Risk 6.2 5.0 3X Avg.Risk 8.0 6.1 LDL Cholesterol Calc 94 mg/dL (Normal) Range: 0-99 VLDL Cholesterol Alexander 28 mg/dL (Normal) Range: 5-40 HDL Cholesterol 40 mg/dL (Normal) Triglycerides 140 mg/dL (Normal) Range: 0-149 Cholesterol, Total 162 mg/dL (Normal) Range: 100-199 79-Jhj-28959:29 METABOLIC PANEL, COMPREHENSIVE Comments: PATIENT WAS FASTINGPERFORMED BY: [facility]Co[facility] CenterIykame8186 [facility] [id number]; will discuss at aura 06/24 (52648) ALT (SGPT) 13 [iU]/L (Normal) Range: 0-32 [...] 8-27 Glucose 97 mg/dL (Normal) Range: 65-99 95-Sjo-049088:03 Microscopic Examination Comments: PATIENT WAS FASTINGPERFORMED BY: [facility]Co[facility] CenterAkcnpv8877 [facility] [id number] Bacteria Few (Normal) Epithelial Cells (non renal) 0-10 {/hpf} (Normal) Range: 0 - 10 RBC None seen {/hpf} (Normal) Range: 0 - 2 WBC 0-5 {/hpf} (Normal) Range: 0 - 5 :03 URINALYSIS, W/ MICRO (98246) Comments: PATIENT WAS FASTINGPERFORMED BY: Relative.aiNew [facility] Medical CenterDegxya0086 [facility] [id number] Microscopic Examination See below: (Normal) Comments: Microscopic was indicated and was performed. Nitrite, Urine Negative (Normal) Urobilinogen,Semi-Qn 0.2 mg/dL (Normal) Range: 0.2-1.0 Bilirubin Negative (Normal) Occult Blood Negative (Normal) Ketones Negative (Normal) Glucose Negative (Normal) Protein Negative (Normal) WBC Esterase Trace (Abnormal) Appearance Clear (Normal) Urine-Color Yellow (Normal) pH 7.5 (Normal) Range: 5.0-7.5 Specific [place] 1.010 (Normal) Range: 1.005-1.030 08-Bff-314002:03 MICROALBUMIN: CREATININE RATIO Comments: PATIENT WAS FASTINGPERFORMED BY: Relative.aiNew [facility] Medical CenterSxmcoo8345 [facility] [id number] (85279) AND (93783) Alb/Creat Ratio <8.4 {mg/g_creat} (Normal) Range: 0.0-30.0 Albumin, Urine <3.0 ug/mL (Normal) Creatinine, Urine 35.9 mg/dL (Normal) :03 CBC W/AUTO DIFF WBC (89677) Comments: PATIENT WAS FASTINGPERFORMED BY: Relative.aiNew [facility] Medical CenterBykenb2078 [facility] [id number] Immature Grans (Abs) 0.0 {x10E3/uL} (Normal) Range: [...] 3.77-5.28 WBC 5.4 {x10E3/uL} (Normal) Range: 3.4-10.8 87-Vdj-203116:03 METABOLIC PANEL, COMPREHENSIVE Comments: PATIENT WAS FASTINGPERFORMED BY: [facility]CoNew [facility] CenterOlxutx9232 [facility] [id number]; review on 03/13 (54750) ALT (SGPT) 13 [iU]/L (Normal) Range: 0-32 [...] 8-27 Glucose 104 mg/dL (Abnormal) Range: 65-99 60-Zel-580356:03 LIPID PANEL (86246) Comments: PATIENT WAS FASTINGPERFORMED BY: [facility] LabCertona6370 [facility] [id number] LDL/HDL Ratio 2.5 {ratio} (Normal) Range: 0.0-3.2 Comments: LDL/HDL Ratio Men Women 1/2 Avg.Risk 1.0 1.5 Av g.Risk 3.6 3.2 2X Avg.Risk 6.2 5.0 3X Avg.Risk 8.0 6.1 LDL Cholesterol Calc 112 mg/dL (Abnormal) Range: 0-99 VLDL Cholesterol Alexander 22 mg/dL (Normal) Range: 5-40 HDL Cholesterol 44 mg/dL (Normal) Triglycerides 108 mg/dL (Normal) Range: 0-149 Cholesterol, Total 178 mg/dL (Normal) Range: 100-199 65-Szn-121325:03 VITAMIN B-12 (CYANOCOBALAMIN) Comments: PATIENT WAS FASTINGPERFORMED BY: [facility] Xiwpuw5657 [facility] [id number] (08571) Vitamin B12 453 pg/mL (Normal) Range: 232-1245 25-Cup-572970:06 Vitamin D Hydroxy (32705) Comments: PATIENT WAS FASTINGPERFORMED BY: [facility] Ogjxie5307 [facility] [id number] Vitamin D, 25-Hydroxy 69.0 ng/mL (Normal) Range: 30.0-100.0 Comments: Vitamin D deficiency has been defined by the Commerce ofMedicine and an Endocrine Society practice guideline as alevel of serum 25-OH vitamin D less than 20 ng/mL (1,2).The Endocrine Society went on to further define vitamin Dinsufficiency as a level between 21 and 29 ng/mL (2).1. IOM (Commerce of Medicine). 2010. Dietary reference intakes for calcium and D. [place]: The National Academies Press.2. Freddy MF, Pineda EUBANKS, Brody KHOURY, et al. Evaluation, treatment, and prevention of vitamin D deficiency: an Endocrine Society clinical practice guideline. JCEM. 2010; 96(7):1911-30. 08-Khl-472814:06 VITAMIN B-12 (CYANOCOBALAMIN) Comments: PATIENT WAS FASTINGPERFORMED BY: [facility] [place] [id number] (02866) Vitamin B12 519 pg/mL (Normal) Range: 232-1245 48-Bif-504526:06 LIPID PANEL (83467) Comments: PATIENT WAS FASTINGPERFORMED BY: [facility] [facility] [id number] LDL/HDL Ratio 2.5 {ratio_units} (Normal) Range: 0.0-3.2 Comments: LDL/HDL Ratio Men Women 1/2 Avg.Risk 1.0 1.5 Av g.Risk 3.6 3.2 2X Avg.Risk 6.2 5.0 3X Avg.Risk 8.0 6.1 LDL Cholesterol Calc 100 mg/dL (Abnormal) Range: 0-99 VLDL Cholesterol Alexander 25 mg/dL (Normal) Range: 5-40 HDL Cholesterol 40 mg/dL (Normal) Triglycerides 127 mg/dL (Normal) Range: 0-149 Cholesterol, Total 165 mg/dL (Normal) Range: 100-199 66-Dqr-225967:06 METABOLIC PANEL, COMPREHENSIVE Comments: PATIENT WAS FASTINGPERFORMED BY: REPP70 [facility]123[facility] [id number]; review at 11/13 appt (77483) ALT (SGPT) 12 [iU]/L (Normal) Range: 0-32 [...] Glucose, Serum 91 mg/dL (Normal) Range: 65-99 40-Atd-81035:58 CBC W/Diff, Automated Comments: [facility] [address] [place], [place], [id number] Absolute Lymph 1.41 {X10_3/ul} (Normal) Range: 0.83-4.51 [...] (Normal) Range: 4.4-11.0 :58 Hemoglobin A1c Comments: [facility] [address] [place], [place], [id number] HGB A1C 5.7 % (Normal) Range: 4.2-6.3 31-Kcp-896943:09 Fecal Occult Blood , Office (Inhouse) (70191) Fecal Occult Blood , Office (Inhouse) Negative (Normal) Comments: error 5-Pif-982589:07 Basic Metabolic Profile (BMP) Comments: [facility] Uqzzjuzqsj9687 [facility] [address] [place], [place], [address] GAP 10 (Normal) Range: 5-15 CO2 27.0 [...] 7-18 GLU 98 mg/dL (Normal) Range: 70-110 0-Qis-500789:07 CBC-Complete Blood Cnt No Diff Comments: [facility] [address] [place], [address] MPV 10.8 fL (Normal) Range: 6.2-12.0 PLT [...] 4.2-5.4 WBC 6.2 K/mm3 (Normal) Range: 4.4-11.0 26-Jtd-180931:25 HgA1C , Office (23032) HgA1C , Office 5.6 % (Normal) Range: 4.6 - 7.1 86-Gmr-165033:25 Blood Glucose , Office (74956) Blood Glucose , Office 106 (Normal) 22-Hvk-009152:30 VITAMIN B-12 Comments: PATIENT WAS FASTINGPERFORMED BY: [employer]7 [facility] [id number] BY: [employer] [facility] [id number] (CYANOCOBALAMIN) (14216) Vitamin B12 511 pg/mL (Normal) Range: 211-946 48-Yep-753623:30 MICROALBUMIN: CREATININE Comments: PATIENT WAS FASTINGPERFORMED BY: [employer] [id number] BY: [employer] Ywqlun4090 [facility] Medical CenterKeyhole.coUNC Health Nash [id number] RATIO (77650) AND (29226) Microalb/Creat Ratio 7.0 {mg/g_creat} (Normal) Range: 0.0-30.0 Microalbumin, Urine 3.6 ug/mL (Normal) Creatinine, Urine 51.4 mg/dL (Normal) 18-Drr-995924:30 CBC W/AUTO DIFF WBC Comments: PATIENT WAS FASTINGPERFORMED BY: BN [facility] Tvhufxiabh7031 [facility] [id number] BY: CB [facility] Tgrufx4029 [facility] [id number] (11367) Immature Grans (Abs) 0.0 {x10E3/uL} (Normal) Range: [...] 3.77-5.28 WBC 6.1 {x10E3/uL} (Normal) Range: 3.4-10.8 78-Lfk-588723:30 METABOLIC PANEL, Comments: PATIENT WAS FASTINGPERFORMED BY: LabCo[address] [id number] BY: LabThe Wet SealNew Bridge Medical CenterEqbszu7433 [facility] [id number] COMPREHENSIVE (97215) ALT (SGPT) 13 [iU]/L (Normal) Range: 0-32 [...] Glucose, Serum 102 mg/dL (Abnormal) Range: 65-99 99-Sxu-268950:30 LIPOPROTEIN, BLD, BY NMR Comments: PATIENT WAS FASTINGPERFORMED BY: LabCo[address] [id number] BY: LabCoMichael [place] 1504370 [facility] [id number]; non-emergent till apt (56780) LP-IR Score 60 (Abnormal) Comments: INSULIN RESISTANCE MARKER <--Insulin Sensitive Insulin Resistant--> Percentile in Reference PopulationInsulin Resistance ScoreLP-IR Score Low 25th 50th 75th High <27 27 45 63 >63LP-IR Score is inaccurate if patient is non-fasting. .The LP-IR score is a laboratory developed i [facility] that has beenassociated with insulin [...] were developed and their performance characteristicsdetermined by [employer]. These assays have not been cleared by [...] 1600 - 2000 Very High > 2000 31-Hpn-293354:47 Urinalysis, Office (25663) UA - LEUKOCYTE ESTERASE Small (Normal) UA - NITRITE Negative (Normal) URINE UROBILINGN KOLBY TIMED Normal mg/dL (Normal) UA - PROTEIN Negative mg/dL (Normal) UA - PH 6.5 (Normal) UA - BLOOD Negative (Normal) UA - SPECIFIC GRAVITY 1.015 (Normal) UA - KETONES Negative mg/dL (Normal) UA - BILIRUBIN Negative (Normal) UA - GLUCOSE Negative (Normal) 08-Rkq-713925:42 URINE TEA CULTURE-IDENTIFICATN Comments: PATIENT NOT FASTINGPERFORMED BY: [employer] [facility] [id number] Information: SRC:UC (11429) Result 1 MUG (Normal) Comments: Mixed urogenital flora25,000-50,000 colony forming units per mL Urine Final report (Normal) Culture,Comprehensive 13-Has-013105:25 HgA1C , Office (95667) HgA1C , Office 5.4 % (Normal) Range: 4.6 - 7.1 00-Xim-035669:31 MICROALBUMIN: CREATININE Comments: PATIENT WAS FASTINGPERFORMED BY: [employer] [facility] [id number] BY: [employer] Interaction6370 [facility] [id number] RATIO (98617) AND (96319) Microalb/Creat Ratio 77.7 {mg/g_creat} (Abnormal) Range: 0.0-30.0 Microalbumin, Urine 30.3 ug/mL (Normal) Creatinine, Urine 39.0 mg/dL (Normal) 49-Zil-755183:31 CBC, PLATELETS & AUT DIFF Comments: PATIENT WAS FASTINGPERFORMED BY: [employer] Interactiveton1447 [facility] [id number] BY: LabCoNew Bridge Medical CenterHqgwrf6055 [facility] [id number] (12212) Immature Grans (Abs) 0.0 {x10E3/uL} (Normal) Range: [...] 3.77-5.28 WBC 5.7 {x10E3/uL} (Normal) Range: 3.4-10.8 14-Kls-303924:31 VITAMIN B-12 Comments: PATIENT WAS FASTINGPERFORMED BY: Lab[address] [id number] BY: LabVeterans Affairs Ann Arbor Healthcare System6370 [facility] [id number] (CYANOCOBALAMIN) (18537) Vitamin B12 604 pg/mL (Normal) Range: 211-946 49-Qwu-475101:31 METABOLIC PANEL, Comments: PATIENT WAS FASTINGPERFORMED BY: Relative.ai[address] [id number] BY: Relative.aiNew Bridge Medical CenterMskuyk9215 [facility] [id number] COMPREHENSIVE (99807) ALT (SGPT) 22 [iU]/L (Normal) Range: 0-32 [...] Glucose, Serum 101 mg/dL (Abnormal) Range: 65-99 00-Lei-415050:31 LIPOPROTEIN, BLD, BY NMR Comments: PATIENT WAS FASTINGPERFORMED BY: Relative.ai[address] [id number] BY: Relative.aiNew Bridge Medical CenterDscjul5051 [facility] [id number] (09637) LP-IR Score 72 (Abnormal) Comments: INSULIN RESISTANCE MARKER <--Insulin Sensitive Insulin Resistant--> Percentile in Reference PopulationInsulin Resistance ScoreLP-IR Score Low 25th 50th 75th High <27 27 45 63 >63LP-IR Score is inaccurate if patient is non-fasting. .The LP-IR score is a laboratory developed i [facility] that has beenassociated with insulin [...] 1600 - 2000 Very High > 2000 2-Erg-578288:22 HGB A1C (39120) Comments: PATIENT WAS FASTINGPERFORMED BY: Relative.ai[address] [id number] BY: Relative.aiNew Bridge Medical CenterPxzwrr6447 [facility] [id number] Hemoglobin A1c 5.8 % (Abnormal) Range: 4.8-5.6 Comments: . Pre-diabetes: 5.7 - 6.4 Diabetes: >6.4 Glycemic control for adults with diabetes: <7.0 4-Ras-136483:22 VITAMIN B-12 (CYANOCOBALAMIN) Comments: PATIENT WAS FASTINGPERFORMED BY: Relative.ai[address] [id number] BY: Relative.ai[place] 1504370 [facility] [id number] (54361) Vitamin B12 511 pg/mL (Normal) Range: 211-946 4-Kjr-194096:22 CBC W/AUTO DIFF WBC Comments: PATIENT WAS FASTINGPERFORMED BY: Relative.ai[address] [id number] BY: Relative.ai[address] [id number] (61141) Immature Grans (Abs) 0.0 {x10E3/uL} (Normal) Range: [...] 3.77-5.28 WBC 5.9 {x10E3/uL} (Normal) Range: 3.4-10.8 7-Pso-922554:22 METABOLIC PANEL, Comments: PATIENT WAS FASTINGPERFORMED BY: BN [facility] [address] [id number] BY: CB [facility] Mlmwex6178 [facility] [id number] COMPREHENSIVE (43725) ALT (SGPT) 18 [iU]/L (Normal) Range: 0-32 [...] Glucose, Serum 92 mg/dL (Normal) Range: 65-99 3-Cux-349962:22 LIPOPROTEIN, BLD, BY NMR Comments: PATIENT WAS FASTINGPERFORMED BY: BN [facility] [address] [id number] BY: CB [facility] Rquzhq3854 [facility] [id number]; non-emergent till apt (92066) LP-IR Score 73 (Abnormal) Comments: INSULIN RESISTANCE MARKER <--Insulin Sensitive Insulin Resistant--> Percentile in Reference PopulationInsulin Resistance ScoreLP-IR Score Low 25th 50th 75th High <27 27 45 63 >63LP-IR Score is inaccurate if patient is non-fasting. .The LP-IR score is a laboratory developed i [facility] that has beenassociated with insulin [...] were developed and their performance characteristicsdetermined by [employer]. These assays have not been cleared by [...] 1600 - 2000 Very High > 2000 8-Wxw-301363:22 Vitamin D Hydroxy Comments: PATIENT WAS FASTINGPERFORMED BY: LabCoLourdes Medical Center of Burlington CountyWntzgclnus2638 [facility] [id number] BY: [facility] Skvcxr9900 [facility] [id number] (07280) Vitamin D, 25-Hydroxy 59.7 ng/mL (Normal) Range: 30.0-100.0 Comments: Vitamin D deficiency has been defined by the Commerce ofMedicine and an Endocrine Society practice guideline as alevel of serum 25-OH vitamin D less than 20 ng/mL (1,2).The Endocrine Society went on to further define vitamin Dinsufficiency as a level between 21 and 29 ng/mL (2).1. IOM (Commerce of Medicine). 2010. Dietary reference intakes for calcium and D. [place]: The National Academies Press.2. Freddy MF, Pineda NC, Brody KHOURY, et al. Evaluation, treatment, and prevention of vitamin D deficiency: an Endocrine Society clinical practice guideline. JCEM. 2010; 96(7):1911-30. :37 HgA1C , Office (94745) HgA1C , Office 5.6 % (Normal) Range: 4.6 - 7.1 0-Dfv-408602:25 Lipid Panel With LDL/HDL Comments: PATIENT NOT FASTINGPERFORMED BY: LabCo Pejgbx0336 [facility] [id number] Information: [id number] Ratio LDL/HDL Ratio 2.4 {ratio_units} Range: 0.0-3.2 [...] (Normal) Comments: PATIENT NOT FASTINGPERFORMED BY: [facility] Dzwqny9554 [facility] [id number] 0:25 Comments: Written Authorization Received.Authorization received from KINDRA VARGAS [id number] by Madie Huynh 8-Cgf-080280:24 Vitamin D Hydroxy (37127) Comments: PATIENT WAS FASTINGPERFORMED BY: LFR Communications, IncCenterpointe HospitalThltey0482 [facility] [id number] Vitamin D, 25-Hydroxy 32.9 ng/mL (Normal) Range: 30.0-100.0 Comments: Vitamin D deficiency has been defined by the Commerce ofWvumedicine Barnesville Hospitalcine and an Endocrine Society practice guideline as alevel of serum 25-OH vitamin D less than 20 ng/mL (1,2).The Endocrine Society went on to further define vitamin Dinsufficiency as a level between 21 and 29 ng/mL (2).1. IOM (Commerce of Medicine). 2010. Dietary reference intakes for calcium and D. [place]: The National Academies Press.2. Freddy MF, Pineda EUBANKS, Brody KHOURY, et al. Evaluation, treatment, and prevention of vitamin D deficiency: an Endocrine Society clinical practice guideline. JCEM. 2010; 96(7):1911-30. 3-Xqn-452770:24 METABOLIC PANEL, COMPREHENSIVE Comments: PATIENT WAS FASTINGPERFORMED BY: Relative.aiNew Bridge Medical CenterInrutt3955 [facility] [id number] (88489) ALT (SGPT) 12 [iU]/L (Normal) Range: 0-32 [...] Glucose, Serum 109 mg/dL (Abnormal) Range: 65-99 1-Efp-079245:24 CBC W/AUTO DIFF WBC Comments: PATIENT WAS FASTINGPERFORMED BY: LabCoNew Bridge Medical CenterIwsknc5574 [facility] [id number] Information: [id number] (97203) Immature Grans (Abs) 0.0 {x10E3/uL} (Normal) Range: [...] Comments: 1 month; PATIENT NOT FASTINGPERFORMED BY: [facility]6370 [facility] [id number] Information: [id number] (41393) Vitamin B12 1403 pg/mL (Abnormal) Range: 211-946 :53 CBC, PLATELETS & AUT DIFF Comments: PATIENT NOT FASTINGPERFORMED BY: LabCoNew Bridge Medical CenterLdqrcy5792 [facility] [id number] Information: [id number] (29181) Immature Grans (Abs) 0.0 {x10E3/uL} (Normal) Range: [...] B-12 (CYANOCOBALAMIN) Comments: PATIENT NOT FASTINGPERFORMED BY: [employer] Lqcczd1608 [address] [place] [id number] (33953) Vitamin B12 298 pg/mL (Normal) Range: 211-946 :53 TSH (10840) Comments: PATIENT NOT FASTINGPERFORMED BY: [employer]ist [facility] Ualsvc5830 [address] ArmorDublin [place] [id number] TSH 2.590 {uIU/mL} (Normal) Range: 0.450-4.500 :53 LIPID PANEL (22578) Comments: PATIENT NOT FASTINGPERFORMED BY: [employer] Jlczqy0334 [address] ArmorDublin [place] [id number] LDL/HDL Ratio 2.5 {ratio_units} (Normal) Range: 0.0-3.2 [...] (Normal) Range: 100-199 :37 HgA1C , Office (42205) HgA1C , Office 5.8 % (Normal) Range: 4.6 - 7.1 :13 Vitamin D Hydroxy (94723) Comments: PATIENT WAS FASTINGPERFORMED BY: Twist [facility] Dfrtoh3166 [address] [employer] ArmorDublin [place] [id number] Vitamin D, 25-Hydroxy 44.2 ng/mL (Normal) Range: 30.0-100.0 Comments: Vitamin D deficiency has been defined by the Commerce ofMedicine and an Endocrine Society practice guideline as alevel of serum 25-OH vitamin D less than 20 ng/mL (1,2).The Endocrine Society went on to further define vitamin Dinsufficiency as a level between 21 and 29 ng/mL (2).1. IOM (Commerce of Medicine). 2010. Dietary reference intakes for calcium and D. [place]: The National Academies Press.2. Freddy MF, Pineda EUBANKS, Brody KHOURY, et al. Evaluation, treatment, and prevention of vitamin D deficiency: an Endocrine Society clinical practice guideline. JCEM. 2010; 96(7):1911-30. 58-Pft-595138:13 METABOLIC PANEL, Comments: PATIENT WAS FASTINGPERFORMED BY: LabCoNew Bridge Medical CenterPytzcw7184 [facility] [id number] Information: [id number] COMPREHENSIVE (65507) ALT (SGPT) 11 [iU]/L (Normal) Range: 0-32 [...] Glucose, Serum 92 mg/dL (Normal) Range: 65-99 76-Hbz-601773:13 LIPID PANEL (60003) Comments: PATIENT WAS FASTINGPERFORMED BY: Relative.aiNew Bridge Medical CenterOlybzt3024 [facility] [id number] LDL/HDL Ratio 3.6 {ratio_units} (Abnormal) Range: 0.0-3.2 [...] Cholesterol, Total 193 mg/dL (Normal) Range: 100-199 91-Dvf-37137:39 HgA1C , Office (96487) HgA1C , Office 6.2 % (Normal) Range: 4.6 - 7.1 92-Evi-833159:03 URINE TEA CULTURE-IDENTIFICATN Comments: PATIENT NOT FASTINGPERFORMED BY: LFR Communications, IncVeterans Affairs Ann Arbor Healthcare System6370 [facility] [id number] Information: [id number] (43313) Antimicrobial MIHEAD (Normal) Comments: S = Susceptible; [...] Final report Culture,Comprehensive (Abnormal) :11 Urinalysis, Office (48541) UA - LEUKOCYTE ESTERASE Small (Normal) UA - NITRITE Negative (Normal) URINE UROBILINGN KOLBY TIMED Normal mg/dL (Normal) UA - PROTEIN Negative mg/dL (Normal) UA - PH 7 (Normal) UA - BLOOD Negative (Normal) UA - SPECIFIC GRAVITY 1.015 (Normal) UA - KETONES Negative mg/dL (Normal) UA - BILIRUBIN Negative (Normal) UA - GLUCOSE Negative (Normal) 95-Bpf-706909:42 Urine Culture,Comprehensive Comments: PATIENT NOT FASTINGPERFORMED BY: i[employer] GlobalUNC Health Nash [id number] Information: [facility] [place] [id number] Antimicrobial MIHEAD (Normal) Comments: S = Susceptible; [...] Panel (14) Comments: PATIENT WAS FASTINGPERFORMED BY: [employer]6370 [facility] [id number] Information: [id number] ALT (SGPT) 12 [iU]/L (Normal) Range: 0-32 [...] % (Normal) Comments: PATIENT WAS FASTINGPERFORMED BY: [employer] [facility] [id number] Range: 4.8-5.6 Comments: . Increased risk for diabetes: 5.7 - 6.4 Diabetes: >6.4 Glycemic control for adults with diabetes: <7.0 :42 Lipid Panel With LDL/HDL Comments: PATIENT WAS FASTINGPERFORMED BY: REPP70 [facility] [id number] Ratio LDL/HDL Ratio 2.9 {ratio_units} (Normal) Range: [...] Cholesterol, Total 180 mg/dL (Normal) Range: 100-199 21-Flj-397757:22 Urine Culture,Comprehensive Comments: PATIENT NOT FASTINGPERFORMED BY: Relative.ai Ysyzjv5065 [facility] [id number] Information: [id number] Result 1 BETAGB (Abnormal) Comments: Beta hemolytic [...] Final report (Abnormal) Culture,Comprehensive :43 Urinalysis, Office (99185) UA - LEUKOCYTE ESTERASE Small (Normal) UA [...] CREATININE RATIO Comments: PATIENT WAS FASTINGPERFORMED BY: Relative.aiNew Bridge Medical CenterCgyxta2452 [facility] [id number] (04323) AND (17371) Microalb/Creat Ratio 5.2 {mg/g_creat} (Normal) Range: 0.0-30.0 Microalbumin, Urine 6.5 ug/mL (Normal) Range: 0.0-17.0 Creatinine, Urine 125.1 mg/dL (Normal) Range: 15.0-278.0 :43 Vitamin D Hydroxy (16593) Comments: PATIENT WAS FASTINGPERFORMED BY: [facility]6370 [facility] [id number] Vitamin D, 25-Hydroxy 56.5 ng/mL (Normal) Range: 30.0-100.0 Comments: Vitamin D deficiency has been defined by the Commerce ofMedicine and an Endocrine Society practice guideline as alevel of serum 25-OH vitamin D less than 20 ng/mL (1,2).The Endocrine Society went on to further define vitamin Dinsufficiency as a level between 21 and 29 ng/mL (2).1. IOM (Commerce of Medicine). 2010. Dietary reference intakes for calcium and D. [place]: The National Academies Press.2. Freddy MF, Pineda NC, Brody KHOURY, et al. Evaluation, treatment, and prevention of vitamin D deficiency: an Endocrine Society clinical practice guideline. JCEM. 2010; 96(7):1911-30. :43 CBC W/AUTO DIFF WBC Comments: PATIENT WAS FASTINGPERFORMED BY: LabCoNew Bridge Medical CenterFschxe6588 [facility] [id number] Information: [id number] (34876) Immature Grans (Abs) 0.0 {x10E3/uL} (Normal) Range: [...] PANEL, COMPREHENSIVE Comments: PATIENT WAS FASTINGPERFORMED BY: LabCoNew Bridge Medical CenterLzcxnj0697 [facility] [id number] (68722) ALT (SGPT) 15 [iU]/L (Normal) Range: 0-32 [...] mg/dL (Normal) Range: 65-99 :43 LIPID PANEL (53226) Comments: PATIENT WAS FASTINGPERFORMED BY: [facility] Dudzpl3168 [facility] [id number] LDL/HDL Ratio 1.7 {ratio_units} (Normal) Range: 0.0-3.2 [...] Cholesterol, Total 149 mg/dL (Normal) Range: 100-199 90-Sae-887858:55 Anticardiolip Ab, IgA/G/M, Comments: PATIENT NOT FASTINGPERFORMED BY: [facility] Gbkddp9852 [facility] [id number] BY: [facility] Idhcaofcov4108 [facility] [id number] BY: TG [facility] Qn ZCB6416 [facility] [id number] Anticardiolipin Ab,IgA,Qn <9 {APL_U/mL} (Normal) Range: 0-11 [...] Positive: >20 - 80 High Positive: >80 72-Unp-323034:55 Antinuclear Antibodies Comments: PATIENT NOT FASTINGPERFORMED BY: CB [facility] Gmzhuq8648 Carrizales RoadDublin [place] [id number] BY: [facility] [address] [id number] BY: TG [facility] Direct VPX6871 [facility] [id number] SURI Direct Negative (Normal) 22-Teb-531386:55 Antithrombin III, Comments: PATIENT NOT FASTINGPERFORMED BY: CB [facility] Mleeni6931 Carrizales RoadDublin [place] [id number] BY: [facility] [address] [id number] BY: TG [facility] Func/Immunol BKL3105 [facility] [id number] Antithrombin Antigen 85 % (Normal) Range: 75-130 Antithrombin Activity 100 % (Normal) Range: 75-135 C-Reactive Protein, <0.3 mg/L (Normal) Comments: PATIENT NOT FASTINGPERFORMED BY: CB [facility] Vpgrlz1082 [address]rizales RoadDublin [place] [id number] BY: [facility] [address] [id number] BY: TG [facility] 2:55 Quant QSU5600 [facility] [id number] Range: 0.0-4.9 Factor II Activity 88 % (Normal) Comments: PATIENT NOT FASTINGPERFORMED BY: CB [facility] Qmzjyv4709 Carrizales RoadDublin [place] [id number] BY: [facility] [address] [id number] BY: TG [facility] 2:55 DKO4983 [facility] [id number] Range: 75-130 19-Qzh-241992:55 Factor V Leiden Mutation Comments: PATIENT NOT FASTINGPERFORMED BY: CB [facility] Dmmoye5073 [address]rizales RoadDublin [place] [id number] BY: [facility] [place] [address] [facility] [id number] BY: [facility] MMR9595 PANCHO LindoGEISINGER COMM[facility] [id number] Factor V Leiden FVNEG3 (Normal) Comments: Result: [...] in the workup for venous thrombosis include [id number] mutation in the factor II (prothrombin) gene,protein S and C deficiency, and antithromb in deficiencies.Anticardiolipin antibody and lupus anticoagulant analysismay be appropriate for certain patients, as well ashomocysteine levels. .Contact your local [facility] for information on how to orderadditional testing if desired. .Genetic counselors are available for health care* providers to discuss results at [phone] .Methodology:DNA analysis of the Factor V gene [...] Zvereff, MD, PhDS MARQUISE Gonsales, PhD . 47-Wzc-345509:55 Protein C Deficiency Comments: PATIENT NOT FASTINGPERFORMED BY: LabCoNew Bridge Medical CenterAewxvb3868 [facility] [id number] BY: [facility] [address] [id number] BY: LabThe Wet Sealrp Profile ILK6749 [facility] [id number] Protein C-Functional 134 % (Normal) Range: 74-151 Protein C Antigen 97 % (Normal) Range: 70-140 70-Vem-617800:55 Protein Electro, Random Comments: PATIENT NOT FASTINGPERFORMED BY: [facility] Dbtuvf8722 [facility] [id number] BY: [facility] [address] [id number] BY: LabThe [employer]al Urine IIL4518 [facility] [id number] Please note: SPRCS (Normal) Comments: Protein electrophoresis scan will follow via computer, mail, orcourier delivery. M-Peter, % Not Observed % (Normal) Gamma Globulin, U 18.3 % (Normal) Beta Globulin, U 24.9 % (Normal) Mcdev-8-Znccplcw, U 17.0 % (Normal) Ugxig-4-Ejkhdeuy, U 6.3 % (Normal) Albumin, U 33.5 % (Normal) Protein,Total,Urine 5.6 mg/dL (Normal) Range: 0.0-15.0 96-Dzi-420163:55 Protein Electro.,S Comments: PATIENT NOT FASTINGPERFORMED BY: Twist [facility] Edjfsx9947 [facility] [id number] BY: [facility] [address] [id number] BY: [facility] REO0421 [facility] [id number] Please note: SPRCS (Normal) Comments: Protein electrophoresis scan will follow via computer, mail, orcourier delivery. A/G Ratio 1.5 (Normal) Range: 0.7-2.0 Globulin, Total 2.7 g/dL (Normal) Range: 2.0-4.5 M-Peter Not Observed g/dL (Normal) Gamma Globulin 1.0 g/dL (Normal) Range: 0.5-1.6 Beta Globulin 0.9 g/dL (Normal) Range: 0.6-1.3 Xtlnn-1-Thsrxdtj 0.6 g/dL (Normal) Range: 0.4-1.2 Vuoqg-9-Lxbqoyji 0.2 g/dL (Normal) Range: 0.1-0.4 Albumin 4.1 g/dL (Normal) Range: 3.2-5.6 Protein, Total, Serum 6.8 g/dL (Normal) Range: 6.0-8.5 58-Zhk-172484:55 Protein S Panel Comments: PATIENT NOT FASTINGPERFORMED BY: CB [facility] Ipiahr4149 [address] RoadDublin [place] [id number] BY: LabCo[address] [id number] BY: LabCo[address] [id number] Protein S-Functional 100 % (Normal) Range: 60-145 Protein S, Free 112 % (Normal) Range: 56-124 Protein S, Total 120 % (Normal) Range: 58-150 87-Xzt-626478:55 Rheumatoid Arthritis Comments: PATIENT NOT FASTINGPERFORMED BY: [facility] Dhtqgj3691 [address] [place] [id number] BY: LabThe Wet Seal[address] [id number] BY: [facility]CoHenry [facility] ZMT2678 [facility] [id number] RA Latex Turbid. 6.4 {IU/mL} Range: 0.0-13.9 (Normal) 90-Iiz-95313 Sedimentation 5 mm/h (Normal) Comments: PATIENT NOT FASTINGPERFORMED BY: [facility] Opwwpd5217 [address] ArmorDublin [place] [id number] BY: LabCo[address] [id number] BY: [facility] 2:55 Rate-Westergren NJF2945 [facility] [id number] Range: 0-40 9-Zut-790924:10 Vitamin D Hydroxy (78079) Comments: PATIENT NOT FASTINGPERFORMED BY: CB [facility] Lvywru0250 [address] RoadDublin [place] [id number] Vitamin D, 25-Hydroxy 56.5 ng/mL (Normal) Range: 30.0-100.0 Comments: Vitamin D deficiency has been defined by the Commerce ofMedicine and an Endocrine Society practice guideline as alevel of serum 25-OH vitamin D less than 20 ng/mL (1,2).The Endocrine Society went on to further define vitamin Dinsufficiency as a level between 21 and 29 ng/mL (2).1. IOM (Commerce of Medicine). 2010. Dietary reference intakes for calcium and D. [place]: The National Academies Press.2. Freddy MF, Pineda EUBANKS, Brody KHOURY, et al. Evaluation, treatment, and prevention of vitamin D deficiency: an Endocrine Society clinical practice guideline. JCEM. 2010; 96(7):1911-30. 3-Bav-526682:10 VITAMIN B-12 (CYANOCOBALAMIN) Comments: PATIENT NOT FASTINGPERFORMED BY: [employer]6370 [facility] [id number] (32883) Vitamin B12 455 pg/mL (Normal) Range: 211-946 5-Qoq-429631:10 TSH (51106) Comments: PATIENT NOT FASTINGPERFORMED BY: [employer] Can Industriesrp Clbuvj4687 Cook123[facility] [id number] TSH 1.870 {uIU/mL} (Normal) Range: 0.450-4.500 9-Kiq-618214:10 EBV Panel (43913) Comments: PATIENT NOT FASTINGPERFORMED BY: Tin Can Industriesrp Rnjvoa0769 [facility] [id number] Information: [id number] Interpretation: SPRCS (Normal) Comments: EBV Interpretation Chart [...] 43.9 Positive >43.9 :47 HgA1C , Office (24970) HgA1C , Office 5.8 % (Normal) Range: 4.6 - 7.1 02-Dzs-732973:38 Microscopic Examination Comments: PATIENT WAS FASTINGPERFORMED BY: iPrism GlobalUNC Health Nash [id number] Bacteria Few (Normal) Mucus Threads Present (Normal) Epithelial Cells (non renal) 0-10 {/hpf} (Normal) Range: 0 - 10 RBC None seen {/hpf} (Normal) Range: 0 - 2 WBC 0-5 {/hpf} (Normal) Range: 0 - 5 50-Ffr-989051:38 MICROALBUMIN: CREATININE RATIO Comments: PATIENT WAS FASTINGPERFORMED BY: [facility]St[facility] [id number] (90670) AND (30786) Creatinine, Urine 59.0 mg/dL (Normal) Range: 15.0-278.0 Microalb/Creat Ratio 8.3 {mg/g_creat} (Normal) Range: 0.0-30.0 Microalbumin, Urine 4.9 ug/mL (Normal) Range: 0.0-17.0 31-Sbk-738851:38 URINALYSIS, W/ MICRO (61697) Comments: PATIENT WAS FASTINGPERFORMED BY: PaperVSt. Luke[facility] [id number] Microscopic Examination MICRON (Normal) Comments: Microscopic follows if indicated. Microscopic Examination See below: (Normal) Comments: Microscopic was indicated and was performed. Nitrite, Urine Negative (Normal) Urobilinogen,Semi-Qn 0.2 mg/dL (Normal) Range: 0.0-1.9 Bilirubin Negative (Normal) Occult Blood Negative (Normal) Ketones Negative (Normal) Glucose Negative (Normal) Protein Negative (Normal) Appearance Clear (Normal) WBC Esterase Negative (Normal) pH 7.5 (Normal) Range: 5.0-7.5 Urine-Color Yellow (Normal) Specific Ulm 1.016 (Normal) Range: 1.005-1.030 65-Mif-391709:38 CBC WITH MANUAL DIFF Comments: PATIENT WAS FASTINGPERFORMED BY: LabVeter[facility] System6370 [facility] [id number] Information: [id number] (89828) Immature Grans (Abs) 0.0 {x10E3/uL} (Normal) Range: [...] {x10E3/uL} (Normal) Range: 3.4-10.8 :38 LIPID PANEL (85816) Comments: PATIENT WAS FASTINGPERFORMED BY: REPP70 [facility] [id number] LDL/HDL Ratio 1.9 {ratio_units} (Normal) Range: 0.0-3.2 [...] PANEL, COMPREHENSIVE Comments: PATIENT WAS FASTINGPERFORMED BY: [employer]6370 [facility] [id number] (81645) ALT (SGPT) 12 [iU]/L (Normal) Range: 0-32 [...] Glucose, Serum 98 mg/dL (Normal) Range: 65-99 08-Owo-923614:43 URINE TEA CULTURE (KOLBY Comments: PATIENT NOT FASTINGPERFORMED BY: LabCoNew Bridge Medical CenterDgclho7412 [facility] [id number] Information: SRC:VALENTINA [id number] COL COUNT) (99210) Result 1 BETAGB (Abnormal) Comments: Beta hemolytic [...] (CLSI 2011) Urine Final report (Abnormal) Culture,Comprehensive 2-Ldq-643917:47 Urinalysis, Office (23532) UA - LEUKOCYTE ESTERASE Small (Normal) UA - NITRITE Negative (Normal) URINE UROBILINGN KOLBY TIMED Normal mg/dL (Normal) UA - PROTEIN 30 mg/dL (Normal) UA - PH 5 (Abnormal) UA - BLOOD Negative (Normal) UA - SPECIFIC GRAVITY 1.025 (Normal) UA - KETONES Negative mg/dL (Normal) UA - BILIRUBIN Small (Normal) UA - GLUCOSE Negative (Normal) 1-Kob-277270:43 HgA1C , Office (73893) HgA1C , Office 5.9 % (Normal) Range: 4.6 - 7.1 5-Etl-633389:43 Blood Glucose , Office (24002) Blood Glucose , Office 137 (Normal) 3-Yyt-150359:00 URINE TEA CULTURE-IDENTIFICATN Comments: PATIENT NOT FASTINGPERFORMED BY: [facility] [id number] Information: [id number] (64639) Result 1 BETAGB (Abnormal) Comments: Beta hemolytic [...] (CLSI 2011) Urine Final report (Abnormal) Culture,Comprehensive 4-Iqk-906327:04 Urinalysis, Office (49035) UA - LEUKOCYTE ESTERASE Small (Normal) UA - NITRITE Negative (Normal) URINE UROBILINGN KOLBY TIMED Normal mg/dL (Normal) UA - PROTEIN Negative mg/dL (Normal) UA - PH 6.5 (Normal) UA - BLOOD non-hemolyzed trace (Normal) UA - SPECIFIC GRAVITY 1.015 (Normal) UA - KETONES Negative mg/dL (Normal) UA - BILIRUBIN Negative (Normal) UA - GLUCOSE Negative (Normal) 26-Tpn-701925:47 LIPID PANEL (25048) Comments: PATIENT WAS FASTINGPERFORMED BY: LFR Communications, IncVeterans Affairs Ann Arbor Healthcare System6370 [facility] [id number] LDL/HDL Ratio 2.0 {ratio_units} (Normal) Range: 0.0-3.2 LDL Cholesterol Calc 88 mg/dL (Normal) Range: 0-99 VLDL Cholesterol Alexander 19 mg/dL (Normal) Range: 5-40 HDL Cholesterol 45 mg/dL (Normal) Comments: According to ATP-III Guidelines, HDL-C >59 mg/dL is considered anegative risk factor for CHD. Cholesterol, Total 152 mg/dL (Normal) Range: 100-199 Triglycerides 95 mg/dL (Normal) Range: 0-149 20-Bzg-404272:47 CBC WITH MANUAL DIFF Comments: PATIENT WAS FASTINGPERFORMED BY: [place] 3746070 [facility] [id number] Information: [id number],2ND ORDER NO DRAW F EE (96938) Immature Grans (Abs) 0.0 {x10E3/uL} (Normal) Range: [...] 3.77-5.28 WBC 5.8 {x10E3/uL} (Normal) Range: 3.4-10.8 70-Oct-901454:47 METABOLIC PANEL, COMPREHENSIVE Comments: PATIENT WAS FASTINGPERFORMED BY: LabCoNew Bridge Medical CenterCqpmdo7843 [facility] [id number] (23260) ALT (SGPT) 16 [iU]/L (Normal) Range: 0-32 [...] Glucose, Serum 94 mg/dL (Normal) Range: 65-99 35-Xld-704552:13 URINE TEA CULTURE (KOLBY Comments: PATIENT NOT FASTINGPERFORMED BY: [facility] Nfhnta9026 [facility] [id number] Information: SRC:UR [id number] COL COUNT) (57336) Result 1 BETAGB (Abnormal) Comments: Beta hemolytic [...] (CLSI 2011) Urine Final report (Abnormal) Culture,Comprehensive 63-Doq-120504:11 Urinalysis, Office (01735) UA - LEUKOCYTE ESTERASE Small (Normal) UA - NITRITE Negative (Normal) URINE UROBILINGN KOLBY TIMED Normal mg/dL (Normal) UA - PROTEIN Negative mg/dL (Normal) UA - PH 7 (Normal) UA - BLOOD Non Hemolyzed Moderate (Normal) UA - SPECIFIC GRAVITY 1.015 (Normal) UA - KETONES Negative mg/dL (Normal) UA - BILIRUBIN Negative (Normal) UA - GLUCOSE Negative (Normal) 66-Ybd-259737:47 Phosphorus (82551) Comments: 2 weeks; PATIENT NOT FASTINGPERFORMED BY: REPP70 [employer] ArmorSt. Luke's Hospital [id number] Information: [id number] Phosphorus, Serum 3.7 mg/dL (Normal) Range: 2.5-4.5 55-Iow-878609:36 URINE TEA CULTURE-IDENTIFICATN Comments: PATIENT NOT FASTINGPERFORMED BY: REPP70 Cook123[facility] [id number] Information: SRC: URINE (44662) Result 1 BETAGB (Normal) Comments: Beta hemolytic [...] (CLSI 2011) Urine Final report (Normal) Culture,Comprehensive 06-Qnq-177979:02 Urinalysis, Office (69193) UA - LEUKOCYTE ESTERASE Trace (Normal) UA - NITRITE Negative (Normal) URINE UROBILINGN KOLBY TIMED Normal mg/dL (Normal) UA - PROTEIN Negative mg/dL (Normal) UA - PH 7 (Normal) UA - BLOOD Negative (Normal) UA - SPECIFIC GRAVITY 1.010 (Normal) UA - KETONES Negative mg/dL (Normal) UA - BILIRUBIN Negative (Normal) UA - GLUCOSE Negative (Normal) 86-Usl-052706:16 Microscopic Examination Comments: PATIENT NOT FASTINGPERFORMED BY: Tin Can Industriesrp Fjmyup1610 [facility] [id number] Bacteria Few (Normal) Mucus Threads Present (Normal) Epithelial Cells (non renal) 0-10 {/hpf} (Normal) Range: 0 - 10 RBC 0-3 {/hpf} (Normal) Range: 0 - 3 WBC 6-10 {/hpf} (Abnormal) Range: 0 - 5 :45 Protein Electro, Random Urine Comments: PERFORMED BY: iPrism GlobalUNC Health [facility] [id number] M-Peter, % Not Observed % (Normal) Please note: SPRCS (Normal) Comments: Protein electrophoresis scan will follow via computer, mail, orcourier delivery. Beta Globulin, U 27.1 % (Normal) Gamma Globulin, U 31.6 % (Normal) Xwqyj-7-Rhdsrkhg, U 4.3 % (Normal) Loysj-4-Lhsphgke, U 15.2 % (Normal) Albumin, U 21.8 % (Normal) Protein,Total,Urine 5.5 mg/dL (Normal) Range: 0.0-15.0 :45 Protein Electro.,S Comments: PERFORMED BY: iPrism GlobalUNC Health Nash [id number] Please note: SPRCS (Normal) Comments: Protein electrophoresis scan will follow via computer, mail, orcourier delivery. A/G Ratio 1.6 (Normal) Range: 0.7-2.0 Globulin, Total 2.5 g/dL (Normal) Range: 2.0-4.5 Beta Globulin 0.8 g/dL (Normal) Range: 0.6-1.3 Gamma Globulin 0.9 g/dL (Normal) Range: 0.5-1.6 M-Peter Not Observed g/dL (Normal) Jypwf-7-Stllcpam 0.6 g/dL (Normal) Range: 0.4-1.2 Xkunm-2-Ymrgqavi 0.2 g/dL (Normal) Range: 0.1-0.4 Albumin 4.1 g/dL (Normal) Range: 3.2-5.6 Protein, Total, Serum 6.6 g/dL (Normal) Range: 6.0-8.5 02-Jou-825117:25 URINALYSIS, W/ MICRO Comments: PATIENT NOT FASTINGPERFORMED BY: PaperVDublin [place] [id number] Information: [id number] (33004) Microscopic Examination See below: (Normal) Nitrite, Urine Negative (Normal) Bilirubin Negative (Normal) Urobilinogen,Semi-Qn 0.2 mg/dL (Normal) Range: 0.0-1.9 Occult Blood Negative (Normal) Ketones Negative (Normal) Glucose Negative (Normal) Protein Negative (Normal) WBC Esterase Trace (Abnormal) Appearance Clear (Normal) Urine-Color Yellow (Normal) pH 6.5 (Normal) Range: 5.0-7.5 Specific Ulm 1.019 (Normal) Range: 1.005-1.030 22-Bbq-777701:25 URINE TEA CULTURE (KOLBY COL Comments: PATIENT NOT FASTINGPERFORMED BY: [facility]6370 [facility] [id number] COUNT) (35076) Result 1 BETAGB (Normal) Comments: Beta hemolytic [...] (CLSI 2011) Urine Final report (Normal) Culture,Comprehensive 2-Sws-164724:13 URINE CALCIUM KOLBY TIMED Comments: PATIENT NOT FASTINGPERFORMED BY: [facility] [id number] Information: [id number], START TIME: 10-27-13 AT 9 AMEND TIME 10/28/13 AT 7 AM 24 Hour (11787) Calcium, Urine 24hr 199.5 {mg/24_hr} (Normal) Range: 100.0-300.0 Calcium, Urine 21.0 mg/dL (Normal) 39-Eah-388123:15 PARATHORMONE (14343) Comments: PERFORMED BY: LFR Communications, IncLake Regional Health System [place]1675 [facility] [id number] PTH, Intact 20 pg/mL (Normal) Range: 15-65 12-Esh-394796:15 PHOSPHORUS (33789) Comments: PERFORMED BY: LFR Communications, IncVeterans Affairs [facility] System6370 [facility] [id number] Phosphorus, Serum 4.6 mg/dL (Abnormal) Range: 2.5-4.5 20-Ojp-959299:15 TSH (07959) Comments: PERFORMED BY: LFR Communications, IncVeterans Affairs Ann [facility] Healthcare System6370 [facility] [id number] TSH 2.710 {uIU/mL} (Normal) Range: 0.450-4.500 52-Lgp-611910:57 FECAL OCCULT- Tubes sent home (63549) FECAL OCCULT HGB ASSAY, QUAL, 1-3 SIMULTANEOU negative (Normal) 44-Fpx-062333:50 HgA1C , Office (52131) HgA1C , Office 6.1 % (Normal) Range: 4.6 - 7.1 :26 LIPID PANEL (39685) Comments: PATIENT WAS FASTINGPERFORMED BY: Relative.aiNew Bridge Medical CenterLwrdwj2919 [facility] [id number] LDL/HDL Ratio 2.1 {ratio_units} (Normal) Range: 0.0-3.2 [...] CREATININE RATIO Comments: PATIENT WAS FASTINGPERFORMED BY: LFR Communications, IncVeterans Affairs Ann [facility] System6370 [facility] [id number] (09121) AND (71491) Microalb/Creat Ratio 13.1 {mg/g_creat} (Normal) Range: 0.0-30.0 Creatinine, Urine 70.1 mg/dL (Normal) Range: 15.0-278.0 Microalbumin, Urine 9.2 ug/mL (Normal) Range: 0.0-17.0 :26 METABOLIC PANEL, Comments: PATIENT WAS FASTINGPERFORMED BY: Relative.ai Iqooyc8788 [facility] [id number] Information: [id number] [facility] (37375) ALT (SGPT) 17 [iU]/L (Normal) Range: 0-32 [...] (Abnormal) Range: 65-99 :26 Vitamin D Hydroxy (03101) Comments: PATIENT WAS FASTINGPERFORMED BY: Relative.aiNew Bridge Medical CenterQehhdk0636 [facility] [id number] Vitamin D, 25-Hydroxy 57.3 ng/mL (Normal) Range: 30.0-100.0 Comments: Vitamin D deficiency has been defined by the Commerce ofMedicine and an Endocrine Society practice guideline as alevel of serum 25-OH vitamin D less than 20 ng/mL (1,2).The Endocrine Society went on to further define vitamin Dinsufficiency as a level between 21 and 29 ng/mL (2).1. IOM (Commerce of Medicine). 2010. Dietary reference intakes for calcium and D. [place]: The National Academies Press.2. Freddy MF, Pineda EUBANKS, Brody KHOURY, et al. Evaluation, treatment, and prevention of vitamin D deficiency: an Endocrine Society clinical practice guideline. JCEM. 2010; 96(7):1911-30. 3-Gag-601627:42 HgA1C , Office (53171) HgA1C , Office 5.6 % (Normal) Range: 4.6 - 7.1 :17 METABOLIC PANEL, Comments: PATIENT WAS FASTINGPERFORMED BY: LabCoNew Bridge Medical CenterHxcuzh1805 [facility] [id number] Information: [id number] COMPREHENSIVE (25559) ALT (SGPT) 25 [iU]/L (Normal) Range: 0-32 [...] Glucose, Serum 94 mg/dL (Normal) Range: 65-99 62-Bnx-773658:17 LIPID PANEL (27860) Comments: PATIENT WAS FASTINGPERFORMED BY: LabCo Hvmryh5302 [facility] [id number] LDL/HDL Ratio 1.9 {ratio_units} (Normal) Range: 0.0-3.2 LDL Cholesterol Calc 77 mg/dL (Normal) Range: 0-99 VLDL Cholesterol Alexander 24 mg/dL (Normal) Range: 5-40 HDL Cholesterol 40 mg/dL (Normal) Comments: According to ATP-III Guidelines, HDL-C >59 mg/dL is considered anegative risk factor for CHD. Triglycerides 119 mg/dL (Normal) Range: 0-149 Cholesterol, Total 141 mg/dL (Normal) Range: 100-199 38-Yat-259985:35 BILAT SCRN DIGITAL & CAD Radiology Report [...] Bajwa M.D.May 20, 2013 at 7:25:00 AM [phone] Signed RU/RU If you are the referring physician and would like to consult with suzette maurer who provided this interpretation, please contact Julisa George at [phone]. If this radiologist is unavailable, youwillbe directed to another radiologist to assist. If you are a patien t with a question regarding this report, pleasecontactyour referring physician directly. Professional Interpretation Provided By: [employer], Phone , These documents conta in legally [...] Bajwa on 05/20/13726 Sign by: Alvaro Bajwa 8-Bho-875901:29 VITAMIN B-12 (CYANOCOBALAMIN) Comments: PATIENT NOT FASTINGPERFORMED BY: LabCoNew Bridge Medical CenterQesebh3054 [facility] [id number] (12875) Vitamin B12 395 pg/mL (Normal) Range: 211-946 0-Dzn-905743:29 TSH (54100) Comments: PATIENT NOT FASTINGPERFORMED BY: [facility] Yiccjt4248 [facility] [id number] TSH 2.020 {uIU/mL} (Normal) Range: 0.450-4.500 6-Oak-058012:29 CBC WITH MANUAL DIFF Comments: PATIENT NOT FASTINGPERFORMED BY: [facility] Jbcxan7673 [facility] [id number] Information: [id number] (59845) Immature Grans (Abs) 0.0 {x10E3/uL} (Normal) Range: [...] 3.77-5.28 WBC 7.6 {x10E3/uL} (Normal) Range: 4.0-10.5 9-Wnm-757829:29 EBV Panel (70209) Comments: PATIENT NOT FASTINGPERFORMED BY: LabVeterans Affairs [facility] System6370 [facility] [id number] Interpretation: SPRCS (Normal) Comments: EBV Interpretation Chart [...] <0.9 Equivocal 0.9 - 1.0 Positive >1.0 3-Mew-578706:39 HgA1C , Office (51340) HgA1C , Office 6.2 % (Normal) Range: 4.6 - 7.1 00-Vhw-582542:36 Vitamin D Hydroxy (56358) Comments: PATIENT WAS FASTINGPERFORMED BY: LabVeter[facility] Affairs [facility] System6370 [facility] [id number] Vitamin D, 25-Hydroxy 64.3 ng/mL (Normal) Range: 30.0-100.0 Comments: Vitamin D deficiency has been defined by the Commerce ofMedicine and an Endocrine Society practice guideline as alevel of serum 25-OH vitamin D less than 20 ng/mL (1,2).The Endocrine Society went on to further define vitamin Dinsufficiency as a level between 21 and 29 ng/mL (2).1. IOM (Commerce of Medicine). 2010. Dietary reference intakes for calcium and D. [place]: The National Academies Press.2. Freddy MF, Pineda [place], Brody KHOURY, et al. Evaluation, treatment, and prevention of vitamin D deficiency: an Endocrine Society clinical practice guideline. JCEM. 2010; 96(7):1911-30. :36 METABOLIC PANEL, COMPREHENSIVE Comments: PATIENT WAS FASTINGPERFORMED BY: iPrism GlobalUNC Health Nash [id number] (79222) ALT (SGPT) 16 [iU]/L (Normal) Range: 0-32 [...] mg/dL (Normal) Range: 65-99 :36 LIPID PANEL (23255) Comments: PATIENT WAS FASTINGPERFORMED BY: S[employer] Foundationin [place] [id number] LDL/HDL Ratio 2.3 {ratio_units} (Normal) Range: 0.0-3.2 LDL Cholesterol Calc 86 mg/dL (Normal) Range: 0-99 VLDL Cholesterol Alexander 28 mg/dL (Normal) Range: 5-40 HDL Cholesterol 38 mg/dL (Abnormal) Comments: According to ATP-III Guidelines, HDL-C >59 mg/dL is considered anegative risk factor for CHD. Triglycerides 140 mg/dL (Normal) Range: 0-149 Cholesterol, Total 152 mg/dL (Normal) Range: 100-199 4-Tkd-639753:14 URINE TEA CULTURE-IDENTIFICATN Comments: PATIENT NOT FASTINGPERFORMED BY: [place] 3746070 [facility] [id number] Information: [id number] (82924) Result 1 MUG (Normal) Comments: Mixed urogenital flora8,000 Colonies/mL Urine Culture,Comprehensive Final report (Normal) 02-Oct-20129:47 Urinalysis, Office (44311) UA - BILIRUBIN Negative (Normal) UA - BLOOD Negative (Normal) UA - GLUCOSE Negative (Normal) UA - KETONES Negative mg/dL (Normal) UA - LEUKOCYTE ESTERASE Small (Normal) UA - NITRITE Negative (Normal) UA - PH 7.0 (Normal) UA - PROTEIN Trace mg/dL (Normal) UA - SPECIFIC GRAVITY 1.020 (Normal) URINE UROBILINGN KOLBY TIMED Normal mg/dL (Normal) Comments: 1.0 E.U./dL 96-Esk-428074:49 URINE TEA CULTURE-IDENTIFICATN Comments: PATIENT NOT FASTINGPERFORMED BY: [facility]6370 [facility] [id number] Information: [id number] (39104) Result 2 ECV (Normal) Comments: Escherichia coli, [...] 1,000 Colonies/mL (Normal) Urine Final report (Normal) [facility] 52-Epo-067880:47 Urinalysis, Office (33801) UA - BILIRUBIN Negative (Normal) UA - BLOOD Hemolyzed Moderate (Normal) UA - GLUCOSE Negative (Normal) UA - KETONES Negative mg/dL (Normal) UA - LEUKOCYTE ESTERASE Small (Normal) UA - NITRITE Negative (Normal) UA - PH 7.0 (Normal) UA - PROTEIN Negative mg/dL (Normal) UA - SPECIFIC GRAVITY 1.015 (Normal) URINE UROBILINGN KOLBY TIMED Normal mg/dL (Normal) 89-Qix-368115:07 URINE TEA CULTURE-IDENTIFICATN Comments: PATIENT NOT FASTINGPERFORMED BY: [facility] Ikohha6445 [facility] [id number] Information: [id number] (19639) Result 2 ECV (Normal) Comments: Escherichia coli, [...] 900 Colonies/mLSTRAIN#1 (Normal) Urine Final report (Normal) [facility] 83-Kcw-244849:56 Urinalysis, Office (33289) UA - BILIRUBIN Small (Normal) UA - [...] CREATININE RATIO Comments: PATIENT WAS FASTINGPERFORMED BY: REPP70 Cook123[facility] [id number] (23425) AND (39103) Microalb/Creat Ratio 5.9 {mg/g_creat} (Normal) Range: 0.0-30.0 Microalbumin, Urine 5.6 ug/mL (Normal) Range: 0.0-17.0 Creatinine, Urine 95.1 mg/dL (Normal) Range: 15.0-278.0 :34 CBC WITH MANUAL DIFF Comments: PATIENT WAS FASTINGPERFORMED BY: [employer]6370 Cook123[facility] [id number] Information: [id number] (83548) Immature Grans (Abs) 0.0 {x10E3/uL} (Normal) Range: [...] (Normal) Range: 4.0-10.5 :34 Vitamin D Hydroxy (87519) Comments: PATIENT WAS FASTINGPERFORMED BY: [employer]70 [facility] [id number] Vitamin D, 25-Hydroxy 70.7 ng/mL (Normal) Range: 30.0-100.0 Comments: Vitamin D deficiency has been defined by the Commerce ofMedicine and an Endocrine Society practice guideline as alevel of serum 25-OH vitamin D less than 20 ng/mL (1,2).The Endocrine Society went on to further define vitamin Dinsufficiency as a level between 21 and 29 ng/mL (2).1. IOM (Commerce of Medicine). 2010. Dietary reference intakes for calcium and D. [place]: The National Academies Press.2. Freddy MF, Pineda [place], Brody KHOURY, et al. Evaluation, treatment, and prevention of vitamin D deficiency: an Endocrine Society clinical practice guideline. JCEM. 2010; 96(7):1911-30. :34 LIPID PANEL (62642) Comments: PATIENT WAS FASTINGPERFORMED BY: LabCoHoly Cross HospitalVtcbts6068 [facility] [id number] LDL/HDL Ratio 1.5 {ratio_units} (Normal) Range: 0.0-3.2 [...] PANEL, COMPREHENSIVE Comments: PATIENT WAS FASTINGPERFORMED BY: REPP70 Cook123[facility] [id number] (29617) ALT (SGPT) 19 [iU]/L (Normal) Range: 0-32 [...] Glucose, Serum 95 mg/dL (Normal) Range: 65-99 10-Sgf-967573:25 URINE TEA CULTURE-KOLBY COL Comments: PATIENT NOT FASTINGPERFORMED BY: [employer] Kkdhdc5643 Cook123[facility] [id number] Information: SRC:UR [id number] COUNT (72349) Result 1 ECV (Normal) Comments: Escherichia coli, identified by an automated biochemical system.600 Colonies/mL S = Susceptible; I = Intermediate; R = Resistant P = Positive; N = Negative ND CS are expressed in micrograms per mL Antibiotic RSLT#1 RSLT#2 RSLT#3 RSLT#4Amoxicillin/Clavulanic Acid IAmpicillin RCefazolin SCef epime SCeftriaxone SCefuroxime SCephalothin RCiprofloxacin SESBL NErtapenem SGentamicin RImipenem SLevofloxacin SNitrofurantoin SPiperacillin RTetracycline RTobramycin ITrimethoprim/Sulfa R Urine Final report (Normal) Culture,Comprehensiv e 94-Ehc-22695:42 Urinalysis, Office (62260) UA - BILIRUBIN Negative (Normal) UA - BLOOD Negative (Normal) UA - GLUCOSE Negative (Normal) UA - KETONES Negative mg/dL (Normal) UA - LEUKOCYTE ESTERASE Trace (Normal) UA - NITRITE Negative (Normal) UA - PH 7.0 (Normal) UA - PROTEIN Negative mg/dL (Normal) UA - SPECIFIC GRAVITY 1.010 (Normal) URINE UROBILINGN KOLBY TIMED Normal mg/dL (Normal) 0-Kak-569341:52 Hemoglobin Glyclated (HGB A1C) Comments: PATIENT NOT FASTINGPERFORMED BY: [employer]6370 [facility] [id number] (92026) Hemoglobin A1c 5.6 % (Normal) Range: 4.8-5.6 Comments: . Increased risk for diabetes: 5.7 - 6.4 Diabetes: >6.4 Glycemic control for adults with diabetes: <7.0 4-Sax-441726:52 EBV Panel (43403) Comments: PATIENT NOT FASTINGPERFORMED BY: GurujiCoAnchor™Wftbhq2293 [facility] [id number] Interpretation: SPRCS (Normal) Comments: EBV Interpretation Chart [...] <0.9 Equivocal 0.9 - 1.0 Positive >1.0 4-Bmh-467487:52 CBC WITH MANUAL DIFF Comments: PATIENT NOT FASTINGPERFORMED BY: LabCo Fgcuwr4956 [facility] [id number] Information: [id number] (77825) Immature Grans (Abs) 0.0 {x10E3/uL} (Normal) Range: [...] 3.77-5.28 WBC 6.4 {x10E3/uL} (Normal) Range: 4.0-10.5 3-Kgb-583789:52 VITAMIN B-12 (CYANOCOBALAMIN) Comments: PATIENT NOT FASTINGPERFORMED BY: Relative.ai Kotacv1198 [facility] [id number] (26718) Vitamin B12 373 pg/mL (Normal) Range: 211-946 2-Kjv-941906:22 URINE TEA CULTURE-KOLBY COL Comments: PATIENT NOT FASTINGPERFORMED BY: Relative.ai [employer] [facility] [id number] Information: SRC: URINE COUNT (60794) Result 1 ECV (Normal) Comments: Escherichia coli, [...] R Urine Final report (Normal) Culture,Comprehensiv e 5-Jdi-247817:11 Urinalysis, Office (91910) UA - BILIRUBIN Negative (Normal) UA - BLOOD Negative (Normal) UA - GLUCOSE Negative (Normal) UA - KETONES Negative mg/dL (Normal) UA - LEUKOCYTE ESTERASE Small (Normal) UA - NITRITE Negative (Normal) UA - PH 7.0 (Normal) UA - PROTEIN Negative mg/dL (Normal) UA - SPECIFIC GRAVITY 1.015 (Normal) URINE UROBILINGN KOLBY TIMED Normal mg/dL (Normal) 31-Cvj-713275:01 BILAT JOSE DIGITAL & CAD Radiology Report [...] EDTElectronically Signed MV/MV Professional Interpretation Provided By: [facility], , To consult with a radiologist regarding this report, please call our [id number] line @ Dictated on 03/08/12 1212 by Abdiel PETERS MDcribed on 03/08/12 1535 by ITS IMPORTSign by MARCELINO PETERS MD on 03/08/12 1536 Sign by: __ MARCELINO PETERS MD 28-May-20129:39 METABOLIC PANEL, Comments: PATIENT WAS FASTINGPERFORMED BY: LabCoNew Bridge Medical CenterKyelrq1670 [facility] [id number] Information: [id number] COMPREHENSIVE (30101) ALT (SGPT) 18 [iU]/L (Normal) Range: 0-40 [...] mg/dL (Abnormal) Range: 65-99 28-May-20129:39 LIPID PANEL (25454) Comments: PATIENT WAS FASTINGPERFORMED BY: [facility]CoNew [facility] CenterKlkzzk3841 [facility] [id number] LDL/HDL Ratio 2.2 {ratio_units} (Normal) Range: 0.0-3.2 [...] 100 - 199 :39 Vitamin D Hydroxy (74708) Comments: PATIENT WAS FASTINGPERFORMED BY: [facility] Uuzpdg5242 [address] RoadDublin [place] [id number] Vitamin D, 25-Hydroxy 63.5 ng/mL (Normal) Range: 30.0-100.0 Comments: Vitamin D deficiency has been defined by the Commerce ofW[facility] Hospital[facility] and an Endocrine Society practice guideline as alevel of serum 25-OH vitamin D less than 20 ng/mL (1,2).The Endocrine Society went on to further define vitamin Dinsufficiency as a level between 21 and 29 ng/mL (2).1. IOM (Commerce of Medicine). 2010. Dietary reference intakes for calcium and D. [place]: The National Academies Press.2. Freddy MF, Pineda EUBANKS, Brody KHOURY, et al. Evaluation, treatment, and prevention of vitamin D deficiency: an Endocrine Society clinical practice guideline. JCEM. 2010; 96(7):1911-30. :39 PHOSPHORUS (48495) Comments: PATIENT WAS FASTINGPERFORMED BY: [facility] Doixlf4152 [address]riz[address] RoadDublin [place] [id number] Phosphorus, Serum 4.1 mg/dL (Normal) Range: 2.5-4.5 :39 PARATHORMONE (63104) Comments: PATIENT WAS FASTINGPERFORMED BY: [facility] Tftjlj360[address]Dublin [place] [id number] PTH, Intact 32 pg/mL (Normal) Range: 15-65 :39 TSH (60004) Comments: PATIENT WAS FASTINGPERFORMED BY: [facility] [id number] TSH 3.330 {uIU/mL} (Normal) Range: 0.450-4.500 64-Xdh-313546:01 DEXA BONE DENSITY STUDY () Radiology Report [...] radiologist regarding this report, please call our [id number] line @ Dictated on 10/12/11 1004 by Ni BERG,Oscar rodriguezribed on 10/12/11 1101 by ITS IMPORTSign by Ni BERG,Arjun on 10/12/11 1102 Sign by: Ni BERG,Arjun 88-Xwr-589200:12 METABOLIC PANEL, Comments: PATIENT WAS FASTINGPERFORMED BY: [facility]6370 [facility] [id number] Information: [id number] COMPREHENSIVE (03281) ALT (SGPT) 15 [iU]/L (Normal) Range: 0-40 [...] Glucose, Serum 92 mg/dL (Normal) Range: 65-99 55-Ohi-105133:12 Vitamin D Hydroxy (69193) Comments: PATIENT WAS FASTINGPERFORMED BY: [employer]6370 [facility] [id number] Vitamin D, 25-Hydroxy 70.5 ng/mL (Normal) Range: 30.0-100.0 Comments: Vitamin D deficiency has been defined by the Commerce ofMedicine and an Endocrine Society practice guideline as alevel of serum 25-OH vitamin D less than 20 ng/mL (1,2).The Endocrine Society went on to further define vitamin Dinsufficiency as a level between 21 and 29 ng/mL (2).1. IOM (Commerce of Medicine). 2010. Dietary reference intakes for calcium and D. [place]: The National Academies Press.2. Freddy MF, Pineda [place], Brody KHOURY, et al. Evaluation, treatment, and prevention of vitamin D deficiency: an Endocrine Society clinical practice guideline. JCEM. 2010; 96(7):1911-30. 02-Azm-186815:12 LIPID PANEL (80825) Comments: PATIENT WAS FASTINGPERFORMED BY: [employer] Iofyec2507 [facility] [id number] LDL/HDL Ratio 2.1 {ratio_units} (Normal) Range: 0.0-3.2 LDL Cholesterol Calc 103 mg/dL (Abnormal) Range: 0-99 VLDL Cholesterol Alexander 19 mg/dL (Normal) Range: 5-40 HDL Cholesterol 50 mg/dL (Normal) Comments: According to ATP-III Guidelines, HDL-C >59 mg/dL is considered anegative risk factor for CHD. Triglycerides 97 mg/dL (Normal) Range: 0-149 Cholesterol, Total 172 mg/dL (Normal) Range: 100-199 97-Mvl-029428:56 UNILAT LT DIAG DIGITAL & CAD Radiology [...] 02/17/11 1134 Sign by: Arjun Weathers MD 86-Ala-35597:59 BILAT SCRN DIGITAL & CAD Radiology Report [...] 02/16/11 1026 Sign by: Arjun Weathers MD 79-Jff-647963:01 METABOLIC PANEL, Comments: PATIENT WAS FASTINGPERFORMED BY: LabCoNew Bridge Medical CenterYrtcib2073 [facility] [id number] Information: [id number] COMPREHENSIVE (99838) ALT (SGPT) 20 [iU]/L (Normal) Range: 0-40 [...] Glucose, Serum 99 mg/dL (Normal) Range: 65-99 87-Aur-994490:01 LIPID PANEL (53323) Comments: PATIENT WAS FASTINGPERFORMED BY: iPr[employer] GlobalUNC Health Nash [id number] LDL/HDL Ratio 2.1 {ratio_units} (Normal) Range: 0.0-3.2 LDL Cholesterol Calc 91 mg/dL (Normal) Range: 0-99 VLDL Cholesterol Alexander 23 mg/dL (Normal) Range: 5-40 HDL Cholesterol 44 mg/dL (Normal) Comments: According to ATP-III Guidelines, HDL-C >59 mg/dL is considered anegative risk factor for CHD. Triglycerides 114 mg/dL (Normal) Range: 0-149 Cholesterol, Total 158 mg/dL (Normal) Range: 100-199 48-Ugu-264073:01 Vitamin D Hydroxy (83489) Comments: PATIENT WAS FASTINGPERFORMED BY: [employer] [facility] [id number] Vitamin D, 25-Hydroxy 39.2 ng/mL (Normal) Range: 32.0-100.0 Comments: Recent studies consider the lower limit of 32.0 ng/mL to be athreshold for optimal health.Harman GALVAN. J Nutr. 2004;135(2):317-22. 09-Tma-274047:59 URINE TEA CULTURE-KOLBY COL Comments: PATIENT NOT FASTINGPERFORMED BY: REPP70 [facility] [id number] Information: SRC:UR [id number] COUNT (95518) Result 1 MUG (Normal) Comments: Mixed urogenital [id number] Colonies/mL Urine Culture,Comprehensive Final report (Normal) 27-Xbd-480107:54 Urinalysis, Office (00506) UA - BILIRUBIN Negative (Normal) UA - BLOOD Negative (Normal) UA - GLUCOSE Negative (Normal) UA - KETONES Negative mg/dL (Normal) UA - LEUKOCYTE ESTERASE Small (Normal) UA - NITRITE Negative (Normal) UA - PH 6.0 (Normal) UA - PROTEIN Negative mg/dL (Normal) UA - SPECIFIC GRAVITY 1.005 (Normal) URINE UROBILINGN KOLBY TIMED Normal mg/dL (Normal) 34-Zdw-582376:21 URINE TEA CULTURE (KOLBY Comments: PATIENT NOT FASTINGPERFORMED BY: REPP70 [facility] [id number] Information: SRC:UR [id number] COL COUNT) (59487) Result 1 BETAGB (Normal) Comments: Beta hemolytic [...] Disease, February,.) Urine Final report (Normal) Culture,Comprehensive 95-Mnk-25401:30 Urinalysis, Office (25766) UA - BILIRUBIN Negative (Normal) UA - BLOOD Hemolyzed Trace (Normal) UA - GLUCOSE Negative (Normal) UA - KETONES Negative mg/dL (Normal) UA - LEUKOCYTE ESTERASE Moderate (Normal) UA - NITRITE Negative (Normal) UA - PH 7.0 (Normal) UA - PROTEIN Negative mg/dL (Normal) UA - SPECIFIC GRAVITY 1.010 (Normal) URINE UROBILINGN KOLBY TIMED Normal mg/dL (Normal) 77-Mbc-450628:26 Microscopic Examination Comments: PATIENT WAS FASTINGPERFORMED BY: [employer]6370 [facility] [id number] Bacteria None seen (Normal) Epithelial Cells (non renal) 0-10 {/hpf} (Normal) Range: 0 - 10 Mucus Threads Present (Normal) RBC 4-10 {/hpf} (Abnormal) Range: 0 - 3 WBC 11-30 {/hpf} (Abnormal) Range: 0 - 5 :26 CBC WITH MANUAL DIFF Comments: PATIENT WAS FASTINGPERFORMED BY: Relative.aiNew Bridge Medical CenterHfeawg2316 [facility] [id number] Information: [id number] (78413) Baso (Absolute) 0.0 {x10E3/uL} (Normal) Range: 0.0-0.2 [...] 11.7-15.0 WBC 5.2 {x10E3/uL} (Normal) Range: 4.0-10.5 03-Ect-349023:26 URINALYSIS, W/ MICRO (39327) Comments: PATIENT WAS FASTINGPERFORMED BY: Relative.aiNew Bridge Medical CenterDphiee5835 [facility] [id number] Bilirubin Negative (Normal) Ketones Negative (Normal) Microscopic Examination See below: (Normal) Nitrite, Urine Negative (Normal) Occult Blood 1+ (Abnormal) Urobilinogen,Semi-Qn 0.2 mg/dL (Normal) Range: 0.0-1.9 Appearance Clear (Normal) Glucose Negative (Normal) pH 6.5 (Normal) Range: 5.0-7.5 Protein Trace (Normal) Specific Ulm 1.024 (Normal) Range: 1.005-1.030 Urine-Color Yellow (Normal) WBC Esterase 2+ (Abnormal) 68-Onr-258719:26 TSH (08947) Comments: PATIENT WAS FASTINGPERFORMED BY: [facility] [id number] TSH 2.590 {uIU/mL} (Normal) Range: 0.450-4.500 99-Ssn-181285:26 METABOLIC PANEL, COMPREHENSIVE Comments: PATIENT WAS FASTINGPERFORMED BY: REPP70 [facility] [id number] (38349) A/G Ratio 2.0 (Normal) Range: 1.1-2.5 Albumin, [...] Glucose, Serum 98 mg/dL (Normal) Range: 65-99 97-Oqb-661958:26 Vitamin D Hydroxy (55601) Comments: PATIENT WAS FASTINGPERFORMED BY: [employer]6370 [facility] [id number] Vitamin D, 25-Hydroxy 57.0 ng/mL (Normal) Range: 32.0-100.0 Comments: Recent studies consider the lower limit of 32.0 ng/mL to be athreshold for optimal health.Harman GALVAN. J Nutr. 2004;135(2):317-22. 50-Ief-847259:26 LIPID PANEL (58463) Comments: PATIENT WAS FASTINGPERFORMED BY: [employer]6370 [facility] [id number] Cholesterol, Total 145 mg/dL (Normal) Range: 100-199 HDL Cholesterol 45 mg/dL (Normal) Comments: According to ATP-III Guidelines, HDL-C >59 mg/dL is considered anegative risk factor for CHD. LDL Cholesterol Calc 81 mg/dL (Normal) Range: 0-99 LDL/HDL Ratio 1.8 {ratio_units} (Normal) Range: 0.0-3.2 Triglycerides 93 mg/dL (Normal) Range: 0-149 VLDL Cholesterol Alexander 19 mg/dL (Normal) Range: 40 :32 LIPID PANEL (75317) Comments: PATIENT WAS FASTINGPERFORMED BY: REPP70 [facility] [id number] Cholesterol, Total 168 mg/dL (Normal) Range: 100-199 HDL Cholesterol 43 mg/dL (Normal) Comments: According to ATP-III Guidelines, HDL-C >59 mg/dL is considered anegative risk factor for CHD. LDL Cholesterol Calc 110 mg/dL (Abnormal) Range: 0-99 LDL/HDL Ratio 2.6 {ratio_units} (Normal) Range: 0.0-3.2 Triglycerides 76 mg/dL (Normal) Range: 0-149 VLDL Cholesterol Alexander 15 mg/dL (Normal) Range: 40 41-Sfc-249755:32 METABOLIC PANEL, Comments: PATIENT WAS FASTINGPERFORMED BY: [employer]6370 [facility] [id number] Information: [id number] COMPREHENSIVE (66754) A/G Ratio 1.8 (Normal) Range: 1.1-2.5 Alkaline [...] Glucose, Serum 93 mg/dL (Normal) Range: 65-99 26-Xic-211539:32 Vitamin D Hydroxy (07673) Comments: PATIENT WAS FASTINGPERFORMED BY: [employer]6370 [facility] [id number] Vitamin D, 25-Hydroxy 39.3 ng/mL (Normal) Range: 32.0-100.0 Comments: Recent studies consider the lower limit of 32.0 ng/mL to be athreshold for optimal health.Harman GALVAN. J Nutr. 2004;135(2):317-22. :20 Glucose (2 Spec) Comments: PATIENT WAS FASTINGPERFORMED BY: [employer] Ybstga1016 [facility] [id number] Information: 75G DRAWN @ 1107AM Tolerance, S Glucose, 2 hour 92 mg/dL (Normal) Range: 65-139 Glucose, Fasting 97 mg/dL (Normal) Range: 65-99 :44 Vitamin D Hydroxy (43522) Comments: PATIENT WAS FASTINGPERFORMED BY: [employer] Vayphp0644 [facility] [id number] Vitamin D, 25-Hydroxy 38.1 ng/mL (Normal) Range: 32.0-100.0 Comments: Recent studies consider the lower limit of 32.0 ng/mL to be athreshold for optimal health.Harman GALVAN. J Nutr. 2004;135(2):317-22. :44 CBC WITH MANUAL DIFF Comments: PATIENT WAS FASTINGPERFORMED BY: Relative.aiNew Bridge Medical CenterDqfwbk5399 [facility] [id number] Information: [id number] (04924) Baso (Absolute) 0.1 {x10E3/uL} (Normal) Range: 0.0-0.2 [...] PANEL, COMPREHENSIVE Comments: PATIENT WAS FASTINGPERFORMED BY: LabV[facility]6370 [facility] [id number] (77277) ALT (SGPT) 24 [iU]/L (Normal) Range: 0-40 [...] (Abnormal) Range: 65-99 :44 HEPATIC FUNCTION PANEL (00879) Comments: PATIENT WAS FASTINGPERFORMED BY: LabCoNew Bridge Medical CenterMdfzcz4060 [facility] [id number] Bilirubin, Direct 0.14 mg/dL (Normal) Range: 0.00-0.40 :44 LIPID PANEL (53931) Comments: PATIENT WAS FASTINGPERFORMED BY: KAILA [facility] Cukbwq2576 [facility] [id number] LDL/HDL Ratio 2.3 {ratio_units} (Normal) Range: 0.0-3.2 HDL Cholesterol 45 mg/dL (Normal) Comments: According to ATP-III Guidelines, HDL-C >59 mg/dL is considered anegative risk factor for CHD. LDL Cholesterol Calc 104 mg/dL (Abnormal) Range: 0-99 Triglycerides 105 mg/dL (Normal) Range: 0-149 VLDL Cholesterol Alexander 21 mg/dL (Normal) Range: 5-40 Cholesterol, Total 170 mg/dL (Normal) Range: 100-199 10-Gui-788298:45 BILAT SCRN DIGITAL & CAD Radiology Report See Note (Normal) Comments: Exam Number: [id number] DIGITAL BILATERAL MAMMOGRAM Digital oblique and craniocaudal [...] mammograms werealso examined with computer-aided detection software ([employer]The [employer], [employer] Reported By: ARJUN WEATHERS 70-Vnd-529903:42 DEXA BONE DENSITY STUDY () Radiology Report See Note (Normal) Comments: Exam Number: [id number] DEXA BONE DENSITY STUDY A dexa scan [...] -9.8%. Treatment isadvised. Reported By: ARJUN WEATHERS 8-Euf-374134:04 CTA ABDOMEN W/WO CONTRAST Radiology Report See Note (Normal) Comments: Exam Number: [id number] CT ANGIOGRAM ABDOMEN WITH CONTRAST HISTORY Uncontrolled [...] andexcreted contrast normally. Reported By: Real Monk 42-Ryu-35196:33 Vitamin D Hydroxy (32203) Comments: PATIENT WAS FASTINGPERFORMED BY: KAILA LabCoNew Bridge Medical CenterQysomo0694 [facility] [id number] Vitamin D, 25-Hydroxy 35.2 ng/mL (Normal) Range: 32.0-100.0 Comments: Recent studies consider the lower limit of 32.0 ng/mL to be athreshold for optimal health.Harman GALVAN. J Nutr. 2004;135(2):317-22. 19-Jpn-01507:33 METABOLIC PANEL, Comments: PATIENT WAS FASTINGPERFORMED BY: KAIL[facility] Chlcdq7677 [facility] [id number] Information: [id number] COMPREHENSIVE (24516) ALT (SGPT) 23 [iU]/L (Normal) Range: 0-40 [...] mg/dL (Abnormal) Range: 65-99 :33 LIPID PANEL (55771) Comments: PATIENT WAS FASTINGPERFORMED BY: [employer] Qxpwgx8050 [facility] [id number] Cholesterol, Total 180 mg/dL (Normal) Range: 100-199 [...] Panel (14) Comments: PATIENT WAS FASTINGPERFORMED BY: [employer] Ssjagv9134 [facility] [id number] A/G Ratio 1.6 (Normal) Range: 1.1-2.5 Albumin, [...] With LDL/HDL Comments: PATIENT WAS FASTINGPERFORMED BY: REPP70 [facility]123[facility] [id number] Ratio Cholesterol, Total 156 mg/dL (Normal) Range: [...] ng/mL (Normal) Comments: PATIENT WAS FASTINGPERFORMED BY: [employer] Xinjam1707 [facility] [id number] :29 Range: 32.0-100.0 Comments: Recent studies consider the lower limit of 32.0 ng/mL to be athreshold for optimal health.Harman GALVAN. J Nutr. 2004;135(2):317-22. D-DIMER QUANT <200 ng/mL (Normal) Comments: NORMAL D-Dimer level indicates no DVT or PE. 0:05 TROPONIN-I < 0.04 ng/mL Comments: TROPONIN-I EXPECTED VALUES < 0.50 NEGATIVE 0.50 - 1.49 INDETERMINANT > OR = 1.50 SUGGEST ND 0:05 (Normal) VIT D,25 52969 16.5 ng/mL Range: 32.0-100.0 0:05 (Abnormal) Comments: Recent studies consider the lower limit of 32.0 ng/mL to dulce maria threshold for optimal health.Harman GALVAN. J Nutr. 2004;135(2):317- 22.Performed At: [address] [id number] VITAMIN B12 403 pg/mL (Normal) Range: 211-911 0:05 19-Nsp-596014:38 Microscopic Examination Comments: PATIENT WAS FASTINGPERFORMED BY: [employer] Ervjal1493 [facility] [id number] Bacteria Few (Normal) Epithelial Cells (non renal) 0-10 {/hpf} (Normal) Range: 0 - 10 Mucus Threads Present (Normal) RBC 0-3 {/hpf} (Normal) Range: 0 - 3 WBC 6-10 {/hpf} (Abnormal) Range: 0 - 5 65-Oef-799263:38 URINALYSIS W/O MICRO (20581) Comments: PATIENT WAS FASTINGPERFORMED BY: [employer] Wgknsy[address] [address] [id number] Appearance Clear (Normal) Bilirubin Negative (Normal) Glucose Negative (Normal) Ketones Negative (Normal) Microscopic Examination See below: (Normal) Nitrite, Urine Negative (Normal) Occult Blood Negative (Normal) pH 6.0 (Normal) Range: 5.0-7.5 Protein Trace (Normal) Specific Ulm 1.022 (Normal) Range: 1.005-1.030 Urine-Color Yellow (Normal) Urobilinogen,Semi-Qn 0.2 mg/dL (Normal) Range: 0.0-1.9 WBC Esterase 1+ (Abnormal) :38 TSH (15756) Comments: PATIENT WAS FASTINGPERFORMED BY: Relative.ai[address] [id number] TSH 2.313 {uIU/mL} (Normal) Range: 0.450-4.500 :38 CBC WITH MANUAL DIFF (38329) Comments: PATIENT WAS FASTINGClinical Information: ADD DRAW FEE [id number] ADD [id number] PERFORMED BY: LabCoNew Bridge Medical CenterAgoyeq1303 [facility] [id number] Baso (Absolute) 0.0 {x10E3/uL} (Normal) Range: 0.0-0.2 [...] 11.7-15.0 WBC 8.9 {x10E3/uL} (Normal) Range: 4.0-10.5 06-Klj-126859:38 HEPATIC FUNCTION PANEL Comments: PATIENT WAS FASTINGPERFORMED BY: LabCoNew Bridge Medical CenterJsrgfy0442 [facility] [id number] (58525) Albumin, Serum 4.4 g/dL (Normal) Range: 3.5-4.8 Alkaline Phosphatase, S 85 [iU]/L (Normal) Range: 25-165 ALT (SGPT) 13 [iU]/L (Normal) Range: 0-40 AST (SGOT) 15 [iU]/L (Normal) Range: 0-40 Bilirubin, Direct 0.12 mg/dL (Normal) Range: 0.00-0.40 Bilirubin, Total 0.4 mg/dL (Normal) Range: 0.1-1.2 Protein, Total, Serum 6.7 g/dL (Normal) Range: 6.0-8.5 79-Jxg-682134:38 LIPID PANEL (02145) Comments: PATIENT WAS FASTINGPERFORMED BY: LabV[facility] Affairs [facility] System6370 [facility] [id number] Cholesterol, Total 161 mg/dL (Normal) Range: 100-199 [...] Report See Note (Normal) Comments: Exam Number: [id number] BILATERAL SCREENING DIGITAL MAMMOGRAM CLINICAL INFORMATIONScreening. Bilateral [...] he mammogramswere also examined with computer-aided detection software([facility].). Reported By: DRE BEVERLY M.D. 23-Buo-849556:47 KNEE,1 OR 2 VIEWS Radiology Report See Note (Normal) Comments: Exam Number: [id number] LEFT KNEE - 4 VIEWS CLINICAL INFORMATIONOsteoarthritis. [...] left knee. Reported By: DRE BEVERLY M.D. 49-Otd-786695:23 URINE TEA CULTURE (KOLBY COL Comments: PATIENT NOT FASTINGClinical Information: SRC:UR ADD [id number] PERFORMED BY: REPP70 [employer] [place] [id number] COUNT) (38126) Result 1 NG36 (Normal) Comments: No growth in 36 - 48 hours. Urine Culture,Comprehensive Final report (Normal) 17-Reo-524365:51 Urinalysis, Office (25407) UA - BILIRUBIN Negative (Normal) UA - BLOOD Non Hemolyzed Trace (Normal) UA - GLUCOSE Negative (Normal) UA - KETONES Negative mg/dL (Normal) UA - LEUKOCYTE ESTERASE Trace (Normal) UA - NITRITE Negative (Normal) UA - PH 6.0 (Normal) UA - PROTEIN Negative mg/dL (Normal) UA - SPECIFIC GRAVITY 1.015 (Normal) URINE UROBILINGN KOLBY TIMED Normal mg/dL (Normal) 65-Qbu-75972:49 CBC With Differential/Platelet Comments: PATIENT WAS FASTINGPERFORMED BY: REPP70 Cook123[employer] [place] [id number] Baso (Absolute) 0.0 {x10E3/uL} (Normal) Range: 0.0-0.2 [...] Panel (14) Comments: PATIENT WAS FASTINGPERFORMED BY: LabCoNew Bridge Medical CenterWizgeu5513 [facility] [id number] A/G Ratio 1.8 (Normal) Range: 1.1-2.5 Albumin, [...] Serum 99 mg/dL (Normal) Range: 65-99 If -Danish >60 mL/min (Normal) Range: 60-128 Comments: Note: [...] With LDL/HDL Comments: PATIENT WAS FASTINGPERFORMED BY: iPr[employer] GlobalUNC Health [facility] [id number] Ratio Cholesterol, Total 164 mg/dL (Normal) Range: [...] Microscopic Examination Comments: PATIENT WAS FASTINGPERFORMED BY: REPP70 [facility] [id number] Bacteria Few (Normal) Epithelial Cells (non 0-10 {/hpf} Range: 0 - 10 renal) (Normal) Mucus Threads Present (Abnormal) RBC 0-3 {/hpf} (Normal) Range: 0 - 3 WBC 6-10 {/hpf} Range: 0 - 5 (Abnormal) TSH 2.465 {uIU/mL} Comments: PATIENT WAS FASTINGPERFORMED BY: Relative.aiNew Bridge Medical CenterEswkre2377 [facility] [id number] :49 (Normal) Range: 0.350-5.500 Comments: Adult TSH concentrations below 5.5 uIU/mL do not rule out the presence of subclinical hypothyroidism. . EFFECTIVE Apr the adult reference interval for TSH will be changing to 0.450 - 4.500 uIU/mL. :49 Urinalysis, Routine Comments: PATIENT WAS FASTINGPERFORMED BY: Relative.aiNew Bridge Medical CenterBfkhzy6147 [facility] [id number] Appearance Clear (Normal) Bilirubin Negative (Normal) Glucose Negative (Normal) Ketones Negative (Normal) Microscopic Examination See below: (Normal) Nitrite, Urine Negative (Normal) Occult Blood Negative (Normal) pH 6.0 (Normal) Range: 5.0-7.5 Protein Negative (Normal) Specific Ulm 1.020 (Normal) Range: 1.005-1.030 Urine-Color Yellow (Normal) Urobilinogen,Semi-Qn 0.2 mg/dL (Normal) Range: 0.0-1.9 WBC Esterase 2+ (Abnormal) :03 DEXA BONE DENSITY STUDY () Radiology Report See Note (Normal) Comments: Exam Number: [id number] BONE DENSITOMETRY HISTORYOsteoporosis. TECHNIQUE Bone densitometry of [...] than in 2003, and 5.1% less than vu5779. IMPRESSIONThere is osteoporosis of the lumbar spine and left hip. Reported By: LAYO ROTH M.D. 29-Oct-20078:16 METABOLIC PANEL, BASIC (35876) Comments: PATIENT WAS FASTINGClinical Information: ADD DRAW FEE [id number] ADD [id number] PERFORMED BY: LabCoNew Bridge Medical CenterQmlcot9830 [facility] [id number] BUN 15 mg/dL (Normal) Range: 5-26 BUN/Creatinine Ratio 19 (Normal) Range: 8-27 Calcium, Serum 9.1 mg/dL (Normal) Range: 8.5-10.6 Carbon Dioxide, Total 27 mmol/L (Normal) Range: 20-32 Chloride, Serum 104 mmol/L (Normal) Range: 96-109 Creatinine, Serum 0.8 mg/dL (Normal) Range: 0.5-1.5 Glucose, Serum 94 mg/dL (Normal) Range: 65-99 Potassium, Serum 4.0 mmol/L (Normal) Range: 3.5-5.5 Sodium, Serum 141 mmol/L (Normal) Range: 135-148 00-Syi-366202:12 UNILAT DIA DIGITAL & CAD Radiology Report See Note (Normal) Comments: Exam Number: [id number] MAMMOGRAM, UNILATERAL LEFT DIAGNOSTIC DIGITAL AND CAD [...] mammograms werealso examined with computer-aided detection software ([employer], [employer] Reported By: LAYO ROTH M.D. 31-Ccz-521936:21 BILAT SCRN DIGITAL & CAD Radiology Report See Note (Normal) Comments: Exam Number: [id number] MAMMOGRAM, BILATERAL SCREENING DIGITAL AND CAD HISTORYRoutine [...] wer ealso examined with computer-aided detection software ([employer], [employer] Reported By: LAYO ROTH M.D. :06 [...] 0.2 EU/dl (Normal) Range: 0.2 - 1.0 96-Quk-14914:12 TSH 3.09 {uIU/mL} (Normal) Range: 0.34-4.82 8-Tve-248169:45 Urinalysis, Office (94676) UA - BILIRUBIN Negative (Normal) UA - [...] X-Ray Planned Observations CBC W/AUTO DIFF WBC (55779)Indication: Hypertensive heart disease without congestive heart failure On: :25 Request METABOLIC PANEL, COMPREHENSIVE (33160)Indication: Hypertensive heart disease without congestive heart failure On: :25 Request VITAMIN B-12 (CYANOCOBALAMIN) (74698)Indication: Vitamin B 12 deficiency On: :24 Request HgA1C , Office (08996)Indication: Impaired fasting glucose On: 11-Luf-937343:13 Request MICROALBUMIN: CREATININE RATIO (62265) AND (24017)Indication: Impaired fasting glucose On: 0-Zsw-648341:26 Request CBC W/AUTO DIFF WBC (53908)Indication: Impaired fasting glucose On: 1-Tph-667080:26 Request METABOLIC PANEL, COMPREHENSIVE (40064)Indication: Impaired fasting glucose On: 9-Xec-720306:25 Request PTT (Activated Partial Thromboplastin Time) (62111)Indication: Pre-operative exam (Renamed from Encounter for pre-operative examination) On: 4-Kup-082543:10 Request PT (Prothrobim Time) (90173)Indication: Pre-operative exam (Renamed from Encounter for pre-operative examination) On: 5-Srs-582542:10 Request URINALYSIS, W/ MICRO (57123)Indication: Pre-operative exam (Renamed from Encounter for pre-operative examination) On: 3-Zuh-208764:09 Request CBC W/AUTO DIFF WBC (20871)Indication: Pre-operative exam (Renamed from Encounter for pre-operative examination) On: 5-Nxb-807457:09 Request METABOLIC PANEL, COMPREHENSIVE (98327)Indication: Pre-operative exam (Renamed from Encounter for pre-operative examination) On: 2-Vqz-494630:09 Request CBC W/AUTO DIFF WBC (29658)Indication: Impaired fasting glucose On: 82-Scs-906587:56 Request METABOLIC PANEL, COMPREHENSIVE (92337)Indication: Impaired fasting glucose On: 21-Nug-998745:56 Request VITAMIN B-12 (CYANOCOBALAMIN) (14442)Indication: Vitamin B 12 deficiency On: 78-Rnt-133988:56 Request HgA1C , Office (13407)Indication: Impaired fasting glucose On: 64-Mpn-629352:34 Request URINE TEA CULTURE-KOLBY COL COUNT (83449)Indication: Urinary tract infection, site not specified On: 7-Dbl-398774:37 Request URINE TEA CULTURE-KOLBY COL COUNT (23475)Indication: Urinary frequency On: 56-Piq-269468:40 Request LIPID PANEL (57121)Indication: Hypercholesterolemia On: 66-Koe-972223:27 Request Hemoglobin Glyclated (HGB A1C) (13416)Indication: Impaired fasting glucose On: 98-Yuk-218763:27 Request METABOLIC PANEL, COMPREHENSIVE (32318)Indication: Hypertensive heart disease without congestive heart failure On: 89-Tal-247063:27 Request URINE TEA CULTURE-IDENTIFICATN (82078)Indication: Urinary frequency On: 89-Gxh-88329:43 Request HgA1C , Office ([id number])Indication: Impaired fasting glucose On: 28-Oct-20149:47 Request RHEUMATOID FACTOR-QUANT (75471)Indication: Branch retinal artery occlusion of right eye On: 45-Byl-504533:21 Request SURI (ANTINUCLEAR ANTIBODY) ([id number])Indication: Branch retinal artery occlusion of right eye On: 03-Iuv-944800:21 Request Protein S Profile ([id number])Indication: Branch retinal artery occlusion of right eye On: 56-Zvh-308943:21 Request Protein C Profile ([id number])Indication: Branch retinal artery occlusion of right eye On: Request Antiphospholipid atb (71612)Indication: Branch retinal artery occlusion of right eye On: Request ANTICOAG ANTTHROMB III & ASSAY (85201)Indication: Branch retinal artery occlusion of right eye On: Request ANTITHROMBIN III ACTIVTY (11939)Indication: Branch retinal artery occlusion of right eye On: Request CLOTTING FACTOR II (76259)Indication: Branch retinal artery occlusion of right eye On: Request Factor V Leiden (44404)Indication: Branch retinal artery occlusion of right eye On: Request Protein Electrophoresis, Serum (SPEP) (84275)Indication: Branch retinal artery occlusion of right eye On: Request UPEP (98817)Indication: Branch retinal artery occlusion of right eye On: Request C-REACTIVE PROTEIN ([id number])Indication: Branch retinal artery occlusion of right eye On: Request SED RATE ERYTHROCYTE ([id number])Indication: Branch retinal artery occlusion of right eye On: Request CBC W/AUTO DIFF WBC ([id number])Indication: Impaired fasting glucose On: 37 Request Comments: 4 months MICROALBUMIN: CREATININE RATIO (05520) AND (67732)Indication: Impaired fasting glucose On: :37 Request Comments: 4 months LIPID PANEL (12736)Indication: Impaired fasting glucose On: 37 Request Comments: 4 mnths METABOLIC PANEL, COMPREHENSIVE (83945)Indication: Impaired fasting glucose On: :37 Request Comments: 4 months Calcium Serum (78130)Indication: Abnormal blood chemistry On: :44 Request Comments: 2 weeks URINE TEA CULTURE-KOLBY COL COUNT ([id number])Indication: Urinary tract infection, site not specified On: 68-Ztb-601488:28 Request SPEP ([id number])Indication: Osteoporosis On: :13 Request UPEP (11573)Indication: Osteoporosis On: 78-Ydl-334738:13 Request GLUCOSE TOLERANCE TEST (GTT) 2 hour (02032)Indication: Hyperglycemia On: 36-Cxk-015383:07 Request Vitamin D Hydroxy (58782)Indication: Vitamin D deficiency On: 60-Qro-70971:50 Request Vitamin D Hydroxy (05610) On: 12-Jwn-757342:58 Request ASSAY, TROPONIN, QUANTITATIVE (aka Troponin I) (35393)Indication: Chest pain On: 23-Iup-646808:06 Request D-Dimer (79275)Indication: Chest pain On: 89-Ett-778584:05 Request VITAMIN B-12 (CYANOCOBALAMIN) (33774)Indication: Fatigue On: 36-Vrd-644612:00 Request Vitamin D Hydroxy (75637)Indication: Osteoporosis On: 95-Mcx-17022:59 Request METABOLIC PANEL, COMPREHENSIVE (24770)Indication: Hypertensive heart disease without congestive heart failure On: :28 Request LIPID PANEL ([id number])Indication: Hypercholesterolemia On: :27 Request HEPATIC FUNCTION PANEL (56810)Indication: Hypercholesterolemia On: :27 Request URINALYSIS W/O MICRO ([id number])Indication: lower ext edema On: 10-Ucz-174507:32 Request TSH ([id number])Indication: lower ext edema On: :32 Request CBC WITH MANUAL DIFF ([id number])Indication: lower ext edema On: :32 Request METABOLIC PANEL, COMPREHENSIVE (66143)Indication: lower ext edema On: :32 Request LIPID PANEL ([id number])Indication: Hypercholesterolemia On: :56 Request HEPATIC FUNCTION PANEL ([id number])Indication: Hypercholesterolemia On: 11-Cmq-949376:56 Request URINALYSIS W/O MICRO ([id number])Indication: Hypertensive heart disease without congestive heart failure On: :03 Request TSH ([id number])Indication: Hypertensive heart disease without congestive heart failure On: :03 Request METABOLIC PANEL, COMPREHENSIVE ([id number])Indication: Hypertensive heart disease without congestive heart failure On: :03 Request CBC WITH MANUAL DIFF ([id number])Indication: Hypertensive heart disease without congestive heart failure On: :03 Request HEPATIC FUNCTION PANEL ([id number])Indication: Hypercholesterolemia On: 0-Qlf-437126:03 Request LIPID PANEL ([id number])Indication: Hypercholesterolemia On: 9-Fyl-590010:03 Request URINE TEA CULTURE-IDENTIFICATN ([id number])Indication: Urinary tract infection, site not specified On: 5-Uca-144616:34 Request URINALYSIS W/O MICRO ([id number])Indication: Hypertensive heart disease without congestive heart failure On: 93-Wnh-697874:20 Request TSH ([id number])Indication: Hypertensive heart disease without congestive heart failure On: 95-Yma-794846:20 Request METABOLIC PANEL, COMPREHENSIVE ([id number])Indication: Hypertensive heart disease without congestive heart failure On: 07-Syj-402097:20 Request LIPID PANEL ([id number])Indication: Hypercholesterolemia On: :19 Request CBC WITH MANUAL DIFF ([id number])Indication: Hypertensive heart disease without congestive heart failure On: 41-Zhj-131082:19 Request Planned Encounters Medical; [facility] Exam (DF Nurse) - On: 31-Dec-2018 10:00 [facility] NURSE, [facility] Medical; [facility] Exam (Doctor) - On: 22-Jan-2019 13:30 [facility] Fast DO, Audrey A Fast DO, Audrey A Planned Procedures COMPUTED TOMOGRAPHY ANGIOGRAPHY OF On: 24-Jun-2018 Intent BOTH CAROTID ARTERIES ([id number])By: Fast DO, Audrey A Fast DO, Audrey A SCREENING DIGITAL TOMOSYNTHESIS OF On: 24-Jun-2018 Intent BREAST ([id number])By: Fast DO, Audrey A Comments: dec Fast DO, Audrey A Flu Vaccine (Quadrivalent) 92849Hk: On: 24-Jun-2018 Intent Fast DO, Audrey A Fast DO, Audrey A Comments: Lot: [id number]: 03/23/19Site: L dltd, IMDose prefilled syringegiven by: CManchakVIS reviewed and ABN signed Cartoid DopplerBy: Fast DO, Audrey A On: 13-Mar-2018 Intent Fast DO, Audrey A Comments: sept ELECTROCARDIOGRAM, COMPLETE (ECG) On: 04-Dec-2017 Intent ([id number])By: Fast DO, Audrey A Fast DO, Audrey A DEXA SCAN AXIAL SKELETON ([id number])By: On: 04-Dec-2017 Intent Fast DO, Audrey A Fast DO, Audrey A Comments: DUE IN DECEMBER Doppler Ultrasound OtherBy: Fast DO, On: 06-Aug-2017 Intent Audrey A Fast DO, Audrey A Comments: left leg SCREENING DIGITAL TOMOSYNTHESIS OF On: 06-Aug-2017 Intent BREAST ([id number])By: Fast DO, Audrey A Fast DO, Audrey A Flu Vaccine (Quadrivalent) 16272Yj: On: 06-Aug-2017 Intent Fast DO, Audrey A Fast DO, Audrey A Comments: Lot #:[id number] date:03/11/18Amount given:0.5mlRoute: IMSite given: deltoidGiven by: ARABELLA Burgos Radiology - Chest- PA and LatBy: On: 02-May-2017 Intent Fast DO, Audrey A Fast DO, Audrey A Cartoid DopplerBy: Fast DO, Audrey A On: 02-May-2017 Intent Fast DO, Audrey A ELECTROCARDIOGRAM, COMPLETE (ECG) On: 02-May-2017 Intent ([id number])By: Fast DO, Audrey A Fast DO, Comments: ekg- lvh with poor r wave progression no change sinus and no st/t wave changes Audrey A Flu Vaccine (Quadrivalent) 61768Bc: On: 03-Aug-2016 Intent Fast DO, Audrey A Fast DO, Audrey A Comments: FLUlot: [id number]:02/07site:Lt deltoidroute:IMdose:.5mlARABELLA VAZQUEZ Cartoid DopplerBy: Fast DO, Audrey A On: 05-Jun-2016 Intent Fast DO, Audrey A Comments: bilateral MAMMOGRAM, SCREENING, BOTH BREAST On: 05-Jun-2016 Intent ([id number])By: Fast DO, Audrey A Fast DO, Comments: nov Audrey A ELECTROCARDIOGRAM, COMPLETE (ECG) On: 05-Jun-2016 Intent ([id number])By: Fast DO, Audrey A Fast DO, Comments: [...] B12lot:5200exp:02/07site:lt deltroute:IMdose:ARABELLA BANSAL DEXA SCAN AXIAL SKELETON (31700)By: On: 12-Nov-2015 Intent Fast DO, Audrey A Fast DO, Audrey A MAMMOGRAM, SCREENING, BOTH BREAST On: 14-Jul-2015 Intent ([id number])By: Fast DO, Audrey A Fast DO, Audrey A Cartoid DopplerBy: Fast DO, Audrey A On: 14-Jul-2015 Intent Fast DO, Audrey A Flu Vaccine (Quadrivalent) 59940Zp: On: 14-Jul-2015 Intent Fast DO, Audrey A Fast DO, Audrey A Comments: Lot #:[id number] date: 02/2016Amount given:prefilled syringeSite given:L Dltd, IMGiven by: ANA Caruso and PEDRITO signed ADMINISTRATION OF INFLUENZA VIRUS On: 14-Jul-2015 Intent VACCINE ([id number])By: Fast DO, Audrey A Fast DO, Audrey A EKG (07098)By: Fast DO, Audrey A On: 08-Jul-2014 Intent Fast DO, Audrey A Comments: ekg showed normal sinus rhythym, normal axis, no acute st/t wave changes lvh - poor r wave progresxsion no change Echo CompleteBy: Fast DO, Audrey A On: 08-Jul-2014 Intent Fast DO, Audrey A FLU VAC, SPLIT, >3 YEARS, INTRAMUSC On: 08-Jul-2014 Intent ([id number])By: Fast DO, Audrey A Fast DO, Comments: Lot:[id number]:03/23/15Dose:0.5mLRoute:IMSite:L DltdGiven By:GRACIELA signed Audrey A ADMINISTRATION OF INFLUENZA VIRUS On: 08-Jul-2014 Intent VACCINE ([id number])By: Fast DO, Audrey A Fast DO, Audrey A MAMMOGRAM, SCREENING, BOTH BREAST On: 24-Jun-2014 Intent ([id number])By: Fast DO, Audrey A Fast DO, Audrey A EKG (40391)By: Fast DO, Audrey A On: 24-Jun-2014 Intent [...] BONE DENSITY, AXIAL SKELETON On: 28-May-2013 Intent ([id number])By: Fast DO, Audrey A Fast DO, Comments: sep Audrey A Eprescribed prescriptions ([id number])By: On: 28-May-2013 Intent Kindra Vargas MAMMOGRAM, SCREENING, BOTH BREASTS On: 22-Jan-2013 Intent ([id number])By: Fast DO, Audrey A Fast DO, Comments: february Audrey A Eprescribed prescriptions ([id number])By: On: 22-Jan-2013 Intent Kindra Vargas Eprescribed prescriptions ([id number])By: On: 15-Oct-2012 Intent Kindra Vargas Rocephon Injection, 1 Gm ([id number])By: On: 09-Sep-2012 Intent Fast DO, Audrey A Fast DO, Audrey A Comments: [id number] 5.141 gram,plit into 2 injections of 2ml with lidocaine 1%R hip, IMMegan Eprescribed prescriptions ([id number])By: On: 09-Sep-2012 Intent Kindra Vargas EKG (92504)By: Fast DO, Audrey A On: 30-Aug-2012 Intent [...] MAMMOGRAM, SCREENING, BOTH BREASTS On: 12-Dec-2011 Intent ([id number])By: Fast DO, Audrey A Fast DO, Comments: a A TDAP VACCINE >7 IM ([id number])By: [place] On: 17-May-2011 Intent DO, Audrey A Fast DO, Audrey A Comments: Lot #:[id number] date:mount given:0.5mlRoute: IMSite given:left deltGiven by: ARABELLA Burgos EKG ([id number])By: Kindra Vargas On: 17-May-2011 Intent Comments: ekg showed normal sinus rhythym, normal axis, no acute st/t wave changes poor r wave progerssion- lvh no change DXA, BONE DENSITY, AXIAL SKELETON On: 17-May-2011 Intent ([id number])By: Fast DO, Audrey A Fast DO, Comments: aug Audrey A Breast Screening - BilateralBy: Fast On: 06-Sep-2010 Intent DO, Audrey A Fast DO, Audrey A Comments: bilateral mammo MAMMOGRAM, SCREENING, BOTH BREASTS On: 02-Sep-2010 Intent ([id number])By: Fast DO, Audrey A Fast DO, Audrey A Solu -Medrol Injection, 125 mg On: 25-Apr-2010 Intent ([id number])By: Bc BERG, Shandra Denney Comments: 2ml given im rt hip [id number] 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 EKG (08629)By: Kindra Vargas On: 01-Feb-2010 Intent Comments: ekg- sinus edy lvh no acute change MAMMOGRAM, SCREENING, BOTH BREASTS On: 18-Aug-2009 Intent ([id number])By: Fast DO, Audrey A Fast DO, Audrey A DXA, BONE DENSITY, AXIAL SKELETON On: 18-Aug-2009 Intent (16416)By: Fast DO, Audrey A Fast DO, Comments: oct Audrey A Bio Z (85430)By: Fast DO, Audrey A On: 12-May-2009 Intent Fast DO, Audrey A Comments: high svr on bioz normal cardiac output Renal Duplex ScanBy: Fast DO, Audrey On: 12-May-2009 Intent A Fast DO, Audrey A Bio Z ([id number])By: Fast DO, Audrey A On: 11-Jan-2009 Intent Fast DO, Audrey A Comments: good cardiac output and svr -- bpis good EKG ([id number])By: Fast DO, Audrey A On: 11-Jan-2009 Intent Fast DO, Audrey A Comments: ekg showed normal sinus rhythym, normal axis, no acute st/t wave changes lvh RIGO (Ankle Brachial Index) On: 30-Sep-2008 Intent ([id number])By: Floresita Parker LPN ADMINISTRATION OF INFLUENZA VIRUS On: 10-Jul-2008 Intent VACCINE (G0008)By: Saida Oreilly LPN FLU VAC, SPLIT, >3 YEARS, INTRAMUSC On: 10-Jul-2008 Intent (77323)By: Saida Oreilly LPN Comments: 0.5cc given im lt loyd H.Horn MAMMOGRAM, SCREENING, BOTH BREASTS On: 30-Jun-2008 Intent ([id number])By: Fast DO, Audrey A Fast DO, Audrey A RIGO (Ankle Brachial Index) On: 30-Jun-2008 Intent ([id number])By: Fast DO, Audrey A Fast DO, Comments: nov Audrey A Radiology - Knee - Left - Weight On: 19-May-2008 Intent BearingBy: Fast DO, Audrey A Fast DO, Audrey A Venous Doppler - BothBy: Fast DO, On: 22-Apr-2008 Intent Audrey A Fast DO, Audrey A Comments: lower ext Bio Z ([id number])By: Fast DO, Audrey A On: 22-Apr-2008 Intent Fast DO, Audrey A Comments: parameters good EKG (11241)By: Fast DO, Audrey A On: 22-Apr-2008 Intent Fast DO, Audrey A Comments: ekg showed normal sinus rhythym, normal axis, no acute st/t wave changes poor r wave progression unchanged Echo CompleteBy: Fast DO, Audrey A On: 22-Apr-2008 Intent Fast DO, Audrey A RIGO (Ankle Brachial Index) On: 07-Aug-2007 Intent (56140)By: Marium Liu RN IRGO (Ankle Brachial Index) On: 26-Jul-2007 Intent ([id number])By: Fast DO, Audrey A Fast DO, Audrey A DXA, BONE DENSITY, AXIAL SKELETON On: 26-Jul-2007 Intent (16635)By: Fast DO, Audrey A Fast DO, Comments: in sumaya [place] A MAMMOGRAM, SCREENING, BOTH BREASTS On: 26-Jul-2007 Intent (69719)By: Fast DO, Audrey A Fast DO, Audrey A Pulse Oximetry (27395)By: Noe BETTENCOURT, On: 20-Nov-2006 Intent Marium Holter Moniter (81652)By: Ly, On: 10-Sep-2006 Intent Sridevi Holter Moniter (67389)By: [place] NIETO, On: 30-Jul-2006 Intent Audrey A [...] Patient Instructions Indication: [facility] : How to access health [...] Follow up for chronic medical issues: still [id number] shots in the eye- they have been [...] The patient does have durable power of claims attorney and living will. The patient has [...] The patient does have durable power of claims attorney and living will. The patient has [...] only taking 5000 5 days aweek and 86241 twice a week- - take 49710 4 x a week- she was out [...] chronic medical issues: didnt get colonsocopy- [facility] office never called her to schedule- [...] Internal Medicine End: 12-Jun-2006 19:47 Payers MedicareAnthem BC/[facility], ANA/JOESPH CHAVEZ CONCHA; a guarantor
--- OUTSIDE RECORDS SUMMARY | 2018-12-16 23:22 | XMS RPT_ITS ---
:1935 Author Organization OHIP Care Team Providers Name Role Phone Fast DO, Audrey A Attending Unavailable Fast DO, Audrey A Referring Unavailable Fast DO, Audrey A Consulting Unavailable Fast, Audrey Attending Unavailable Fast, Audrey Primary Care Unavailable Fast, Audrey Attending Unavailable Fast, Audrey Referring Unavailable Fast, Audrey Primary Care Unavailable Fast, Audrey Attending Unavailable Fast, Audrey Referring Unavailable Fast, Audrey Primary Care Unavailable Fast, Audrey Attending Unavailable Fast, Audrey Referring Unavailable Fast, Audrey Primary Care Unavailable PROBLEMS PROBLEMS DATE TYPE CONDITION / CODE ATTENDING STATUS SOURCE 06/11/2018 Unknown I65.23 - Fast, Audrey Active [facility] bilateral Repository carotid arteries / I65.23(ICD-10) PROCEDURES PROCEDURES No Procedure Records FoundRESULTS RESULTS SCREENING MAMM (CAD), Observed: 10/14/2018 Status: F Source: [place] BILAT 12[facility] Imaging Services [address] [place] [address] SCREENING MAMM (CAD), BILAT MR#: [id number] Acct: [id number] Name: MANISH KERN Rep #: [id number] : 1935 F 83 From: Arjun Dan MD PCP: Audrey Golden DO Status: REG CLI Study: SCREENING MAMM (CAD), BILAT Date of Exam: 10/14/18 Exam# [id number] Ordering Dr: Audrey Golden DO MAMMOGRAPHY - BILATERAL SCREENING REASON FOR EXAM: Female, 83 years old. Routine annual screening examination. PERTINENT HISTORY: Non-contributory. TECHNIQUE: Digital bilateral breast jesse (3D mammographic acquisition) in the CC and MLO projections. 2-D mediolateral oblique (MLO) and craniocaudad (CC) views of both breasts were obtained. CAD: Full Field Digital Mammography with Computer Added Detection was performed. COMPARISON: Comparison is made with prior study dated August 25, 2017 and August 11, 2016. FINDINGS: Breast Composition: There are scattered areas of fibroglandular density. There are no dominant masses or suspicious calcifications. Stable small benign-appearing left axillary lymph nodes. No other significant abnormalities are identified. There has been no significant change since the prior study. BI/SCREENING MAMM (CAD), BILAT IMPRESSION: Stable bilateral screening mammogram. Yearly follow-up mammogram recommended. (A) ASSESSMENT CATEGORY: BIRADS Category 2: Benign. A letter regarding these results will be sent to the patient by the facility within 30 days. Approximately 10% of breast cancers are not detected by mammography. A normal mammogram should not delay biopsy of a clinically suspicious abnormality. [id number] Electronically Signed: Arjun Dan MD at 13:45 EST Tel [phone], Service support , CC: Audrey Golden DO Lithographic General Worker: Signed CREATININE FINGERSTICK Collected: 07/02/2018 Status: F Source: [place] 9:32 AM [facility] REPOSITORY TYPE CODE TESTS RESULT OUT OF RANGE REFERENCE UNITS LAB L9100.0210 0.55-1.02 mg/dL Normal CREATININE WB 0.7 LAB L9100.0220 >60 mL/min EGFR WB Normal > 60.0000 Performed By: #### L9100.0200 #### [facility] Laboratory Point of Care [address] [place] [address] CTA NECK W/WO Observed: 07/02/2018 Status: F Source: [place] CONTRAST 9:24 AM [facility] REPOSITORY [facility] Imaging Services [address] [place] [address] CTA Neck W/WO Contrast MR#: [id number] Acct: [id number] Name: MANISH KERN Rep #: [id number] : 1935 F 83 From: Alvaro Lancaster MD PCP: Audrey Golden DO Status: REG CLI Study: CTA Neck W/WO Contrast Date of Exam: 07/02/18 Exam# [id number] Ordering Dr: Audrey Golden DO STUDY: CT ANGIOGRAM OF THE NECK WITH CONTRAST REASON FOR EXAM: Female, 83 years old. Bilateral carotid stenosis. RADIATION DOSAGE (If Supplied By Facility): CTDIvol = ( 19.05 ) mGy, DLP = ( 524.63 ) mGycm. Individualized dose optimization techniques were used for this CT.? TECHNIQUE: IV contrast Isovue-370, 100 mL. Thin slice helical [address] endocrine was performed of the cervical vasculature. Coronal and sagittal, curved planar, 3-D volume rendered reformatted images and MIP reformatted images saved to the PACS archive. COMPARISON: Carotid duplex ultrasound 06/11/2018. FINDINGS: Extra cranial soft tissues including orbital contents exhibit no acute process. Paranasal sinuses are clear. Mastoid air cells and middle ear cavities are clear. Craniofacial osseous structures unremarkable. There is prominent multilevel cervical degenerative disc disease with uncovertebral joint hypertrophy contributing to foraminal narrowing between C5-C6, C6-C7. Mild to moderate foraminal narrowing. Apical lungs are clear but with features consistent with underlying COPD/emphysema. Apical thoracic cage intact. Upper thoracic soft tissues unremarkable. Supraclavicular soft tissues exhibit no acute process. Mild heterogeneity of the thyroid gland without dominant nodule. No cervical mass or lymphadenopathy. Normal submandibular and parotid glands. Normal pharyngeal and laryngeal structures. No acute intracranial process is evident in limited evaluation. [...] Vascular Measurements in Arterial Occlusive Disease. RadioGraphics 2005;25:5977-8849. Electronically Signed: Alvaro Lancaster, at 17:50 EDT Tel , Service support , CC: Audrey Golden DO Lithographic General Worker: Signed CAROTID DUPLEX Observed: 06/15/2018 Status: F Source: [facility]TR[facility] 2:19 PM [facility] REPOSITORY [facility] Cardiovascular Services [address] [place] [address] Carotid Duplex Ultrasound 06/11/18 1013 MR#: [id number] Acct: [id number] Name: MANISH KERN Rep #: [id number] : 1935 82 From: Archie Shipman MD Attending Dr: Audrey Golden DO Status: REG CLI Ordering Dr: Audrey Golden DO Date: 06/11/18 Location: CVS Sex: F [...] Dist ICA 129.0/35.4 cm/sec. Rt. ICA/CCA = 103.0/87.9=1.2. Lt. ICA/CCA = 129.0/85.0=1.5. Prox ECA 191.0/0.0 [...] the left distal internal carotid artery may result in flow velocities overestimating the degree of stenosis. There is heterogeneous, irregular atherosclerotic plaque noted in the left external carotid artery. Antegrade flow is noted in the left vertebral artery. Procedure Carotid Duplex 88799. The exam was diagnostic. Exam performed in department. Interpretation Summary Mild (<50%) stenosis right extracranial internal carotid. However, acoustic shadowing is noted in the proximal right internal carotid artery, which obscures visualization of the arterial lumen. Therefore, the degree of stenosis may exceed that which is estimated by velocity criteria alone, and clinical correlation is advised. Mild (<50%) stenosis left extracranial internal carotid. Flow within the vertebral arteries is antegrade bilaterally. Significant stenosis is noted in the right external carotid artery. Ordering Physician: Audrey Golden Referring Physician: Audrey Golden Performed By: Leanna Scanlon, HAWA, RVT 06/15/18 1418 Date Archie Shipman MD CC: Audrey Golden DO; Audrey Golden DO Date Dictated: 06/11/18 1013 Date Transcribed: 06/15/18 1418 Lithographic General Worker: Signed DEXA BONE DENSITY Observed: 01/01/2018 Status: F Source: [facility] 8:57 AM [facility] REPOSITORY [facility] Imaging Services [address] [place] [address] Dexa Bone Density Study MR#: [id number] Acct: [id number] Name: MANISH KERN Rep #: [id number] : 1935 F 82 From: Arjun Dan MD PCP: Audrey Golden DO Status: REG CLI Study: Dexa Bone Density Study Date of Exam: 01/01/18 Exam# [id number] Ordering Dr: Audrey Golden DO STUDY: DUAL ENERGY X-RAY ABSORPTIOMETRY / [...] Total: g/cm2 (0.724) / T-score (-2.3) / Z- score (-0.2) Left Femoral Neck: g/cm2 (0.579) / T-score (-3.3) / Z- score (-1.1) Right Femur Total: g/cm2 (0.776) / T-score (-1.8) / Z- score (0.2) Right Femoral Neck: g/cm2 (0.703) / T-score (-2.4) / Z-score (-0.2) The T-Scores on the most recent prior examination were: Lumbar Spine (L1-L4): There has been worsening of bone density since the previous examination. Left Femur Total: which represents an improvement of 3.6%. Right Femur Total: which represents an improvement of 0.6%. BD/Dexa Bone Density Study IMPRESSION: [...] National Osteoporosis Foundation http://www.[email or web address] Electronically Signed: Arjun Dan MD at 14:40 EDT Tel [phone], Service support , CC: Audrey Golden DO Lithographic General Worker: Signed ALLERGIES ALLERGIES DATE TYPE / CODE NAME / CODE REACTION SEVERITY SOURCE 12/18/2016 Drug No Known Unknown [facility] Allergy/4160 Allergies/F00 Hospital 16373(SNOMED 2731624(RXNOR Repository CT) M) ENCOUNTERS ENCOUNTERS ADMIT/DISCHARGE ACCOUNT ADMITTING ENCOUNTER LOCATION SOURCE NUMBER CLASS 10/14/2018 [id number] Ambulatory [facility] ing:OPBI Repository 09/30/2018 1471 Ambulatory Building:[facility] OHIP Practices Repository 07/02/2018 [id number] Ambulatory [place] [facility] 8 [facility] ing:CT Repository 06/11/2018 [id number] Ambulatory [facility] ing:CVS Repository 01/01/2018 [id number] Ambulatory [facility] ing:OPBD Repository PAYERS PAYERS ENCOUNTER GUARANTOR PAYER SUBSCRIBER SOURCE 10/14/2018 MANISH A Primary MANISH A [facility] [id number] Insurance:MEDICARE HOUSERDOB: [facility] [id number] Number: Repository [id number]: [phone] [id number] [phone] () Date:2018-06-24 10/14/2018 Secondary MANISH A [place] Insurance:ANTHEMPolic HOUSERDOB: [facility] y Number: [id number] Hospital [id number] Repository Date:3173-12-32[address] [place] [address]YU: 10/14/2018 Tertiary MANISH A [place] Insurance:WPS HOUSERDOB: [facility] LIFEPolicy [id number] Hospital Number: Repository [id number] Date:9533-76-89[address] [place] [address]YW: 10/14/2018 Tertiary NOT GIVENUNK [place] Insurance:SELF PAY [facility] Number: Effective Repository Date:2018-06-24 09/30/2018 MANISH A Primary MANISH A OHIP Practices HOUSERDOB: Insurance:MedicarePol HOUSERDOB: Repository icy Number: [id number] [place] [id number] [facility] [place] Date:7400-30-76RbqlSaint [place], [place] [address]Lkk: (546) Name:EARLY CHILDHOOD WORKER [address] [address]Dkf: [id number], [place] [phone] () (HP)Tel: [phone]: () [phone] 09/30/2018 Secondary MANISH A OH[facility] Practices Insurance:[place] HOUSERDOB: Repository /[facility] Number: [id number] [place] Date:4101-33-21YzfoSaint [place], [place] Name:[address] [address]Kbv: [phone], [place] [phone] () [id number]: 07/02/2018 MANISH A Primary MANISH A [place] [id number] Insurance:MEDICARE HOUSERDOB: Community [place] [address] [facility] BPolicy [id number] Number: Repository [address]Jsi: [phone] [id number] [phone] (HP) Date:2018-06-24 07/02/2018 Secondary MANISH A [place] Insurance:ANTHEMPolic HOUSERDOB: Community y Number: [id number] Hospital [id number] Repository Date:7119-18-80YH [address], [place] [address]ZX: 07/02/2018 Tertiary MANISH A [facility] Insurance:WPS HOUSERDOB: [facility] [id number] Hospital Number: Repository [id number] Date:7880-25-46PP [address] [place] [address]YQ: 07/02/2018 Tertiary NOT GIVENUNK [place] Insurance:SELF PAY [facility] Number: Effective Repository Date:2018-06-24 06/11/2018 Manish A Primary Manish A [facility] [id number] Insurance:MEDICARE HouserDOB: Community [address] [facility] [id number], [place] Number: Repository [id number]: 330 [id number] [phone] () Date:2018-03-13 06/11/2018 Secondary Manish A [place] Insurance:ANTHEMPolic HouserDOB: Community y Number: [id number] Hospital [id number] Repository Date:8824-58-40TS [address] [place] [address]SV: 06/11/2018 Tertiary Manish A [facility] Insurance:WPS HouserDOB: [facility] [id number] Hospital Number: Repository [id number] Date:4706-43-83[address] [address]NE: 06/11/2018 Tertiary NOT GIVENUNK [facility] Insurance:SELF PAY [facility] Number: Effective Repository Date:2018-03-13 01/01/2018 Manish A Primary Manish A [facility] [id number] Insurance:MEDICARE HouserDOB: Community [address] [facility] [id number], [place] Number: Repository [id number]: 330 [id number] [phone] () Date:2017-12-04 01/01/2018 Secondary Manish A [place] Insurance:ANTHEMPolic HouserDOB: Community y Number: [id number] Hospital [id number] Repository Date:5064-47-34JJ [address], [place] [address]TY: 01/01/2018 Tertiary Manish A [facility] Insurance:WPS HouserDOB: [facility] [id number] Hospital Number: Repository [id number] Date:1233-82-69EB [address], [place] [address]CS: 01/01/2018 Tertiary NOT GIVENUNK [place] Insurance:SELF PAY [facility] Number: Effective Repository Date:2017-12-04
== END ==
PROVIDERS: Family Provider Internal Medicine; PCP Internal Medicine; Visit Provider Internal Medicine
DX: Z12.31 Encounter for screening mammogram for malignant neoplasm of breast (principal)
CPT/HCPCS: 77063; 77067

== ENCOUNTER → 2019-01-22 | Outpatient (CLI) | payer MEDICARE, BC, OTHER, SELFPAY | END | disposition home or self-care (01) | PROVIDERS: Family Provider Internal Medicine; PCP Internal Medicine; Referring Provider Internal Medicine; Visit Provider Internal Medicine | DX: I44.7 Left bundle-branch block, unspecified (principal) | CPT/HCPCS: 84484 ==

== ENCOUNTER → 2019-02-06 | Outpatient (CLI) | payer MEDICARE, BC, OTHER, SELFPAY ==
--- NOTE | 2019-02-06 14:04 | STRESSREP ---
Stress Test Report Date: February 06, 2019 Procedure: Pharmacologic stress nuclear imaging study Indications: Left bundle branch block Consent: Per the patient Procedure: The patient underwent pharmacologic (Regadenoson) evaluation with a peak heart rate of 87 beats per minute (62 %predicted maximal heart rate) and a peak blood pressure of 126/78 mmHg. The baseline ECG demonstrated normal sinus rhythm, nonspecific intraventricular conduction delay, possible prior anterior SD. EKG during lexiscan infusion revealed no significant change from baseline. EKG post infusion revealed no significant change from baseline [There were no cardiac dysrhythmias pretest, during pharmacologic infusion, or recovery]. [There was no complaint of chest discomfort during pharmacologic infusion or recovery]. The examination was discontinued secondary to completion of protocol. Impression: 1. Lexiscan stress test test is negative for Lexiscan infusion induced EKG changes of ischemia. 2. Lexiscan stress test test negative for Lexiscan infusion induced chest pain. 3. Results of the nuclear portion of the test is as below Myocardial perfusion imaging study: Technique: The patient was injected with 11.5 millicuries of technetium 99m Cardiolite and subsequently rest SPECT Cardiolite nuclear imaging was obtained in the horizontal long, vertical long, and short axis views. The patient underwent pharmacologic (Regadenoson) evaluation with a peak heart rate of 87 beats per minute (62 % percent predicted maximal heart rate) and a peak blood pressure of 126/78 mmHg. The patient was injected with 32.9 millicuries of technetium 99m Cardiolite and subsequently stress SPECT Cardiolite nuclear imaging was obtained in the horizontal long, vertical long, and short axis views. A gated Cardiolite study at peak stress was obtained. Interpretation: Rest and stress SPECT Cardiolite nuclear imaging status post realignment, normalization, and attenuation correction demonstrate normal myocardial radioisotope uptake on both the rest and stress images. Gated images reveal no significant regional wall motion abnormalities. The reported LVEF is greater than 70 %. Impression: 1. There is no evidence of significant ischemia or infarction 2. Estimated ejection fraction is greater than 70% This note was generated with SPD Control Systemsation software. It may contain incorrect words, spelling, and punctuation that were not noted in checking the note before signing.
--- NOTE | 2019-02-06 14:07 | STRESSREP_ITS ---
Stress Test Report Date: February 06, 2019 Procedure: Pharmacologic stress nuclear imaging study Indications: Left bundle branch block Consent: Per the patient Procedure: The patient underwent pharmacologic (Regadenoson) evaluation with a peak heart rate of 87 beats per minute (62 %predicted maximal heart rate) and a peak blood pressure of 126/78 mmHg. The baseline ECG demonstrated normal sinus rhythm, nonspecific intraventricular conduction delay, possible prior anterior SC. EKG during lexiscan infusion revealed no significant change from baseline. EKG post infusion revealed no significant change from baseline [There were no cardiac dysrhythmias pretest, during pharmacologic infusion, or recovery]. [There was no complaint of chest discomfort during pharmacologic infusion or recovery]. The examination was discontinued secondary to completion of protocol. Impression: 1. Lexiscan stress test test is negative for Lexiscan infusion induced EKG changes of ischemia. 2. Lexiscan stress test test negative for Lexiscan infusion induced chest pain. 3. Results of the nuclear portion of the test is as below Myocardial perfusion imaging study: Technique: The patient was injected with 11.5 millicuries of technetium 99m Cardiolite and subsequently rest SPECT Cardiolite nuclear imaging was obtained in the horizontal long, vertical long, and short axis views. The patient underwent pharmacologic (Regadenoson) evaluation with a peak heart rate of 87 beats per minute (62 % percent predicted maximal heart rate) and a peak blood pressure of 126/78 mmHg. The patient was injected with 32.9 millicuries of technetium 99m Cardiolite and subsequently stress SPECT Cardiolite nuclear imaging was obtained in the horizontal long, vertical long, and short axis views. A gated Cardiolite study at peak stress was obtained. Interpretation: Rest and stress SPECT Cardiolite nuclear imaging status post realignment, normalization, and attenuation correction demonstrate normal myocardial radioisotope uptake on both the rest and stress images. Gated images reveal no significant regional wall motion abnormalities. The reported LVEF is greater than 70 %. Impression: 1. There is no evidence of significant ischemia or infarction 2. Estimated ejection fraction is greater than 70% This note was generated with [employer] software. It may contain incorrect words, spelling, and punctuation that were not noted in checking the note before signing.
== END | disposition home or self-care (01) ==
LOC: CVS 07:00
PROVIDERS: Family Provider Internal Medicine; PCP Internal Medicine; Referring Provider Internal Medicine; Visit Provider Internal Medicine
DX: R94.31 Abnormal electrocardiogram [ECG] [EKG] (principal); I44.7 Left bundle-branch block, unspecified
CPT/HCPCS: 78452; 93017; 93306; A9500; Q9957; A4216; C8929; J2785

== ENCOUNTER → 2019-04-10 | Outpatient (CLI) | payer SELFPAY ==
--- NOTE | 2019-04-10 14:29 | CT_ITS ---
STUDY: CARDIAC CALCIUM SCORING - CT CHEST REASON FOR EXAM: Female, 83 years old. Hyperlipidemia. Left bundle branch block. Hypertension. RADIATION DOSAGE (If Supplied By Facility): CTDIvol = ( 12.19 ) mGy, DLP = ( 170.66 ) mGycm TECHNIQUE: Axial non-enhanced images were acquired through the heart for the sole purpose of measuring coronary artery calcium. Individualized dose optimization techniques were used for this CT. COMPARISON: None. FINDINGS: This portion of the report is being generated solely for the evaluation of noncoronary artery structures which have been assessed on plain another report. There are minimal groundglass densities in the visualized lungs which may represent chronic or acute disease. There is a small pleural-based nodule measuring 3 mm in diameter in the left lung base. The heart is normal in size. Normal pericardium. Coronary artery calcifications are noted. There are nonspecific subcentimeter mediastinal lymph nodes. Normal alfredito. Normal pulmonary arteries. There is atherosclerotic changes of the visualized thoracic aorta without aneurysm. There are mild degenerative changes of the thoracic spine. Small hiatal hernia. Otherwise normal visualized abdomen. CT/Limited Chest CT w/CCTA IMPRESSION: 1. Atherosclerotic changes of coronary arteries and thoracic aorta. 2. Mild groundglass densities in the lungs. Acute versus chronic. 3. Pleural-based left lower lobe nodule. 4. Nonspecific mediastinal lymphadenopathy. 5. Small hiatal hernia. Electronically Signed: Jac Sheridan DO at 19:09 EDT Tel [phone], Service support ,
[2019-04-10 14:39] VITALS: BP 142/58; PULSE 67; RESP 16; O2SAT 96; BMI 28.3
--- NOTE | 2019-04-14 12:29 | CA.SCORE ---
Calcium Scoring Date of Study:: 04/10/19 Coronary Calcium Scoring: High-resolution Computed Tomographic imaging of the chest was performed on [04/10/2019], with particular attention paid to the coronary arteries. Images from the examination were analyzed for the presence and extent of coronary artery calcification , using coronary calcium quantification software. The patient tolerated the procedure well and there were no complications. The results of the coronary calcification analysis are provided below. - Findings Left Main (LM): 352 Left Anterior Descending (LAD): 37.2 Left Circumflex (LCX): 0 Right Coronary Artery (RCA): 78.7 Total Agatston Score: 467.9 Percentile Rankin - Conclusion Calcium Scoring Interpretation: Calcium Score Interpretation 0 No identifiable atherosclerotic plaque. Very low cardiovascular disease risk. <5% chance of presence coronary artery disease A Negative Examination 1-10 Minimal Plaque burden. Significant coronary artery disease very unlikely. 11-100 Mild plaque burden. Likely mild or minimal coronary atherosclerosis. 101-400 Moderate plaque burden Moderate non-obstructive coronary artery disease highly likely. Over 400 Extensive plaque burden. High likelihood of at least one significant coronary stenosis (>50% diameter) The total calcium score (468) is between the 75th and 90th percentile for women over the age of 74. (Exact percentile calculated to be 82%; this means 81% of the population has a lower calcium score and 18% of the population is a higher calcium score than this patient.) Full evaluation of cardiac risk including assessment of all conventional risk factors, and the scores and percentile rankings reported herein should be evaluated in this context.
== END | disposition home or self-care (01) ==
LOC: CT 14:27
PROVIDERS: Family Provider Internal Medicine; PCP Internal Medicine; Referring Provider Internal Medicine; Visit Provider Internal Medicine
DX: E78.5 Hyperlipidemia, unspecified (principal); I44.7 Left bundle-branch block, unspecified
CPT/HCPCS: 75571; 76380

== ENCOUNTER → 2019-04-29 | Outpatient (CLI) | payer MEDICARE, BC, OTHER, SELFPAY ==
[2019-04-10 14:39] VITALS: BMI 28.3
--- NOTE | 2019-04-29 07:46 | CT_ITS ---
STUDY: CT CHEST WITH CONTRAST REASON FOR EXAM: Female, 83 years old. Lung nodule RADIATION DOSAGE (If Supplied By Facility): CTDIvol = ( 9.86 ) mGy, DLP = ( 433.40 ) mGycm TECHNIQUE: Transaxial imaging was performed following intravenous administration of 100mL ml of Isovue 300 contrast material. Coronal and sagittal reformatted images were created. Individualized dose optimization techniques were used for this CT. COMPARISON: 04/10/2019 FINDINGS: There are no pulmonary infiltrates or pleural effusions. There is a 4 mm nodule in the left lung base. There are no additional pulmonary nodules. There is no pneumothorax. The heart and pericardium are within normal limits. Again noted are coronary artery calcifications. There is no thoracic lymphadenopathy. There is no evidence of thoracic aortic aneurysm. Images through the upper abdomen demonstrate no significant abnormality. There are no destructive osseous lesions. CT/Chest WITH Contrast IMPRESSION: Stable 4 mm nodule in the left lung base. No additional pulmonary nodules or masses. A follow-up chest CT in 6-12 months is recommended. No pulmonary infiltrates or pleural effusions. Electronically Signed: Laith Seo, at 17:09 EDT Tel , Service support ,
[2019-04-29 07:56] LABS: CREATININE FINGERSTICK 0.9 mg/dL (0.55-1.02); EGFR FINGERSTICK > 60.0000 mL/min (>60)
== END | disposition home or self-care (01) ==
LOC: CT 07:40
PROVIDERS: Family Provider Internal Medicine; PCP Internal Medicine; Referring Provider Internal Medicine; Visit Provider Internal Medicine
DX: R91.1 Solitary pulmonary nodule (principal)
CPT/HCPCS: 71260; Q9967

== ENCOUNTER → 2019-06-17 09:49 | Outpatient (CLI) | payer MEDICARE, BC, OTHER, SELFPAY ==
[2019-04-10 14:39] VITALS: BMI 28.3
--- NOTE | 2019-06-17 09:51 | CDU_ITS ---
Reason For Study: bilateral carotid stenosis Rt. Velocities/BP Lt. Velocities/BP Prox CCA 72.1/10.8 cm/sec. Prox CCA 81.4/12.5 cm/sec. Mid CCA 63.0/10.8 cm/sec. Mid CCA 78.8/12.5 cm/sec. Dist CCA 69.5/13.4 cm/sec. Dist CCA 81.4/15.1 cm/sec. Prox ICA 83.9/13.9 cm/sec. Prox ICA 67.9/14.0 cm/sec. Mid ICA 65.5/13.9 cm/sec. Mid ICA 86.3/12.0 cm/sec. Dist ICA 96.7/19.8 cm/sec. Dist ICA 93.8/21.6 cm/sec. Rt. ICA/CCA = 1.5. Lt. ICA/CCA = 1.2. Prox ECA 208/6.0 cm/sec. Prox ECA 110/5.8 cm/sec. Rt. Vert. 52.6/9.9 cm/sec. Lt. Vert. 49.6/8.5 cm/sec. Right Extracranial There is intimal thickening but no significant atherosclerotic plaque noted in the right common carotid artery. There is heterogeneous, irregular atherosclerotic plaque noted in the right internal carotid artery. The right internal carotid artery is very tortuous. There is heterogeneous, irregular atherosclerotic plaque noted in the right external carotid artery. Antegrade flow is noted in the right vertebral artery. Left Extracranial There is homogeneous, smooth atherosclerotic plaque noted in the left common carotid artery. There is heterogeneous, irregular atherosclerotic plaque noted in the left internal carotid artery. There is heterogeneous, irregular atherosclerotic plaque noted in the left external carotid artery. Antegrade flow is noted in the left vertebral artery. Procedure Carotid Duplex [id number]. The exam was diagnostic. Exam performed in department. Interpretation Summary Mild (<50%) stenosis right extracranial internal carotid. Mild (<50%) stenosis left extracranial internal carotid. Flow within the vertebral arteries is antegrade bilaterally. Elevated velocities in the right external carotid artery suggest stenosis >50%. Ordering Physician: Audrey Golden Performed By: Lloyd Barclay RVT
== END ==
PROVIDERS: Family Provider Internal Medicine; PCP Internal Medicine; Referring Provider Internal Medicine; Visit Provider Internal Medicine
DX: I65.23 Occlusion and stenosis of bilateral carotid arteries (principal)
CPT/HCPCS: 93880

== ENCOUNTER → 2019-08-25 12:48 | Outpatient (CLI) | payer MEDICARE, BC, OTHER, SELFPAY ==
[2019-04-10 14:39] VITALS: BMI 28.3
[2019-08-25 12:54] LABS: Absolute Neutrophil Count 2.6 X10^3/uL (2.0-7.7); Basophil# 0.03 X10^3/uL; Basophil% 0.7 % (0-1); Eosinophil# 0.11 X10^3/uL; Eosinophils% 2.4 % (0-5); Hematocrit 42.1 % (37-47); Lymphocyte % 30.8 % (19-41); Mean Corp Hgb Conc 33.3 g/dL (32-36); Mean Corpuscular Hgb 31.3 pg (27.0-32.0); Mean Platelet Vol. 10.5 fl (6.2-12.0); Monocyte# 0.43 X10^3/uL; Monocyte% 9.5 % (0-10); NRBC Flagged by Analyzer 0 % (0-5); Neutrophil # 2.57 X10^3/uL (2.7-7.7); Neutrophil % 56.4 % (47-70); Platelet Count 173 K/mm3 (150-450); RBC Distribution Width CV 13.1 % (11.6-14.6); RBC Distribution Width SD 45.4 fl (35.1-43.9); Red Blood Count 4.48 M/mm3 (4.2-5.4); White Blood Count 4.6 K/mm3 (4.4-11.0)
[2019-08-25 13:28] LABS: ALB/GLOB Ratio 1.3 RATIO (0.9-2.4); AST(SGOT) 24 U/L (15-37); Alanine Aminotransfer ALT/SGPT 25 U/L (13-56); Albumin, Serum 3.8 g/dL (3.2-5.0); Alkaline Phosphatase 89 U/L (45-117); Anion Gap 6 (5-15); BUN 12 mg/dL (7-18); BUN/Creat Ratio 14.9 RATIO (10-20); CPK Total, Creatine Kinase 153 U/L (26-192); Calcium,Total 8.8 mg/dL (8.5-10.1); Chloride 105 mmol/L (98-107); EST Glomerular Filtration Rate 72 mL/min (>60); Est Glom Filt Rate - Afr Amer 88 mL/min (>60); Glucose 96 mg/dL (74-106); Potassium 3.7 mmol/L (3.5-5.1); Protein, Total 6.8 g/dL (6.4-8.2); Sodium Level 141 mmol/L (136-145)
[2019-08-26 14:43] LABS: Vitamin B12 659 pg/mL (211-911)
== END ==
PROVIDERS: Family Provider Internal Medicine; PCP Internal Medicine; Referring Provider Internal Medicine; Visit Provider Internal Medicine
DX: M79.89 Other specified soft tissue disorders (principal)
CPT/HCPCS: 80053; 82550; 82607; 85025

== ENCOUNTER → 2019-08-25 13:18 | Outpatient (CLI) | payer MEDICARE, BC, OTHER, SELFPAY ==
[2019-04-10 14:39] VITALS: BMI 28.3
--- NOTE | 2019-08-25 13:21 | VDUE_ITS ---
Reason For Study: RUE swelling Right Proximal Left Proximal Right jugular vein is spontaneous, widely Left subclavian vein is spontaneous, widely patent, phasic, with no intraluminal patent, phasic, with no intraluminal echogenicity noted. echogenicity noted. Right subclavian vein is spontaneous, widely patent, phasic, with no intraluminal echogenicity noted. Right Lower Arm Right radial vein is compressible. Right ulnar vein is compressible. Right Arm Right axillary vein is spontaneous, patent, phasic, competent, compressible and demonstrates augmentation. Right brachial vein is compressible. Right cephalic vein is compressible. Right basilic vein is compressible. Patient Safety Prelim faxed to Dr. Golden @ 1:45 pm @ [phone]. Interpretation Summary Deep veins of the right upper extremity are patent and compressible segmentally. There is no evidence of deep vein thrombosis. The superficial veins of the right upper extremity, the basilic and cephalic veins, are patent and compressible. There is no evidence of right upper extremity superficial thrombophlebitis involving the veins imaged. Ordering Physician: Audrey Golden Referring Physician: Audrey Golden Performed By: Leanna Scanlon, [place], RVT ?
== END ==
PROVIDERS: Family Provider Internal Medicine; PCP Internal Medicine; Referring Provider Internal Medicine; Visit Provider Internal Medicine
DX: M79.89 Other specified soft tissue disorders (principal); M79.10 Myalgia, unspecified site; R20.2 Paresthesia of skin
CPT/HCPCS: 80053; 82550; 82607; 85025; 93971

== ENCOUNTER → 2019-10-15 11:19 | Outpatient (CLI) | payer MEDICARE, BC, OTHER, SELFPAY ==
[2019-04-10 14:39] VITALS: BMI 28.3
--- NOTE | 2019-10-15 11:22 | BI_ITS ---
MAMMOGRAPHY - BILATERAL SCREENING REASON FOR EXAM: Female, 84 years old. Routine annual screening examination. PERTINENT HISTORY: Non-contributory. TECHNIQUE: Digital bilateral breast edita (3D mammographic acquisition) in the CC and MLO projections. 2-D mediolateral oblique (MLO) and craniocaudad (CC) views of both breasts were obtained. CAD: Full Field Digital Mammography with Computer Added Detection was performed. COMPARISON: Comparison is made with prior study dated April 13, 2019 and August 25, 2007. FINDINGS: Breast Composition: There are scattered areas of fibroglandular density. There are no dominant masses or suspicious calcifications. Stable small benign-appearing bilateral axillary lymph nodes. No other significant abnormalities are identified. There has been no significant change since the prior study. BI/SCREEN MAMM (CAD) W/EDITA BILAT IMPRESSION: Stable bilateral screening mammogram. Yearly follow-up mammogram recommended. (A) ASSESSMENT CATEGORY: BIRADS Category 2: Benign. A letter regarding these results will be sent to the patient by the facility within 30 days. Approximately 10% of breast cancers are not detected by mammography. A normal mammogram should not delay biopsy of a clinically suspicious abnormality. [id number] Electronically Signed: Arjun Dan, at 13:12 EST , Service support ,
== END ==
PROVIDERS: Family Provider Internal Medicine; PCP Internal Medicine; Referring Provider Internal Medicine; Visit Provider Internal Medicine
DX: Z12.31 Encounter for screening mammogram for malignant neoplasm of breast (principal)
CPT/HCPCS: 77063; 77067

== ENCOUNTER → 2020-01-26 12:51 | Outpatient (CLI) | payer MEDICARE, BC, OTHER, SELFPAY ==
[2019-04-10 14:39] VITALS: BMI 28.3
--- NOTE | 2020-01-26 12:54 | CT_ITS ---
STUDY: CT CHEST WITHOUT CONTRAST REASON FOR EXAM: Female, 84 years old. LUNG NODULE F/U, HTN RADIATION DOSAGE (If Supplied By Facility): CTDIvol = ( 9.74 ) mGy, DLP = ( 328.69 ) mGycm TECHNIQUE: Transaxial imaging was performed without the administration of intravenous contrast material. Multiplanar coronal and sagittal images were reformatted. Individualized dose optimization techniques were used for this CT. COMPARISON: Comparison is made with prior study dated April 29, 2019. FINDINGS: Focal calcification in the anterior aspect of the right lobe of thyroid. Stable 4 mm noncalcified nodule in the peripheral aspect of the right lower lobe. Stable mild increased markings at the lung bases suggestive of bibasilar scarring. There is no demonstrated pleural abnormality. There are calcifications of the coronary arteries. There is mild cardiac enlargement. There are multiple small lymph nodes within the mediastinum, which are normal in size and morphology most compatible with reactive lymph hyperplasia. Normal hilar regions. Normal unenhanced pulmonary arteries. There is atherosclerotic calcification of the aortic arch with tortuosity and elongation of the aortic arch and descending thoracic aorta. There are multi-level degenerative changes of the thoracic spine. Stable kyphosis. There is no demonstrated abnormality of the visualized upper abdomen. CT/Chest without Contrast IMPRESSION: Stable 4 mm noncalcified nodule in the peripheral aspect of the left lower lobe superimposed on a mild degree of bibasilar scarring. Electronically Signed: Arjun Dan, at 14:33 EDT , Service support ,
== END ==
PROVIDERS: PCP Internal Medicine; Referring Provider Internal Medicine; Visit Provider Internal Medicine
DX: R91.1 Solitary pulmonary nodule (principal)
CPT/HCPCS: 71250

== ENCOUNTER → 2020-03-11 12:55 | Outpatient (CLI) | payer MEDICARE, BC, OTHER, SELFPAY ==
[2019-04-10 14:39] VITALS: BMI 28.3
--- NOTE | 2020-03-11 13:09 | BD_ITS ---
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 COMPARISON: Comparison is made with prior study dated December 28, 2015. FINDINGS: Lumbar Spine (L1-L4): g/cm2 (0.900) / T-score (-2.2) / Z-score (-0.4) Findings are suggestive of osteopenia with a high fracture risk. Left Femur Total: g/cm2 (0.711) / T-score (-2.4) / Z-score (-0.2) Left Femoral Neck: g/cm2 (0.577) / T-score (-3.3) / Z-score (-1.1) Right Femur Total: g/cm2 (0.773) / T-score (-1.9) / Z-score (0.3) Right Femoral Neck: g/cm2 (0.644) / T-score (-2.8) / Z-score (-0.6) The T-Scores on the most recent prior examination were: Lumbar Spine (L1-L4): There has been worsening of bone density since the previous examination. Left Femur Total: which represents a worsening of 0.3%. Right Femur Total: which represents a worsening of 8.4%. BD/Dexa Bone Density Study IMPRESSION: The patient is considered osteoporotic as outlined below according to World [employer] Organization (WHO) criteria with a high fracture risk. There has been worsening of bone density since the previous examination. Reference Information: The T-score is the number of standard deviations above or below the standard which is normal for young adults at their peak bone mineral density. The World Health Organization (WHO) interprets the T-scores as follows: Above -1 Normal bone density Between -1 and -2.5 Osteopenia Equal to / or below -2.5 Osteoporosis As a practical clinical guideline, osteopenia may be graded as follows: Mild -1 through -1.5 Moderate -1.6 through -2.0 Severe -2.1 through -2.4 The Z-score is the number of standard deviations above or below age-matched controls. A Z-score of less than -1.5 would be considered abnormal. References: 1. NIH Osteoporosis and Related Bone Diseases http://www.osteo.org 2. International Society for Clinical Densitometry http://www.iscd.org 3. National Osteoporosis Foundation http://www.nof.org Electronically Signed: Arjun Dan, at 14:57 EDT , Service support ,
== END ==
PROVIDERS: PCP Internal Medicine; Referring Provider Internal Medicine; Visit Provider Internal Medicine
DX: Z78.0 Asymptomatic menopausal state (principal)
CPT/HCPCS: 77080

== ENCOUNTER → 2020-06-16 08:58 | Outpatient (CLI) | payer MEDICARE, BC, OTHER, SELFPAY ==
[2019-04-10 14:39] VITALS: BMI 28.3
--- NOTE | 2020-06-16 09:21 | CDU_ITS ---
Reason For Study: CAROTID STENOSIS Rt. Velocities/BP Lt. Velocities/BP Prox CCA 60/10 cm/sec. Prox CCA 68/12 cm/sec. Mid CCA 66/12 cm/sec. Mid CCA 69/15 cm/sec. Dist CCA 56/13 cm/sec. Dist CCA 81/18 cm/sec. Prox ICA 74/15 cm/sec. Prox ICA 81/20 cm/sec. Mid ICA 92/22 cm/sec. Mid ICA 99/24 cm/sec. Dist ICA 120/24 cm/sec. Dist ICA 92/24 cm/sec. Rt. ICA/CCA = 1.4. Lt. ICA/CCA = 1.1. Prox ECA 204/15 cm/sec. Prox ECA 99/6 cm/sec. Rt. Vert. 37/5 cm/sec. Lt. Vert. 38/0 cm/sec. Right Extracranial There is homogeneous, smooth atherosclerotic plaque noted in the right common carotid artery. There is heterogeneous, irregular atherosclerotic plaque noted in the right internal carotid artery. There is heterogeneous, irregular atherosclerotic plaque noted in the right external carotid artery. Antegrade flow is noted in the right vertebral artery. There is heterogeneous, irregular atherosclerotic plaque noted in the right bulb. Left Extracranial There is homogeneous, smooth atherosclerotic plaque noted in the left common carotid artery. There is heterogeneous, irregular atherosclerotic plaque noted in the left internal carotid artery. There is homogeneous, irregular atherosclerotic plaque noted in the left external carotid artery. Antegrade flow is noted in the left vertebral artery. There is heterogeneous, irregular atherosclerotic plaque noted in the left bulb. Procedure Carotid Duplex [id number]. Exam performed in department. Interpretation Summary Mild (<50%) stenosis right extracranial internal carotid. Mild (<50%) stenosis left extracranial internal carotid. Flow within the vertebral arteries is antegrade bilaterally. Elevated velocities in the right external carotid artery are suggestive of stenosis >50%. Heterogeneous, irregular atherosclerotic plaque is noted in the carotid bulbs bilaterally, which does not appear to be hemodynamically significant. Ordering Physician: Audrey Golden Referring Physician: Audrey Golden Performed By: Isabel Neal, [place], RVT
== END ==
PROVIDERS: PCP Internal Medicine; Referring Provider Internal Medicine; Visit Provider Internal Medicine
DX: I65.23 Occlusion and stenosis of bilateral carotid arteries (principal)
CPT/HCPCS: 93880

== ENCOUNTER → 2020-10-18 10:38 | Outpatient (CLI) | payer MEDICARE, BC, OTHER, SELFPAY ==
[2019-04-10 14:39] VITALS: BMI 28.3
--- NOTE | 2020-10-18 10:44 | BI_ITS ---
MAMMOGRAPHY - BILATERAL SCREENING REASON FOR EXAM: Female, 85 years old. Routine annual screening examination. PERTINENT HISTORY: Non-contributory. TECHNIQUE: Digital bilateral breast edita (3D mammographic acquisition) in the CC and MLO projections. 2-D mediolateral oblique (MLO) and craniocaudad (CC) views of both breasts were obtained. CAD: Full Field Digital Mammography with Computer Added Detection was performed. COMPARISON: Comparison is made with prior examination dated 10/15/2019 and 10/14/2018. FINDINGS: Breast Composition: There are scattered areas of fibroglandular density. There are no dominant masses or suspicious calcifications. Stable asymmetry of breast tissue where more breast tissue is seen in the upper outer quadrant left breast as compared to the right side. Stable benign-appearing bilateral axillary lymph nodes. No other significant abnormalities are identified. There has been no significant change since the prior study. BI/SCRN MAMM (CAD)W/EDITA BILAT IMPRESSION: Stable bilateral screening mammogram. Yearly follow-up mammogram recommended. (A) ASSESSMENT CATEGORY: BIRADS Category 2: Benign. A letter regarding these results will be sent to the patient by the facility within 30 days. Approximately 10% of breast cancers are not detected by mammography. A normal mammogram should not delay biopsy of a clinically suspicious abnormality. [id number] Electronically Signed: Arjun Dan MD at 12:56 EST , Service support ,
== END ==
PROVIDERS: PCP Internal Medicine; Referring Provider Internal Medicine; Visit Provider Internal Medicine
DX: Z12.31 Encounter for screening mammogram for malignant neoplasm of breast (principal)
CPT/HCPCS: 77063; 77067

== ENCOUNTER → 2021-01-24 13:17 | Outpatient (CLI) | payer MEDICARE, BC, OTHER, SELFPAY ==
[2019-04-10 14:39] VITALS: BMI 28.3
--- NOTE | 2021-01-24 13:18 | CT_ITS ---
STUDY: CT CHEST WITHOUT CONTRAST REASON FOR EXAM: Female, 85 years old. Follow-up for lung nodule. RADIATION DOSAGE (If Supplied By Facility): CTDIvol = ( 8.58 ) mGy, DLP = ( 268.08 ) mGycm TECHNIQUE: Transaxial imaging was performed without the administration of intravenous contrast material. Multiplanar coronal and sagittal images were reformatted. Individualized dose optimization techniques were used for this CT. COMPARISON: Comparison is made with prior study dated 01/26/2020 and 04/29/2019. FINDINGS: Stable 4 mm noncalcified pleural-based nodule in the left lower lobe as seen on axial image #56. Stable mild degree of scarring at the lung bases. There is no demonstrated pleural abnormality. There are calcifications of the coronary arteries. There is mild cardiac enlargement. Normal mediastinum. Normal hilar regions. Normal unenhanced pulmonary arteries. There is atherosclerotic calcification of the aortic arch with tortuosity and elongation of the aortic arch and descending thoracic aorta. There are multi-level degenerative changes of the thoracic spine. There is no demonstrated abnormality of the visualized upper abdomen. CT/Chest without Contrast IMPRESSION: Stable examination. Electronically Signed: Arjun Dan MD at 14:43 EDT , Service support ,
== END ==
PROVIDERS: PCP Internal Medicine; Referring Provider Internal Medicine; Visit Provider Internal Medicine
DX: R91.1 Solitary pulmonary nodule (principal)
CPT/HCPCS: 71250

== ENCOUNTER → 2021-07-22 12:23 | Outpatient (CLI) | payer MEDICARE, BC, OTHER, SELFPAY ==
--- NOTE | 2021-07-22 12:27 | CDU_ITS ---
Reason For Study: Bilateral carotid artery stenosis Rt. Velocities/BP Lt. Velocities/BP Prox CCA 68.2/9.5 cm/sec. Prox CCA 101.4/13.5 cm/sec. Mid CCA 81.2/13.4 cm/sec. Mid CCA 91.5/13.5 cm/sec. Dist CCA 79.9/13.4 cm/sec. Dist CCA 80.5/13.5 cm/sec. Prox ICA 86.4/13.3 cm/sec. Prox ICA 114.8/16 cm/sec. Mid ICA 104.7/24.3 cm/sec. Mid ICA 92.5/15.1 cm/sec. Dist ICA 152.1/22.5 cm/sec. Dist ICA 80.2/15.1 cm/sec. Rt. ICA/CCA = 1.90. Lt. ICA/CCA = 1.25. Prox ECA 266.1/7.4 cm/sec. Prox ECA 160.9/5 cm/sec. Rt. Vert. 56.4/10.2 cm/sec. Lt. Vert. 53.1/10.2 cm/sec. Right Extracranial There is homogeneous, smooth atherosclerotic plaque noted in the right common carotid artery. There is heterogeneous, irregular atherosclerotic plaque noted in the right internal carotid artery. There is heterogeneous, irregular atherosclerotic plaque noted in the right external carotid artery. Antegrade flow is noted in the right vertebral artery. Left Extracranial There is homogeneous, smooth atherosclerotic plaque noted in the left common carotid artery. There is heterogeneous, irregular atherosclerotic plaque noted in the left internal carotid artery. There is heterogeneous, irregular atherosclerotic plaque noted in the left external carotid artery. Antegrade flow is noted in the left vertebral artery. Procedure Carotid Duplex [id number]. This is a Carotid Duplex examination using B-mode, color flow and specral Doppler. Exam performed in department. VL/Carotid Duplex Ultrasound Interpretation Summary Mild (<50%) stenosis right extracranial internal carotid. Acoustic shadowing is noted in the proximal right internal carotid artery, which obscures chaudhari-scale visualization of the arterial lumen. Therefore, the degree of stenosis at this site may exceed that which is indicated by velocity criteria alone. In this regard, clinical correlation is advised. Mild (<50%) st enosis left extracranial internal carotid. Flow within the vertebral arteries is antegrade bilaterally. Elevated velocities in the right external carotid artery are suggestive of stenosis >50% . Ordering Physician: Audrey Golden Referring Physician: Audrey Golden Performed By: Kaitlynn Rai RVT
--- NOTE | 2021-07-22 12:28 | CT_ITS ---
STUDY: CT CHEST WITH CONTRAST REASON FOR EXAM: Female, 86 years old. Follow-up for a noncalcified nodule in the left lower lobe. RADIATION DOSAGE (If Supplied By Facility): CTDIvol = ( 8.79 ) mGy, DLP = ( 186.10 ) mGycm TECHNIQUE: Transaxial imaging was performed following intravenous administration of IV 100ML ISOVUE 300. Multiplanar coronal and sagittal images were reformatted. Individualized dose optimization techniques were used for this CT. COMPARISON: Comparison is made with prior examination dated 01/24/2021. FINDINGS: Stable pleural-based 4 mm noncalcified nodule in the left lower lobe as seen on axial image #56. Stable mild degree of emphysematous changes. Stable mild scarring at the lung bases. There is no demonstrated pleural abnormality. There are calcifications of the coronary arteries. Normal mediastinum. Normal hilar regions. Normal enhanced pulmonary arteries. There is atherosclerotic calcification of the aortic arch. There are multi-level degenerative changes of the thoracic spine. Increased kyphosis There is no demonstrated abnormality of the visualized upper abdomen. CT/Chest WITH Contrast IMPRESSION: Stable examination. Electronically Signed: Arjun Dan MD at 14:29 EDT , Service support ,
[2021-07-22 13:15] LABS: CREATININE FINGERSTICK 0.9 mg/dL (0.55-1.02); EGFR FINGERSTICK > 60.0000 mL/min (>60)
== END ==
PROVIDERS: PCP Internal Medicine; Referring Provider Internal Medicine; Visit Provider Internal Medicine
DX: R91.1 Solitary pulmonary nodule (principal); I65.23 Occlusion and stenosis of bilateral carotid arteries
CPT/HCPCS: 71260; 93880; Q9967

== ENCOUNTER 2021-08-11 11:30 | Outpatient (RCR) | payer MEDICARE, BC, OTHER, SELFPAY ==
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
--- NOTE | 2021-08-11 11:59 | HP.PTDCSUM ---
It has been my pleasure to treat MANISH LARRY CONCHA referred by Dr. Audrey Golden DO, with the diagnosis of LUMBAR RADICULOPATHY for a total of 9 visit(s). Discharge Date: Please see the following information for a summary of their discharge status. Subjective: PATIENT REPORTS SHE IS DOING GOOD AND SHE IS READY TO CONTINUE WITH HER EX'S ON HER OWN. STATES SHE THINKS SHE HAS ALL OF HER OUTSIDE WORK DONE NOW. REPORTS HER KNEE IS BETTER TOO. LOW BACK Pain Intensity (Out of 10): 0 LEFT HIP Pain Intensity (Out of 10): 0 LEGS Pain Intensity (Out of 10): 3 % Improvement: 100 Objective/Function: PATIENT WAS SEEN TODAY FOR RE-ASSESSMENT OF PROGRESS TOWARD THE SET PT GOALS AND THE NEED FOR FURTHER PHYSICAL THERAPY VS READINESS FOR DISCHARGE. ALL GOALS HAVE BEEN MET. PATIENT IS INDEP WITH A HEP AND APPROPRIATE FOR DISHCARGE. ABLE TO ADD KAUR GTB MULTIFIDUS PUSH OUTS WITH GOOD TOLERANCE. WRITTEN INSTRUCTION PROVIDED. Goal 1:: DECREASE C/O LOW BACK AND KAUR LE SX'S. Goal Progress: Goal Met Goal 2:: IMPROVE RISING FROM SITTING, STANDING, WALKING, LIFTING, SLEEP AND HOMEMAKING FUNCTION. Goal Progress: Goal Met Goal 3:: INSTRUCT IN PROPHYLAXIS Goal Progress: Goal Met Plan: D/C TO INDEP [facility] AND FOLLOW UP WITH PCP NEEDED. PATIENT IS AGREEABLE. If there are questions or concerns regarding this patient's physical therapy, please feel free to call me at [phone]. Thank you for the referral of this patient. Sincerely, Brigitte Watkins, PT, Cert MDT Balance/Gait/Functional tests - Balance/Special Test Scores Oswestry Low Back Score: 0
== END 2021-08-11 14:28 | disposition home or self-care (01) ==
LOC: PT 11:30
PROVIDERS: PCP Internal Medicine; Referring Provider Internal Medicine; Visit Provider Internal Medicine
DX: M54.16 Radiculopathy, lumbar region (principal)
CPT/HCPCS: 97110; 97112; 97162; 97164; 97530

== ENCOUNTER 2021-11-10 12:22 | Outpatient (CLI) | payer MEDICARE, BC, OTHER, SELFPAY ==
--- NOTE | 2021-11-10 12:26 | BI_ITS ---
MAMMOGRAPHY - BILATERAL SCREENING REASON FOR EXAM: Female, 86 years old. Routine annual screening examination. PERTINENT HISTORY: Non-contributory. TECHNIQUE: Digital bilateral breast edita (3D mammographic acquisition) in the CC and MLO projections. 2-D mediolateral oblique (MLO) and craniocaudad (CC) views of both breasts were obtained. CAD: Full Field Digital Mammography with Computer Added Detection was performed. COMPARISON: Comparison is made with prior examination dated 10/18/2020 and 10/15/2019. FINDINGS: Breast Composition: There are scattered areas of fibroglandular density. There are no dominant masses or suspicious calcifications. Stable asymmetry of breast tissue where more breast tissue is seen in the upper-outer quadrant of the left breast as compared to the right side. Stable benign-appearing bilateral axillary lymph. No other significant abnormalities are identified. There has been no significant change since the prior study. BI/SCRN MAMM (CAD)W/EDITA BILAT IMPRESSION: Stable bilateral screening mammogram. Yearly follow-up mammogram recommended. (A) ASSESSMENT CATEGORY: BIRADS Category 2: Benign. A letter regarding these results will be sent to the patient by the facility within 30 days. Approximately 10% of breast cancers are not detected by mammography. A normal mammogram should not delay biopsy of a clinically suspicious abnormality. [id number] Electronically Signed: Arjun Dan MD at 14:08 EST ,
== END 2021-11-10 23:59 | disposition home or self-care (01) ==
LOC: OPBI 12:23
PROVIDERS: PCP Internal Medicine; Referring Provider Internal Medicine; Visit Provider Internal Medicine
DX: Z12.31 Encounter for screening mammogram for malignant neoplasm of breast (principal)
CPT/HCPCS: 77063; 77067

== ENCOUNTER 2022-01-13 17:59 | Emergency (ER) | payer MEDICARE, BC, OTHER, SELFPAY ==
[2022-01-13 18:00] VITALS: BP 181/69; PULSE 78; RESP 16; TEMP 36.7; O2SAT 98; BMI 27.2
--- NOTE | 2022-01-13 19:56 | EDS_ITS ---
HPI History of Present Illness HPI Narrative: Patient presents with right ankle pain and swelling that has been getting worse throughout the day today. Patient states it came on rather suddenly when she woke up this morning. Patient states it has been constant all day. Patient describes it as aching. Patient states nothing makes it worse and nothing makes it better. Patient denies any paresthesias or weakness. Patient denies any trauma or injury. Patient denies any fevers or chills. Patient denies any redness. Patient states she has a history of osteoporosis and is concerned that it could be a fracture in her ankle. Chief Complaint: Lower Extremity Injury Informant: patient Onset/Context/Timing Onset: Today Context: Sudden Onset Timing: Continuous Quality of Pain: Aching Location: Right ankle Worsened by: Nothing Relieved by: Nothing Associated Symptoms Associated Symptoms: Negative for Parasthesia, Weakness and Loss of Funtion PFSH PFSH Home Medications Telmisartan [Micardis] 40 mg PO DAILY 12/18/16 [History Last Taken Unknown] amlodipine-benazepril [Lotrel 10-40 mg Capsule] 1 capsule PO DAILY 12/18/16 [His tory Last Taken Unknown] cholecalciferol (vitamin D3) 5,000 unit PO DAILY 12/18/16 [History Last Taken Unknown] meloxicam 7.5 mg PO DAILY 12/18/16 [History Last Taken Unknown] omeprazole 20 mg PO DAILY 12/18/16 [History Last Taken Unknown] oxybutynin chloride [Ditropan Xl] 10 mg PO DAILY 12/18/16 [History Last Taken Unknown] pravastatin 20 mg PO DAILY 12/18/16 [History Last Taken Unknown] Allergy/AdvReac Type Severity Reaction Status Date / Time ciprofloxacin [From Cipro] AdvReac Other Verified 01/13/22 18:00 denosumab [From Prolia] AdvReac Pain in Verified 01/13/22 18:00 joints estradiol [From Estrace] AdvReac Other Verified 01/13/22 18:00 olmesartan [From Benicar] AdvReac Other Verified 01/13/22 18:00 Social History Smoking Status: Never smoker ROS ROS ED Constitutional Constitutional ED: Denies chills or fever(s) Eyes Eyes: Denies blurry vision or change in vision ENT ENT ED: Denies rhinorrhea or sore throat Cardiovascular Cardiovascular: Denies chest pain or palpitations Respiratory/Chest Respiratory/Chest: Denies cough or dyspnea Gastrointestinal Gastrointestinal: Denies nausea or vomiting Genitourinary Genitourinary ED: Denies dysuria or hematuria Musculoskeletal Musculoskeletal: Denies back pain or neck pain Integumentary Denies abscess or rash Neurologic Neurologic: Denies headache(s) or weakness Allergic/Immunologic Allergic/Immunologic ED: Denies mouth swelling or urticaria EXAM Physical Exam Const Vital Signs: 01/13/22 18:00 Temperature 98.1 F Temperature Source Temporal Pulse Rate 78 Respiratory Rate 16 Blood Pressure 181/69 H Blood Pressure Mean 106 Pulse Ox 98 Oxygen Delivery Method Room Air Positive well nourished and well developed General Appearance ED: well developed and NAD HEENT Reports moist mucous membranes Neck full ROM Extremity Extremity Narrative: There is tenderness and erythema over the right ankle. There is no erythema or warmth. There is no bony crepitance or step-off. There is no deformity. Range of motion was slightly limited in all motions of the right ankle secondary to pain. Pedal pulses were equal bilaterally. Sensation was intact to light touch in all digits. Capillary refill was less than 2 seconds in all digits. There is no tenderness over the fifth metatarsal. There is no tenderness over the proximal fibula. Neuro oriented x3, CN's II-XII intact bilaterally, moves all extremities and no sensory deficits noted Sensorium / Orientation: alert Motor Exam: strength 5/5 throughout Psych mental status grossly normal MDM MDM MDM Narrative Medical decision making narrative: X-rays of the right ankle were obtained. There are 3 views. On my interpretation, there is no acute fracture. There is soft tissue swelling noted. There are some degenerative changes and osteopenia noted. Radiologist also interpreted the x-rays and agrees. Patient was advised of her findings. Patient was given an Aircast. Patient was instructed to ice and elevate the right ankle. Patient was instructed to follow-up with her primary care physician in 5 to 7 days. Patient understood and was agreeable with the plan. All questions were answered. Radiography Diagnostic Testing: Clinical Impression(s) from Imaging Studies Ankle X-Ray 01/13/22 20:21 IMPRESSION: Soft tissue swelling. No definite evidence of fracture. Please note that the degree of osteopenia may limit sensitivity for nondisplaced acute fracture. Follow-up radiographs may be helpful to reassess as clinically indicated. Electronically Signed: Isabel Duckworth MD at 20:47 EDT , Discharge Plan Triage Chief Complaint: Lower Extremity Injury ED Provider: Sunil Johnston Dx/Rx/DC Orders Clinical Impression: Ankle pain, right, Osteoporosis Instructions: ED Arthralgia Prescriptions: No Action oxybutynin chloride [Ditropan XL] 10 MG Tab.Er.24 10 mg PO DAILY RF: 0 pravastatin 40 MG tablet 20 mg PO DAILY RF: 0 meloxicam 7.5 MG tablet 7.5 mg PO DAILY RF: 0 omeprazole 20 MG capsule 20 mg PO DAILY RF: 0 cholecalciferol (vitamin D3) 5,000 UNIT capsule 5,000 unit PO DAILY RF: 0 amlodipine-benazepril [Lotrel] 1 EACH capsule 1 capsule PO DAILY RF: 0 Telmisartan [Micardis] 40 MG tablet 40 mg PO DAILY RF: 0 Primary Care Provider: Audrey Golden Referrals: Audrey Golden DO [Primary Care Provider] - 5-7 Days Disposition Disposition: Home, Self Care Discharge Date/Time: 01/13/22 22:23
--- NOTE | 2022-01-13 20:21 | RAD_ITS ---
STUDY: X-RAY - RIGHT ANKLE REASON FOR EXAM: Female, 86 years old. Injury/Pain TECHNIQUE: 3 view(s) of the ankle. COMPARISON: None. FINDINGS: BONES: Bones are osteopenic. No definite fracture demonstrated. Small density adjacent to the distal tibia medial malleolus appears fairly corticated likely an ossicle or related to prior trauma. Small calcaneal plantar spur. JOINTS: No dislocation. SOFT TISSUES: Soft tissue swelling overlying the lateral malleolus and anteriorly. RAD/Ankle min 3 Views IMPRESSION: Soft tissue swelling. No definite evidence of fracture. Please note that the degree of osteopenia may limit sensitivity for nondisplaced acute fracture. Follow-up radiographs may be helpful to reassess as clinically indicated. Electronically Signed: Isabel Duckworth MD at 20:47 EDT ,
== END 2022-01-13 22:23 | disposition home or self-care (01) ==
PROVIDERS: Emergency Provider Emergency Medicine; PCP Internal Medicine; Visit Provider Emergency Medicine
DX: M25.571 Pain in right ankle and joints of right foot (principal); M81.0 Age-related osteoporosis without current pathological fracture; M79.89 Other specified soft tissue disorders
CPT/HCPCS: 73610; 99283

== ENCOUNTER → 2022-01-16 | Outpatient (CLI) | payer MEDICARE, BC, OTHER, SELFPAY ==
[2022-01-16 11:42] LABS: D-Dimer Quantitative (DVT/PE) 0.74 FEU/ug/m (0.27-0.49)
== END | disposition home or self-care (01) ==
LOC: LABSPEC 10:48
PROVIDERS: PCP Internal Medicine; Visit Provider Internal Medicine
CPT/HCPCS: 85379

== ENCOUNTER → 2022-01-16 | Outpatient (CLI) | payer MEDICARE, BC, OTHER, SELFPAY ==
--- NOTE | 2022-01-16 14:46 | VDLE_ITS ---
Reason For Study: Elevated D-dimer RIGHT GSV is normal. CFV is compressible, spontaneous, phasic, competent and demonstrates normal augmentation. FV is compressible, spontaneous, phasic, competent and demonstrates normal augmentation. POP V is compressible, spontaneous, phasic, competent and demonstrates normal augmentation. T/P Trunk is compressible. PTV is compressible. RT PerV is compressible. Acute deep vein thrombosis is noted in the right Soleus vein. Procedure This is a venous duplex using B-mode, color flow and spectral Doppler. Exam performed in department. A preliminary report was called and/or faxed to [facility]. VL/Venous Duplex US, Unilateral Interpretation Summary Acute deep vein thrombosis is noted in the right soleus vein. The remainder of the right lower extremity deep venous system is patent and compressible. Valvular competence ap pears intact within the proximal deep venous system on the right . The right great saphenous vein a ppears patent and compressible segmentally. Ordering Physician: Audrey Golden Referring Physician: Audrey Golden Performed By: Kaitlynn Rai RVT
== END | disposition home or self-care (01) ==
PROVIDERS: PCP Internal Medicine; Referring Provider Internal Medicine; Visit Provider Internal Medicine
DX: M25.473 Effusion, unspecified ankle (principal); R79.89 Other specified abnormal findings of blood chemistry; M79.89 Other specified soft tissue disorders
CPT/HCPCS: 85379; 93971

== ENCOUNTER → 2022-02-21 | Outpatient (CLI) | payer MEDICARE, BC, OTHER, SELFPAY | END | disposition home or self-care (01) | LOC: LABSPEC 16:52 | PROVIDERS: PCP Internal Medicine; Visit Provider Urology | DX: N32.81 Overactive bladder (principal) | CPT/HCPCS: 87086; 87088; 87186 ==

== ENCOUNTER → 2022-04-19 | Outpatient (CLI) | payer MEDICARE, BC, OTHER, SELFPAY ==
--- NOTE | 2022-04-19 15:19 | MRI_ITS ---
STUDY: MRI BRAIN WITH AND WITHOUT CONTRAST REASON FOR EXAM: Female, 86 years old. ARM PARESTHESIA, RIGHT, right posterior head pain TECHNIQUE: Standardized multiplanar fat and water weighted pulse sequences were obtained. IV Yes YES was administered for the contrast portion of the examination. COMPARISON: None. FINDINGS: There is mild cerebral volume loss with widening of the extra-axial spaces and ventricular dilatation. There are a limited number of small white matter hyperintensities, distributed throughout the deep white matter tracts of the cerebral hemispheres, consistent with mild chronic white matter ischemic changes. There is no evidence for recent intracranial ischemia or other cause of cytotoxic edema on diffusion weighted imaging (DWI). There is a tiny left postcentral gyrus cavernoma. Normal bilateral basal ganglia. Normal thalami. There is no extra-axial fluid accumulation. Normal flow voids within the major intracranial circulation suggesting patency by spin echo criteria. Normal venous enhancement. There is no enhancing intra-axial or extra-axial abnormality. Normal sella turcica, pituitary gland, infundibular stalk, optic chiasm and hypothalamus. Normal tectal plate and pineal gland. Normal midbrain, quinton and medulla. Normal cerebellum. Normal basal cisterns. Normal bilateral temporal bones. Normal bilateral internal auditory canals. Small bilateral mastoid effusions. There are bilateral ocular lens implants with otherwise normal intraorbital contents. Normal visualized paranasal sinuses. Normal calvarium and skull base. Normal visualized soft tissue structures. Normal visualized upper cervical spine. MRI/Brain W/WO Contrast IMPRESSION: Small bilateral mastoid effusions. No other acute abnormal finding. Senescent changes. Electronically Signed: Tushar Barone MD at 6:17 EDT ,
[2022-04-19 16:05] LABS: CREATININE FINGERSTICK < 0.9 mg/dL (0.55-1.02); EGFR FINGERSTICK > 60.0000 mL/min (>60)
== END | disposition home or self-care (01) ==
LOC: MRI 15:13
PROVIDERS: PCP Internal Medicine; Visit Provider Internal Medicine
DX: R20.2 Paresthesia of skin (principal); I82.409 Acute embolism and thrombosis of unspecified deep veins of unspecified lower extremity
CPT/HCPCS: 70553; A9575

== ENCOUNTER → 2022-05-18 | Outpatient (CLI) | payer MEDICARE, BC, OTHER, SELFPAY ==
--- NOTE | 2022-05-18 09:31 | BD_ITS ---
STUDY: DUAL ENERGY X-RAY ABSORPTIOMETRY / DXA REASON FOR EXAM: Female, 86 years old. M810. Patient is postmenopausal. TECHNIQUE: Bone Mineral Density (BMD) measurements of lumbar spine and bilateral hips were obtained. COMPARISON: Comparison is made with prior study dated 03/11/2020. FINDINGS: Lumbar Spine (L1-L4): g/cm2 (0.775) / T-score (-1.9) / Z-score (0.8) Findings are suggestive of osteopenia with a moderate fracture risk. Left Femur Total: g/cm2 (0.633) / T-score (-2.5) / Z-score (-0.2) Left Femoral Neck: g/cm2 (0.431) / T-score (-3.8) / Z-score (-1.3) Right Femur Total: g/cm2 (0.712) / T-score (-1.9) / Z-score (0.4) Right Femoral Neck: g/cm2 (0.531) / T-score (-2.9) / Z-score (-0.3) The T-Scores on the most recent prior examination were: Lumbar Spine (L1-L4): There has been improvement of bone density since the previous examination. Left Femur Total: which represents a worsening of 3%. Right Femur Total: which represents a worsening of 0.2%. BD/Dexa Bone Density Study IMPRESSION: The patient is considered osteoporotic as outlined below according to World [employer] Organization (WHO) criteria with a high fracture risk. There has been worsening of bone density since the previous examination. Reference Information: The T-score is the number of standard deviations above or below the standard which is normal for young adults at their peak bone mineral density. The World Health Organization (WHO) interprets the T-scores as follows: Above -1 Normal bone density Between -1 and -2.5 Osteopenia Equal to / or below -2.5 Osteoporosis As a practical clinical guideline, osteopenia may be graded as follows: Mild -1 through -1.5 Moderate -1.6 through -2.0 Severe -2.1 through -2.4 The Z-score is the number of standard deviations above or below age-matched controls. A Z-score of less than -1.5 would be considered abnormal. References: 1. NIH Osteoporosis and Related Bone Diseases www osteo.org 2. International Society for Clinical Densitometry www iscd.org 3. National Osteoporosis Foundation www nof.org Electronically Signed: Arjun Dan MD at 13:44 EDT ,
--- NOTE | 2022-05-18 10:04 | VDLE_ITS ---
Reason For Study: DVT RIGHT GSV is normal. CFV is compressible, spontaneous, phasic, competent and demonstrates normal augmentation. FV is compressible, spontaneous, phasic, competent and demonstrates normal augmentation. POP V is compressible, spontaneous, phasic, competent and demonstrates normal augmentation. T/P Trunk is compressible. PTV is compressible. RT PerV is compressible. Soleus vein is partially compressible with bright intraluminal echoes consistent with chronic DVT. Procedure This is a venous duplex using B-mode, color flow and spectral Doppler. Exam performed in department. Compared to 01/16/22. A preliminary report was called and/or faxed to [facility]. VL/Venous Duplex US, Unilateral Interpretation Summary Chronic deep venous thrombosis right soleus vein Patent and compressible right great saphenous vein Slight improvement is noted in the soleus vein from the previous examination of January 16, 2022 Ordering Physician: Audrey Golden Referring Physician: Audrey Golden D.O. Performed By: Kaitlynn Rai RVT
== END | disposition home or self-care (01) ==
LOC: CVS 09:29
PROVIDERS: PCP Internal Medicine; Visit Provider Internal Medicine
DX: M79.661 Pain in right lower leg (principal); I82.409 Acute embolism and thrombosis of unspecified deep veins of unspecified lower extremity; M81.0 Age-related osteoporosis without current pathological fracture
CPT/HCPCS: 77080; 93971

== ENCOUNTER → 2022-05-31 | Outpatient (CLI) | payer MEDICARE, BC, OTHER, SELFPAY ==
--- NOTE | 2022-05-31 09:59 | NEURO ---
NCS and/or EMG Patient Report Ordering Doctor: Audrey Golden DATE OF SERVICE: 05/31/22 Lizzy presents for electrodiagnostic testing of the right upper limb. She has numbness and tingling in the hand. Electrodiagnostic Findings: Right median motor nerve demonstrates prolonged distal latency with normal amplitude and reduced conduction velocity. Normal right ulnar motor response. Prolonged right median F-wave. Prolonged median sensory latency at the wrist. Needle EMG testing shows no evidence of denervation in any muscles tested. Motor unit action potentials of normal amplitude and duration Electrodiagnostic impression: This is an abnormal study in the right upper limb. 1. Electrodiagnostic findings demonstrate right-sided median mononeuropathy. This is consistent with a moderate right carpal tunnel syndrome.
== END | disposition home or self-care (01) ==
LOC: PSN 08:23
PROVIDERS: PCP Internal Medicine; Visit Provider Internal Medicine
DX: R20.2 Paresthesia of skin (principal)
CPT/HCPCS: 95886; 95910

== ENCOUNTER → 2022-08-10 | Outpatient (CLI) | payer MEDICARE, BC, OTHER, SELFPAY ==
--- NOTE | 2022-08-10 12:43 | CDU_ITS ---
Reason For Study: carotid stenosis Rt. Velocities/BP Lt. Velocities/BP Prox CCA 77.8/9.7 cm/sec. Prox CCA 75.1/10.2 cm/sec. Mid CCA 74.9/12.6 cm/sec. Mid CCA 77.3/13.5 cm/sec. Dist CCA 70.2/11.6 cm/sec. Dist CCA 80.6/12.4 cm/sec. Prox ICA 82.6/12.6 cm/sec. Prox ICA 91.6/14.6 cm/sec. Mid ICA 97.4/22.5 cm/sec. Mid ICA 118.2/21.2 cm/sec. Dist ICA 149.9/23.0 cm/sec. Dist ICA 117.0/28.6 cm/sec. Rt. ICA/CCA = 2.0. Lt. ICA/CCA = 1.5. Prox ECA 249.6/3.4 cm/sec. Prox ECA 121.1 cm/sec. Rt. Vert. 58.6/8.0 cm/sec. Lt. Vert. 59.3/9.0 cm/sec. Right Extracranial There is homogeneous, smooth atherosclerotic plaque noted in the right common carotid artery. There is heterogeneous, irregular atherosclerotic plaque noted in the right internal carotid artery. There is heterogeneous, irregular atherosclerotic plaque noted in the right external carotid artery. Antegrade flow is noted in the right vertebral artery. Left Extracranial There is homogeneous, smooth atherosclerotic plaque noted in the left common carotid artery. There is heterogeneous, irregular atherosclerotic plaque noted in the left internal carotid artery. There is heterogeneous, irregular atherosclerotic plaque noted in the left external carotid artery. Antegrade flow is noted in the left vertebral artery. Procedure Carotid Duplex [id number]. This is a Carotid Duplex examination using B-mode, color flow and specral Doppler. The exam was diagnostic. Exam performed in department. VL/Carotid Duplex Ultrasound Interpretation Summary Mild (<50%) stenosis right extracranial internal carotid. Acoustic shadowing is noted in the proximal right internal carotid artery, which obscures chaudhari-scale visualization of the arterial lumen. Therefore, the degree of stenosis at this site may exceed that which is indicated by velocity criteria alone. In this regard, clinical correlation is advised. Mildly elevate d velocities in the distal right internal carotid artery are likely due to tortuosity. Mild (<50%) stenosis left extracranial internal carotid. Flow within the vertebral arteries is antegrade bilaterally. Elevated velocities in the right external carotid artery are suggestive of stenosis >50% . Ordering Physician: Audrey Golden Referring Physician: Audrey Golden Performed By: Lloyd Barclay RVT
== END | disposition home or self-care (01) ==
LOC: CVS 12:41
PROVIDERS: PCP Internal Medicine; Referring Provider Internal Medicine; Visit Provider Internal Medicine
DX: I65.23 Occlusion and stenosis of bilateral carotid arteries (principal)
CPT/HCPCS: 93880

== ENCOUNTER → 2022-11-27 | Outpatient (CLI) | payer MEDICARE, BC, OTHER, SELFPAY ==
--- NOTE | 2022-11-27 15:41 | BI_ITS ---
MAMMOGRAPHY - BILATERAL SCREENING REASON FOR EXAM: Female, 87 years old. Routine annual screening examination. PERTINENT HISTORY: Non-contributory. TECHNIQUE: Digital bilateral breast edita (3D mammographic acquisition) in the CC and MLO projections. 2-D mediolateral oblique (MLO) and craniocaudad (CC) views of both breasts were obtained. CAD: Full Field Digital Mammography with Computer Added Detection was performed. COMPARISON: Comparison is made with prior study dated November 10, 2021 and October 18, 2020. FINDINGS: Breast Composition: There are scattered areas of fibroglandular density. There are no dominant masses or suspicious calcifications. Stable mild degree of asymmetry of breast tissue where more breast tissue is seen in the upper-outer quadrant of the left breast as compared to the right side. Stable small benign-appearing bilateral axillary lymph nodes. No other significant abnormalities are identified. There has been no significant change since the prior study. BI/SCRN MAMM (CAD)W/EDITA BILAT IMPRESSION: Stable bilateral screening mammogram. Yearly follow-up mammogram recommended. (A) ASSESSMENT CATEGORY: BIRADS Category 2: Benign. A letter regarding these results will be sent to the patient by the facility within 30 days. Approximately 10% of breast cancers are not detected by mammography. A normal mammogram should not delay biopsy of a clinically suspicious abnormality. [id number] Electronically Signed: Arjun Dan MD at 8:24 EST ,
--- NOTE | 2022-11-27 17:21 | CT_ITS ---
STUDY: CTA NECK WITH CONTRAST REASON FOR EXAM: Female, 87 years old. Screening RADIATION DOSAGE (If Supplied By Facility): CTDIvol = ( 20.10 ) mGy, DLP = ( 407.04 ) mGycm TECHNIQUE: CT angiography with multi-detector data acquisition was performed from the aortic arch to the skull base following intravenous administration of IV 100mL Isovue-370. MIP images were reconstructed from the axial data set. Post-processing of the angiographic images was performed, with multiplanar reformation and 3D reconstruction. Individualized dose optimization techniques were used for this CT. COMPARISON: Comparison is made with prior study dated July 02, 2018. FINDINGS: AORTIC ARCH: There is atherosclerotic calcific plaque formation of the aortic arch and great vessels arising from the aortic arch, without a hemodynamically significant stenosis. There is a normal origin of the brachiocephalic, left common carotid, and left subclavian arteries. RIGHT CAROTID ARTERIES: Normal right common carotid artery (CCA). Normal right common carotid bulb. There is moderate atherosclerotic plaque formation of the origin of the right internal carotid artery with an estimated stenosis of 50-69% stenosis. Normal visualized cervical portion of the right internal carotid artery. Normal origin of the right external carotid artery (ECA). LEFT CAROTID ARTERIES: Normal left common carotid artery (CCA). Normal left common carotid bulb. There is mild atherosclerotic plaque formation of the origin of the left internal carotid artery with less than 50% cross sectional diameter stenosis. Normal visualized cervical portion of the left internal carotid artery. Normal origin of the left external carotid artery (ECA). VERTEBRAL ARTERIES: Normal bilateral vertebral arteries. CT/CTA Neck W/WO Contrast IMPRESSION: Calcific plaque at the origin of the right internal carotid artery causing between 50 and 69% stenosis. Minimal calcific plaque at the origin of the left internal carotid artery. Electronically Signed: Arjun Dan MD at 9:29 EST ,
[2022-11-27 17:50] LABS: CREATININE FINGERSTICK 1.1 mg/dL (0.55-1.02)
== END | disposition home or self-care (01) ==
LOC: OPBI 15:37
PROVIDERS: PCP Internal Medicine; Referring Provider Internal Medicine; Visit Provider Internal Medicine
DX: Z12.31 Encounter for screening mammogram for malignant neoplasm of breast (principal)
CPT/HCPCS: 70498; 77063; 77067; Q9967

== ENCOUNTER → 2023-01-22 | Outpatient (CLI) | payer MEDICARE, BC, OTHER, SELFPAY ==
--- NOTE | 2023-01-22 11:20 | STRESSREP_ITS ---
Stress Test Report Pharmacologic myocardial perfusion stress test. 87-year-old lady with a history of chest pain Resting EKG demonstrates sinus rhythm with a rate of 61 bpm. Left bundle branch block pattern is noted. Resting blood pressure is 160/72 mmHg. 0.4 mg of regadenoson was infused per usual protocol followed by rapid intravenous saline flush injection. Continuous EKG monitoring was performed. The maximum heart rate was 76 bpm which was 56% of max impacted heart rate the maximum workload was 1 metabolic equivalent. At rest there were no ST or T wave changes noted to suggest ischemia and at peak infusion nonspecific ST changes were noted which did not meet the criteria for ischemia. No clinical angina is noted. The final blood pressure was 150/62 mmHg. Myocardial perfusion protocol. 11.9 mCi of technetium 99m sestamibi was injected at rest. 0.4 mg of regadenoson was infused per usual protocol. At peak infusion 34.7 mCi of techne tium 99m sestamibi was injected stress images were obtained stress and rest images were reconstructed and compared in the short axis vertical long and horizontal long axis. Gated images were also obtained. Perfusion SPECT analysis: Review of the stress images demonstrate normal uptake of tracer noted in all areas of the myocardium mild reduction is noted in the anterior septal wall consistent with a left bundle branch block pattern.. The resting images similar demonstrated normal uptake of tracer noted in all areas of the myocardium except for the anteroseptal wall. No areas of reversibility are noted to suggest ischemia and no previous infarct is noted. Gated SPECT analysis: The gated ejection fraction is 58%. Conclusion: Normal pharmacologic myocardial perfusion stress test. Preserved ejection fraction.
== END | disposition home or self-care (01) ==
LOC: CVS 06:19
PROVIDERS: PCP Internal Medicine; Referring Provider Internal Medicine; Visit Provider Internal Medicine
DX: I25.10 Atherosclerotic heart disease of native coronary artery without angina pectoris (principal)
CPT/HCPCS: 78452; 93017; A9500; A4216; J2785

== ENCOUNTER → 2023-01-25 | Outpatient (CLI) | payer MEDICARE, BC, OTHER, SELFPAY ==
--- NOTE | 2023-01-25 13:38 | CT_ITS ---
STUDY: CT ABDOMEN AND PELVIS WITH CONTRAST REASON FOR EXAM: Female, 87 years old. Abnormal weight loss. 25 pound weight loss in 6 months. RADIATION DOSAGE (If Supplied By Facility): CTDIvol = ( 12.53 ) mGy, DLP = ( 565.35 ) mGycm TECHNIQUE: Transaxial images were obtained from the dome of the diaphragm to the symphysis pubis without oral contrast. Oral and amp; IV Readi-CAT and amp; 100mL Isovue-300 was administered. Sagittal and coronal images were reconstructed. Individualized dose optimization techniques were used for this CT. COMPARISON: None. FINDINGS: The visualized lung bases are unremarkable. Coronary artery calcification. Normal liver. Normal gallbladder and extrahepatic biliary system. Normal spleen. Normal pancreas. Normal bilateral adrenal glands. Normal right kidney. Normal left kidney. Normal visualized stomach. Normal small intestine. Normal colon. The appendix is visualized and appears normal. There is diffuse atherosclerotic calcification of the abdominal aorta and its major visceral branches, without a demonstrated aneurysm. Normal inferior vena cava. Normal retroperitoneum. Normal urinary bladder. Enlarged fibroid uterus. Multiple pelvic phleboliths. Normal abdominal wall. There are degenerative changes of the visualized lumbar spine. Mild levoscoliosis. CT/Abdomen/Pelvis WITH Contrast IMPRESSION: Enlarged fibroid uterus. Electronically Signed: Arjun Dan MD at 8:46 EDT ,
== END | disposition home or self-care (01) ==
LOC: CT 13:37
PROVIDERS: PCP Internal Medicine; Referring Provider Internal Medicine; Visit Provider Internal Medicine
DX: R63.4 Abnormal weight loss (principal)
CPT/HCPCS: 74177; Q9967

== ENCOUNTER → 2023-04-30 | Outpatient (CLI) | payer MEDICARE, BC, OTHER, SELFPAY ==
--- NOTE | 2023-04-30 13:06 | VDLE_ITS ---
Reason For Study: Chronic DVT RIGHT LEFT GSV is normal. CFV is compressible, spontaneous, phasic, CFV is compressible, spontaneous, phasic, competent, and demonstrates normal competent and demonstrates normal augmentation. augmentation. FV is compressible, spontaneous, phasic, competent and demonstrates normal augmentation. POP V is compressible, spontaneous, phasic, competent and demonstrates normal augmentation. T/P Trunk is compressible. PTV is compressible. RT PerV is compressible. Soleus vein is partially compressible with bright intraluminal echoes consistent with chronic DVT. Procedure This is a venous duplex using B-mode, color flow and spectral Doppler. Exam performed in department. Compared to 05/18/2022. VL/Venous Duplex US, Unilateral Interpretation Summary Chronic DVT right soleus vein. Ordering Physician: Max Bustillos Referring Physician: Audrey Golden D.O. Performed By: Kaitlynn Rai RVT
== END | disposition home or self-care (01) ==
LOC: CVS 13:04
PROVIDERS: PCP Internal Medicine; Referring Provider Surgery Vascular Surgery; Visit Provider Surgery Vascular Surgery
DX: I82.561 Chronic embolism and thrombosis of right calf muscular vein (principal)
CPT/HCPCS: 93971

== ENCOUNTER → 2023-05-19 | Outpatient (CLI) | payer MEDICARE, BC, OTHER, SELFPAY ==
--- NOTE | 2023-05-19 09:44 | CT_ITS ---
INDICATION: lung nodule EXAMINATION: CT CHEST WITHOUT CONTRAST - CT Chest W/O Contrast Injection TECHNIQUE: Helically acquired images were obtained of the chest. A radiation dose optimization technique was used for this scan. IV Contrast dosage and agent: None. RADIATION DOSAGE (If Supplied By Facility): CTDIvol = ( 6.83 ) mGy, DLP = ( 233.83 ) mGycm COMPARISON: July 22, 2021 FINDINGS: LUNGS, PLEURA AND LARGE AIRWAYS: There are two 3 to 4 mm peripheral nodules in the left lower lobe laterally similar to previous study, image 66 series 4. No pleural effusion or thickening. No pneumothorax. THYROID: No thyroid lesions. HEART AND PERICARDIUM: Heart size is normal. No pericardial effusion. CORONARY ARTERIES: Coronary artery calcifications are noted VESSELS: Calcified aorta. MEDIASTINUM AND DREW: No mediastinal or hilar adenopathy. Esophagus is unremarkable. No hiatal hernia. UPPER ABDOMEN: No acute pathology. BONES: No suspicious lytic or blastic abnormality. CT/Chest without Contrast IMPRESSION: Relatively stable left lower lobe peripheral nodules. There likely are granulomatous in nature. Electronically Signed: Erik Hay DO at 21:47 EDT ,
== END | disposition home or self-care (01) ==
LOC: CT 09:42
PROVIDERS: PCP Internal Medicine; Referring Provider Internal Medicine; Visit Provider Internal Medicine
DX: R91.1 Solitary pulmonary nodule (principal)
CPT/HCPCS: 71250

== ENCOUNTER → 2023-09-19 | Outpatient (CLI) | payer MEDICARE, BC, OTHER, SELFPAY ==
--- NOTE | 2023-09-19 12:46 | VDLE_ITS ---
Reason For Study: RLE Pain RIGHT LEFT GSV is normal. CFV is compressible, spontaneous, phasic, CFV is compressible, spontaneous, phasic, competent, and demonstrates normal competent and demonstrates normal augmentation. augmentation. FV is compressible, spontaneous, phasic, competent and demonstrates normal augmentation. POP V is compressible, spontaneous, phasic, competent and demonstrates normal augmentation. T/P Trunk is compressible. PTV is compressible. RT PerV is compressible. Soleus vein is partially compressible with bright web-like intraluminal echoes. Finding is consistent with chronic DVT. Procedure This is a venous duplex using B-mode, color flow and spectral Doppler. Exam performed in department. The exam was diagnostic. A preliminary report was called and/or faxed to [facility] / Dr. Noel. VL/Venous Duplex US, Unilateral Interpretation Summary Chronic venous changes are noted in the right soleus vein. The remainder of the right lower extremity deep venous system is patent and compressible. Valvular competence ap pears intact within the proximal deep venous system on the right . The right great saphenous vein a ppears patent and compressible segmentally. The left common femoral vein is patent and compressib le . Ordering Physician: Laith Noel Referring Physician: Audrey Golden Performed By: Yakov Solis RVT
== END | disposition home or self-care (01) ==
PROVIDERS: PCP Internal Medicine; Referring Provider Specialist; Visit Provider Specialist
DX: M79.661 Pain in right lower leg (principal)
CPT/HCPCS: 93971

== ENCOUNTER → 2023-10-19 | Outpatient (CLI) | payer MEDICARE, BC, OTHER, SELFPAY ==
--- NOTE | 2023-10-19 09:56 | CDU_ITS ---
Reason For Study: Bilateral Carotid Stenosis Rt. Velocities/BP Lt. Velocities/BP Prox CCA 67.0/6.1 cm/sec. Prox CCA 72.6/10.5 cm/sec. Mid CCA 84.2/11.8 cm/sec. Mid CCA 88.8/13.9 cm/sec. Dist CCA 69.5/10.6 cm/sec. Dist CCA 92.4/12.1 cm/sec. Prox ICA 96.7/13.7 cm/sec. Prox ICA 107.0/15.7 cm/sec. Mid ICA 99.3/18.9 cm/sec. Mid ICA 88.5/18.5 cm/sec. Dist ICA 84.2/12.4 cm/sec. Dist ICA 100.8/18.9 cm/sec. Rt. ICA/CCA = 1.2. Lt. ICA/CCA = 1.2. Prox ECA 264.0/9.0 cm/sec. Prox ECA 134.4/13.9 cm/sec. Rt. Vert. 86.7/13.0 cm/sec. Lt. Vert. 49.1/8.7 cm/sec. Right Extracranial There is homogeneous, smooth atherosclerotic plaque noted in the right common carotid artery. There is heterogeneous, irregular atherosclerotic plaque noted in the right internal carotid artery. There is heterogeneous, irregular atherosclerotic plaque noted in the right external carotid artery. Antegrade flow is noted in the right vertebral artery. Left Extracranial There is homogeneous, smooth atherosclerotic plaque noted in the left common carotid artery. There is heterogeneous, irregular atherosclerotic plaque noted in the left internal carotid artery. There is heterogeneous, irregular atherosclerotic plaque noted in the left external carotid artery. Antegrade flow is noted in the left vertebral artery. Procedure Carotid Duplex [id number]. This is a Carotid Duplex examination using B-mode, color flow and specral Doppler. The exam was diagnostic. Exam performed in department. VL/Carotid Duplex Ultrasound Interpretation Summary Mild (<50%) stenosis right extracranial internal carotid. Mild (<50%) stenosis left extracranial internal carotid. Patent and antegrade vertebrals bilaterally. Ordering Physician: Audrey Golden Referring Physician: Audrey Golden Performed By: Yakov Solis RVT
== END | disposition home or self-care (01) ==
LOC: CVS 09:55
PROVIDERS: PCP Internal Medicine; Referring Provider Internal Medicine; Visit Provider Internal Medicine
DX: I65.23 Occlusion and stenosis of bilateral carotid arteries (principal)
CPT/HCPCS: 93880

== ENCOUNTER → 2023-11-29 | Outpatient (CLI) | payer MEDICARE, BC, OTHER, SELFPAY ==
--- NOTE | 2023-11-29 09:55 | BI_ITS ---
MAMMOGRAPHY - BILATERAL SCREENING 3-D TOMOSYNTHESIS REASON FOR EXAM: Female, 88 years old. screening PERTINENT HISTORY: No significant family history. TECHNIQUE: 2-D mammograms and 3-D Tomosynthesis of the breast (s) were performed. CAD was performed. COMPARISON: 11/27/2022 FINDINGS: The breast composition is composed of scattered fibroglandular density. Scattered benign calcifications are seen. No dense spiculated masses or suspicious microcalcifications are identified. No architectural distortion is identified. There is no skin thickening or retraction. There has been no significant change since the prior study. Bilateral benign vascular calcifications can be associated with coronary artery disease. BI/SCRN MAMM (CAD)W/EDITA BILAT IMPRESSION: No mammographic signs of malignancy. Routine yearly mammograms recommended. ASSESSMENT CATEGORY: BIRADS Category 2: Benign. A letter regarding these results will be sent to the patient by the facility within 30 days. FOLLOW UP RECOMMENDATION: Yearly follow up mammogram recommended. (A) Approximately 10% of breast cancers are not detected by mammography. A normal mammogram should not delay biopsy of a clinically suspicious abnormality. Electronically Signed: Alvaro Su MD at 15:09 EST ,
== END | disposition home or self-care (01) ==
LOC: OPBI 09:55
PROVIDERS: PCP Internal Medicine; Referring Provider Internal Medicine; Visit Provider Internal Medicine
DX: Z12.31 Encounter for screening mammogram for malignant neoplasm of breast (principal)
CPT/HCPCS: 77063; 77067

== ENCOUNTER → 2024-02-27 | Outpatient (CLI) | payer MEDICARE, BC, OTHER, SELFPAY ==
--- NOTE | 2024-02-27 11:06 | MRI_ITS ---
STUDY: MRI LUMBAR SPINE WITHOUT CONTRAST REASON FOR EXAM: Female, 88 years old. low back pain and bilateral leg weakness TECHNIQUE: Standardized fat and water weighted pulse sequences were obtained in the sagittal and axial planes. COMPARISON: Lumbar spine x-rays February 19, 2024 FINDINGS: T12-L1: Normal endplates. Normal disc height, hydration and morphology. Normal bilateral facet joints. Normal central canal and bilateral lateral recesses. Normal bilateral intervertebral neural foramina. Normal lumbar lordosis. There is levoscoliosis. Normal conus medullaris that terminates at T12-L1 L1-2: Normal endplates. Normal disc height, desiccation and minimal annular bulge. Normal bilateral facet joints. Normal central canal and bilateral lateral recesses. Normal bilateral intervertebral neural foramina. L2-3: Normal endplates. Normal disc height, desiccation and minimal annular bulge. Normal bilateral facet joints. Normal central canal and bilateral lateral recesses. Normal bilateral intervertebral neural foramina. L3-4: Normal endplates. Normal disc height, desiccation and minor annular bulge.. Mild facet arthropathy more pronounced on the right and a prominent synovial cyst on the left extending inferiorly posterior to the L4 vertebral body. Normal central canal. Mild right lateral recess stenosis and severe left lateral and subarticular stenosis . Minor bilateral neural foraminal encroachment. L4-5: Grade 1 anterolisthesis Normal endplates. Normal disc height, desiccation and mild bulging disc osteophyte complex with small central disc extrusion with superior migration of disc fragment. Facet arthropathy and thickening of ligamenta flava.. Moderate narrowing of central canal and bilateral lateral recesses. Severe bilateral neural foraminal encroachment exaggerated by shortened pedicles L5-S1: Grade 1 spondylolisthesis Normal endplates. Normal disc height, desiccation and minimal bulging disc osteophyte complex. Facet arthropathy more severe on the left. Normal central canal and bilateral lateral recesses. Moderate to severe left neuroforaminal stenosis. Normal visualized sacral ala. Normal visualized paraspinous soft tissue structures. No significant change since previous exam given inherent differences in imaging modalities MRI/Spine Lumbar (Routine) IMPRESSION: No evidence for acute fracture or other significant bony pathology.. Scoliosis and degenerative changes. Multilevel spinal stenosis secondary to disc disease and bony hypertrophy most severe at L4-5 and L5-S1 with findings as above Electronically Signed: Edgar Salinas MD at 17:51 EDT ,
== END | disposition home or self-care (01) ==
LOC: MRI 10:58
PROVIDERS: PCP Internal Medicine; Referring Provider Internal Medicine; Visit Provider Internal Medicine
DX: M54.50 Low back pain, unspecified (principal)
CPT/HCPCS: 72148

== ENCOUNTER → 2024-05-20 | Outpatient (CLI) | payer MEDICARE, BC, OTHER, SELFPAY ==
--- NOTE | 2024-05-20 10:00 | BD_ITS ---
STUDY: DUAL ENERGY X-RAY ABSORPTIOMETRY / DXA REASON FOR EXAM: Female, 88 years old. [id number] TECHNIQUE: Bone Mineral Density (BMD) measurements of lumbar spine and bilateral hips were obtained. COMPARISON: None. FINDINGS: Lumbar Spine (L1-L4): g/cm2 (0.848) / T-score (-1.9) / Z-score (1.0) Findings are suggestive of osteopenia with a moderate fracture risk. Left Femur Total: g/cm2 (0.632) / T-score (-2.5) / Z-score (0.2) Left Femoral Neck: g/cm2 (0.502) / T-score (-3.1) / Z-score (-0.6) Right Femur Total: g/cm2 (0.676) / T-score (-2.2) / Z-score (0.2) Right Femoral Neck: g/cm2 (0.554) / T-score (-2.7) / Z-score (-0.1) The T-Scores on the most recent prior examination were: Lumbar Spine (L1-L4): There has been improvement of bone density since the previous examination. Left Femur Total: which represents a worsening of 0.1%. Right Femur Total: which represents a worsening of 5.1%. BD/Dexa Bone Density Study IMPRESSION: The patient is considered osteoporotic as outlined below according to World [employer] Organization (WHO) criteria with a high fracture risk. There has been worsening of bone density since the previous examination. Reference Information: The T-score is the number of standard deviations above or below the standard which is normal for young adults at their peak bone mineral density. The World Health Organization (WHO) interprets the T-scores as follows: Above -1 Normal bone density Between -1 and -2.5 Osteopenia Equal to / or below -2.5 Osteoporosis As a practical clinical guideline, osteopenia may be graded as follows: Mild -1 through -1.5 Moderate -1.6 through -2.0 Severe -2.1 through -2.4 The Z-score is the number of standard deviations above or below age-matched controls. A Z-score of less than -1.5 would be considered abnormal. References: 1. NIH Osteoporosis and Related Bone Diseases www osteo.org 2. International Society for Clinical Densitometry www iscd.org 3. National Osteoporosis Foundation www nof.org Electronically Signed: Arjun Dan MD at 15:30 EDT ,
== END | disposition home or self-care (01) ==
LOC: OPBD 09:56
PROVIDERS: PCP Internal Medicine; Referring Provider Internal Medicine; Visit Provider Internal Medicine
DX: Z78.0 Asymptomatic menopausal state (principal)
CPT/HCPCS: 77080

== ENCOUNTER → 2024-06-09 | Outpatient (CLI) | payer MEDICARE, BC, OTHER, SELFPAY ==
--- NOTE | 2024-06-09 12:56 | ECHOD_ITS ---
Reason For Study: cad/ashd Procedure This was a 2D Doppler, Color Flow transthoracic echocardiogram. Exam performed in department. Left Ventricle Normal LV size. Mild concentric left ventricular hypertrophy. Dyssynchronous septal wall motion secondary to underlying bundle branch block. Estimated LVEF 50%. Normal diastology for age. Right Ventricle Normal right ventricle. Atria The left atrium is mildly enlarged. Normal right atrium. Mitral Valve Moderate mitral annular calcification. Mild (1+) mitral valve insufficiency. Tricuspid Valve Mild tricuspid valve insufficiency. Normal pulmonary artery pressure. Aortic Valve Aortic sclerosis, no stenosis. Pulmonic Valve The pulmonic valve is not well visualized. Great Vessels Normal sized aortic root. Pericardium/Pleural No pericardial effusion. MMode/2D Measurements & Calculations LVIDd: 5.5 cm IVSd: 1.1 cm LVOT diam: 1.9 cm LVIDs: 4.1 cm LVPWd: 1.5 cm LVOT area: 2.9 cm2 RVDd: 2.4 cm FS: 24.9 % asc Aorta Diam: 3.1 cm LAV(MOD-bp): 50.8 ml LVAd ap4: 24.6 cm2 LAV(MOD-bp) Indexed: 32.4 ml/m2 LVLd ap4: 7.0 cm LAV(MOD-sp2): 51.6 ml EDV(MOD-sp4): 71.0 ml LAV(MOD-sp4): 51.8 ml EDV(sp4-el): 73.8 ml LVAs ap4: 13.8 cm2 LVLs ap4: 5.8 cm ESV(MOD-sp4): 27.2 ml ESV(sp4-el): 28.0 ml EF(MOD-sp4): 61.7 % EF(sp4-el): 62.1 % SV(MOD-sp4): 43.8 ml SV(sp4-el): 45.8 ml LA A4 area: 16.9 cm2 RA A4 area: 8.9 cm2 Time Measurements MV dec time: 0.26 sec Doppler Measurements & Calculations MV E max jason: 86.3 cm/sec Lat Peak E' Jason: 7.4 cm/sec Med Peak E' Jason: 3.9 cm/sec MV A max jason: 122.3 cm/sec E/E' lat: 11.7 E/E' med: 22.2 MV E/A: 0.71 Ao V2 max: 146.9 cm/sec LV V1 max: 98.2 cm/sec MV dec slope: 331.1 cm/sec2 Ao max P.6 mmHg LV V1 max P.9 mmHg Ao V2 mean: 100.5 cm/sec LV V1 mean P.1 mmHg Ao mean P.7 mmHg LV V1 mean: 68.1 cm/sec Ao V2 VTI: 36.4 cm LV V1 VTI: 20.8 cm AV (velocity ratio): 0.57 LOURDES(I,D): 1.7 cm2 LOURDES(V,D): 1.9 cm2 SV(LVOT): 60.4 ml PA V2 max: 98.0 cm/sec TR max jason: 258.8 cm/sec PA max PG (full): 1.2 mmHg TR max P.8 mmHg ECHO/Echo Complete Interpretation Summary Mild concentric left ventricular hypertrophy. Dyssynchronous septal wall motion secondary to underlying bundle branch block. Estimated LVEF 50%. Normal diastology for age. The left atrium is mildly enlarged. Moderate mitral annular calcification. Mild (1+) mitral valve insufficiency. Mild tricuspid valve insufficiency. Ordering Physician: Audrey Golden Referring Physician: Audrey Golden D.O. Performed By: Brooke Edmond and Student
== END | disposition home or self-care (01) ==
LOC: CVS 12:55
PROVIDERS: PCP Internal Medicine; Visit Provider Internal Medicine
DX: I25.10 Atherosclerotic heart disease of native coronary artery without angina pectoris (principal)
CPT/HCPCS: 93306

== ENCOUNTER → 2024-11-28 | Outpatient (CLI) | payer MEDICARE, BC, OTHER, SELFPAY ==
--- NOTE | 2024-11-28 09:04 | BI_ITS ---
PROCEDURE: SCRN MAMM (CAD)W/EDITA BILAT REASON FOR EXAM: F, Age 89 y/o, presents for annual screening mammogram. No family history of breast cancer. TECHNIQUE: Bilateral screening digital breast tomosynthesis with 2D and 3D images. Computer aided detection. COMPARISON: 11/29/2023 FINDINGS: The breasts are heterogeneously dense which may obscure small masses. The mammogram demonstrates that the patient has dense breasts. Supplemental screening with whole breast ultrasound or MRI may be considered for further evaluation. No suspicious masses, areas of developing architectural distortion, or suspicious calcifications. BI/SCRN MAMM (CAD)W/EDITA BILAT IMPRESSION: There is no mammographic evidence of malignancy. BI-RADS 1: NEGATIVE. RECOMMEND ANNUAL MAMMOGRAPHIC SCREENING. Follow-up code: Routine Follow-up The patient will be notified of the results by letter. Reading Location: [id number]
== END | disposition home or self-care (01) ==
LOC: OPBI 09:03
PROVIDERS: PCP Internal Medicine; Referring Provider Internal Medicine; Visit Provider Internal Medicine
DX: Z12.31 Encounter for screening mammogram for malignant neoplasm of breast (principal)
CPT/HCPCS: 77063; 77067

== ENCOUNTER → 2024-12-26 | Outpatient (CLI) | payer MEDICARE, BC, OTHER, SELFPAY ==
--- NOTE | 2024-12-26 10:03 | CDU_ITS ---
Reason For Study Reason For Study: Bilateral carotid artery stenosis Rt. Velocities/BP Lt. Velocities/BP Prox CCA 65.5/8.8 cm/sec. Prox CCA 68.3/9.7 cm/sec. Mid CCA 75.9/9.7 cm/sec. Mid CCA 82.5/11.6 cm/sec. Dist CCA 71.1/8.8 cm/sec. Dist CCA 83.4/8.8 cm/sec. Prox ICA 81.4/10.2 cm/sec. Prox ICA 98.6/12.6 cm/sec. Mid ICA 108.4/16.3 cm/sec. Mid ICA 96.1/13.9 cm/sec. Dist ICA 94.3/13.1 cm/sec. Dist ICA 103.5/21.2 cm/sec. Rt. ICA/CCA = 1.43. Lt. ICA/CCA = 1.25. Prox ECA 210.7 cm/sec. Prox ECA 104.7 cm/sec. Rt. Vert. 41.9/5 cm/sec. Lt. Vert. 51.9/7.7 cm/sec. Right Extracranial There is homogeneous, smooth atherosclerotic plaque noted in the right common carotid artery. There is heterogeneous, irregular atherosclerotic plaque noted in the right internal carotid artery. There is heterogeneous, irregular atherosclerotic plaque noted in the right external carotid artery. Antegrade flow is noted in the right vertebral artery. Left Extracranial There is homogeneous, smooth atherosclerotic plaque noted in the left common carotid artery. There is heterogeneous, irregular atherosclerotic plaque noted in the left internal carotid artery. There is heterogeneous, irregular atherosclerotic plaque noted in the left external carotid artery. Antegrade flow is noted in the left vertebral artery. Procedure Carotid Duplex 33654. This is a Carotid Duplex examination using B-mode, color flow and specral Doppler. Exam performed in department. VL/Carotid Duplex Ultrasound Interpretation Summary Mild (<50%) stenosis right extracranial internal carotid. Mild (<50%) stenosis left extracranial internal carotid. Flow within the vertebral arteries is antegrade bilaterally. Elevated velocities in the right external carotid artery suggest stenosis >50%. Ordering Physician: Audrey Golden Referring Physician: Audrey Golden Performed By: Kaitlynn Rai RVT
== END | disposition home or self-care (01) ==
LOC: CVS 10:00
PROVIDERS: PCP Internal Medicine; Referring Provider Internal Medicine; Visit Provider Internal Medicine
DX: I65.23 Occlusion and stenosis of bilateral carotid arteries (principal)
CPT/HCPCS: 93880

== ENCOUNTER → 2025-01-28 | Outpatient (CLI) | payer MEDICARE, BC, OTHER, SELFPAY ==
--- NOTE | 2025-01-28 14:52 | CT_ITS ---
PROCEDURE: CTA NECK W/WO CONTRAST 01/28/2025 REASON FOR EXAM: CTA OF NECK W T W/O CONTRAST - ABNORMAL CAROTID DOPP...BILATERA TECHNIQUE: CTA HEAD AND NECK WITH IV CONTRAST: Multiplanar and multisequence images were obtained. CONTRAST: VOLUME: mL Gauge IV One or more dose reduction techniques were used (e.g., Automated exposure control, adjustment of the mA and/or kV according to patient size, use of iterative reconstruction technique). RADIATION DOSE SUMMARY: CTDlvol: mGy DLP: mGycm COMPARISON: none FINDINGS: Patent aortic arch showing intimal irregularities. It gives rise to patent major vascular trunks showing ostial atherosclerotic changes. Patent common carotid arteries showing mild irregular intimal thickening with non significant calcified atheromatous plaques. No tight stenosis. Patent carotid bulbs showing fibrofatty and calcified atheromatous plaques with no tight stenosis. Patent external carotid arteries. Patent cervical segments, petrous, cavernous and supraclinoid segments of the internal carotid arteries with non significant calcified atheromatous plaques of their cavernous segments. No tight stenotic lesions, aneurysmal dilatation or dissecting intimal flaps. Patent anterior and middle cerebral arteries. No tight stenotic lesions, aneurysmal dilatation or dissecting intimal flaps. Patent vertebral arteries. No tight stenotic lesions, aneurysmal dilatation or dissecting intimal flaps. Patent basilar artery and its branches. No tight stenotic lesions, aneurysmal dilatation or dissecting intimal flaps. CT/CTA Neck W/WO Contrast IMPRESSION: Patent intra and extra-cranial carotid and vertebral arteries showing atheroscl erotic changes as detailed. No occlusion, aneurysmal dilatation or dissecting intimal flaps. Reading Location: [place] [id number]
== END | disposition home or self-care (01) ==
LOC: CT 14:50
PROVIDERS: PCP Internal Medicine; Referring Provider Internal Medicine; Visit Provider Internal Medicine
DX: R93.89 Abnormal findings on diagnostic imaging of other specified body structures (principal)
CPT/HCPCS: 70498; Q9967

== ENCOUNTER → 2025-06-30 | Outpatient (CLI) | payer MEDICARE, BC, OTHER, SELFPAY ==
[2025-06-30 11:43] LABS: Mucous, Urine 0 SEEN /hpf (<or=2+)
[2025-06-30 11:54] LABS: Color, Urine Yellow (Yellow); Glucose, Dipstick Normal (Normal); Hematocrit 38.8 % (37-47); Hemoglobin 13.0 g/dL (12.0-15.0); Immature Granulocytes Count 0.010 X10^3/uL (0.0-0.0); Ketone-Dipstick Negative (Negative); Leukocyte Esterase-Dipstick 500 /ul (Negative); Mean Corp Hgb Conc 33.5 g/dL (32-36); Mean Corpuscular Volume 96.3 fL (81-99); Mean Platelet Vol. 10.3 fl (6.2-12.0); NRBC Flagged by Analyzer 0 % (0-5); Nitrite-Dipstick Negative (Negative); Occult Blood-Urine 10 /ul (Negative); Platelet Count 170 K/mm3 (150-450); Protein-Dipstick 15 mg/dl (Negative); RBC Distribution Width CV 13.8 % (11.6-14.6); RBC Distribution Width SD 49.1 fl (35.1-43.9); Red Blood Count 4.03 M/mm3 (4.2-5.4); Specific Gravity, Urine 1.015 (1.002-1.030); Urine Bilirubin Dipstick Negative (Negative); White Blood Count 4.4 K/mm3 (4.4-11.0)
[2025-06-30 12:06] LABS: Red Blood Cells-Urine 0-5 SEEN /hpf (0-5); Squamous Epithelial Cells - UA 0-5 SEEN /hpf (5-10); Transitional Epithelial - Ur 0-5 SEEN /hpf (0-5)
[2025-06-30 12:25] LABS: Creatinine, Urine (random) 102.00 mg/dL (28.00-217.00); Microalbumin,Random Urine < 12.0 mg/L (<20 mg/L)
[2025-06-30 12:28] LABS: AST(SGOT) 17 U/L (<=31); Alanine Aminotransfer ALT/SGPT 10 U/L (<=34); Albumin, Serum 4.2 g/dL (3.4-4.8); Alkaline Phosphatase 76 U/L (35-104); Anion Gap 9 (5-15); BUN 19 mg/dL (4-19); BUN/Creat Ratio 18.3 RATIO (10-20); Calcium,Total 9.4 mg/dL (7.6-11.0); Carbon Dioxide 28.3 mmol/L (21.0-32.0); Chloride 105 mmol/L (98-108); Globulin 2.2 g/dL (2.2-4.2); Glucose 91 mg/dL (70-99); Potassium 4.1 mmol/L (3.3-5.1)
== END | disposition home or self-care (01) ==
PROVIDERS: PCP Internal Medicine; Referring Provider Internal Medicine; Visit Provider Internal Medicine
DX: I11.9 Hypertensive heart disease without heart failure (principal)
CPT/HCPCS: 80053; 81001; 82043; 82570; 85025